=== PATIENT | male | born 1955 | race Caucasian/White ===

== ENCOUNTER 2016-07-09 13:51 | Day surgery (SDC) | payer MEDICAID ==
[~2016-07-09] VITALS: Ht 182.9 cm; Wt 79.8 kg
[~2016-07-09 13:51] MED LIST: ASPIRIN 81MG TA81 MG PO; LIPITOR20 MG PO; NEXIUM40 MG PO; OXYCODONE HYDROC5 MG PO; PLAVIX75 M1 PO; REQUIP 1 MG TABL1 MG PO; SYNTHROID 0.1M0.1 MG PO; ZANAFLEX4 MG NG
[2016-07-09 14:01] VITALS: BP 127/71
[2016-07-09 14:26] VITALS: BP 127/71; BP 156/86
--- NOTE | 2016-07-09 14:34 | Procedure Note ---
Procedure detail Date of procedure: 07/09/16 Anesthesiologist: Flash chi CRNA Complications: None Pre-procedure diagnosis: Facet arthropathy Post-procedure diagnosis: Same Indications for procedure: This patient's a pleasant 61-year-old white male we our attempting to treat in our pain clinic for chronic low back pain secondary to degenerative disc disease lumbar spine multiple levels, disc bulge lumbar spine multiple levels, facet hypertrophy L4-5 and L5-S1. Patient is wanting to come off oral medications. Today we will perform medial branch block at L4 L5, L5-S1 Nursing benefits the patient today and he wishes to proceed. Procedure detail: Informed consent was obtained and the risk and benefits of the procedure was explained to the patient. Patient was taken to the procedure room where noninvasive monitors were placed, including noninvasive blood pressure cuff as well as pulse oximeter. The area over the lumbar spine was cleansed using chlorhexidine as a cleansing solution. I anesthetized the skin and subcutaneous tissues with 1% Lidocaine. I placed 22-gauge spinal needles into the facet joint / medial branches of, L4-L5, and L5-S1 bilaterally. Needle placement was confirmed with fluoroscopy. After confirmation of needle placement, each site was injected with 1 mL of 1% lidocaine and 0.25 % Marcaine and 10 mg of Depo- Medrol. A total of 80 mg of depo medrol was used for bilateral medial branch blocks of L4-L5, and L5-S1 bilaterally. Patient tolerated the procedure without difficulty. There were no complications. Plan and disposition: We will reassess this patient 10 minutes postprocedure. Patient states pain 80- 90 percent relief. We'll follow up with this patient in our pain clinic and reassess his symptoms at that time. at 0587
[2016-07-09 14:45] VITALS: BP 126/68
== END 2016-07-09 14:45 | disposition home or self-care (01) ==
LOC: PM 13:51
PROC: 3E0T33Z Introduction of Anti-inflammatory into Peripheral Nerves and Plexi, Percutaneous Approach (ICD-10-PCS; principal; 2016-07-09)
PROC: 3E0T3BZ Introduction of Anesthetic Agent into Peripheral Nerves and Plexi, Percutaneous Approach (ICD-10-PCS; 2016-07-09)
PROC: BR161ZZ Fluoroscopy of Lumbar Facet Joint(s) using Low Osmolar Contrast (ICD-10-PCS; 2016-07-09)
DX: M54.06 Panniculitis affecting regions of neck and back, lumbar region (principal); M51.36 Other intervertebral disc degeneration, lumbar region
CPT/HCPCS: J1040

== ENCOUNTER → 2016-08-09 | Outpatient (CLI) | payer MEDICAID ==
[2016-08-09 19:45] LABS: AMPHETAMINES/METAMPHETAMINES NEGATIVE ng/mL (<1000)
[2016-08-20 10:39] LABS: Alprazolam Negative (Cutoff=100); Benzodiazepines Negative ng/mL (Cutoff=100); Clonazepam Negative (Cutoff=100); Flurazepam Negative (Cutoff=100); Lorazepam Negative (Cutoff=100); Midazolam Negative (Cutoff=100); Opiates Negative (Cutoff=100); Temazepam Negative (Cutoff=100); Triazolam Negative (Cutoff=100)
== END ==
LOC: LAB 17:52
PROVIDERS: Emergency Medicine
DX: Z79.899 Other long term (current) drug therapy (principal)
CPT/HCPCS: G0480

== ENCOUNTER → 2016-12-13 | Outpatient (CLI) | payer MEDICAID ==
[2016-12-13 16:58] LABS: AMPHETAMINES/METAMPHETAMINES NEGATIVE ng/mL (<1000)
[2016-12-23 14:40] LABS: Opiates Negative (Cutoff=100)
== END ==
LOC: LAB 15:37
PROVIDERS: Emergency Medicine
DX: Z79.899 Other long term (current) drug therapy (principal)

== ENCOUNTER → 2017-01-13 | Outpatient (CLI) | payer MEDICAID ==
[2017-01-13 19:56] LABS: AMPHETAMINES/METAMPHETAMINES NEGATIVE ng/mL (<1000)
[2017-01-20 05:38] LABS: Opiates Negative (Cutoff=100)
== END ==
LOC: LAB 18:18
PROVIDERS: Emergency Medicine
DX: Z79.899 Other long term (current) drug therapy (principal)

== ENCOUNTER 2017-01-26 19:18 | Inpatient (IN) | payer MEDICAID ==
[~2017-01-26] VITALS: Ht 182.9 cm; Wt 81.4 kg
[~2017-01-26 19:18] MED LIST changes: -ZANAFLEX4 MG NG; +ZANAFLEX4 MG PO
[2017-01-26 19:28] VITALS: BP 90/47
[2017-01-26] MEDS ORDERED: SPIRIVA HA1 PUFF/INH IH (19:38)
[2017-01-26] MEDS ORDERED: SYMBICORT1 AE1 IH (19:39)
[2017-01-26] MEDS ORDERED: DIAZEPAM5 M1 PO (19:40)
[2017-01-26] MEDS ORDERED: XOPENOX 0.0.63 MG/3 IN (19:41)
[2017-01-26] MEDS ORDERED: ATROVENT H0.017 MG/A IH (19:43)
[2017-01-26] MEDS ORDERED: FLOMAX 0.4MG C0.4 MG PO (19:44)
[2017-01-26] MEDS ORDERED: MECLIZINE HYDRO25 MG PO (19:45)
[2017-01-26] MEDS ORDERED: LYRICA50 MG PO (19:45)
[2017-01-26 20:12] LABS: HEMOGLOBIN 11.7 g/dL (14.1-18.0); LYMPH # 0.9 K/mm3 (0.7-4.5); LYMPH % 7.2 % (10-50)
--- NOTE | 2017-01-26 20:12 | Emergency Room Report ---
History of Present Illness Time Seen by 1999 Presenting Problem in Triage Pt arrived:Wheelchair Presenting Problem:c/o sob, dizziness and vision problems. Has productive cough. 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 N Clinical Suspician of Infection? Y Mental Status: 1 - Regular (Normal Baseline) Sepsis Risk:Severe Sepsis Risk Have you (or family members/close friends) recently traveled outside the [place]? N If Yes, where/when: Have you had exposure to infectious disease within the past month? N TB? Other? Specify: Source patient, RN notes reviewed, family, old records Exam Limitations no limitations Comment fever with cough w/o hemoptysis and has weakness with hx of lung cancer has had throat cancer in past - pt with dec po intake and dec po intake - pt with inc sob and dec sob with exertion Cardiac Chest Pain Chest pain indicative of cardiac No Timing/Duration this evening Severity moderate ALLERGIES Coded Allergies: albuterol (08/02/15) Home Medications Reported Medications OXYCODONE HCL (Oxycodone Hydrochloride) 10 MG PO TID ROPINIROLE HCL (Requip 1 Mg) 4 MG PO DAILY Tiotropium [place] (Spiriva) 1 PUFF IH DAILY #30 BUDESONIDE/FORMOTEROL FUMARATE (Symbicort 160-4.5 Mcg Inhaler) 1 PUFF IH BID #10 Diazepam 5 MG PO BEDTIME #30 Levalbuterol Hcl (Xopenex 0.63MG NEB) 0.63 MG IN Q6 Ipratropium [place] (Atrovent Hfa) 2 PUFF IH QID #12 TAMSULOSIN HCL (Flomax 0.4MG) 0.4 MG PO QHS Pregabalin (Lyrica 50MG) 150 MG PO BID Meclizine Hcl (Meclizine Hydrochloride) 25 MG PO DAILY Clopidogrel Bisulfate (Plavix) 75 MG PO DAILY Levothyroxine Sodium (Synthroid 0.1MG) 0.1 MG PO DAILY TIZANIDINE HCL (Zanaflex) 4 MG NG Q8 Esomeprazole Magnesium (Nexium 40MG Cap) 40 MG PO DAILY Atorvastatin Calcium (Lipitor 20MG) 20 MG PO DAILY ASPIRIN (Aspirin) 81 MG PO DAILY History Medical History General CAD? No Angina: No [place]: No Hypertension? No Hyperlipidemia? Yes CHF? No DVT? No PE? No COPD? Yes Asthma? No Anemia? Yes GERD? No Gastric ulcers? No GI Bleed? No Hernia? No Thyroid Problems? Yes Hypothyroidism? Yes CVA? Yes Seizures? No Diabetes? No Renal Insuffiency? No End Stage Renal Disease? No UTI? No Stones? No BPH? No GB Disease: No Nephritic Syndrome? No Asplenia? No Hepatitis? No Sickle Cell Disease? No Arthritis? No Migraines? No Cataracts? No Glaucoma? No MRSA? No HIV? No TB? No Anxiety? No Depression? No Cancer? Yes Site: LUNG More? Yes Additional hx: STENTS IN NECK, SPOTS ON LIVER OXYGEN USE, [place] RLS Immunization Hx DT/Tetanus 1-4 Years Ago Surgical Hx Previous Surgery?Y COLONOSCOPY FEEDING TUBE STENTS IN NECK BYPOSY Social History Smoking Hx Smoker: Current Every Day Smoker Tobacco: Yes Type Cigarettes Packs/day < 1 Pack Alcohol Alcohol: No Drugs none Additionial History Additional History no chest pain Review of Systems All Other Systems Reviewed and Negative Constitutional see HPI, fever, weakness Eyes denies drainage ENT denies: ear discharge, epistaxis, throat pain. Respiratory see HPI, cough, shortness of breath, denies wheezing Cardiovascular see HPI, denies chest pain, denies syncope, other Gastrointestinal see HPI, nausea, denies vomiting Genitourinary denies: dysuria, frequency, hesitancy, hematuria. Musculoskeletal denies back pain, denies joint pain, denies neck pain Skin denies rash Psychiatric/Neurological denies headache, denies seizure Physical Exam Vital Signs Vital Signs Date Time Temp Pulse Resp B/P Pulse O2 O2 Flow FiO2 Ox Delivery Rate 01/27 1928 99.2 75 20 90/47 96 3 - WBC >12,000 or <4,000 or 10% bands? 2 or more SIRS Criteria Met? B/P:83/49 MAP:61 Creatinine >2.0? UA output<0.5ml/kg/hr for 2 hrs? Platelet count >100,000? Lactate >2.0mmol/1? INR >1.2 or PTT > than 60 sec? Evidence of Organ Dysfunction? Provider documented clinical suspician of infection? Y Sepsis Criteria Count: 2 Sepsis Risk: Severe Sepsis Risk General Appearance no apparent distress Eye Exam - bilateral eye PERRL, bilateral eye EOMI Ear, Nose, Throat normal ENT inspection Neck supple Respiratory Status No: respiratory distress. Lung Sounds bilateral: decreased breath sounds, rhonchi. 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 No Results/Orders Laboratory Tests 01/26/171946: Troponin I 1.79 H 01/26/171946: Lactic Acid 2.2 H, ESR Pending 01/26/171946: Sodium 131 L, Potassium 4.4, Chloride 94 L, Carbon Dioxide 31, BUN 19 H, Creatinine 1.7 H, Estimated Creat Clear 49 L, Estimated GFR (MDRD) 41, Glucose 124 H, Calcium 8.3 L, Total Bilirubin 0.5, AST 17, ALT 14, Alkaline Phosphatase 64, Total Protein 6.5, Albumin 3.1 L, Globulin 3.4 H, Albumin/ Globulin Ratio 0.9 L, WBC 12.0 H, RBC 3.90 L, Hgb 11.7 L, Hct 36.5 L, MCV 93.5, RDW 14.6, Plt Count 158, MPV 7.6, Gran % 84.9 H, Gran # 10.2 H, Lymphocytes % 7.2 L, Monocytes % 6.3, Eosinophils % 0.9, Basophils % 0.7, Lymphocytes # 0.9, Monocytes # 0.8, Eosinophils # 0.1, Basophils # 0.1, PUBS MCHC 32.0, MCH 29.9 Current Medication Orders Sig/Flip Start time Last Medication Dose Route Stop Time Status Admin Sodium Chloride 1,000 ML .STK-MED ONE 01/26 2018 DC IV Sodium Chloride 1,000 ML .Q4H 01/26 2015 AC 01/26 IV 01/27 Sodium Chloride 10 ML PRN PRN 01/26 2015 AC IV 01/27 2013 Sodium Chloride 10 ML PRN PRN 01/27 2000 AC IV 01/27 1947 Orders Procedure Date/time Status DIET-NOTHING BY MOUTH 01/[address] CHEST W/O CONTRAST 01/26 2018 Active Decision to admit 01/[address] SCAN REQ 01/27 2016 Complete CULTURE, SPUTUM 01/27 2012 Active TROPONIN I 01/27 2012 Complete SED RATE 01/27 2012 Active CHEST-PORTABLE 01/27 1948 Active IV SALINE LOCK 01/27 1948 Active CULTURE, BLOOD 01/27 1948 Active LACTIC ACID 01/27 1948 Complete CBC WITH AUTO DIFF 01/27 1948 Complete CHEM 12 PROFILE 01/27 1948 Complete CM/EKG 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 ST/Twave chgs XRAY/CT/US XRAY/CT/US XRAY chest XR interpretation by reviewed by me Xray Results abnormal (cap) Departure Departure Time of Disposition 2016 Disposition Still a Patient Clinical Impression Primary Impression: Non-STEMI (non-ST elevated myocardial infarction) Secondary Impressions: Pneumonia Qualifiers: Pneumonia type: due to unspecified organism Laterality: right Lung location: lower lobe of lung Qualified Code: J18.1 - Lobar pneumonia, unspecified organism Renal insufficiency Condition STABLE Referrals Anna MORENO,Klaus Cabrera (Family) ED Critical Care Critical Care No at [id number]
[2017-01-26 21:53] VITALS: BP 80/47
[2017-01-26 22:00] VITALS: BP 80/47
[2017-01-26 22:30] VITALS: BP 98/59
--- NOTE | 2017-01-26 22:49 | RADIOLOGY REPORT PS360 ---
CHEST-PORTABLE HISTORY: C/O SOB COPD. Cough. Patient Age: 61 years: Male Ordering Physician: Klaus Castillo MD TECHNIQUE: AP portable upright chest COMPARISON :Previous for 191 CXR FINDINGS Infiltrate is seen throughout the right lung base and to lesser degree right midlung. Findings compatible the right lower lobe pneumonia extending to the likely inferior aspect of right upper lobe at right midlung . COPD hyperexpansion. Mild coarsening markings toward left lung base reflecting mainly chronic changes. Small density projecting second rib end of of shows no significant finding on subsequent CT... Heart is normal in size jesse and mediastinal structures appear satisfactory. Calcified hilar nodes bilaterally The previous dense right upper lobe pneumonia has since resolved since 08/15/2015. Chest wall unremarkable IMPRESSION: ...... 1. Right lower lobe pneumonia; appears to extend into inferior RUL. 2. COPD.
[2017-01-26 23:00] VITALS: BP 96/55
[2017-01-27] VITALS (15 sets, daily range): BP systolic 97–128; BP diastolic 55–67
[2017-01-27 05:18] LABS: HEMOGLOBIN 11.1 g/dL (14.1-18.0); LYMPH # 0.7 K/mm3 (0.7-4.5); LYMPH % 4.8 % (10-50)
[2017-01-27 05:40] LABS: NEUTROPHILS 77 % (42-76)
--- NOTE | 2017-01-27 08:27 | PHARMACY CLINIC NOTE ---
Patient Demographics Patient Demographics Admission date: 01/26/17 Date: 01/27/17 Time: 08 Allergies Coded Allergies: albuterol (08/02/15) HEIGHT- FT: 6 IN: 0.00 K.363 VTE General Information Labs: Laboratory Tests 01/27 01/26 0500 1947 Hematology Hgb (14.1 - 18.0 g/dL) 11.1 L 11.7 L Hct (42.0 - 52.0 %) 34.3 L 36.5 L Plt Count (142 - 424 K/mm3) 141 L 158 Disclaimer The following section includes nursing documentation that has been pulled in for pharmacy review. Patient's VTE score: 6 Patient's VTE Risk: MOD RISK Clinical trial participant? No VTE prophylaxis [id number] VTE prophylaxis ordered? Yes Type of prophylaxis/treatment: VIVIAN at 0810
--- NOTE | 2017-01-27 08:54 | CONSULT NOTE ---
Standard Demographics Patient Demo Date of Consultation: 01/27/17 Referring Provider: Joe Castillo MD Reason for Consultation: NSTEMI PRIMARY DIAGNOSIS: NSTEMI Problem list Problem list: 1. CAD A. Cardiac cath, 2014, mild non-flow limiting disease. 2. History of throat cancer 3. Still smoking A. Reportedly with RIGHT lung cancer that is being watched at this time. 4. Carotid artery stenosis A. History of multiple stents bilaterally History of present illness: History of present illness: 61-year-old white male with 2 day history of increasing weakness, shortness of breath and fatigue. He has noted increased cough with decreased appetite. Upon further questioning patient has had some lightheadedness and dizziness with jaw discomfort over the last several weeks. Symptoms occur after exercise when he is sitting down and resolve spontaneously. Limiting symptoms for his activity is weakness and he denies chest pain. Upon evaluation in the ER yesterday elevated troponins were noted and patient was admitted for pneumonia and a non-STEMI. Cardiology consulted for evaluation and recommendations. Electrocardiogram is sinus with no acute ST elevation. Past Medical History: General: Hypertension No CVA Yes Seizures No TB No COPD Yes Asthma No Diabetes No Angina No [place] No Hyperlipidemia Yes Cancer Yes MRSA No GB Disease No Additional hx STENTS IN NECK, SPOTS ON LIVER OXYGEN USE, [place] RLS Past Surgical HX: Previous Surgery?Y COLONOSCOPY FEEDING TUBE STENTS IN NECK BYPOSY Allergies Coded Allergies: albuterol (08/02/15) Home medications: Reported Medications TIZANIDINE HCL (Zanaflex) 4 MG PO Q8 OXYCODONE HCL (Oxycodone Hydrochloride) 10 MG PO TID ROPINIROLE HCL (Requip 1 Mg) 4 MG PO DAILY Tiotropium [place] (Spiriva) 1 PUFF IH DAILY #30 BUDESONIDE/FORMOTEROL FUMARATE (Symbicort 160-4.5 Mcg Inhaler) 1 PUFF IH BID #10 Diazepam 5 MG PO BEDTIME #30 Levalbuterol Hcl (Xopenex 0.63MG NEB) 0.63 MG IN Q6 Ipratropium [place] (Atrovent Hfa) 2 PUFF IH QID #12 TAMSULOSIN HCL (Flomax 0.4MG) 0.4 MG PO QHS Pregabalin (Lyrica 50MG) 150 MG PO BID Meclizine Hcl (Meclizine Hydrochloride) 25 MG PO DAILY Clopidogrel Bisulfate (Plavix) 75 MG PO DAILY Levothyroxine Sodium (Synthroid 0.1MG) 0.1 MG PO DAILY Esomeprazole Magnesium (Nexium 40MG Cap) 40 MG PO DAILY Atorvastatin Calcium (Lipitor 20MG) 20 MG PO DAILY ASPIRIN (Aspirin) 81 MG PO DAILY Current Medications: Current Medications Azithromycin 500 MG Q24H IV Sodium Chloride 250 ML Ceftriaxone Sodium 1 GM DAILY IV Sodium Chloride 50 ML Fentanyl Citrate 25 MCG PRN PRN IV (UNV) Fentanyl Citrate 50 MCG PRN PRN IV (UNV) Flumazenil 0.2 MG PRN PRN IV (UNV) Heparin Sodium (Beef Lung) 5,000 UNITS PRN PRN IV (UNV) Heparin Sodium/Sodium Chloride 3,000 UNITS PRN PRN IV (UNV) Lidocaine HCl 20 ML ONCE ONE IJ (UNV) Midazolam HCl 1 MG PRN PRN IV (UNV) Midazolam HCl 1 MG PRN PRN IV (UNV) Naloxone HCl 0.4 MG [id number] PRN IV (UNV) Nitroglycerin 800 MCG PRN PRN IV (UNV) Verapamil HCl 5 MG PRN PRN IV (UNV) Sodium Chloride 10 ML PRN PRN IV Levalbuterol HCl 1.25 MG Q6H6 INH Acetaminophen 650 MG Q4HP PRN PO Aspirin 325 MG ONCE ONE PO (DC) Influenza Virus Vaccine Quadrival 0.5 ML PRN PRN IM Morphine Sulfate 2 MG Q2HP PRN IV Nicotine 21 MG DAILYP PRN TD Ondansetron HCl 4 MG Q6HP PRN IV Sodium Chloride 1,000 ML .[id number] IV Aspirin 0 .STK-MED ONE .ROUTE (DC) Azithromycin 0 .STK-MED ONE IV (DC) Ceftriaxone Sodium 0 .STK-MED ONE IV (DC) Azithromycin 500 MG ONCE ONE IV (DC) Sodium Chloride 250 ML Ceftriaxone Sodium 1 GM ONCE ONE IV (DC) Sodium Chloride 50 ML Methylprednisolone Sodium Succinate 125 MG ONCE ONE IV (DC) Methylprednisolone Sodium Succinate 0 .STK-MED ONE .ROUTE (DC) Sodium Chloride 250 ML .STK-MED ONE IV (DC) Sodium Chloride 50 ML .STK-MED ONE IV (DC) Sodium Chloride 1,000 ML .STK-MED ONE IV (DC) Sodium Chloride 1,000 ML .Q4H IV (DC) Sodium Chloride 10 ML PRN PRN IV Sodium Chloride 10 ML PRN PRN IV Immunization HX DT/Tetanus 1-4 Years Flu 2015-17FS Pneumonia RECEIVED IN PAST Other NEEDS A FLU SHOT TB Test in last year No Family history Family HX Family Hx Insignificant No Diabetes Yes CAD Yes Hypertension Yes Hyperlipidemia Yes Cancer No TB No Social Hx: Smoking HX Tobacco Yes Type Cigarettes Packs/day < 1 PACK Alcohol Alcohol: No Hx of Drug Use Drug Use? No Patien't marital status is Patient's support system is good Review of systems: Constitutional weakness. Respiratory cough. Cardiovascular see HPI Gastrointestinal/Abdominal No no symptoms reported Genitourinary No: no symptoms reported. Musculoskeletal neck pain. Neurological No: no symptoms reported. Exam: Admission Vital Signs: 1ST Vital Signs Result Date Time Pulse Ox 96 01/27 1928 B/P 90/47 01/27 1928 O2 Flow Rate 3 01/27 1928 Temp 99.2 01/27 1928 Pulse 75 01/27 1928 Resp 20 01/27 1928 O2 Delivery OXYGEN 01/26 2159 Last Vital Signs: Vital Signs Result Date Time O2 Flow Rate 2 01/27 600 Pulse Ox 97 01/27 600 B/P 115/64 01/27 600 O2 Delivery OXYGEN 01/27 600 Pulse 73 01/27 600 Resp 20 01/27 600 Temp 97.7 01/27 0415 Exam General appearance: alert, awake, no acute distress Neck: carotid bruit Cardiovascular: regular rate & rhythm Respiratory: diminished breath sounds, rhonchi ABD: soft, no tenderness Extremities: moves all, no peripheral edema Neuro: alert, intact, oriented Laboratory data: Laboratory Tests 01/27/17 0500: Sodium 129 L, Potassium 4.0, Chloride 95 L, Carbon Dioxide 28, BUN 19 H, Creatinine 1.3, Estimated Creat Clear 67, Estimated GFR (MDRD) 56, Glucose 151 H, Calcium 7.7 L, Triglycerides 13 L, Cholesterol 82, LDL Cholesterol 30.4, VLDL Cholesterol 2.6, HDL Cholesterol 49.0, WBC 14.2 H, RBC 3.62 L, Hgb 11.1 L, Hct 34.3 L, MCV 94.5, RDW 14.7, Plt Count 141 L, MPV 7.7, Gran % 92.0 H, Gran # 13.1 H, Total Counted 100, Lymphocytes % 4.8 L, Monocytes % 2.6, Eosinophils % 0.5, Basophils % 0.1, Neutrophils 77 H, Band Neutrophils 20 H, Lymphocytes (Manual) 3 L, Lymphocytes # 0.7, Monocytes # 0.4, Eosinophils # 0.1 , Basophils # 0.0, Platelet Estimate NORMAL, Polychromasia SL., Poikilocytosis SL., Rouleaux SL., PUBS MCHC 32.5, MCH 30.8 01/27/17 0030: Lactic Acid 1.2 01/26/171946: Troponin I 1.79 H 01/26/171946: Lactic Acid 2.2 H, ESR 25 H 01/26/171946: Sodium 131 L, Potassium 4.4, Chloride 94 L, Carbon Dioxide 31, BUN 19 H, Creatinine 1.7 H, Estimated Creat Clear 49 L, Estimated GFR (MDRD) 41, Glucose 124 H, Calcium 8.3 L, Total Bilirubin 0.5, AST 17, ALT 14, Alkaline Phosphatase 64, Total Protein 6.5, Albumin 3.1 L, Globulin 3.4 H, Albumin/ Globulin Ratio 0.9 L, WBC 12.0 H, RBC 3.90 L, Hgb 11.7 L, Hct 36.5 L, MCV 93.5, RDW 14.6, Plt Count 158, MPV 7.6, Gran % 84.9 H, Gran # 10.2 H, Lymphocytes % 7.2 L, Monocytes % 6.3, Eosinophils % 0.9, Basophils % 0.7, Lymphocytes # 0.9, Monocytes # 0.8, Eosinophils # 0.1, Basophils # 0.1, PUBS MCHC 32.0, MCH 29.9 Microbiology Date/Time Procedure - Status Source Growth 01/26 2310 Sputum Culture - COMP SPUTUM 01/26 2310 Gram Stain - COMP SPUTUM 01/26 1947 Anaerobic Blood Culture - RECD BLOOD 01/26 1947 Aerobic Blood Culture - RECD BLOOD 01/26 1947 Anaerobic Blood Culture - RECD BLOOD 01/26 1947 Aerobic Blood Culture - RECD BLOOD Plan: Assessment: 1. Elevated troponin consistent with non-STEMI. Continue aspirin and Plavix. Plan for LEFT heart catheterization today. 2. Chronic obstructive pulmonary disease with continued tobacco use 3. RIGHT lower lobe pneumonia by chest x-ray, on antibiotics. Recurrent pneumonia due to aspiration since treatment for throat cancer and non-compliance with dietary recommendations (thickened liquids). 4. Hyponatremia 5. Mild anemia 6. Hyperlipidemia, on statin therapy. LDL 30. 7. Hypothyroidism, on replacement therapy 8. Possible lung cancer 9. History of throat cancer 10. Bilateral carotid bruits with history of stenting bilaterally. Will obtain carotid ultrasound for follow-up. Recommendations: See above. at 0810
[2017-01-27] MEDS ORDERED: LYRICA150 M1 PO (08:56)
[2017-01-27] MEDS ORDERED: NEXIUM 24HR20 MG PO (08:57)
--- NOTE | 2017-01-27 09:09 | HISTORY AND PHYSICAL REPORT ---
Demographics: Admit date: 01/26/17 Chief complaint: sob PRIMARY DIAGNOSIS: NSTEMI Allergies: Coded Allergies: albuterol (08/02/15) History of present illness: History of present illness: 61-year-old white male with 2 day history of increasing weakness, shortness of breath and fatigue. He has noted increased cough with decreased appetite. Upon further questioning patient has had some lightheadedness and dizziness with jaw discomfort over the last several weeks. Symptoms occur after exercise when he is sitting down and resolve spontaneously. Limiting symptoms for his activity is weakness and he denies chest pain. Upon evaluation in the ER yesterday elevated troponins were noted and patient was admitted for pneumonia and a non-STEMI. Cardiology consulted for evaluation and recommendations. Electrocardiogram is sinus with no acute ST elevation. Past medical history: Family HX Diabetes Yes CAD Yes Hypertension Yes Hyperlipidemia Yes Cancer No TB No Immunization HX DT/Tetanus 1-4 Years Ago Flu 2015-FS Pneumonia Received In Past Other NEEDS A FLU SHOT TB Test in last year No General CAD? No Angina: No OR: No Hypertension? No Hyperlipidemia? Yes CHF? No DVT? No PE? No COPD? Yes Asthma? No Anemia? Yes GERD? No Gastric ulcers? No GI Bleed? No Hernia? No Thyroid Problems? Yes Hypothyroidism? Yes CVA? Yes Seizures? No Diabetes? No Renal Insuffiency? No UTI? No Stones? No BPH? No GB Disease: No Nephritic Syndrome? No Asplenia? No Hepatitis? No Sickle Cell Disease? No Arthritis? No Migraines? No Cataracts? No Glaucoma? No MRSA? No HIV? No TB? No Anxiety? No Depression? No Cancer? Yes Site: LUNG More? Yes Additional hx: STENTS IN NECK, SPOTS ON LIVER OXYGEN USE, TAZLINA RLS Past Surgical HX Previous Surgery?Y COLONOSCOPY FEEDING TUBE STENTS IN NECK BYPOSY Current home meds: Reported Medications TIZANIDINE HCL (Zanaflex) 4 MG PO Q8 Pregabalin (Lyrica) 150 MG PO BID #60 Esomeprazole Magnesium (Nexium 24HR) 20 MG PO BID #60 OXYCODONE HCL (Oxycodone Hydrochloride) 10 MG PO TID ROPINIROLE HCL (Requip 1 Mg) 4 MG PO DAILY Tiotropium Willard (Spiriva) 1 PUFF IH DAILY #30 BUDESONIDE/FORMOTEROL FUMARATE (Symbicort 160-4.5 Mcg Inhaler) 1 PUFF IH BID #10 Diazepam 5 MG PO BEDTIME #30 Levalbuterol Hcl (Xopenex 0.63MG NEB) 0.63 MG IN Q6 Ipratropium Willard (Atrovent Hfa) 2 PUFF IH QID #12 TAMSULOSIN HCL (Flomax 0.4MG) 0.4 MG PO QHS Meclizine Hcl (Meclizine Hydrochloride) 25 MG PO DAILY Clopidogrel Bisulfate (Plavix) 75 MG PO DAILY Levothyroxine Sodium (Synthroid 0.1MG) 0.1 MG PO DAILY Atorvastatin Calcium (Lipitor 20MG) 20 MG PO DAILY ASPIRIN (Aspirin) 81 MG PO DAILY Social Hx: Smoking HX Tobacco Yes Type Cigarettes Packs/day < 1 PACK Alcohol Alcohol: No Hx of Drug Use Drug Use? No Patien't marital status is Patient's support system is excellent Review of systems: Constitutional see HPI, weakness. No: fever. Eyes No: drainage. Ears, Nose, Mouth, Throat No ear discharge, No epistaxis, No throat pain Respiratory cough, shortness of breath. No: wheezing. Cardiovascular see HPI, No chest pain, No palpitations, No syncope, other Gastrointestinal/Abdominal see HPI, No abdominal pain, No diarrhea, nausea, poor appetite, poor fluid intake Genitourinary No: dysuria, frequency, hesitancy, hematuria. Musculoskeletal No: back pain, joint pain, joint swelling, neck pain. Skin No: rash. Neurological No: headache, seizure disorder. Psychiatric No: anxious, depressed. Exam: Lab data for last 24 hours: Laboratory Tests 01/27/17 0500: Sodium 129 L, Potassium 4.0, Chloride 95 L, Carbon Dioxide 28, BUN 19 H, Creatinine 1.3, Estimated Creat Clear 67, Estimated GFR (MDRD) 56, Glucose 151 H, Calcium 7.7 L, Triglycerides 13 L, Cholesterol 82, LDL Cholesterol 30.4, VLDL Cholesterol 2.6, HDL Cholesterol 49.0, WBC 14.2 H, RBC 3.62 L, Hgb 11.1 L, Hct 34.3 L, MCV 94.5, RDW 14.7, Plt Count 141 L, MPV 7.7, Gran % 92.0 H, Gran # 13.1 H, Total Counted 100, Lymphocytes % 4.8 L, Monocytes % 2.6, Eosinophils % 0.5, Basophils % 0.1, Neutrophils 77 H, Band Neutrophils 20 H, Lymphocytes (Manual) 3 L, Lymphocytes # 0.7, Monocytes # 0.4, Eosinophils # 0.1 , Basophils # 0.0, Platelet Estimate NORMAL, Polychromasia SL., Poikilocytosis SL., Rouleaux SL., PUBS MCHC 32.5, MCH 30.8 01/27/17 0030: Lactic Acid 1.2 01/26/171946: Troponin I 1.79 H 01/26/171946: Lactic Acid 2.2 H, ESR 25 H 01/26/171946: Sodium 131 L, Potassium 4.4, Chloride 94 L, Carbon Dioxide 31, BUN 19 H, Creatinine 1.7 H, Estimated Creat Clear 49 L, Estimated GFR (MDRD) 41, Glucose 124 H, Calcium 8.3 L, Total Bilirubin 0.5, AST 17, ALT 14, Alkaline Phosphatase 64, Total Protein 6.5, Albumin 3.1 L, Globulin 3.4 H, Albumin/ Globulin Ratio 0.9 L, WBC 12.0 H, RBC 3.90 L, Hgb 11.7 L, Hct 36.5 L, MCV 93.5, RDW 14.6, Plt Count 158, MPV 7.6, Gran % 84.9 H, Gran # 10.2 H, Lymphocytes % 7.2 L, Monocytes % 6.3, Eosinophils % 0.9, Basophils % 0.7, Lymphocytes # 0.9, Monocytes # 0.8, Eosinophils # 0.1, Basophils # 0.1, PUBS MCHC 32.0, MCH 29.9 Microbiology 01/26 2310 SPUTUM: Sputum Culture - COMP 01/26 2310 SPUTUM: Gram Stain - COMP 01/26 1947 BLOOD: Anaerobic Blood Culture - RECD 01/26 1947 BLOOD: Aerobic Blood Culture - RECD 01/26 1947 BLOOD: Anaerobic Blood Culture - RECD 01/26 1947 BLOOD: Aerobic Blood Culture - RECD Admission vital signs: 1ST Vital Signs Result Date Time Pulse Ox 96 01/27 1928 B/P 90/47 01/27 1928 O2 Flow Rate 3 01/27 1928 Temp 99.2 01/27 1928 Pulse 75 01/27 1928 Resp 20 01/27 1928 O2 Delivery OXYGEN 01/26 2159 Exam General appearance: alert Eyes: anicteric, PERRLA ENT: dry mucous membranes Neck: no JVD Cardiovascular: regular rate & rhythm, murmur Respiratory: no respiratory distress, rhonchi ABD: soft Genitourinary: no hematuria Extremities: moves all Musculoskeletal: equal muscle strength Skin: dry 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 Renal insufficiency 2. CAP (community acquired pneumonia) 3. Non-STEMI (non-ST elevated myocardial infarction) 4. Radiculopathy of lumbar region 5. Dysphagia Plan: will use abx and have card see pt at 0908
--- NOTE | 2017-01-27 09:39 | RADIOLOGY REPORT PS360 ---
CT CHEST W/O CONTRAST HISTORY: COUGH/CANCER history of lung cancer and throat cancer Patient Age: 61 years: Male Ordering Physician: Klaus Castillo MD TECHNIQUE: Helical CT scanning performed the chest. No oral or IV contrast utilized. COMPARISON :Previous CTA chest for . FINDINGS Prominent COPD.. Centrlobar emphysematous changes with hyperexpansion. Prominent bleb formation. Most evident towards the apices and upper lung giordano Patchy bronchopneumonia pattern throughout right lung. Numerous patchy areas of infiltrate surrounding the airways seen involving the lateral RLL, Right Middle Lobe ( mainly lateral segment RML), as well as patchy infiltrates extending into the RUL. Findings compatible with bronchopneumonia throughout these regions.. With some of these areas more prominent areas infiltrate there appears to be slight airway thickening... For example at the dense infiltrates seen lateral aspect of theq right lower lobe and lateral right middle lobe. At the RUL on axial image 30 there focal more stellate appearing density measures over 11 mm size with radiating margins is associated with a linear area of scarring which extends posteriorly at the RUL best seen on sagittal images 32-36.. Given history a history of lung cancer this could be related to such. No interval studies of the chest at this facility since July 2015 available for comparison.. Resume her outside studies. In either case this area requires a follow-up CT after the acute pneumonia episode resolves . Generous right jesse most likely reflecting generous pulmonary artery. No discrete hilar or significant mediastinal adenopathy. Scattered calcified nodes at right jesse and subcarinal region reflecting old granulomatous disease. Left lung. Only note Slight coarsening markings at the very inferior aspect of posterior sulcus reflecting likely mild fibrotic changes and atelectasis here. Doubt infiltrate here on left. No discrete focal pneumonia otherwise on left lung Uppermost abdomen. Adrenals appear satisfactory. Limited views of liver slightly inhomogeneous appearance but are this is due to streak artifact. No pleural or chest wall lesions.No pleural effusion.. No pneumothorax No rib fracture or lesions. Thoracic Spine with mild degenerative changes but no lesions evident. Dense common carotid artery calcification vs possible stents noted here bilaterally. IMPRESSION: 1. Bronchopneumonia involving the right lower lobe, right middle and right upper lobe 2. Particularly note more bothersome stellate 11 mm nodular density seen at the RUL axial image 30/coronal slice 49.. Although this could be associated with the linear area of scarring extending posteriorly at the RUL. Cannot exclude a significant lung lesion/nodule here particularly with given history... Requires correlation with history & any outside interval studies since July,. Recommend follow-up CT with contrast within 1 month, & after the current pneumonia resolves to further evaluate this region. 3. Pronounced Emphysema. Hyperexpansion/COPD. Bleb formation most evident at the apices.
--- NOTE | 2017-01-27 11:44 | RADIOLOGY REPORT PS360 ---
CARDIAC CATHETERIZATION DATE OF CATHETERIZATION:01/27/2017 11:18 AM PROCEDURES: 1. Left heart catheterization 2. Left ventriculogram 3. Selective coronary angiogram 4. Bare-metal stent deployment to the mid large circumflex artery INDICATION FOR TEST: 1. Acute non-ST elevation myocardial infarction troponin I 1.79 2. History of presumed lung cancer with possible preoperative evaluation needed for partial pneumonectomy 3. Coronary artery disease Informed consent was obtained prior to the procedure. COMPLICATIONS: None ESTIMATED BLOOD LOSS: Less than 10 ml. TECHNIQUE: One percent lidocaine was used to anesthetize the right groin. The right femoral artery was accessed via the Seldinger technique. A 4-Monegasque sheath was placed in the right femoral artery. The JL-4 and JR-4 catheter was also used to perform left heart catheterization selective coronary angiogram and left ventriculogram. There was a lesion in the circumflex artery which was the likely culprit for the acute non-ST elevation myocardial infarction. After much consideration and was decided this vessel should be revascularized in hopes to give this gentleman the best opportunity for potential lung surgery for his presumed lung cancer. I felt a bare-metal stent would provide him acute non-ST elevation myocardial infarction coverage as well as allow him to have surgery in 5 weeks while being off dual antiplatelet therapy. Because of this 8000 units of heparin was administered intra-arterially creating an ACT out of range. Brilinta 180 mg was given on the table and the 4 Monegasque sheath was exchanged for a 6 Monegasque sheath. An EBU 3.75 guide catheter was used intubate the left main artery and a BMW wire was placed in the circumflex artery. A 3 mm x 22 mm bare-metal integrity stent was deployed at 20 warner. 700 mcg of coronary nitroglycerin was administered and there remains defect distally. A 3 mm x 9 mm bare-metal stent was then deployed at 14 warner with the balloon brought back between the 2 stents and deployed at 24 measuring. JAVIER-3 flow was present before and after the procedure. At the end of the procedure the apparatus was removed the groin is reprepped closure changed sheath was removed good hemostasis was achieved using Perclose device patient transferred to the postop holding area in stable condition ANGIOGRAPHIC RESULTS: 1. The left main artery normal 2. The left anterior descending artery is a tortuous vessel with a mild mid myocardial bridge and free of atherosclerotic plaque 3. The circumflex artery is a large vessel and has a mid vessel 40-50% stenosis which appears to be the culprit for the acute non-STEMI 4. The ramus intermedius is a large vessel and normal 5. The right coronary artery is a nondominant yet still large 3.5 mm vessel and has a mid vessel concentric 40% stenosis 6. The LIU ventriculogram reveals hyperdynamic ejection fraction 70% 7. The left ventricular end-diastolic pressure 5 mmHg IMPRESSION: 1. Acute non-ST elevation myocardial infarction with a nonculprit vessel most likely being the dominant circumflex artery . 2. Successful bare-metal stenting of the stent dominant circumflex artery culprit stenosis reduced to 0% with 2 bare-metal stents 3. Normal to hyperdynamic ejection fraction 4. Normal left ventricular end-diastolic pressure 5. Mild to moderate nonflow limiting nondominant mid right coronary artery disease PLAN: 1. Brilinta and aspirin for 30 days 2. LDL less than 55 3. Cardiac rehabilitation 4. Avoidance of tobacco products 5. Standard therapy including rola inhibitors and carvedilol if blood pressure will allow
--- NOTE | 2017-01-27 15:24 | CARDIOVASCULAR REPORT ---
"Cerebrovascular Exam Indications: 785.9 Bruit. IMPRESSIONS 1. The bilateral vertebral arteries are patent with normal antegrade flow. 2. Study suggests 50-69% stenosis involving the right internal carotid artery and the left internal carotid artery. No change from the study of 26-Oct-2015. History: A bruit of the left carotid artery. A bruit of the right carotid artery. Coronary artery disease. Risk factors: Current tobacco use. Hypertension. Hyperlipidemia. Labs, prior tests, procedures, and surgery: Right carotid stent. Left carotid stent. Labs, prior tests, procedures, and surgery: Right carotid stent. Left carotid stent. Carotid duplex study. Complete study and Doppler flow study including spectral analysis, color and bolton scale imaging. Height: Height: 182.9cm. Height: 72in. Weight: Weight: 77.1kg. Weight: 169.6lb. Body mass index: BMI: 23.1kg/m^2. Body surface area: BSA: 1.98m^2. Location: Bedside. Patient status: Inpatient. Tables: Arterial flow: + +--------+--------+ |Location |V sys |V ed | + +--------+--------+ |Right CCA - proximal|105cm/s |25.1cm/s| + +--------+--------+ |Right CCA - distal |70.7cm/s|20.4cm/s| + +--------+--------+ |Right ECA |141cm/s |--------| + +--------+--------+ |Right ICA - proximal|77.5cm/s|25.8cm/s| + +--------+--------+ |Right ICA - mid |142cm/s |42.6cm/s| + +--------+--------+ |Right ICA - distal |153cm/s |39.3cm/s| + +--------+--------+ |Right vertebral |74.3cm/s|--------| + +--------+--------+ |Left CCA - proximal |340cm/s |78.6cm/s| + +--------+--------+ |Left CCA - distal |233cm/s |42.4cm/s| + +--------+--------+ |Left ECA |108cm/s |--------| + +--------+--------+ |Left ICA - proximal |154cm/s |44.9cm/s| + +--------+--------+ |Left ICA - mid |147cm/s |46.3cm/s| + +--------+--------+ |Left ICA - distal |108cm/s |37.5cm/s| + +--------+--------+ |Left vertebral |69.8cm/s|--------| + +--------+--------+ Velocity ratios: + + + + + + | |Right, V sys|Right, V ed|Left, V sys|Left, V ed| + + + + + + |Max ICA/dist CCA|2.16 |2.09 |0.66 |1.09 | + + + + + + (Report amended ) Electronically signed by: Ihsan Lucia [id number]"
--- NOTE | 2017-01-27 21:09 | RADIOLOGY REPORT PS360 ---
PROCEDURE: 2-D M-mode and color Doppler study INDICATIONS FOR THE TEST: Chest pain COPDX Heart Murmur Tobacco Smoking Palpitations Fatigue Syncope Edema Hypertension Diabetes Mellitus Rheumatic Fever SOB FANG Obesity Hyperlipidemia Family History HD Additional History NSTEMI PATIENT INFORMATION HEIGHT: 72 WEIGHT:170 GENDER: Male B/P:99/57 2-D/M-MODE INTERPRETATION: 2-D MEASUREMENTS OBSERVED VALUES IN CMS Right Ventricular Dimension (RVDd) 3.4 Interventricular Septum (Thickness)(IVsd) 1.0 Left Ventricular Internal Dimensions(LVIDd) 4.7 Left Ventricular Posterior Wall (Thickness)(LVPWd) 1.0 Aortic Root 2.8 Aortic Cusp Separation 2.3 Left Atrial Dimensions (LAD) 2.3 2D 1. This is technically difficult study because of the patient's factor and poor acoustic windows. 2. The left atrium is normal size, left ventricle is normal size, visually estimated ejection fraction 55% with no obvious regional wall motion abnormality, endocardial surfaces are poorly visualized. 3. The right atrium and right ventricle are mildly enlarged with normal contractility. 4. The aortic valve is minimally thickened and fibrosed. 5. The mitral and tricuspid valve are grossly normal. 6. No significant pericardial effusion noted. DOPPLER INTERROGATION: Doppler interrogation of the aortic, mitral and tricuspid valvular presence of mild mitral and tricuspid regurgitation, tricuspid and jet velocity insufficient for calculation of the right ventricular systolic pressure, diastolic parameters are inconclusive. CONCLUSION: 1. Technically difficult study because of the patient's factor and poor acoustic windows. 2. Normal left ventricular size, preserved left ventricular systolic function, visually estimated ejection fraction 55% with no obvious regional wall motion abnormality diastolic parameters are inconclusive. 3. Mild mitral and tricuspid regurgitation. 4. No significant pericardial effusion noted.
--- OUTSIDE RECORDS SUMMARY | 2017-02-05 23:57 | External Medical Summary Rpt | CCD ---
Author Author , NAZ Organization NAZ Address Unknown Phone Care Team Providers Care Cream Dumper Name Role Phone YUE, YUE Unavailable Unavailable ADEGBOYEGA RIVAS, Unavailable Unavailable ADEGBOYEGA RIVAS ALLRAN JR CALEB, ALLRAN Unavailable Unavailable JR CALEB ALLRAN JR CALEB, ALLRAN Unavailable Unavailable JR CALEB NEIDA CORREA MD, PSC, Unavailable Unavailable NEIDA CORREA MD, PSC AOUAD OCTAVIANO, AOUAD OCTAVIANO Unavailable Unavailable ATTILI ANI, ATTILI Unavailable Unavailable ANI AYACH STANLEY, AYACH STANLEY Unavailable Unavailable BEINEKE, BEINEKE Unavailable Unavailable BLACK JAZZMINE, BLACK JAZZMINE Unavailable Unavailable PIHLIP ALL, PHILIP ALL Unavailable Unavailable PHILIP ULICES, PHILIP ULICES Unavailable Unavailable CHRISTINA RICH, Unavailable Unavailable CHRISTINA RICH RING MAT, RING MAT Unavailable Unavailable HUTCHINS CAR, HUTCHINS Unavailable Unavailable CAR HUTCHINS-VISE YOSVANY, Unavailable Unavailable HUTCHINS-VISE YOSVANY LINO CALEB, Unavailable Unavailable LINO CALEB [facility] Unavailable Unavailable [facility], [facility], Unavailable Unavailable [facility] P[facility], Unavailable Unavailable [facility] Unavailable Unavailable COMPANY, [facility] ESPINO, Unavailable Unavailable ESPINO ESPINO ROZINA, Unavailable Unavailable ESPINO ROZINA SHIRAZ WELDON Unavailable Unavailable SHIRAZ TONY Unavailable Unavailable CECI LOREDO, Unavailable Unavailable CECI WELDON [facility], Unavailable Unavailable [facility] JARRETT DEMARCUS, Unavailable Unavailable JARRETT DEMARCUS REAGAN HANKINS, Unavailable Unavailable REAGAN HANKINS BRANDEE ADR, BRANDEE Unavailable Unavailable ADR PEPPER MAR, PEPPER Unavailable Unavailable MAR DUFF, DUFF Unavailable Unavailable MOJGAN EDU, MOJGAN Unavailable Unavailable EDU ESCOTT EDW, ESCOTT Unavailable Unavailable EDW BUSH, BUSH Unavailable Unavailable TERRELL JAM, Unavailable Unavailable TERRELL JAM [facility], [facility]available Unavailable [facility], [facility], Unavailable Unavailable [facility] Unavailable Unavailable AMBULANCE, [facility] Unavailable Unavailable AMBULANCE, [facility] Unavailable Unavailable HOSPITAL, [facility] MOJICA NAN, MOJICA Unavailable Unavailable NAN FRYMAN EUG, FRYMAN Unavailable Unavailable EUG FRANCISCO, FRANCISCO Unavailable Unavailable FRANCISCO KAMILA, FRANCISCO Unavailable Unavailable KAMILA KATE, KATE Unavailable Unavailable KAHN, KAHN Unavailable Unavailable KAHN PHI, KAHN Unavailable Unavailable PHI AMATO JONATAN, Unavailable Unavailable AMATO JONATAN HAGENSCHNEIDER, Unavailable Unavailable HAGENSCHNEIDER HAGENSCHNEIDER ULICES, Unavailable Unavailable HAGENSCHNEIDER ULICES HAGENSCHNEIDER, Unavailable Unavailable NANDINI K, HAGENSCHNEIDER, NANDINI K [facility] Unavailable Unavailable INC, [facility] Unavailable Unavailable [facility], [facility] MILLER, MILLER Unavailable Unavailable MILLER VENANCIO, MILLER Unavailable Unavailable VENANCIO MILLER VENANCIO, MILLER Unavailable Unavailable VENANCIO PAUL JOAQUÍN S, Unavailable Unavailable PAUL, JOAQUÍN S [facility], Unavailable Unavailable [facility] ROGERS JONATAN, ORGERS JONATAN Unavailable Unavailable HOOS R, HOOS R Unavailable Unavailable [facility] Unavailable Unavailable [place], [facility] Unavailable Unavailable [place], [facility] KAYFAN, KAYFAN Unavailable Unavailable NANCY ABR, NANCY Unavailable Unavailable ABR [facility] Unavailable Unavailable [facility], [facility] Unavailable Unavailable MEDICAL G, [facility] RHONDA KHAN, RHONDA ERIN Unavailable Unavailable [facility] # Unavailable Unavailable [id number], [facility] # [id number] [facility] Un[facility] Un[facility], [facility] Unavailable Unavailable HOLDING, [facility] Unavailable Unavailable [facility]INGS, [facility] Unavailable Unavailable [facility]INGS[facility] Unavailable Unavailable HOLDINGS, [facility], Unavailable Unavailable [facility], Unavailable Unavailable [facility] Unavailable Unavailable [facility] AM, [facility] PALACIOS CORY, PALACIOS Unavailable Unavailable CROY ROCCO GUERRA, Unavailable Unavailable [facility], Unavailable Unavailable [facility] Unavailable Unavailable CENTER,, [facility], [facility] Unavailable Unavailable CENTER, [facility], [facility], [facility] Unavailable Unavailable ASSOCIAT, [facility] [place] Unavailable Unavailable HOSPITALIST, [facility]available Unavailable MEDICAL, [facility] Unavailable Unavailable MEDICAL CENTER, [facility], [facility] PRO[facility] COORDINATOR JESSIE Unavailable Unavailable CO HOS, [facility], [facility] PRO[facility] COORDINATOR [facility] SHELLIE, SHELLIE Unavailable Unavailable SHELLIE IRM, SHELLIE Unavailable Unavailable IRM [facility], Unavailable Unavailable [facility] Unavailable Unavailable CLINIC, [facility] KOURTNEY HENRIK, KOURTNEY HENRIK Unavailable Unavailable [facility], Unavailable Unavailable [facility] OSCAR KWA, OSCAR KWA Unavailable Unavailable HDZ VARGAS, HDZ Unavailable Unavailable [facility] Unavailable Unavailable [facility], [facility] [place], Unavailable [place]available [place] INA PRA, INA Unavailable Unavailable PRA VAIBHAV HEN, VAIBHAV Unavailable Unavailable HEN EVERARDO JR NGOZI, EVERARDO Unavailable Unavailable JR NGOZI [facility] Unavailable Un[facility], [facility] RAISSI DRI, RAISSI Unavailable Unavailable DAVID MCKEON, ZHANE, Unavailable Unavailable DAVID RINALDINI ETHAN, Unavailable Unavailable RINALDINI ETHAN RINALDINI ETHAN, Unavailable Unavailable RINALDINI ETHAN RINALDINI, MINOR, Unavailable Unavailable RINALDINI, MINOR JAJA CHR, JAJA CHR Unavailable Unavailable JAJA, BRITTANY M, Unavailable Unavailable JAJA, BRITTANY M LEXIE, LEXIE Unavailable Unavailable LEXIE KAMILA, Unavailable Unavailable LEXIE KAMILA BRITANY MAT, Unavailable Unavailable BRITANY MAT SIGMUND ADOLFO, SIGMUND Unavailable Unavailable ADOLFO [facility], Unavailable Unavailable [facility] Un[facility] Un[facility], [facility] Unavailable [facility], [facility] Unavailable Unavailable [facility], [facility] Unavailable [facility]available [facility] Unavailable Unavailable EMERGENCY PHYS, [facility] Unavailable Unavailable PHYSICIAN SERVI, [facility] BRANDY DENNEY, BRANDY Unavailable Unavailable [facility] Unavailable Unavailable [facility], [facility], Unavailable Unavailable [facility], Unavailable Unavailable [facility] TODD SCO, TODD Unavailable Unavailable SCO TAMAREN CECILIA, TAMAREN Unavailable Unavailable CECILIA TAMAREN CECILIA, TAMAREN Unavailable Unavailable CECILIA TAMAREN, CHAMP, Unavailable Unavailable TAMAREN, CHAMP [facility] Unavailable Unavailable ASSIST, [facility], Unavailable Unavailable [facility] Unavailable Unavailable [place] [facility] SANTOSH BROOKS, Unavailable Unavailable SANTOSH BROOKS, Unavailable Unavailable HANNAH URIAS, Unavailable Unavailable HANNAH FROST [facility]ITAL STEVIE, VITAL STEVIE Unavailable Unavailable [facility] # Unavailable Unavailable [id number], [facility] # [id number] BRISSA IV, Unavailable Unavailable [facility] PELON TARAH, PELON Unavailable Unavailable TARAH BRIAN KAMILA, BRIAN Unavailable Unavailable KAMILA LAURENCE GLE, LAURENCE Unavailable Unavailable [facility] Un[facility], Un[facility] ZAYDAN, ZAYDAN Unavailable Unavailable ZAYDAN MUH, ZAYDAN Unavailable Unavailable MU Purpose Continuity of Care Document - 05-14-2007 through 2016 Problems Code Diagnosis DOS Provider Status J449 CHRONIC 12-22-2016 [facility] 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 UNS EQUIPME C329 MALIGNANT 12-13-2016 [facility] 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PHYSICIANS LARYNX GROUP UNSPECIFIED 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 R7981 ABNORMAL 12-13-2016 [facility] BLOOD-GAS PHYSICIANS LEVEL GROUP C16763 OTHER LONG 12-13-2016 [facility] TERM PHYSICIANS CURRENT GROUP DRUG THERAPY E871 HYPO-OSMOLA 11-15-2016 [facility] HYPONATREMI A I959 HYPOTENSION 11-15-2016 [facility]ITAL[facility] UNSPECIFIED N179 ACUTE 11-15-2016 [facility]ITAL[facility] FAILURE UNSPECIFIED R079 CHEST PAIN 11-15-2016 [facility] UNSPECIFIED HOSPITALIST R0902 HYPOXEMIA 11-15-2016 [facility] O80968 DECREASED 11-14-2016 [facility] BLOOD [facility] CELL COUNT HOSPITAL UNSPECIFIED J441 CHRONIC 11-14-2016 [facility] OBSTRUCTIVE N EMERGENCY PULMONARY PHYS DZ W/EXACERBAT ION J9601 ACUTE 11-14-2016 [facility] RESPIRATORY [facility] FAILURE HOSPITAL WITH HYPOXIA N183 CHRONIC 11-14-2016 [facility] KIDNEY [facility] DISEASE HOSPITAL STAGE 3 MODERATE R0602 SHORTNESS 11-14-2016 [facility] OF BREATH N EMERGENCY PHYS C760 MALIGNANT 10-14-2016 [facility] 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MEDICAL HEAD FACE CLINIC AND NECK G459 TRANSIENT 10-04-2016 [facility] ISCHEMIC MEDICAL G ATTACK UNSPECIFIED I779 DISORDER OF 10-04-2016 [facility] ARTERIES HEALTH AND MEDICAL G ARTERIOLES UNSPECIFIED I10 ESSENTIAL 10-03-2016 [facility] PRIMARY HEALTH HYPERTENSIO MEDICAL G N I6521 OCCLUSION 10-03-2016 [facility] AND HEALTH STENOSIS OF MEDICAL G RIGHT CAROTID ARTERY R531 WEAKNESS 10-03-2016 [facility] D696 THROMBOCYTO 10-02-2016 [facility] UNSPECIFIED E039 HYPOTHYROID 10-02-2016 [facility] UNSPECIFIED G4733 OBSTRUCTIVE 10-02-2016 [facility] APNEA ADULT PEDIATRIC 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 AMBULANCE Z8673 PERSONAL HX 10-02-2016 [facility] TIA & HOSPITAL CEREB INFARCT NO RESID DEFICIT A419 SEPSIS 10-01-2016 [facility] ORGANISM HOSPITAL E8342 HYPOMAGNESE 10-01-2016 [facility] CELESTINE N EMERGENCY PHYS E860 DEHYDRATION 10-01-2016 [facility] N EMERGENCY PHYS J158 PNEUMONIA 10-01-2016 [facility] DUE TO N EMERGENCY OTHER PHYS SPECIFIED BACTERIA J219 ACUTE 10-01-2016 [facility] BRONCHIOLIT RADIOLOGY IS ASSOCIAT UNSPECIFIED G24575 GENERALIZED 10-01-2016 [facility] ABDOMINAL RADIOLOGY TENDERNESS ASSOCIAT R42 DIZZINESS 10-01-2016 [facility] AND RADIOLOGY GIDDINESS ASSOCIAT R509 FEVER 10-01-2016 [facility] UNSPECIFIED RADIOLOGY ASSOCIAT R51 HEADACHE 10-01-2016 [facility] C99005 PRESENCE OF 10-01-2016 [facility] VASCULAR HOSPITAL IMPLANTS AND GRAFTS C159 MALIGNANT 09-21-2016 [facility] 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HOME ESOPHAGUS MEDICAL UNSPECIFIED EQUIPME H22578 UNSPECIFIED 09-06-2016 [facility] DEFORMITY PHYSICIANS OF GROUP UNSPECIFIED FINGERS M4726 OTH 08-12-2016 [facility] SP[facility]YL[facility]IS [facility] INC W/RADICULOP ATHY LUMBAR REGION N56925 SPONDYLOSIS 08-12-2016 NEIDA CORREA, W/O , PSC MYELOPATH/R ADICULOPATH Y LUMB RGN R600 LOCALIZED 07-31-2016 [facility] EDEMA RADIOLOG[facility] ASSOCIAT [id number] LAC W/O FB 07-31-2016 [facility] FINGER W/O HOSPITAL DAMAGE NAIL INIT A85195K LAC W/O FB 07-31-2016 [facility] FINGER W/O HOSPITAL DAMAGE NAIL INIT L84180Z LAC W/O FB 07-31-2016 [facility] FINGER W/O HOSPITAL DAMAGE NAIL INIT [id number] LACERATION 07-31-2016 [facility] W/O FOREIGN N EMERGENCY BODY RT PHYS HAND INITIAL ENC V07842U LACERATION 07-31-2016 [facility] W/O FOREIGN N EMERGENCY BODY LT PHYS HAND INITIAL ENC M24599P PUNCTURE 07-31-2016 [facility] WOUND W/FB RADIOLOGY LT HAND ASSOCIAT INITIAL ENC B2516FA UNSPECIFIED 07-31-2016 [facility] INJURY LT RADIOLOGY WRIST HAND ASSOCIAT FINGERS INITIAL Y9389 ACTIVITY 07-31-2016 [facility] OTHER N EMERGENCY SPECIFIED PHYS 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 Z8589 PERSONAL HX 07-31-2016 [facility] NEOPLASM HOSPITAL OTH ORGANS & SYSTEMS Y84251 PERSONAL 07-31-2016 [facility] HISTORY OF [facility] OTHER [facility] SPECIFIED CONDITIONS Z955 PRESENCE OF 07-31-2016 [facility] CORONARY [facility] ANGIOPLASTY HOSPITAL IMPLANT & GRAFT H8110 BENIGN 07-17-2016 [facility] UNSPECIFIED EAR J40 BRONCHITIS 07-17-2016 [facility] SPECIFIED HOSPITAL ACUTE OR CHRONIC J439 EMPHYSEMA 07-17-2016 [facility] UNSPECIFIED RADIOLOGY ASSOCIAT J9811 ATELECTASIS 07-17-2016 [facility]AT R110 NAUSEA 07-17-2016 [facility] N EMERGENCY PHYS Z8521 PERSONAL 07-17-2016 [facility] OF [facility] MALIGNANT HOSPITAL 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LARYNX K94692 OTHER 07-17-2016 [facility] STATES M5136 OTH 07-09-2016 [facility] INTERVERTEB [facility] RAL DISC INC DEGEN LUMBAR REGION M5406 PANNICULITI 07-09-2016 [facility] S AFFCT MEM HOS[facility] REGIONS NCK INC BACK LUMB REGION G8929 OTHER 06-18-2016 [facility] CHRONIC [facility] PAIN INC R5383 OTHER 06-18-2016 [facility] FATIGUE PHYSICIANS GROUP Z23 ENCOUNTER 06-18-2016 [facility] FOR PHYSICIANS IMMUNIZATIO GROUP N M5126 OT 05-14-2016 SANTANA HAQ MD, PSC RAL DISC DISPLACEMEN T LUMBAR RGN G629 POLYNEUROPA 04-24-2016 [facility] THY PHYSICIANS UNSPECIFIED GROUP G2581 RESTLESS 03-27-2016 [facility] LEGS PHYSICIANS SYNDROME GROUP J690 PNEUMONITIS 03-27-2016 [facility] DUE TO PHYSICIANS INHALATION GROUP OF FOOD AND VOMIT R1310 DYSPHAGIA 03-27-2016 [facility] UNSPECIFIED PHYSICIANS GROUP M5416 RADICULOPAT 03-18-2016 [facility] HY LUMBAR MEM HOS[facility] REGION INC R030 ELEVATED 02-28-2016 [facility] BLOOD-PRESS PHYSICIANS URE READING GROUP WITHOUT DX HTN I951 ORTHOSTATIC 01-02-2016 [facility] PHYSICIANS HYPOTENSION GROUP M1288 OTHER 01-02-2016 [facility] SPECIFIC PHYSICIANS ARTHROPATHI GROUP ES NEC OTHER SPEC SITE R1319 OTHER 12-27-2015 [facility] R64 CACHEXIA 12-27-2015 [facility] R911 SOLITARY 12-27-2015 [place] PULMONARY MEDICAL NODULE CLINIC 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 R55 SYNCOPE AND 12-26-2015 [facility] COLLAPSE PHYSICIANS GROUP I739 PERIPHERAL 12-22-2015 [facility] VASCULAR [facility] UNSPECIFIED J329 CHRONIC 12-22-2015 [facility] SINUSITIS [facility] K219 GASTRO-ESOP 12-22-2015 [facility] REFLUX [facility] WITHOUT ESOPHAGITIS M4316 SPONDYLOLIS 12-05-2015 [place] [facility]ES[facility] MEDICAL LUMBAR IMAGING ASS REGION Z048 ENCOUNTER 12-05-2015 [place] [facility] MEDICAL OBSERVATION IMAGING ASS OTHER SPEC REASONS I771 STRICTURE 12-01-2015 [facility] OF ARTERY [facility]OS[facility] INC R1311 DYSPHAGIA 11-30-2015 [facility] ORAL [facility] R1313 DYSPHAGIA 11-30-2015 [facility] R918 OTHER 11-29-2015 [facility] ABNORMAL FINDING OF LUNG FIELD Z8701 PERSONAL 11-29-2015 [place] HISTORY OF HOSPITAL PNEUMONIA RECURRENT I6523 OCCLUSION & 10-26-2015 [place] [facility] MEDICAL BILATERAL IMAGING ASS CAROTID ARTERIES R0989 OTH SPEC SX 10-26-2015 [place] & SIGNS MEDICAL INVLV THE IMAGING ASS CIRC & RESP SYS Z720 TOBACCO USE 10-26-2015 [facility] D649 ANEMIA 09-22-2015 [facility] UNSPECIFIED [facility] I16452 UNSPECIFIED 09-22-2015 [facility] ASTHMA MEDICAL UNCOMPLICAT [facility] ED J850 GANGRENE 09-22-2015 [facility] AND MEDICAL NECROSIS OF [facility] LUNG Y844 ASPIRATION 08-31-2015 [facility] ABNORMAL [place] REACTION PT/LATR COMP N93675 ENCOUNTER 08-24-2015 [facility] PREPROCEDUR AL EXAMINATION J58114 PERSONAL 08-24-2015 [facility] HISTORY [facility] VENOUS THROMBOSIS& EMBOLISM Z483 AFTERCARE 08-16-2015 [facility]LLOW[facility] SURGERY FOR NEOPLASM Z4682 ENCOUNTER 08-15-2015 [place] FITTING & MEDICAL ADJUST IMAGING ASS NON-VASCULA R CATHETER E873 ALKALOSIS 08-11-2015 [facility] J90 PLEURAL 08-08-2015 [facility] EFFUSION [facility] NOT HOSPI ELSEWHERE CLASSIFIED R846 ABN 08-08-2015 [place] CYTOLOGICAL [facility] FIND IN HOSPI SPEC RESP ORGN & THOR R0789 OTHER CHEST 08-03-2015 [facility] PAIN N PHYSICIAN SERVI I259 CHRONIC 08-02-2015 [facility] ISCHEMIC PHYSICIANS HEART ASSIST DISEASE UNSPECIFIED R042 HEMOPTYSIS 08-02-2015 [facility] E785 HYPERLIPIDE 07-28-2015 [facility] CELESTINE N PHYSICIAN UNSPECIFIED SERVI J168 PNEUMONIA 07-27-2015 [facility] DUE TO N EMERGENCY OTHER SPEC PHYS INFECTIOUS ORGANISMS J111 FLU D/T 07-08-2015 [facility] UNIDENTIFIE N EMERGENCY D FLU VIRUS PHYS W/OTH RESP MANIF J209 ACUTE 07-08-2015 [facility] BRONCHITIS N EMERGENCY UNSPECIFIED PHYS R05 COUGH 07-08-2015 [facility] N EMERGENCY PHYS M542 CERVICALGIA 05-17-2015 [facility] PHYSICIANS GROUP B370 CANDIDAL 04-13-2015 [place] STOMATITIS [facility] EMERGENCY R296 REPEATED 04-13-2015 [place] [facility] PLANTATION EMERGENCY I422 OTHER 03-31-2015 [facility] HYPERTROPHI [facility] INC CARDIOMYOPA THY J029 ACUTE 03-17-2015 [facility] UNSPECIFIED A04562 OTHER 03-17-2015 [facility] C323 MALIGNANT 03-08-2015 [place] 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 CARTILAGE J181 LOBAR 03-06-2015 [facility] PNEUMONIA N PHYSICIAN UNSPECIFIED SERVI ORGANISM J188 OTHER 03-06-2015 [facility] PNEUMONIA N EMERGENCY UNSPECIFIED PHYS ORGANISM J9690 RESP FAIL 03-06-2015 [facility] W/HYPOXIA/H YPERCAPNIA N289 DISORDER OF 03-06-2015 [facility] UNSPECIFIED M545 LOW BACK 02-22-2015 [facility] PAIN PHYSICIANS GROUP I6503 OCCLUSION & 02-17-2015 [place] [facility] MEDICAL BILATERAL IMAGING ASS VERTEBRAL ART 28898 OTHER 01-24-2015 [facility] CHRONIC PHYSICIANS PAIN GROUP 496 CHRONIC 01-24-2015 [facility] AIRWAY PHYSICIANS OBSTRUCTION GROUP NEC 7244 THORACIC/MANDO 01-24-2015 [facility] MBOSACRAL PHYSICIANS NEURITIS/RA GROUP DICULITIS UNSPEC 1509 MALIGNANT 01-22-2015 [facility] 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HOME ESOPHAGUS MEDICAL UNSPECIFIED EQUIPME SITE 48945 COR 01-17-2015 [facility] 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[facility] UNSPEC INC TYPE VESSEL [place]/FRANCOIS T 86343 OTHER 01-17-2015 [facility] HYPERTROPHI [facility] C INC CARDIOMYOPA THY 35754 OCCLUSION&S 01-17-2015 [facility] TENOS LAR CAROTID ART CONSULTANTS W/O O MENTION INFARCT 5853 CHRONIC 01-17-2015 [facility] KIDNEY LAR DISEASE CONSULTANTS STAGE III O (MODERATE) 7851 PALPITATION 01-17-2015 [facility] S [facility] 62369 OCCL&STENOS 01-13-2015 [facility] MX&BILAT MEDICAL PRECERBRL IMAGING ASS ART W/O INFARCT 7804 DIZZINESS 01-13-2015 [facility] AND [facility] GIDDINESS INC 7859 OTHER 01-03-2015 [facility] SYMPTOMS LAR INVOLVING CONSULTANTS CARDI[facility] O LAR SYSTEM 7802 SYNCOPE AND 12-27-2014 [facility] COLLAPSE LAR CONSULTANTS O V1002 PERS HX MAL 12-20-2014 [facility] NEOPLSM [facility] OTH&UNS INC PART ORL CAV&PHARYNX 2724 OTHER AND 11-23-2014 [facility] UNSPECIFIED LAR CONSULTANTS HYPERLIPIDE O CELESTINE 16669 UNSPEC HTN 11-23-2014 [facility] HEART LAR DISEASE CONSULTANTS WITHOUT O HEART FAIL 50051 OTHER 11-17-2014 [facility] MALAISE AND PHYSICIANS FATIGUE GROUP 82325 SHORTNESS 11-15-2014 [place] OF BREATH RADIOLOGY ASSOCIAT V1254 PERSONAL HX 11-14-2014 [facility] TIA & CI REGIONAL W/O MEDICAL RESIDUAL DEFICITS V5866 LONG-TERM 11-14-2014 [facility] USE OF REGIONAL ASPIRIN MEDICAL 8488 OTHER 11-10-2014 [facility] SPECIFIED PHYSICIANS SITES OF GROUP SPRAINS AND STRAINS 2449 UNSPECIFIED 11-01-2014 [facility] HYPOTHYROID ISM 27700 OBSTRUCTIVE 11-01-2014 [facility] APNEA 4019 UNSPECIFIED 11-01-2014 [facility] HYPERTENSIO N 70465 ESOPHAGEAL 11-01-2014 [facility] V462 DEPENDENCE 11-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[facility] FOR SUPPLEMENTA L OXYGEN 64895 OBSTRUCTIVE 10-31-2014 [facility] CHRONIC PHYSICIANS BRONCHITIS GROUP WITH EXACERBATIO N 4111 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 CONSULTANTS O 82966 RESTLESS 10-27-2014 [facility] LEGS REGIONAL SYNDROME MEDICAL 4139 OTHER AND 10-27-2014 [facility] UNSPECIFIED RADIOLOGY ANGINA ASSOCIAT [place] 84158 CORONARY 10-27-2014 [facility] ATHEROSCLER REGIONAL [place] [facility] CORONARY ARTERY 4370 CEREBRAL 10-27-2014 [facility] ATHEROSCLER RADIOLOGY OSIS ASSOCIAT 7840 HEADACHE 10-27-2014 [facility] ASS[facility]AT 43008 NONSPECIFIC 10-27-2014 [facility] ABNORMAL LAR ELECTROCARD CONSULTANTS IOGRAM O V1089 PERSONAL 10-27-2014 [facility] HISTORY REGIONAL MALIGNANT MEDICAL NEOPLASM OTHER SITE 12680 HYPERTROPHY 10-21-2014 [facility] W/O UR OBST & OTH LUTS V700 ROUTINE 10-21-2014 [facility] MEDICAL [email or web address] [email or web address] FACL 80850 DYSPHONIA 09-13-2014 [facility] PHYSICIANS GROUP 5781 BLOOD IN 08-30-2014 [facility] STOOL PHYSICIANS GROUP 08848 OBSTRUCTIVE 08-26-2014 [facility] CHRONIC RADIOLOGY BRONCHITIS ASSOCIAT WITHOUT EXACERBAT 4919 UNSPECIFIED 08-26-2014 [facility] BRONCHITIS PHYS 490 BRONCHITIS 08-23-2014 [facility] NOT PHYSICIANS SPECIFIED GROUP ACUTE OR CHRONIC 3670 HYPERMETROP 08-04-2014 [facility] 7245 UNSPECIFIED 07-05-2014 [facility] V5869 LONG-TERM 07-05-2014 [facility] (CURRENT) [facility] USE OF HOLDINGS OTHER MEDICATIONS 1419 MALIGNANT 05-09-2014 [place] 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 UNSPECIFIED SITE 1611 MALIGNANT 05-09-2014 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 SUPRAGLOTTI S V153 PERS HX 05-09-2014 [facility] PRESENTING HAZARDS HEALTH V8741 PERSONAL 05-09-2014 [facility]ISTORY OF [facility] ANTINEOPLAS TIC CHEMOTHERAP Y 1619 MALIGNANT 11-12-2013 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[place] LARYNX UNSPECIFIED SITE 1950 MALIGNANT 11-12-2013 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 HEAD FACE AND NECK 80400 OTHER 11-12-2013 [place] [facility] DIS[facility] SERV LARYNX FOUNDATIO 4928 OTHER 11-12-2013 [place] [facility] EMPHYSEMA SERV [facility] V1021 PERSONAL 11-12-2013 [place] [facility] SERV MALIGNANT FOUNDATIO 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LARYNX V676 COMBINED 11-12-2013 [place] [facility] FOLLOW-UP FOUNDATIO EXAMINATION V711 OBSERVATION 11-12-2013 [facility] [place] [place] SUSPECTED MALIGNANT NEOPLASM 5277 DISTURBANCE 11-03-2013 [facility] SALIVARY SECRETION 08378 SPASM OF 11-03-2013 [facility] 7808 GENERALIZED 11-03-2013 [facility] D[facility]YL HYPERHIDROS HOLDINGS IS 4660 ACUTE 08-03-2013 [facility] V0481 NEED 05-21-2013 [facility] PROP[facility]LA[facility]I [facility] C VACCINATION &INOCULATIO N FLU 7962 ELEVATED BP 02-23-2013 [facility], READING WELLNESS PROGRAM COORDINATOR WITHOUT DX [facility] N 193 MALIGNANT 11-02-2012 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[place] THYROID GLAND 4785 OTHER 10-20-2012 [facility] DISEASES OF VOCAL CORDS 26154 OTHER 10-20-2012 [facility] DISEASES OF LUNG NOT ELSEWHERE CLASSIFIED 7224 DEGENERATIO 10-20-2012 [facility] N OF CERVICAL INTERVERTEB RAL DISC 46886 ACUTE 08-14-2012 [facility] [place] ESOPHAGITIS 20728 OTHER 06-22-2012 [facility] MONONEURITI S OF LOWER LIMB 90489 INSOMNIA 05-20-2012 [facility] UNSPECIFIED 99271 DYSPHAGIA 05-20-2012 [facility] UNSPECIFIED [facility] HOLDINGS 88796 OTHER 05-11-2012 [facility] NONSPECIFIC ABNORMAL FINDING OF LUNG FIELD 4779 ALLERGIC 04-03-2012 [facility] RHINITIS CAUSE UNSPECIFIED 95477 HYPERSOMNIA 11-20-2011 [facility], WELLNESS PROGRAM COORDINATOR UNSPECIFIED [facility] HOS 22409 SENSORINEUR 11-05-2011 [facility] ASY[facility]ET[facility] L 7081 IDIOPATHIC 09-26-2011 [facility] URTICARIA 7862 COUGH 09-26-2011 [facility] 01657 OTHER 09-18-2011 [place] [facility] SERV NASAL FOUNDATIO CAVITY AND SINUSES 68173 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[facility] W/INTERMIT CLAUDICAT 20486 OTHER [facility] DISORDER OF ASSOCIAT INTESTINES 30877 HYPERPLASIA 07-12-2011 [facility], PROSTATE WELLNESS PROGRAM COORDINATOR UNS W/O UR [facility] OBST & OTH HOS LUTS 90272 EFFUSION OF 07-12-2011 [facility] LOWER LEG RADIOLOGY JOINT ASSOCIAT 7295 PAIN IN 07-12-2011 [facility], SOFT WELLNESS PROGRAM COORDINATOR TISSUES OF [facility] LIMB HOS 2348 CARCINOMA 07-08-2011 [facility] IN SITU OF OTHER SPECIFIED SITES V7283 OTHER 07-08-2011 [facility], SPECIFIED WELLNESS PROGRAM COORDINATOR PRE-OPERATI [facility] VE HOS EXAMINATION 69117 DEHYDRATION 05-03-2011 [facility] HOSPITAL 81353 MUSCLE 05-03-2011 [facility] WEAKNESS (GENERALIZE D) 33033 CHEST PAIN 05-03-2011 [facility] UNSPECIFIED RADIOLOGY ASSOCIAT V123 PERSONAL 05-03-2011 [facility] HISTORY HOSPITAL DISEASES BLD&BLD-FOR TAMI ORGANS 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 7242 LUMBAGO 03-12-2011 [facility] ULICES 92769 OTHER 03-12-2011 [facility] INJURY OF [place] ULICES OTHER SITES OF TRUNK V551 ATTENTION 12-25-2010 [facility] JR TO [facility] GASTROSTOMY 6828 CELLULITIS 12-21-2010 [facility] OF OTHER SPECIFIED SITE 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 7841 THROAT PAIN 10-16-2010 [facility] PSC 990 EFFECTS OF 07-27-2010 [facility] RADIATION, [facility] UNSPECIFIED 76502 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 91031 DYSPHAGIA 05-29-2010 [facility] V573 CARE 05-29-2010 [facility] USE REHAB SPEECH-LANG [place] 1978 SEC MALIG 05-21-2010 [facility] NEOPLASM [facility]AN OTHER DIGESTIVE ORGANS&SPLE EN 7839 OTH 05-21-2010 [facility] SYMPTOMS [facility]AN CONCERNING NUTRITION METAB&DVLP 2310 CARCINOMA 03-13-2010 [facility] IN SITU OF HOSP MED LARYNX EQUIP & 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 03-13-2010 [facility] L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 ai OX 30 [address] christos E UG e 50 CO MC MP G AN TA Y BL ET NE 00 12 01 2 30 30 CA 67 No Ac XI 18 -0 -0 .0 RL 54 t ti UM 65 3- 3- 00 IS 09 Av ve 04 [address] 03 [address] thomas 40 UG e MG CO MP CA AN PS Y UL E NE 00 12 12 2 30 30 CA 67 No Ac XI 18 -0 -0 .0 RL 54 t ti UM 65 3- 3- 00 IS 09 Av ve 04 [address] 03 [address] thomas 40 UG e MG CO MP CA AN PS Y UL E PI 00 08 11 5 90 30 SO 34 CO Ac LO 11 -0 -2 .0 PE 89 ME ti CA 55 6- 4- 00 RS 36 R ve RP 92 20 20 BR IN 20 10 10 FA ET E 1 HI T HC LY T L 5 DR MG UG TA BL ET 00 08 11 5 12 30 SO 34 CO Ac 59 -0 -2 0. PE 89 ME ti 12 6- 4- 00 RS 35 R ve 22 20 20 0 BR 90 10 10 FA ET 5 HI T LY T DR UG NE 00 09 10 1 30 30 SO 35 No Ac XI 18 -2 -3 .0 PE 32 t ti UM 65 9- 0- 00 RS 71 Av ve [address] 03 10 10 FA la 1 HI bl [address] UG CA PS UL E CE 68 10 10 0 28 7 SO 35 No Ac PH 18 -2 -2 .0 PE 52 t ti AL 00 RS 38 Av ve EX 12 20 20 ai IN 20 10 10 FA la 2 HI bl 50 LY e [address] UG CA PS UL E PI 00 08 10 5 90 30 SO 34 CO Ac LO 11 -0 -1 .0 PE 89 ME ti CA 55 6- 4- 00 RS 36 R ve RP 92 20 20 BR IN 20 10 10 FA ET E 1 HI T HC LY T L 5 DR MG UG TA BL ET 00 08 10 5 12 30 SO 34 CO Ac 59 -0 -1 0. PE 89 ME ti 12 6 RS 35 R ve 22 20 20 0 BR 90 10 10 FA ET 5 HI T LY T DR UG NE 00 09 09 1 30 30 SO 35 No Ac XI 18 -2 -2 .0 PE 32 t ti UM 65 RS 71 Av ve [address] 03 10 10 FA la 1 HI bl [address] UG CA PS UL E [place] 00 09 09 0 24 5 SO [address] 60 -2 -2 0. PE 32 t ti AT 31 RS 70 Av ve IN 48 20 20 0 ai 15 10 10 FA la 10 8 HI bl 0, LY e [address] UN UG IT /M L GARCIA SP LI 50 09 09 0 10 5 SO 35 No Ac DO 38 -2 -2 0. PE 25 t ti CA 30 RS 93 Av ve IN 77 20 20 0 ai E 50 10 10 FA la 2% 4 HI bl LY e SC DR OU UG S SO LN GARCIA 00 09 09 0 30 15 SO 35 No Ac LF 60 -2 -2 .0 PE 25 t ti AM 35 RS 92 Av ve ET 78 20 20 ai HO 12 10 10 FA la XA 8 HI bl ZO LY e LE -T DR MP UG DS TA BL ET 00 09 09 0 23 26 SO 35 No Ac 12 -2 -2 65 PE 25 t ti 10 1- 1- .0 RS 91 Av ve 65 20 20 00 ai 51 10 10 FA la 6 HI bl LY e DR UG PI 00 08 09 5 90 30 SO 34 CO Ac LO 11 -0 -1 .0 PE 89 ME ti CA 55 6- 3- 00 RS 36 R ve RP 92 20 20 BR IN 20 10 10 FA ET E 1 HI T HC LY T L 5 DR MG UG TA BL ET 00 08 09 5 12 30 SO 34 CO Ac 59 -0 -1 0. PE 89 ME ti 12 6- 3- 00 RS 35 R ve 22 20 20 0 BR 90 10 10 FA ET 5 HI T LY T DR UG 00 08 08 0 30 3 SO 34 No Ac 12 -1 -1 0. PE 96 t ti 10 7- 7- 00 RS 80 Av ve 65 20 20 0 ai 51 10 10 FA la 6 HI bl LY e DR UG PI 00 08 08 5 90 30 SO 34 CO Ac LO 11 -0 -0 .0 PE 89 ME ti CA 55 6- 6- 00 RS 36 R ve RP 92 20 20 BR IN 20 10 10 FA ET E 1 HI T HC LY T L 5 DR MG UG TA BL ET 00 08 08 5 12 30 SO 34 CO Ac 59 -0 -0 0. PE 89 ME ti 12 6- 6- 00 RS 35 R ve 22 20 20 0 BR 90 10 10 FA ET 5 HI T LY T DR UG FL 00 08 08 0 5. 5 SO 34 No Ac UC 17 -0 -0 00 PE 87 t ti ON 25 5- 5- 0 RS 61 Av ve AZ 41 20 20 ai OL 21 10 10 FA la E 1 HI bl 15 LY e [address] UG TA BL ET PE 00 07 08 1 59 1 SO 34 No Ac RM 47 -1 -0 .0 PE 73 t ti ET 25 9- 5- 00 RS 87 Av ve HR 24 20 20 ai IN 26 10 10 FA la 7 HI bl 1% LY e LO DR TI UG ON CO 60 07 08 5 50 16 WA 74 CO Ac OM 43 -2 -0 0. L- 79 AB ti ET 20 7- 2- 00 MA 88 HU ve VEGA 60 20 20 0 RT 5 ZI 81 10 10 CO NE 6 PH AM AR OD 6. MA V 25 CY # MG /5 10 15 ML 69 SY RP AM 00 07 07 0 28 9 SO 34 No Ac OX 78 -2 -2 .0 PE 81 t ti -C 11 8- 8- 00 RS 22 Av ve LA 83 20 20 ai V 12 10 10 FA la 50 0 HI bl 0- LY e [address] MG UG TA BL ET CO 00 07 07 1 12 30 WA 74 No Ac OC 78 -2 -2 0. L- 79 t ti HL 15 6- 8- 00 MA 88 Av ve OR 02 20 20 0 RT 4 ai PE 10 10 10 la RA 1 PH bl ZI AR e NE MA CY 10 # MG 10 15 TA 69 B PE 00 07 07 1 59 1 SO 34 No Ac RM 47 -1 -1 .0 PE 73 t ti ET 25 9 9 00 RS 87 Av ve HR 24 20 20 ai IN 26 10 10 FA la 7 HI bl 1% LY e LO DR TI UG ON CI 00 07 07 0 14 7 WA 74 SA Ac CO 37 -0 -0 .0 L- 77 PP ti OF 87 9 00 MA 41 ve LO 09 20 20 RT 8 CH XA 80 10 10 RI CI [address] N AR Y HC MA M L CY 50 # 0 MG 10 15 TA 69 B [place] 00 07 07 0 30 10 [place] [address] 60 -0 -0 0. L- 77 PP ti AT 31 9 00 MA 41 ve IN 48 20 20 0 RT 7 CH 15 10 10 RI [address] 0, AR Y 00 MA M 0 CY UN # IT /M 10 L 15 GARCIA 69 SP RO 00 07 07 0 44 7 WA 22 SA Ac XI 05 -0 -0 0. L- 33 PP ti CE 43 9- 9- 00 MA 29 ve T 68 20 20 0 RT 0 CH 5- 66 10 10 RI [address] 5 AR Y OR MA M AL CY # SO MANDO 10 TI 15 ON 69 NE 55 07 07 0 7. 7 KR 61 No Ac UP 51 -0 -0 00 OG 49 t ti OG 30 1- 2- 0 ER 37 Av ve EN 53 20 20 2 ai 01 10 10 PH la 30 0 AR bl 0 MA e MC CY G/ # ML 14 42 AL 0 00 04 07 5 11 30 WA 74 SA Ac 78 -3 -0 .0 L- 66 PP ti 15 0- 1- 00 MA 40 ve 25 20 20 RT 7 CH 83 [address] AR Y MA M CY # 10 15 69 CO 00 04 06 5 30 5 WA 74 SA Ac OC 78 -3 -2 .0 L- 66 PP ti HL 15 0- 5- 00 MA 40 ve OR 02 20 20 RT 8 CH PE 10 10 10 RI RA [address] ZI AR Y NE MA M CY 10 # MG 10 15 TA 69 B 00 06 06 1 60 30 WA 74 No Ac 47 -1 -1 0. L- 73 t ti 20 4- 5- 00 MA 80 Av ve 38 20 20 0 RT 6 ai 31 10 10 la 6 PH bl AR e MA CY # 10 15 69 CO 00 06 06 1 30 30 WA 74 No Ac ED 05 -1 -1 0. L- 73 t ti NI 43 4- 5- 00 MA 80 Av ve SO 72 20 20 0 RT 4 ai NE 26 10 10 la 5 3 PH bl AR e MG MA /5 CY # ML 10 SO 15 MANDO 69 TI ON FL 00 06 06 3 14 14 WA 74 CO Ac UC 09 -1 -1 0. L- 73 AB ti ON 35 4- 4- 00 MA 39 HU ve AZ 41 20 20 0 RT 8 OL 49 10 10 CO E 5 PH AM 10 AR OD MA V MG CY /M # L GARCIA 10 SP 15 69 00 06 06 5 24 12 WA 74 CO Ac 09 -0 -0 0. L- 72 AB ti 39 7- 7- 00 MA 24 HU ve 63 20 20 0 RT 1 48 10 10 CO 7 PH AM AR OD MA V CY # 10 15 69 AD 00 06 06 3 12 30 WA 74 No Ac VA 17 -0 -0 .0 L- 72 t ti IR 30 3- 7- 00 MA 24 Av ve 71 20 20 RT 4 ai HF 52 10 10 la A 0 PH bl 45 AR e -2 MA 1 CY MC # G IN 10 VEGA 15 LE 69 R CO 00 04 06 5 30 5 WA 74 SA Ac OC 78 -3 -0 .0 L- 66 PP ti HL 15 0- 7- 00 MA 40 ve OR 02 20 20 RT 8 CH PE 10 10 10 RI RA [address] ZI AR Y NE MA M CY 10 # MG 10 15 TA 69 B SI 00 06 06 5 40 30 WA 74 CO Ac LV 59 -0 -0 0. L- 71 AB ti ER 10 1- 2- 00 MA 39 HU ve 81 20 20 0 RT 7 GARCIA 04 10 10 CO LF 6 PH AM AD AR OD IA MA V ZI CY NE # 1% 10 15 CR 69 EA M ON 00 04 06 5 12 30 WA 74 SA Ac DA 78 -3 -0 .0 L- 66 PP ti NS 11 0- 2- 00 MA 40 ve ET 68 20 20 RT 7 CH RO 13 10 10 [address] HC AR Y L MA M 8 CY MG # TA 10 BL 15 ET 69 LI 00 10 08 01 30 30 SO 26 No Ac PI 07 -2 -2 .0 PE 59 t ti TO 10 9- 8- 00 RS 29 Av ve R 15 20 20 ai 40 72 07 08 FA la 3 HI bl MG LY e TA DR BL UG ET 00 08 08 00 20 4 SO 29 No Ac 59 -1 -2 .0 PE 06 t ti 10 3- 8- 00 RS 85 Av ve 34 20 20 ai 90 08 08 FA la 5 HI bl LY e DR UG 00 08 08 00 20 5 SO 29 No Ac 60 -1 -2 .0 PE 05 t ti 35 2- 8- 00 RS 68 Av ve 46 20 20 ai 83 08 08 FA la 2 HI bl LY e DR UG 00 08 08 00 80 10 SO 29 No Ac 78 -1 -2 .0 PE 06 t ti 12 3- 8- 00 RS 84 Av ve 11 20 20 ai 20 08 08 FA la 1 HI bl LY e UG 66 01 08 05 30 30 YO 15 No Ac 79 -2 -2 0. UR 36 t ti 40 8- 8- 00 1 Av ve 00 20 20 0 PH ai 26 08 08 AR la 0 MA bl CY e FL 60 08 08 00 16 7 SO 29 No Ac UT 50 -1 -2 .0 PE 08 t ti IC 50 4- 8- 00 RS 07 Av ve 82 20 20 ai ON 90 08 08 FA la E 1 HI bl CO LY e OP DR 50 UG MC G SP RA Y 15 08 08 00 20 10 SO 29 No Ac 68 -2 -2 .0 PE 14 t ti 60 2- 8- 00 RS 39 Av ve 10 20 20 ai 20 08 08 FA la 5 HI bl LY e DR UG 00 08 08 00 21 6 SO 29 No Ac 55 -1 -2 .0 PE 08 t ti 50 4- 8- 00 RS 08 Av ve 30 20 20 ai 13 08 08 FA la 8 HI bl LY e DR UG GARCIA 00 08 08 00 20 10 SO 29 No Ac LF 60 -1 -2 .0 PE 05 t ti AM 35 2- 8- 00 RS 67 Av ve ET 78 20 20 ai HO 12 08 08 FA la XA 8 HI bl ZO LY e LE -T DR MP UG DS TA BL ET CO 37 07 08 01 56 28 SO 28 No Ac IL 00 -0 -2 .0 PE 78 t ti OS 00 7- 8- 00 RS 89 Av ve EC 45 20 20 ai 50 08 08 FA la OT 4 HI bl C LY e [address] UG MG TA BL ET PE 45 07 08 00 60 1 SO 28 No Ac RM 80 -1 -0 .0 PE 86 t ti ET 20 6- 1- 00 RS 97 Av ve HR 26 20 20 ai IN 93 08 08 FA la 7 HI bl 5% LY e CR DR EA UG M 66 01 08 04 30 30 YO 15 No Ac 79 -2 -0 0. UR 36 t ti 40 8- 1- 00 1 Av ve 00 20 20 0 PH ai 26 08 08 AR la 0 MA bl CY e TH 50 04 07 03 60 30 SO 28 No Ac EO 11 -0 -1 .0 PE 10 t ti PH 10 8- 7- 00 RS 88 Av ve YL 48 20 20 ai LI 20 08 08 FA la NE 2 HI bl LY e ER DR 20 UG 0 MG TA BL ET LI 00 10 07 00 30 30 SO 26 No Ac PI 07 -2 -1 .0 PE 59 t ti TO 10 9 7- RS 29 Av ve R 15 20 20 ai 40 72 07 08 FA la 3 HI bl MG LY e TA DR BL UG ET CO 37 07 07 00 56 28 SO 28 No Ac IL 00 -0 -1 .0 PE 78 t ti OS 00 7- 7- 00 RS 89 Av ve EC 45 20 20 ai 50 08 08 FA la OT 4 HI bl C LY e [address] UG MG TA BL ET 66 01 07 03 30 30 YO 15 No Ac 79 -2 -0 0. UR 36 t ti 40 8- 3- 00 1 Av ve 00 20 20 0 PH ai 26 08 08 AR la 0 MA bl CY e AM 00 06 07 00 30 30 SO 28 No Ac IT 78 -2 -0 .0 PE 69 t ti RI 11 3- 3- 00 RS 84 Av ve PT 48 20 20 ai YL 71 08 08 FA la IN 0 HI bl E LY e HC L DR 25 UG MG TA B TR 65 06 07 00 90 30 SO 28 No Ac AM 16 -2 -0 .0 PE 69 t ti AD 20 3- 3- 00 RS 86 Av ve OL 62 20 20 ai 75 08 08 FA la HC 0 HI bl L LY e 50 DR MG UG TA BL ET CO 37 03 06 02 56 28 SO 28 No Ac IL 00 -2 -1 .0 PE 02 t ti OS 00 7- 2- 00 RS 17 Av ve EC 35 20 20 ai 90 08 08 FA la OT 7 HI bl C LY e [address] UG MG TA BL ET TH 50 04 06 02 60 30 SO 28 No Ac EO 11 -0 -1 .0 PE 10 t ti PH 10 8- 2- 00 RS 88 Av ve YL 48 20 20 ai LI 20 08 08 FA la NE 2 HI bl LY e ER DR 20 UG 0 MG TA BL ET LI 00 02 06 03 30 30 SO 27 No Ac PI 07 -2 -1 .0 PE 67 t ti TO 10 2 00 RS 83 Av ve R 15 20 20 ai 40 72 08 08 FA la 3 HI bl MG LY e TA DR BL UG ET 66 01 06 02 30 30 YO 15 No Ac 79 -2 -0 0. UR 36 t ti 40 8- 5- 00 1 Av ve 00 20 20 0 PH ai 26 08 08 AR la 0 MA bl CY e LI 00 02 05 02 30 30 SO 27 No Ac PI 07 -2 -2 .0 PE 67 t ti TO 10 RS 83 Av ve R 15 20 20 ai 40 72 08 08 FA la 3 HI bl MG LY e TA DR BL UG ET TH 50 04 05 01 60 30 SO 28 No Ac EO 11 -0 -2 .0 PE 10 t ti PH 10 8 RS 88 Av ve YL 48 20 20 ai LI 20 08 08 FA la NE 2 HI bl LY e ER DR 20 UG 0 MG TA BL ET CO 37 03 05 01 56 28 SO 28 No Ac IL 00 -2 -2 .0 PE 02 t ti OS 00 7 2 RS 17 Av ve EC 45 20 20 ai 50 08 08 FA la OT 3 HI bl C LY e [address] UG MG TA BL ET BE 68 04 04 00 20 20 SO 28 No Ac NZ 38 -0 -2 .0 PE 10 t ti ON 20 8 00 RS 89 Av ve AT 24 20 20 ai AT 80 08 08 FA la E 1 HI bl 20 LY e [address] UG CA PS UL E TH 50 04 04 00 60 30 SO 28 No Ac EO 11 -0 -2 .0 PE 10 t ti PH 10 8- 4 00 RS 88 Av ve YL 48 20 20 ai LI 20 08 08 FA la NE 2 HI bl LY e ER DR 20 UG 0 MG TA BL ET 00 04 04 00 21 6 SO 28 No Ac 55 -0 -2 .0 PE 10 t ti 50 8- 4- 00 RS 85 Av ve 30 20 20 ai 13 08 08 FA la 8 HI bl LY e DR UG AZ 00 04 04 00 6. 5 SO 28 No Ac IT 78 -0 -2 00 PE 10 t ti HR 11 8- 4- 0 RS 86 Av ve OM 49 20 20 ai YC 66 08 08 FA la IN 8 HI bl LY e [address] MG UG TA BL ET 63 04 04 00 12 30 SO 28 No Ac 82 -0 -2 0. PE 10 t ti 40 8- 4- 00 RS 87 Av ve 00 20 20 0 ai 81 08 08 FA la 0 HI bl LY e DR UG CO 37 03 04 00 56 28 SO 28 No Ac IL 00 -2 -1 .0 PE 02 t ti OS 00 7- 0- 00 RS 17 Av ve EC 45 20 20 ai 50 08 08 FA la OT 3 HI bl C LY e [address] UG MG TA BL ET LI 00 02 04 01 30 30 SO 27 No Ac PI 07 -2 -1 .0 PE 67 t ti TO 10 1- 0- 00 RS 83 Av ve R 15 20 20 ai 40 72 08 08 FA la 3 HI bl MG LY e TA DR BL UG ET 66 01 04 01 30 30 YO 15 No Ac 79 -2 -0 0. UR 36 t ti 40 8- 7- 00 1 Av ve 00 20 20 0 PH ai 26 08 08 AR la 0 MA bl CY e CO 37 01 03 01 56 28 SO 27 No Ac IL 00 -1 -2 .0 PE 26 t ti OS 00 4- 6- 00 RS 51 Av ve EC 45 20 20 ai 50 08 08 FA la OT 3 HI bl C LY e [address] UG MG TA BL ET LI 00 02 03 00 30 30 SO 27 No Ac PI 07 -2 -2 .0 PE 67 t ti TO 10 1- 6- 00 RS 83 Av ve R 15 20 20 ai 40 72 08 08 FA la 3 HI bl MG LY e TA DR BL UG ET 66 01 03 00 30 30 YO 15 No Ac 79 -2 -2 0. UR 36 t ti 40 8- 6- 00 1 Av ve 00 20 20 0 PH ai 26 08 08 AR la 0 MA bl CY e LI 00 10 03 02 30 30 SO 26 No Ac PI 07 -2 -2 .0 PE 59 t ti TO 10 9- 5- 00 RS 30 Av ve R 15 20 20 ai 40 72 07 08 FA la 3 HI bl MG LY e TA DR CHRITSOS UG ET CO 37 01 03 00 56 28 SO 27 No Ac IL 00 -1 -2 .0 PE 26 t ti OS 00 RS 51 Av ve EC 45 20 20 ai 50 08 08 FA la OT 3 HI bl C LY e [address] UG MG TA BL ET Immunization Name Date Rout CVX Reac Dose Comm Prov Is Faci e tion ent ider Refu lity Give sed n TDAP 04-0 115 FLEM No FLEM 5-20 ING ING VACC 17 COUN COUN INE TY TY 7 HOSP HOSP YRS/ ITAL ITAL > IM PPSV 02-2 33 GAIN No HMH 23 1-20 EY PHYS VACC 17 ICIA INE NS 2 GROU YRS P OR OLDE R FOR SUBQ /IM USE IIV3 01-2 141 BUTL No KISHORE 4-20 ER-V ISLE VACC 14 ISE INE YOSVANY CLIN SPLI IC T VIRU S 0.5 ML DOSA GE IM USE IIV3 09-0 141 REGAN No REGAN 6-20 DOMONIQUE DOMONIQUE VACC 12 CECILIA INE SPLI T VIRU CECILIA S 0.5 ML DOSA GE IM USE IIV3 12-1 141 REGAN No REGAN 2-20 DOMONIQUE DOMONIQUE VACC 11 CECILIA INE SPLI T VIRU CECILIA S 0.5 ML DOSA GE IM USE Procedures Procedure DOS Code Location Performer Comment O2 CONC 1 E1390 NAOMIE AKBAR [facility] 7 HOME HOME 85%/>02 [facility] AT [facility] FLW RATE DRUG TEST G0481 GOMEZ DYER DEFINITV [address] ID INC INC METH P DAY 8-14 DRUG CL DRUG TEST 51680 GOMEZ DYER PRSMV 7 [facility] QUAL DIR INC INC OPTICAL OBS PER DAY O2 CONC 1 E1390 NAOMIE AKBAR [facility] PORT 7 HOME HOME 85%/>02 MEDICAL MEDICAL CONC AT [facility] FLW RATE COLLECTIO 80853 [facility] N VENOUS [address] [place] [address] [facility] [id number] [facility] OBSERVATI [address] [place] [address] HOSPITAL SERVICE PER HOUR INJECTION [id number] [facility] CEFEPIME [address] [place] [address] HYDROCHLO RIDE 500 MG BASIC 62901 [facility] METABOLIC [address] [place] [address] CALCIUM TOTAL THER 23281 [facility] PROPH/DX [address] [place], [place] [address]X [facility] SEQL IV PUSH SBST/DRUG FAC INFUSION J7030 [facility] NORMAL [address] [place] [address] SOLUTION 1000 CC THERAPEUT 74102 [facility] IC [address] [place] [address] TIC/DX INJECTION SUBQ/IM INJECTION J1644 [facility] HEPARIN [address] [place] [address] PER 1000 UNITS OBSERVATI [address] [facility] ON CARE [address] MANAGEMEN T BLOOD 57379 [facility] COUNT [address] [place] [address] AUTO&AUTO DIFRNTL WBC THERAPEUT 15274 [facility] IC [address] [place] [address] IV PUSH EACH NEW DRUG INJ J2930 [facility] METHYLPRD [address] [place] [address] SODIUM SUCC[place] [id number] [facility] INFUSION [address] [place] [address] THERAPY/P [facility]PITAL ROPHYLAXI S /DX 1ST TO 1 HR INJ J2930 [facility] METHYLPRD [address] [place] [address] SODIUM SUCCNAT TO 125 MG INITIAL 13878 [facility] OBSERVATI 7 W N ON HOSPITALI CARE/DAY [address] [place] [address] [facility] TROPONIN [address] [place] [address] [place] BLOOD 62334 [facility] COUNT [address] [place] [address] AUTO&AUTO DIFRNTL WBC INJECTION J1644 [facility] HEPARIN [address] [place] [address] PER 1000 UNITS THERAPEUT 36752 [facility] IC [address] [place] [address] TIC/DX INJECTION SUBQ/IM ECG 23858 [facility] ROUTINE [address] [place] [address] W/LEAST 12 LDS TRCG ONLY W/O I&R INFUSION J7030 [facility] NORMAL [address] [place] [address] SOLUTION [address] [place] [address] [facility] INFUSION [address] [place] [address] PROPHYLAX IS/DX EA HOUR THER 56793 [facility] PROPH/DX [address] [place] [address] NJX [facility] SEQL IV PUSH SBST/DRUG FAC BASIC 11744 [facility] METABOLIC [address] [place] [address] [place] [address] [facility] MAGNESIUM [address] [place] [address] INJECTION [id number] [facility] CEFEPIME [address] [place] [address] HYDROCHLO RIDE 500 MG COLLECTIO 84861 [facility] N VENOUS [address] [place] [address] VENIPUNCT URE SMR PRIM 24260 [facility] SRC [address] [place] [address]/[facility] STAIN BCT FUNGI/ROZINA L CUL BACT 47707 [facility] XCPT [address] [place] [address] BLOOD/STO OL AEROBIC ISOL CULTURE 32550 [facility] BACTERIAL [address] [place] [address] [place] [address] [facility] LACTATE [address] [place] [address] CULTURE 83899 [facility] BACTERIAL [address] [place] [address] AEROBIC W/ID ISOLATES COLLECTIO 16558 [facility] N VENOUS [address] [place] [address] VENIPUNCT URE INJECTION [id number] [facility] CEFEPIME [address] [place] [address] HYDROCHLO RIDE 500 MG COMPREHEN [id number] [facility] SIVE [address] [place] [address] [place] [address] [facility] OSMOLALIT [address] [place] [address] [place] [address] [facility] URINE [address] [place] [address] BLOOD 10935 [facility] GASES ANY [address] [place] [address] COMBINATI ON PH PCO2 PO2 CO2 HCO3 CORTISOL 17623 [facility] TOTAL [address] [place] [address] ECG 97217 [facility] ROUTINE [address] [place] [address] W/LEAST 12 LDS TRCG ONLY W/O I&R INFUSION [id number] [facility] NORMAL [address] [place] [address] [facility] SOLUTION 1000 CC THERAPEUT 97028 [facility] IC [address] [place] [address] PROPHYLAC [facility] TIC/DX INJECTION SUBQ/IM INJECTION [id number] [facility] HEPARIN [address] [place] [address] [facility] PER 1000 UNITS INJECTION J1956 [address] LEVOFLOXA [facility] RENETTA 250 MG BLOOD 14649 [facility] COUNT [address] [place] [address] COMPLETE [facility] AUTO&[place] [address] [facility] TROPONIN [address] [place] [address] QUANTITAT [facility] [place] TOBACCO 61050 [facility] USE [address] [place] [address] CESSATION [facility] INTENSIVE >10 MINUTES URNLS DIP [address] STICK/TAB [facility] LET REAGENT AUTO MICROSCOP Y PRESSURIZ 15564 [facility] ED/NONPRE [address] [place] [address] SSURIZED [facility] INHALATIO N TREATMENT INJ [id number] [facility] METHYLPRD [address] [place] [address] [facility] SODIUM SUCCNAT TO 125 MG ECG 65724 [facility] ROUTINE 7 DESIRE ECG EMERGENCY W/LEAST PHYS 12 LDS I&R ONLY RADIOLOGI 14330 [facility] C EXAM 7 EIDER CHEST 2 RADIOLOGY VIEWS ASSOCIAT FRONTAL&L ATERAL DRUG TEST 40968 [facility] PRSMV 7 [facility] QUAL DIR INC INC OPTICAL OBS PER DAY O2 CONC 1 [id number] NAOMIE [facility] 7 HOME HOME 85%/>02 MEDICAL MEDICAL CONC AT EQUIPME EQUIPME PRSC FLW RATE DRUG TEST 30787 [facility] D[facility]ER PRSMV 7 [facility] QUAL DIR INC INC OPTICAL OBS PER DAY PET 45015 SHER[facility] MANZANARES IMAGING [address] CLINIC ATTENUATI ON WHOLE BODY FLUORODEO A9552 SHERMAN MANZANARES XYGLUCOSE 7 Y MEDICAL F-18 FDG CLINIC DX UP TO 45 MCI SBSQ 69258 [facility] 7 NE HEALTH CARE/DAY MEDICAL 35 G MINUTES INITIAL 72192 [facility] INPATIENT 7 NE HEALTH CONSULT MEDICAL NEW/ESTAB G PT 80 [place] [address] [facility] STENT CRV 7 NE HEALTH CRTD ART MEDICAL EMBOLIC G PROTECJ RADIOLOGI 65031 [facility] C EXAM 7 RADIOLOGY LD IV CHEST 2 VIEWS FRONTAL&L ATERAL ECG 55043 [facility] HEART ROUTINE 7 NE HEALTH ECG MEDICAL W/LEAST G 12 LDS I&R ONLY GROUND A0425 [facility] MILEAGE [address] [place] [address] PER AMBULANCE AMBULANCE STATUTE MILE AMB A0427 [facility] SERVICE [address] [place] [address] ALS AMBULANCE AMBULANCE EMERGENCY TRANSPORT LEVEL 1 DUPLEX 18917 [facility] SCAN 7 EIDER EXTRACRAN RADIOLOGY IAL ART ASSOCIAT COMPL BI STUDY INITIAL 29753 [facility] YUE INPATIENT 7 NE HEALTH CONSULT MEDICAL NEW/ESTAB [place] [address] [place] [address] [facility] ABDOMEN & 7 EIDER PELVIS RADIOLOGY W/[place] [address] [facility] HEAD/BRAI 7 EIDER N W/O RADIOLOGY CONTRAST ASSOCIAT MATERIAL ECG 84480 [facility] [place] [facility] ROUTINE 7 DESIRE ECG EMERGENCY W/LEAST PHYS 12 LDS I&R ONLY RADIOLOGI 95737 [facility] C EXAM 7 EIDER CHEST 2 RADIOLOGY VIEWS ASSOCIAT FRONTAL&L ATERAL O2 CONC 1 E1390 NAOMIE GORDON 7 HOME HOME 85%/>02 MEDICAL MEDICAL CONC AT EQUIPME EQUIPME [facility] [place] SO[place] [address] [facility] TISSUE 7 NECK RADIOLOGY W/CONTRAS ASSOCIAT T MATERIAL LOCM Q9967 [facility] [phone] [place] [address] MG/ML HOSPITAL HOSPITAL IODINE CONCENTRA TION PER ML LOCM Q9967 [facility] [phone] [place] [address] MG/ML [facility] [place] [address] CURRIE CURRIE ABDOMEN & 7 [facility] HOSPITAL W/CONTRAS T MATERIAL CT THORAX 05109 KUSH CURRIE [address] [place] [address] W/[facility] T MATERIAL ADMN SET A7005 NAOMIE AKBAR W/SM VOL 7 HOME HOME NONFILTR MEDICAL MEDICAL NEBULIZR EQUIPME EQUIPME NON-DISPB L DRUG TEST G0481 GOMEZ DYER DEFINITV [address] ID INC INC METH P DAY 8-14 DRUG CL DRUG TEST 65518 GOMEZ DYER PRSMV 7 [facility] QUAL DIR INC INC OPTICAL OBS PER DAY LACTATE 45352 [facility] DEHYDROGE 7 DARRYL DARRYL NASE [facility] COMPREHEN 59807 [facility] SIVE 7 DARRYL DARRYL METABOLIC [facility] PANEL BLOOD 87787 [facility] COUNT 7 DARRYL DARRYL COMPLETE [facility] HOLDINGS AUTO&AUTO DIFRNTL WBC O2 CONC 1 E1390 NAOMIE AKBAR DEL [place] 7 HOME HOME 85%/>02 MEDICAL MEDICAL CONC AT EQUIPME EQUIPME PRSC FLW RATE DRUG TEST G0481 GOMEZ DYER DEFINITV [address] ID INC INC METH P DAY 8-14 DRUG CL DRUG TEST 89903 GOMEZ DYER PRSMV 7 [facility] QUAL DIR INC INC OPTICAL OBS PER DAY DRUG TEST G0480 GOMEZ DYER DEFINITV [address] ID INC INC METH P DAY 1-7 DRUG CL DEBRIDEME 81801 [facility] NT OPEN 7 DESIRE WOUND 20 EMERGENCY SQ CM/< PHYS RADEX 81472 [facility] 7 MINIMUM 3 RADIOLOGY VIEWS ASSOCIAT TDAP 68577 KUSH CURRIE VACCINE [address] [place] [address] YRS/> IM HOSPITAL HOSPITAL REPAIR 02097 [facility] INTERMEDI 7 DESIRE ATE EMERGENCY N/H/F/XTR PHYS NL GENT 2.6-7.5 CM O2 CONC 1 E1390 NAOMIE AKBAR DEL [place] 7 HOME HOME 85%/>02 MEDICAL MEDICAL CONC AT EQUIPME EQUIPME [facility] [place] [address] [facility] LACTATE [address] [place] [address] [place] [address] [facility] FREE [address] [place] [address] HOSPITAL IAADIADOO [address] INFLUENZA [facility]PITAL COLLECTIO 68719 [facility] N VENOUS [address] [place] [address] VENIPUNCT URE CULTURE 64221 [facility] BACTERIAL [address] [place] [address] AEROBIC W/[place] [address] [facility] HEAD/BRAI [address] [place] [address] W/O [facility] [place] [address] [facility] INFUSION [address] [place] [address] HYDRATION [facility] EACH ADDITIONA L HOUR INJECTION J2405 [address] [facility] PER 1 MG GENERAL 94167 [facility] HEALTH [address] [place] [address] HOSPITAL ECG 50762 [facility] ROUTINE [address] [place] [address] HOSPITAL W/LEAST 12 LDS TRCG ONLY W/O I&R DRUG TEST 19851 [facility] PRSMV [address] [place] [address] [facility] CHEMISTRY ANALYZERS INFUSION J7030 [facility] NORMAL [address] [place] [address] SOLUTION 1000 CC DRUG TEST G0480 [facility] DEFINITV [address] [place] [address] [facility] METH P DAY 1-[place] [address] [facility] LIPASE [address] [place] [address] [place] [address] [facility] MAGNESIUM [address] [place] [address] HOSPITAL RADIOLOGI 69705 [facility] C EXAM [address] [place] [address] CHEST 2 [facility] HOSPITAL VIEWS FRONTAL&L ATERAL ECG 48947 [facility] ROUTINE 7 DESIRE ECG EMERGENCY W/LEAST PHYS 12 LDS I&R ONLY URNLS DIP [address] STICK/TAB [facility] HOSPITAL [place] [address] [facility] TROPONIN [address] [place] [address] [facility] [place] [facility] 07176 [facility] PROPH/DX [address] [place] [address] [facility] HOSPITAL PUSH SINGLE/1S T SBST/DRUG DRUG 84717 GOMEZ DYER SCREENING 7 [facility] OPIOIDS INC INC & OPIATE ANALOGS 5/MORE DRUG TEST 73641 GOMEZ DYER PRSMV 7 [facility] QUAL DIR INC INC OPTICAL OBS PER DAY NJX 90453 GOMEZ DYER DX/THER 7 [facility] AGT PVRT INC INC FACET JT LMBR/SAC 1 LEVEL NJX 13282 GOMEZ DYER DX/THER 7 [facility] AGT PVRT INC INC FACET JT LMBR/SAC 2ND LEVEL O2 CONC 1 E1390 NAOMIE AKBAR DEL PORT 7 HOME HOME 85%/>02 MEDICAL MEDICAL CONC AT EQUIPME EQUIPME PRSC FLW RATE PPSV23 15478 [facility] VACCINE 2 7 PHYSICIAN YRS OR S GROUP OLDER FOR SUBQ/IM USE CYANOCOBA 23802 GOMEZ DYER JENNY 7 [facility] VITAMIN INC INC B-12 DRUG TEST 24160 GOMEZ DYER PRSMV 7 [facility] QUAL DIR INC INC OPTICAL OBS PER DAY DRUG TEST G0480 GOMEZ DYER DEFINITV [address] ID INC INC METH P DAY 1-7 DRUG CL DRUG TEST G0481 GOMEZ DYER DEFINITV [address] ID INC INC METH P DAY 8-14 DRUG CL DRUG TEST 83052 GOMEZ DYER PRSMV 7 [facility] QUAL DIR INC INC OPTICAL OBS PER DAY LACTATE 27493 [facility] DEHYDROGE 7 DARRYL DARRYL NASE [facility] COMPREHEN 53253 [facility] D[facility] SIVE 7 DARRYL DARRYL METABOLIC [place] [address] [facility] MAGNESIUM 7 DARRYL [place] [address] [facility] BLOOD/URI 7 DARRYL DARRYL C ACID [facility]INGS HOLDINGS BLOOD 58237 [facility] D[facility] COUNT 7 DARRYL DARRYL COMPLETE HOLDINGS HOLDINGS AUTO&AUTO DIFRNTL WBC HOS BED E0260 NAOMIE AKBAR SEMI-ELEC 6 HOME HOME W/ANY MEDICAL MEDICAL TYPE SIDE EQUIPME EQUIPME RAIL W/MATTRSS DRUG TEST 12-28-201 G0481 GOMEZ DYER DEFINITV [address] ID INC INC METH P DAY 8-14 DRUG CL DRUG TST G0477 GOMEZ DYER PRESUMP;C 6 [facility] PBL BEING INC INC READ DC OPT OBV ONLY O2 CONC 1 E1390 NAOMIE NAOMIE DEL PORT 6 HOME HOME 85%/>02 MEDICAL MEDICAL CONC AT EQUIPME EQUIPME PRS FLW RATE DRUG TST G0477 GOMEZ DYER PRESUMP;C 6 [facility]OS[facility] PBL BEING INC INC READ DC OPT OBV ONLY HOS BED E0260 NAOMIE NAOMIE SEMI-ELEC 6 HOME HOME W/ANY MEDICAL MEDICAL TYPE SIDE EQUIPME EQUIPME RAIL W/MATTRSS O2 CONC 1 E1390 NAOMIE NAOMIE DEL PORT 6 HOME HOME 85%/>02 MEDICAL MEDICAL CONC AT EQUIPME EQUIPME PRS FLW RATE DRUG TEST G0481 GOMEZ DYER DEFINITV [address] ID INC INC METH P DAY 8-14 DRUG CL DRUG TST G0477 GOMEZ DYER PRESUMP;C 6 [facility]OS[facility] PBL BEING INC INC READ DC OPT OBV ONLY HOS BED E0260 NAOMIE NAOMIE SEMI-ELEC 6 HOME HOME W/ANY MEDICAL MEDICAL TYPE SIDE EQUIPME EQUIPME RAIL W/MATTRSS O2 CONC 1 E1390 NAOMIE NAOMIE DEL PORT 6 HOME HOME 85%/>02 MEDICAL MEDICAL CONC AT EQUIPME [facility] FLW RATE DRUG TEST G0481 GOMEZ DYER DEFINITV [address] ID INC INC METH P DAY 8-14 DRUG CL DRUG TST G0477 GOMEZ DYER PRESUMP;C 6 [facility] PBL BEING INC INC READ DC OPT OBV ONLY HOS BED E0260 NAOMIE NAOMIE SEMI-ELEC 6 HOME HOME W/ANY MEDICAL MEDICAL TYPE SIDE EQUIPME EQUIPME RAIL W/MATTRSS O2 CONC 1 E1390 NAOMIE NAOMIE DEL PORT 6 HOME HOME 85%/>02 MEDICAL MEDICAL CONC AT EQUIPME EQUIPME PRS FLW RATE SWALLOWIN 14834 KUSH CURRIE G FUNCJ [address] [place] [address] W/[facility] IOGRAPY/V IDRADIOG MOTION 24003 KUSH CURRIE FLUOR [address] [place] [address] SWLNG FUNCJ C/V REC ADMN SET A7005 NAOMIE AKBAR W/SM VOL 6 HOME HOME NONFILTR MEDICAL MEDICAL NEBULIZR EQUIPME EQUIPME NON-DISPB L BLOOD 44534 [facility] COUNT 6 DARRYL DARRYL COMPLETE [employer] HOLDINGS AUTO&AUTO DIFRNTL WBC NONINVASI 85421 SHERMAN MANZANARES VE 6 Y MEDICAL [facility] EAR/PULSE CLINIC [place] [address] LAB DIEGO LAB DIEGO [id number] [facility] SFERRIN HOLDINGS HOLDINGS COLLECTIO 14649 SHERMAN MANZANARES N VENOUS 6 Y MEDICAL [facility] [place] [address] [facility] D[facility] FOLIC 6 DARRYL DARRYL [place] [address] [facility] IRON 6 DARR[place] [address] [facility] D[facility] ERYTHROPO 6 [facility] IETIN [facility]INGS HOLDINGS LACTATE 79318 [facility] D[facility] DEHYDROGE 6 [facility] NASE LDH [facility] HOLDINGS BLOOD 39430 [facility] D[facility] COUNT 6 [facility] RETICULOC [place] [address] [facility] D[facility] FERRITIN 6 DARRYL DARRYL [facility] CYANOCOBA 20730 [facility] D[facility]GO JENNY 6 [facility] VITAMIN [place] B-12 [place] [address] KUSH GABRIEL [address] [place] [address] DYSFUNCTI ON&/ORAL FUNCJ FEEDING INTERROGA 37741 [facility] BRITANY TISTONEY 6 PHYSICIAN MAT EVALUATIO S GROUP N IN PERSON ILR SYSTEM ECG 80740 GOMEZ DYER ROUTINE 6 [facility] ECG INC INC W/LEAST 12 LDS TRCG ONLY W/O I&[place] [address] KUSH GABRIEL [address] [place] [address] DYSFUNCTI ON&/ORAL FUNCJ FEEDING HOS BED E0260 NAOMIE AKBAR SEMI-ELEC 6 HOME HOME W/ANY MEDICAL MEDICAL TYPE SIDE EQUIPME EQUIPME RAIL W/MATTRSS PRESSURIZ 21772 [facility] ED/NONPRE [address] [place] [address] INHALATIO N TREATMENT CYANOCOBA 87073 [facility] JENNY [address] [place] [address] B-[place] [address] [facility] FERRITIN [address] [place] [address] IRON 21803 [facility] BINDING [address] [place] [address] BASIC 78577 [facility] METABOLIC [address] [place] [address] [place] [address] [facility] IRON [address] [place] [address] [place] [address] [facility] FOLIC [address] [place] [address] SERUM O2 CONC 1 E1390 NAOMIE AKBAR DEL PORT 6 HOME HOME 85%/>02 MEDICAL MEDICAL CONC AT EQUIPME EQUIPME PRSC FLW RATE PRESCRIPT J8499 [facility] ION DRUG [address] [place] [address] [place] [address] [facility] INFUSION [address] [place] [address] [place] AD[place] [address] [facility] INFUSION [address] [place] [address] INITIAL 31 MIN-[address] [place] [address] [facility] HEAD/BRAI [address] [place] [address] W/[facility] HOSPITAL CONTRAST [facility] HOSPITAL G0378 [facility] OBSERVATI [address] [place] [address] ON HOSPITAL [place] [address] [facility] FREE [address] [place] [address] [place] [address] [facility] LACTATE [address] [place] [address] COLLECTIO 68171 [facility] N VENOUS [address] [place] [address] VENIPUNCT URE ECG 47353 [facility] ROUTINE [address] [place] [address] W/LEAST 12 LDS TRCG ONLY W/O I&R GENERAL [address] INFUSION J7030 KUSH CURRIE NORMAL [address] [place] [address] SOLUTION 1000 [place] [address] KUSH CURRIE MAGNESIUM [address] [place] [address] CREATINE 90103 KUSH CURRIE KINASE [address] [place] [address] ECG 56427 [facility] ROUTINE 6 DESIRE PHI ECG EMERGENCY W/LEAST PHYS 12 LDS I&[place] [address] KUSH CURRIE TROPONIN [address] [place] [address] [place] [facility] 11233 [facility] CARE 6 DESIRE PHI ILL/INJUR EMERGENCY ED PHYS PATIENT INIT 30-74 [place] [address] KUSH GABRIEL [address] [place] [address] DYSFUNCTI ON&/[place] [address] KUSH GABRIEL [address] [place] [address] DYSFUNCTI ON&/[place] [address] KUSH GABRIEL [address] [place] [address] DYSFUNCTI ON&[place] [address] CURRIETAMI GABRIEL [address] [place] [address] DYSFUNCTI ON&/[place] [address] KUSH GABRIEL [address] [place] [address] DYSFUNCTI ON&[place] [address] CURRI[address]AMI GABRIEL [address] [place] [address] DYSFUNCTI ON&/ORAL FUNCJ FEEDING MRI 64828 [place] [facility] SPINAL 6 MEDICAL DEMARCUS CANAL IMAGING LUMBAR ASS W/O CONTRAST MATERIAL 3D 53141 [place] J[facility] RENDERING 6 MEDICAL DEMARCUS W/INTERP IMAGING & ASS POSTPROCE SS SUPERVISI ON RADIOLOGI 62198 [place] OPAL C 6 MEDICAL EXAMINATI IMAGING ON EYE ASS DETECT FOREIGN BODY ECG 78182 GOMEZ DYER ROUTINE 6 [facility] ECG INC INC W/LEAST 12 LDS TRCG ONLY W/O I&[place] [address] KUSH GABRIEL [address] [place] [address] DYSFUNCTI ON&/ORAL FUNCJ [place] 84330 RUSSELLMAHSAGILSE MANZANARES IMAGING 6 Y MEDICAL [facility] FOR CT CLINIC ATTENUATI ON WHOLE BODY FLUORODEO A9552 SHERMAN MANZANARES XYGLUCOSE 6 Y MEDICAL [facility] F-18 FDG CLINIC DX UP TO 45 [place] [address] KUSH GABRIEL [address] [place] [address] DYSFUNCTI ON&/ORAL FUNCJ FEEDING HOS BED E0260 NAOMIE AKBAR SEMI-ELEC 6 HOME HOME W/ANY MEDICAL MEDICAL TYPE SIDE EQUIPME EQUIPME RAIL W/[place] [address] KUSH GABRIEL [address] [place] [address] DYSFUNCTI ON&/ORAL FUNCJ FEEDING O2 CONC 1 E1390 NAOMIE AKBAR DEL PORT 6 HOME HOME 85%/>02 MEDICAL MEDICAL CONC AT [place] [address] KUSH GABRIEL [address] [place] [address] DYSFUNCTI ON&/ORAL FUNCJ FEEDING LACTATE 28130 [facility] DIEGO DEHYDROGE 6 DARRYL DARRYL NASE [facility] COMPREHEN 72055 [facility] DIEGO SIVE 6 DARRYL DARRYL METABOLIC [facility] [facility] PANEL BLOOD 91286 LAB [facility] LAB DIEGO COUNT 6 DARRYL DARRYL COMPLETE [employer] HOLDINGS AUTO&[place] [address] KUSH GABRIEL [address] [place] [address] DYSFUNCTI ON&/[place] [address] KUSH GABRIEL [address] [place] [address] DYSFUNCTI ON&[place] [address] KUSH GABREIL [address] [place] [address] DYSFUNCTI ON&/ORAL FUNCJ FEEDING DRUG TST G0477 GOMEZ DYER PRESUMP;C 6 [facility] PBL BEING INC INC READ DC OPT OBV ONLY DRUG TEST G0481 GOMEZ DYER DEFINITV [address] ID INC INC METH P DAY 8-[place] [address] KUSH GABRIEL 6 [facility] DYSFUNCTI ON&/[place] [address] KUSH CURRIE SWALLOWIN 6 [facility] DYSFUNCTI ON&/[place] [address] KUSH GABRIEL 6 [facility] DYSFUNCTI ON&/[place] [address] KUSH GABRIEL 6 [facility]PITAL DYSFUNCTI ON&/ORAL FUNCJ FEEDING DUPLEX 21643 GOMEZ GOMEZ SCAN 6 [facility] EXTRACRAN INC INC IAL ART COMPL BI STUDY HOS BED E0260 NAOMIE AKBAR SEMI-ELEC 6 HOME HOME W/ANY MEDICAL MEDICAL TYPE SIDE EQUIPME EQUIPME RAIL W/MATTRSS O2 CONC 1 E1390 NAOMIE AKBAR DEL PORT 6 HOME HOME 85%/>02 MEDICAL MEDICAL CONC AT EQUIPME EQUIPME PRSC FLW RATE INTERROGA 68209 [facility] BRITANY STERLING 6 PHYSICIAN MAT EVALUATIO S GROUP N IN PERSON ILR SYSTEM ECG 46863 GOMEZ GOMEZ ROUTINE 6 [facility] ECG INC INC W/LEAST 12 LDS TRCG ONLY W/O I&R HOS BED E0260 NAOMIE AKBAR SEMI-ELEC 6 HOME HOME W/ANY MEDICAL MEDICAL TYPE SIDE EQUIPME EQUIPME RAIL W/MATTRSS O2 CONC 1 E1390 NAOMIE AKBAR DEL PORT 6 HOME HOME 85%/>02 MEDICAL MEDICAL CONC AT EQUIPME EQUIPME PRSC FLW RATE DIRECT G0299 ST EDENILSON CASTELLANO RN 6 [facility] HEALTH/ COMMERCIAL CREDIT HEAD COMMERCIAL CREDIT HEAD SPICE SET EA 15 MIN LACTATE 98651 LAB [facility] DIEGO DEHYDROGE 6 DARRYL DARRYL NASE [facility] COMPREHEN 31425 [facility] DIEGO SIVE 6 DARRYL DARRYL METABOLIC [employer] [facility]INGS PANEL BLOOD 15242 LAB DIEGO LAB DIEGO COUNT 6 DARRYL DARRYL COMPLETE [employer] HOLDINGS AUTO&AUTO DIFRNTL WBC DIRECT G0299 ST EDENILSON CASTELLANO RN 6 [facility] COMMERCIAL CREDIT HEAD COMMERCIAL CREDIT HEAD SPICE SET EA [address] [facility] CA[facility]LLAN[facility] RN 6 [facility] SP[facility] EA 15 MIN HOME [place]; S9341 INFUSION INFUSION ENTERAL 6 PARTNERS PARTNERS NUTRITION OF OF [place] GRAVITY; COMFORT ADVISOR ENTRAL F B4152 INFUSION INFUSION NUTRITION 6 PARTNERS PARTNERS CMPL VASQUEZ OF OF [place]ENSE [place] INTACT NUTRNTS INTERROGA 52415 [facility] BRITANY TION 6 PHYSICIAN MAT EVALUATIO S GROUP N IN PERSON ILR SYSTEM DIRECT G0299 ST ED[facility]ILSON CASTELLANO RN 6 [facility] SPICE SET EA 15 MIN HOS BED E0260 NAOMIE AKBAR SEMI-ELEC 6 HOME HOME W/ANY MEDICAL MEDICAL TYPE SIDE EQUIPME EQUIPME RAIL W/MATTRSS O2 CONC 1 E1390 NAOMIE AKBAR DEL PORT 6 HOME HOME 85%/>02 MEDICAL MEDICAL CONC AT EQUIPME EQUIPME PRSC FLW RATE DIRECT G0299 ST ED[facility]ILSON CASTELLANO RN 6 [facility] SPICE [facility] EA 15 MIN COLLECTIO 45144 GOMEZ DYER N VENOUS 6 [facility]OS[facility] BLOOD INC INC VENIPUNCT URE BASIC 56670 GOMEZ DYER METABOLIC 6 [facility]OS[facility] PANEL INC INC CALCIUM TOTAL RADIOLOGI 77823 GOMEZ DYER C 6 [facility] H[facility]OS[facility] EXAMINATI INC INC ON CHEST SINGLE [place]IEW FRONTAL BLOOD 00259 GOMEZ DYER COUNT 6 MEM HOS[facility] MEM HOSP COMPLETE INC INC AUTO&AUTO DIFRNTL WBC DIRECT G0299 ST ED[facility]ILSON CASTELLANO RN 6 [facility] SPICE SET EA 15 MIN SBSQ 87224 [facility] 6 MEDICAL CARE/DAY SERV 25 FOUNDATIO MINUTES N ENTRAL F B4152 INFUSION INFUSION NUTRITION 6 PARTNERS PARTNERS CMPL VASQUEZ [place] [address] [facility] RETROPERI 6 MEDICAL ADR TONEAL SERV REAL TIME FOUNDATIO W/IMAGE N COMPLETE HOME [place]; S9341 INFUSION INFUSION ENTERAL 6 PARTNERS PARTNERS NUTRITION OF OF VIA [place] GRAVITY; COMFORT ADVISOR ADDITIVE B4104 INFUSION INFUSION FOR 6 PARTNERS PARTNERS ENTERAL OF OF FORMULA [place] RADIOLOGI 75911 [place] [facility] C 6 MEDICAL EXAMINATI SERV ON CHEST FOUNDATIO SINGLE N VIEW FRONTAL CYTP 15497 [facility] SLCTV 6 Y OF ОЛЕГ CELL [place] [facility] NT INTERPJ XCPT C/[place] [address] [facility] SURG 6 Y OF ОЛЕГ PATHOLOGY [place] [facility] GROSS&KAMILA ROSCOPIC EXAM THORACENT 13[address] [place] RAISSI ESIS 6 MEDICAL DRI NEEDLE/CA SERV TH PLEURA FOUNDATIO N W/IMAGING SBSQ 81045 [facility] 6 MEDICAL OS CARE/DAY SERV 25 FOUNDATIO MINUTES N SBSQ 15085 [facility] 6 MEDICAL OS CARE/DAY SERV 25 FOUNDATIO MINUTES N SBSQ 33183 [place] [address] MEDICAL OS [place] CARE/DAY SERV 25 FOUNDATIO MINUTES N SBSQ 74668 [facility] 6 MEDICAL OS [place] CARE/DAY SERV 25 FOUNDATIO MINUTES N INITIAL 32354 [facility] 6 DESIRE A RIVAS CARE/DAY PHYSICIAN 70 SERVI MINUTES SWALLOWIN 28431 [place] PEREZ LUGO 6 MEDICAL SCO W/CINERAD SERV IOGRAPY/V FOUNDATIO IDRADIOG N CT THORAX 35820 [place] [facility] 6 MEDICAL W/CONTRAS IMAGING T ASS MATERIAL RADIOLOGI 69870 [place] [facility] C EXAM 6 MEDICAL CHEST 2 IMAGING VIEWS ASS FRONTAL&L ATERAL ECG 07663 [place] Y[facility] ROUTINE 6 MEDICAL NAN ECG SERV W/LEAST FOUNDATIO 12 LDS N I&R ONLY HOSPITAL 05466 [facility] 6 DESIRE IRM DAY PHYSICIAN MANAGEMEN SERVI T > 30 MIN SBSQ 25531 [facility] 6 DESIRE IRM CARE/DAY PHYSICIAN 25 SERVI MINUTES SBSQ 00040 [facility] 6 DESIRE IRM CARE/DAY PHYSICIAN 25 SERVI MINUTES SBSQ [id number] [facility] 6 DESIRE IRM CARE/DAY PHYSICIAN 25 SERVI MINUTES INITIAL 28345 [facility] 6 DESIRE IRM CARE/DAY PHYSICIAN 70 SERVI MINUTES O2 CONC 1 E1390 [place] [address] HOME HOME 85%/>[facility] G0477 GOMEZ DYER PRESUMP;C 6 [facility] INC READ DC OPT OBV ONLY O2 CONC 1 E1390 [place] [address] HOME HOME 85%/>02 MEDICAL MEDICAL CONC AT [facility] FLW RATE DRUG TST G0477 GOMEZ DYER PRESUMP;C 6 [facility] INC READ DC OPT OBV ONLY DRUG TST G0477 GOMEZ DYER PRESUMP;C 6 [facility] INC READ DC OPT OBV ONLY DRUG TEST G0481 GOMEZ DYER DEFINITV [address] ID INC INC METH P DAY 8-14 DRUG CL O2 CONC 1 E1390 [place] [address] HOME HOME 85%/>02 MEDICAL MEDICAL CONC AT [facility] FLW RATE DRUG TST G0477 GOMEZ DYER PRESUMP;C 6 [facility] P[facility] [employer] INC READ DC OPT OBV ONLY INTERROGA 56132 [facility] BRITANY TION 5 CULAR MAT EVALUATIO CONSULTAN N IN TS O PERSON ILR SYSTEM INTERROGA 93662 [facility] BRITANY TION 5 CULAR MAT EVALUATIO CONSULTAN N IN TS O PERSON ILR SYSTEM O2 CONC [address] [facility] 5 HOME HOME 85%/>02 MEDICAL MEDICAL CONC AT EQUIPME [facility] FLW RATE ECG 28876 GOMEZ DYER ROUTINE 5 [facility] ECG INC INC W/LEAST 12 LDS TRCG ONLY W/O I&R ECG 79939 [facility] BRITANY ROUTINE 5 CULAR MAT ECG CONSULTAN W/LEAST TS O 12 LDS I&R ONLY INTERROGA 85036 C[facility] BRITANY TION 5 CULAR MAT EVALUATIO CONSULTAN N IN TS O PERSON ILR SYSTEM O2 CONC 1 E1390 [facility] 5 HOME HOME 85%/>[facility] IN[facility] J0696 GOMEZ HICKMAN 5 [facility] NE SODIUM PER 250 MG THERAPEUT 06112 GOMEZ HICKMAN IC 5 [facility] TIC/DX INJECTION SUBQ/ HOSPITAL 66851 [facility] 5 DESIRE DAY PHYSICIAN MANAGEMEN SERVI T > 30 MIN SBSQ 32042 [facility] 5 Y [facility]ICAL [facility] CARE/DAY CLINIC 35 MINUTES SBSQ 83244 [facility] 5 DESIRE CARE/DAY PHYSICIAN 25 SERVI MINUTES INITIAL 12004 [facility] 5 Y MEDICAL [facility] C[facility]/DAY CLINIC 70 MINUTES INITIAL 35109 [facility] 5 DESIRE CARE/DAY PHYSICIAN 30 SERVI MINUTES RADIOLOGI 71471 [facility] C EXAM 5 NGOZI CHEST 2 RADIOLOGY VIEWS ASSOCIAT FRONTAL&L ATERAL INTERROGA 67461 CARDIOV[facility] BRITANY TION 5 CULAR MAT EVALUATIO CONSULTAN N IN TS O PERSON ILR SYSTEM ECG 98709 GOMEZ DYER ROUTINE 5 [facility] ECG INC INC W/LEAST 12 LDS TRCG ONLY W/O I&R O2 CONC 1 E1390 [facility] 5 HOME HOME 85%/>02 MEDICAL MEDICAL CONC AT [facility]ME [facility] FLW RATE ECG 05098 C[facility] BRITANY ROUTINE 5 CULAR MAT ECG CONSULTAN W/LEAST TS O 12 LDS I&R ONLY LOCM Q9967 GOMEZ DYER [phone] [facility] MG/ML INC INC IODINE CONCENTRA TION PER ML COLLECTIO 76285 GOMEZ DYER N VENOUS 5 [facility] [place] [address] G[facility] D[facility] ANGIOGRAP 5 [facility] HY NECK INC INC W/CONTRAS T/[place] [address] GOMEZ DYER UREA 5 [facility] NITROGEN INC INC QUANTITAT [place] SOFT 72498 [place] [facility] ALL TISSUE 5 MEDICAL NECK W/O IMAGING & ASS W/CONTRAS T MATERIAL CREATININ 23890 GOMEZ DYER E BLOOD 5 [facility] INC [place] PET 08741 [facility] IMAGING 5 Y MEDICAL [facility] FOR [facility] CLINIC ATTENUATI ON WHOLE BODY FLUORODEO A9552 [facility] XYGLUCOSE 5 Y MEDICAL [facility] F-18 FDG CLINIC DX UP TO [address] THORAX 72025 [facility] LA[facility] W/O & 5 REGIONAL GLE W/CONTRAS MEDICAL T BELKIS MATERIAL CT SOFT 78756 [facility] LAUR[facility] TISSUE 5 REGIONAL GLE NECK W/O MEDICAL & [place] [address] [facility] LAURENCE HEAD/BRAI 5 REGIONAL GLE N W/O & MEDICAL W/CONTRAS BELKIS T MATERIAL GENERAL 79627 [facility] HEALTH 5 DARRYL DARRYL PANEL HOLDINGS HOLDINGS CYANOCOBA 53114 [facility] D[facility] JENNY 5 DARRYL DARRYL VITAMIN HOLDINGS HOLDINGS B-12 LACTATE 80933 [facility] DEHYDROGE 5 DARRYL DARRYL [place] [address] [facility] FOLIC 5 DARRYL DARRYL ACID HOLDINGS HOLDINGS SERUM ECG 69433 CARDIOVAS BRITANY ROUTINE 5 CULAR MAT ECG CONSULTAN W/LEAST TS O 12 LDS I&R ONLY ECG 28487 G[facility]Z DYER ROUTINE 5 [facility] ECG INC INC W/LEAST 12 LDS TRCG ONLY W/O I&R O2 CONC 1 E1390 NAOMIE CARRION [place] 5 HOME HOME 85%/>02 MEDICAL MEDICAL CONC AT EQUIPME EQUIPME PRSC FLW RATE ECG 00108 GOMEZ DYER ROUTINE 5 [facility] ECG INC INC W/LEAST 12 LDS TRCG ONLY W/O I&R ECG 45039 CARDIOVAS BRITANY ROUTINE 5 CULAR MAT ECG CONSULTAN W/LEAST TS O 12 LDS I&R ONLY DUPLEX 47368 [place] [facility] ALL SCAN 5 MEDICAL EXTRACRAN IMAGING IAL ART ASS COMPL BI STUDY ECG 06686 CARDIOVAS CARDIOVAS ROUTINE 5 CULAR CULAR ECG CONSULTAN CONSULTAN W/LEAST TS O TS O 12 LDS I&R ONLY ECG 78901 GOMEZ DYER ROUTINE 5 [facility] ECG INC INC W/LEAST 12 LDS TRCG ONLY W/O I&R IMPLANTAT 72622 CARDIOVAS BRITANY ION 5 CULAR MAT PT-ACTIVA CONSULTAN VIVIAN TS O CARDIAC EVENT RECORDER O2 CONC 1 E1390 NAOMIE AKBAR [facility] 5 HOME HOME 85%/>02 [facility] 07821 GOMEZ DYER ROUTINE 5 [facility] ECG INC INC W/LEAST 12 LDS TRCG ONLY W/O I&R ECG 30166 CARDIOVAS BRITANY ROUTINE 5 CULAR MAT ECG CONSULTAN W/LEAST TS O 12 LDS I&R ONLY ECG 87907 CARDIOVAS BRITANY ROUTINE 5 CULAR MAT ECG CONSULTAN W/LEAST TS O 12 LDS W/I&R O2 CONC 1 E1390 [facility] 5 HOME HOME 85%/>02 MEDICAL MEDICAL CONC [facility] [place] [address] GOMEZ DYER THYROXINE 5 [facility] [place] [address] GOMEZ DYER THYROID 5 [facility] STIMULATI [place] [address] GOMEZ DYER FOLIC 5 [facility] ACID INC INC SERUM COLLECTIO 49491 GOMEZ DYER N VENOUS 5 [facility] BLOOD INC INC VENIPUNCT URE COMPREHEN 75841 GOMEZ DYER SIVE 5 [facility] METABOLIC INC INC PANEL CYANOCOBA 67254 GOMEZ DYER JENNY 5 [facility] VITAMIN INC INC B-12 25 78689 GOMEZ DYER HYDROXY 5 [facility] INCLUDES INC INC FRACTIONS IF PERFORMED BLOOD 76788 GOMEZ DYER COUNT 5 [facility] COMPLETE INC INC AUTO&AUTO DIFRNTL WBC BLOOD 95590 MEADOWVIE MEADOWVIE COUNT 5 W W COMPLETE REGIONAL REGIONAL AUTO&AUTO [place] [address] MEADOWVIE MEADOWVIE TROPONIN 5 W W QUANTITAT REGIONAL REGIONAL [place] [facility] CREATINE 45602 MEADOWVIE MEADOWVIE KINASE 5 W W TOTAL REGIONAL REGIONAL MEDICAL MEDICAL COMPREHEN 88957 MEADOWVIE MEADOWVIE SIVE 5 W W METABOLIC REGIONAL REGIONAL PANEL MEDICAL MEDICAL RADIOLOGI 03106 MEADOW[facility]IE MEADOWVIE C 5 W W EXAMINATI REGIONAL REGIONAL ON CHEST MEDICAL MEDICAL SINGLE VIEW FRONTAL INFUSION J7030 MEADOWVIE MEADOWVIE NORMAL 5 W W SALINE REGIONAL REGIONAL SOLUTION MEDICAL [place] [address] [place] [address] MEADOWVIE MEADOWVIE HEAD/BRAI 5 W W N W/O REGIONAL [place] [address] MEADOWVIE MEADOWVIE INFUSION 5 W W HYDRATION REGIONAL REGIONAL INITIAL MEDICAL MEDICAL 31 MIN-1 HOUR ECG 93928 MEADOWVIE MEADOWVIE ROUTINE 5 W W ECG REGIONAL REGIONAL W/LEAST MEDICAL MEDICAL 12 LDS TRCG ONLY W/O I&R ECG 27168 [facility] ROUTINE 5 DESIRE TARAH ECG EMERGENCY W/LEAST PHYS 12 LDS [place] [address] [facility] STENT CRV 5 [facility] KAMILA CRTD ART MEDICAL EMBOLIC G PROTECJ RADIOLOGI 87808 CNTRL TIFFANIE Jimenez EXAM 5 RADIOLOGY CAR CHEST 2 VIEWS FRONTAL&L ATERAL PROCEDURE 0040 [facility] ON [address] [place] [address] SINGLE VESSEL INSERTION 0045 [facility] OF [address] VASCULAR STENT PERCUTANE [address] ANGIOPLAS TY EXTRACRAN IAL VESSELS PROCEDURE [address] VESSEL BIFURCATI ON PERCUTANE [address] INSERTION CAROTID [place] STENT([place] [address] [facility] STENT CRV 5 [facility] CRTD ART MEDICAL EMBOLIC G PROTECJ SLCTV 78736 [facility] CATH 5 NE [facility] CAROTID/I MEDICAL NNOM ART G ANGIO XTRCRANL ART DUPLEX 25387 [facility] SCAN 5 NE [facility] EXTRACRAN MEDICAL IAL ART G COMPL BI STUDY INJECTION J1040 [facility] FRANCISCO 5 PHYSICIAN [facility] METHYLPRE S GROUP DNISOLONE ACETATE 80 MG INJECTION J0696 [facility] FRANC[facility] 5 PHYSICIAN [facility] CEFTRIAXO S GROUP NE SODIUM PER 250 MG THERAPEUT 14947 [facility] IC 5 PHYSICIAN [facility] PROPHYLAC S GROUP TIC/DX INJECTION SUBQ/IM SBSQ 46684 [facility] 5 CULAR MAT CARE/DAY CONSULTAN 25 TS O MINUTES OBSERVATI 56100 [facility] ON CARE 5 [place] [address] [facility] HEAD/BRAI 5 VENANCIO N W/O RADIOLOGY CONTRAST ASSOCIAT MATERIAL DUPLEX 40904 [facility] SCAN 5 VENANCIO EXTRACRAN RADIOLOGY IAL ART ASSOCIAT COMPL BI STUDY SLCTV 62003 CARDIOVAS BRITANY CATH 5 CULAR MAT INTRNL CONSULTAN CAROTID TS O ART ANGIO INTRCRNL [facility] 05337 CARDIOVAS BRITANY CATHJ EA 5 CULAR MAT 1ST ORD CONSULTAN ABDL TS O PEL/LXTR ART BRNCH RADIOLOGI 91528 [facility] C 5 EXAMINATI RADIOLOGY RADIOLOGY ON CHEST ASSOCIAT ASSOCIAT [place] FRONTAL ECG 41250 CARDIOVAS BLACK JAZZMINE ROUTINE 5 CULAR ECG CONSULTAN W/LEAST TS O 12 LDS W/I&R INITIAL 43135 [facility] OBSERVATI 5 VALLEY ABR ON HEART CARE/DAY 70 MINUTES INFUSION J7030 INKITA SHELTON NORMAL 5 W W SALINE REGIONAL REGIONAL SOLUTION MEDICAL MEDICAL 1000 CC INJECTION J3010 NIKITA SHELTON FENTANYL 5 W W CITRATE REGIONAL REGIONAL 0.1 MG MEDICAL MEDICAL CATH PLMT 91313 CARDIOVAS BRITANY L HRT & 5 CULAR MAT ARTS CONSULTAN W/NJX & TS O ANGIO IMG S&I INJECTION J2001 NIKITA HILLWVIE 5 W W LIDOCAINE REGIONAL REGIONAL HCL MEDICAL MEDICAL INTRAVENO US INFUS 10 MG INJECTION J1644 NIKITA HILLWALFONSO HEPARIN 5 W W SODIUM REGIONAL REGIONAL PER 1000 MEDICAL MEDICAL UNITS LOCM Q9967 NIKITA HILLWALFONSO [phone] 5 W W MG/ML REGIONAL REGIONAL IODINE MEDICAL MEDICAL CONCENTRA TION PER ML INJECTION J2250 SERGIOAlizaALFONSO MEAWVIE 5 W W MIDAZOLAM REGIONAL REGIONAL HCL PER MEDICAL MEDICAL 1 MG O2 CONC 1 E1390 [facility] 5 HOME HOME 85%/>02 MEDICAL MEDICAL CONC AT EQUIPME EQUIPKIT [facility] FLW RATE COMPREHEN 93668 [facility] CURRIE SIVE 5 [facility] PANEL BLOOD 75365 CURRIE CURRIE COUNT 5 CO [facility] AUTO&AUTO DIFRNTL WBC BLOOD 18290 GOMEZ GOMEZ COUNT 5 [facility] COMPLETE INC INC AUTO&AUTO DIFRNTL WBC COMPREHEN 01622 GOMEZ DYER SIVE 5 [facility] METABOLIC INC INC PANEL HEMOGLOBI 82813 GOMEZ DYER N 5 [facility] GLYCOSYLA INC INC VIVIAN A1C ADMN SET A7005 YOUR YOUR W/SM VOL 5 PHARMACY PHARMACY [facility] NEBULIZR NON-DISPB L O2 CONC 1 E1390 [facility] 5 HOME HOME 85%/>02 MEDICAL MEDICAL CONC AT EQUIPME EQUIPKIT [facility] FLW RATE COLLECTIO 09582 [facility]USH CURRIE N VENOUS 5 CO [facility] VENIPUNCT URE INJECTION J1030 KUSH CURRIE 5 CO [facility] DNISOLONE ACETATE 40 MG BASIC 20816 KUSH CURRIE METABOLIC 5 CO CO PANEL [facility] CALCIUM TOTAL THERAPEUT 75890 KUSH CURRIE IC 5 CO CO PROPHYLAC [facility] TIC/DX INJECTION SUBQ/IM BLOOD 12737 KUSH CURRIE COUNT 5 CO CO [facility] AUTO&AUTO DIFRNTL WBC RADIOLOGI 03830 [facility] EXAM 5 VENANCIO CHEST 2 RADIOLOGY VIEWS ASSOCIAT FRONTAL&L ATERAL PRESSURIZ 05631 KUSH CURRIE ED/NONPRE 5 CO [facility] T[facility]AT[facility] O2 CONC 1 E1390 [facility] 5 HOME HOME 85%/>02 MEDICAL MEDICAL CONC AT EQUIPME EQUIPME PRSC FLW RATE OPHTH 31365 [facility] 5 GRE GRE XM&EVAL COMPRE NEW PT 1/> VST O2 CONC 1 E1390 [facility] 5 HOME HOME 85%/>02 MEDICAL MEDICAL CONC AT EQUIPME EQUIPME PRSC FLW RATE CREATININ 03617 [facility] E OTHER 5 DARRYL DARRYL SOURCE HOLDINGS HOLDINGS DRUG SCR G0434 [facility] NOT 5 DARRYL DARRYL CHROMATOG HOLDINGS HOLDINGS RAPHIC; ANY NUMBER PT ENC OPIATE G6056 [facility] DRUG AND 5 DARRYL DARRYL METABOLIT HOLDINGS HOLD[place] OF G6040 [facility] ALCOHOL; 5 DARRYL DARRYL ANY HOLDINGS HOLDINGS [place] EX[place] G6042 [facility] AMPHETAMI 5 DARRYL DARRYL NE OR HOLDINGS [place] G6044 [facility] D[facility] COCAINE 5 DARRYL DARRYL OR HOLDINGS HOLD[place] G6031 [facility] D[facility] BENZODIAZ 5 DARRYL DARRYL EPIN[place] G[address] [facility] D[facility] METHADONE 5 DARRYL DARRYL HOLDINGS HOLDINGS GENERAL 45038 [facility] HEALTH 5 DARRYL DARRYL PANEL HOLDINGS HOLDINGS COLLECTIO 89186 CHENCHO Perera VENOUS 5 CLINIC BLOOD VENIPUNCT URE LIPID 01140 [facility] PANEL 5 DARRYL DARRYL HOLDINGS HOLDINGS O2 CONC 1 E1390 [facility] [place] 5 HOME HOME 85%/>02 MEDICAL MEDICAL CONC AT EQUIPME EQUIPME PRSC FLW RATE O2 CONC 1 E1390 NAOMIE [facility] [place] 5 HOME HOME 85%/>02 MEDICAL MEDICAL CONC AT EQUIPME EQUIPME PRSC FLW RATE O2 CONC 1 E1390 NAOMIE AKBAR [place] 4 HOME HOME 85%/>02 MEDICAL MEDICAL CONC AT EQUIPME EQUIPME PRSC FLW RATE ADMN SET A7005 YOUR YOUR W/SM VOL 4 PHARMACY PHARMACY [facility] NEBULIZR NON-DISPB L O2 CONC 1 E1390 NAOMIE [facility] [place] 4 HOME HOME 85%/>02 MEDICAL MEDICAL CONC AT EQUIPME EQUIPME PRSC FLW RATE O2 CONC 1 E1390 NAOMIE [facility] [place] 4 HOME HOME 85%/>02 MEDICAL MEDICAL CONC AT EQUIPME EQUIPME PRSC FLW RATE O2 CONC 1 E1390 NAOMIE [facility] [place] 4 HOME HOME 85%/>02 MEDICAL MEDICAL CONC AT EQUIPME EQUIPME PRSC FLW RATE O2 CONC 1 E1390 NAOMIE [facility] [place] 4 HOME HOME 85%/>02 MEDICAL MEDICAL CONC AT EQUIPME EQUIPME [place] SOFT 81644 [place] OSCAR KWA TISSUE 4 MEDICAL NECK SERV W/CONTRAS FOUNDATIO T MATERIAL CT THORAX 68971 [place] ROGERS JONATAN 4 MEDICAL W/CONTRAS SERV T FOUNDATIO MATERIAL LOCM Q9967 [facility] [phone] 4 Y Y MG/ML HOSPITAL H[facility]PITAL IODINE CONCENTRA TION PER ML BLOOD 64084 [facility] COUNT 4 DARRYL DARRYL COMPLETE HOLDINGS HOLDINGS AUTOMATED COMPREHEN 33459 [facility] SIVE 4 DARRYL DARRYL METABOLIC [place] [address] [facility] D[facility] PROSTATE 4 DARRYL DARRYL SPECIFIC [place] [address] [facility] D[facility] PROSTATE 4 DARRYL DARRYL SPECIFIC HOLDINGS HOLDINGS ANTIGEN FREE COLLECTIO 78216 CHENCHO KIRK N VENOUS 4 CLINIC [place] [address] [facility] THYROID 4 DARRYL DARRYL STIMULATI HOLDINGS [place] [address] [facility] D[facility] FREE 4 DARRYL DARRYL [place] [address] [facility] D[facility] TRIIODOTH 4 DARRYL DARRYL YRONINE HOLDINGS HOLDINGS T3 TOTAL TT3 O2 CONC 1 E1390 NAOMIE AKBAR [place] 4 HOME HOME 85%/>02 MEDICAL MEDICAL CONC AT EQUIPME EQUIPME PRSC FLW RATE O2 CONC 1 E1390 NAOMIE [facility] [place] 4 HOME HOME 85%/>02 MEDICAL MEDICAL CONC AT EQUIPME EQUIPME PRSC FLW RATE O2 CONC 1 E1390 NAOMIE [facility] [place] 4 HOME HOME 85%/>02 MEDICAL MEDICAL CONC AT EQUIPME EQUIPME PRSC FLW RATE ADMN SET A7005 YOUR YOUR W/SM VOL 4 PHARMACY PHARMACY NONFILTR [facility] NEBULIZR NON-DISPB L CREATINE 23771 [facility] KINASE 4 OF DARRYL TOTAL DARRYL HOLDINGS HOLDINGS COMPREHEN 88738 [facility] D[facility] SIVE 4 OF DARRYL METABOLIC [place] [address] [facility] D[facility] THYROID 4 OF DARRYL STIMULATI DARRYL HOLDINGS NG HOLDINGS HORMONE TSH COLLECTIO 04240 CHENCHO AMADO N VENOUS 4 CLINIC [facility] [place] BLOOD VENIPUNCT URE BLOOD 06161 [facility] COUNT 4 OF DARRYL COMPLETE DARRYL HOLDINGS AUTOMATED HOLDINGS LIPID 52262 [facility] D[facility] PANEL 4 OF DARRYL DARRYL HOLDINGS HOLDINGS O2 CONC 1 E1390 NAOMIE AKBAR [place] 4 HOME HOME 85%/>02 MEDICAL MEDICAL CONC AT EQUIPME EQUIPME PRSC FLW RATE O2 CONC 1 E1390 NAOMIE [facility] [place] 4 HOME HOME 85%/>02 MEDICAL MEDICAL CONC AT EQUIPME EQUIPME PRSC FLW RATE O2 CONC 1 E1390 NAOMIE [facility]ION [place] 4 HOME HOME 85%/>02 MEDICAL MEDICAL CONC AT EQUIPME EQUIPME PRSC FLW RATE ADMN SET A7003 YOUR YOUR SM VOL 4 PHARMACY PHARMACY [employer] [facility] PNEUMAT NEBULIZR DISPBL IM ADM 19909 CHEN[facility] HUTCHINS- PRQ ID 4 CLINIC [facility] [place] SUBQ/IM NJXS 1 VACCINE IIV3 19833 CHENCHO HUTCHINS- VACCINE 4 CLIN[facility] [place] SPLIT VIRUS 0.5 ML DOSAGE IM USE O2 CONC 1 E1390 NAOMIE NAOMIE DEL [place] 4 HOME HOME 85%/>02 MEDICAL MEDICAL CONC AT EQUIPME EQUIPME PRSC FLW RATE ADMN SET A7003 YOUR YOUR SM VOL 3 PHARMACY PHARMACY [employer] [facility] PNEUMAT NEBULIZR DISPBL O2 CONC 1 E1390 NAOMIE NAOMIE [place] 3 HOME HOME 85%/>02 MEDICAL MEDICAL CONC AT EQUIPME EQUIPME PRSC FLW RATE O2 CONC 1 E1390 NAOMIE NAOMIE [facility] 3 HOME HOME 85%/>02 MEDICAL MEDICAL CONC AT EQUIPME EQUIPME PRSC FLW RATE ADMN SET A7003 YOUR YOUR SM VOL 3 PHARMACY PHARMACY [employer] [facility] PNEUMAT NEBULIZR DISPBL LIPID 70744 [facility] PANEL 3 DARRYL DARRYL HOLDINGS HOLDINGS DUPLEX 93473 [employer] SCAN 3 WELLNESS PROGRAM COORDINATOR WELLNESS PROGRAM COORDINATOR EXTRACRAN JESSIE ROMAN IAL ART CO HOS CO HOS COMPL BI STUDY GENERAL 92601 LAB [facility] HEALTH 3 DARRYL DARRYL PANEL HOLDINGS HOLDINGS O2 CONC 1 E1390 [facility] 3 HOME HOME 85%/>02 MEDICAL MEDICAL CONC AT EQUIPME EQUIPME PRSC FLW RATE ADMN SET A7003 YOUR YOUR SM VOL 3 PHARMACY PHARMACY [employer] [facility] PNEUMAT NEBULIZR DISPBL O2 CONC 1 E1390 NAOMIE NAOMIE [place] 3 HOME HOME 85%/>02 MEDICAL MEDICAL CONC AT EQUIPME EQUIPME PRSC FLW RATE ADMN SET A7003 YOUR YOUR SM VOL 3 PHARMACY PHARMACY [employer] [facility] PNEUMAT NEBULIZR DISPBL O2 CONC 1 E1390 NAOMIE NAOMIE [place] 3 HOME HOME 85%/>02 MEDICAL MEDICAL CONC AT EQUIP[place] [address] LAB [facility] THYROID 3 OF AMERIC STIMULATI DARRYL HOLDING NG HOLDINGS HORMONE TSH COMPREHEN 41576 [facility] D[facility] SIVE 3 OF AMERIC METABOLIC DARRYL HOLDING PANEL HOLDINGS CREATINE 53298 [facility] D[facility] KINASE 3 OF AMERIC TOTAL DARRYL HOLDING HOLDINGS LIPID 52271 [facility] D[facility] PANEL 3 OF AMERIC DARRYL HOLDING HOLDINGS BLOOD 92052 [facility] D[facility] COUNT 3 OF AMERIC COMPLETE DARRYL HOLDING AUTOMATED HOLDINGS ADMN SET A7003 YOUR YOUR SM VOL 3 PHARMACY PHARMACY [employer] [facility] PNEUMAT NEBULIZR DISPBL O2 CONC 1 E1390 [facility]IE [facility] 3 HOME HOME 85%/>02 MEDICAL MEDICAL CONC AT EQUIPME EQUIPME PRSC FLW RATE ADMN SET A7003 YOUR YOUR SM VOL 3 PHARMACY PHARMACY [employer] [facility] PNEUMAT NEBULIZR DISPBL LOCM Q9967 [facility] 300-399 3 MG/ML DIAGNOSTI DIAGNOSTI IODINE C CENTER, C CENTER, CONCENTRA TION PER ML CT SOFT 74342 [facility] TISSUE 3 NECK DIAGNOSTI DIAGNOSTI W/CONTRAS C CENTER, C CENTER, T MATERIAL CT THORAX 81191 [facility] 3 W/CONTRAS DIAGNOSTI DIAGNOSTI T C CENTER, C CENTER, MATERIAL O2 CONC 1 E1390 NAOMIE AKBAR [place] [address] HOME HOME 85%/>02 MEDICAL MEDICAL CONC AT EQUIPME EQUIPME PRSC FLW RATE ADMN SET A7003 YOUR YOUR SM VOL 3 PHARMACY PHARMACY NON[employer] PNEUMAT NEBULIZR DISPBL O2 CONC 1 E1390 [facility]IE [facility] 3 HOME HOME 85%/>02 MEDICAL MEDICAL CONC AT EQUIPME EQUIPME PRSC FLW RATE ADMN SET A7003 YOUR YOUR SM VOL 3 PHARMACY PHARMACY [employer] [facility] PNEUMAT NEBULIZR DISPBL O2 CONC 1 E1390 [facility]IE [facility] 3 HOME HOME 85%/>02 MEDICAL MEDICAL CONC AT EQUIPME EQUIPME PRSC FLW RATE ADMN SET A7003 YOUR YOUR SM VOL 3 PHARMACY PHARMACY NONFILTR [facility] PNEUMAT NEBULIZR DISPBL O2 CONC 1 E1390 NAOMIE CARRION [place] 3 HOME HOME 85%/>02 MEDICAL MEDICAL CONC AT EQUIPME [facility]QU[facility]ME [facility] NEBULIZER E0570 NAOMIE AKBAR WITH 3 HOME HOME COMPRESSO MEDICAL MEDICAL R EQUIPME EQUIPME BLOOD 79622 LAB [facility]IE[facility] COUNT 3 DARRYL DARRYL COMPLETE HOLDINGS HOLDINGS AUTO&AUTO DIFRNTL WBC ADMN SET A7003 YOUR YOUR SM VOL 3 PHARMACY PHARMACY NONFILTR [employer] [place] [address] LAB DIEGO LAB DIE[facility] FOLIC 3 DARRYL DARRYL ACID HOLDINGS HOLDINGS SERUM CYANOCOBA 85353 LAB DIE[facility] LAB DIE[facility] JENNY 3 DARRYL DARRYL VITAMIN HOLDINGS HOLDINGS B-12 ADMN SET A7003 YOUR YOUR SM VOL 3 PHARMACY PHARMACY [employer] PNEUMAT NEBULIZR DISPBL LIPID 72667 LAB [facility] LAB DIEGO PANEL 3 DARRYL DARRYL HOLDINGS HOLDINGS COMPREHEN 14798 LAB [facility] LAB DIEGO SIVE 3 DARRYL DARRYL METABOLIC [place] [address] LAB DIEGO LAB D[facility] THYROID 3 DARRYL DARRYL STIMULATI HOLDINGS HOLDINGS NG HORMONE TSH CT THORAX 74597 [facility] W/O 3 Y Y [facility] MATERIAL O2 CONC 1 E1390 NAOMIE CARRION [place] 3 HOME HOME 85%/>02 MEDICAL MEDICAL CONC AT EQUIPME EQUIPME PRSC FLW RATE ADMN SET A7003 YOUR YOUR SM VOL 2 PHARMACY PHARMACY [employer] PNEUMAT NEBULIZR DISPBL O2 CONC 1 E1390 NAOMIE CARRION [place] 2 HOME HOME 85%/>02 MEDICAL MEDICAL CONC AT EQUIPME EQUIPME PRSC [place]W [place] SOFT 11414 RHONDA KHAN TISSUE 2 NECK W/CONTRAS T MATERIAL CT THORAX 25382 ATTILI ATTILI 2 ANI ANI W/CONTRAS T MATERIAL ADMN SET A7003 YOUR YOUR SM VOL 2 PHARMACY PHARMACY [employer] PNEUMAT NEBULIZR DISPBL O2 CONC 1 E1390 NAOMIE NAOMIE DEL [place] 2 HOME HOME 85%/>02 MEDICAL MEDICAL CONC AT EQUIPME EQUIPME PRSC FLW RATE ADMN SET A7003 YOUR YOUR SM VOL 2 PHARMACY [facility] NEBULIZR DISPBL O2 CONC 1 E1390 NAOMIE NAOMIE [place] 2 HOME HOME 85%/>02 MEDICAL MEDICAL CONC AT EQUIPME EQUIPME PRSC FLW RATE ADMN SET A7003 YOUR YOUR SM VOL 2 PHARMACY PHARMACY [facility] PNEUMAT NEBULIZR DISPBL IIV3 [id number] MARGO ARAGON VACCINE 2 Apr SPLIT VIRUS 0.5 ML DOSAGE IM USE IM ADM 43091 MARGO ARAGON PRQ ID 2 Apr SUBQ/IM NJXS 1 VACCINE O2 CONC 1 E1390 NAOMIEAN AKBAR [facility] PORT 2 HOME HOME 85%/>02 MEDICAL MEDICAL CONC AT EQUIPME EQUIPME PRSC FLW RATE ADMN SET A7003 YOUR YOUR SM VOL 2 PHARMACY PHARMACY [facility] [employer] [facility] PNEUMAT NEBULIZR DISPBL O2 CONC 1 E1390 NAOMIEAN ARTEAGARELL [facility] PORT 2 HOME HOME 85%/>02 MEDICAL MEDICAL CONC AT EQUIPME EQUIPME PRSC FLW RATE ADMN SET A7003 YOUR YOUR SM VOL 2 PHARMACY PHARMACY BANNERNetero [employer] [facility] PNEUMAT NEBULIZR DISPBL POLYSOM 99487 HOOS R HOOS R 6/>YRS 2 SLEEP 4/> ADDL YESENIA ATTND COMPRE 17113 [facility] AUDIOMETR 2 Y Y Y [facility] THRESHOLD EVAL SP RECOGNIJ TYMPANOME 73970 [facility] 2 Y Y [facility] O2 CONC 1 E1390 NAOMIE NAOMIE DEL [place] 2 HOME HOME 85%/>02 MEDICAL MEDICAL CONC AT EQUIPME EQUIPME PRSC FLW RATE ADMN SET A7003 YOUR YOUR SM VOL 2 PHARMACY PHARMACY [facility] P[facility]UM[facility] NEBULIZR DISPBL O2 CONC 1 E1390 NAOMIE NAOMIE [place] 2 HOME HOME 85%/>02 MEDICAL MEDICAL CONC AT EQUIPME EQUIPMS PRSC FLW RATE ADMN SET A7003 YOUR YOUR SM VOL 2 PHARMACY PHARMACY [facility] PNEUMAT NEBULIZR DISPBL LOCM Q9967 [facility] [phone] Y Y MG/ML [facility] IODINE CONCENTRA TION PER ML CT SOFT 51920 [facility] TISSUE 2 Y Y NECK [facility] W/CONTRAS T MATERIAL CT THORAX 82544 [facility] 2 Y Y W/CONTRAS [facility] T MATERIAL CREATININ 77028 [facility] E BLOOD 2 Y Y [facility] O2 CONC 1 E1390 [facility] 2 HOME HOME 85%/>02 [facility] PRS FLW RATE ADMN SET A7003 YOUR YOUR SM VOL 2 PHARMACY PHARMAC[facility] [facility] PNEUMAT NEBULIZR DISPBL O2 CONC 1 E1390 [facility] 85%/>02 [facility] PRSC FLW RATE ADMN SET A7003 YOUR YOUR SM VOL 2 PHARMACY PHARMACY [facility] PNEUMAT NEBULIZR DISPBL LOCM Q9967 [employer], [phone] WELLNESS PROGRAM COORDINATOR WELLNESS PROGRAM COORDINATOR MG/ML JESSIE RMOAN IODINE CO HOS CO HOS CONCENTRA TION PER ML CTA ABDL 17312 [employer], AORTA&BI 2 WELLNESS PROGRAM COORDINATOR WELLNESS PROGRAM COORDINATOR ILIOFEM JESSIE BURRELLS W/CONTRAS CO HOS CO HOS T&POSTP CREATININ 33080 [employer], E BLOOD 2 WELLNESS PROGRAM COORDINATOR WELLNESS PROGRAM COORDINATOR [place] [address] [employer], UREA 2 WELLNESS PROGRAM COORDINATOR WELLNESS PROGRAM COORDINATOR NITROGEN JESSIE JESSIE QUANTITAT [facility] [place] O2 CONC 1 E1390 [facility] HOME HOME 85%/>02 MEDICAL MEDICAL CONC AT EQUIPME EQUIPME PRSC FLW RATE ADMN SET A7003 YOUR YOUR SM VOL 2 PHARMACY PHARMACY [employer] [facility] LLC PNEUMAT NEBULIZR DISPBL O2 CONC 1 E1390 NAOMIE [place] 2 HOME HOME 85%/>02 MEDICAL MEDICAL CONC AT EQUIPME EQUIPME PRSC FLW RATE PILLW A7033 YOUR YOUR NASL 2 PHARMACY PHARMACY [facility] TYPE INTERFCE REPL ONLY PAIR EVAL 81932 [facility] SPEECH 2 Y Y [facility] VOICE COMMUNJ &/CNA Y PROC BASIC 37694 JESSIE ROMAN METABOLIC 2 CO CO [facility] CALCIUM TOTAL BLOOD 53504 JESSIE ROMAN COUNT 2 CO CO [facility] AUTO&AUTO DIFRNTL WBC RADIOLOGI 91954 SONOITAONESIMO WELDON C EXAM 2 NGOZI CHEST 2 RADIOLOGY VIEWS ASSOCIAT FRONTAL&L ATERAL RADIOLOGI 12813 JESSIE Jimenez 2 CO CO [facility] ON NECK SOFT TISSUE ADMN SET A7003 YOUR YOUR SM VOL 1 PHARMACY PHARMACY NONFILTR [employer] PNEUMAT NEBULIZR DISPBL IM ADM 41027 MARGO ARAGON PRQ ID 1 Apr SUBQ/IM NJXS 1 VACCINE IIV3 10254 MARGO LEESN VACCINE 1 Apr SPLIT VIRUS 0.5 ML DOSAGE IM USE CT SOFT 70793 [facility] TISSUE 1 Y Y NECK [facility] W[facility] MATERIAL [facility] THORAX 22255 [facility] 1 Y Y W/[facility] T MATERIAL ADMN SET A7003 YOUR YOUR SM VOL 1 PHARMACY PHARMACY [facility] [facility] PNEUMAT NEBULIZR DISPBL LOCM Q9967 [facility] [phone] 1 Y Y MG/ML [facility] IODINE CONCENTRA TION PER ML VISUAL 99406 ROCCO ROCCO FIELD XM 1 GRE GRE UNI/BI W/INTERP EXTENDED EXAM RADEX 01388 JESSIE ROMAN SPINE 1 CO CO [facility] AL MINIMUM 4 VIEWS ADMN SET A7003 YOUR YOUR SM VOL 1 [facility] [employer] [facility] PNEUMAT NEBULIZR DISPBL RADIOLOGI 34210 JESSIE ROMAN C EXAM 1 CO CO CHEST 2 [facility] VIEWS FRONTAL&L ATERAL PRESSURIZ 48309 CHENCHO NABEELTrever ED/NONPRE 1 CLINIC CECILIA SSURIZED PSC INHALATIO N TREATMENT COLLECTIO 26434 [facility] N VENOUS 1 Y Y BLOOD [facility] [address] [facility] FREE 1 Y Y THYROXINE [facility] GENERAL 31281 [facility] 1 Y Y PANEL [facility] COMPREH 94886 MEADOWVIE MEADOWVIE SIVE 1 W W [facility]ABOLIC [facility] [place] [address] MEADOWVIE MEADOWVIE FREE 1 W W THYROXINE [facility] [address] MEADOWVIE MEADOWVIE THYROID 1 W W STIMULATI REGIONAL REGIONAL NG MEDICAL MEDICAL HORMONE TSH COLLECTIO 22288 MEADOWVIE MEADOWVIE N VENOUS 1 W W BLOOD [facility]AL VENIPUNCT MEDICAL MEDICAL URE BLOOD 49223 MEADOWVIE MEADOWVIE COUNT 1 W W COMPLETE REGIONAL REGIONAL AUTOMATED MEDICAL MEDICAL LARYNGOSC 59408 [place] AOJACKSON OCTAVIANO OPY 1 MEDICAL FLEXIBLE SERV DIAGNOSTI FOUNDATIO C PET 74468 [facility] 1 [facility] [address] RADIOLOGY ATTENUATI ASSOCIAT [place] [address] JESSIE ROMAN THYROID 1 [facility] [place] [address] JESSIE ROMAN THYROXINE 1 CO [place] [address] [facility] THYROID 1 [place] [facility] [place] [facility] STIMULATI NG HORMONE TSH LARYNGOSC 92528 [place] SANT[place] OPY 1 MEDICAL CECILIA FLEXIBLE SERV DIAGNOSTI FOUNDATIO C COLLECTIO 14799 [facility] N VENOUS 1 Y Y BLOOD [facility] [address] [facility] 1 Y Y NITROGEN [facility] QUANTITAT [place] SOFT 65722 [place] ESCOTT TISSUE 1 MEDICAL EDW NECK SERV W/CONTRAS FOUNDATIO T MATERIAL CT THORAX 84701 [facility] 1 Y Y W/[facility] T MATERIAL CREATININ 40635 [facility] E BLOOD 1 Y Y [facility] COMPREHEN 62615 NIKITA SHELTON SIVE 1 W W METABOLIC [facility]AL [facility]AL PANEL MEDICAL MEDICAL COLLECTIO 23183 NIKITA SHELTON N VENOUS 1 W W BLOOD [facility] REGIONAL [place] [address] NIKITA SHELTON THYROID 1 W W STIMULATI REGIONAL REGIONAL [place] [address] NIKITA HILLWALFONSO FREE 1 W W THYROXINE [facility] MEDICAL MEDICAL BLOOD 00983 NIKITA SHELTON COUNT 1 W W COMPLETE [facility] [place] [address] KUSH CURRIE SWALLOWIN 1 [facility] DYSFUNCTI ON&/[place] [address] KUSH CURRIE SWALLOWIN 1 [facility] DYSFUNCTI ON&/[place] [address] KUSH CURRIE SWALLOWIN 1 [facility] DYSFUNCTI ON&/[place] [address] [facility] THYROID 1 [facility] INC STIMULATI NG HORMONE TSH COLLECTIO [address] [facility] N VENOUS 1 [place] [address] KUSH CURRIE SWALLOWIN 1 [facility] DYSFUNCTI ON&/[place] [address] KUSH CURRIE SWALLOWIN 1 [facility] DYSFUNCTI ON&/[place] [address] [facility] THYROID 1 [facility] [place] [address] KUSH CURRIE SWALLOWIN 1 [facility] DYSFUNCTI ON&/[place] [address] KUSH CURRIE SWALLOWIN 1 [facility] DYSFUNCTI ON&/ORAL FUNCJ FEEDING LARYNGOSC 55053 TIFFANIE FROST OPY 1 MEDICAL CECILIA [place] [address] KUSH CURRIE SWALLOWIN 0 [facility] DYSFUNCTI ON&/[place] [address] KUSH CURRIE SWALLOWIN 0 [facility] DYSFUNCTI ON&/ORAL FUNCJ FEEDING COLLECTIO 28482 NIKITA SHELTON N VENOUS 0 W W BLOOD [facility] [place] [address] NIKITA MEADOWALFONSO THYROID 0 W W STIMULATI [facility] [place] [address] NIKITA HILLWALFONSO FREE 0 W W THYROXINE [facility] MEDICAL MEDICAL COMPREHEN 26117 NIKITA SHELTON SIVE 0 W W METABOLIC [facility] PANEL MEDICAL MEDICAL BLOOD 35214 NIKITA SHELTON COUNT 0 W W COMPLETE [facility] [place] [address] KUSH CURRIE SWALLOWIN 0 [facility] DYSFUNCTI ON&/[place] [address] KUSH CURRIE SWALLOWIN 0 [facility] DYSFUNCTI ON&/[place] [address] KUSH CURRIE SWALLOWIN 0 [facility] DYSFUNCTI ON&/[place] [address] KUSH CURRIE SWALLOWIN 0 [facility] DYSFUNCTI ON&[place] [address] KUSH CURRIE SWALLOWIN 0 [facility] DYSFUNCTI ON&/[place] [address] KUSH CURRIE SWALLOWIN 0 [facility] DYSFUNCTI ON&/ORAL FUNCJ FEEDING GAUZE A6402 KUSH CURRIE NON-IMPRE 0 CO HOSP CO HOSP G STERL MED EQUIP MED EQUIP 16 SQ/< & & W/O ADHES BORDR ENTERAL B4034 KUSH CURRIE FEEDING 0 CO HOSP NM HOSP SUPPLY MED EQUIP MED EQUIP KIT; & & SYRINGE FED PER DAY TAPE A4450 KUSH CURRIE NON-WATER 0 CO HOSP CO HOSP PROOF PER MED EQUIP MED EQUIP 18 & & [place] [address] KUSH CRURIE SWALLOWIN 0 [facility] DYSFUNCTI ON&/[place] [address] KUSH CURRIE SWALLOWIN 0 [facility] DYSFUNCTI ON&/[place] [address] KUSH CURRIE SWALLOWIN 0 [facility] DYSFUNCTI ON&/[place] [address] KUSH CURRIE SWALLOWIN 0 [facility] DYSFUNCTI ON&/[place] [address] MEADOWVIE MEADOWVIE IMAGING [address] [facility] [place] [address] KUSH CURRIE SWALLOWIN 0 [facility] DYSFUNCTI ON&[place] [address] KUSH CURRIE SWALLOWIN 0 [facility] DYSFUNCTI ON&/[place] [address] KUSH CURRIE SWALLOWIN 0 [facility] DYSFUNCTI ON&/[place] [address] KUSH CURRIE SWALLOWIN 0 [facility] DYSFUNCTI ON&/[place] [address] KUSH CURRIE SWALLOWIN 0 [facility] DYSFUNCTI ON&/ORAL FUNCJ FEEDING ENTERAL B4034 KUSH CURRIE FEEDING 0 CO HOSP CO HOSP SUPPLY MED EQUIP MED EQUIP KIT; & & SYRINGE FED PER DAY TAPE A4450 KUSH CURRIE NON-WATER 0 CO HOSP CO HOSP PROOF PER MED EQUIP MED EQUIP 18 & & [place] [address] KUSH CURRIE SWALLOWIN 0 [facility] DYSFUNCTI ON&/ORAL FUNCJ FEEDING GENERAL 76168 [facility] 0 [facility] PANEL CYANOCOBA 61530 [facility] JENNY 0 [facility] VITAMIN B-[place] [address] [facility] FOLIC 0 [facility] [place] [address] [facility] IRON 0 [facility] [place] [address] [facility] CH[facility] ZINC [address] [facility] PREALBUMI 59051 [facility] N 0 [facility] [place] [address] KUSH CURRIE SWALLOWIN 0 [facility] HOSPITAL DYSFUNCTI ON&/[place] [address] JESSIE ROMAN LIPASE 0 [facility] COMPREHEN 84682 JESSIE ROMAN SIVE 0 CO CO METABOLIC [facility] [place] [address] JESSIE ROMAN AMYLASE 0 CO [facility] COLLECTIO 55998 JESSIE LABORATOR N VENOUS 0 CO Y BLOOD HOSPITAL CORPORATI VENIPUNCT ON OF AM URE ANTIBODY 36323 JESSIE ROMAN HELICOBAC [address] [facility] PYLORI CULTURE 54400 JESSIE ROMAN BACTERIAL 0 CO [facility] QUANTTATI VE COLONY COUNT URINE BLOOD 12637 JESSIE ROMAN COUNT 0 CO CO SMEAR [facility] MCRSCP W/MNL DIFRNTL WBC COUNT THER 11155 JESSIE ROMAN PROPH/DX 0 CO CO NJX IV [facility] PUSH SINGLE/1S T SBST/DRUG URNLS DIP 18737 JESSIE LABORATOR 0 CO Y STICK/TAB HOSPITAL CORPORATI LET [place] [address] KUSH CURRIE SWALLOWIN 0 [facility] HOSPITAL DYSFUNCTI ON&/[place] [address] KUSH CURRIE SWALLOWIN 0 [facility]PITAL DYSFUNCTI ON&/[place] [address] KUSH CURRIE SWALLOWIN 0 [facility] HOSPITAL DYSFUNCTI ON&/ORAL FUNCJ FEEDING SWALLOWIN 87823 CURRIE CURRIE G FUNCJ 0 CO CO W/CINERAD [facility] IOGRAPY/V IDRADIOG MOTION 05676 KUSH CURRIE FLUOR 0 CO CO [facility] FUNCJ C/[place] [address] KUSH CURRIE SWALLOWIN 0 CO CO [facility] DYSFUNCTI ON&/ORAL FUNCJ FEEDING EVAL 83396 KUSH CURRIE ORAL&PHAR 0 CO CO YNGEAL [facility] FUNCJ COLLECTIO 89196 NIKITA LOPEZCORBY N VENOUS 0 W W BLOOD [facility] VENIPUNCT MEDICAL MEDICAL URE BLOOD 18770 MEADOWVIE MEADOWVIE COUNT 0 W W COMPLETE [facility] [place] [address] [facility] CO CO THERAPY/P [facility] ROPHYLAXI S /DX 1ST TO 1 [place] [address] [facility] INFUSION 0 CO CO HYDRATION [facility] INITIAL 31 MIN-1 [place] [address] [facility] 0 CO CO HYDRATION [facility] EACH ADDITIONA L HOUR INJECTION J0330 [facility] 0 Y Y SUCCINYLC [facility] HOLINE CHLORIDE UP TO 20 MG ESOPHAGOS 34570 [place] [facility] COPY 0 MEDICAL CECILIA FLEXIBLE SERV TRANSORAL FOUNDATIO DIAGNOSTI C INJECTION J2710 [facility] 0 Y Y NEOSTIGMI [facility] NE METHYLSUL FATE UP TO 0.5 MG INJECTION J3010 [facility] FENTANYL 0 Y Y CITRATE [facility] 0.1 MG LARYNGOSC 36484 [place] [facility] OPY W/WO 0 MEDICAL CECILIA TRACHEOSC SERV OPY FOUNDATIO W/MICRO/T ELESCOPE INJECTION J2250 [facility] 0 Y Y MIDAZOLAM [facility] HCL PER 1 MG ANES 42059 [place] PALACIOS ESOPH 0 MEDICAL CORY THYRD SERV LARYNX FOUNDATIO TRACH & LYMPH NECK 1YR DILATION 56668 [place] ESOPH 0 MEDICAL CECILIA UNGUIDED SERV SOUND/YVETTE FOUNDATIO GIE 1/MULT PASS INJECTION J1100 [facility] 0 Y Y DEXAMETHO [facility] SONE SODIUM PHOSPHATE 1 MG RINGERS J7120 [facility] LACTATE 0 Y Y INFUSION [facility] UP TO [address] THORAX 23729 [place] ATTILI 0 MEDICAL ANI W/CONTRAS SERV T FOUNDATIO MATERIAL CREATININ 13981 [facility] E BLOOD 0 Y Y HOSPITAL H[facility]PITAL CT SOFT 96020 [place] AMATO TISSUE 0 MEDICAL JONATAN NECK SERV W/CONTRAS FOUNDATIO T MATERIAL COLLECTIO 57992 [facility] N VENOUS 0 Y Y BLOOD [facility] [place] [address] [facility] UREA 0 Y Y NITROGEN [facility] QUANTITAT [place] 45845 JESSICA Benson FUNCJ 0 NGOZI W/CINERAD RADIOLOGY IOGRAPY/V ASSOCIAT IDRADIOG MOTION 50975 [facility] FLUOR 0 CO [facility] SW[place] FUNC[place] C/[place] [address] JESSIE ROMAN INFUSION 0 CO CO THERAPY/P [facility] S /DX 1ST TO 1 [place] [address] JESSIE ROMAN INFUSION 0 CO CO THERAPY [facility] PROPHYLAX IS/[place] [address] JESSIE ROMAN INFUSION 0 CO CO THERAPY [facility] [place] [address] JESSIE ROMAN INFUSION 0 CO CO THERAPY/P [facility] ROPHYLAXI S /DX 1ST TO 1 [place] [address] JESSIE ROMAN INFUSION 0 CO [facility] /DX 1ST TO [place] [address] JESSIE ROMAN INFUSION 0 CO CO THERAPY [facility] [place] [address] JESSIE JESSIE INFUSION 0 CO CO THERAPY [facility] PROPHYLAX IS/DX EA HOUR COMPREHEN 31377 JESSIE ROMAN SIVE 0 CO CO METABOLIC [facility] PANEL COLLECTIO 72054 JESSIE BURRELLS N VENOUS 0 CO CO BLOOD HOSPITAL HOSPITAL VENIPUNCT URE CULTURE 20655 JESSIE JESSIE BACTERIAL 0 CO CO BLOOD [facility] AEROB[place] W/[place] [address] JESSIE JESSIE INFUSION 0 CO CO THERAPY/P [facility] ROPHYLAXI S /DX 1ST TO 1 HR RADIOLOGI 36714 JESSIE Jimenez EXAM 0 CO CO CHEST 2 [facility] VIEWS FRONTAL&L ATERAL URNLS DIP 49166 JESSIE SANCHEZOLAS 0 CO CO STICK/TAB HOSPITAL HOSPITAL LET REAGENT AUTO MICROSCOP Y BLOOD 08383 JESSIE JESSIE COUNT 0 CO CO COMPLETE [facility] AUTO&AUTO DIFRNTL WBC RESP E0600 NAOMIE AKBAR SUCTION 0 HOME MED HOME MED PUMP HOME EQUIP. L EQUIP. L MODEL PRTBLE/ST ATION ELEC TAPE A4450 KUSH CURRIE NON-WATER 0 CO HOSP CO HOSP PROOF PER MED EQUIP MED EQUIP 18 & & SQUARE INCHES BLOOD 43722 NIKITA MEAWVIE COUNT 0 W W COMPLETE [facility]OMATED [facility] CENTER COLLECTIO 37098 JESSICAANGELA LOPEZDALIAVIE N VENOUS 0 W W BLOOD [facility] VENIPUNCT [place] [address] ONCOLOGY JAJA, INFUSION 0 HEMATOLOG BRITTANY M HYDRATION Y CARE INITIAL INC 31 MIN-1 HOUR COMPREHEN 49826 MEADOWVIE MEAWVIE SIVE 0 W W METABOLIC [facility] PANEL [facility] CENTER COMPREHEN 04727 CURRIE CURRIE SIVE 0 CO CO METABOLIC [facility] PANEL BLOOD 58587 KUSH CURRIE COUNT 0 CO CO COMPLETE [facility] AUTO&AUTO DIFRNTL WBC RADEX 16171 [facility] SPINE 0 EIDER, LUMBOSACR RADIOLOGY NANDINI WILKINSON 2/3 K VIEWS ASSOCIATE S PSC SBSQ 33743 [facility] 0 CLINIC CHAMP CARE/DAY PSC 15 MINUTES RADIOLOGI 48766 Barbara TINSLEY EXAM 0 CECI C CHEST 2 RADIOLOGY VIEWS FRONTAL&L ASSOCIATE ATERAL S PSC OBSERVATI 12753 [facility] ON CARE 0 , MINOR , MINOR DISCHARGE MANAGEMEN T THER 84932 JESSIE ROMAN PROPH/DX 0 CO CO NJX IV [facility] PUSH SINGLE/1S T SBST/DRUG BLOOD 18604 JESSIE ROMAN COUNT 0 CO CO COMPLETE [facility] AUTO&[place] [address] JESSIE ROMAN INFUSION 0 CO CO THERAPY/P [facility] ROPHYLAXI S /DX 1ST TO 1 HR HOSPITAL G0378 JESSIE ROMAN OBSERVATI 0 CO CO ON [place]OS[place] H[place] [address] JESSIE RMOAN INFUSION 0 CO CO HYDRATION [facility] INITIAL 31 MIN-1 HOUR COMPREHEN 29881 JESSIE ROMAN SIVE 0 CO CO METABOLIC [facility] PANEL COLLECTIO 51807 JESSIE ROMAN N VENOUS 0 CO CO BLOOD [facility] VENIPUNCT URE THROMBOPL 24511 JESSIE ROMAN ASTIN 0 CO CO TIME [facility] PARTIAL PLASMA/WH OLE BLOOD BLOOD 74220 JESSIE ROMAN COUNT 0 CO CO SMEAR [facility] MCRSCP W/MNL DIFRNTL WBC COUNT RADIOLOGI 67417 [place] SH[place], C 0 CECI Jimenez EXAMINATI RADIOLOGY ON CHEST SINGLE ASSOCIATE VIEW S PSC FRONTAL PROTHROMB 87200 JESSIE ROMAN IN TIME 0 CO CO [facility] HOSPITAL RADEX ABD 79121 JESSIE ROMAN COMPL 0 CO CO AQT ABD [facility] W/S/E/D VIEWS 1 VIEW CH RADEX 17654 [place], ABDOMEN 1 0 CECI Jimenez RADIOLOGY ANTEROPOS TERIOR ASSOCIATE VIEW S PSC INITIAL 93320 [facility] GR OBSERVATI 0 , MINOR , MINOR ON CARE/DAY 70 MINUTES RADJ DLVR 86307 [place] INA 3/> 0 MEDICAL PRA AREAS SERV CUSTOM FOUNDATIO BLKING 6-10MEV RADJ DLVR 89455 [place] INA 3/> 0 MEDICAL PRA AREAS SERV CUSTOM FOUNDATIO BLKING 6-10MEV RADIATION 61897 [place] INA 0 MEDICAL PRA TREATMENT SERV FOUNDATIO MANAGEMEN T 5 TREATMENT S RADJ DLVR 10447 [place] INA 3/> 0 MEDICAL PRA AREAS SERV CUSTOM FOUNDATIO BLKING 6-10MEV RADJ DLVR 02279 [place] INA 3/> 0 MEDICAL PRA AREAS SERV CUSTOM FOUNDATIO BLKING 6-10MEV CONTINUIN 46570 [place] INA G MEDICAL 0 MEDICAL PRA PHYSICS SERV CONSLTJ FOUNDATIO CO WK INJECTION J2469 ONCOLOGY ONCOLOGY 0 HEMATOLOG HEMATOLOG [place] Y CARE IN Y CARE IN OCTAVIANO HCL 25 MCG CHEMOTX 10107 ONCOLOGY JAJA CHR ADMN IV 0 HEMATOLOG NFS TQ UP Y CARE IN 1 HR SBST/DRUG INJECTION J9060 ONCOLOGY JAJA CHR 0 HEMATOLOG CISPLATIN Y CARE IN POWDER OR SOLUTION 10 MG THERAPEUT 98283 [place] INA IC 0 MEDICAL PRA RADIOLOGY SERV PORT FOUNDATIO IMAGES(S) RADIATION 14683 [place] INA 0 MEDICAL PRA TREATMENT SERV FOUNDATIO MANAGEMEN T 5 [place] [address] ONCOLOGY JAJA CHR INFUSION 0 HEMATOLOG HYDRATION [place] [address] ONCOLOGY JAJA CHR INFUSION 0 HEMATOLOG THER Y CARE IN PROPH ADDL SEQUENTIA L TO 1 HR COMPREHEN 82849 MEADOWVIE MEADOWVIE SIVE 0 W W [facility] PANEL [facility] CENTER COLLECTIO 08603 MEADOWVIE MEADOWVIE N VENOUS 0 W W BLOOD [facility] THERAPEUT 52738 ONCOLOGY JAJA CHR IC 0 HEMATOLOG INJECTION Y CARE IN IV PUSH EACH NEW DRUG BLOOD 46401 MEADOWVIE MEADOWVIE COUNT 0 W W COMPLETE [facility] AUTOMATED [facility] CENTER RADJ DLVR 77628 [place] INA 3/> 0 MEDICAL PRA AREAS SERV CUSTOM FOUNDATIO BLKING 6-10MEV RADJ DLVR 43399 [place] INA 3/> 0 MEDICAL PRA AREAS SERV CUSTOM FOUNDATIO BLKING 6-10MEV CONTINUIN 04585 [place] I[place] G MEDICAL 0 MEDICAL PRA PHYSICS SERV CONSLTJ FOUNDATIO CO WK RADJ DLVR 71556 [place] I[place] 3/> 0 MEDICAL PRA AREAS SERV CUSTOM FOUNDATIO BLKING 6-10MEV RADJ DLVR 44043 [place] INA 3/> 0 MEDICAL PRA AREAS SERV CUSTOM FOUNDATIO BLKING 6-10MEV RADJ DLVR 61585 [place] I[place] 3/> 0 MEDICAL PRA AREAS SERV CUSTOM FOUNDATIO BLKING 6-10MEV RADIATION 61606 [place] INA 0 MEDICAL PRA TREATMENT SERV FOUNDATIO MANAGEMEN T 5 TREATMENT S GENERAL 82559 [facility] 0 [employer] PANEL RADJ DLVR 01935 [place] INA 3/> 0 MEDICAL PRA AREAS SERV CUSTOM FOUNDATIO BLKING 6-10MEV LIPID 44658 [facility] PANEL 0 [employer] BASIC 84959 [place] I[place] RADIATION 0 MEDICAL PRA SERV DOSIMETRY FOUNDATIO CALCULATI ON TELETHERA 98123 [place] PY 0 MEDICAL PRA ISODOSE SERV PLAN FOUNDATIO COMPLETE RADJ DLVR 06372 [place] I[place] 3/> 0 MEDICAL PRA AREAS SERV CUSTOM FOUNDATIO BLKING 6-10MEV RADJ DLVR 57011 [place] I[place] 3/> 0 MEDICAL PRA AREAS SERV CUSTOM FOUNDATIO BLKING 6-10MEV CONTINUIN 17437 [place] I[place] G MEDICAL 0 MEDICAL PRA PHYSICS SERV CONSLTJ FOUNDATIO CO WK RADIATION 32797 [place] INA 0 MEDICAL PRA TREATMENT SERV FOUNDATIO MANAGEMEN T 5 TREATMENT S THER RAD 86171 [place] I[place] SIMULAJ-A 0 MEDICAL PRA IDED [place] [address] [place] DEVICES 0 MEDICAL PRA DESIGN & SERV CONSTRUCT FOUNDATIO ION COMPLEX RADJ DLVR 67418 [place] ZHANE, 3/> 0 MEDICAL DAVID AREAS SERV CUSTOM FOUNDATIO BLKING 6-10MEV RADJ DLVR 98948 [place] ZHANE, 3/> 0 MEDICAL DAVID AREAS SERV CUSTOM FOUNDATIO BLKING 6-10MEV CONTINUIN 84600 [place] I[place] G MEDICAL 0 MEDICAL PRA PHYSICS SERV CONSLTJ FOUNDATIO CO WK RADJ DLVR 64319 [place] I[place] 3/> 0 MEDICAL PRA AREAS SERV CUSTOM FOUNDATIO BLKING 6-10MEV RADJ DLVR 08173 [place] I[place] 3/> 0 MEDICAL PRA AREAS SERV CUSTOM FOUNDATIO BLKING 6-10MEV COMPREHEN 00274 NIKITA MEAWVIE SIVE 0 W W [facility] RADIATION 97089 [place] INA 0 MEDICAL PRA TREATMENT SERV FOUNDATIO MANAGEMEN T 5 TREATMENT S COLLECTIO 55900 JESSICACORBY SHELTON N VENOUS 0 W W BLOOD [facility] CENTER BASIC 19516 [place] INA RADIATION 0 MEDICAL PRA SERV DOSIMETRY FOUNDATIO CALCULATI ON TELETHERA 14214 [place] I[place] PY 0 MEDICAL PRA ISODOSE SERV PLAN FOUNDATIO COMPLETE BLOOD 25143 JESSICADOANGELA MEADOWVIE COUNT 0 W W COMPLETE [facility] CENTER RADJ DLVR 03329 [place] INA 3/> 0 MEDICAL PRA AREAS SERV CUSTOM FOUNDATIO BLKING 6-10MEV RADJ DLVR 41118 [place] I[place] 3/> 0 MEDICAL PRA AREAS SERV CUSTOM FOUNDATIO BLKING 6-10MEV LARYNGOSC 98780 [place] [facility] OPY 0 MEDICAL , HANNAH FLEXIBLE SERV DIAGNOSTI FOUNDATIO C RADJ DLVR 71959 [place] INA 3/> 0 MEDICAL PRA AREAS SERV CUSTOM FOUNDATIO BLKING 6-10MEV CONTINUIN 98706 [place] I[place] G MEDICAL 0 MEDICAL PRA PHYSICS SERV CONSLTJ FOUNDATIO CO WK RADJ DLVR 39975 [place] I[place] 3/> 0 MEDICAL PRA AREAS SERV CUSTOM FOUNDATIO BLKING 6-10MEV THERAPEUT 40679 [place] I[place] IC 0 MEDICAL PRA RADIOLOGY SERV PORT FOUNDATIO IMAGES(S) RADJ DLVR 05951 [place] INA 3/> 0 MEDICAL PRA AREAS SERV CUSTOM FOUNDATIO BLKING 6-10MEV RADIATION 59645 [place] INA 0 MEDICAL PRA TREATMENT SERV FOUNDATIO MANAGEMEN T 5 TREATMENT S RADJ DLVR 67372 [place] I[place] 3/> 0 MEDICAL PRA AREAS SERV CUSTOM FOUNDATIO BLKING 6-10MEV RADJ DLVR 99007 [place] I[place] 3/> 0 MEDICAL PRA AREAS SERV CUSTOM FOUNDATIO BLKING 6-10MEV RADJ DLVR 17318 [place] 3/> 0 MEDICAL PRA AREAS SERV CUSTOM FOUNDATIO BLKING 6-10MEV RADJ DLVR 80482 [place] 3/> 0 MEDICAL PRA AREAS SERV CUSTOM FOUNDATIO BLKING 6-10MEV THERAPEUT 03526 [place] IC 0 MEDICAL PRA RADIOLOGY SERV PORT FOUNDATIO IMAGES(S) CONTINUIN 01639 [place] G MEDICAL 0 MEDICAL PRA PHYSICS SERV CONSLTJ FOUNDATIO CO WK RADJ DLVR 94147 [place] 3/> 0 MEDICAL PRA AREAS SERV CUSTOM FOUNDATIO BLKING 6-10MEV RADIATION 94685 [place] 0 MEDICAL PRA TREATMENT SERV FOUNDATIO MANAGEMEN T 5 TREATMENT S RADJ DLVR 00167 [place] 3/> 0 MEDICAL PRA AREAS SERV CUSTOM FOUNDATIO BLKING 6-10MEV RADJ DLVR 60576 [place] 3/> 0 MEDICAL PRA AREAS SERV CUSTOM FOUNDATIO BLKING 6-10MEV RADJ DLVR 16482 [place] 3/> 0 MEDICAL PRA AREAS SERV CUSTOM FOUNDATIO BLKING 6-10MEV RADJ DLVR 53011 [place] 3/> 0 MEDICAL PRA AREAS SERV CUSTOM FOUNDATIO BLKING 6-10MEV RADIATION 25327 [place] 0 MEDICAL PRA TREATMENT SERV FOUNDATIO MANAGEMEN T 5 [place] [address] [place] SIMULAJ-A 0 MEDICAL PRA [place] [address] [place] DEVICES 0 MEDICAL PRA DESIGN & [place] [address] [place] MOJGAN GUIDANCE 0 MEDICAL EDU RADIATION SERV THERAPY FOUNDATIO FLDS PLACEMENT CONTINUIN 85555 [place] G MEDICAL 0 MEDICAL PRA PHYSICS SERV CONSLTJ FOUNDATIO [place] EGD 17432 [place] CHRISTINA PERCUTANE 0 MEDICAL RICH OUS SERV PLACEMENT FOUNDATIO GASTROSTO MY TUBE LARYNGOSC 49923 [place] SANTOSH OPY 0 MEDICAL CECILIA W/BIOPSY SERV MICROSCOP FOUNDATIO [place] [address] [place] HDZ SURG 0 MEDICAL VARGAS PATHOLOGY SERV FOUNDATIO GROSS&KAMILA ROSCOPIC EXAM ANES 74589 [place] STEVIE ESOPH 0 MEDICAL THYRD SERVICES LARYNX TRACH & LYMPH NECK 1YR L HRT 19465 [place] LINO CATHETERI 0 MEDICAL CALEB ZATION SERV RETROGRAD [place] [address] [place] C-CATHJ 0 MEDICAL CALEB F/SLCTV C SERV ANGRPH FOUNDATIO I SI&R 54020 [place] F/NJX PX 0 MEDICAL CALEB DURING SERV C-CATHJ FOUNDATIO VENTR&/AT R ANGRPH I SI&R 50520 [place] F/NJX PX 0 MEDICAL CALEB DURING SERV C-CATHJ FOUNDATIO PULM&/OR SELECT INJECTION 60316 [place] CARDIAC 0 MEDICAL CALEB CATHJ L SERV VENTR/L FOUNDATIO ATR ANGIOGRAP H ECG 04891 [facility] ROUTINE 0 Y Y ECG [facility] W/LEAST 12 LDS TRCG ONLY W/O I&R CT THORAX 46748 [facility] 0 Y Y W/CONTRAS HOSPITAL HOSPITAL T MATERIAL CT SOFT 84335 [facility] TISSUE 0 Y Y NECK [facility] W/CONTRAS T MATERIAL ECG 64655 [facility] ROUTINE 0 MEDICAL NAN ECG SERV W/LEAST FOUNDATIO 12 LDS I&R ONLY BLOOD 98751 [facility] COUNT 0 Y Y COMPLETE [facility] AUTOMATED COMPREHEN 85467 [facility] SIVE 0 Y Y METABOLIC [facility] PANEL COLLECTIO 20950 [facility] N VENOUS 0 Y Y BLOOD [facility] VENIPUNCT URE THROMBOPL 10494 [facility] ASTIN 0 Y Y TIME [facility] PARTIAL PLASMA/[place] [address] [facility] FREE 0 Y Y THYROX[place] [address] [facility] THYROID 0 Y Y STIMULATI [facility] NG HORMONE TSH PROTHROMB 41809 [facility] IN TIME 0 Y Y LDS [facility] CT THORAX 06840 [facility] S W/CONTRAS RADIOLOGY T MATERIAL ASSOCIATE S PSC ADMN SET [id number] YOUR YOUR SM VOL 8 PHARMACY PHARMACY NONFILTR [facility] PNEUMAT NEBULIZR DISPBL THER 88288 JESSIE ROMAN PROPH/DX 8 CO [facility] SUBQ/IM THER 16045 JESSIE ROMAN PROPH/DX 8 [facility] SUBQ/IM THER 06102 JESSIE ROMAN PROPH/DX 8 [facility] SUBQ/IM RADIOLOGI 99782 [place] [facility] EXAM 8 JOAQUÍN S CHEST 2 RADIOLOGY VIEWS FRONTAL&L ASSOCIATE ATERAL S PSC O2 CONC 1 [id number] NAOMIE AKBAR [facility] 8 HOME MED HOME MED 85%/>02 EQUIP. EQUIP. CONC AT [employer] [facility] FLW RATE O2 CONC 1 E1390 NAOMIE AKBAR [facility] 8 HOME MED HOME MED 85%/>02 EQUIP. EQUIP. CONC AT [employer] [facility] FLW RATE O2 CONC 1 E1390 [place] [address] HOME MED HOME MED 85%/>02 EQUIP. EQUIP. CONC AT [employer] [facility] [place] [address] [facility] THYROID 8 [facility] STIMULATI NG HORMONE TSH COMPREHEN 67118 [facility] SIVE 8 [facility] METABOLIC PANEL CYANOCOBA 08419 [facility] JENNY 8 [facility] VITAMIN B-12 LIPID 49064 [facility] PANEL 8 [facility] DEMO&/VINICIO 86394 JESSIE Velasco OF PT 8 CO CO UTILST. [facility] AERSL GEN/NEB/I NHLR/IP THER 57391 JESSIE ROMAN PROPH/DX 8 CO CO NHX [facility] SUBQ/IM ECG 59434 JESSIE ROMAN ROUTINE 8 CO CO ECG [facility] W/LEAST 12 LDS TRCG ONLY W/O I&R MANJ 92955 JESSIE ROMAN WALL 8 CO CO FACILITAT [facility] E LNG FUNCJ 1 DEMO&/VINICIO L O2 CONC 1 E1390 [place] [address] HOME MED HOME MED 85%/>02 EQUIP. EQUIP. CONC AT [employer] [facility] FLW RATE ADMN SET A7005 YOUR YOUR W/SM VOL 8 PHARMACY PHARMACY [facility] NEBULIZR NON-DISPB L O2 CONC 1 E1390 [place] [address] HOME MED HOME MED 85%/>02 EQUIP. EQUIP. CONC AT [employer] [facility] FL[facility]ATE ADMN SET A7003 YOUR YOUR SM VOL 8 PHARMACY [facility] NEBUL[facility] DISPBL O2 CONC 1 E1390 [place] [address] HOME MED HOME MED 85%/>02 EQUIP. EQUIP. CONC AT [employer] [facility] FLW RATE Encounters Encounter Start End Date Code Location Performer Type Date HOSPITAL [facility] - 7 7 [facility] 51478 [facility] 7 7 PHYSICIAN T VISIT S GROUP 15 MINUTES HOSPITAL [place] [address] [facility] T EMERGENCY 68776 [facility] 7 DESIRE VISIT EMERGENCY HIGH PHYS SEVERITY& THREAT [facility] GOMEZ - 7 7 [facility] OUTPATIEN [facility] [place] [address] 7 [facility]EN [facility] [address] INPATIENT HOSPITAL [place] [address] 7 [facility]ENC[facility] 84253 [facility] 7 7 DESIRE VISIT EMERGENCY HIGH PHYS SEVERITY& THREAT [facility] [place] [address] 7 [facility] [place] [address] [facility] T OFFICE 08410 [facility] 7 7 PHYSICIAN T VISIT S GROUP 15 MINUTES HOSPITAL [place] [address] 7 [facility] T OFFICE 92177 [facility] 7 7 MEM HOSP T VISIT INC 10 MINUTES OFFICE 83630 [facility] 7 7 MD SUNNY, T VISIT PSC 15 MINUTES HOSPITAL [place] [address] 7 [facility] OUTPATIEN [facility] T OFFICE 18516 [facility] 7 7 PHYSICIAN T VISIT S GROUP 15 MINUTES HOSPITAL [place] [address] 7 [facility] OUTPATIEN [facility] [place] [address] [facility] T EMERGENCY 51520 [facility] 7 7 DESIRE DEPARTMEN EMERGENCY T VISIT PHYS HIGH/URGE NT SEVERITY EMERGENCY 74026 [facility] 7 7 DESIRE VISIT EMERGENCY HIGH PHYS SEVERITY& THREAT FUNCJ EMERGENCY 55496 [facility] 7 7 [facility] T VISIT HIGH/URGE NT SEVERITY HOSPITAL CURRIE - [address] [facility] T OFFICE 21412 [facility] OUTPATIEN 7 7 PHYSICIAN T VISIT S GROUP 15 MINUTES HOSPITAL GOMEZ - 7 7 MEM [facility] OUTPATIEN INC HOSPITAL GOMEZ - 7 7 [facility] OUTPATIEN INC T OFFICE 48625 [facility] OUT[facility] 7 7 PHYSICIAN T VISIT S GROUP 25 MINUTES HOSPITAL GOMEZ - 7 7 [facility] OUTPATIEN INC [facility] GOMEZ - 7 7 MEM [facility] OUTPATIEN INC T OFFICE 44780 [facility] OUTPATIEN 7 7 MEM HOSP T VISIT INC 10 MINUTES OFFICE 46841 [facility] 7 7 PHYSICIAN T VISIT S GROUP 25 MINUTES HOSPITAL GOMEZ - 7 7 MEM HOSP OUTPATIEN INC T OFFICE 03048 [facility] ADRIANJAKE OUTPATI 7 7 MD SUNNY, T VISIT PSC 15 MINUTES HOSPITAL GOMEZ - 7 7 MEM HOSP OUTPATIEN INC T OFFICE 78882 [facility] 7 7 MEM [facility] T VISIT INC 10 MINUTES HOSPITAL GOMEZ - 6 6 MEM [facility]P OUTPATIEN INC T OFFICE 71711 [facility] OUTPATIEN 6 6 PHYSICIAN T VISIT S GROUP 15 MINUTES HOSPITAL GOMEZ - 6 6 MEM [facility] OUTPATIEN INC T OFFICE 15695 [facility] OUTPATIEN 6 6 PHYSICIAN KAMILA T VISIT S GROUP 15 MINUTES OFFICE 89066 [facility] OUTPATIEN 6 6 MEM HOSP T VISIT INC 10 MINUTES HOSPITAL GOMEZ - 6 6 [facility] OUTPATIEN INC T OFFICE 51405 [facility] OUTPATIEN 6 6 PHYSICIAN KAMILA T VISIT S GROUP 25 MINUTES HOSPITAL GOMEZ - 6 6 [facility] OUTPATIEN INC T OFFICE 11854 [facility] OUTPATIEN 6 6 PHYSICIAN KAMILA T VISIT S GROUP 15 MINUTES HOSPITAL GOMEZ - 6 6 MEM H[facility]P OUTPATIEN [facility] GOMEZ - [address] [facility] T OFFICE 47706 [facility] OUTPATIEN 6 6 MEM HOSP T NEW 10 INC [facility] WREN - [address] [facility] T OFFICE 91772 [facility] PHYSICIAN KAMILA T VISIT S GROUP 15 MINUTES OFFICE 38603 [facility] 6 6 Y MEDICAL MU T VISIT CLINIC 15 [facility] GOMEZ - 6 6 MEM HOSP OUTPATIEN [facility] EMERGENCY 12089 [facility] 6 6 [facility] HIGH SEVERITY& THREAT [facility] WREN - [address] [facility] T OFFICE 42159 [facility] 6 6 PHYSICIAN KAMILA T VISIT S GROUP 15 [facility] H[facility]PITAL GOMEZ - 6 6 MEM HOSP OUTPATIEN [facility] WREN - 6 6 [facility] UNIVERSIT - 6 6 [facility] T OFFICE 42111 [facility] 6 6 Y T VISIT 5 HOSPITAL [facility] GOMEZ - 6 6 MEM HOSP OUTPATIEN [facility] CURRIE - 6 6 [facility] GOMEZ - 6 6 [facility] G[facility] - 6 6 [facility] 47203 [facility] 6 6 PHYSICIAN KAMILA T VISIT S GROUP 15 MINUTES HOME [facility], 6 6 [facility] INPATIENT CENTER [facility] OFFICE 56956 [facility] 6 6 PHYSICIAN KAMILA T VISIT S GROUP 15 MINUTES HOME [facility], 6 6 [facility] INPATIENT [facility] 51827 [facility] 6 6 Y T VISIT 5 [facility] UNIVERSIT - 6 6 Y [facility] UNIVERSIT [facility] 6 6 [facility] T OFFICE 33642 [facility] 6 6 Y T VISIT 5 [facility] OFFICE 89158 [facility] 6 6 PHYSICIAN KAMILA T VISIT S GROUP 15 MINUTES [facility] G[facility] - 6 6 [facility], 6 6 [facility] INPATIENT CENTER [facility] EMERGENC[facility] 61563 DALILA SINGH DEPT 6 6 PHYSICIAN KAMILA VISIT S, PLLC HIGH SEVERITY& THREAT FUNC EMERGENCY 57796 [facility] DE[facility] 6 6 DESIRE NGOZI VISIT EMERGENCY HIGH PHYS SEVERITY& THREAT FUNCJ OFFICE 00700 [facility] 6 6 PHYSICIAN KAMILA T VISIT S GROUP 15 MINUTES HOSPITAL GOMEZ - 6 6 [facility] EMERGENCY 74404 [facility] 6 6 DESIRE DEPARTMEN EMERGENCY T VISIT PHYS MODERATE SEVERITY OFFICE 45173 [facility] OUTPATIEN 6 6 PHYSICIAN KAMILA T VISIT S GROUP 15 MINUTES HOSPITAL GOMEZ - 6 6 MEM [facility]P OUTPATIEN [facility] GOMEZ - 6 6 MEM [facility] OUTPATIEN [facility] GOMEZ - 6 6 MEM [facility] OUTPATIEN [facility] OFFICE 26002 [facility] OUTPATIEN 6 6 PHYSICIAN KAMILA T VISIT S GROUP 15 MINUTES OFFICE 77913 [facility] OUTPATIEN 5 5 PHYSICIAN KAMILA T VISIT S GROUP 10 MINUTES OFFICE 88147 SHERMAN MANZANARES OUTPATIEN 5 5 Y [facility]ICAL [facility] T VISIT CLINIC 15 MINUTES OFFICE 05144 CARDIOVAS BRITANY OUTPATIEN 5 5 CULAR MAT T VISIT CONSULTAN 25 TS O MINUTES HOSPITAL GOMEZ - 5 5 MEM [facility]P OUTPATIEN [facility] OFFICE 98107 [facility] OUTPATIEN 5 5 PHYSICIAN KAMILA T VISIT S GROUP 15 MINUTES OFFICE 17069 GOMEZ HICKMAN OUTPATIEN [address] [facility] 15 MINUTES HOSPITAL CURRIE - 5 5 [facility] EMERGENCY 13331 [facility] DE[facility] 5 5 DESIRE MAR VISIT EMERGENCY HIGH PHYS SEVERITY& THREAT FUNC OFFICE 75737 [facility] OUTPATIEN 5 5 PHYSICIAN KAMILA T VISIT S GROUP 10 MINUTES OFFICE 02242 CARDIOVAS BRITANY OUTPATIEN 5 5 CULAR MAT T VISIT CONSULTAN 25 TS O [facility]UTES [facility] - 5 5 [facility] OUTPATIEN [facility] GOMEZ - 5 5 [facility] OUTPATIEN [facility] GOMEZ - 5 5 [facility] OUTPATIEN INC T OFFICE 62937 CARDIOVAS BRITANY OUTPATIEN 5 5 CULAR MAT T VISIT CONSULTAN 40 TS O MINUTES OFFICE 71067 [facility] OUTPATIEN 5 5 PHYSICIAN KAMILA T VISIT S GROUP 15 MINUTES HOSPITAL GOMEZ - 5 5 [facility] OUTPATIEN INC T OFFICE 32114 CARDIOVAS BRITANY OUTPATIEN 5 5 CULAR MAT T VISIT CONSULTAN 25 TS O MINUTES HOSPITAL GOMEZ - 5 5 [facility] OUTPATIEN INC [facility]OSPITAL GOMEZ - 5 5 [facility] OUTPATIEN INC T OFFICE 58533 [facility] OUTPATIEN 5 5 PHYSICIAN KAMILA T VISIT S GROUP 10 MINUTES OFFICE 52695 CARDIOVAS BRITANY OUTPATIEN 5 5 CULAR MAT T VISIT CONSULTAN 40 TS O MINUTES HOSPITAL GOMEZ - 5 5 MEM [facility] OUTPATIEN INC T OFFICE 86977 [facility] OUTPATIEN 5 5 PHYSICIAN KAMILA T VISIT S GROUP 15 MINUTES OFFICE 06984 CARDIOVAS BRITANY OUTPATIEN 5 5 CULAR MAT T VISIT CONSULTAN 25 TS O MINUTES HOSPITAL GOMEZ - 5 5 MEM [facility] OUTPATIEN INC T OFFICE 92719 [facility] OUTPATIEN 5 5 PHYSICIAN KAMILA T VISIT S GROUP 15 MINUTES HOSPITAL WHITNEYVIE - 5 5 W OUTPATIEN REGIONAL T MEDICAL EMERGENCY 95389 [facility] DEPT 5 5 DESIRE TARAH VISIT EMERGENCY HIGH PHYS SEVERITY& THREAT FUN OFFICE 85137 [facility] OUTPATIEN 5 5 PHYSICIAN KAMILA T VISIT S GROUP 15 MINUTES OFFICE 40011 [facility] OUTPATIEN 5 5 [facility] HAM T NEW [address] HANNAH - 5 5 HOSPITAL INPATIENT OFFICE 03828 [facility] OUTPATIEN 5 5 PHYSICIAN KAMILA T VISIT S GROUP 15 MINUTES OFFICE 02386 [facility] OUTPATIEN 5 5 PHYSICIAN KAMILA T VISIT S GROUP 15 MINUTES OFFICE 30665 CARDIOVAS BLACK JAZZMINE OUTPATIEN 5 5 CULAR T NEW 60 CONSULTAN MINUTES TS HOSPITAL MEADOWVIE - 5 5 W OUTPATIEN REGIONAL T [facility] WREN - OTHER 5 5 [facility] GOMEZ - 5 5 [facility] T OFFICE 72520 [facility] OUTPATIEN 5 5 PHYSICIAN KAMILA T VISIT S GROUP 15 MINUTES OFFICE 22672 [facility] FARNCISCO OUTPATIEN 5 5 PHYSICIAN KAMILA T VISIT S GROUP 25 MINUTES HOSPITAL CURRIE - 5 5 [facility] T EMERGENCY 61203 BANNER 5 5 DESIRE [facility] EMERGENCY T VISIT PHYS HIGH/URGE NT SEVERITY EMERGENCY 92563 CURRIE 5 5 CO [facility] H[facility]PITAL T VISIT MODERATE SEVERITY OFFICE 28676 [facility] OUTPATIEN 5 5 PHYSICIAN KAMILA T NEW 20 S GROUP MINUTES OFFICE 05994 [facility] ESPOSITO OUTPATIEN 5 5 CLINIC HEN T VISIT 15 MINUTES OFFICE 40948 UNIVERSIT OUTPATIEN 5 5 Y T VISIT HOSPITAL 10 MINUTES OFFICE 12843 TIFFANIE BERNABEO OUTPATIEN 5 5 MEDICAL CECILIA T VISIT SERV 15 FOUNDATIO MINUTES [facility] UNIVERSIT - 5 5 [facility] T [facility] 00331 [facility] ESPOSITO OUTPATIEN 4 4 CLINIC HEN T VISIT 15 MINUTES OFFICE 16106 [facility] VAIBHAV OUTPATIEN 4 4 CLINIC HEN T VISIT 15 MINUTES OFFICE 92999 [facility] OUTPATIEN 4 4 CECILIA CECILIA T VISIT 15 MINUTES HOSPITAL UNIVERSIT - 4 4 Y OUTPATI HOSPITAL T OFFICE 24037 UNIVERSIT OUTPATIEN 4 4 Y T VISIT HOSPITAL 10 MINUTES OFFICE 35378 [facility] KIRK OUTPATIEN 4 4 CLINIC NHI T VISIT 25 MINUTES OFFICE 23718 [facility] ESPOSITO OUTPATIEN 4 4 CLINIC HEN T VISIT 15 MINUTES OFFICE 78026 [facility] OUTPATIEN 4 4 CLINIC T VISIT 25 MINUTES OFFICE 09829 [facility] LISET-DREW OUTPATIEN 4 4 CLINIC SE YOSVANY T VISIT 25 MINUTES OFFICE 23633 [facility] OUTPATIEN 4 4 CECILIA CECILIA T VISIT 15 MINUTES HOSPITAL MHC INC, - 3 3 WELLNESS PROGRAM COORDINATOR OUTPATIEN JESSIE CO HOS OFFICE 84836 [facility] OUTPATIEN 3 3 CECILIA CECILIA T VISIT 25 MINUTES OFFICE 99187 TAMLYN NABEELN OUTPATIEN 3 3 Apr T VISIT 25 MINUTES OFFICE 01917 TAMAREN DEBORAHAREN OUTPATIEN 3 3 Apr T VISIT 25 MINUTES OFFICE 30564 TAMAREN DEBORAHAREN OUTPATIEN 3 3 Apr T VISIT 25 MINUTES HOSPITAL UNIVERSIT - 3 3 Y OUTPATIEN HOSPITAL T OFFICE 87756 [facility] SANTOSH OUTPATIEN 3 3 CECILIA CECILIA T VISIT 15 MINUTES OFFICE 57576 UNIVERSIT OUTPATIEN 3 3 Y T VISIT HOSPITAL 25 MINUTES OFFICE 08969 MARGO LEESN OUTPATIEN 2 2 Apr T VISIT 25 MINUTES OFFICE 79895 [facility] BONDENTINO OUTPATIEN 2 2 CECILIA CECILIA T VISIT 15 MINUTES OFFICE 53358 MARGO LEESN OUTPATIEN 2 2 Apr T VISIT 25 MINUTES OFFICE 22235 MARGO LEESN OUTPATIEN 2 2 Apr T VISIT 15 MINUTES [facility]OSPITAL [facility] - 2 2 WELLNESS PROGRAM COORDINATOR [facility] UNIVERSIT - 2 2 Y [facility] T OFFICE 60695 MARGO LEESN OUTPATIEN 2 2 Apr T VISIT 15 MINUTES OFFICE 13941 MARGO LEESN OUTPATIEN 2 2 Apr T VISIT 25 MINUTES OFFICE 07521 SANTOSH BERNABEO OUTPATIEN 2 2 CECILIA CECILIA T VISIT 15 MINUTES HOSPITAL UNIVERSIT - 2 2 Y [facility] HOSPITAL [facility] - 2 2 WELLNESS PROGRAM COORDINATOR [facility] OFF[facility] 50070 MARGO LEESN OUTPATIEN 2 2 Apr T VISIT 25 MINUTES [facility]OSPITAL [facility] - 2 2 WELLNESS PROGRAM COORDIN[facility] OFF[facility] 41127 MARGO LEESN OUTPATIEN 2 2 Apr T VISIT 15 MINUTES OFFICE 99813 JHONATHAN SNYDER OUTPATIEN 2 2 T VISIT 15 MINUTES HOSPITAL UNIVERSIT - 2 2 Y [facility] T OFFICE 58624 NABEELTrever DEBORAHSTIVEN OUTPATIEN 2 2 Apr T VISIT 25 MINUTES HOSPITAL JESSIE - 2 2 [facility] T OFFICE 58367 MARGO LEESTrever OUTPATIEN 1 1 CECILIA CECILIA T VISIT 25 MINUTES HOSPITAL UNIVERSIT - 1 1 [facility] T OFFICE 64861 SANTOSH BERNABEO OUTPATIEN 1 1 CECILIA CECILIA T VISIT 15 MINUTES OFFICE 92299 ROCCO VALIENTE OUTPATIEN 1 1 GRE GRE T NEW 45 MINUTES OFFICE 33453 MARGO LEESTrever OUTPATIEN 1 1 CECILIA CECILIA T VISIT 15 MINUTES HOSPITAL JESSIE - 1 1 [facility] T OFFICE 10903 [facility] LEESTrever OUTPATIEN 1 1 CLINIC CECILIA T VISIT PSC 25 [facility]UTES [facility] JESSIE - 1 1 [facility] T OFFICE 31360 TIFFANIE BERNABEO [facility] 1 1 MEDICAL CECILIA T VISIT SERV [facility] UNIVERSIT - 1 1 [facility] T OFFICE 05258 ALLRAN JR ALLRAN JR CONSULTAT 1 1 CALEB CALEB ION NEW/ESTAB PATIENT 40 MIN OFFICE 51361 [facility] DEBORAHSTIVEN OUTPATIEN 1 1 CLINIC CECILIA T VISIT PSC 15 MINUTES OFFICE 66369 [facility] DEBORAHSTIVEN OUTPATIEN 1 1 CLINIC CECILIA T VISIT PSC 25 MINUTES OFFICE 68376 ONCOLOGY JAJA CHR [facility] 1 1 HEMATOLOG T VISIT Y CARE IN 25 [facility] WHITNEYVIE - 1 1 W [facility] MEDICAL OFF[facility] 77749 TIFFANIE BRUMFIELD OUTPATIEN 1 1 MEDICAL T VISIT SERV [facility] WHITNEYVIE - 1 1 W [facility] MEDICAL OFFICE 19000 ONCOLOGY SIGMUND OUTPATIEN 1 1 HEMATOLOG ADOLFO T VISIT Y CARE IN 15 MINUTES OFFICE 72168 [facility] DEBORAHAREN OUTPATIEN 1 1 CLINIC CECILIA T VISIT PSC 15 MINUTES HOSPITAL JESSIE - 1 1 CO [facility] T OFFICE 01107 CH[facility]CHO NABEELN OUTPATIEN 1 1 CLINIC CECILIA T VISIT PSC 25 MINUTES OFFICE 24790 [facility] DEBORAHAREN OUTPATIEN 1 1 CLINIC CECILIA T VISIT PSC 15 MINUTES OFFICE 68877 [place] SANTOSH OUTPATIEN 1 1 MEDICAL CECILIA T VISIT SERV 15 [facility] UNIVERSIT - 1 1 Y [facility] T OFFICE 20382 ONCOLOGY JAJA CHR OUTPATIEN 1 1 HEMATOLOG T VISIT Y CARE IN 15 MINUTES HOSPITAL MEADOWVIE - 1 1 W [facility] CURRIE - 1 1 [facility] T OFFICE 49615 MARKUSALDINI MAILE OUTPATIEN 1 1 ETHAN ETHAN T VISIT 15 MINUTES OFFICE 40758 [place] SANTOSH [facility] 1 1 MEDICAL CECILIA T VISIT SERV 15 [facility] CURRIE - 1 1 [facility] MEADOWVIE - 0 0 W [facility] MEDICAL OFFICE 57949 RINALDINI RINALDINI [facility] 0 0 ETHAN ETHAN T VISIT 15 MINUTES HOSPITAL CURRIE - 0 0 [facility] CURRIE - 0 0 [facility] MEADOWVIE - 0 0 W [facility] MEDICAL OFFICE 45888 TIFFANIE BUCKLEY OUTPATIEN 0 0 MEDICAL PRA T VISIT SERV 10 FOUNDATIO MINUTES [facility] CURRIE - 0 0 CO 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 T OFFICE 32868 MAILE RINALDINI [facility] 0 0 ETHAN ETHAN T VISIT 25 MINUTES HOSPITAL CURRIE - 0 0 CO [facility] CURRIE - 0 0 [facility] MEADOWVIE - 0 0 W [facility] MEDICAL OFFICE 03836 MAILE APARICIOALDINI OUTPATIEN 0 0 ETHAN ETHAN T VISIT 25 MINUTES EMERGENCY 93407 JESSIE 0 0 CO [facility] HOSPITAL T VISIT LOW/MODER SEVERITY EMERGENCY 77474 MAILE APARICIOALDINI 0 0 ETHAN ETHAN [facility] T VISIT MODERATE SEVERITY HOSPITAL JESSIE - 0 0 CO [facility] UNIVERSIT - 0 0 Y [facility] T OFFICE 77167 TIFFANIE SANTOSH OUTPATIEN 0 0 MEDICAL CECILIA T VISIT SERV 15 FOUNDATIO MINUTES [facility] UNIVERSIT - 0 0 Y [facility] CURRIE - 0 0 CO [facility] HOME [facility], 0 0 HOME [facility] JESSIE - 0 0 CO [facility] T OFFICE 88541 JESSIE OUTPATIEN 0 0 CO T VISIT 5 HOSPITAL MINUTES OFFICE 33203 JESSIE OUTPATIEN 0 0 CO T VISIT 5 [facility] H[facility]PITAL JESSIE - 0 0 [facility] JESSIE - 0 0 [facility] 18187 JESSIE OUTPATIEN 0 0 CO T VISIT 5 [facility] H[facility]PITAL JESSIE - 0 0 [facility] T EMERGENCY 98105 JESSIE 0 0 [facility] T VISIT LIMITED/M INOR PROB EMERGENCY 75574 RINALDINI RINALDINI 0 0 , MINOR , MINOR [facility] T VISIT HIGH/URGE NT SEVERITY OFFICE 59388 RINALDINI RINALDINI OUTPATIEN 0 0 , MINOR MINOR T VISIT 10 MINUTES OFFICE 22782 ONCOLOGY JAJA, [facility] 0 0 HEMATOLOG BRITTANY M T VISIT Y CARE 15 INC MINUTES HOSPITAL MEADOWVIE - 0 0 W [facility] CURRIE - 0 0 CO [facility] T HOME [facility], 0 0 [facility] - 0 0 CO INPATIENT HOSPITAL HOSPITAL JESSIE - 0 0 [facility] T EMERGENCY [id number] JESSIE 0 0 [facility] T VISIT LOW/MODER SEVERITY EMERGENCY 49219 JESSIE 0 0 [facility] T VISIT LIMITED/M INOR PROB HOSPITAL JESSIE - 0 0 CO [facility] MEADOWVIE - 0 0 W [facility] OFFICE [id number] ONCOLOGY JAJA, OUTPATIEN 0 0 HEMATOLOG BRITTANY Virgen T VISIT Y CARE 25 INC MINUTES [facility], 0 0 [facility] OUTCOUNTS INCLUDE 234 BEDS AT THE [facility] T OFFICE 85261 RINALDINI RINALDINI OUTPATIEN 0 0 , MINOR , MINOR T VISIT 25 MINUTES OFFICE 12141 RINALDINI RINALDINI OUTPATIEN 0 0 , MINOR , MINOR T VISIT 15 MINUTES OFFICE 71439 [place] [facility] OUTPATI[facility] 0 0 MEDICAL , HANNAH T VISIT SERV 15 FOUNDATIO MINUTES OFFICE [id number] RINALDINI RINALDINI OUTPATIEN 0 0 , MINOR , MINOR T VISIT 15 MINUTES HOSPITAL MEADOWVIE - 0 0 W [facility] CENTER OFFICE 72138 [place] I[place] CONSULTAT 0 0 MEDICAL PRA ION SERV NEW/ESTAB FOUNDATIO PATIENT 30 MIN HOSPITAL UNIVERSIT - 0 0 Y [facility] T OFFICE 32638 [place] [facility] OUTPATIEN 0 0 MEDICAL CECILIA T VISIT SERV 25 FOUNDATIO MINUTES OFFICE 41404 [place] [facility] 0 0 MEDICAL CECILIA ION SERV NEW/ESTAB FOUNDATIO PATIENT 80 MIN HOSPITAL UNIVERSIT - 0 0 Y [facility] JESSIE - 8 8 [facility] T OFFICE 89510 [facility] 8 8 CO T VISIT 5 HOSPITAL MINUTES HOSPITAL JESSIE - 8 8 [facility] T OFFICE 61635 [facility] 8 CO T VISIT 5 HOSPITAL MINUTES HOSPITAL JESSIE - 8 8 CO [facility] T OFFICE 66195 [facility] 8 CO T VISIT 5 HOSPITAL MINUTES OFFICE 77490 CHENCHO LEESTrever, [facility] 8 8 [facility] 20 PSC MINUTES EMERGENCY 56977 JESSIE 8 8 CO [facility] T VISIT LIMITED/M [facility] JESSIE - 8 8 CO [facility] T HOSPITAL JESSIE - 8 8 CO [facility] T OFFICE 21851 MAILE ESTRADAINI [facility] 8 8 , ETHAN [place] T VISIT 5 MINUTES HOSPITAL JESSIE - 8 8 CO [facility] T OFFICE 94597 MAILE ESTRADAINI [facility] 8 8 , ETHAN [place] M T VISIT 5 MINUTES OFFICE 46385 NATALIEINI MARKUSALDINI [facility] 8 8 , ETHAN [place] M T VISIT 5 MINUTES OFFICE 45054 NATALIEINI MARKUSALDINI [facility] 8 8 , ETHAN G[place] T VISIT 5 MINUTES
--- OUTSIDE RECORDS SUMMARY | 2017-02-05 23:57 | External Medical Summary Rpt | CCD ---
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 EXERCISES Allergies, Adverse Reactions, [...] MA MG CY TA #2 BL ET UT 00 07 08 14 7 00 TO [...] MA MG CY TA #2 BL ET UT 00 02 03 10 5 00 TO [...] G CY IN VEGA #2 LE R UT 00 01 02 12 6 00 TO [...] MA MG CY TA #2 BL ET NY 13 01 02 14 7 00 TO [...] CY T 0. 02 % SO LN UT 50 10 10 0 24 6 CA [...] ti YL 15 IS 81 RE ve UT 02 20 20 LE N ED 20 [...] LE N RA 20 11 11 JA [place] 5 NE DE UG T 10 CO [...] DR 03 [address] JAMIL 40 UG T MG CO MP CA [...] LE N RA 20 11 11 [address] [place] [address] JAMIL DE UG T 10 [...] LE N RA 20 11 [address] JAMIL DE UG T 10 [...] 20 10 10 FA ET E 1 NY T HC LY T L 5 DR MG UG TA BL ET 00 08 11 5 12 30 SO 34 CO Ac 59 -0 -2 0. PE 89 ME ti 12 6- 4- 00 RS 35 R ve 22 20 20 0 BR 90 10 10 FA ET 5 [place] T LY T DR UG NE 00 09 10 1 30 30 SO 35 No Ac XI 18 -2 -3 .0 PE 32 t ti UM 65 9- 0- 00 RS 71 Av ve [address] 03 10 10 FA la 1 NY bl [address] UG CA PS UL E CE 68 10 10 0 28 7 SO 35 No Ac PH 18 -2 -2 .0 PE 52 t ti AL 00 RS 38 Av ve EX 12 20 20 ai IN 20 10 10 FA la 2 NY bl 50 LY e [address] UG CA PS UL E PI 00 08 10 5 90 30 SO 34 CO Ac LO 11 -0 -1 .0 PE 89 ME ti CA 55 6- 4- 00 RS 36 R ve RP 92 20 20 BR IN 20 10 10 FA ET E 1 NY T HC LY T L 5 DR MG UG TA BL ET 00 08 10 5 12 30 SO 34 CO Ac 59 -0 -1 0. PE 89 ME ti 12 6 RS 35 R ve 22 20 20 0 BR 90 10 10 FA ET 5 [place] T LY T DR UG NE 00 09 09 1 30 30 SO 35 No Ac XI 18 -2 -2 .0 PE 32 t ti UM 65 RS 71 Av ve [address] 03 10 10 FA la 1 NY bl [address] UG CA PS UL E [place] 00 09 09 0 24 5 SO [address] 60 -2 -2 0. PE 32 t ti AT 31 RS 70 Av ve IN 48 20 20 0 ai 15 10 10 FA la 10 8 NY bl 0, LY e [address] UN UG IT /M L GARCIA SP LI 50 09 09 0 10 5 SO 35 No Ac DO 38 -2 -2 0. PE 25 t ti CA 30 RS 93 Av ve IN 77 20 20 0 ai E 50 10 10 FA la 2% 4 NY bl LY e SC DR OU UG S SO LN GARCIA 00 09 09 0 30 15 SO 35 No Ac LF 60 -2 -2 .0 PE 25 t ti AM 35 RS 92 Av ve ET 78 20 20 ai HO 12 10 10 FA la XA 8 NY bl ZO LY e LE -T DR MP UG DS TA BL ET 00 09 09 0 23 26 SO 35 No Ac 12 -2 -2 65 PE 25 t ti 10 1- 1- .0 RS 91 Av ve 65 20 20 00 ai 51 10 10 FA la 6 [place] bl LY e DR UG PI 00 08 09 5 90 30 SO 34 CO Ac LO 11 -0 -1 .0 PE 89 ME ti CA 55 6- 3- 00 RS 36 R ve RP 92 20 20 BR IN 20 10 10 FA ET E 1 NY T HC LY T L 5 DR MG UG TA BL ET 00 08 09 5 12 30 SO 34 CO Ac 59 -0 -1 0. PE 89 ME ti 12 6- 3- 00 RS 35 R ve 22 20 20 0 BR 90 10 10 FA ET 5 [place] T LY T DR UG 00 08 08 0 30 3 SO 34 No Ac 12 -1 -1 0. PE 96 t ti 10 7- 7- 00 RS 80 Av ve 65 20 20 0 ai 51 10 10 FA la 6 [place] bl LY e DR UG PI 00 08 08 5 90 30 SO 34 CO Ac LO 11 -0 -0 .0 PE 89 ME ti CA 55 6- 6- 00 RS 36 R ve RP 92 20 20 BR IN 20 10 10 FA ET E 1 NY T HC LY T L 5 DR MG UG TA BL ET 00 08 08 5 12 30 SO 34 CO Ac 59 -0 -0 0. PE 89 ME ti 12 6- 6- 00 RS 35 R ve 22 20 20 0 BR 90 10 10 FA ET 5 NY T LY T DR UG FL 00 08 08 0 5. 5 SO 34 No Ac UC 17 -0 -0 00 PE 87 t ti ON 25 5- 5- 0 RS 61 Av ve AZ 41 20 20 ai OL 21 10 10 FA la E 1 NY bl 15 LY e [address] UG TA BL ET PE 00 07 08 1 59 1 SO 34 No Ac RM 47 -1 -0 .0 PE 73 t ti ET 25 9- 5- 00 RS 87 Av ve HR 24 20 20 ai IN 26 10 10 FA la 7 NY bl 1% LY e LO DR TI UG ON UT 60 07 08 5 50 16 WA 74 UT Ac OM 43 -2 -0 0. L- 79 AB ti ET 20 7- 2- 00 MA 88 HU ve VEGA 60 20 20 0 RT 5 ZI 81 10 10 UT NE 6 PH AM AR OD 6. MA V 25 CY # MG /5 10 15 ML 69 SY RP AM 00 07 07 0 28 9 SO 34 No Ac OX 78 -2 -2 .0 PE 81 t ti -C 11 8- 8- 00 RS 22 Av ve LA 83 20 20 ai V 12 10 10 FA la 50 0 NY bl 0- LY e [address] MG UG TA BL ET UT 00 07 07 1 12 30 WA [...] IN 26 10 10 FA la 7 NY bl 1% LY e LO DR TI UG ON CI 00 07 07 0 14 7 WA 74 SA Ac UT 37 -0 -0 .0 L- 77 PP [...] MA M CY # 10 15 69 UT 00 04 06 5 30 5 WA [...] e MA CY # 10 15 69 UT 00 06 06 1 30 30 WA [...] 06 06 3 14 14 WA 74 UT Ac UC 09 -1 -1 0. L- 73 AB ti ON 35 4- 4- 00 MA 39 HU ve AZ 41 20 20 0 RT 8 OL 49 10 10 UT E 5 PH AM 10 AR OD MA V MG CY /M # L GARCIA 10 SP 15 69 00 06 06 5 24 12 WA 74 UT Ac 09 -0 -0 0. L- 72 AB ti 39 7- 7- 00 MA 24 HU ve 63 20 20 0 RT 1 48 10 10 UT 7 PH AM AR OD MA V [...] IN 10 VEGA 15 LE 69 R UT 00 04 06 5 30 5 WA [...] 06 06 5 40 30 WA 74 UT Ac LV 59 -0 -0 0. L- 71 AB ti ER 10 1- 2- 00 MA 39 HU ve 81 20 20 0 RT 7 GARCIA 04 10 10 UT LF 6 PH AM AD AR OD [...] 40 72 07 08 FA la 3 NY bl MG LY e TA DR BL UG ET 00 08 08 00 20 4 SO 29 No Ac 59 -1 -2 .0 PE 06 t ti 10 3- 8- 00 RS 85 Av ve 34 20 20 ai 90 08 08 FA la 5 NY bl LY e DR UG 00 08 08 00 20 5 SO 29 No Ac 60 -1 -2 .0 PE 05 t ti 35 2- 8- 00 RS 68 Av ve 46 20 20 ai 83 08 08 FA la 2 NY bl LY e DR UG 00 08 08 00 80 10 SO 29 No Ac 78 -1 -2 .0 PE 06 t ti 12 3- 8- 00 RS 84 Av ve 11 20 20 ai 20 08 08 FA la 1 NY bl LY e UG 66 01 08 [...] 90 08 08 FA la E 1 NY bl UT LY e OP DR 50 UG MC G SP RA Y 15 08 08 00 20 10 SO 29 No Ac 68 -2 -2 .0 PE 14 t ti 60 2- 8- 00 RS 39 Av ve 10 20 20 ai 20 08 08 FA la 5 [place] bl LY e DR UG 00 08 08 00 21 6 SO 29 No Ac 55 -1 -2 .0 PE 08 t ti 50 4- 8- 00 RS 08 Av ve 30 20 20 ai 13 08 08 FA la 8 [place] bl LY e DR UG GARCIA 00 08 08 00 20 10 SO 29 No Ac LF 60 -1 -2 .0 PE 05 t ti AM 35 2- 8- 00 RS 67 Av ve ET 78 20 20 ai HO 12 08 08 FA la XA 8 NY bl ZO LY e LE -T DR MP UG DS TA BL ET UT 37 07 08 01 56 28 SO 28 No Ac IL 00 -0 -2 .0 PE 78 t ti OS 00 7- 8- 00 RS 89 Av ve EC 45 20 20 ai 50 08 08 FA la OT 4 NY bl C LY e [address] UG MG TA BL ET PE 45 07 08 00 60 1 SO 28 No Ac RM 80 -1 -0 .0 PE 86 t ti ET 20 6- 1- 00 RS 97 Av ve HR 26 20 20 ai IN 93 08 08 FA la 7 NY bl 5% LY e CR DR EA [...] 20 08 08 FA la NE 2 NY bl LY e ER DR 20 UG 0 MG TA BL ET LI 00 10 07 00 30 30 SO 26 No Ac PI 07 -2 -1 .0 PE 59 t ti TO 10 9 7- RS 29 Av ve R 15 20 20 ai 40 72 07 08 FA la 3 NY bl MG LY e TA DR BL UG ET UT 37 07 07 00 56 28 SO 28 No Ac IL 00 -0 -1 .0 PE 78 t ti OS 00 7- 7- 00 RS 89 Av ve EC 45 20 20 ai 50 08 08 FA la OT 4 NY bl C LY e [address] [...] 71 08 08 FA la IN 0 NY bl E LY e HC L DR 25 UG MG TA B TR 65 06 07 00 90 30 SO 28 No Ac AM 16 -2 -0 .0 PE 69 t ti AD 20 3- 3- 00 RS 86 Av ve OL 62 20 20 ai 75 08 08 FA la HC 0 NY bl L LY e 50 DR MG UG TA BL ET UT 37 03 06 02 56 28 SO 28 No Ac IL 00 -2 -1 .0 PE 02 t ti OS 00 7- 2- 00 RS 17 Av ve EC 35 20 20 ai 90 08 08 FA la OT 7 NY bl C LY e [address] UG MG TA BL ET TH 50 04 06 02 60 30 SO 28 No Ac EO 11 -0 -1 .0 PE 10 t ti PH 10 8- 2- 00 RS 88 Av ve YL 48 20 20 ai LI 20 08 08 FA la NE 2 NY bl LY e ER DR 20 UG 0 MG TA BL ET LI 00 02 06 03 30 30 SO 27 No Ac PI 07 -2 -1 .0 PE 67 t ti TO 10 2 00 RS 83 Av ve R 15 20 20 ai 40 72 08 08 FA la 3 NY bl MG LY e TA DR BL [...] 40 72 08 08 FA la 3 NY bl MG LY e TA DR BL UG ET TH 50 04 05 01 60 30 SO 28 No Ac EO 11 -0 -2 .0 PE 10 t ti PH 10 8 RS 88 Av ve YL 48 20 20 ai LI 20 08 08 FA la NE 2 NY bl LY e ER DR 20 UG 0 MG TA BL ET UT 37 03 05 01 56 28 SO 28 No Ac IL 00 -2 -2 .0 PE 02 t ti OS 00 7 2 RS 17 Av ve EC 45 20 20 ai 50 08 08 FA la OT 3 NY bl C LY e [address] UG MG TA BL ET BE 68 04 04 00 20 20 SO 28 No Ac NZ 38 -0 -2 .0 PE 10 t ti ON 20 8 00 RS 89 Av ve AT 24 20 20 ai AT 80 08 08 FA la E 1 NY bl 20 LY e [address] UG CA PS UL E TH 50 04 04 00 60 30 SO 28 No Ac EO 11 -0 -2 .0 PE 10 t ti PH 10 8- 4 00 RS 88 Av ve YL 48 20 20 ai LI 20 08 08 FA la NE 2 NY bl LY e ER DR 20 UG 0 MG TA BL ET 00 04 04 00 21 6 SO 28 No Ac 55 -0 -2 .0 PE 10 t ti 50 8- 4- 00 RS 85 Av ve 30 20 20 ai 13 08 08 FA la 8 [place] bl LY e DR UG AZ 00 04 04 00 6. 5 SO 28 No Ac IT 78 -0 -2 00 PE 10 t ti HR 11 8- 4- 0 RS 86 Av ve OM 49 20 20 ai YC 66 08 08 FA la IN 8 NY bl LY e [address] MG UG TA BL ET 63 04 04 00 12 30 SO 28 No Ac 82 -0 -2 0. PE 10 t ti 40 8- 4- 00 RS 87 Av ve 00 20 20 0 ai 81 08 08 FA la 0 NY bl LY e DR UG UT 37 03 04 00 56 28 SO 28 No Ac IL 00 -2 -1 .0 PE 02 t ti OS 00 7- 0- 00 RS 17 Av ve EC 45 20 20 ai 50 08 08 FA la OT 3 NY bl C LY e [address] UG MG TA BL ET LI 00 02 04 01 30 30 SO 27 No Ac PI 07 -2 -1 .0 PE 67 t ti TO 10 1- 0- 00 RS 83 Av ve R 15 20 20 ai 40 72 08 08 FA la 3 NY bl MG LY e TA DR BL UG ET 66 01 04 01 30 30 YO 15 No Ac 79 -2 -0 0. UR 36 t ti 40 8- 7- 00 1 Av ve 00 20 20 0 PH ai 26 08 08 AR la 0 MA bl CY e UT 37 01 03 01 56 28 SO 27 No Ac IL 00 -1 -2 .0 PE 26 t ti OS 00 4- 6- 00 RS 51 Av ve EC 45 20 20 ai 50 08 08 FA la OT 3 NY bl C LY e [address] UG MG TA BL ET LI 00 02 03 00 30 30 SO 27 No Ac PI 07 -2 -2 .0 PE 67 t ti TO 10 1- 6- 00 RS 83 Av ve R 15 20 20 ai 40 72 08 08 FA la 3 NY bl MG LY e TA DR BL [...] 40 72 07 08 FA la 3 NY bl MG LY e TA DR CHRISTOS UG ET UT 37 01 03 00 56 28 SO 27 No Ac IL 00 -1 -2 .0 PE 26 t ti OS 00 RS 51 Av ve EC 45 20 20 ai 50 08 08 FA la OT 3 NY bl C LY e [address] [...] No REGAN 2-20 DOMONIQUE DOMONIQUE VACC 11 CEICLIA INE SPLI T VIRU CECILIA S 0.5 ML DOSA GE IM USE Procedures Procedure DOS Code Location Performer Comment O2 CONC 1 E1390 NAOMIE AKBAR LONGS [facility] 7 HOME HOME 85%/>02 [facility] CON[facility] AT [facility] FLW RATE DRUG TEST G0481 [facility] DEFINITV [address] ID INC INC METH P DAY 8-14 DRUG CL DRUG TEST 13422 [facility] PRSMV 7 [facility] QUAL DIR INC INC OPTICAL OBS PER DAY O2 CONC 1 E1390 NAOMIE AKBAR [facility]LY [facility] PORT 7 HOME HOME 85%/>02 [facility] FLW RATE COLLECTIO 49031 [facility] N VENOUS [address] [place] [address] [facility] [id number] [facility] OBSERVATI [address] [place] [address] HOSPITAL SERVICE PER HOUR INJECTION J0692 [facility] CEFEPIME [address] [place] [address] HYDROCHLO RIDE 500 MG BASIC 91867 [facility] METABOLIC [address] [place] [address] CALCIUM TOTAL THER 20381 [facility] PROPH/DX [address] [place], [place] [address]X [facility] SEQL IV PUSH SBST/DRUG FAC INFUSION J7030 [facility] NORMAL [address] [place] [address] SOLUTION 1000 CC THERAPEUT 28652 [facility] IC [address] [place] [address] TIC/DX INJECTION SUBQ/IM INJECTION J1644 [facility] HEPARIN [address] [place] [address] PER 1000 UNITS OBSERVATI 45313 [facility] ON CARE 7 W [address] MANAGEMEN T BLOOD 78557 [facility] COUNT [address] [place] [address] AUTO&AUTO DIFRNTL WBC THERAPEUT 51439 [facility] IC [address] [place] [address] IV PUSH EACH NEW DRUG INJ J2930 [facility] METHYLPRD [address] [place] [address] SODIUM SUCCNAT TO 125 [place] [address] [facility] INFUSION [address] [place] [address] THERAPY/P [facility] ROPHYLAXI S /DX 1ST TO 1 HR INJ J2930 [facility] METHYLPRD [address] [place] [address] SODIUM SUCCNAT TO 125 MG INITIAL 32120 [facility] OBSERVATI 7 W N ON HOSPITALI CARE/DAY [address] [place] [address] [facility] TROPONIN [address] [place] [address] [place] BLOOD 02322 [facility] COUNT [address] [place] [address] AUTO&AUTO DIFRNTL WBC INJECTION J1644 [facility] HEPARIN [address] [place] [address] PER 1000 UNITS THERAPEUT 53872 [facility] IC [address] [place] [address] TIC/DX INJECTION SUBQ/IM ECG 19528 [facility] ROUTINE [address] [place] [address] W/LEAST 12 LDS TRCG ONLY W/O I&R INFUSION J7030 [facility] NORMAL [address] [place] [address] SOLUTION [address] [place] [address] [facility] INFUSION [address] [place] [address] PROPHYLAX IS/DX EA HOUR THER 72158 [facility] PROPH/DX [address] [place] [address] NJX [facility] SEQL IV PUSH SBST/DRUG FAC BASIC 65705 [facility] METABOLIC [address] [place] [address] [place] [address] [facility] MAGNESIUM [address] [place] [address] INJECTION J0692 [facility] CEFEPIME [address] [place] [address] HYDROCHLO RIDE 500 MG COLLECTIO 40727 [facility] N VENOUS [address] [place] [address] VENIPUNCT URE SMR PRIM 50391 [facility] SRC [address] [place] [address]/[facility] SA STAIN BCT FUNGI/ROZINA L CUL BACT 70432 [facility] XCPT [address] [place] [address] BLOOD/STO OL AEROBIC ISOL CULTURE 05192 [facility] BACTERIAL [address] [place] [address] QUANTTAT[place] [address] [facility] LACTATE [address] [place] [address] CULTURE 29289 [facility] BACTERIAL [address] [place] [address] AEROBIC W/ID ISOLATES COLLECTIO 47691 [facility] N VENOUS [address] [place] [address] VENIPUNCT URE INJECTION J0692 [facility] CEFEPIME [address] [place] [address] HYDROCHLO RIDE 500 MG COMPREHEN 00234 [facility] SIVE [address] [place] [address] [place] [address] [facility] OSMOLALIT [address] [place] [address] [place] [address] [facility] URINE [address] [place] [address] BLOOD 96940 [facility] GASES ANY [address] [place] [address] COMBINATI ON PH PCO2 PO2 CO2 HCO3 CORTISOL 21731 [facility] TOTAL [address] [place] [address] ECG 45996 [facility] ROUTINE [address] [place] [address] W/LEAST 12 LDS TRCG ONLY W/O I&R INFUSION J7030 [facility] NORMAL [address] [place] [address] SALINE [facility] SOLUTION 1000 CC THERAPEUT 02089 [facility] IC [address] [place] [address] PROPHYLAC [facility] TIC/DX INJECTION SUBQ/IM INJECTION J1644 [facility] HEPARIN [address] [place] [address] SODIUM [facility] PER 1000 UNITS INJECTION J1956 [address] LEVOFLOXA [facility] RENETTA 250 MG BLOOD 03352 [facility] COUNT [address] [place] [address] COMPLETE [facility] AUTO&[place] [address] [facility] TROPONIN [address] [place] [address] QUANTITAT [facility] [place] TOBACCO 21523 [facility] USE [address] [place] [address] CESSATION [facility] INTENSIVE >10 MINUTES URNLS DIP [address] STICK/TAB [facility] LET REAGENT AUTO MICROSCOP Y PRESSURIZ 31747 [facility] ED/NONPRE [address] [place] [address] SSURIZED [facility] INHALATIO N TREATMENT INJ J2930 [facility] METHYLPRD [address] [place] [address] NISOLONE [facility] SODIUM SUCCNAT TO 125 MG ECG 89289 [facility] ROUTINE 7 DESIRE ECG EMERGENCY W/LEAST PHYS 12 LDS I&R ONLY RADIOLOGI 74726 [facility] C EXAM 7 EIDER CHEST 2 RADIOLOGY VIEWS ASSOCIAT FRONTAL&L ATERAL DRUG TEST 46541 [facility] PRSMV 7 MEM H[facility] MEM HOSP QUAL DIR INC INC OPTICAL OBS PER DAY O2 CONC 1 E1390 NAOMIE [facility] 7 HOME HOME 85%/>02 MEDICAL MEDICAL CONC AT EQUIPME EQUIPME PRSC FLW RATE DRUG TEST 87292 [facility] D[facility] PRSMV 7 MEM HOSP MEM HOSP QUAL DIR [place] [address] [facility] [address] CLINIC ATTENUATI ON WHOLE BODY FLUORODEO A9552 [facility] XYGLUCOSE 7 Y MEDICAL F-18 FDG CLINIC DX UP TO 45 MCI SBSQ 43343 [facility] 7 NE HEALTH CARE/DAY MEDICAL 35 G MINUTES INITIAL 53476 [facility] INPATIENT 7 NE HEALTH CONSULT MEDICAL NEW/ESTAB G PT 80 [place] [address] [facility] STENT CRV 7 NE HEALTH CRTD ART MEDICAL EMBOLIC G PROTECJ RADIOLOGI 01813 [facility] EX[facility] 7 RADIOLOGY LD IV CHEST 2 VIEWS FRONTAL&L ATERAL ECG 65936 [facility] ROUTINE 7 NE HEALTH ECG MEDICAL W/LEAST G 12 LDS I&R ONLY GROUND A0425 [facility] MILEAGE [address] [place] [address] PER AMBULANCE AMBULANCE STATUTE MILE AMB A0427 [facility] SERVICE [address] [place] [address] ALS AMBULANCE AMBULANCE EMERGENCY TRANSPORT LEVEL 1 DUPLEX 27107 [facility] SCAN 7 E[facility]ER EXTRACRAN RADIOLOGY IAL ART ASSOCIAT COMPL BI STUDY INITIAL 08219 [facility] YUE INPATIENT 7 NE HEALTH CONSULT MEDICAL NEW/ESTAB [place] [address] [place] [address] [facility] ABDOMEN & 7 E[facility]ER PELVIS RADIOLOGY W/[place] [address] [facility] HEAD/BRAI 7 EIDER N W/O RADIOLOGY CONTRAST ASSOCIAT MATERIAL ECG 15046 [facility] ROUTINE 7 DESIRE ECG EMERGENCY W/LEAST PHYS 12 LDS I&R ONLY RADIOLOGI 67329 [facility] C EXAM 7 E[facility] CHEST 2 RADIOLOGY VIEWS ASSOCIAT FRONTAL&L ATERAL O2 CONC 1 E1390 NAOMIE G[facility]ON 7 HOME HOME 85%/>02 MEDICAL MEDICAL CONC AT EQUIPME EQUIPME [facility] [place] SOFT [address] [facility] TISSUE 7 NECK RADIOLOGY W/CONTRAS ASSOCIAT T MATERIAL LOCM Q9967 [facility] 300-[address] [place] [address] MG/ML HOSPITAL HOSPITAL IODINE CONCENTRA TION PER ML LOCM Q9967 [facility] 300-[address] [place] [address] MG/ML [facility] [place] [address] [facility] ABDOMEN & 7 [facility] HOSP[facility] W/CONTRAS T MATERIAL [place] THORAX 16672 [facility] [address] [place] [address] W/[facility] HOSPITAL T MATERIAL ADMN SET A7005 NAOMIE AKBAR W/SM VOL 7 HOME HOME NONFILTR MEDICAL MEDICAL NEBULIZR EQUIPME EQUIPME NON-DISPB L DRUG TEST G0481 [facility] DEFINITV [address] ID INC INC METH P DAY 8-14 DRUG CL DRUG TEST 34944 [facility] PRSMV 7 [facility] QUAL DIR INC INC OPTICAL OBS PER DAY LACTATE 78103 [facility] DEHYDROGE 7 DARRYL DARRYL NASE [facility] COMPREHEN 58206 [facility] SIVE 7 DARRYL DARRYL METABOLIC [facility] PANEL BLOOD 35350 [facility] COUNT 7 DARRYL DARRYL COMPLETE [facility] AUTO&AUTO DIFRNTL WBC O2 CONC 1 E1390 NAOMIE AKBAR DEL [place] 7 HOME HOME 85%/>02 MEDICAL MEDICAL CONC AT EQUIPME EQUIPME PRSC FLW RATE DRUG TEST G0481 [facility] DY[facility] DEFINITV [address] ID INC INC METH P DAY 8-14 DRUG CL DRUG TEST 45299 [facility] DY[facility] PRSMV 7 [facility] QUAL DIR INC INC OPTICAL OBS PER DAY DRUG TEST G0480 [facility] DY[facility] DEFINITV [address] ID INC INC METH P DAY 1-7 DRUG CL DEBRIDEME 81743 [facility] NT OPEN 7 DESIRE WOUND 20 EMERGENCY SQ CM/< [facility]105 [facility] MINIMUM 3 RADIOLOGY VIEWS ASSOCIAT TDAP 93462 [facility] VACCINE [address] [place] [address] YRS/> IM HOSPITAL HOSPITAL REPAIR 58813 [facility] INTERMEDI 7 DESIRE ATE EMERGENCY N/H/F/XTR PHYS NL GENT 2.6-7.5 CM O2 CONC 1 E1390 NAOMIE AKBAR [place] 7 HOME HOME 85%/>02 MEDICAL MEDICAL CONC AT EQUIPME EQUIPME [facility] [place] [address] [facility] [address] [place] [address] [place] [address] [facility] [address] [place] [address] HOSPITAL IAADIADOO [id number] INFLUENZA [facility] COLLECTIO 87556 [facility] N VENOUS [address] [place] [address] VENIPUNCT URE CULTURE 06367 [facility] BACTERIAL [address] [place] [address] AEROBIC W/[place] [address] [facility] HEAD/BRAI [address] [place] [address] W/O [facility] [place] [address] [facility] INFUSION [address] [place] [address] HYDRATION [facility] EACH ADDITIONA L HOUR INJECTION [id number] [facility] H[facility] PER 1 MG GENERAL [address]293 [facility] [address] [place] [address] HOSPITAL ECG 86780 [facility] ROUTINE [address] [place] [address] HOSPITAL W/LEAST 12 LDS TRCG ONLY W/O I&R DRUG TEST 88857 [facility] PRSMV [address] [place] [address] [facility] CHEMISTRY ANALYZERS INFUSION J7030 [facility] NORMAL [address] [place] [address] SOLUTION 1000 CC DRUG TEST G0480 [facility] DEFINITV [address] [place] [address] DR [facility] HOSPITAL METH P [place] 1-[place] [address] [facility] LIPASE [address] [place] [address] [place] [address] [facility] MAGNESIUM [address] [place] [address] HOSPITAL RADIOLOGI 10018 [facility] C EXAM [address] [place] [address] CHEST 2 [facility] VIEWS FRONTAL&L ATERAL ECG 90529 [facility] C[facility]TRAL ROUTINE 7 DESIRE ECG EMERGENCY W/LEAST PHYS 12 LDS I&R ONLY URNLS DIP [address] STICK/TAB [facility] LET [place] [address] [facility] TROPONIN [address] [place] [address] [facility] [place] THER 63548 [facility] PROPH/DX [address] [place] [address] NJX [facility]PITAL PUSH SINGLE/1S T SBST/DRUG DRUG 32694 G[facility] DY[facility] SCREENING 7 [facility] OPIOIDS INC INC & OPIATE ANALOGS 5/MORE DRUG TEST 60154 [facility] D[facility] PRSMV 7 [facility] QUAL DIR INC INC OPTICAL OBS PER DAY NJX 20462 [facility] D[facility] DX/THER 7 [facility] AGT PVRT INC INC FACET JT LMBR/SAC 1 LEVEL NJX 35381 [facility] D[facility] DX/THER 7 [facility] AGT PVRT INC INC FACET JT LMBR/SAC 2ND LEVEL O2 CONC 1 E1390 NAOMIE AKBAR DEL PORT 7 HOME HOME 85%/>02 MEDICAL MEDICAL CONC AT EQUIPME EQUIPME PRSC FLW RATE PPSV23 33238 [facility] VACCINE 2 7 PHYSICIAN YRS OR S GROUP OLDER FOR SUBQ/IM USE CYANOCOBA 14920 [facility] D[facility] JENNY 7 [facility] VITAMIN INC INC B-12 DRUG TEST 74887 [facility] PRSMV 7 [facility] QUAL DIR INC INC OPTICAL OBS PER DAY DRUG TEST G0480 [facility] DEFINITV [address] ID INC INC METH P DAY 1-7 DRUG CL DRUG TEST G0481 [facility] DEFINITV [address] ID INC INC METH P DAY 8-14 DRUG CL DRUG TEST 07836 [facility] PRSMV 7 [facility] QUAL DIR INC INC OPTICAL OBS PER DAY LACTATE 65747 [facility] DEHYDROGE 7 DARRYL DARRYL NASE LDH [facility] HOLDINGS COMPREHEN 23190 [facility] D[facility] SIVE 7 DARRYL DARRYL METABOLIC [place] [address] [facility] MAGNESIUM 7 DARRYL [place] [address] [facility] D[facility] BLOOD/URI 7 DARRYL DARRYL C ACID HOLDINGS HOLDINGS BLOOD 24076 [facility] COUNT 7 DARRYL [...] EQUIPME PRS FLW RATE DRUG TST G0477 GOMZE DYER PRESUMP;C 6 [facility]OS[facility] [...] 85%/>02 MEDICAL MEDICAL CONC AT EQUIPME EQUIPME [facility] FLW RATE DRUG TEST G0481 [...] AT EQUIPME EQUIPME PRS FLW RATE SWALLOWIN 66412 KUSH CURRIE G FUNCJ [address] [place] [address] W/[facility] IOGRAPY/V IDRADIOG MOTION 52168 KUSH CURRIE FLUOR [address] [place] [address] SWLNG FUNCJ C/V REC ADMN SET A7005 NAOMIE AKBAR W/SM VOL 6 HOME HOME NONFILTR MEDICAL MEDICAL NEBULIZR EQUIPME EQUIPME NON-DISPB L BLOOD 21688 [facility] COUNT 6 DARRYL DARRYL COMPLETE HOLDINGS HOLDINGS AUTO&AUTO DIFRNTL WBC NONINVASI 68285 SHERMAN MANZANARES VE 6 [facility]AR[facility]PULSE CLINIC [place] [address] [facility] [id number] 6 [facility] SFERRIN HOLDINGS HOLDINGS COLLECTIO 82041 SHERMAN MANZANARES N VENOUS 6 [facility] [place] [address] [facility] D[facility] FOLIC 6 DARRYL DARRYL [place] [address] [facility] D[facility] IRON 6 DARR[place] [address] [facility] D[facility] ERYTHROPO 6 [facility] IETIN HOLDINGS HOLDINGS LACTATE 14767 [facility] D[facility] DEHYDROGE 6 [facility] NASE LDH HOLDINGS HOLDINGS BLOOD 03057 [facility] COUNT 6 [facility] RETICULOC [place] [address] [facility] D[facility] FERRITIN 6 DARRYL DARRYL HOLDINGS HOLDINGS CYANOCOBA 13139 [facility] D[facility] JENNY 6 [facility] VITAMIN [place] B-12 [place] [address] [address] [address]ABRIEL [address] [place] [address] DYSFUNCTI ON&/ORAL FUNCJ FEEDING INTERROGA 38161 [facility] BRITANY TISTONEY 6 PHYSICIAN MAT EVALUATIO S GROUP N IN PERSON ILR SYSTEM ECG 14834 G[facility] DYER ROUTINE 6 [facility] ECG INC INC W/LEAST 12 LDS TRCG ONLY W/O [place] [address] [address]USH [address]ABRIEL [address] [place] [address] DYSFUNCTI ON&/ORAL FUNCJ FEEDING HOS BED E0260 NAOMIE AKBAR SEMI-ELEC 6 HOME HOME W/ANY MEDICAL MEDICAL TYPE SIDE EQUIPME EQUIPME RAIL W/MATTRSS PRESSURIZ 33324 [facility] ED/NONPRE [address] [place] [address] INHALATIO N TREATMENT CYANOCOBA 69152 [facility] JENNY [address] [place] [address] B-12 [place] [address] [facility] FERRITIN [address] [place] [address] IRON 89057 [facility] BINDING [address] [place] [address] BASIC 13323 [facility] METABOLIC [address] [place] [address] [place] [address] [facility] IRON [address] [place] [address] [place] [address] [facility] FOLIC [address] [place] [address] SERUM O2 CONC 1 E1390 NAOMIE AKBAR DEL PORT 6 HOME HOME 85%/>02 MEDICAL MEDICAL CONC AT EQUIPME EQUIPME PRSC FLW RATE PRESCRIPT J8499 [facility] ION DRUG [address] [place] [address] [place] [address] [facility] INFUSION [address] [place] [address] [place] AD[place] [address] [facility] INFUSION [address] [place] [address] INITIAL 31 MIN-[address] [place] [address] [facility] HEAD/BRAI [address] [place] [address] W/O [facility] CONTRAST MATERIAL HOSPITAL G0378 [facility] OBSERVATI [address] [place] [address] ON HOSPITAL [place] [address] [facility] FREE [address] [place] [address] [place] [address] [facility] LACTATE [address] [place] [address] COLLECTIO 00099 [facility] N VENOUS [address] [place] [address] VENIPUNCT URE ECG 00558 [facility] ROUTINE [address] [place] [address] W/LEAST 12 LDS TRCG ONLY W/O I&R GENERAL [address] INFUSION J7030 KUSH CURRIE NORMAL [address] [place] [address] SOLUTION 1000 [place] [address] KUSH CURRIE MAGNESIUM [address] [place] [address] CREATINE 73352 KUSH CURRIE KINASE [address] [place] [address] ECG 57028 [facility] C[facility]TRAL ROUTINE 6 DESIRE PHI ECG EMERGENCY W/LEAST PHYS 12 LDS I&[place] [address] KUSH CURRIE TROPONIN [address] [place] [address] [place] 21855 [facility] C[facility]TRAL CARE 6 DESIRE PHI ILL/INJUR EMERGENCY ED PHYS PATIENT INIT 30-[address] [place] [address] KUSH GABRIEL [address] [place] [address] DYSFUNCTI ON&/[place] [address] KUSH GABRIEL [address] [place] [address] DYSFUNCTI ON&/[place] [address] KUSH GABRIEL [address] [place] [address] DYSFUNCTI ON&[place] [address] CURRIETAMI GABRIEL [address] [place] [address] DYSFUNCTI ON&/[place] [address] [address]USH GABRIEL [address] [place] [address] DYSFUNCTI ON&/[place] [address] CURRI[address]AMI GABRIEL [address] [place] [address] DYSFUNCTI ON&/ORAL FUNCJ FEEDING MRI 03380 [place] [facility] SPINAL 6 MEDICAL DEMARCUS CANAL IMAGING LUMBAR ASS W/O CONTRAST MATERIAL 3D 16839 [place] [facility] RENDERING 6 MEDICAL DEMARCUS W/INTERP IMAGING & ASS POSTPROCE SS SUPERVISI ON RADIOLOGI 51847 [place] OPAL C 6 MEDICAL EXAMINATI IMAGING ON EYE ASS DETECT FOREIGN BODY ECG 25426 [facility] D[facility] ROUTINE 6 [facility] ECG INC INC W/LEAST 12 LDS TRCG ONLY W/O I&[place] [address] KUSH GABRIEL [address] [place] [address] DYSFUNCTI ON&/ORAL FUNCJ FEEDING PET 46592 RUSSELLMAHSAGILES MANZANARES IMAGING 6 [facility] CLINIC ATTENUATI ON WHOLE BODY FLUORODEO A9552 SHERMAN MANZANARES XYGLUCOSE 6 [facility] F-18 FDG CLINIC DX UP TO 45 [place] [address] KUSH GABRIEL [address] [place] [address] DYSFUNCTI ON&/ORAL FUNCJ FEEDING HOS BED E0260 NAOMIE AKBAR SEMI-ELEC 6 HOME HOME W/ANY MEDICAL MEDICAL TYPE SIDE EQUIPME EQUIPME RAIL W/[place] [address] KUSH GABRIEL [address] [place] [address] DYSFUNCTI ON&/ORAL FUNCJ FEEDING O2 CONC 1 E1390 NAOMIE AKBAR DEL PORT 6 HOME HOME 85%/>02 MEDICAL MEDICAL CONC AT [place] [address] KUSH GABRIEL [address] [place] [address] DYSFUNCTI ON&/ORAL FUNCJ FEEDING LACTATE 23954 [facility] DEHYDROGE 6 DARRYL DARRYL NASE L[facility] HOLDINGS COMPREHEN 30413 [facility] SIVE 6 DARRYL DARRYL METABOLIC HOLDINGS HOLDINGS PANEL BLOOD 52059 [facility] COUNT 6 DARRYL DARRYL COMPLETE HOLDINGS HOLDINGS AUTO&[place] [address] [address]USH GABRIEL [address] [place] [address] DYSFUNCTI ON&/[place] [address] KUSH GABRIEL [address] [place] [address] DYSFUNCTI ON&[place] [address] [address]USH [address]ABRIEL [address] [place] [address] DYSFUNCTI ON&/ORAL FUNCJ FEEDING DRUG TST G0477 [facility] DYER PRESUMP;C 6 [facility] PBL BEING INC INC READ DC OPT OBV ONLY DRUG TEST G0481 [facility]OMEZ DYER DEFINITV [address] ID INC INC METH P DAY 8-[place] [address] KUSH GABRIEL 6 [facility] DYSFUNCTI ON&/[place] [address] KUSH CURRIE SWALLOWIN 6 [facility] DYSFUNCTI ON&/[place] [address] KUSH GABRIEL 6 [facility] DYSFUNCTI ON&/[place] [address] KUSH GABRIEL 6 [facility] DYSFUNCTI ON&/ORAL FUNCJ FEEDING DUPLEX 04446 GOMEZ GOMEZ SCAN 6 [facility] HOSP EXTRACRAN INC INC IAL ART COMPL BI STUDY HOS BED E0260 NAOMIE AKBAR SEMI-ELEC 6 HOME HOME W/ANY MEDICAL MEDICAL TYPE SIDE EQUIPME EQUIPME RAIL W/MATTRSS O2 CONC 1 E1390 NAOMIE AKBAR DEL PORT 6 HOME HOME 85%/>02 MEDICAL MEDICAL CONC AT EQUIPME EQUIPME PRSC FLW RATE INTERROGA 28728 [facility] BRITANY STERLING 6 PHYSICIAN MAT EVALUATIO S GROUP N IN PERSON ILR SYSTEM ECG 06676 GOMEZ GOMEZ ROUTINE 6 [facility] ECG INC INC W/LEAST 12 LDS TRCG ONLY W/O I&R HOS BED E0260 NAOMIE AKBAR SEMI-ELEC 6 HOME HOME W/ANY MEDICAL MEDICAL TYPE SIDE EQUIPME EQUIPME RAIL W/MATTRSS O2 CONC 1 E1390 NAOMIE AKBAR DEL PORT 6 HOME HOME 85%/>02 MEDICAL MEDICAL CONC AT EQUIPME EQUIPME PRSC FLW RATE DIRECT G0299 ST EDENILSON CASTELLANO RN 6 [facility]/ SUPERVISING APPRAISER SUPERVISING APPRAISER SPICE SET EA 15 MIN LACTATE 99291 [facility] DEHYDROGE 6 DARRYL DARRYL NASE [facility]INGS COMPREHEN 77196 [facility] SIVE 6 DARRYL DARRYL METABOLIC HOLDINGS HOLDINGS PANEL BLOOD 33250 [facility] COUNT 6 DARRYL DARRYL COMPLETE HOLDINGS HOLDINGS AUTO&AUTO DIFRNTL WBC DIRECT G0299 ST EDENILSON CASTELLANO RN 6 [facility]/HO SUPERVISING APPRAISER SUPERVISING APPRAISER SPICE SET EA [address] EDENILSON CASTELLANO RN [address] [facility] SPICE SET EA 15 MIN HOME [place]; S9341 INFUSION INFUSION ENTERAL 6 PARTNERS PARTNERS NUTRITION OF OF [place]IA [place] GRAVITY; BUSINESS SERVICES ANALYST ENTRAL F B4152 INFUSION INFUSION NUTRITION 6 PARTNERS PARTNERS CMPL VASQUEZ OF OF DENSE [place] INTACT NUTRNTS INTERROGA 31232 [facility] BRITANY TION 6 PHYSICIAN MAT EVALUATIO S GROUP N IN PERSON ILR SYSTEM DIRECT G0299 ST EDENILSON CASTELLANO RN [address] [facility] SPICE SET EA 15 MIN HOS BED E0260 NAOMIE AKBAR SEMI-ELEC 6 HOME HOME W/ANY MEDICAL MEDICAL TYPE SIDE EQUIPME EQUIPME RAIL W/MATTRSS O2 CONC 1 E1390 NAOMIE AKBAR DEL PORT 6 HOME HOME 85%/>02 MEDICAL MEDICAL CONC AT EQUIPME EQUIPME PRSC FLW RATE DIRECT G0299 ST EDENILSON CASTELLANO RN [address] [facility] SPICE SET EA 15 MIN COLLECTIO 32951 GOMEZ DYER N VENOUS 6 [facility] BLOOD INC INC VENIPUNCT URE BASIC 36612 GOMEZ DYER METABOLIC 6 [facility] PANEL INC INC CALCIUM TOTAL RADIOLOGI 98162 GOMEZ DYER C 6 [facility] EXAMINATI INC INC ON CHEST [place] FRONTAL BLOOD 01677 GOMEZ DYER COUNT 6 [facility] COMPLETE INC INC AUTO&AUTO DIFRNTL WBC DIRECT G0299 ST EDENILSON CASTELLANO RN [address] [facility] SPICE SET EA 15 MIN SBSQ 10484 [facility] 6 MEDICAL CARE/DAY SERV 25 FOUNDATIO MINUTES N ENTRAL F B4152 INFUSION INFUSION NUTRITION 6 PARTNERS PARTNERS CMPL [place] [address] [facility] RETROPERI 6 MEDICAL ADR TONEAL SERV REAL TIME FOUNDATIO W/IMAGE N COMPLETE HOME [place]; S9341 INFUSION INFUSION ENTERAL 6 PARTNERS PARTNERS NUTRITION OF OF [place] GRAVITY; BUSINESS SERVICES ANALYST ADDITIVE B4104 INFUSION INFUSION FOR 6 PARTNERS PARTNERS ENTERAL OF OF [place] RADIOLOGI 70717 [place] OCONNELL [facility] C 6 MEDICAL EXAMINATI SERV ON CHEST FOUNDATIO SINGLE N VIEW FRONTAL CYTP 61799 [facility] SLCTV 6 Y OF ОЛЕГ CELL [place] [facility] NT INTERP[place] XCP[place] C/[place] [address] [facility] SURG 6 Y OF ОЛЕГ PATHOLOGY [place] [facility] GROSS&KAMILA ROSCOPIC EXAM THORACENT 67316 [place] RAISSI ESIS 6 MEDICAL DRI NEEDLE/CA SERV TH PLEURA FOUNDATIO N W/IMAGING SBSQ 12658 [facility] 6 MEDICAL OS CARE/DAY SERV 25 FOUNDATIO MINUTES N SBSQ 17370 [facility] 6 MEDICAL OS CARE/DAY SERV 25 FOUNDATIO MINUTES N SBSQ 41186 [place] [address] MEDICAL OS ROZINA CARE/DAY SERV 25 FOUNDATIO MINUTES N SBSQ 01286 [facility] 6 MEDICAL OS ROZINA CARE/DAY SERV 25 FOUNDATIO MINUTES N INITIAL 33292 [facility] 6 DESIRE A RIVAS CARE/DAY PHYSICIAN 70 SERVI MINUTES SWALLOWIN 82847 [place] PEREZ LUGO 6 MEDICAL SCO W/CINERAD SERV IOGRAPY/V FOUNDATIO IDRADIOG N CT THORAX 08416 [place] PHILIP ALL 6 MEDICAL W/CONTRAS IMAGING T ASS MATERIAL RADIOLOGI 36845 [place] PHILIP ALL C EXAM 6 MEDICAL CHEST 2 IMAGING VIEWS ASS FRONTAL&L ATERAL ECG 62824 [place] YUNIOR ROUTINE 6 MEDICAL NAN ECG SERV W/LEAST FOUNDATIO 12 LDS N I&R ONLY HOSPITAL 09195 [facility] 6 DESIRE IRM DAY PHYSICIAN MANAGEMEN SERVI T > 30 MIN SBSQ 73055 [facility] 6 DESIRE IRM CARE/DAY PHYSICIAN 25 SERVI MINUTES SBSQ 49189 [facility] 6 DESIRE IRM CARE/DAY PHYSICIAN 25 SERVI MINUTES SBSQ 08146 [facility] 6 DESIRE IRM CARE/DAY PHYSICIAN 25 SERVI MINUTES INITIAL 83295 [facility] 6 DESIRE IRM CARE/DAY PHYSICIAN 70 SERVI MINUTES O2 CONC 1 E1390 NA[place]IE [place] [address] HOME HOME 85%/>02 [facility]ICAL [facility] DRUG TST G0477 GOMEZ DYER PRESUMP;C 6 [facility] PBL BEING INC INC READ DC OPT OBV ONLY O2 CONC 1 E1390 [place]IE [place] [address] HOME HOME 85%/>02 MEDICAL MEDICAL CONC AT EQUIPME [facility] FLW RATE DRUG TST G0477 GOMEZ DYER [...] DRUG CL O2 CONC 1 E1390 [place] [address] HOME HOME 85%/>02 MEDICAL MEDICAL CONC AT EQUIPME [facility] FLW RATE DRUG TST G0477 GOMEZ DYER PRESUMP;C 6 [facility] PBL BEING INC INC READ DC OPT OBV ONLY INTERROGA 01488 [facility] BRITANY TION 5 CULAR MAT EVALUATIO CONSULTAN N IN TS O PERSON ILR SYSTEM INTERROGA 05917 [facility] BRITANY TION 5 CULAR MAT EVALUATIO CONSULTAN N IN TS O PERSON ILR SYSTEM O2 CONC 1 E1390 NAOMIE [facility] 5 HOME HOME 85%/>02 MEDICAL MEDICAL CONC AT [facility] FLW [facility] ECG 95059 GOMEZ DYER ROUTINE 5 [facility] ECG INC INC W/LEAST 12 LDS TRCG ONLY W/O I&R ECG 16092 CARDIOVAS BRITANY ROUTINE 5 CULAR MAT ECG CONSULTAN W/LEAST TS O 12 LDS I&R ONLY INTERROGA 40140 CARDIOV[facility] BRITANY TION 5 CULAR MAT EVALUATIO CONSULTAN N IN TS O PERSON ILR SYSTEM O2 CONC [address] [facility] 5 HOME HOME 85%/>02 [facility]ICAL MEDICAL [facility] FLW [facility]ATE INJECTION J0696 GOMEZ HICKMAN 5 [facility] NE SODIUM PER 250 MG THERAPEUT 04892 GOMEZ HICKMAN IC 5 [facility] TIC/DX INJECTION SUBQ/ HOSPITAL 14396 [facility] [employer] 5 DESIRE DAY PHYSICIAN MANAGEMEN SERVI T > 30 MIN SBSQ 63840 [facility] 5 [facility] CARE/DAY CLINIC 35 MINUTES SBSQ 33485 [facility] 5 DESIRE CARE/DAY PHYSICIAN 25 SERVI MINUTES INITIAL 50918 [facility] 5 [facility] CARE/DAY CLINIC 70 MINUTES INITIAL 30408 [facility] 5 DESIRE CARE/DAY PHYSICIAN 30 SERVI MINUTES RADIOLOGI 45781 [facility] C EXAM 5 NGOZI CHEST 2 RADIOLOGY VIEWS ASSOCIAT FRONTAL&L ATERAL INTERROGA 21385 CARDIOVAS BRITANY TION 5 CULAR MAT EVALUATIO CONSULTAN N IN TS O PERSON ILR SYSTEM ECG 89297 GOMEZ DYER ROUTINE 5 [facility] ECG INC INC W/LEAST 12 LDS TRCG ONLY W/O I&R O2 CONC [address] [facility] 5 HOME HOME 85%/>02 MEDICAL MEDICAL CONC AT EQUIPME [facility] FLW RATE ECG 67701 CARDIOVAS BRITANY ROUTINE 5 CULAR MAT ECG CONSULTAN W/LEAST TS O 12 LDS I&R ONLY LOCM Q9967 GOMEZ DYER 300-399 5 [facility] MG/ML INC INC IODINE CONCENTRA TION PER ML COLLECTIO 03689 GOMEZ DYER N VENOUS 5 [facility] [address] GOMEZ DYER ANGIOGRAP 5 [facility] HY NECK INC INC W/CONTRAS [place] [address] GOMEZ DYER UREA 5 [facility] NITROGEN INC INC QUANTITAT [place] SOFT 42160 [place] PHILIP ALL TISSUE 5 MEDICAL NECK W/O IMAGING & ASS W/CONTRAS T MATERIAL CREATININ 17097 GOMEZ DYER E BLOOD 5 [facility] INC INC PET 42156 [facility] IMAGING 5 Y [facility] CLINIC ATTENUATI ON WHOLE BODY FLUORODEO A9552 [facility] XYGLUCOSE 5 Y [facility] F-18 FDG CLINIC DX UP TO [address] THORAX 73358 [facility] W/O & 5 REGIONAL GLE W/CONTRAS MEDICAL T BELKIS MATERIAL CT SOFT 04626 [facility] TISSUE 5 REGIONAL GLE NECK W/O MEDICAL & BEL[place]IS W/[place] [address] [facility] LAUR[facility] HEAD/BRAI 5 REGIONAL GLE N W/O & MEDICAL W/CONTRAS BELKIS T MATERIAL GENERAL 69204 [facility] HEALTH 5 DARRYL DARRYL PANEL HOLDINGS HOLDINGS CYANOCOBA 35308 [facility] JENNY 5 DARRYL DARRYL VITAMIN HOLDINGS HOLDINGS B-12 LACTATE 76043 LAB [facility] DEHYDROGE 5 DARRYL DARRYL [place] [address] [facility] FOLIC 5 DARRYL DARRYL ACID HOLDINGS HOLDINGS SERUM ECG 40876 CARDIOVAS BRITANY ROUTINE 5 CULAR MAT ECG CONSULTAN W/LEAST TS O 12 LDS I&R ONLY ECG 48383 GOMEZ DYER ROUTINE 5 [facility] ECG INC INC W/LEAST 12 LDS TRCG ONLY W/O I&R O2 CONC 1 E1390 NAOMIE [place] 5 HOME HOME 85%/>02 MEDICAL MEDICAL CONC AT EQUIPME EQUIPME PRSC FLW RATE ECG 47813 GOMEZ DYER ROUTINE 5 [facility] ECG INC INC W/LEAST 12 LDS TRCG ONLY W/O I&R ECG 15801 CARDIOVAS BRITANY ROUTINE 5 CULAR MAT ECG CONSULTAN W/LEAST TS O 12 LDS I&R ONLY DUPLEX 38107 [place] PHILIP ALL SCAN 5 MEDICAL EXTRACRAN IMAGING IAL ART ASS COMPL BI STUDY ECG 65299 CARDIOVAS CARDIOVAS ROUTINE 5 CULAR CULAR ECG CONSULTAN CONSULTAN W/LEAST TS O TS O 12 LDS I&R ONLY ECG 51542 GOMEZ DYER ROUTINE 5 [facility] ECG INC INC W/LEAST 12 LDS TRCG ONLY W/O I&R IMPLANTAT 36756 CARDIOVAS BRITANY ION 5 CULAR MAT PT-ACTIVA CONSULTAN VIVIAN TS O CARDIAC EVENT RECORDER O2 CONC 1 E1390 NAOMIE AKBAR [facility] 5 HOME HOME 85%/>02 [facility] FLW RATE ECG 62173 GOMEZ DYER ROUTINE 5 [facility] ECG INC INC W/LEAST 12 LDS TRCG ONLY W/O I&R ECG 75899 CARDIOVAS BRITANY ROUTINE 5 CULAR MAT ECG CONSULTAN W/LEAST TS O 12 LDS I&R ONLY ECG 35218 CARDIOVAS BRITANY ROUTINE 5 CULAR MAT ECG CONSULTAN W/LEAST TS O 12 LDS W/I&R O2 CONC 1 E1390 [facility] 85%/>02 [facility] [place] [address] GOME[facility] D[facility] THYROXINE 5 [facility] [place] [address] GOME[facility] THYROID 5 [facility] STIMULATI [place] [address] GOMEZ DYER FOLIC 5 [facility] ACID INC INC SERUM COLLECTIO 48201 G[facility] D[facility] N VENOUS 5 [facility] BLOOD INC INC VENIPUNCT URE COMPREHEN 23306 [facility] SIVE 5 [facility] METABOLIC INC INC PANEL CYANOCOBA 82177 [facility] JENNY 5 [facility] VITAMIN INC INC B-12 25 42665 [facility] HYDROXY 5 [facility] INCLUDES INC INC FRACTIONS IF PERFORMED BLOOD 99375 [facility] COUNT 5 [facility] COMPLETE INC INC AUTO&AUTO DIFRNTL WBC BLOOD 46200 MEADOW[facility]IE MEADOWVIE COUNT 5 W W COMPLETE REGIONAL REGIONAL AUTO&AUTO [place] [address] MEADOWVIE MEADOWVIE TROPONIN 5 W W QUANTITAT REGIONAL REGIONAL [place] [facility] CREATINE 79215 MEADOW[facility]IE MEADOWVIE KINASE 5 W W TOTAL REGIONAL REGIONAL MEDICAL MEDICAL COMPREHEN 04684 MEADOWVIE MEADOWVIE SIVE 5 W W METABOLIC REGIONAL REGIONAL PANEL MEDICAL MEDICAL RADIOLOGI 54990 MEADOWVIE MEADOWVIE C 5 W W EXAMINATI REGIONAL REGIONAL ON CHEST MEDICAL MEDICAL SINGLE VIEW FRONTAL INFUSION J7030 MEADOWVIE MEADOWVIE NORMAL 5 W W SALINE REGIONAL REGIONAL SOLUTION [facility]ICAL [place] [address] [place] [address] MEADOWVIE MEADOWVIE HEAD/BRAI 5 W W N W/O REGIONAL [place] [address] MEADOWVIE MEADOWVIE INFUSION 5 W W HYDRATION REGIONAL REGIONAL INITIAL MEDICAL MEDICAL 31 MIN-1 HOUR ECG 17009 MEADOW[facility]IE MEADOWVIE ROUTINE 5 W W ECG REGIONAL REGIONAL W/LEAST MEDICAL MEDICAL 12 LDS TRCG ONLY W/O I&R ECG 24621 [facility] ROUTINE 5 DESIRE TARAH ECG EMERGENCY W/LEAST PHYS 12 LDS [place] [address] [facility] STENT CRV 5 [facility] CRTD ART MEDICAL EMBOLIC G PROTECJ RADIOLOGI 93804 [facility] TIFFANIE Jimenez EXAM 5 RADIOLOGY CAR CHEST 2 VIEWS FRONTAL&L ATERAL PROCEDURE 0040 [facility] ON [address] [place] [address] SINGLE VESSEL INSERTION 0045 [facility] OF [address] VASCULAR STENT PERCUTANE [address] ANGIOPLAS TY EXTRACRAN IAL VESSELS PROCEDURE [address] VESSEL BIFURCATI ON PERCUTANE [address] INSERTION CAROTID [place]ERY STENT([place] [address] [facility] [place] STENT CRV 5 NE [facility] CRTD ART MEDICAL EMBOLIC G PROTECJ SLCTV 06014 [facility] [place] CATH 5 NE [facility] CAROTID/I MEDICAL NNOM ART G ANGIO XTRCRANL ART DUPLEX 56051 [facility] [place] SCAN 5 NE [facility] EXTRACRAN MEDICAL IAL ART G COMPL BI STUDY INJECTION J1040 [facility] FRANCISCO 5 [facility]YSICIAN [facility] METHYLPRE S GROUP DNISOLONE ACETATE 80 MG INJECTION J0696 [facility] FRANCISCO 5 [facility] CEFTRIAXO S GROUP NE SODIUM PER 250 MG THERAPEUT 85065 [facility] IC 5 [facility] PROPHYLAC S GROUP TIC/DX INJECTION SUBQ/IM SBSQ 44686 [facility] 5 CULAR MAT CARE/DAY CONSULTAN 25 TS O MINUTES OBSERVATI 50831 [facility] ON CARE 5 [place] [address] [facility] HEAD/BRAI 5 VENANCIO N W/O RADIOLOGY CONTRAST ASSOCIAT MATERIAL DUPLEX 42730 [facility] SCAN 5 VENANCIO EXTRACRAN RADIOLOGY IAL ART ASSOCIAT COMPL BI STUDY SLCTV 43604 [facility] CATH 5 CULAR MAT INTRNL CONSULTAN CAROTID TS O ART ANGIO INTRCRNL ART [facility] 92500 [facility] CATHJ EA 5 CULAR MAT 1ST ORD CONSULTAN ABDL TS O PEL/LXTR ART BRNCH RADIOLOGI 78279 [facility] C 5 EXAMINATI RADIOLOGY RADIOLOGY ON CHEST ASSOCIAT ASSOCIAT SINGLE VIEW FRONTAL ECG 55697 CARDIOVAS BLACK JAZZMINE ROUTINE 5 CULAR ECG CONSULTAN W/LEAST TS O 12 LDS W/I&R INITIAL 59040 [facility] OBSERVATI 5 VALLEY ABR ON HEART CARE/DAY 70 MINUTES INFUSION J7030 NIKITA SHELTON NORMAL 5 W [facility] SOLUTION MEDICAL MEDICAL 1000 CC INJECTION J3010 NIKITA SHELTON FENTANYL 5 W W [place] [facility] 0.1 MG MEDICAL MEDICAL CATH PLMT 26943 CARDIOVAS BRITANY L HRT & 5 CULAR [...] 1 MG O2 CONC 1 E1390 [facility] 5 HOME HOME 85%/>02 MEDICAL MEDICAL CONC AT E[facility] FLW RATE COMPREHEN 59632 KUSH CURRIE SIVE 5 CO [facility] HOSPITAL PANEL BLOOD 96670 CURRIE CURRIE COUNT 5 CO [facility] AUTO&AUTO DIFRNTL WBC BLOOD 70400 GOMEZ GOMEZ COUNT 5 [facility] COMPLETE INC INC AUTO&AUTO DIFRNTL WBC COMPREHEN 96738 GOMEZ DYER SIVE 5 MEM [facility] METABOLIC INC INC PANEL HEMOGLOBI 36105 GOMEZ DYER N 5 MEM [facility] GLYCOSYLA INC INC VIVIAN A1C ADMN SET A7005 YOUR YOUR W/SM VOL 5 PHARMACY PHARMACY [facility] NEBULIZR NON-DISPB L O2 CONC 1 E1390 [facility] 5 HOME HOME 85%/>02 MEDICAL MEDICAL CONC AT EQUIPME [facility] FLW RATE COLLECTIO 32376 KUSH CURRIE N VENOUS 5 CO [facility] VENIPUNCT URE INJECTION J1030 KUSH CURRIE [address] [facility]PITAL DNISOLONE ACETATE 40 MG BASIC 94571 KUSH CURRIE METABOLIC 5 CO CO PANEL [facility] CALCIUM TOTAL THERAPEUT 56592 KUSH CURRIE IC 5 CO CO PROPHYLAC [facility] TIC/DX INJECTION SUBQ/IM BLOOD 81907 KUSH CURRIE COUNT 5 CO CO [facility] AUTO&AUTO DIFRNTL WBC RADIOLOGI 96085 [facility] EXAM 5 VENANCIO CHEST 2 RADIOLOGY VIEWS ASSOCIAT FRONTAL&L ATERAL PRESSURIZ 63586 KUSH CURRIE ED/NONPRE 5 CO CO [facility]ED [facility] INHALATIO N TREATMENT O2 CONC [address] [facility] 5 HOME HOME 85%/>02 MEDICAL MEDICAL CONC AT EQUIPME EQUIPME PRSC FLW RATE OPHTH 56173 [facility] 5 GRE GRE XM&EVAL COMPRE NEW PT 1/> VST O2 CONC [address] [facility] 5 HOME HOME 85%/>02 MEDICAL MEDICAL CONC AT EQUIPME EQUIPME PRSC FLW RATE CREATININ 02822 [facility] D[facility] E OTHER 5 [...] METHADONE 5 DARRYL DARRYL [facility]INGS HOLDINGS GENERAL 33141 [facility] HEALTH 5 DARRYL DARRYL PANEL HOLDINGS HOLDINGS COLLECTIO 26252 CHENCHO Perera VENOUS 5 CLINIC BLOOD VENIPUNCT URE LIPID 87639 LAB [facility] D[facility] PANEL 5 DARRYL [...] YOUR YOUR W/SM VOL 4 PHARMACY PHARMACY [facility] NEBULIZR NON-DISPB L O2 CONC 1 E1390 [...] PRSC FLW RATE O2 CONC 1 E1390 NAOMEI [facility] 4 HOME HOME 85%/>02 MEDICAL MEDICAL CONC AT EQUIPME EQUIPME PRSC FLW RATE CT SOFT 40788 [place] OSCAR KWA TISSUE 4 MEDICAL NECK SERV W/CONTRAS FOUNDATIO T MATERIAL CT THORAX 29454 [place] ROGERS JONATAN 4 MEDICAL W/CONTRAS SERV T FOUNDATIO MATERIAL LOCM Q9967 [facility] 300-399 4 Y Y MG/ML HOSPITAL HOSPITAL IODINE CONCENTRA TION PER ML BLOOD 02428 [facility] COUNT 4 DARRYL DARRYL COMPLETE HOLDINGS HOLDINGS AUTOMATED COMPREHEN 00059 [facility] SIVE 4 DARRYL DARRYL METABOLIC [place] [address] [facility] D[facility] PROSTATE 4 DARRYL DARRYL SPECIFIC [place] [address] [facility] D[facility] PROSTATE 4 DARRYL DARRYL SPECIFIC HOLDINGS HOLDINGS ANTIGEN FREE COLLECTIO 29687 CHENCHO KIRK N VENOUS 4 CLINIC [place] [address] [facility] THYROID 4 DARRYL DARRYL STIMULATI [place] [address] [facility] FREE 4 DARRYL DARRYL [place] [address] LAB [facility] TRIIODOTH 4 DARRYL [...] YOUR W/SM VOL 4 PHARMACY PHARMACY NONFILTR [facility] NEBULIZR NON-DISPB L CREATINE 66925 [facility] KINASE 4 OF DARRYL TOTAL DARRYL HOLDINGS HOLDINGS COMPREHEN 93183 [facility] DIE[facility] SIVE 4 OF DARRYL METABOLIC [place] [address] LAB [facility] D[facility] THYROID 4 OF DARRYL STIMULATI DARRYL HOLDINGS NG HOLDINGS HORMONE TSH COLLECTIO 04530 CHENCHO AMADO N VENOUS 4 CLINIC [place] BLOOD VENIPUNCT URE BLOOD 22866 [facility] DIEGO COUNT 4 OF DARRYL COMPLETE DARRYL HOLDINGS AUTOMATED HOLDINGS LIPID 36255 [facility] PANEL 4 OF [...] LLC LLC PNEUMAT NEBULIZR DISPBL IM ADM 76043 CHENCHO HUTCHINS- PRQ ID 4 CLINIC [facility] [place] SUBQ/IM NJXS 1 VACCINE IIV3 13317 CHENCHO HUTCHINS- VACCINE 4 CLINIC [place] [...] RATE O2 CONC 1 E1390 NAOMIE NAOMIE [facility] 3 HOME HOME 85%/>02 MEDICAL MEDICAL CONC AT EQUIPME EQUIPME PRSC FLW RATE ADMN SET A7003 YOUR YOUR SM VOL 3 PHARMACY PHARMACY NONFILTR LLC LLC PNEUMAT NEBULIZR DISPBL LIPID 40875 LAB DEIGO LAB [facility]IE[facility] PANEL 3 DARRYL DARRYL HOLDINGS HOLDINGS DUPLEX 88762 [employer], [employer], SCAN 3 SWABBER SWABBER EXTRACRAN JESSIE ROMAN IAL ART CO HOS CO HOS COMPL BI STUDY GENERAL 09198 LAB [facility] LAB DIEGO HEALTH 3 DARRYL DARRYL PANEL HOLDINGS HOLDINGS O2 CONC 1 E1390 [facility] 3 HOME HOME 85%/>02 MEDICAL [...] EQUIP[place] [address] [facility] D[facility] THYROID 3 OF AMERIC STIMULATI DARRYL HOLDING NG HOLDINGS HORMONE TSH COMPREHEN 32359 LAB [facility] LAB DIEGO SIVE 3 OF AMERIC METABOLIC DARRYL HOLDING PANEL HOLDINGS CREATINE 92219 LAB [facility] DIEGO KINASE 3 OF AMERIC TOTAL DARRYL HOLDING HOLDINGS LIPID 41216 LAB [facility] DIEGO PANEL 3 OF AMERIC DARRYL HOLDING HOLDINGS BLOOD 66272 LAB D[facility] LAB DIEGO COUNT 3 OF AMERIC COMPLETE DARRYL HOLDING AUTOMATED HOLDINGS ADMN SET A7003 YOUR YOUR SM VOL 3 PHARMACY PHARMACY [employer] LLC LLC PNEUMAT NEBULIZR DISPBL O2 CONC 1 E1390 [facility] 3 HOME HOME 85%/>02 MEDICAL MEDICAL CONC AT EQUIPME EQUIPME PRSC FLW RATE ADMN SET A7003 YOUR YOUR SM VOL 3 PHARMACY PHARMACY NONFIL[employer] LLC LLC PNEUMAT NEBULIZR DISPBL LOCM Q9967 [facility] 300-399 3 MG/ML DIAGNOSTI DIAGNOSTI IODINE C CENTER, C CENTER, CONCENTRA TION PER ML CT SOFT 26456 [facility] TISSUE 3 NECK DIAGNOSTI DIAGNOSTI W/CONTRAS C CENTER, C CENTER, T MATERIAL CT THORAX 01548 [facility] 3 W/CONTRAS DIAGNOSTI DIAGNOSTI T C CENTER, C CENTER, MATERIAL O2 CONC 1 E1390 NAOMIE AKBAR [place] [address] HOME HOME 85%/>02 MEDICAL MEDICAL CONC AT EQUIPME EQUIPME PRSC FLW RATE ADMN SET A7003 YOUR YOUR SM VOL 3 PHARMACY PHARMACY NONFILTR [employer] PNEUMAT NEBULIZR DISPBL O2 CONC 1 E1390 [facility] 3 HOME HOME 85%/>02 MEDICAL MEDICAL CONC AT EQUIPME EQUIPME PRSC FLW RATE ADMN SET A7003 YOUR YOUR SM VOL 3 PHARMACY PHARMACY [employer] LLC LLC PNEUMAT NEBULIZR DISPBL O2 CONC 1 E1390 [facility] 3 HOME HOME 85%/>02 MEDICAL MEDICAL CONC AT EQUIPME EQUIPME PRSC FLW RATE ADMN SET A7003 YOUR YOUR SM VOL 3 PHARMACY PHARMACY NON[facility] PNEUMAT NEBULIZR DISPBL O2 CONC 1 E1390 NAOMIE [place] [place] 3 HOME HOME 85%/>02 MEDICAL MEDICAL CONC AT EQUIPME EQUIPME [facility] FLW RATE NEBULIZER E0570 NAOMIE AKBAR WITH 3 HOME HOME COMPRESSO MEDICAL MEDICAL R EQUIPME EQUIPME BLOOD 23455 LAB DIE[facility] LAB DIEGO COUNT 3 DARRYL DARRYL COMPLETE HOLDINGS HOLDINGS AUTO&AUTO DIFRNTL WBC ADMN SET A7003 YOUR YOUR SM VOL 3 PHARMACY PHARMACY NONFILTR [employer] [place] [address] [facility] FOLIC 3 DARRYL DARRYL ACID HOLDINGS HOLDINGS SERUM CYANOCOBA 37729 [facility] JENNY 3 DARRYL DARRYL VITAMIN HOLDINGS HOLDINGS B-12 ADMN SET A7003 YOUR YOUR SM VOL 3 PHARMACY PHARMACY [employer] PNEUMAT NEBULIZR DISPBL LIPID 09214 [facility] DIEGO PANEL 3 DARRYL DARRYL HOLDINGS HOLDINGS COMPREHEN 75405 LAB [facility] LAB DIEGO SIVE 3 DARRYL DARRYL METABOLIC [place] [address] LAB DIEGO LAB DIEGO THYROID 3 DARRYL DARRYL STIMULATI HOLDINGS HOLDINGS NG HORMONE TSH CT THORAX 05653 [facility] W/O 3 Y Y [facility]PITAL MATERIAL O2 CONC 1 E1390 NAOMIE [place] 3 HOME HOME 85%/>02 MEDICAL MEDICAL CONC AT EQUIPME EQUIPME PRSC FLW RATE ADMN SET A7003 YOUR YOUR SM VOL 2 PHARMACY PHARMACY [employer] PNEUMAT NEBULIZR DISPBL O2 CONC 1 E1390 NAOMIE [place] 2 HOME HOME 85%/>02 MEDICAL MEDICAL CONC AT EQUIPME EQUIPME PRSC FLW RATE CT SOFT 96780 RHONDA KHAN TISSUE 2 NECK W/CONTRAS T MATERIAL CT THORAX 64705 ATTILI ATTILI 2 ANI ANI W/CONTRAS T MATERIAL ADMN SET A7003 YOUR YOUR SM VOL 2 PHARMACY PHARMACY [employer] PNEUMAT NEBULIZR DISPBL O2 CONC 1 E1390 NAOMIE NAOMIE DEL [place] 2 HOME HOME 85%/>02 MEDICAL MEDICAL CONC AT EQUIPME EQUIPME PRSC FLW RATE ADMN SET A7003 YOUR YOUR SM VOL 2 PHARMACY [facility] PNEUMAT NEBULIZR DISPBL O2 CONC 1 E1390 NAOMIE NAOMIE DEL [place] 2 HOME HOME 85%/>02 MEDICAL MEDICAL CONC AT EQUIPME EQUIPME PRSC FLW RATE ADMN SET A7003 YOUR YOUR SM VOL 2 PHARMACY PHARMACY [facility] PNEUMAT NEBULIZR DISPBL IIV3 00548 MARGO ARAGON VACCINE 2 Apr SPLIT VIRUS 0.5 ML DOSAGE IM USE IM ADM 82998 MARGO ARAGON PRQ ID 2 Apr SUBQ/IM NJXS 1 VACCINE O2 CONC 1 E1390 NAOMIEAN AKBAR [facility] PORT 2 HOME HOME 85%/>02 MEDICAL MEDICAL CONC AT EQUIPME EQUIPME PRSC FLW RATE ADMN SET A7003 YOUR YOUR SM VOL 2 PHARMACY PHARMACY [facility] [employer] [facility] PNEUMAT NEBULIZR DISPBL O2 CONC 1 E1390 NAOMIEAN ARTEAGARELL [facility] PORT 2 HOME HOME 85%/>02 MEDICAL MEDICAL CONC AT EQUIPME EQUIPME PRSC FLW RATE ADMN SET A7003 YOUR YOUR SM VOL 2 PHARMACY PHARMACY [facility] [employer] [facility] PNEUMAT NEBULIZR DISPBL POLYSOM 90546 HOOS R HOOS R 6/>YRS 2 SLEEP 4/> ADDL YESENIA ATTND COMPRE 43768 [facility] AUDIOMETR 2 Y Y Y [facility] THRESHOLD EVAL SP RECOGNIJ TYMPANOME 60794 [facility] 2 Y Y [facility] O2 CONC 1 E1390 NAOMIE NAOMIE DEL [place] 2 HOME HOME 85%/>02 MEDICAL MEDICAL CONC AT EQUIPME EQUIPME PRSC FLW RATE ADMN SET A7003 YOUR YOUR SM VOL 2 PHARMACY PHARMACY [facility] PNEUMAT NEBULIZR DISPBL O2 CONC 1 E1390 NAOMIE NAOMIE DEL [place] 2 HOME HOME 85%/>02 MEDICAL MEDICAL CONC AT EQUIPME EQUIPCT PRSC FLW RATE ADMN SET A7003 YOUR YOUR SM VOL 2 PHARMACY PHARMACY [employer] LLC LLC PNEUMAT NEBULIZR DISPBL LOCM Q9967 [facility] 300-399 2 Y Y MG/ML [facility] IODINE CONCENTRA TION PER ML CT SOFT 87260 [facility] TISSUE 2 Y Y NECK [facility] W/CONTRAS T MATERIAL CT THORAX 96269 [facility] 2 Y Y W/CONTRAS [facility] T MATERIAL CREATININ 56739 [facility] E BLOOD 2 Y Y [facility] O2 CONC 1 E1390 [facility] HOME HOME 85%/>02 MEDICAL MEDICAL CONC [facility] PRS FLW RATE ADMN SET A7003 YOUR YOUR SM VOL 2 PHARMACY PHARMACY [employer] LLC LLC PNEUMAT NEBULIZR DISPBL O2 CONC 1 E1390 [facility] 2 HOME HOME 85%/>02 MEDICAL MEDICAL CONC AT [facility] PRSC FLW RATE ADMN SET A7003 YOUR YOUR SM VOL 2 PHARMACY PHARMACY [facility] LLC LLC PNEUMAT NEBULIZR DISPBL LOCM Q9967 [employer], [phone] 2 SWABBER SWABBER MG/ML JESSIE ROMAN IODINE CO HOS CO HOS CONCENTRA TION PER ML CTA ABDL 41165 [employer], [employer], AORTA&BI 2 SWABBER SWABBER ILIOFEM JESSIE BURRELLS W/CONTRAS CO HOS CO HOS T&POSTP CREATININ 54379 [employer], [employer], E BLOOD 2 SWABBER SWABBER JESS[place] [address] [employer], [employer], UREA 2 SWABBER SWABBER NITROGEN JESSIE JESSIE QUANTITAT CO HOS CO HOS [place] O2 CONC 1 E1390 [facility] 2 HOME HOME 85%/>02 MEDICAL MEDICAL CONC [...] LLC TYPE INTERFCE REPL ONLY PAIR EVAL 53235 [facility] SPEECH 2 Y Y [facility] 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 PROC BASIC 32836 EJSSIE ROMAN METABOLIC 2 CO CO [facility] CALCIUM TOTAL BLOOD 44740 JESSIE ROMAN COUNT 2 CO CO [facility] AUTO&AUTO DIFRNTL WBC RADIOLOGI 29452 [facility] C EXAM 2 NGOZI CHEST 2 RADIOLOGY VIEWS ASSOCIAT FRONTAL&L ATERAL RADIOLOGI 75703 JESSIE Jimenez 2 CO [facility] ON NECK SOFT TISSUE ADMN SET A7003 YOUR YOUR SM VOL 1 PHARMACY PHARMACY NONFILTR [employer] PNEUMAT NEBULIZR DISPBL IM ADM 60387 MARGO ARAGON PRQ ID 1 Apr SUBQ/IM NJXS 1 VACCINE IIV3 57509 MARGO LEESN VACCINE 1 Apr SPLIT VIRUS 0.5 ML DOSAGE IM USE CT SOFT 45700 [facility] TISSUE 1 Y Y NECK [facility] THORAX 94960 [facility] 1 Y Y W/[facility] T MATERIAL ADMN SET A7003 YOUR YOUR SM VOL 1 PHARMACY PHARMACY NONFIL[employer] LLC LLC PNEUMAT NEBULIZR DISPBL LOCM Q9967 [facility] UNIVERS 300-399 1 Y Y MG/ML [facility] IODINE CONCENTRA TION PER ML VISUAL 05993 ROCCO ROCCO FIELD XM 1 GRE GRE UNI/BI W/INTERP EXTENDED EXAM RADEX 37466 JESSIE ROMAN SPINE 1 CO CO [facility] AL MINIMUM 4 VIEWS ADMN SET A7003 YOUR YOUR SM VOL 1 PHARMACY PHARMACY NONFILTR LLC LLC PNEUMAT NEBULIZR DISPBL RADIOLOGI 23970 JESSIE ROMAN C EXAM 1 CO CO CHEST 2 [facility] VIEWS FRONTAL&L ATERAL PRESSURIZ 62260 CHENCHO NABEELTrever ED/NONPRE 1 CLINIC CECILIA SSURIZED PSC INHALATIO N TREATMENT COLLECTIO 70779 [facility] UNIVERS N VENOUS 1 Y Y BLOOD [facility] [place] [address] [facility] UNIVERS FREE 1 Y Y THYROXINE [facility] GENERAL 68242 [facility] 1 Y Y PANEL [facility] COMPREH 88638 MEADOWVIE MEADOWVIE SIVE 1 W W METABOLIC [facility] [place] [address] MEADOWVIE MEADOWVIE FREE 1 W W THYROXINE [place] [address] MEADOWVIE MEADOWVIE THYROID 1 W W STIMULATI REGIONAL REGIONAL NG MEDICAL MEDICAL HORMONE TSH COLLECTIO 47579 MEADOWVIE MEADOWVIE N VENOUS 1 W W BLOOD REGIONAL REGIONAL VENIPUNCT MEDICAL MEDICAL URE BLOOD 78793 MEADOWVIE MEADOWVIE COUNT 1 W W COMPLETE REGIONAL REGIONAL AUTOMATED MEDICAL MEDICAL LARYNGOSC 66719 [place] AOJACKSON OCTAVIANO OPY 1 MEDICAL FLEXIBLE SERV [place]AGNOST[place]OUNDAT[place] [address] [facility] 1 [facility] CT RADIOLOGY ATTENUATI ASSOCIAT [place] [address] JESSIE ROMAN THYROID 1 CO CO [facility] [place] [address] JESSIE ROMAN THYROXINE 1 CO CO TOTAL [facility] [place] [address] LABONE OF LABONE OF THYROID 1 [facility] [facility] STIMULATI NG HORMONE TSH LARYNGOSC 03245 [place] SANTOSH OPY 1 MEDICAL CECILIA FLEXIBLE SERV DIAGNOSTI FOUNDATIO C COLLECTIO 03216 [facility] N VENOUS 1 Y Y BLOOD [facility] [place] [address] [facility] 1 Y Y NITROGEN [facility] QUANTITAT [place] SOFT 16965 [place] ESCOTT TISSUE 1 MEDICAL EDW NECK SERV W/CONTRAS FOUNDATIO T MATERIAL CT THORAX 39456 [facility] 1 Y Y W/[facility] T MATERIAL CREATININ 01325 [facility] E BLOOD 1 Y Y [facility]OSP[facility] COMPREHEN 33356 NIKITA SHELTON SIVE 1 W W METABOLIC REGIONAL REGIONAL PANEL MEDICAL MEDICAL COLLECTIO 36377 NIKITA SHELTON N VENOUS 1 W W BLOOD [facility] REGIONAL [place] [address] NIKITA SHELTON THYROID 1 W W STIMULATI REGIONAL REGIONAL [place] [address] NIKITA HILLWALFONSO FREE 1 W W THYROXINE REGIONAL A[facility]OTT [facility] MEDICAL MEDICAL BLOOD 83950 NIKITA SHELTON COUNT 1 W W COMPLETE [facility] [place] [address] KUSH CURRIE SWALLOWIN 1 [facility] DYSFUNCTI ON&/[place] [address] KUSH CURRIE SWALLOWIN 1 [facility] DYSFUNCTI ON&/[place] [address] KUSH CURRIE SWALLOWIN 1 [facility] DYSFUNCTI ON&[place] [address] LAB[facility] OF [facility]ONE OF THYROID 1 [facility] INC STIMULATI NG HORMONE TSH COLLECTIO 79335 [facility] N VENOUS 1 [place] [address] KUSH CURRIE SWALLOWIN 1 [facility] DYSFUNCTI ON&/[place] [address] KUSH CURRIE SWALLOWIN 1 [facility] DYSFUNCTI ON&/[place] [address] [facility]ONE OF [facility] OF THYROID 1 [facility] [place] [address] KUSH CURRIE SWALLOWIN 1 [facility] DYSFUNCTI ON&/[place] [address] KUSH CURRIE SWALLOWIN 1 [facility] DYSFUNCTI ON&/ORAL FUNCJ FEEDING LARYNGOSC 55639 TIFFANIE FROST OPY 1 MEDICAL CECILIA [place] [address] KUSH CURRIE SWALLOWIN 0 [facility] DYSFUNCTI ON&/[place] [address] KUSH CURRIE SWALLOWIN 0 [facility] DYSFUNCTI ON&/ORAL FUNCJ FEEDING COLLECTIO 00449 NIKITA SHELTON N VENOUS 0 W W BLOOD [facility] [place] [address] NIKITA MEADOWALFONSO THYROID 0 W W STIMULATI [facility] [place] [address] NIKITA HILLWALFONSO FREE 0 W W THYROXINE [facility] MEDICAL MEDICAL COMPREHEN 97815 NIKITA SHELTON SIVE 0 W W METABOLIC [facility] PANEL MEDICAL MEDICAL BLOOD 42123 NIKITA SHELTON COUNT 0 W W COMPLETE [facility] [place] [address] KUSH CURRIE SWALLOWIN 0 [facility] DYSFUNCTI ON&/[place] [address] KUSH CURRIE SWALLOWIN 0 [facility] DYSFUNCTI ON&/[place] [address] KUSH CURRIE SWALLOWIN 0 [facility] DYSFUNCTI ON&/[place] [address] KUSH CURRIE SWALLOWIN 0 [facility] DYSFUNCTI ON&/[place] [address] KUSH CURRIE SWALLOWIN 0 [facility] DYSFUNCTI ON&/[place] [address] KUSH CURRIE SWALLOWIN 0 [facility] DYSFUNCTI ON&/ORAL FUNCJ FEEDING GAUZE A6402 KUSH CURRIE NON-IMPRE 0 CO HOSP CO HOSP G STERL MED EQUIP MED EQUIP 16 SQ/< & & W/O ADHES BORDR ENTERAL B4034 KUSH CURRIE FEEDING 0 CO HOSP [place] HOSP SUPPLY MED EQUIP MED EQUIP KIT; & & SYRINGE FED PER DAY TAPE A4450 KUSH CURRIE NON-WATER 0 CO HOSP CO HOSP PROOF PER MED EQUIP MED EQUIP 18 & & [place] [address] KUSH CURRIE SWALLOWIN 0 [facility] DYSFUNCTI ON&/[place] [address] KUSH CURRIE SWALLOWIN 0 [facility] DYSFUNCTI ON&/[place] [address] KUSH CURRIE SWALLOWIN 0 [facility] DYSFUNCTI ON&/[place] [address] KUSH CURRIE SWALLOWIN 0 [facility] DYSFUNCTI ON&/[place] [address] MEADOWVIE MEADOWVIE IMAGING [address] [facility] [place] [address] KUSH CURRIE SWALLOWIN 0 [facility] DYSFUNCTI ON&/[place] [address] KUSH CURRIE SWALLOWIN 0 [facility] DYSFUNCTI ON&/[place] [address] KUSH CURRIE SWALLOWIN 0 [facility] DYSFUNCTI ON&/[place] [address] KUSH CURRIE SWALLOWIN 0 [facility] DYSFUNCTI ON&/[place] [address] KUSH CURRIE SWALLOWIN 0 [facility] DYSFUNCTI ON&/ORAL FUNCJ FEEDING ENTERAL B4034 KUSH CURRIE FEEDING 0 CO HOSP CO HOSP SUPPLY MED EQUIP MED EQUIP KIT; & & SYRINGE FED PER DAY TAPE A4450 KUSH CURRIE NON-WATER 0 CO HOSP CO HOSP PROOF PER MED EQUIP MED EQUIP 18 & & [place] [address] KUSH CURRIE SWALLOWIN 0 [facility] DYSFUNCTI ON&/ORAL FUNCJ FEEDING GENERAL 58809 [facility] HEALTH 0 [facility] PANEL CYANOCOBA 45727 [facility] OF JENNY 0 [facility] VITAMIN B-[place] [address] [facility] FOLIC 0 [facility] [place] [address] [facility] IRON 0 [facility] [place] [address] [facility] CHLOE QUE[facility] CHLOE ZINC 0 JESSIE ROMAN [facility] PREALBUMI 94980 [facility] N 0 [facility] [address] KUSH CURRIE SWALLOWIN 0 [facility] DYSFUNCTI ON&/[place] [address] JESSIE ROMAN LIPASE 0 CO CO [facility] COMPREHEN 13814 JESSIE ROMAN SIVE 0 CO CO METABOLIC [facility] [place] [address] JESSIE ROMAN AMYLASE 0 CO CO [facility] COLLECTIO 67527 JESSIE LABORATOR N VENOUS 0 CO Y BLOOD HOSPITAL CORPORATI VENIPUNCT ON OF AM URE ANTIBODY 07169 JESSIE ROMAN HELICOBAC [address] [facility] PYLORI CULTURE 19339 JESSIE ROMAN BACTERIAL 0 CO CO [facility] QUANTTATI VE COLONY COUNT URINE BLOOD 23581 JESSIE ROMAN COUNT 0 CO CO SMEAR [facility] MCRSCP W/MNL DIFRNTL WBC COUNT THER 36225 JESSIE ROMAN PROPH/DX 0 CO CO NJX IV [facility] PUSH SINGLE/1S T SBST/DRUG URNLS DIP 43287 JESSIE LABORATOR 0 CO Y STICK/TAB HOSPITAL CORPORATI LET [place] [address] K[facility] CURRIE SWALLOWIN 0 [facility] HOSPITAL DYSFUNCTI ON&[place] [address] KUSH CURRIE SWALLOWIN 0 [facility] HOSPITAL DYSFUNCTI ON&/[place] [address] KUSH CURRIE SWALLOWIN 0 [facility]OSPITAL DYSFUNCTI ON&/ORAL FUNCJ FEEDING [place] [address] CURRIE CURRIE G FUNCJ 0 CO CO W/CINERAD [facility] IOGRAPY/V IDRADIOG MOTION 48759 KUSH CURRIE FLUOR 0 CO CO [facility] FUNCJ C/[place] [address] KUSH CURRIE SWALLOWIN 0 CO CO [facility] DYSFUNCTI ON&/ORAL FUNCJ FEEDING EVAL 80681 KUSH CURRIE ORAL&PHAR 0 CO CO YNGEAL [facility] FUNCJ COLLECTIO 72319 NIKITA LOPEZCORBY N VENOUS 0 W W BLOOD [facility] VENIPUNCT MEDICAL MEDICAL URE BLOOD 80109 MEADOWVIE MEADOWVIE COUNT 0 W W COMPLETE [facility] [place] [address] [facility] THERAPY/P [facility] ROPHYLAXI S /DX 1ST TO 1 [place] [address] [facility] INFUSION 0 CO CO HYDRATION [facility] INITIAL 31 MIN-1 [place] [address] [facility] CO CO HYDRATION [facility] EACH ADDITIONA L HOUR INJECTION J0330 [facility] 0 Y Y SUCCINYLC [facility] HOLINE CHLORIDE UP TO 20 MG ESOPHAGOS [address] [place] [facility] COPY 0 MEDICAL CECILIA FLEXIBLE SERV TRANSORAL FOUNDATIO DIAGNOSTI C INJECTION J2710 [facility] 0 Y Y NEOSTIGMI [facility] NE METHYLSUL FATE UP TO 0.5 MG INJECTION J3010 [facility] FENTANYL 0 Y Y CITRATE [facility] 0.1 MG LARYNGOSC 35607 [place] [facility] OPY W/WO 0 MEDICAL CECILIA TRACHEOSC SERV OPY FOUNDATIO W/MICRO/T [place]ES[place] INJECTION J2250 [facility] 0 Y Y MIDAZOLAM [facility] HCL PER 1 MG ANES 83183 [place] ESOPH 0 MEDICAL CORY THYRD SERV LARYNX FOUNDATIO TRACH & LYMPH NECK 1YR DILATION 79581 [place] [facility] ESOP[facility] 0 MEDICAL CECILIA UNGUIDED SERV SOUND/YVETTE FOUNDATIO GIE 1/MULT PASS INJECTION J1100 [facility] 0 Y Y DEXAMETHO [facility] SONE SODIUM PHOSPHATE 1 MG RINGERS [id number] [facility] LACTATE 0 Y Y INFUSION [facility] UP TO [address] THORAX 42119 [place] ATTILI 0 MEDICAL ANI W/CONTRAS SERV T FOUNDATIO MATERIAL CREATININ 72892 [facility] E BLOOD 0 Y Y HOSPITAL H[facility]PITAL CT SOFT 34751 [place] AMATO TISSUE 0 MEDICAL JONATAN NECK SERV W/CONTRAS FOUNDATIO T MATERIAL COLLECTIO 39326 [facility] N VENOUS 0 Y Y BLOOD [facility] [place] [address] [facility] UREA 0 Y Y NITROGEN [facility] QUANTITAT [place] SWALLOWIN 14979 JESSICA Benson FUNCJ 0 NGOZI W/CINERAD RADIOLOGY IOGRAPY/V ASSOCIAT IDRADIOG MOTION 20730 [facility] FLUOR 0 CO [facility] FUNC[place] C/[place] [address] JESSIE ROMAN INFUSION 0 CO CO THERAPY/P [facility] S /DX 1ST TO 1 [place] [address] JESSIE ROMAN INFUSION 0 CO CO THERAPY [facility] PROPHYLAX IS/[place] [address] JESSIE ROMAN INFUSION 0 CO CO THERAPY [facility] [place] [address] JESSIE ROMAN INFUSION 0 CO CO THERAPY/P [facility] ROPHYLAXI S /DX 1ST TO [place] [address] JESSIE ROMAN INFUSION 0 CO [facility]DX 1ST [place] [address] JESSIE ROMAN INFUSION 0 CO CO THERAPY [facility] [place] [address] JESSIE JESSIE INFUSION 0 CO CO THERAPY [facility] PROPHYLAX IS/DX EA HOUR COMPREHEN 60421 JESSIE ROMAN SIVE 0 CO CO METABOLIC [facility] PANEL COLLECTIO 50491 JESSIE BURRELLS N VENOUS 0 CO CO BLOOD HOSPITAL HOSPITAL VENIPUNCT URE CULTURE 99248 JESSIE JESSIE BACTERIAL 0 CO CO BLOOD [facility] HOSPITAL AEROBIC W/[place] [address] JESSIE JESSIE INFUSION 0 CO CO THERAPY/P HOSPITAL [facility] ROPHYLAXI S /DX 1ST TO 1 HR RADIOLOGI 34034 JESSIE Jimenez EXAM 0 CO CO CHEST 2 [facility] HOSPITAL VIEWS FRONTAL&L ATERAL URNLS DIP 51473 JESSIE SANCHEZOLAS 0 CO CO STICK/TAB HOSPITAL HOSPITAL LET REAGENT AUTO MICROSCOP Y BLOOD 74149 JESSIE JESSIE COUNT 0 CO CO COMPLETE [facility] HOSPITAL AUTO&AUTO DIFRNTL WBC RESP E0600 NAOMIE AKBAR SUCTION 0 HOME MED HOME MED PUMP HOME EQUIP. L EQUIP. L MODEL PRTBLE/ST ATION ELEC TAPE A4450 KUSH CURRIE NON-WATER 0 CO HOSP CO HOSP PROOF PER MED EQUIP MED EQUIP 18 & & SQUARE INCHES BLOOD 10037 NIKITA MEAWVIE COUNT 0 W W COMPLETE [facility] COLLECTIO 31504 JESSICAANGELA LOPEZDALIAVIE N VENOUS 0 W W BLOOD [facility] VENIPUNCT [place] [address] ONCOLOGY JAJA, INFUSION 0 HEMATOLOG BRITTANY M HYDRATION Y CARE INITIAL INC 31 MIN-1 HOUR COMPREHEN 60626 MEADOWVIE MEAWVIE SIVE 0 W W [facility] COMPREHEN 53979 CURRIE CURRIE SIVE 0 CO CO METABOLIC [facility] HOSPITAL PANEL BLOOD 09630 KUSH CURRIE COUNT 0 CO CO COMPLETE [facility] HOSPITAL AUTO&AUTO DIFRNTL WBC RADEX 36342 [facility] SPINE 0 EIDER, LUMBOSACR RADIOLOGY NANDINI WILKINSON 2/3 K VIEWS ASSOCIATE S PSC SBSQ 58458 [facility] 0 CLINIC CHAMP CARE/DAY PSC 15 MINUTES RADIOLOGI 04507 Barbara TINSLEY EXAM 0 CECI C CHEST 2 RADIOLOGY VIEWS FRONTAL&L ASSOCIATE ATERAL S PSC OBSERVATI 27581 MA[place] GR ON CARE 0 , MINOR , MINOR DISCHARGE MANAGEMEN T THER 54600 JESSIE ROMAN PROPH/DX 0 CO CO NJX IV [facility] PUSH SINGLE/1S T SBST/DRUG BLOOD 74553 JESSIE ROMAN COUNT 0 CO CO COMPLETE [facility] AUTO&[place] [address] JESSIE ROMAN INFUSION 0 CO CO THERAPY/P [facility] ROPHYLAXI S /DX 1ST TO 1 HR HOSPITAL G0378 JESSIE ROMAN OBSERVATI 0 CO CO ON HOSPITAL [place] [address] JESSIE ROMAN INFUSION 0 CO CO HYDRATION [facility] INITIAL 31 MIN-1 HOUR COMPREHEN 68425 JESSIE ROMAN SIVE 0 CO CO METABOLIC [facility] PANEL COLLECTIO 69862 JESSIE ROMAN N VENOUS 0 CO CO BLOOD [facility] VENIPUNCT URE THROMBOPL 20050 JESSIE ROMAN ASTIN 0 CO CO TIME [facility] PARTIAL PLASMA/WH OLE BLOOD BLOOD 76586 JESSIE ROMAN COUNT 0 CO CO SMEAR [facility] MCRSCP W/MNL DIFRNTL WBC COUNT RADIOLOGI 91048 [place] SH[place], C 0 CECI Jimenez EXAMINATI RADIOLOGY ON CHEST SINGLE ASSOCIATE VIEW S PSC FRONTAL PROTHROMB 60309 JESSIE ROMAN IN TIME 0 CO CO [facility] HOSPITAL RADEX ABD 45453 JESSIE ROMAN COMPL 0 CO CO AQT ABD [facility] W/S/E/D VIEWS 1 VIEW CH RADEX 69607 [place] EWLDON, ABDOMEN 1 0 CECI Jimenez RADIOLOGY ANTEROPOS TERIOR ASSOCIATE VIEW S PSC INITIAL 50833 MA[place] GR OBSERVATI 0 , MINOR , MINOR ON CARE/DAY 70 MINUTES RADJ DLVR 33123 [place] INA 3/> 0 MEDICAL PRA AREAS SERV CUSTOM FOUNDATIO BLKING 6-10MEV RADJ DLVR 04215 [place] INA 3/> 0 MEDICAL PRA AREAS SERV CUSTOM FOUNDATIO BLKING 6-10MEV RADIATION 65196 [place] INA 0 MEDICAL PRA TREATMENT SERV FOUNDATIO MANAGEMEN T 5 TREATMENT S RADJ DLVR 55382 [place] I[place] 3/> 0 MEDICAL PRA AREAS SERV CUSTOM FOUNDATIO BLKING 6-10MEV RADJ DLVR 03255 [place] I[place] 3/> 0 MEDICAL PRA AREAS SERV CUSTOM FOUNDATIO BLKING 6-10MEV CONTINUIN 48878 [place] I[place] G MEDICAL 0 MEDICAL PRA PHYSICS SERV CONSLTJ FOUNDATIO [place] INJECTION J2469 ONCOLOGY ONCOLOGY 0 HEMATOLOG HEMATOLOG PALONOSET Y CARE IN Y CARE IN OCTAVIANO HCL 25 MCG CHEMOTX 02797 ONCOLOGY JAJA CHR ADMN IV 0 HEMATOLOG NFS TQ UP Y CARE IN 1 HR SBST/DRUG INJECTION J9060 ONCOLOGY JAJA CHR 0 HEMATOLOG CISPLATIN Y CARE IN POWDER OR SOLUTION 10 MG THERAPEUT 71791 [place] INA IC 0 MEDICAL PRA RADIOLOGY SERV PORT FOUNDATIO IMAGES(S) RADIATION 04697 [place] INA 0 MEDICAL PRA TREATMENT SERV FOUNDATIO MANAGEMEN T 5 [place] [address] ONCOLOGY JAJA CHR INFUSION 0 HEMATOLOG HYDRATION Y [place] [address] ONCOLOGY JAJA CHR INFUSION 0 HEMATOLOG THER Y CARE IN PROPH ADDL SEQUENTIA L TO 1 HR COMPREHEN 31914 MEADOWVIE MEADOWVIE SIVE 0 W [facility] PANEL [facility] CENTER COLLECTIO 75200 MEADOWVIE MEADOWVIE N VENOUS 0 W W BLOOD [facility] C[facility] THERAPEUT 12459 ONCOLOGY JAJA CHR IC 0 HEMATOLOG INJECTION Y CARE IN IV PUSH EACH NEW DRUG BLOOD 33252 MEADOWVIE MEADOWVIE COUNT 0 W W COMPLETE [facility] AUTOMATED [facility] CENTER RADJ DLVR 19686 [place] I[place] 3/> 0 MEDICAL PRA AREAS SERV CUSTOM FOUNDATIO BLKING 6-10MEV RADJ DLVR 30119 [place] I[place] 3/> 0 MEDICAL PRA AREAS SERV CUSTOM FOUNDATIO BLKING 6-10MEV CONTINUIN 17750 [place] I[place] G MEDICAL 0 MEDICAL PRA PHYSICS SERV CONSLTJ FOUNDATIO [place] RADJ DLVR 21379 [place] I[place] 3/> 0 MEDICAL PRA AREAS SERV CUSTOM FOUNDATIO BLKING 6-10MEV RADJ DLVR 29156 [place] I[place] 3/> 0 MEDICAL PRA AREAS SERV CUSTOM FOUNDATIO BLKING 6-10MEV RADJ DLVR 63820 [place] I[place] 3/> 0 MEDICAL PRA AREAS SERV CUSTOM FOUNDATIO BLKING 6-10MEV RADIATION 93736 [place] INA 0 MEDICAL PRA TREATMENT SERV FOUNDATIO MANAGEMEN T 5 TREATMENT S GENERAL 43028 [facility] 0 NCLC INC PANEL RADJ DLVR 96843 [place] I[place] 3/> 0 MEDICAL PRA AREAS SERV CUSTOM FOUNDATIO BLKING 6-10MEV LIPID 65077 [facility] PANEL 0 [employer] INC [employer] INC BASIC 64871 [place] I[place] RADIATION 0 MEDICAL PRA SERV DOSIMETRY FOUNDATIO CALCULATI ON TELETHERA 91112 [place] PY 0 MEDICAL PRA ISODOSE SERV PLAN FOUNDATIO COMPLETE RADJ DLVR 00729 [place] 3/> 0 MEDICAL PRA AREAS SERV CUSTOM FOUNDATIO BLKING 6-10MEV RADJ DLVR 76910 [place] I[place] 3/> 0 MEDICAL PRA AREAS SERV CUSTOM FOUNDATIO BLKING 6-10MEV CONTINUIN 17542 [place] G MEDICAL 0 MEDICAL PRA PHYSICS SERV CONSLTJ FOUNDATIO [place] RADIATION 43832 [place] INA 0 MEDICAL PRA TREATMENT SERV FOUNDATIO MANAGEMEN T 5 TREATMENT S THER RAD 97957 [place] SIMULAJ-A 0 MEDICAL PRA [place]ED [place] [address] [place] DEVICES 0 MEDICAL PRA DESIGN & SERV CONSTRUCT FOUNDATIO ION COMPLEX RADJ DLVR 61174 [place] ZHANE, 3/> 0 MEDICAL DAVID AREAS SERV CUSTOM FOUNDATIO BLKING 6-10MEV RADJ DLVR 65450 [place] ZHANE, 3/> 0 MEDICAL DAVID AREAS SERV CUSTOM FOUNDATIO BLKING 6-10MEV CONTINUIN 45591 [place] I[place] G MEDICAL 0 MEDICAL PRA PHYSICS SERV CONSLTJ FOUNDATIO [place] RADJ DLVR 81776 [place] I[place] 3/> 0 MEDICAL PRA AREAS SERV CUSTOM FOUNDATIO BLKING 6-10MEV RADJ DLVR 43145 [place] I[place] 3/> 0 MEDICAL PRA AREAS SERV CUSTOM FOUNDATIO BLKING 6-10MEV COMPREHEN 42052 NIKITA MEAWVIE SIVE 0 W W [facility] CENTER RADIATION 81683 [place] INA 0 MEDICAL PRA TREATMENT SERV FOUNDATIO MANAGEMEN T 5 TREATMENT S COLLECTIO 72335 JESSICACORBY SHELTON N VENOUS 0 W W BLOOD [facility] C[facility] BASIC 88931 [place] RADIATION 0 MEDICAL PRA SERV DOSIMETRY FOUNDATIO CALCULATI ON TELETHERA 47474 [place] PY 0 MEDICAL PRA ISODOSE SERV PLAN FOUNDATIO COMPLETE BLOOD 12062 JESSICADOANGELA MEADOWVIE COUNT 0 W W COMPLETE [facility] CENTER RADJ DLVR 22458 [place] I[place] 3/> 0 MEDICAL PRA AREAS SERV CUSTOM FOUNDATIO BLKING 6-10MEV RADJ DLVR 04146 [place] 3/> 0 MEDICAL PRA AREAS SERV CUSTOM FOUNDATIO BLKING 6-10MEV LARYNGOSC 30644 [place] SANT[place] OPY 0 MEDICAL , HANNAH FLEXIBLE SERV DIAGNOSTI FOUNDATIO C RADJ DLVR 82764 [place] I[place] 3/> 0 MEDICAL PRA AREAS SERV CUSTOM FOUNDATIO BLKING 6-10MEV CONTINUIN 25093 [place] I[place] G MEDICAL 0 MEDICAL PRA PHYSICS SERV CONSLTJ FOUNDATIO [place] RADJ DLVR 48774 [place] I[place] 3/> 0 MEDICAL PRA AREAS SERV CUSTOM FOUNDATIO BLKING 6-10MEV THERAPEUT 68484 [place] IC 0 MEDICAL PRA RADIOLOGY SERV PORT FOUNDATIO IMAGES(S) RADJ DLVR 05642 [place] INA 3/> 0 MEDICAL PRA AREAS SERV CUSTOM FOUNDATIO BLKING 6-10MEV RADIATION 71031 [place] I[place] 0 MEDICAL PRA TREATMENT SERV FOUNDATIO MANAGEMEN T 5 TREATMENT S RADJ DLVR 13084 [place] 3/> 0 MEDICAL PRA AREAS SERV CUSTOM FOUNDATIO BLKING 6-10MEV RADJ DLVR 74886 [place] I[place] 3/> 0 MEDICAL PRA AREAS SERV CUSTOM FOUNDATIO BLKING 6-10MEV RADJ DLVR 23038 [place] I[place] 3/> 0 MEDICAL PRA AREAS SERV CUSTOM FOUNDATIO BLKING 6-10MEV RADJ DLVR 56678 [place] I[place] 3/> 0 MEDICAL PRA AREAS SERV CUSTOM FOUNDATIO BLKING 6-10MEV THERAPEUT 18979 [place] I[place] IC 0 MEDICAL PRA RADIOLOGY SERV PORT FOUNDATIO IMAGES(S) CONTINUIN 46605 [place] I[place] G MEDICAL 0 MEDICAL PRA PHYSICS SERV CONSLTJ FOUNDATIO [place] RADJ DLVR 64015 [place] I[place] 3/> 0 MEDICAL PRA AREAS SERV CUSTOM FOUNDATIO BLKING 6-10MEV RADIATION 67358 [place] I[place] 0 MEDICAL PRA TREATMENT SERV FOUNDATIO MANAGEMEN T 5 TREATMENT S RADJ DLVR 09251 [place] 3/> 0 MEDICAL PRA AREAS SERV CUSTOM FOUNDATIO BLKING 6-10MEV RADJ DLVR 06232 [place] 3/> 0 MEDICAL PRA AREAS SERV CUSTOM FOUNDATIO BLKING 6-10MEV RADJ DLVR 69776 [place] I[place] 3/> 0 MEDICAL PRA AREAS SERV CUSTOM FOUNDATIO BLKING 6-10MEV RADJ DLVR 95966 [place] 3/> 0 MEDICAL PRA AREAS SERV CUSTOM FOUNDATIO BLKING 6-10MEV RADIATION 01350 [place] I[place] 0 MEDICAL PRA TREATMENT SERV FOUNDATIO MANAGEMEN T 5 TREATMENT S THER RAD 68449 [place] SIMULAJ-A 0 MEDICAL PRA IDED [place] [address] [place] DEVICES 0 MEDICAL PRA DESIGN & [place] [address] [place] MOJGAN GUIDANCE 0 MEDICAL EDU RADIATION SERV THERAPY FOUNDATIO FLDS PLACEMENT CONTINUIN 81923 [place] G MEDICAL 0 MEDICAL PRA PHYSICS SERV CONSLTJ FOUNDATIO [place] EGD 52601 [place] CHRISTINA PERCUTANE 0 MEDICAL RICH OUS SERV PLACEMENT FOUNDATIO GASTROSTO MY TUBE LARYNGOSC 84976 [place] OPY 0 MEDICAL CECILIA W/BIOPSY SERV MICROSCOP FOUNDATIO E/[place] [address] [place] HDZ SURG 0 MEDICAL VARGAS PATHOLOGY SERV FOUNDATIO GROSS&KAMILA ROSCOPIC EXAM ANES 40862 [place] VITAL STEVIE ESOPH 0 MEDICAL THYRD SERVICES LARYNX TRACH & LYMPH NECK 1YR L HRT 78948 [place] LINO CATHETERI 0 MEDICAL CALEB ZATION SERV RETROGRAD [place] [address] [place] C-CATHJ 0 MEDICAL CALEB F/SLCTV C SERV ANGRPH FOUNDATIO I SI&R 89748 [place] F/NJX PX 0 MEDICAL CALEB DURING SERV C-CATHJ FOUNDATIO VENTR&/AT R ANGRPH I SI&R 39376 [place] F/NJX PX 0 MEDICAL CALEB DURING SERV C-CATHJ FOUNDATIO PULM&/OR SELECT INJECTION 35315 [place] CARDIAC 0 MEDICAL CALEB CATHJ L SERV VENTR/L FOUNDATIO ATR ANGIOGRAP H ECG 61405 [facility] ROUTINE 0 Y Y ECG [facility] W/LEAST 12 LDS TRCG ONLY W/O I&R CT THORAX 88246 [facility] UNIVERS 0 Y Y W/CONTRAS HOSPITAL HOSPITAL T MATERIAL CT SOFT 06735 [facility] TISSUE 0 Y Y NECK [facility] W/CONTRAS T MATERIAL ECG 27120 TIFFANIE MOJICA ROUTINE 0 MEDICAL NAN ECG SERV W/LEAST FOUNDATIO 12 LDS I&R ONLY BLOOD 63693 [facility] COUNT 0 Y Y COMPLETE [facility] AUTOMATED COMPREHEN 87016 [facility] SIVE 0 Y Y METABOLIC [facility] PANEL COLLECTIO 60610 [facility] N VENOUS 0 Y Y BLOOD [facility] VENIPUNCT URE THROMBOPL 33419 [facility] ASTIN 0 Y Y TIME [facility] PARTIAL PLASMA/[place] [address] [facility] FREE 0 Y Y THYROXINE [facility] [place] [address] [facility] THYROID 0 Y Y STIMULATI [facility] NG HORMONE TSH PROTHROMB 40558 [facility] IN TIME 0 Y Y [facility] HOSPITAL CT THORAX 90993 [facility] JO[facility] S W/CONTRAS RADIOLOGY T MATERIAL ASSOCIATE S PSC ADMN SET A7003 YOUR YOUR SM VOL 8 PHARMACY PHARMACY NONFILTR [facility] PNEUMAT NEBULIZR DISPBL THER 78728 JESSIE ROMAN PROPH/DX 8 CO [facility] SUBQ/IM THER 80470 JESSIE ROMAN PROPH/DX 8 CO [facility] SUBQ/IM THER 60768 JESSIE ROMAN PROPH/DX 8 [facility] SUBQ/IM RADIOLOGI 33515 [place] PAUL EXAM 8 JOAQUÍN S CHEST 2 RADIOLOGY VIEWS FRONTAL&L ASSOCIATE ATERAL S PSC O2 CONC 1 E1390 NAOMIE AKBAR [facility] 8 HOME MED HOME MED 85%/>02 EQUIP. EQUIP. CONC AT [employer] [facility] FLW RATE O2 CONC 1 E1390 NAOMIE AKBAR [facility] 8 HOME MED HOME MED 85%/>02 EQUIP. EQUIP. CONC AT [employer] [facility] FLW RATE O2 CONC 1 E1390 [place] [address] HOME MED HOME MED 85%/>02 EQUIP. EQUIP. CONC AT [employer] [facility] [place] [address] [facility] THYROID 8 [facility] STIMULATI NG HORMONE TSH COMPREHEN 05919 [facility] SIVE 8 [facility] METABOLIC PANEL CYANOCOBA 19328 [facility] JENNY 8 [facility] VITAMIN B-12 LIPID 67135 [facility] PANEL 8 [facility] DEMO&/VINICIO 32233 JESSIE Velasco OF PT 8 CO [facility] GEN/NEB/I NHLR/IP THER 29388 JESSIE ROMAN PROPH/DX 8 CO CO MSX [facility] SUBQ/IM ECG 44351 JESSIE ROMAN ROUTINE 8 CO CO ECG [facility] W/LEAST 12 LDS TRCG ONLY W/O I&R MANJ 97549 JESSIE ROMAN WALL 8 CO CO FACILITAT [facility] E LNG FUNCJ 1 DEMO&/VINICIO L O2 CONC 1 E1390 [place] [address] HOME MED HOME MED 85%/>02 EQUIP. EQUIP. CONC AT [employer] [facility] FLW RATE ADMN SET A7005 YOUR YOUR W/SM VOL 8 PHARMACY PHARMACY [facility] NEBULIZR NON-DISPB L O2 CONC 1 E1390 [place] [address] HOME MED HOME MED 85%/>02 EQUIP. EQUIP. CONC AT [employer] [facility] FLW RATE ADMN SET A7003 YOUR YOUR SM VOL 8 PHARMACY PHARMACY NONFILENDLESS [facility] PNEUMAT NEBULIZR DISPBL O2 CONC 1 E1390 [place] [address] HOME MED HOME MED 85%/>02 EQUIP. EQUIP. CONC AT [employer] [facility] FLW RATE Encounters Encounter Start End Date Code Location Performer Type Date HOSPITAL [facility] - 7 7 [facility] 24904 [facility] 7 7 PHYSICIAN T VISIT S GROUP 15 MINUTES [facility] [place] [address] 7 [facility] T EMERGENCY 05176 [facility] 7 7 DESIRE VISIT EMERGENCY HIGH PHYS SEVERITY& THREAT [facility] GOME[facility] - 7 7 [facility] OUTPATIEN [facility] [place] [address] 7 [facility] OUTPATIEN [facility] [address] INPATIENT HOSPITAL [place] [address] 7 [facility] EMERGENCY 52529 [facility] 7 7 DESIRE VISIT EMERGENCY HIGH PHYS SEVERITY& THREAT [facility] [place] [address] 7 [facility] [place] [address] 7 [facility] T OFFICE 12970 [facility] 7 7 PHYSICIAN T VISIT S GROUP 15 MINUTES HOSPITAL [place] [address] 7 [facility] T OFFICE 14562 [facility] 7 7 MEM HOSP T VISIT INC 10 MINUTES OFFICE 96361 [facility] 7 7 MD SUNNY, T VISIT PSC 15 MINUTES HOSPITAL [place] [address] 7 [facility] OUTPATIEN [facility] T OFFICE 09233 [facility] 7 7 PHYSICIAN T VISIT S GROUP 15 MINUTES HOSPITAL [place] [address] 7 [facility] OUTPATIEN [facility] [place] [address] 7 [facility] T EMERGENCY 60115 [facility] 7 7 DESIRE DEPARTMEN EMERGENCY T VISIT PHYS HIGH/URGE NT SEVERITY EMERGENCY 47584 [facility] 7 7 DESIRE VISIT EMERGENCY HIGH PHYS SEVERITY& THREAT [facility] EMERGENCY 61946 [facility] 7 7 [facility] T VISIT HIGH/URGE NT SEVERITY HOSPITAL [facility]RIE - 7 7 [facility] T OFFICE 91474 [facility] OUTPATIEN 7 7 PHYSICIAN T VISIT S GROUP 15 MINUTES HOSPITAL [facility] - 7 7 MEM H[facility]P OUTPATIEN INC HOSPITAL [facility] - 7 7 MEM H[facility]P OUTPATIEN INC T OFFICE 77997 [facility] OUTPATI[facility] 7 7 PHYSICIAN T VISIT S GROUP 25 MINUTES HOSPITAL [facility]OME[facility] - 7 7 MEM HOSP OUTPATIEN INC [facility] GOMEZ - 7 7 MEM HOSP OUTPATIEN INC T OFFICE 54471 [facility] OUTPATIEN 7 7 MEM HOSP T VISIT INC 10 MINUTES OFFICE 98745 [facility] 7 7 PHYSICIAN T VISIT S GROUP 25 MINUTES HOSPITAL [facility]OME[facility] - 7 7 MEM HOSP OUTPATIEN INC T OFFICE 93116 [facility] OUTPATI 7 7 MD SUNNY, T VISIT PSC 15 MINUTES HOSPITAL [facility] - 7 7 MEM HOSP OUTPATIEN INC T OFFICE 08650 [facility] T VISIT INC 10 MINUTES HOSPITAL [facility] - 6 6 MEM HOSP OUTPATIEN INC T OFFICE 37237 [facility] OUTPATIEN 6 6 PHYSICIAN T VISIT S GROUP 15 MINUTES HOSPITAL [facility] - 6 6 MEM HOSP OUTPATIEN INC T OFFICE 89397 [facility] OUTPATIEN 6 6 PHYSICIAN KAMILA T VISIT S GROUP 15 MINUTES OFFICE 73643 [facility] OUTPATIEN 6 6 MEM HOSP T VISIT INC 10 MINUTES HOSPITAL [facility] - 6 6 MEM HOSP OUTPATIEN INC T OFFICE 29090 [facility] OUTPAT[facility] 6 6 PHYSICIAN KAMILA T VISIT S GROUP 25 MINUTES HOSPITAL [facility] - 6 6 MEM HOSP OUTPATIEN INC T OFFICE 61015 [facility] OUTPATIEN 6 6 PHYSICIAN KAMLIA T VISIT S GROUP 15 MINUTES HOSPITAL [facility] - 6 6 MEM HOSP OUTPATIEN [facility] GOMEZ - 6 6 MEM HOSP OUTPATIEN [facility] T OFFICE 74499 [facility] OUTPATI[facility] 6 6 MEM HOSP T NEW 10 INC [facility]IRD - 6 6 [facility] T OFFICE 66598 [facility] PHYSICIAN KAMILA T VISIT S GROUP 15 MINUTES OFFICE 99404 [facility] 6 6 Y MEDICAL MU T VISIT CLINIC 15 [facility] GOMEZ - 6 6 MEM HOSP OUTPATIEN [facility] EMERGENC[facility] 13547 [facility] 6 6 [facility] HIGH SEVERITY& THREAT [facility] BAIRD - 6 6 [facility] T OFFICE 94038 [facility] 6 6 PHYSICIAN KAMILA T VISIT S GROUP 15 [facility]PITAL GOMEZ - 6 6 MEM H[facility]P OUTPATIEN [facility] - 6 6 [facility] 6 6 [facility] T OFFICE 59517 [facility] 6 6 Y T [facility]ISIT 5 [facility] GOMEZ [facility] 6 6 [facility] CURRIE - 6 6 [facility] - 6 6 [facility] 6 [facility] 14990 [facility] 6 6 PHYSICIAN KAMILA T VISIT S GROUP 15 MINUTES [facility] 6 6 [facility] INPATIENT CENTER [facility] OFFICE 88920 [facility] 6 6 PHYSICIAN KAMILA T VISIT S GROUP 15 MINUT[facility] 6 6 [facility] INPATIENT [facility] OFFICE 58665 [facility] 6 6 Y T VISIT 5 [facility] UN[facility] - 6 6 [facility] 6 6 [facility] T OFFICE 45834 [facility] 6 6 Y T VISIT 5 [facility] OFFICE 22396 [facility] 6 6 PHYSICIAN KAMILA T [facility]ISIT S GROUP 15 MINUTES [facility] GOMEZ - 6 6 [facility] 6 6 [facility] INPATIENT CENTER [facility] 51622 [facility]AL[facility]ING[facility] DEPT 6 6 PHYSICIAN KAMILA VISIT S, PLLC HIGH SEVERITY& THREAT [facility] [address] [facility] DEPT 6 6 DESIRE NGOZI VISIT EMERGENCY HIGH PHYS SEVERITY& THREAT FUNCJ OFFICE 40764 [facility] 6 6 PHYSICIAN KAMILA T VISIT S GROUP 15 MINUTES [facility] 6 6 [facility] EM[facility]GENC[facility] 32063 [facility] 6 6 DESIRE DEPARTMEN EMERGENCY T VISIT PHYS MODERATE SEVERITY OFFICE 52082 [facility] OUTPATIEN 6 6 PHYSICIAN KAMILA T VISIT S GROUP 15 MINUTES [facility]OSP[facility] - 6 6 [facility] - 6 6 [facility] - 6 6 [facility]EN [facility] OFFICE 85606 [facility] OUTPATIEN 6 6 PHYSICIAN KAMILA T VISIT S GROUP 15 MINUTES OFFICE 95573 [facility] OUTPATIEN 5 5 PHYSICIAN KAMILA T VISIT S GROUP 10 MINUTES OFFICE 55865 [facility] OUT[facility] 5 5 [facility] 15 MINUTES OFFICE 26560 [facility] OUT[facility] 5 5 CULAR MAT T VISIT CONSULTAN 25 TS O MINUTES [facility]OSP[facility] - 5 5 [facility] OFFICE 16323 [facility] OUTPATIEN 5 5 PHYSICIAN KAMILA T VISIT S GROUP 15 MINUTES OFFICE 16231 [facility] OUTPATIEN 5 5 [facility] 15 MINUTES HOSPITAL CURRIE - 5 5 [facility]PITAL [facility]GENC[facility] 16336 [facility] 5 5 DESIRE MAR VISIT EMERGENCY HIGH PHYS SEVERITY& THREAT FUNC OFFICE 10181 [facility] OUTPATIEN 5 5 PHYSICIAN KAMILA T VISIT S GROUP 10 MINUTES OFFICE 38966 [facility] OUTPATI[facility] 5 5 CULAR MAT T VISIT CONSULTAN 25 TS O MINUTES [facility] GOMEZ - 5 5 [facility] - 5 5 [facility] - 5 5 [facility] T OFFICE 51799 [facility] OUTPATI[facility] 5 5 CULAR MAT T VISIT CONSULTAN 40 TS O MINUTES OFFICE 03910 [facility] OUTPATIEN 5 5 PHYSICIAN KAMILA T VISIT S GROUP 15 MINUTES [facility]OSP[facility] - 5 5 [facility] T OFFICE 87120 [facility] OUT[facility] 5 5 CULAR MAT T VISIT CONSULTAN 25 TS O MINUTES [facility] - 5 5 [facility] 5 5 [facility] T OFFICE 11485 [facility] FRANCISCO OUTPATIEN 5 5 PHYSICIAN KAMILA T VISIT S GROUP 10 MINUTES OFFICE 40099 CARDIOVAS BRITANY OUTPATIEN 5 5 CULAR MAT T VISIT CONSULTAN 40 TS O MINUTES HOSPITAL G[facility]Z - 5 5 [facility] T OFFICE 87797 [facility] FRANCISCO OUTPATIEN 5 5 PHYSICIAN KAMILA T VISIT S GROUP 15 MINUTES OFFICE 71248 CARDIOVAS BRITANY OUTPATIEN 5 5 CULAR MAT T VISIT CONSULTAN 25 TS O MINUTES HOSPITAL G[facility]Z - 5 5 [facility] INC T OFFICE 41245 [facility] FR[facility] OUTPATIEN 5 5 PHYSICIAN KAMILA T VISIT S GROUP 15 MINUTES HOSPITAL WHITNEYVIE - 5 5 W OUTPATIEN REGIONAL T MEDICAL EMERGENCY 85187 [facility] DEPT 5 5 DESIRE TARAH VISIT EMERGENCY HIGH PHYS SEVERITY& THREAT FUN OFFICE 05875 [facility] FRANCISCO OUTPATIEN 5 5 PHYSICIAN KAMILA T VISIT S GROUP 15 MINUTES OFFICE 43798 [facility] ALESHIAAMMADBaljit OUTPATIEN 5 5 [facility] NEW [address] [facility]NA[facility] - 5 5 HOSPITAL INPATIENT OFFICE 73542 [facility] FRANCISCO OUTPATIEN 5 5 PHYSICIAN KAMILA T VISIT S GROUP 15 MINUTES OFFICE 46909 [facility] FRANCISCO OUTPATIEN 5 5 PHYSICIAN KAMILA T VISIT S GROUP 15 MINUTES OFFICE 82449 CARDIOVAS BLACK JAZZMINE OUTPATIEN 5 5 CULAR T NEW 60 CONSULTAN MINUTES TS HOSPITAL MEADOWVIE - 5 5 W OUTPATIEN REGIONAL T [facility] BAIRD - OTHER 5 5 [facility] G[facility] - 5 5 [facility] 90863 [facility] FRANCISCO OUTPATIEN 5 5 PHYSICIAN KAMILA T VISIT S GROUP 15 MINUTES OFFICE 63299 [facility] FRANCISCO OUTPATIEN 5 5 PHYSICIAN KAMILA T VISIT S GROUP 25 MINUTES HOSPITAL CURRIE - 5 5 [facility] T EMERGENCY 80772 [facility] 5 5 DESIRE [facility] EMERGENCY T VISIT PHYS HIGH/URGE NT SEVERITY EMERGENCY 04643 CURRIE 5 5 CO [facility] T VISIT MODERATE SEVERITY OFFICE 94460 [facility] FRANCISCO OUTPATIEN 5 5 PHYSICIAN KAMILA T NEW 20 S GROUP MINUTES OFFICE 46887 [facility] ESPOSITO OUTPATIEN 5 5 CLINIC HEN T VISIT 15 MINUTES OFFICE 79521 UNIVERSIT OUTPATIEN 5 5 Y T VISIT HOSPITAL 10 MINUTES OFFICE 14645 TIFFANIE BERNABEO OUTPATIEN 5 5 MEDICAL CECILIA T VISIT SERV 15 FOUNDATIO MINUTES [facility]ERS[facility] 92208 [facility] ESPOSITO OUTPATIEN 4 4 CLINIC HEN T VISIT 15 MINUTES OFFICE 90415 [facility] VAIBHAV OUTPATIEN 4 4 CLINIC HEN T VISIT 15 MINUTES OFFICE 53342 [facility] OUTPATIEN 4 4 CECILIA CECILIA T VISIT 15 MINUTES HOSPITAL UNIVERSIT - 4 4 Y OUTPATI HOSPITAL T OFFICE 95493 UNIVERSIT OUTPATIEN 4 4 Y T VISIT HOSPITAL 10 MINUTES OFFICE 74100 [facility] KIRK OUTPATIEN 4 4 CLINIC NHI T VISIT 25 MINUTES OFFICE 83773 [facility] ESPOSITO OUTPATIEN 4 4 CLINIC HEN T VISIT 15 MINUTES OFFICE 84685 [facility] OUTPATIEN 4 4 CLINIC T VISIT 25 MINUTES OFFICE 31157 [facility] LIEST-DREW OUTPATIEN 4 4 CLINIC SE YOSVANY T VISIT 25 MINUTES OFFICE 91239 [facility] OUTPATIEN 4 4 CECILIA CECILIA T VISIT 15 MINUTES HOSPITAL [facility] INC, - 3 3 SWABBER OUTPATIEN JESSIE CO HOS OFFICE 86411 [facility] OUTPATIEN 3 3 CECILIA CECILIA T VISIT 25 MINUTES OFFICE 12863 TAMLYN NABEELN OUTPATIEN 3 3 Apr T VISIT 25 MINUTES OFFICE 36504 TAMAREN DEBORAHAREN OUTPATIEN 3 3 Apr T VISIT 25 MINUTES OFFICE 94244 TAMAREN DEBORAHAREN OUTPATIEN 3 3 Apr T VISIT 25 MINUTES HOSPITAL UNIVERSIT - 3 3 Y OUTPATIEN HOSPITAL T OFFICE 82877 [facility] SANTOSH OUTPATIEN 3 3 CECILIA CECILIA T VISIT 15 MINUTES OFFICE 96619 UNIVERSIT OUTPATIEN 3 3 Y T VISIT HOSPITAL 25 MINUTES OFFICE 61876 MARGO LEESN OUTPATIEN 2 2 Apr T VISIT 25 MINUTES OFFICE 54105 [facility] BONDENTINO OUTPATIEN 2 2 CECILIA CECILIA T VISIT 15 MINUTES OFFICE 67948 [facility] LEESN OUTPATIEN 2 2 Apr T VISIT 25 MINUTES OFFICE 00534 MARGO LEESN OUTPATIEN 2 2 Apr T VISIT 15 MINUTES [facility] - 2 2 [facility] OFF[facility] 97006 MARGO LEESN OUTPATIEN 2 2 Apr T VISIT 15 MINUTES OFFICE 13123 MARGO LEESN OUTPATIEN 2 2 Apr T VISIT 25 MINUTES OFFICE 72047 [facility] BERNABEO OUTPATIEN 2 2 CECILIA CECILIA T VISIT 15 MINUTES HOSPITAL [facility]ERSIT - [facility] 2 [facility] 38440 [facility] LEESN OUTPATIEN 2 2 Apr T VISIT 25 MINUTES [facility] 09949 MARGO LEESN OUTPATIEN 2 2 Apr T VISIT 15 MINUTES OFFICE 79247 JHONATHAN SNYDER OUTPATIEN 2 2 T VISIT 15 MINUTES HOSPITAL UNIVERSIT - 2 2 [facility] OFF[facility] 42370 NABEELTrever DEBORAHSTIVNE OUTPATIEN 2 2 Apr T VISIT 25 MINUTES HOSPITAL JESSIE - 2 2 [facility] T OFFICE 07931 MARGO LEESTrever OUTPATIEN 1 1 CECILIA CECILIA T VISIT 25 MINUTES HOSPITAL UNIVERSIT - 1 1 [facility] T OFFICE 96577 SANTOSH BERNABEO OUTPATIEN 1 1 CECILIA CECILIA T VISIT 15 MINUTES OFFICE 77300 ROCCO VALIENTE OUTPATIEN 1 1 GRE GRE T NEW 45 MINUTES OFFICE 98312 MARGO LEESTrever OUTPATIEN 1 1 CECILIA CECILIA T VISIT 15 MINUTES HOSPITAL JESSIE - 1 1 [facility] T OFFICE 39471 [facility] LEESTrever OUTPATIEN 1 1 CLINIC CECILIA T VISIT PSC 25 MINUTES [facility] JESSIE - 1 1 [facility] T OFFICE 48500 TIFFANIE BERNABEO [facility]ECILIA [facility] V[facility] UNIVERSIT - 1 1 [facility] T OFFICE 58351 ALLRAN JR ALLRAN JR CONSULTAT 1 1 CALEB CALEB ION NEW/ESTAB PATIENT 40 MIN OFFICE 94227 [facility] DEBORAHSTIVEN OUTPATIEN 1 1 CLINIC CECILIA T VISIT PSC 15 MINUTES OFFICE 80839 [facility] DEBORAHSTIVEN OUTPATIEN 1 1 CLINIC CECILIA T VISIT PSC 25 MINUTES OFFICE 11284 ONCOLOGY JAJA [facility] HEMATOLOG T VISIT Y CARE IN 25 [facility] WHITNEYVIE [facility] 1 1 W [facility] MEDICAL OFFICE 84284 TIFFANIE BRUMFIELD OUTPATIEN 1 1 [facility] WHITNEYVIE - 1 1 W [facility] MEDICAL OFFICE 86659 ONCOLOGY SIGMUND OUTPATIEN 1 1 HEMATOLOG ADOLFO T VISIT Y CARE IN 15 MINUTES OFFICE 73292 [facility] DEBORAHAREN OUTPATIEN 1 1 CLINIC CECILIA T VISIT PSC 15 MINUTES HOSPITAL JESSIE - 1 1 [facility] OFF[facility] 31825 [facility] NABEELN OUTPATIEN 1 1 CLINIC CECILIA T VISIT PSC 25 MINUTES OFFICE 91258 [facility] DEBORAHAREN OUTPATIEN 1 1 CLINIC CECILIA T VISIT PSC 15 MINUTES OFFICE 71295 [place] [facility] OUTPATIEN 1 1 MEDICAL CECILIA T VISIT SERV 15 [facility] UNIVERSIT - 1 1 Y [facility] T OFFICE 84212 ONCOLOGY JAJA CHR OUTPATIEN 1 1 HEMATOLOG T VISIT Y CARE IN 15 MINUTES HOSPITAL MEADOWVIE - 1 1 W [facility] CURRIE - 1 1 [facility] T OFFICE 23331 MARKUSALDINI MAILE OUTPATIEN 1 1 ETHAN ETHAN T VISIT 15 MINUTES OFFICE 54887 [place] [facility] 1 MEDICAL CECILIA T VISIT SERV 15 [facility] CURRIE - [address] [facility] MEADOWVIE [facility] 0 0 W [facility] MEDICAL OFFICE 35858 RINALDINI RINALDINI [facility] 0 0 ETHAN ETHAN T VISIT 15 MINUTES HOSPITAL CURRIE - [address] [facility] CURRIE - [address] 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 MEADOWVIE [facility] 0 0 W [facility] MEDICAL OFFICE 46529 MAILE APARICIOALDINI OUTPATIEN 0 0 ETHAN ETHAN T VISIT 25 MINUTES EMERGENCY 40114 JESSIE 0 0 CO [facility] HOSPITAL T VISIT LOW/MODER SEVERITY EMERGENCY 67007 MAILE APARICIOALDINI 0 0 ETHAN ETHAN [facility] T VISIT MODERATE SEVERITY HOSPITAL JESSIE - 0 0 [facility] UNIVERSIT - 0 0 Y [facility] OFFICE 56347 TIFFANIE SANTOSH OUTPATIEN 0 0 MEDICAL CECILIA T VISIT SERV 15 FOUNDATIO MINUTES [facility] UNIVERSIT [facility] 0 0 [facility] CUR[facility]E - 0 0 [facility], 0 0 HOME [facility] JESSIE - 0 0 [facility] OFF[facility] 41440 JESSIE OUTPATIEN 0 0 CO T VISIT 5 HOSPITAL MINUTES OFFICE 75865 JESSIE OUTPATIEN 0 0 CO T VISIT 5 [facility] JESSIE - [address] [facility] JESSIE - 0 0 [facility] T OFFICE 71340 JESSIE OUTPATIEN 0 0 CO T VISIT 5 [facility] JESSIE - 0 0 [facility] T EMERGENCY 02284 JESSIE 0 0 [facility] T VISIT LIMITED/M INOR PROB EMERGENCY 14900 RINALDINI RINALDINI 0 0 , MINOR , MINOR [facility] T VISIT HIGH/URGE NT SEVERITY OFFICE 44809 RINALDINI RINALDINI OUTPATIEN 0 0 , MINOR MINOR T VISIT 10 MINUTES OFFICE 30708 ONCOLOGY JAJA, [facility] HEMATOLOG BRITTANY M T VISIT Y CARE 15 INC MINUTES HOSPITAL MEADOWVIE - 0 0 W [facility] CURRIE - 0 0 [facility] HOME [facility], 0 0 HOME [facility] JESSIE - 0 0 CO INPATIENT HOSPITAL HOSPITAL JESSIE - 0 0 [facility] T EMERGENCY 54153 JESSIE 0 0 [facility] T VISIT LOW/MODER SEVERITY EMERGENCY 55124 JESSIE 0 0 [facility] T VISIT LIMITED/M INOR PROB HOSPITAL JESSIE - 0 0 [facility] MEADOWVIE - 0 0 W [facility] OFFICE 07392 ONCOLOGY JAJA, OUTPATIEN 0 0 HEMATOLOG BRITTANY Virgen T VISIT Y CARE 25 INC MINUTES HOME [facility], 0 0 HOME [facility] T OFF[facility] 76229 RINALDINI RINALDINI OUTPATIEN 0 0 , MINOR , MINOR T VISIT 25 MINUTES OFFICE 56150 RINALDINI RINALDINI OUTPATIEN 0 0 , MINOR , MINOR T VISIT 15 MINUTES OFFICE 69006 [place] [facility] OUTPATIEN 0 0 MEDICAL , HANNAH T VISIT SERV 15 FOUNDATIO MINUTES OFFICE 37359 RINALDINI RINALDINI OUTPATIEN 0 0 , MINOR , MINOR T VISIT 15 MINUTES HOSPITAL MEADOWVIE - 0 0 W [facility] OFFICE 08121 [place] INA CONSULTAT 0 0 MEDICAL PRA ION SERV NEW/ESTAB FOUNDATIO PATIENT 30 MIN HOSPITAL UNIVERSIT - 0 0 [facility] [place] 60413 [place] [facility] OUTPATIEN 0 0 MEDICAL CECILIA T VISIT SERV 25 FOUNDATIO MINUTES OFFICE 70633 [place] [facility] CONSULTAT 0 0 MEDICAL CECILIA ION SERV NEW/ESTAB FOUNDATIO PATIENT 80 MIN HOSPITAL UNIVERSIT - 0 0 [facility] JESSIE - 8 8 [facility] T OFFICE 48955 [facility] 8 8 CO T VISIT 5 HOSPITAL MINUTES HOSPITAL JESSEI - 8 8 [facility] T OFF[facility] 54896 [facility] T VISIT 5 HOSPITAL MINUTES HOSPITAL JESSIE - 8 8 [facility] 75815 [facility] 8 CO T VISIT 5 HOSPITAL MINUTES OFFICE 14983 [facility] LEESTrever, [facility] 8 8 CLINIC [facility] 20 PSC MINUTES EMERGENCY 74955 JESSIE 8 8 CO [facility] T VISIT LIMITED/M INOR [facility]OSPITAL JESSIE - 8 8 [facility] JESSIE - 8 8 [facility] T OFFICE 03870 MAILE ESTRADAINI [facility] 8 8 , ETHAN GAXIOLA T VISIT 5 MINUTES HOSPITAL JESSIE - 8 8 [facility] T OFFICE 72498 MAILE ESTRADAINI [facility] 8 8 , ETHAN GAXIOLA M T VISIT 5 MINUTES OFFICE 16392 NATALIEINI MARKUSALDINI [facility] 8 8 , ETHAN GAXIOLA M T VISIT 5 MINUTES OFFICE 12668 NATALIEINI MARKUSALDINI [facility] 8 8 , ETHAN GAXIOLA T VISIT 5 MINUTES
--- OUTSIDE RECORDS SUMMARY | 2017-02-06 00:20 | External Medical Summary Rpt | CCD ---
Author Author , NAZ Organization NAZ Address Unknown Phone [email or web address] Care Team Providers Care Lap Hand Tool Name Role Phone YUE, YUE Unavailable Unavailable [...] Unavailable CHRISTINA RICH, Unavailable Unavailable CHRISTINA RICH PAYNE KAMILA, PAYNE Unavailable Unavailable KAMILA RING MAT, RING MAT Unavailable Unavailable HUTCHINS CAR, HUTCHINS Unavailable Unavailable CAR HUTCHINS-VISE YOSVANY, Unavailable Unavailable HUTCHINS-VISE YOSVANY BUX ANJ, BUX ANJ Unavailable Unavailable LINO CALEB, Unavailable Unavailable LINO CALEB [facility] Unavailable Unavailable [facility], [facility], Unavailable Unavailable [facility], Unavailable Unavailable [facility] Unavailable Unavailable COMPANY, [facility] ESPINO, Unavailable Unavailable ESPINO ESPINO ROZINA, Unavailable Unavailable ESPINO ROZINA SHIRAZ TONY Unavailable Unavailable CECI LOREDO, Unavailable Unavailable CECI WELDON [facility], Unavailable Unavailable [facility] JARRETT DEMARCUS, Unavailable Unavailable JARRETT DEMARCUS REAGAN HANKINS, Unavailable Unavailable REAGAN IRVIN ADR, BRANDEE Unavailable Unavailable ADR PEPPER MAR, PEPPER Unavailable Unavailable MAR DUFF, DUFF Unavailable Unavailable MOJGAN EDU, MOJGAN Unavailable Unavailable EDU BUSH, BUSH Unavailable Unavailable TERRELL JAM, Unavailable Unavailable TERRELL DAT [facility], Unavailable Unavailable [facility] Unavailable Unavailable AMBULANCE, [facility] Unavailable Unavailable AMBULANCE, [facility] Unavailable Unavailable HOSPITAL, [facility] MOJICA NAN, MOJICA Unavailable Unavailable NAN FRYMAN EUG, FRYMAN Unavailable Unavailable EUG FRANCISCO, FRANCISCO Unavailable Unavailable FRANCISCO KAMILA, FRANCISCO Unavailable Unavailable KAMILA KATE, KATE Unavailable Unavailable KAHN, KAHN Unavailable Unavailable KAHN PHI, KAHN Unavailable Unavailable PHI AMATO JONATAN, Unavailable Unavailable AMATO JONATAN HAGENSCHNEIDER, Unavailable Unavailable HAGENSCHNEIDER HAGENSCHNEIDER ULICES, Unavailable Unavailable HAGENSCHNEIDER UILCES HAGENSCHNEIDER ULICES, Unavailable Unavailable HAGENSCHNEIDER ULICES HAGENSCHNEIDER, Unavailable Unavailable NANDINI K, HAGENSCHNEIDER, NANDINI K [facility] Unavailable Unavailable [facility], [facility] Unavailable Unavailable HOSPITAL, [facility] MILLER VENANCIO, MILLER Unavailable Unavailable VENANCIO MILLER VENANCIO, MILLER Unavailable Unavailable VENANCIO JOAQUÍN MILLER S, Unavailable Unavailable JOAQUÍN MILLER S [facility], Unavailable Unavailable [facility] ROGERS JONATAN, ROGERS JONATAN Unavailable Unavailable [facility] Unavailable [facility]available [place], [facility] Unavailable Unavailable [place], [facility] KAYFAN, KAYFAN Unavailable Unavailable NANCY ABR, NANCY Unavailable Unavailable ABR [facility] Unavailable Unavailable MEDICAL G, [facility] RHONDA ERIN, RHONDA ERIN Unavailable Unavailable [facility] # Unavailable Unavailable [id number], [facility] # [id number] [facility] Unavailable Unavailable [place], [place] [...] PALACIOS CORY, PALACIOS Unavailable Unavailable CORY ROCCO GRE, Unavailable Unavailable ROCCO GRE ROCCO GRE, Unavailable Unavailable ROCCO GUERRA [facility] Unavailable Unavailable CENTER,, [facility], [facility] Unavailable Unavailable CENTER, [facility], [facility], [facility]available Unavailable ASSOCIAT, [facility] [place] Unavailable Unavailable HOSPITALIST, [facility] Unavailable Unavailable MEDICAL, [facility] Unavailable Unavailable MEDICAL CENTER, 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 [facility] Unavailable Unavailable CO HOS, 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 SHELLIE, SHELLIE Unavailable Unavailable SHELLIE IRM, SHELLIE Unavailable Unavailable IRM [facility], Unavailable Unavailable [facility] Unavailable Unavailable CLINIC, [facility] KOURTNEY HENRIK, KOURTNEY [place] Unavailable Unavailable [facility], Unavailable Unavailable [facility] HDZ VARGAS, HDZ Unavailable Unavailable [facility] Unavailable Unavailable [facility], [facility] EM FABIENNE, EM FABIENNE Unavailable Unavailable GARCIA, Unavailable Unavailable GARCIA INA PRA, INA Unavailable Unavailable PRA VAIBHAV HEN, VAIBHAV Unavailable Unavailable HEN EVERARDO JR NGOZI, EVERARDO Unavailable Unavailable JR NGOZI [facility]available [facility]available [facility], [facility] RAISSI KIET, RADONAVANI Unavailable Unavailable DAVID MCKEON REAMS, Unavailable Unavailable DAVID RINALDINI ETHAN, Unavailable Unavailable [...] Unavailable Unavailable [facility], [facility] Unavailable Unavailable [facility]Y [facility], [facility] Unavailable Unavailable PHYSICIAN SERVI, [facility] PHYSICIAN NICOLASI BRANDY DENNEY, BRANDY Unavailable Unavailable [facility] Unavailable Unavailable [facility], [facility], [facility]available Unavailable [facility], Unavailable Unavailable [facility] TODD SCO, TODD Unavailable Unavailable SCO TAMAREN CECILIA, TAMAREN Unavailable Unavailable CECILIA TAMAREN CECILIA, TAMAREN Unavailable Unavailable CECILIA TAMAREN, CHAMP, Unavailable Unavailable TAMAREN, CHAMP [facility] Unavailable Unavailable ASSIST, [facility], Unavailable Unavailable [facility] Unavailable Unavailable [facility], [facility] SANTOSH BROOKS, Unavailable Unavailable SANTOSH BROOKS, Unavailable Unavailable HANNAH URIAS, Unavailable Unavailable HANNAH FROST VITAL STEVIE, VITAL STEVIE Unavailable Unavailable [facility] # Unavailable Unavailable [id number], [facility] # [id number] BRISSA IV, Unavailable Unavailable [facility] IV PELON RASCON, PELON Unavailable Unavailable TARAH TORRES KAMILA, BRIAN Unavailable Unavailable KAMILA LAURENCE GLE, LAURENCE Unavailable Unavailable [facility] Unavailable [facility], Unavailable [facility] ZAYDAN, ZAYDAN Unavailable Unavailable ZAYDAN MUH, ZAYDAN Unavailable Unavailable [facility] Purpose Continuity of Care Document - 05-14-2007 through 2016 Problems Code Diagnosis DOS Provider Status J449 CHRONIC 12-22-2016 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 UNS EQUIPME C329 MALIGNANT 12-13-2016 [facility] 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PHYSICIANS LARYNX GROUP UNSPECIFIED 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 R7981 ABNORMAL 12-13-2016 [facility] BLOOD-GAS PHYSICIANS LEVEL GROUP R74957 OTHER LONG 12-13-2016 [facility] TERM PHYSICIANS CURRENT GROUP DRUG THERAPY E871 HYPO-OSMOLA 11-15-2016 [place] [facility]ITALIST HYPONATREMI A I959 HYPOTENSION 11-15-2016 [place] [facility]OSPITALIST UNSPECIFIED N179 ACUTE 11-15-2016 [place] [facility]OSPITAL[facility] FAILURE UNSPECIFIED R079 CHEST PAIN 11-15-2016 [place] UNSPECIFIED HOSPITALIST R0902 HYPOXEMIA 11-15-2016 [facility] N72196 DECREASED 11-14-2016 [place] WHITE BLOOD [facility] CELL COUNT HOSPITAL UNSPECIFIED J441 CHRONIC 11-14-2016 [facility] OBSTRUCTIVE N EMERGENCY PULMONARY PHYS DZ W/EXACERBAT ION J9601 ACUTE 11-14-2016 [place] RESPIRATORY [facility] FAILURE HOSPITAL WITH HYPOXIA N183 CHRONIC 11-14-2016 [place] KIDNEY [facility] DISEASE HOSPITAL STAGE 3 MODERATE R0602 SHORTNESS 11-14-2016 [facility] OF BREATH N EMERGENCY PHYS C760 MALIGNANT 10-14-2016 [facility] 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MEDICAL HEAD FACE CLINIC AND NECK G459 TRANSIENT 10-04-2016 [facility] ISCHEMIC MEDICAL G ATTACK UNSPECIFIED I779 DISORDER OF 10-04-2016 [facility] ARTERIES HEALTH AND MEDICAL G ARTERIOLES UNSPECIFIED I10 ESSENTIAL 10-03-2016 [facility] PRIMARY HEALTH HYPERTENSIO MEDICAL G N I6521 OCCLUSION 10-03-2016 [facility] AND HEALTH STENOSIS OF MEDICAL G RIGHT CAROTID ARTERY R531 WEAKNESS 10-03-2016 [facility] D696 THROMBOCYTO 10-02-2016 [facility] UNSPECIFIED E039 HYPOTHYROID 10-02-2016 [facility] UNSPECIFIED G4733 OBSTRUCTIVE 10-02-2016 [facility] SLEEP [facility] APNEA ADULT PEDIATRIC 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 I6529 OCCLUSION & 10-02-2016 [place] STENOSIS [facility] AMBULANCE CAROTID ARTERY J189 PNEUMONIA 10-02-2016 [facility] ORGANISM J440 COPD WITH 10-02-2016 [facility] ACUTE [facility] RESPIRATORY INFECTION R52 PAIN 10-02-2016 [facility] Z8673 PERSONAL HX 10-02-2016 [facility] TIA & HOSPITAL CEREB INFARCT NO RESID DEFICIT A419 SEPSIS 10-01-2016 [facility] ORGANISM HOSPITAL E8342 HYPOMAGNESE 10-01-2016 [facility] CELESTINE N EMERGENCY PHYS E860 DEHYDRATION 10-01-2016 [facility] N EMERGENCY PHYS J158 PNEUMONIA 10-01-2016 [facility] DUE TO N EMERGENCY OTHER PHYS SPECIFIED BACTERIA J219 ACUTE 10-01-2016 [facility] BRONCHIOLIT [facility]IOLOGY IS ASSOCIAT UNSPECIFIED Z90014 GENERALIZED 10-01-2016 [facility] ABDOMINAL RADIOLOGY TENDERNESS ASSOCIAT R42 DIZZINESS 10-01-2016 [facility] AND RADIOLOGY GIDDINESS ASSOCIAT R509 FEVER 10-01-2016 [facility] UNSPECIFIED RADIOLOGY ASSOCIAT R51 HEADACHE 10-01-2016 [facility] RAD[facility] ASSOCIAT E61843 PRESENCE OF 10-01-2016 [facility] IMPLANTS AND GRAFTS C159 MALIGNANT 09-21-2016 [facility] 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HOME ESOPHAGUS MEDICAL UNSPECIFIED EQUIPME X88967 UNSPECIFIED 09-06-2016 [facility] DEFORMITY PHYSICIANS OF GROUP UNSPECIFIED FINGERS M4726 OTH 08-12-2016 [facility]IS [facility] INC W/RADICULOP ATHY LUMBAR REGION S82214 SPONDYLOSIS 08-12-2016 NEIDA CORRAE, W/O , PSC MYELOPATH/R ADICULOPATH Y LUMB RGN R600 LOCALIZED 07-31-2016 [facility] EDEMA RADIOLOGY ASSOCIAT S60958X LAC W/O FB 07-31-2016 [facility] FINGER W/O HOSPITAL DAMAGE NAIL INIT Z22627F LAC W/O FB 07-31-2016 [facility] FINGER W/O HOSPITAL DAMAGE NAIL INIT H95503G LAC W/O FB 07-31-2016 [facility] FINGER W/O HOSPITAL DAMAGE NAIL INIT J72480Z LACERATION 07-31-2016 [facility] W/O FOREIGN N EMERGENCY BODY RT PHYS HAND INITIAL ENC C38304P LACERATION 07-31-2016 [facility] W/O FOREIGN N EMERGENCY BODY LT PHYS HAND INITIAL ENC T61507V PUNCTURE 07-31-2016 [facility] WOUND W/FB RADIOLOGY LT HAND ASSOCIAT INITIAL ENC I5726VP UNSPECIFIED 07-31-2016 [facility] INJURY LT RADIOLOGY WRIST HAND ASSOCIAT FINGERS INITIAL Y9389 ACTIVITY 07-31-2016 [facility] OTHER N EMERGENCY SPECIFIED PHYS Z7901 SNF 07-31-2016 [place] CURRENT USE [facility] ANTICOAGULA NTS Z8589 PERSONAL HX 07-31-2016 [facility] NEOPLASM [facility] OTH ORGANS & SYSTEMS T53056 PERSONAL 07-31-2016 [place] HISTORY OF [facility] OTHER [facility] SPECIFIED CONDITIONS Z955 PRESENCE OF 07-31-2016 [place] CORONARY [facility] ANGIOPLASTY HOSPITAL IMPLANT & GRAFT H8110 BENIGN 07-17-2016 [facility] UNSPECIFIED EAR J40 BRONCHITIS 07-17-2016 [facility] SPECIFIED HOSPITAL ACUTE OR CHRONIC J439 EMPHYSEMA 07-17-2016 [facility] UNSPECIFIED RADIOLOGY ASSOCIAT J9811 ATELECTASIS 07-17-2016 [facility] RADIOLOGY ASSOCIAT R110 NAUSEA 07-17-2016 [facility] N EMERGENCY PHYS Z8521 PERSONAL 07-17-2016 [facility] MALIGNANT HOSPITAL 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LARYNX C53726 OTHER 07-17-2016 [facility] STATES M5136 OTH 07-09-2016 [facility] INTERVERTEB [facility] RAL DISC INC DEGEN LUMBAR REGION M5406 PANNICULITI 07-09-2016 [facility] S AFFCT [facility] HOS[facility] REGIONS NCK INC BACK LUMB REGION G8929 OTHER 06-18-2016 [facility] CHRONIC [facility] PAIN INC R5383 OTHER 06-18-2016 [facility] FATIGUE PHYSICIANS GROUP Z23 ENCOUNTER 06-18-2016 [facility] FOR PHYSICIANS IMMUNIZATIO GROUP N M5126 OT 05-14-2016 SANTANA HAQ MD, PSC RAL DISC DISPLACEMEN T LUMBAR RGN G629 POLYNEUROPA 04-24-2016 [facility] THY PHYSICIANS UNSPECIFIED GROUP G2581 RESTLESS 03-27-2016 [facility] LEGS PHYSICIANS SYNDROME GROUP J690 PNEUMONITIS 03-27-2016 [facility] DUE TO PHYSICIANS INHALATION GROUP OF FOOD AND VOMIT R1310 DYSPHAGIA 03-27-2016 [facility] UNSPECIFIED PHYSICIANS GROUP M5416 RADICULOPAT 03-18-2016 [facility] HY LUMBAR MEM [facility]OS[facility] REGION INC R030 ELEVATED 02-28-2016 [facility] BLOOD-PRESS PHYSICIANS URE READING GROUP WITHOUT DX HTN I951 ORTHOSTATIC 01-02-2016 [facility] PHYSICIANS HYPOTENSION GROUP M1288 OTHER 01-02-2016 [facility] SPECIFIC PHYSICIANS ARTHROPATHI GROUP ES NEC OTHER SPEC SITE R1319 OTHER 12-27-2015 [facility]SPHAGIA [facility]ICAL [facility]INIC R64 CACHEXIA 12-27-2015 [facility] R911 SOLITARY 12-27-2015 [facility] PULMONARY MEDICAL NODULE CLINIC 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 R55 SYNCOPE AND 12-26-2015 [facility] COLLAPSE PHYSICIANS GROUP I739 PERIPHERAL 12-22-2015 [facility] [facility] UNSPECIFIED J329 CHRONIC 12-22-2015 [place] SINUSITIS [facility] HOSPITAL K219 GASTRO-ESOP 12-22-2015 [facility] WITHOUT ESOPHAGITIS M4316 SPONDYLOLIS 12-05-2015 [facility]ICAL LUMBAR IMAGING ASS REGION Z048 ENCOUNTER 12-05-2015 [place] [facility] IMAGING ASS OTHER SPEC REASONS I771 STRICTURE 12-01-2015 [facility] OF ARTERY [facility] INC R1311 DYSPHAGIA 11-30-2015 [place] ORAL [facility] R1313 DYSPHAGIA 11-30-2015 [place] [facility]AL [facility] R918 OTHER 11-29-2015 [facility] ABNORMAL FINDING OF LUNG FIELD Z8701 PERSONAL 11-29-2015 [facility] HISTORY OF HOSPITAL PNEUMONIA RECURRENT I6523 OCCLUSION & 10-26-2015 [place] STENOSIS MEDICAL BILATERAL IMAGING ASS CAROTID ARTERIES R0989 OTH SPEC SX 10-26-2015 [place] & SIGNS MEDICAL INVLV THE IMAGING ASS CIRC & RESP SYS Z720 TOBACCO USE 10-26-2015 [facility] D649 ANEMIA 09-22-[address] [facility]PECIF[facility] E34590 UNSPECIFIED 09-22-2015 [facility] UNCOMPLICAT CENTER [facility] ED J850 GANGRENE 09-22-2015 [facility] NECROSIS OF CENTER [facility] LUNG Y844 ASPIRATION 08-31-2015 [facility] ABNORMAL [place] REACTION PT/LATR COMP V29202 ENCOUNTER 08-24-2015 [facility] [place] OTHER [facility] PREPROCEDUR AL EXAMINATION I36606 PERSONAL 08-24-2015 [facility] HISTORY [facility] VENOUS THROMBOSIS& EMBOLISM Z483 AFTERCARE 08-16-2015 [facility] SURGERY FOR NEOPLASM Z4682 ENCOUNTER 08-15-2015 [place] FITTING & MEDICAL ADJUST IMAGING ASS NON-VASCULA R CATHETER E873 ALKALOSIS 08-11-2015 [facility] J90 PLEURAL 08-08-2015 [facility] EFFUSION [facility] NOT HOSPI ELSEWHERE CLASSIFIED R846 ABN 08-08-2015 [facility] CYTOLOGICAL [facility] FIND IN HOSPI SPEC RESP ORGN & THOR R0789 OTHER CHEST 08-03-2015 [facility] PAIN N PHYSICIAN SERVI I259 CHRONIC 08-02-2015 [facility] ISCHEMIC PHYSICIANS HEART ASSIST DISEASE UNSPECIFIED R042 HEMOPTYSIS 08-02-2015 [facility] E785 HYPERLIPIDE 07-28-2015 [facility] CELESTINE N PHYSICIAN UNSPECIFIED SERVI J168 PNEUMONIA 07-27-2015 [facility] DUE TO N EMERGENCY OTHER SPEC PHYS INFECTIOUS ORGANISMS J111 FLU D/T 07-08-2015 [facility] UNIDENTIFIE N EMERGENCY D FLU VIRUS PHYS W/OTH RESP MANIF J209 ACUTE 07-08-2015 [facility] BRONCHITIS N EMERGENCY UNSPECIFIED PHYS R05 COUGH 07-08-2015 [facility] N EMERGENCY PHYS M542 CERVICALGIA 05-17-2015 [facility] PHYSICIANS GROUP B370 CANDIDAL 04-13-2015 [facility] STOMATITIS [facility] R296 REPEATED 04-13-2015 [facility] [place] [facility] I422 OTHER 03-31-2015 [facility] HYPERTROPHI [facility]OS[facility] C INC CARDIOMYOPA THY J029 ACUTE 03-17-2015 [facility] PHARYNGITIS [facility] UNSPECIFIED J99538 OTHER 03-17-2015 [facility] C323 MALIGNANT 03-08-2015 [facility] 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[facility] CARTILAGE J181 LOBAR 03-06-2015 [facility] PNEUMONIA N PHYSICIAN UNSPECIFIED SERVI ORGANISM J188 OTHER 03-06-2015 [facility] PNEUMONIA N EMERGENCY UNSPECIFIED PHYS ORGANISM J9690 RESP FAIL 03-06-2015 [facility] W/HYPOXIA/H YPERCAPNIA N289 DISORDER OF 03-06-2015 [facility] UNSPECIFIED M545 LOW BACK 02-22-2015 [facility] PAIN PHYSICIANS GROUP I6503 OCCLUSION & 02-17-2015 [place] [facility] MEDICAL BILATERAL IMAGING ASS VERTEBRAL ART 43374 OTHER 01-24-2015 [facility] CHRONIC PHYSICIANS PAIN GROUP 496 CHRONIC 01-24-2015 [facility] AIRWAY PHYSICIANS OBSTRUCTION GROUP NEC 7244 THORACIC/MANDO 01-24-2015 [facility] MBOSACRAL PHYSICIANS NEURITIS/RA GROUP DICULITIS UNSPEC 1509 MALIGNANT 01-22-2015 [facility] 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HOME ESOPHAGUS MEDICAL UNSPECIFIED EQUIPME SITE 40961 COR 01-17-2015 [facility] 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 T 39745 OTHER 01-17-2015 [facility] HYPERTROPHI [facility]OS[facility] C INC CARDIOMYOPA THY 17987 OCCLUSION&S 01-17-2015 [facility] TENOS LAR CAROTID ART CONSULTANTS W/O O MENTION INFARCT 5853 CHRONIC 01-17-2015 [facility] KIDNEY LAR DISEASE CONSULTANTS STAGE III O (MODERATE) 7851 PALPITATION 01-17-2015 [facility] S [facility] INC 83116 OCCL&STENOS 01-13-2015 [facility] MX&BILAT MEDICAL PRECERBRL IMAGING ASS ART W/O INFARCT 7804 DIZZINESS 01-13-2015 [facility] AND [facility] GIDDINESS INC 7859 OTHER 01-03-2015 [facility] SYMPTOMS LAR INVOLVING CONSULTANTS CARDI[facility] O LAR SYSTEM 7802 SYNCOPE AND 12-27-2014 [facility] COLLAPSE LAR CONSULTANTS O V1002 PERS HX MAL 12-20-2014 [facility] NEOPLSM [facility] OTH&UNS INC PART ORL CAV&PHARYNX 2724 OTHER AND 11-23-2014 [facility] UNSPECIFIED LAR CONSULTANTS HYPERLIPIDE O CELESTINE 40229 UNSPEC HTN 11-23-2014 [facility] HEART LAR DISEASE CONSULTANTS WITHOUT O HEART FAIL 87617 OTHER 11-17-2014 [facility] MALAISE AND PHYSICIANS FATIGUE GROUP 69297 SHORTNESS 11-15-2014 [facility] OF BREATH RADIOLOGY ASSOCIAT V1254 PERSONAL HX 11-14-2014 [facility] TIA & CI REGIONAL W/O MEDICAL RESIDUAL DEFICITS V5866 LONG-TERM 11-14-2014 [facility] USE OF REGIONAL ASPIRIN MEDICAL 8488 OTHER 11-10-2014 [facility] SPECIFIED PHYSICIANS SITES OF GROUP SPRAINS AND STRAINS 2449 UNSPECIFIED 11-01-2014 [facility] HYPOTHYROID ISM 80817 OBSTRUCTIVE 11-01-2014 [facility] SLEEP [facility] APNEA 4019 UNSPECIFIED 11-01-2014 [facility] HYPERTENSIO N 36950 ESOPHAGEAL 11-01-2014 [facility] REFLUX HOSPITAL V462 DEPENDENCE 11-01-2014 [facility] ON [facility] FOR SUPPLEMENTA L OXYGEN 84302 OBSTRUCTIVE 10-31-2014 [facility] CHRONIC PHYSICIANS BRONCHITIS GROUP WITH EXACERBATIO N 4111 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 CONSULTANTS O 16773 RESTLESS 10-27-2014 [facility] LEGS REGIONAL SYNDROME MEDICAL 4139 OTHER AND 10-27-2014 [facility] UNSPECIFIED RADIOLOGY ANGINA ASSOCIAT [place] 21496 CORONARY 10-27-2014 [facility] OSIS [facility]ICAL CORONARY ARTERY 4370 CEREBRAL 10-27-2014 [facility] [place] A[facility] RADIOLOGY OSIS ASSOCIAT 7840 HEADACHE 10-27-2014 [facility] RAD[facility]Y ASSOCIAT 13494 NONSPECIFIC 10-27-2014 [facility] ABNORMAL LAR ELECTROCARD CONSULTANTS IOGRAM O V1089 PERSONAL 10-27-2014 [facility] HISTORY REGIONAL MALIGNANT MEDICAL NEOPLASM OTHER SITE 62337 HYPERTROPHY 10-21-2014 [facility] W/O UR OBST & OTH LUTS V700 ROUTINE 10-21-2014 [facility] MEDICAL EXAM@HEALTH CARE FACL 54266 DYSPHONIA 09-13-2014 [facility] PHYSICIANS GROUP 5781 BLOOD IN 08-30-2014 [facility] STOOL PHYSICIANS GROUP 93643 OBSTRUCTIVE 08-26-2014[facility]IOLOG[facility] BRONCHITIS ASSOCIAT WITHOUT EXACERBAT 4919 UNSPECIFIED 08-26-2014 [facility]ERGENCY BRONCHITIS PHYS 490 BRONCHITIS 08-23-2014 [facility] NOT PHYSICIANS SPECIFIED GROUP ACUTE OR CHRONIC 3670 HYPERMETROP 08-04-2014 [facility] 7245 UNSPECIFIED 07-05-2014 [facility] V5869 LONG-TERM 07-05-2014 [facility] (CURRENT) [facility] USE OF HOLDINGS OTHER MEDICATIONS 1419 MALIGNANT 05-09-2014 [place] 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[facility] TONG[facility] UNSPECIFIED SITE 1611 MALIGNANT 05-09-2014 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[facility] SUPRAGLOTTI S V153 PERS HX 05-09-2014 [facility] PRESENTING HAZARDS HEALTH V8741 PERSONAL 05-09-2014 [facility] HISTORY OF [facility] ANTINEOPLAS TIC CHEMOTHERAP Y 1619 MALIGNANT 11-12-2013 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[place]ARY[place] UNSPECIFIED SITE 1950 MALIGNANT 11-12-2013 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[facility] HEAD FACE AND NECK 00637 OTHER 11-12-2013 [place] [facility] DISEASES OF SERV LARYNX FOUNDATIO 4928 OTHER 11-12-2013 [facility] EMPHYSEMA SERV [facility] V1021 PERSONAL 11-12-2013 [facility] H[facility]ORY OF SERV MALIGNANT FOUNDATIO 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LARYNX V676 COMBINED 11-12-2013 [place] [facility] TREATMENT SERV FOLLOW-UP FOUNDATIO EXAMINATION V711 OBSERVATION 11-12-2013 [facility] SUSPECTED MALIGNANT NEOPLASM 5277 DISTURBANCE 11-03-2013 [facility] OF CLINIC SALIVARY SECRETION 07312 SPASM OF 11-03-2013 [facility] 7808 GENERALIZED 11-03-2013 [facility] HYPERHIDROS HOLDINGS IS 4660 ACUTE 08-03-2013 [facility] BRONCHITIS [facility]INIC V0481 NEED 05-21-2013 [facility] PROPHYLACTI CLINIC C VACCINATION &INOCULATIO N FLU 7962 ELEVATED BP 02-23-2013 [facility] READING 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 [facility] HYPERTENSIO HOS N 193 MALIGNANT 11-02-2012 [facility] 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[place] THYROID GLAND 4785 OTHER 10-20-2012 [facility] DISEASES OF VOCAL CORDS 93419 OTHER 10-20-2012 [facility]NA[facility]IO DISEASES OF LUNG NOT ELSEWHERE CLASSIFIED 7224 DEGENERATIO 10-20-2012 PA[facility]NA[facility] N OF CERVICAL INTERVERTEB RAL DISC 59455 ACUTE 08-14-2012 TAMSTIVEN [facility]OOKS ESOPHAGITIS 66769 OTHER 06-22-2012 [facility] MONONEURITI S OF LOWER LIMB 46125 INSOMNIA 05-20-2012 [facility] UNSPECIFIED 94599 DYSPHAGIA 05-20-2012 [facility] UNSPECIFIED [facility]INGS 72693 OTHER 05-11-2012 BRIAN KAMILA NONSPECIFIC ABNORMAL FINDING OF LUNG FIELD 4779 ALLERGIC 04-03-2012 [facility] RHINITIS CAUSE UNSPECIFIED 02691 HYPERSOMNIA 11-20-2011 [facility] 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 [facility] HOS 31410 SENSORINEUR 11-05-2011 [facility] LOSS ASYMMETRICA L 7081 IDIOPATHIC 09-26-2011 [facility] URTICARIA 7862 COUGH 09-26-2011 [facility] 67239 OTHER 09-18-2011 [facility] OF SERV [facility] CAVITY AND SINUSES 73869 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07-12-2011 [facility] NATV ART RADIOLOGY EXTREM ASSOCIAT W/INTERMIT CLAUDICAT 31625 OTHER 07-12-[facility] SPECIFIED RADIOLOGY DISORDER OF ASSOCIAT INTESTINES 86494 HYPERPLASIA 07-12-2011 [facility], PROSTATE 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 UNS W/O UR [facility] OBST & OTH HOS LUTS 24177 EFFUSION OF 07-12-2011 [facility] LOWER LEG RADIOLOGY JOINT ASSOCIAT 7295 PAIN IN 07-12-2011 [facility], SOFT 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 TISSUES OF [facility] LIMB HOS 2348 CARCINOMA 07-08-2011 [facility] IN SITU OF OTHER SPECIFIED SITES V7283 OTHER 07-08-2011 [facility], SPECIFIED 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 PRE-OPERATI [facility] VE HOS EXAMINATION 48147 DEHYDRATION 05-03-2011 [facility] HOSPITAL 00932 MUSCLE 05-03-2011 [facility] WEAKNESS (GENERALIZE D) 07737 CHEST PAIN 05-03-2011 [facility] UNSPECIFIED RADIOLOGY ASSOCIAT V123 PERSONAL 05-03-2011 [facility] HISTORY HOSPITAL DISEASES BLD&BLD-FOR TAMI ORGANS 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 7242 LUMBAGO 03-12-2011 [facility] ULICES 98178 OTHER 03-12-2011 [facility] INJURY OF [facility] ULICES OTHER SITES OF TRUNK V551 ATTENTION 12-25-2010 [facility] JR TO [facility] GASTROSTOMY 6828 CELLULITIS 12-21-2010 [facility] OF OTHER SPECIFIED SITE 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 7841 THROAT PAIN 10-16-2010 [facility] 990 EFFECTS OF 07-27-2010 [facility] UNSPECIFIED 21411 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 58937 DYSPHAGIA 05-29-2010 [facility] AL PHASE V573 CARE 05-29-2010 [facility] [...] NEOPLASM REGIONAL OTHER MEDICAL SPECIFIED SITES LARYNX 32957 CLOSED 02-17-2010 [facility] FRACTURE OF RADIOLOGY ONE RIB ASSOCIAT 2630 MALNUTRITIO 01-25-2010 [facility] DE[facility] 2639 UNSPECIFIED 01-25-2010 [facility] PROTEIN-VASQUEZ ORIE MALNUTRITIO N 9092 LATE EFFECT 01-25-2010 [facility] OF [facility] RADIATION 70208 HYPERCALCEM 01-22-2010 [facility] IA HOSPITAL 50658 OBESITY, 01-22-2010 [facility] UNSPECIFIED HOSPITAL 5849 ACUTE 01-22-2010 [facility] FAILURE UNSPECIFIED 7231 CERVICALGIA 01-22-2010 [facility] HOSPITAL 80853 LOSS OF 01-22-2010 [facility] 7881 DYSURIA 01-22-2010 [facility] HOSPITAL 08320 ABDOMINAL 01-22-2010 [facility] PAIN RIGHT HOSPITAL UPPER QUADRANT 4555 EXTERNAL 01-16-2010 [facility] HEMORRHOIDS ETHAN WITH OTHER COMPLICATIO N 31771 ANAL OR 01-16-2010 [facility] RECTAL PAIN ETHAN 15861 OTHER 01-10-2010 [facility] SPECIFIED RADIOLOGY DISORDER OF ASSOCIAT THE ESOPHAGUS 07771 ABDOMINAL 12-19-2009 [facility] PAIN, LEFT ETHAN UPPER QUADRANT 89970 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[facility] 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 4580 ORTHOSTATIC 12-14-2009 [facility] HYPOTENSION 4589 UNSPECIFIED 12-14-2009 [facility] HYPOTENSION V444 STATUS OTH 12-14-2009 [facility] OPENING GI TRACT V4589 OTHER 12-14-2009 [facility] L STATUS OTHER V662 CONVALESCEN 12-14-2009 [facility] FOLLOWING CHEMOTHERAP Y 2720 PURE 12-12-2009 [facility] TEROLEMIA 412 OLD 12-12-2009 [facility] INFARCTION 4786 EDEMA OF 12-12-2009 [facility] 7856 ENLARGEMENT 12-01-2009 [facility] OF LYMPH SERV NODES FOUNDATIO 486 PNEUMONIA, 11-23-2009 [facility] UNSPECIFIED 2793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 08 FA la OT 4 RI bl C LY e [address] MERYL MG TA BL ET 15 08 08 00 20 10 SO 29 No Ac 68 -2 -2 .0 PE 14 t ti 60 2- 8- 00 RS 39 Av ve 10 20 20 ai 20 08 08 FA la 5 RI bl LY e DR SHETH FL 60 08 08 00 16 7 SO 29 No Ac UT 50 -1 -2 .0 PE 08 t ti IC 50 4- 8- 00 RS 07 Av ve 82 20 20 ai ON 90 08 08 FA la E 1 RI bl OH LY e OP 50 UG MC G SP RA Y 66 01 08 05 30 30 YO 15 No Ac 79 -2 -2 0. UR 36 t ti 40 8- 8- 00 1 Av ve 00 20 20 0 PH ai 26 08 08 AR la 0 MA bl CY e 00 08 08 00 20 5 SO 29 No Ac 60 -1 -2 .0 PE 05 t ti 35 2- 8- 00 RS 68 Av ve 46 20 20 ai 83 08 08 FA la 2 RI bl LY e UG 00 08 08 00 20 4 SO 29 No Ac 59 -1 -2 .0 PE 06 t ti 10 3- 8- 00 RS 85 Av ve 34 20 20 ai 90 08 08 FA la 5 RI bl LY e UG 00 08 08 00 80 10 SO 29 No Ac 78 -1 -2 .0 PE 06 t ti 12 3- 8- 00 RS 84 Av ve 11 20 20 ai 20 08 08 FA la 1 RI bl LY e UG 00 08 08 00 21 6 SO 29 No Ac 55 -1 -2 .0 PE 08 t ti 50 4- 8- 00 RS 08 Av ve 30 20 20 ai 13 08 08 FA la 8 RI bl LY e DR UG PE 45 07 08 00 60 1 SO 28 No Ac RM 80 -1 -0 .0 PE 86 t ti ET 20 6- 1- 00 RS 97 Av ve HR 26 20 20 ai IN 93 08 08 FA la 7 RI bl 5% LY e CR DR EA UG M 66 01 08 04 30 30 YO 15 No Ac 79 -2 -0 0. UR 36 t ti 40 8- 1- 00 1 Av ve 00 20 20 0 PH ai 26 08 08 AR la 0 MA bl CY e LI 00 10 07 00 30 30 SO 26 No Ac PI 07 -2 -1 .0 PE 59 t ti TO 10 9- 7- 00 RS 29 Av ve R 15 20 20 ai 40 72 07 08 FA la 3 RI bl MG LY e TA DR BL UG ET OH 37 07 07 00 56 28 SO 28 No Ac IL 00 -0 -1 .0 PE 78 t ti OS 00 7- 7- 00 RS 89 Av ve EC 45 20 20 ai 50 08 08 FA la OT 4 RI bl C LY e [address] UG MG TA BL ET TH 50 04 07 03 60 30 SO 28 No Ac EO 11 -0 -1 .0 PE 10 t ti PH 10 8- 7- 00 RS 88 Av ve YL 48 20 20 ai LI 20 08 08 FA la NE 2 RI bl LY e ER DR 20 UG 0 MG TA BL ET AM 00 06 07 00 30 30 SO 28 No Ac IT 78 -2 -0 .0 PE 69 t ti RI 11 3- 3- 00 RS 84 Av ve PT 48 20 20 ai YL 71 08 08 FA la IN 0 RI bl E LY e HC L DR 25 UG MG TA B TR 65 06 07 00 90 30 SO 28 No Ac AM 16 -2 -0 .0 PE 69 t ti AD 20 3- 3- 00 RS 86 Av ve OL 62 20 20 ai 75 08 08 FA la HC 0 RI bl L LY e 50 DR MG UG TA BL ET 66 01 07 03 30 30 YO 15 No Ac 79 -2 -0 0. UR 36 t ti 40 8- 3- 00 1 Av ve 00 20 20 0 PH ai 26 08 08 AR la 0 MA bl CY e LI 00 02 06 03 30 30 SO 27 No Ac PI 07 -2 -1 .0 PE 67 t ti TO 10 1- 2- 00 RS 83 Av ve R 15 20 20 ai 40 72 08 08 FA la 3 RI bl MG LY e TA DR BL UG ET OH 37 03 06 02 56 28 SO 28 No Ac IL 00 -2 -1 .0 PE 02 t ti OS 00 7- 2- 00 RS 17 Av ve EC 35 20 20 ai 90 08 08 FA la OT 7 RI bl C LY e [address] UG MG TA BL ET TH 50 04 06 02 60 30 SO 28 No Ac EO 11 -0 -1 .0 PE 10 t ti PH 10 8- 2- 00 RS 88 Av ve YL 48 20 20 ai LI 20 08 08 FA la NE 2 RI bl LY e ER DR 20 UG 0 MG TA BL ET 66 01 06 02 30 30 YO 15 No Ac 79 -2 -0 0. UR 36 t ti 40 8- 5- 00 1 Av ve 00 20 20 0 PH ai 26 08 08 AR la 0 MA bl CY e OH 37 03 05 01 56 28 SO 28 No Ac IL 00 -2 -2 .0 PE 02 t ti OS 00 7- 2- 00 RS 17 Av ve EC 45 20 20 ai 50 08 08 FA la OT 3 RI bl C LY e [address] UG MG TA BL ET LI 00 02 05 02 30 30 SO 27 No Ac PI 07 -2 -2 .0 PE 67 t ti TO 10 1- 2- 00 RS 83 Av ve R 15 20 20 ai 40 72 08 08 FA la 3 RI bl MG LY e TA DR BL UG ET TH 50 04 05 01 60 30 SO 28 No Ac EO 11 -0 -2 .0 PE 10 t ti PH 10 8- 2- 00 RS 88 Av ve YL 48 20 20 ai LI 20 08 08 FA la NE 2 RI bl LY e ER DR 20 UG 0 MG TA BL ET BE 68 04 04 00 20 20 SO 28 No Ac NZ 38 -0 -2 .0 PE 10 t ti ON 20 8- 4- 00 RS 89 Av ve AT 24 20 20 ai AT 80 08 08 FA la E 1 RI bl 20 LY e [address] UG CA PS UL E 63 04 04 00 12 30 SO 28 No Ac 82 -0 -2 0. PE 10 t ti 40 8- 4- 00 RS 87 Av ve 00 20 20 0 ai 81 08 08 FA la 0 RI bl LY e DR UG AZ 00 04 04 00 6. 5 SO 28 No Ac IT 78 -0 -2 00 PE 10 t ti HR 11 8- 4- 0 RS 86 Av ve OM 49 20 20 ai YC 66 08 08 FA la IN 8 RI bl LY e [address] MG UG TA BL ET 00 04 04 00 21 6 SO 28 No Ac 55 -0 -2 .0 PE 10 t ti 50 8- 4- 00 RS 85 Av ve 30 20 20 ai 13 08 08 FA la 8 RI bl LY e DR UG TH 50 04 04 00 60 30 SO 28 No Ac EO 11 -0 -2 .0 PE 10 t ti PH 10 8- 4- 00 RS 88 Av ve YL 48 20 20 ai LI 20 08 08 FA la NE 2 RI bl LY e ER DR 20 UG 0 MG TA BL ET OH 37 03 04 00 56 28 SO 28 No Ac IL 00 -2 -1 .0 PE 02 t ti OS 00 7- 0- 00 RS 17 Av ve EC 45 20 20 ai 50 08 08 FA la OT 3 RI bl C LY e [address] UG MG TA BL ET LI 00 02 04 01 30 30 SO 27 No Ac PI 07 -2 -1 .0 PE 67 t ti TO 10 1- 0- 00 RS 83 Av ve R 15 20 20 ai 40 72 08 08 FA la 3 RI bl MG LY e TA DR BL UG ET 66 01 04 01 30 30 YO 15 No Ac 79 -2 -0 0. UR 36 t ti 40 8- 7- 00 1 Av ve 00 20 20 0 PH ai 26 08 08 AR la 0 MA bl CY e LI 00 02 03 00 30 30 SO 27 No Ac PI 07 -2 -2 .0 PE 67 t ti TO 10 1- 6- 00 RS 83 Av ve R 15 20 20 ai 40 72 08 08 FA la 3 RI bl MG LY e TA DR BL UG ET 66 01 03 00 30 30 YO 15 No Ac 79 -2 -2 0. UR 36 t ti 40 8- 6- 00 1 Av ve 00 20 20 0 PH ai 26 08 08 AR la 0 MA bl CY e OH 37 01 03 01 56 28 SO 27 No Ac IL 00 -1 -2 .0 PE 26 t ti OS 00 4- 6- 00 RS 51 Av ve EC 45 20 20 ai 50 08 08 FA la OT 3 RI bl C LY e [address] UG MG TA BL ET LI 00 10 03 02 30 30 SO 26 No Ac PI 07 -2 -2 .0 PE 59 t ti TO 10 9- 5- 00 RS 30 Av ve R 15 20 20 ai 40 72 07 08 FA la 3 RI bl MG LY e TA DR BL UG ET OH 37 01 03 00 56 28 SO 27 No Ac IL 00 -1 -2 .0 PE 26 t ti OS 00 4- 5- 00 RS 51 Av ve EC 45 20 20 ai 50 08 08 FA la OT 3 RI bl C LY e [address] [...] 0.5 ML DOSA GE IM USE IIV3 03-28 141 REGAN No REGAN 2-20 DOMONIQUE DOMONIQUE VACC 11 CECILIA INE SPLI T VIRU CECILIA S 0.5 ML DOSA GE IM USE Procedures Procedure DOS Code Location Performer Comment O2 CONC 1 E1390 NAOMIE AKBAR [facility] 7 HOME HOME 85%/>02 MEDICAL MEDICAL CONC AT EQUIPME [facility] FLW RATE DRUG TEST G0481 [facility] DYER DEFINITV [address] [address] [address] ID INC INC METH P DAY 8-14 DRUG CL DRUG TEST 89019 GOMEZ DYER PRSMV 7 [facility] QUAL DIR INC INC OPTICAL OBS PER DAY O2 CONC 1 E1390 NAOMIE AKBAR [facility] 7 HOME HOME 85%/>02 [facility]ICAL MED[facility] FLW RATE THER 89197 [facility] PROPH/DX [address] [place] [address] SEQL IV PUSH SBST/DRUG FAC OBSERVATI 12640 [facility] ON [facility]ARE 7 W N [facility]CHARGE [facility] [id number] [facility] OBSERVATI [address] [place] [address] HOSPITAL SERVICE PER HOUR INJECTION J0692 [facility] CEFEPIME [address] [place] [address] HYDROCHLO RIDE 500 MG INJECTION J1644 [facility] HEPARIN [address] [place] [address] PER 1000 UNITS INJ J2930 [facility] METHYLPRD [address] [place] [address] SODIUM SUCCNAT TO 125 MG INFUSION J7030 [facility] NORMAL [address] [place] [address] [facility] SOLUTION 1000 CC BASIC 71041 [facility] METABOLIC [address] [place] [address] CALCIUM TOTAL COLLECTIO 92160 [facility] N VENOUS [address] [place] [address] VENIPUNCT URE BLOOD [address] AUTO&AUTO DIFRNTL WBC THERAPEUT 66455 [facility] IC [address] [place] [address] TIC/DX INJECTION SUBQ/IM THERAPEUT [address] IV PUSH EACH NEW DRUG THER 01406 [facility] PROPH/DX [address] [address] NJX [facility] SEQL IV PUSH SBST/DRUG FAC THERAPEUT [address] TIC/DX INJECTION SUBQ/[place] [address] [facility] INFUSION [address] [place] [address] PROPHYLAX IS/[place] [address] [facility] INFUSION [address] [place] [address] THERAPY/P [facility] ROPHYLAXI S /DX 1ST TO 1 HR ECG 14939 [facility] ROUTINE [address] [place] [address] ECG [facility] W/LEAST 12 LDS TRCG ONLY W/O I&[place] [address] [facility] TROPONIN [address] [place] [address] [place] [address] [facility] MAGNESIUM [address] [place] [address] BLOOD 81498 [facility] COUNT [address] [place] [address] AUTO&AUTO DIFRNTL WBC CUL BACT 55977 [facility] XCPT [address] [place] [address] URINE [facility] BLOOD/STO OL AEROBIC ISOL SMR PRIM 40950 [facility] SRC [address] [place] [address] GRAM/GIEM [facility] SA STAIN BCT FUNGI/ROZINA L COLLECTIO 37750 [facility] N VENOUS [address] [place] [address] VENIPUNCT URE BASIC 96995 [facility] METABOLIC [address] [place] [address] CALCIUM TOTAL INJ J2930 [facility] METHYLPRD [address] [place] [address] SODIUM SUCCNAT TO 125 MG INJECTION J1644 [facility] HEPARIN [address] [place] [address] HOSPITAL PER 1000 UNITS INJECTION J0692 [facility] CEFEPIME [address] [place] [address] HYDROCHLO RIDE 500 MG INFUSION J7030 [facility] NORMAL [address] [place] [address] SOLUTION 1000 CC INITIAL 84729 [facility] OBSERVATI 7 W N ON HOSPITALI CARE/DAY ST 50 MINUTES TOBACCO 89048 [facility] USE [address] [place] [address] INTENSIVE >10 MINUTES INJECTION J0692 [facility] CEFEPIME [address] [place] [address] HYDROCHLO RIDE 500 MG INJECTION J1956 [address] RENETTA 250 MG INJECTION J1644 [facility] HEPARIN [address] [place] [address] HOSPITAL PER 1000 UNITS INJ J2930 [facility] METHYLPRD [address] [place] [address] SODIUM SUCCNAT TO 125 MG INFUSION J7030 [facility] NORMAL [address] [place] [address] SOLUTION 1000 CC COMPREHEN 85289 [facility] SIVE [address] [place] [address] PANEL URNLS DIP [address] STICK/TAB [facility] LET REAGENT AUTO MICROSCOP Y CORTISOL 01449 [facility] TOTAL [address] [place] [address] COLLECTIO 39825 [facility] N VENOUS [address] [place] [address] VENIPUNCT URE RADIOLOGI 81115 [facility] C EXAM [address] [place] [address] VIEWS FRONTAL&L ATERAL CULTURE 04270 [facility] BACTERIAL [address] [place] [address] QUANTTATI VE COLONY COUNT URINE CULTURE 12196 [facility] BACTERIAL [address] [place] [address] BLOOD [facility] AEROBIC W/ID ISOLATES BLOOD 73409 [facility] COUNT [address] [place] [address] COMPLETE [facility] AUTO&[place] [address] [facility] OSMOLALIT [address] [place] [address] Y URINE [facility] BLOOD 26619 [facility] GASES ANY [address] [place] [address] COMBINATI ON PH PCO2 [place]2 [place] [address] [facility] LACTATE [address] [place] [address] [place] [address] [facility] URINE [address] [place] [address] [place] [address] [facility] TROPONIN [address] [place] [address] [place] ECG 15[address] [facility] ROUTINE [address] [place] [address] W/LEAST 12 LDS TRCG ONLY W/O I&R THERAPEUT 60172 [facility] IC [address] [place] [address] [facility] TIC/DX INJECTION SUBQ/IM ECG 13601 [facility] ROUTINE 7 DESIRE ECG EMERGENCY W/LEAST PHYS 12 LDS I&R ONLY PRESSURIZ 99799 [facility] ED/NONPRE [address] [place] [address] INHALATIO N TREATMENT DRUG TEST 19080 GOMEZ DYER PRSMV 7 [facility] HOSP QUAL DIR INC INC OPTICAL OBS PER DAY O2 CONC 1 E1390 NAOMIE AKBAR [facility] 7 HOME HOME 85%/>02 MEDICAL MEDICAL CONC AT EQUIPME EQUIPME PRS FLW RATE DRUG TEST 00054 GOMEZ DYER PRSMV [address] [facility] HOSP QUAL DIR INC INC OPTICAL OBS PER DAY PET 31078 [facility] [address] CLINIC ATTENUATI ON WHOLE BODY FLUORODEO A9552 [facility] XYGLUCOSE 7 Y MEDICAL F-18 FDG CLINIC DX UP TO 45 MCI SBSQ 74600 [facility] 7 NE HEALTH CARE/DAY MEDICAL 35 G MINUTES INITIAL 71702 [facility] 7 NE HEALTH CONSULT MEDICAL NEW/ESTAB G PT 80 MIN RADIOLOGI 80052 [facility] 7 RADIOLOGY LD IV CHEST 2 VIEWS FRONTAL&[place] [address] [facility] [place] CRV 7 NE HEALTH CRTD ART MEDICAL EMBOLIC G PROTECJ ECG 38067 [facility]OUT[facility] 7 NE HEALTH ECG MEDICAL W/LEAST G 12 LDS I&R ONLY DUPLEX 99684 [facility] SCAN 7 EIDER EXTRACRAN RADIOLOGY IAL ART ASSOCIAT COMPL BI STUDY INITIAL 76032 [facility] YUE INPATIENT 7 NE HEALTH CONSULT MEDICAL NEW/ESTAB G PT 80 MIN GROUND A0425 [facility] [address] PER AMBULANCE AMBULANCE STATUTE MILE AMB A0427 [facility] SERVICE [address] [place] [address] ALS AMBULANCE AMBULANCE EMERGENCY TRANSPORT LEVEL 1 ECG 44736 [facility] ROUTINE 7 DESIRE ECG EMERGENCY W/LEAST PHYS 12 LDS I&[place] [address] [facility] HEAD/BRAI 7 EIDER N W/O RADIOLOGY CONTRAST ASSOCIAT MATERIAL RADIOLOGI [address]07 [facility] C EXAM 7 EIDER CHEST 2 RADIOLOGY VIEWS ASSOCIAT FRONTAL&[place] [address] [facility] ABDOMEN & 7 EIDER PELVIS RADIOLOGY W/O ASSOCIAT CONTRAST MATERIAL O2 CONC 1 E1390 [facility] 7 HOME HOME 85%/>02 MEDICAL MEDICAL CONC AT EQUIPME EQUIPME [facility] FLW RATE LOCM Q9967 [facility] 300-[address] [place] [address] MG/ HOSPITAL HOSPITAL IODINE CONCENTRA TION PER ML CT SOFT 11017 [facility] TISSUE [address] [place] [address] NECK [facility] W/[place] [address] [facility] ABDOMEN & [address] [place] [address] PELVIS [facility] W/CONTRAS T MATERIAL CT THORAX [address] W/[facility] T MATERIAL LOCM Q9967 [facility] 300-[address] [place] [address] [facility] IODINE CONCENTRA TION PER ML ADMN SET A7005 NAOMIE AKBAR W/SM VOL 7 HOME HOME NONFILTR MEDICAL MEDICAL NEBULIZR EQUIPME EQUIPME NON-DISPB L DRUG TEST G0481 GOMEZ DYER DEFINITV [address] ID INC INC METH P DAY 8-14 DRUG CL DRUG TEST 89840 GOMEZ DYER PRSMV 7 [facility]OS[facility] QUAL DIR INC INC OPTICAL OBS PER DAY COMPREHEN 63062 [facility] SIVE 7 DARRYL [facility] METABOLIC [employer] PANEL LACTATE 99531 [facility] D[facility] DEHYDROGE 7 DARRYL DARRYL NASE LDH [employer] BLOOD 53295 [facility] COUNT 7 DARRYL D[facility] COMPLETE [employer] AUTO&AUTO DIFRNTL WBC O2 CONC 1 E1390 NAOMIE NAOMIE [facility] 7 HOME HOME 85%/>02 MEDICAL MEDICAL CONC AT EQUIPME EQUIPME PRSC FLW RATE DRUG TEST G0480 GOMEZ DYER DEFINITV [address] ID INC INC METH P DAY 1-7 DRUG CL DRUG TEST G0481 GOMEZ DYER DEFINITV [address] ID INC INC METH P DAY 8-14 DRUG CL DRUG TEST 56455 GOMEZ DYER PRSMV 7 [facility] HOSP QUAL DIR INC INC OPTICAL OBS PER DAY RADEX 67250 [facility] HAND [address] [place] [address] HOSPITAL VIEWS REPAIR 30469 [facility] INTERMEDI [address] [place] [address] N/H/F/XTR NL GENT 2.6-7.5 CM TDAP 44798 [facility] VACCINE [address] [place] [place] [address] YRS/> [facility] DEBRIDEME [address] [facility] NT OPEN 7 DESIRE WOUND 20 EMERGENCY SQ CM/< PHYS O2 CONC 1 E1390 NAOMIE C[facility] HOME HOME 85%/>02 MEDICAL MEDICAL CONC AT EQUIPME EQUIPME PRS FLW RATE INFUSION J7030 [address] SOLUTION 1000 CC INJECTION J2405 [address] ON HCL PER 1 MG DRUG TEST G0480 [facility] DEFINITV [address] [address] DR ID [facility] METH P DAY 1-7 DRUG CL IAADIADOO [address] [facility] CULTURE [address] [facility] BACTERIAL [address] [place] [address] BLOOD [facility] AEROBIC W/[place] [address] [facility] LIPASE [address] [place] [address] [place] [address] [facility] LACTATE [address] [place] [address] [place] [address] [facility] MAGNESIUM [address] [place] [address] [place] [address] [facility] FREE [address] [place] [address] [place] [address] [facility] TROPONIN [address] [place] [address] [place] ECG [address] [facility] ROUTINE DESIRE ECG EMERGENCY W/LEAST PHYS 12 LDS I&R ONLY THER 28329 [facility] PROPH/DX [address] [place] [address] NJX [facility] PUSH SINGLE/1S [place] SBST/[place] [address] [facility] INFUSION [address] [place] [address] HYDRATION [facility] EACH ADDITIONA L HOUR ECG 25579 [facility] ROUTINE [address] [place] [address] W/LEAST 12 LDS TRCG ONLY W/O I&R COLLECTIO 22521 [facility] N VENOUS [address] [place] [address] [place] [address] [facility] HEAD/BRAI [address] [place] [address] W/O [facility] CONTRAST MATERIAL RADIOLOGI 54132 [facility] C EXAM [address] [place] [address] CHEST 2 [facility] VIEWS FRONTAL&L ATERAL DRUG TEST 37964 [facility] PRSMV [address] [place] [address] [facility] CHEMISTR[facility] ANALYZERS URNLS DIP [address] STICK/TAB [facility] LET REAGENT AUTO MICROSCOP Y GENERAL 05423 [facility] HEALTH [address] [place] [address] DRUG 84069 GOMEZ DYER SCREENING 7 [facility] OPIOIDS INC INC & OPIATE ANALOGS 5/MORE DRUG TEST 71816 GOMEZ DYER PRSMV 7 [facility] QUAL DIR INC INC OPTICAL OBS [place] NJX 61014 [place] ADRIANFF DX/THER 7 MD SUNNY, AGT PVRT PSC FACET JT LMBR/SAC 1 LEVEL NJX 85525 [place] ADRIANFF DX/THER 7 MD SUNNY, AGT PVRT PSC FACET JT LMBR/SAC 2ND LEVEL O2 CONC 1 E1390 NAOMIE AKBAR [facility] 7 HOME HOME 85%/>02 MEDICAL MEDICAL CONC AT EQUIPOK EQUIPOK PRSC FLW RATE DRUG TEST 21504 GOME[facility] DYER PRSMV 7 [facility] QUAL DIR INC INC OPTICAL OBS PER DAY CYANOCOBA 85045 GOMEZ DYER JENNY 7 [facility] VITAMIN INC INC B-12 PPSV23 59607 [facility] FRANCISCO VACCINE 2 7 PHYSICIAN YRS OR S GROUP OLDER FOR SUBQ/IM USE DRUG TEST 53723 GOMEZ DYER PRSMV 7 [facility] QUAL DIR INC INC OPTICAL OBS PER DAY DRUG TEST G0480 GOMEZ DYER DEFINITV [address] ID INC INC METH P DAY 1-7 DRUG CL DRUG TEST G0481 GOMEZ DYER DEFINITV [address] ID INC INC METH P DAY 8-14 DRUG CL COMPREHEN 54059 [facility] D[facility] SIVE 7 DARRYL DARRYL METABOLIC [facility]INGS HOLDINGS PANEL BLOOD 45692 [facility] DIEGO COUNT 7 DARRYL DARRYL COMPLETE HOLDINGS HOLDINGS AUTO&[place] [address] [facility] DIEGO BLOOD/URI 7 DARRYL DARRYL C ACID HOLDINGS HOLDINGS LACTATE 61173 [facility] DEHYDROGE 7 DARRYL DARRYL [place] [address] LAB D[facility] LAB DIEGO MAGNESIUM 7 DARRYL DARRYL HOLDINGS HOLDINGS DRUG TST G0477 GOMEZ DYER PRESUMP;C 6 [facility] PBL BEING INC INC READ DC OPT OBV ONLY DRUG TEST G0481 GOMEZ DYER DEFINITV [address] [address] ID INC INC METH P DAY 8-14 DRUG CL HOS BED E0260 NAOMIE NAOMIE SEMI-ELEC 6 HOME HOME W/ANY MEDICAL MEDICAL TYPE SIDE EQUIPME EQUIPME RAIL W/MATTRSS O2 CONC 1 E1390 NAOMIE AKBAR DEL PORT 6 HOME HOME 85%/>02 MEDICAL MEDICAL CONC AT EQUIPME EQUIPME PRS FLW RATE DRUG TST G0477 GOMEZ DYER PRESUMP;C 6 [facility] PBL BEING INC INC READ DC OPT OBV ONLY HOS BED E0260 NAOMIE ARTEAGARELL SEMI-ELEC 6 HOME HOME W/ANY MEDICAL MEDICAL [...] INC METH P DAY 8-14 DRUG CL HOS BED E0260 NAOMIE AKBAR SEMI-ELEC 6 [...] OPT OBV ONLY HOS BED E0260 NAOMIE AKBAR SEMI-ELEC 6 HOME HOME W/ANY MEDICAL MEDICAL TYPE SIDE EQUIPME EQUIPME RAIL W/MATTRSS O2 CONC 1 E1390 NAOMIE AKBAR DEL PORT 6 HOME HOME 85%/>02 MEDICAL MEDICAL CONC AT EQUIPME EQUIPME [facility] FLW RATE MOTION 15409 KUSH PREEZ [address] [place] [address] FUN C/V REC SWALLOWIN [address] KUSH Benson [address] W/[facility] IOGRAPY/V IDRADIOG ADMN SET A7005 NAOMIE AKBAR W/SM VOL 6 HOME HOME NONFILTR MEDICAL MEDICAL NEBULIZR EQUIPME EQUIPME NON-DISPB L COLLECTIO 50381 SHERMAN Perera VENOUS 6 Y MEDICAL [facility] [place] [address] LAB D[facility] D[facility] ERYTHROPO 6 DARRYL DARRYL [place] [address] LAB DIEGO LAB DIEGO FERRITIN 6 DARRYL DARRYL HOLDINGS HOLDINGS CYANOCOBA 27378 LAB [facility] DIEGO JENNY 6 DARRYL DARRYL VITAMIN HOLDINGS HOLDINGS B-12 [place] [address] LAB DIEGO LAB DIEGO FOLIC 6 [facility] [place] [address] LAB DIEGO LAB DIEGO IRON 6 DARRYL DARRYL HOLDINGS HOLDINGS NONINVASI 73989 SHERMAN MANZANARES VE 6 Y MEDICAL [facility] EAR/PULSE CLINIC OXIMETRY SINGLE DETER LACTATE 23006 LAB [facility] DIEGO DEHYDROGE 6 [facility] [place]ASE [place] [address] LAB DIEGO LAB DIEGO [id number] DARRYL DARRYL SFERRIN HOLDINGS HOLDINGS BLOOD 43918 LAB DIEGO LAB DIEGO COUNT 6 DARRYL DARRYL COMPLETE HOLDINGS HOLDINGS AUTO&AUTO DIFRNTL WBC BLOOD 77668 LAB DIEGO LAB DIEGO COUNT 6 [facility] RETICULOC [place] [address] [address]USH [address]ABRIEL [address] [place] [address] DYSFUNCTI ON&/ORAL FUNCJ FEEDING INTERROGA 26009 [facility] BRITANY TION 6 PHYSICIAN MAT EVALUATIO S GROUP N IN PERSON ILR SYSTEM ECG 06913 GOMEZ DYER ROUTINE 6 [facility] ECG INC INC W/LEAST 12 LDS TRCG ONLY W/O I&[place] [address] KUSH GABRIEL [address] [place] [address] DYSFUNCTI ON&/ORAL FUNCJ FEEDING HOS BED E0260 NAOMIE AKBAR SEMI-ELEC 6 HOME HOME W/ANY MEDICAL MEDICAL TYPE SIDE EQUIPME EQUIPME RAIL W/MATTRSS O2 CONC 1 E1390 NAOMIE GORDON 6 HOME HOME 85%/>02 MEDICAL MEDICAL CONC AT EQUIPME EQUIPME [facility] FLW RATE PRESCRIPT J8499 [facility] ION DRUG [address] [place] [address] NONCHEMOT HERAPEUTI C NOS PRESSURIZ 53584 [facility] ED/NONPRE [address] [place], [place] [address]URIZED [facility] [place] [address] [facility] IRON [address] [place] [address] IRON 64439 [facility] BINDING [address] [place] [address] [place] [address] [facility] FOLIC [address] [place] [address] ACID [facility] SERUM CYANOCOBA 96626 [facility] JENNY [address] [place] [address] B-[place] [address] [facility] FERRITIN [address] [place] [address] BASIC 61417 [facility] METABOLIC [address] [place] [address] CALCIUM TOTAL GENERAL 15202 [facility] HEALTH [address] [place] [address] [place] [address] [facility] LACTATE [address] [place] [address] CREATINE 63177 [facility] KINASE [address] [place] [address] HOSPITAL COLLECTIO 39509 [facility] N VENOUS [address] [place] [address] [place] [address] [facility] HEAD/BRAI [address] [place] [address] W/O [facility] [place] [address] [facility] INFUSION [address] [place] [address] HOSPITAL INITIAL 31 MIN-1 [place] [address] [facility] INFUSION [address] [place] [address] EACH ADDITIONA L HOUR ECG 97953 [facility] ROUTINE 6 DESIRE PHI ECG EMERGENCY W/LEAST PHYS 12 LDS I&R ONLY ECG 57781 [facility] ROUTINE [address] [place] [address] HOSPITAL W/LEAST 12 LDS TRCG ONLY W/O I&[place] [address] [facility] TROPONIN [address] [place] [address] [place] [address] [facility] MAGNESIUM [address] [place] [address] [place] [address] KUSH CURRIE FREE [address] [place] [address] HOSPITAL INFUSION J7030 KUSH CURRIE NORMAL [address] [place] [address] HOSPITAL SOLUTION 1000 CC HOSPITAL G0378 CURRIETAMI CURRIE OBSERVATI [address] [place] [address] HOSPITAL SERVICE PER HOUR CRITICAL 57973 [facility] 6 DESIRE PHI ILL/INJUR EMERGENCY ED PHYS PATIENT INIT 30-[place] [address] DYSFUNCTI ON&[place] [address] DYSFUNCTI ON&[place] [address] DYSFUNCTI ON&/[place] [address] DYSFUNCTI ON&/[place] [address] DYSFUNCTI ON&/[place] [address] DYSFUNCTI ON&/ORAL FUNCJ FEEDING RADIOLOGI 89342 [facility] 6 MEDICAL EXAMINATI IMAGING ON EYE ASS DETECT FOREIGN BODY 3D 48629 [place] [facility] RENDERING 6 MEDICAL DEMARCUS W/INTERP IMAGING & ASS POSTPROCE SS SUPERVISI ON MRI 78871 [place] [facility] SPINAL 6 MEDICAL DEMARCUS CANAL IMAGING LUMBAR ASS W/O CONTRAST MATERIAL ECG 70547 GOMEZ DYER ROUTINE 6 [facility] ECG INC INC W/LEAST 12 LDS TRCG ONLY W/O I&[place] [address] DYSFUNCTI ON&/ORAL FUNCJ [place] 06319 SHERMAN MANZANARES IMAGING 6 Y MEDICAL [facility] FOR CT CLINIC ATTENUATI ON WHOLE BODY FLUORODEO A9552 SHERMAN MANZANARES XYGLUCOSE 6 Y MEDICAL [facility] F-18 FDG CLINIC DX UP TO [address] [place] [address] KUSH GABRIEL [address] [place] [address] DYSFUNCTI ON&/ORAL FUNCJ FEEDING HOS BED E0260 NAOMIE AKBAR SEMI-ELEC 6 HOME HOME W/ANY MEDICAL MEDICAL TYPE SIDE EQUIPME EQUIPME RAIL W/MATTRSS O2 CONC 1 E1390 NAOMIE AKBAR DEL PORT 6 HOME HOME 85%/>02 MEDICAL MEDICAL CONC AT [place] [address] KUSH GABRIEL [address] [place] [address] DYSFUNCTI ON&/[place] [address] KUSH GABRIEL [address] [place] [address] DYSFUNCTI ON&/ORAL FUNCJ FEEDING BLOOD 38702 LAB [facility] LAB DIEGO COUNT 6 DARRYL DARRYL COMPLETE HOLDINGS HOLDINGS AUTO&AUTO DIFRNTL WBC LACTATE 22796 [facility]IEGO DEHYDROGE 6 DARRYL DARRYL NASE LDH HOLDINGS HOLDINGS COMPREHEN 53940 LAB [facility] LAB DIE[facility] SIVE 6 DARRYL DARRYL METAB[place] [address] KUSH GABRIEL [address] [place] [address] DYSFUNCTI ON&/[place] [address] KUSH GABRIEL [address] [place] [address] DYSFUNCTI ON&/[place] [address] KUSH GABRIEL [address] [place] [address] DYSFUNCTI ON&/ORAL FUNCJ FEEDING DRUG TST G0477 GOMEZ DYER PRESUMP;C 6 [facility] PBL BEING INC INC READ DC OPT OBV ONLY DRUG TEST G0481 GOMEZ DYER DEFINITV [address] ID INC INC METH P DAY 8-[place] [address] KUSH GABRIEL [address] [place] [address] DYSFUNCTI ON&/[place] [address] KUSH GABRIEL [address] [place] [address] DYSFUNCTI ON&/[place] [address] KUSH CURRIE SWALLOWIN [address] [place] [address] DYSFUNCTI ON&/[place] [address] KUSH CURRIE SWALLOWIN [address] [place] [address] HOSPITAL DYSFUNCTI ON&/ORAL FUNCJ FEEDING DUPLEX 78267 GOMEZ GOMEZ SCAN 6 [facility] EXTRACRAN INC INC IAL ART COMPL BI STUDY HOS BED E0260 NAOMIE AKBAR SEMI-ELEC 6 HOME HOME W/ANY MEDICAL MEDICAL TYPE SIDE EQUIPME EQUIPME RAIL W/MATTRSS O2 CONC 1 E1390 NAOMIE AKBAR DEL PORT 6 HOME HOME 85%/>02 MEDICAL MEDICAL CONC AT EQUIPME EQUIPME PRSC FLW RATE INTERROGA 08815 [facility] BRITANY TION 6 PHYSICIAN MAT EVALUATIO S GROUP N IN PERSON ILR SYSTEM ECG 81049 GOMEZ DYER ROUTINE 6 [facility] ECG INC INC W/LEAST 12 LDS TRCG ONLY W/O I&R HOS BED E0260 NAOMIE NAOMIE SEMI-ELEC 6 HOME HOME W/ANY MEDICAL MEDICAL TYPE SIDE EQUIPME EQUIPME RAIL W/MATTRSS O2 CONC 1 E1390 NAOMIE AKBAR DEL PORT 6 HOME HOME 85%/>02 MEDICAL MEDICAL CONC AT EQUIPME EQUIPME PRSC FLW RATE DIRECT G0299 ST EDENILSON CASTELLANO RN 6 [facility] COYOTE HUNTER COYOTE HUNTER SPICE SET EA 15 MIN LACTATE 96095 LAB [facility] LAB DIEGO DEHYDROGE 6 DARRYL DARRYL NASE [facility]DH HOLDINGS HOLDINGS BLOOD 18713 LAB D[facility] LAB DIEGO COUNT 6 DARRYL DARRYL COMPLETE HOLDINGS HOLDINGS AUTO&AUTO DIFRNTL WBC COMPREHEN 08297 [facility] LAB DIEGO SIVE 6 DARRYL DARRYL METABOLIC HOLDINGS HOLDINGS PANEL DIRECT G0299 ST EDENILSON CASTELLANO RN 6 [facility] COYOTE HUNTER COYOTE HUNTER SPICE SET EA [address] EDENILSON CASTELLANO RN 6 [facility] COYOTE HUNTER COYOTE HUNTER SPICE SET EA 15 MIN HOME TX; S9341 INFUSION INFUSION ENTERAL 6 PARTNERS PARTNERS NUTRITION OF OF VIA [place] GRAVITY; JUTE BAG CLIPPER ENTRAL F B4152 INFUSION INFUSION NUTRITION 6 PARTNERS PARTNERS CMPL VASQUEZ OF OF DENSE [place] INTACT NUTRNTS INTERROGA 55776 [facility] BRITANY TION 6 PHYSICIAN MAT EVALUATIO S GROUP N IN PERSON ILR SYSTEM HOS BED E0260 NAOMIE AKBAR SEMI-ELEC 6 HOME HOME W/ANY MEDICAL MEDICAL TYPE SIDE EQUIPME EQUIPME RAIL W/MATTRSS DIRECT G0299 ST EDENILSON CASTELLANO RN 6 [facility] COYOTE HUNTER SPICE SET EA 15 MIN O2 CONC 1 E1390 NAOMIE AKBAR DEL PORT 6 HOME HOME 85%/>02 MEDICAL MEDICAL CONC AT EQUIPME EQUIPME PRSC FLW RATE DIRECT G0299 ST EDENILSON CASTELLANO RN 6 [facility] SPICE SET EA 15 MIN BLOOD 60639 GOMEZ DYER COUNT 6 [facility] COMPLETE INC INC AUTO&AUTO DIFRNTL WBC BASIC 20335 GOMEZ DYER METABOLIC 6 [facility] PANEL INC INC CALCIUM TOTAL RADIOLOGI 61034 [place] [address] MEDICAL DEMARCUS EXAMINATI IMAGING ON CHEST ASS SINGLE VIEW FRONTAL COLLECTIO 68344 GOMEZ DYER N VENOUS 6 MEM H[facility]OS[facility] BLOOD INC INC VENIPUNCT URE DIRECT G0299 ST EDENILSON CASTELLANO RN 6 [facility] SPICE SET EA 15 MIN SBSQ 53278 [facility] 6 MEDICAL CARE/DAY SERV 25 FOUNDATIO MINUTES N ADDITIVE B4104 INFUSION INFUSION FOR 6 PARTNERS PARTNERS ENTERAL OF OF FORMULA [place] ENTRAL F B4152 INFUSION INFUSION NUTRITION 6 PARTNERS PARTNERS CMPL VASQUEZ OF OF DENSE [place] INTACT NUTRNTS HOME [place]; S9341 INFUSION INFUSION ENTERAL 6 PARTNERS PARTNERS NUTRITION OF OF VIA [place] GRAVITY; [place] [address] TIFFANIE BRANDEE RETROPERI 6 MEDICAL ADR TONEAL SERV REAL TIME FOUNDATIO W/IMAGE N COMPLETE RADIOLOGI 87730 TIFFANIE OCONNELL HENRIK C 6 MEDICAL EXAMINATI SERV ON CHEST FOUNDATIO SINGLE N VIEW FRONTAL THORACENT 09742 TIFFANIE RAISSI ESIS 6 MEDICAL DRI NEEDLE/CA SERV TH PLEURA FOUNDATIO N W/IMAGING CYTP 56646 [facility] SLCTV 6 Y OF ОЛЕГ CELL [facility] NT INTERP[place] XCP[place] C/[place] [address] [facility] SURG 6 Y OF ОЛЕГ PATHOLOGY [place] GROSS&KAMILA ROSCOPIC EXAM SBSQ 73638 [facility] 6 MEDICAL OS CARE/DAY SERV 25 FOUNDATIO MINUTES N SBSQ 41832 [facility] 6 MEDICAL OS CARE/DAY SERV 25 FOUNDATIO MINUTES N SBSQ 04588 [facility] 6 MEDICAL OS ROZINA CARE/DAY SERV 25 FOUNDATIO MINUTES N SBSQ 29499 [facility] 6 MEDICAL OS ROZINA CARE/DAY SERV 25 FOUNDATIO MINUTES N INITIAL 16984 [facility] 6 DESIRE A RIVAS CARE/DAY PHYSICIAN 70 SERVI MINUTES SWALLOWIN 71936 [place] PERE[facility] Benson FUNCJ 6 MEDICAL SCO W/CINERAD SERV IOGRAPY/V FOUNDATIO IDRADIOG N RADIOLOGI 97573 [place] [facility] EXAM 6 MEDICAL CHEST 2 IMAGING VIEWS ASS FRONTAL&L ATERAL CT THORAX 37542 [place] [facility] 6 MEDICAL W/CONTRAS IMAGING T ASS MATERIAL ECG 80647 [place] [facility] ROUTINE 6 MEDICAL NAN ECG SERV W/LEAST FOUNDATIO 12 LDS N I&R ONLY HOSPITAL 95552 [facility] 6 DESIRE IRM DAY PHYSICIAN MANAGEMEN SERVI T > 30 MIN SBSQ 92380 [facility] 6 DESIRE IRM CARE/DAY PHYSICIAN 25 SERVI MINUTES SBSQ 97061 [facility] 6 DESIRE IRM CARE/DAY PHYSICIAN 25 SERVI MINUTES SBSQ 93389 [facility] 6 DESIRE IRM CARE/DAY PHYSICIAN 25 SERVI MINUTES INITIAL 65574 [facility] 6 DESIRE IRM CARE/DAY PHYSICIAN 70 SERVI MINUTES O2 CONC 1 E1390 [place] [address] HOME HOME 85%/>02 MEDICAL MEDICAL CONC AT EQUIPME [facility] PRS FLW RATE DRUG TST G0477 GOMEZ DYER PRESUMP;C 6 MEM H[facility] MEM [facility]OS[facility] PBL BEING INC INC READ DC OPT OBV ONLY O2 CONC 1 E1390 [place] [address] HOME HOME 85%/>02 MEDICAL MEDICAL CONC AT [facility] FLW RATE DRUG TST G0477 GOMEZ DYER [...] DRUG CL O2 CONC 1 E1390 [place] [address] HOME HOME 85%/>02 MEDICAL MEDICAL CONC AT EQUIPME [facility] FLW RATE DRUG TST G0477 GOMEZ DYER PRESUMP;C 6 MEM H[facility]OS[facility] PBL BEING INC INC READ DC OPT OBV ONLY INTERROGA 47487 CARDIOV[facility] BRITANY TION 5 CULAR MAT EVALUATIO CONSULTAN N IN TS O PERSON ILR SYSTEM INTERROGA 80051 C[facility] BRITANY TION 5 CULAR MAT EVALUATIO CONSULTAN N IN TS O PERSON ILR SYSTEM O2 CONC 1 E1390 NAOMIE [facility] 5 HOME HOME 85%/>02 MEDICAL MEDICAL CONC AT EQUIPME [facility] FLW RATE ECG 10498 CARDIOVAS BRITANY ROUTINE 5 CULAR MAT ECG CONSULTAN W/LEAST TS O 12 LDS I&R ONLY ECG 71274 GOMEZ DYER ROUTINE 5 [facility] ECG INC INC W/LEAST 12 LDS TRCG ONLY W/O I&R INTERROGA 66362 CARDIOVAS BRITANY TION 5 CULAR MAT EVALUATIO CONSULTAN N IN TS O PERSON ILR SYSTEM O2 CONC 1 E1390 NAOMIE CARRION [facility] 5 HOME HOME 85%/>02 MEDICAL MEDICAL CONC AT [facility] FLW [facility]ATE INJECTION J0696 GOMEZ MINAYAEMILI [facility] NE SODIUM PER 250 MG THERAPEUT 12430 GOMEZ HICKMAN IC 5 [facility]/DX INJECTION SUBQ/IM [facility] 94555 [facility] 5 DESIRE DAY PHYSICIAN MANAGEMEN SERVI T > 30 MIN SBS 99786 [facility] 5 Y MEDICAL [facility] CARE/DAY CLINIC 35 MINUTES SBS 02704 [facility] 5 DESIRE CARE/DAY PHYSICIAN 25 SERVI MINUTES INITIAL 34824 [facility] 5 DESIRE CARE/DAY PHYSICIAN 30 SERVI MINUTES INITIAL 18068 [facility] 5 Y MEDICAL [facility] CARE/DAY CLINIC [address] [facility] C EXAM 5 NGOZI CHEST 2 RADIOLOGY VIEWS ASSOCIAT FRONTAL&L ATERAL INTERROGA 09097 CARDIOVAS BRITANY TION 5 CULAR MAT EVALUATIO CONSULTAN N IN TS O PERSON ILR SYSTEM ECG 79359 CARDIOV[facility] BRITANY ROUTINE 5 CULAR MAT ECG CONSULTAN W/LEAST TS O 12 LDS I&R ONLY ECG 98395 GOMEZ DYER ROUTINE 5 [facility] ECG INC INC W/LEAST 12 LDS TRCG ONLY W/O I&R O2 CONC 1 E1390 NAOMIE GORDON 5 HOME HOME 85%/>02 MEDICAL MEDICAL CONC AT [facility]ATE LOCM Q9967 GOMEZ DYER 300-399 5 [facility] MG/ML INC INC IOD[place] [address] GOMEZ DYER UREA 5 [facility] NITROGEN INC INC QUANTITAT [place] COLLECTIO 07170 GOMEZ DYER N VENOUS 5 MEM H[facility]OS[facility] BLOOD INC INC VENIPUNCT URE CT SOFT 85247 [place] PHILIP ALL TISSUE 5 MEDICAL NECK W/O IMAGING & [place] W/[place] [address] GOMEZ DYER ANGIOGRAP 5 [facility] HY NECK INC INC W/CONTRAS T/NONCONT RAST CREATININ 55415 GOMEZ DYER E BLOOD 5 MEM [facility] HOSP INC INC PET 29708 [facility] 5 Y MEDICAL [facility] FOR CT CLINIC ATTENUATI ON WHOLE BODY FLUORODEO A9552 [facility] XYGLUCOSE 5 Y MEDICAL [facility] F-18 FDG CLINIC DX UP TO [address] THORAX 58895 CURRIE LAURENCE W/O & 5 REGIONAL GLE W/CONTRAS MEDICAL T BELKIS MATERIAL CT SOFT 56718 KUSH LAURENCE TISSUE 5 REGIONAL GLE NECK W/O MEDICAL & BELKIS W/[place] [address] KUSH WILLISMACK HEAD/BRAI 5 REGIONAL GLE N W/O & MEDICAL W/CONTRAS BELKIS T MATERIAL GENERAL 56897 [facility] HEALTH 5 DARRYL DARRYL [place] [address] LAB DIEGO LAB DIEGO FOLIC 5 DARRYL DARRYL ACID HOLDINGS HOLDINGS SERUM CYANOCOBA 60836 [facility] D[facility]GO JENNY 5 DARRYL DARRYL VITAMIN HOLDINGS HOLDINGS B-12 LACTATE 99611 [facility] DEHYDROGE 5 DARRYL DARRYL NASE [facility] HOLDINGS HOLDINGS ECG 56795 GOMEZ DYER ROUTINE [address] [facility] HOSP ECG INC INC W/LEAST 12 LDS TRCG ONLY W/O I&R ECG 97154 CARDIOVAS BRITANY ROUTINE 5 CULAR MAT ECG CONSULTAN W/LEAST TS O 12 LDS I&R ONLY O2 CONC 1 E1390 NAOMIE [facility]ION [place] 5 HOME HOME 85%/>02 MEDICAL MEDICAL CONC AT EQUIPME EQUIPME PRS FLW RATE ECG 71832 CARDIOVAS BRITANY ROUTINE 5 CULAR MAT ECG CONSULTAN W/LEAST TS O 12 LDS I&R ONLY ECG 10267 GOMEZ DYER ROUTINE 5 [facility] ECG INC INC W/LEAST 12 LDS TRCG ONLY W/O I&R DUPLEX 79337 PATRICIA PHILIP ALL SCAN 5 MEDICAL EXTRACRAN IMAGING IAL ART ASS COMPL BI STUDY ECG 34409 GOMEZ DYER ROUTINE 5 [facility] ECG INC INC W/LEAST 12 LDS TRCG ONLY W/O I&R ECG 31410 CARDIOVAS CARDIOVAS ROUTINE 5 CULAR CULAR ECG CONSULTAN CONSULTAN W/LEAST TS O TS O 12 LDS I&R ONLY IMPLANTAT 13025 CARDIOVAS BRITANY ION 5 CULAR MAT PT-ACTIVA CONSULTAN VIVIAN TS O CARDIAC EVENT RECORDER O2 CONC 1 E1390 [facility] 5 HOME HOME 85%/>02 MEDICAL MEDICAL CONC AT [facility] FLW RATE ECG 03274 CARDIOVAS BRITANY ROUTINE 5 CULAR MAT ECG CONSULTAN W/LEAST TS O 12 LDS I&R ONLY ECG 61724 GOMEZ DYER ROUTINE 5 [facility] ECG INC INC W/LEAST 12 LDS TRCG ONLY W/O I&R ECG 23679 CARDIOVAS BRITANY ROUTINE 5 CULAR MAT ECG CONSULTAN W/LEAST TS O 12 LDS W/I&R O2 CONC 1 E1390 [facility] 5 HOME HOME 85%/>02 MEDICAL MEDICAL CONC AT [facility]ME [facility] [place] [address] GOMEZ DYER THYROXINE 5 MEM [facility] [place] [address] GOMEZ DYER THYROID 5 MEM HOS[facility] MEM HOSP STIMULATI INC INC NG HORMONE TSH BLOOD 95480 GOMEZ DYER COUNT 5 MEM HOS[facility] MEM HOSP COMPLETE INC INC AUTO&AUTO DIFRNTL WBC COLLECTIO 77587 GOMEZ DYER N VENOUS 5 [facility] [place] [address] GOMEZ DYER FOLIC 5 MEM HOSP MEM HOSP ACID INC INC SERUM CYANOCOBA 00766 GOMEZ DYER JENNY 5 MEM HOSP MEM HOSP VITAMIN INC INC B-12 25 24677 GOMEZ DYER HYDROXY 5 MEM HOS[facility] MEM HOSP INCLUDES INC INC FRACTIONS IF PERFORMED COMPREHEN 70402 GOMEZ DYER SIVE 5 MEM HOS[facility] MEM HOSP METABOLIC INC INC PANEL COMPREHEN 92125 JESSICADOWALFONSO MEADOWVIE SIVE 5 W W METABOLIC REGIONAL REGIONAL PANEL MEDICAL MEDICAL CREATINE 22951 MEAD[facility] MEADOWVIE KINASE 5 W [place] [address] ME[facility] MEADOWVIE HEAD/BRAI 5 W W N W/O REGIONAL REGIONAL CONTRAST MEDICAL MEDICAL MATERIAL RADIOLOGI 64860 [facility]AD[facility]IE MEADOWVIE C 5 W W EXAMINATI REGIONAL REGIONAL ON CHEST MEDICAL MEDICAL SINGLE VIEW FRONTAL BLOOD 62914 MEAD[facility]IE MEADOWVIE COUNT 5 W W COMPLETE REGIONAL REGIONAL AUTO&AUT[place] [address] MEADOW[facility]IE MEADOWVIE TROPONIN 5 W W QUANTITAT REGIONAL REGIONAL [place] MEDICAL MEDICAL INFUSION J7030 MEADOW[facility]IE MEADOWVIE NORMAL 5 W W [place] REGIONAL REGIONAL SOLUTION MEDICAL MEDICAL 1000 CC ECG 32565 [facility] ROUTINE 5 DESIRE TARAH ECG EMERGENCY W/LEAST PHYS 12 LDS I&R ONLY ECG 18171 MEADOW[facility]IE MEADOWVIE ROUTINE 5 W W ECG REGIONAL REGIONAL W/LEAST MEDICAL MEDICAL 12 LDS TRCG ONLY W/[place] [address] MEADOW[facility]IE MEADOWVIE INFUSION 5 W W HYDRATION REGIONAL REGIONAL INITIAL MEDICAL MEDICAL 31 MIN-1 [place] [address] [facility] [place] STENT CRV 5 [facility] CRTD ART MEDICAL EMBOLIC G PROTECJ RADIOLOGI 54420 [facility] [place] [facility] C EXAM 5 RADIOLOGY CAR CHEST 2 VIEWS FRONTAL&[place] [address] [facility] [place] STENT CRV 5 [facility] CRTD ART MEDICAL EMBOLIC G PROTECJ SLCTV 57273 [facility] [place] CATH 5 [facility] CAROTID/I MEDICAL NNOM ART G ANGIO XTRCRANL ART PERCUTANE [address] ANGIOPLAS TY EXTRACRAN IAL VESSELS PERCUTANE 0063 [facility] OUS [address] [place] [address] HOSPITAL INSERTION CAROTID ARTERY STENT(S) INSERTION 0045 [facility] OF ONE [address] [place] [address] VASCULAR STENT PROCEDURE 0040 [facility] ON [address] [place] [address] SINGLE VESSEL PROCEDURE 0044 [facility] ON [address] [place] [address] VESSEL BIFURCATI ON DUPLEX 56572 [facility] [place] SCAN [facility] EXTRACRAN MEDICAL IAL ART G COMPL BI STUDY THERAPEUT 03615 [facility] FRANCISCO IC 5 PHYSICIAN KAMILA PROPHYLAC S GROUP TIC/DX INJECTION SUBQ/IM INJECTION J0696 [facility]ANCIS[facility] 5 PHYSICIAN KAMILA CEFTRIAXO S GROUP NE SODIUM PER 250 MG INJECTION J1040 [facility] 5 PHYSICIAN KAMILA METHYLPRE S GROUP DNISOLONE ACETATE 80 MG SBSQ 02776 [facility] 5 CULAR MAT CARE/DAY CONSULTAN 25 TS O MINUTES OBSERVATI 66643 [facility] ON CARE 5 [place] [address] [facility] HEAD/BRAI 5 VENANCIO N W/O RADIOLOGY CONTRAST ASSOCIAT MATERIAL RADIOLOGI 09219 [facility] C 5 EXAMINATI RADIOLOGY RADIOLOGY ON CHEST ASSOCIAT ASSOCIAT [place] [facility] 57206 CARD[facility]OV[facility] CATH 5 CULAR MAT INTRNL CONSULTAN CAROTID TS O ART ANGIO INTRCRNL ART [facility] 75703 [facility] BRITANY CATHJ EA 5 CULAR MAT 1ST ORD CONSULTAN ABDL TS O PEL/LXTR ART BRNCH DUPLEX 33890 [facility] VENANCIO EXTRACRAN RADIOLOGY IAL ART ASSOCIAT COMPL BI STUDY CATH PLMT 54549 [facility] BRITANY L HRT & 5 CULAR MAT ARTS CONSULTAN W/NJX & TS O ANGIO IMG S&I ECG 95667 CARDIOVAS BLACK JAZZMINE ROUTINE 5 CULAR ECG CONSULTAN W/LEAST TS O 12 LDS W/I&R INITIAL 26108 [facility] OBS[facility] 5 VALLEY ABR ON HEART CARE/DAY 70 MINUTES INJECTION J1644 NIKITA SHELTON HEPARIN 5 W W SODIUM REGIONAL REGIONAL PER 1000 MEDICAL MEDICAL UNITS INJECTION J2001 NIKITA MEAWVIE 5 W W LIDOCAINE REGIONAL REGIONAL HCL MEDICAL MEDICAL INTRAVENO US INFUS 10 MG INJECTION J3010 NIKITA SHELTON FENTANYL 5 W W [place] REGIONAL REGIONAL 0.1 MG MEDICAL MEDICAL INFUSION J7030 NIKITA SHELTON NORMAL 5 W W [place] REGIONAL REGIONAL SOLUTION MEDICAL MEDICAL 1000 CC INJECTION J2250 NIKITA SHELTON 5 W W [facility] PER MEDICAL MEDICAL 1 MG LOCM Q9967 NIKITA SHELTON [phone] W W MG/ML REGIONAL REGIONAL IODINE MEDICAL MEDICAL CONCENTRA TION PER ML O2 CONC 1 E1390 [facility] 5 HOME HOME 85%/>02 MEDICAL MEDICAL CONC AT EQUIPME [facility] FLW RATE BLOOD 62644 KUSH CURRIE COUNT 5 CO CO [facility] AUTO&AUTO DIFRNTL WBC COMPREHEN 17005 KUSH CURRIE SIVE 5 CO [facility] PANEL COMPREHEN 69655 GOMEZ DYER SIVE 5 [facility] METABOLIC INC INC PANEL BLOOD 52405 GOMEZ GOMEZ COUNT 5 [facility] COMPLETE INC INC AUTO&AUTO DIFRNTL WBC HEMOGLOBI 09509 GOMEZ DYER N 5 [facility] GLYCOSYLA INC INC VIVIAN A1C ADMN SET A7005 YOUR YOUR W/SM VOL 5 PHARMACY PHARMACY [facility] NEBULIZR NON-DISPB L O2 CONC 1 E1390 [facility] HOME HOME 85%/>02 [facility]ICAL [facility]ICAL CONC AT [facility] FLW RATE INJECTION J1030 KUSH CURRIE 5 CO [facility] DNISOLONE ACETATE 40 MG BLOOD 12062 KUSH CURRIE COUNT 5 CO CO [facility] AUTO&AUTO DIFRNTL WBC PRESSURIZ 37047 KUSH CURRIE ED/NONPRE 5 CO CO [facility] INHALATIO N TREATMENT THERAPEUT 10708 KUSH CURRIE IC 5 CO [facility] TIC/DX INJECTION SUBQ/IM BASIC 04417 KUSH CURRIE METABOLIC 5 CO [facility] CALCIUM TOTAL COLLECTIO 53342 KUSH CURRIE N VENOUS 5 CO [facility] VENIPUNCT URE RADIOLOGI 41813 [facility] EXAM 5 DESIRE JAM CHEST 2 EMERGENCY VIEWS PHYS FRONTAL&L ATERAL O2 CONC 1 E1390 [facility] 5 HOME HOME 85%/>02 MEDICAL MEDICAL CONC AT EQUIPME EQUIPME PRSC FLW RATE OPHTH 28123 [facility] 5 GRE GRE XM&EVAL COMPRE NEW PT 1/> VST O2 CONC 1 E1390 [facility] 5 HOME HOME 85%/>02 MEDICAL MEDICAL CONC AT EQUIPME EQUIPME PRS FLW RATE DRUG SCR G0434 LAB [facility] NOT 5 DARRYL DARRYL CHROMATOG HOLDINGS HOLDINGS RAPHIC; ANY NUMBER PT ENC [place] OF G6031 LAB [facility] LAB [facility] BENZODIAZ 5 DARRYL DARRYL EPINES HOLDINGS [place] OF G6040 [facility] ALCOHOL; 5 DARRYL DARRYL ANY HOLDINGS HOLDINGS [place]CIMEN EX[place] OF G6042 [facility] AMPHETAMI 5 DARRYL DARRYL NE OR HOLDINGS HOLD[place] G6044 [facility] D[facility] COCAINE 5 DARRYL DARRYL OR HOLDINGS HOLDINGS METABOLIT [place] OF G6053 [facility] D[facility] METHADONE 5 DARRYL DARRYL HOLDINGS HOLDINGS OPIATE G6056 [facility] DRUG AND 5 DARRYL DARRYL METABOLIT HOLDINGS HOLDINGS ES EACH PROCEDURE CREATININ 51542 [facility] E OTHER 5 DARRYL DARRYL SOURCE HOLDINGS HOLDINGS LIPID 38268 [facility] D[facility] PANEL 5 DARRYL DARRYL HOLDINGS HOLDINGS GENERAL 61287 LAB [facility] DIE[facility] HEALTH 5 DARRYL DARRYL PANEL HOLDINGS HOLDINGS COLLECTIO 74890 CHENCHO ELENA N VENOUS 5 CLINIC BLOOD VENIPUNCT URE O2 CONC 1 E1390 NAOMIE [facility]ARRION PORT [...] YOUR YOUR W/SM VOL 4 PHARMACY [facility] NE[facility]UL[facility] NON-DISPB L O2 CONC [...] CONC AT EQUIPME EQUIPME PRSC FLW RATE LOCM Q9967 [facility] [phone] 4 Y Y MG/ML HOSPITAL HOSPITAL IODINE CONCENTRA TION PER ML CT SOFT 11416 [facility] 4 Y Y NECK [facility] W/CONTRAS T MATERIAL CT THORAX 81769 [place] [facility]OGERS JONATAN 4 MEDICAL W/CONTRAS SERV T FOUNDATIO MATERIAL COLLECTIO 87627 CHENCHO Perera VENOUS 4 CLINIC NHI BLOOD VENIPUNCT URE COMPREHEN 25049 LAB [facility] LAB DIEGO SIVE 4 DARRYL DARRYL METABOLIC HOLDINGS HOLDINGS PANEL BLOOD 35007 LAB [facility] LAB DIE[facility] COUNT 4 DARRYL DARRYL COMPLETE [place] [address] LAB [facility] D[facility] PROSTATE 4 DARRYL DARRYL SPECIFIC [place] [address] [facility] D[facility] PROSTATE 4 DARRYL DARRYL SPECIFIC [place] [address] LAB D[facility] LAB DIEGO FREE 4 DARRYL DARRYL [place]RO[place] [address] LAB D[facility] LAB DIE[facility] TRIIODOTH 4 DARRYL DARRYL YRONINE HOLDINGS HOLDINGS T3 [place] TT[address] [place] [address] [facility] D[facility] D[facility] THYROID 4 DARRYL DARRYL STIMULATI HOLDINGS HOLDINGS NG HORMONE TSH O2 CONC 1 E1390 NAOMIE AKBAR DEL [...] YOUR YOUR W/SM VOL 4 PHARMACY PHARMACY [employer] [place] [address] LAB D[facility] LAB D[facility] THYROID 4 OF DARRYL STIMULATI DARRYL HOLDINGS NG HOLDINGS HORMONE TSH BLOOD 51882 LAB [facility] LAB DIEGO COUNT 4 OF DARRYL COMPLETE DARRYL HOLDINGS AUTOMATED HOLDINGS COMPREHEN 38239 LAB [facility] LAB DIEGO SIVE 4 OF DARRYL METABOLIC DARRYL HOLDINGS PANEL HOLDINGS LIPID 08291 LAB [facility] DIE[facility] PANEL 4 OF DARRYL DARRYL HOLDINGS HOLDINGS CREATINE 91946 LAB [facility] LAB DIE[facility] KINASE 4 OF DARRYL TOTAL DARRYL HOLDINGS HOLDINGS COLLECTIO 46004 CHENCHO FISCHER N VENOUS 4 CLINIC SE [place] BLOOD VENIPUNCT URE O2 CONC 1 E1390 NAOMIE AKBAR DEL [...] YOUR YOUR SM VOL 4 PHARMACY PHARMACY [employer] PNEUMAT NEBULIZR DISPBL IM ADM 24072 CHENCHO HUTCHINS- PRQ ID 4 CLIN[address] [place] SUBQ/IM NJXS 1 VACCINE IIV3 26358 CHENCHO HUTCHINS- VACCINE 4 CLINIC [facility] [place] SPLIT VIRUS 0.5 ML DOSAGE IM USE O2 CONC 1 E1390 NAOMIE ARTEAGARELL DEL [place] 4 HOME HOME 85%/>02 MEDICAL MEDICAL CONC AT EQUIPME EQUIPME PRSC FLW RATE ADMN SET A7003 YOUR YOUR SM VOL 3 PHARMACY PHARMACY [facility] PNEUMAT NEBULIZR DISPBL O2 CONC 1 E1390 NAOMIE ARTEAGARELL DEL [place] 3 HOME HOME 85%/>02 MEDICAL MEDICAL CONC AT EQUIPME EQUIPME PRSC FLW RATE O2 CONC 1 E1390 NAOMIE NAOMIE [place] 3 HOME HOME 85%/>02 MEDICAL MEDICAL CONC AT EQUIPME EQUIPME PRSC FLW RATE ADMN SET A7003 YOUR YOUR SM VOL 3 PHARMACY PHARMACY [facility] PNEUMAT NEBULIZR DISPBL DUPLEX 32945 A Fourth Act, A Fourth Act, SCAN 3 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 EXTRACRAN JESSIE ROMAN IAL ART CO HOS CO HOS COMPL BI STUDY LIPID 23558 LAB [facility] LAB DIEGO PANEL 3 DARRYL DARRYL HOLDINGS HOLDINGS GENERAL 26242 LAB DIEGO LAB DIEGO HEALTH 3 DARRYL DARRYL PANEL HOLDINGS HOLDINGS O2 CONC 1 E1390 NAOMIE AKBAR [place] 3 HOME HOME 85%/>02 MEDICAL MEDICAL CONC AT EQUIPME EQUIPME PRSC FLW RATE ADMN SET A7003 YOUR YOUR SM VOL 3 PHARMACY PHARMACY [facility] PNEUMAT NEBULIZR DISPBL O2 CONC 1 E1390 NAOMIE AKBAR [place] 3 HOME HOME 85%/>02 MEDICAL MEDICAL CONC AT EQUIPME EQUIPME PRSC FLW RATE ADMN SET A7003 YOUR YOUR SM VOL 3 PHARMACY PHARMACY [facility] PNEUMAT NEBULIZR DISPBL O2 CONC 1 E1390 NAOMIE NAOMIE [place] 3 HOME HOME 85%/>02 MEDICAL MEDICAL CONC AT EQUIPME EQUIPME PRSC FLW RATE COMPREHEN 35953 LAB [facility] LAB DIEGO SIVE 3 OF AMERIC METABOLIC DARRYL HOLDING PANEL HOLDINGS LIPID 60040 LAB DIEGO LAB DIEGO PANEL 3 OF AMERIC DARRYL HOLDING HOLDINGS CREATINE 33629 LAB [facility] LAB DIEGO KINASE 3 OF AMERIC TOTAL DARRYL HOLDING HOLDINGS BLOOD 93003 LAB DIEGO LAB DIEGO COUNT 3 OF AMERIC COMPLETE DARRYL [place] [address] LAB DIEGO LAB DIEGO THYROID 3 OF AMERIC STIMULATI DARRYL HOLDING NG HOLDINGS HORMONE TSH ADMN SET A7003 YOUR YOUR SM VOL 3 PHARMACY PHARMACY NONFILTR [facility] PNEUMAT NEBULIZR DISPBL O2 CONC 1 E1390 [facility] 3 HOME HOME 85%/>02 MEDICAL MEDICAL CONC AT EQUIPME EQUIPME PRSC FLW RATE ADMN SET A7003 YOUR YOUR SM VOL 3 PHARMACY PHARMACY NONFILTR [facility] PNEUMAT NEBULIZR DISPBL LOCM Q9967 [facility] [phone] 3 MG/ML DIAGNOSTI DIAGNOSTI IODINE C CENTER, C CENTER, CONCENTRA TION PER ML CT SOFT 97949 [facility] TISSUE 3 NECK DIAGNOSTI DIAGNOSTI W/CONTRAS C CENTER, C CENTER, T MATERIAL CT THORAX 66867 [facility] 3 W/CONTRAS DIAGNOSTI DIAGNOSTI T C CENTER, C CENTER, MATERIAL O2 CONC 1 E1390 [facility] 3 HOME HOME 85%/>02 MEDICAL MEDICAL CONC AT EQUIPME EQUIPME PRSC FLW RATE ADMN SET A7003 YOUR YOUR SM VOL 3 PHARMACY PHARMACY NONFILTR [facility] PNEUMAT NEBULIZR DISPBL O2 CONC 1 E1390 [facility] 3 HOME HOME 85%/>02 MEDICAL MEDICAL CONC AT EQUIPME EQUIPME PRSC FLW RATE ADMN SET A7003 YOUR YOUR SM VOL 3 PHARMACY PHARMACY NONFILTR [facility] PNEUMAT NEBULIZR DISPBL O2 CONC 1 E1390 [facility] 3 HOME HOME 85%/>02 MEDICAL MEDICAL CONC AT EQUIPME EQUIPME PRSC FLW RATE ADMN SET A7003 YOUR YOUR SM VOL 3 PHARMACY PHARMACY NONFILTR [facility] PNEUMAT NEBULIZR DISPBL O2 CONC 1 E1390 NAOMIE [facility]ARRION [facility] 3 HOME HOME 85%/>02 MEDICAL MEDICAL CONC AT EQUIPME EQUIPME PRSC FLW RATE NEBULIZER E0570 NAOMIE AKBAR WITH 3 HOME HOME COMPRESSO MEDICAL MEDICAL R EQUIPME EQUIPME ADMN SET A7003 YOUR YOUR SM VOL 3 [facility] P[facility] NEBULIZR DISPBL CYANOCOBA 85387 [facility] DIE[facility] JENNY 3 DARRYL DARRYL VITAMIN HOLDINGS HOLDINGS B-12 [place] [address] LAB DIEGO LAB DIEGO FOLIC 3 DARRYL DARRYL ACID HOLDINGS HOLDINGS SERUM BLOOD 57875 LAB DIEGO LAB DIEGO COUNT 3 DARRYL DARRYL COMPLETE HOLDINGS HOLDINGS AUTO&AUTO DIFRNTL WBC ADMN SET A7003 YOUR YOUR SM VOL 3 [facility] [place] [address] LAB DIEGO LAB DIEGO THYROID 3 DARRYL DARRYL STIMULATI HOLDINGS HOLDINGS NG HORMONE TSH LIPID 73970 LAB [facility] LAB DIEGO PANEL 3 DARRYL DARRYL HOLDINGS HOLDINGS COMPREHEN 20844 LAB [facility] LAB DIEGO SIVE 3 DARRYL DARRYL METABOLIC HOLDINGS HOLDINGS PANEL CT THORAX 36188 [facility] W/O 3 Y Y CONTRAST [facility] MATERIAL O2 CONC 1 E1390 NAOMIE [facility]ION [facility] 3 HOME HOME 85%/>02 MEDICAL MEDICAL CONC AT EQUIPME EQUIPME PRSC FLW RATE ADMN SET A7003 YOUR YOUR SM VOL 2 PHARMACY PHARMACY NONFILTR [facility] PNEUMAT NEBULIZR DISPBL O2 CONC 1 E1390 NAOMIE [facility]ION [facility] 2 HOME HOME 85%/>02 MEDICAL MEDICAL CONC AT EQUIPME EQUIPME PRSC FLW RATE CT THORAX 26471 ATTILI ATTILI 2 ANI ANI W/CONTRAS T MATERIAL CT SOFT 09388 RHONDA KHAN TISSUE 2 NECK W/CONTRAS T MATERIAL ADMN SET A7003 YOUR YOUR SM VOL 2 PHARMACY PHARMACY NONFILTR [facility] PNEUMAT NEBULIZR DISPBL O2 CONC 1 E1390 NAOMIE AKBAR [facility] 2 HOME HOME 85%/>02 MEDICAL MEDICAL CONC AT EQUIPME EQUIPME PRSC FLW RATE ADMN SET A7003 YOUR YOUR SM VOL 2 [facility] P[facility]UM[facility] NEBULIZR DISPBL O2 CONC 1 E1390 NAOMIE NAOMIE [place] 2 HOME HOME 85%/>02 MEDICAL MEDICAL CONC AT EQUIPME EQUIPME PRSC FLW RATE ADMN SET A7003 YOUR YOUR SM VOL 2 [facility] PNEUMAT NEBULIZR DISPBL IIV3 41760 MARGO ARAGON VACCINE 2 Apr SPLIT VIRUS 0.5 ML DOSAGE IM USE IM ADM 88912 MARGO ARAGON PRQ ID 2 Apr SUBQ/IM NJXS 1 VACCINE O2 CONC 1 E1390 NAOMIE NAOMIE [facility] [place] 2 HOME HOME 85%/>02 MEDICAL MEDICAL CONC AT EQUIPME EQUIPME PRSC FLW RATE ADMN SET A7003 YOUR YOUR SM VOL 2 [facility] PNEUMAT NEBULIZR DISPBL O2 CONC 1 E1390 NAOMIE NAOMIE [place] 2 HOME HOME 85%/>02 MEDICAL MEDICAL CONC AT EQUIPME EQUIPME PRSC FLW RATE ADMN SET A7003 YOUR YOUR SM VOL 2 PHARMACY PHARMACY NONFIL [employer] [facility] PNEUMAT NEBULIZR DISPBL POLYSOM 94663 [employer], 6/>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 4/> JESSIE ROMAN ADDL CO HOS CO HOS YESENIA ATTND COMPRE 71961 [facility] AUDIOMETR 2 Y Y Y [facility] THRESHOLD EVAL SP RECOGNIJ TYMPANOME 87239 [facility] 2 Y Y HOSPITAL HOSPITAL O2 CONC 1 E1390 NAOMIE NAOMIE [place] 2 HOME HOME 85%/>02 MEDICAL MEDICAL CONC AT EQUIPME EQUIPME PRSC FLW RATE ADMN SET A7003 YOUR YOUR SM VOL 2 PHARMACY PHARMACY NONFILTR [facility] PNEUMAT NEBULIZR DISPBL O2 CONC 1 E1390 NAOMIE NAOMIE [place] 2 HOME HOME 85%/>02 MEDICAL MEDICAL CONC AT EQUIPME EQUIPME PRSC FLW RATE ADMN SET A7003 YOUR YOUR SM VOL 2 PHARMACY PHARMACY [facility] PNEUMAT NEBULIZR DISPBL LOCM Q9967 [facility] 300-399 2 Y Y MG/ML HOSPITAL HOSPITAL IODINE CONCENTRA TION PER ML CT SOFT 31964 [facility] 2 Y Y NECK [facility] W/CONTRAS T MATERIAL CT THORAX 87650 [place] PAYNE 2 MEDICAL KAMILA W/CONTRAS SERV T FOUNDATIO MATERIAL CREATININ 51210 [facility] E BLOOD 2 Y Y [facility] O2 CONC 1 E1390 NAOMIE NAOMIE [place] 2 HOME HOME 85%/>02 MEDICAL MEDICAL CONC AT EQUIPME EQUIPME PRSC FLW RATE ADMN SET A7003 YOUR YOUR SM VOL 2 PHARMACY PHARMACY NONFILTR [facility] PNEUMAT NEBULIZR DISPBL O2 CONC 1 E1390 NAOMIE NAOMIE [place] 2 HOME HOME 85%/>02 MEDICAL MEDICAL CONC AT EQUIPME EQUIPME PRSC FLW RATE ADMN SET A7003 YOUR YOUR SM VOL 2 PHARMACY PHARMACY NONFILTR [facility] PNEUMAT NEBULIZR DISPBL LOCM Q9967 [employer], 300-399 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 MG/ML JESSIE JESSIE IODINE CO HOS CO HOS CONCENTRA TION PER ML CTA ABDL 85995 A Fourth Act, [employer], AORTA&BI 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 ILIOFEM JESSIE JESSIE W/CONTRAS CO HOS CO HOS T&POSTP CREATININ 41608 A Fourth Act, [employer], E BLOOD 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 AUTO&AUTO DIFRNTL WBC BASIC 02051 JESSIE ROMAN METABOLIC 2 CO CO [facility] CALCIUM TOTAL RADIOLOGI 34979 [facility] C EXAM 2 NGOZI CHEST 2 RADIOLOGY VIEWS ASSOCIAT FRONTAL&L ATERAL RADIOLOGI 29996 JESSIE ROMAN C 2 CO CO [facility] ON NECK SOFT TISSUE ADMN SET A7003 YOUR YOUR SM VOL 1 PHARMACY PHARMACY NONFILTR [employer] [facility] PNEUMAT NEBULIZR DISPBL IM ADM 55925 NABEELTrever ARAGON PRQ ID 1 Apr SUBQ/IM NJXS 1 VACCINE IIV3 40164 NABEELN NABEELN VACCINE 1 Apr SPLIT VIRUS 0.5 ML DOSAGE IM USE CT SOFT 64933 AMATO AMATO TISSUE 1 JONATAN JONATAN NECK W/CONTRAS T MATERIAL CT THORAX 12658 [facility] 1 Y Y [facility] MATERIAL ADMN SET A7003 YOUR YOUR SM VOL 1 PHARMACY PHARMACY NONFILTR [employer] [facility] PNEUMAT NEBULIZR DISPBL LOCM Q9967 [facility] 300-399 1 Y Y MG/ML [facility] IODINE CONCENTRA TION PER ML VISUAL 39188 [facility] FIELD XM 1 GRE GRE UNI/BI W/INTERP EXTENDED EXAM RADEX 81982 HAGISIDRO CRAIN SPINE 1 EIDER ULICES EIDER ULICES LUMBOSACR AL MINIMUM 4 VIEWS ADMN SET A7003 YOUR YOUR SM VOL 1 PHARMACY PHARMACY NONFILTR [employer] [facility] PNEUMAT NEBULIZR DISPBL RADIOLOGI 27709 JESSIE Jimenez EXAM 1 CO CO CHEST 2 [facility] VIEWS FRONTAL&L ATERAL PRESSURIZ 18791 CHENCHO ARAGON ED/NONPRE 1 CLINIC CECILIA SSURIZED [place] [address] [facility] FREE 1 Y Y THYROXINE HOSPITAL HOSPITAL COLLECTIO 94447 [facility] N VENOUS 1 Y Y BLOOD [facility] VENIPUNCT URE GENERAL 06531 [facility] 1 Y Y PANEL [facility] MEADOWVIE MEADOWVIE SIVE 1 W W METABOLIC REGIONAL REGIONAL PANEL MEDICAL MEDICAL COLLECTIO 01648 MEADOWVIE MEADOWVIE N VENOUS 1 W W BLOOD REGIONAL REGIONAL [place] [address] MEADOWVIE MEADOWVIE FREE 1 W W THYROXINE [place] [address] MEADOWVIE MEADOWVIE THYROID 1 W W STIMULATI REGIONAL REGIONAL NG MEDICAL MEDICAL HORMONE TSH BLOOD 60111 MEADOWVIE MEADOWVIE COUNT 1 W W COMPLETE REGIONAL REGIONAL AUTOMATED MEDICAL MEDICAL LARYNGOSC 24249 TIFFANIE BRUMFIELD OPY 1 MEDICAL FLEXIBLE SERV DIAGNOSTI FOUNDATIO C PET 38022 [facility] [address] [facility] [address] RADIOLOGY ATTENUATI ASSOCIAT [place] [address] JESSIE ROMAN THYROID 1 CO CO STIMULATI [facility] [place] [address] JESSIE ORMAN THYROXINE 1 CO CO TOTAL [facility] [place] [address] LABONE OF LABONE OF THYROID 1 [facility] [place] [address] [facility] UREA 1 Y Y NITROGEN HOSPITAL [facility] QUANTITAT [place] CREATININ 87933 [facility] E BLOOD 1 Y Y HOSPITAL HOSPITAL LARYNGOSC 23084 TIFFANIE FROST OPY 1 MEDICAL CECILIA FLEXIBLE SERV DIAGNOSTI FOUNDATIO C COLLECTIO 85949 [facility] N VENOUS 1 Y Y BLOOD [facility] VENIPUNCT URE CT SOFT 46958 [facility] FABIENNE TISSUE 1 Y NECK HOSPITAL W/CONTRAS T MATERIAL CT THORAX 77733 [facility] 1 Y Y W/[facility] T MATERIAL COLLECTIO 64547 NIKITA SHELTON N VENOUS 1 W W BLOOD [facility] REGIONAL VENIPUNCT MEDICAL MEDICAL URE COMPREHEN 85034 NIKITA SHELTON SIVE 1 W W METABOLIC [facility]AL [facility] [place] [address] NIKITA SHELTON THYROID 1 W W STIMULATI REGIONAL REGIONAL NG [place] [address] NIKITA HILLWALFONSO FREE 1 W W THYROXINE [facility]AL [facility] MEDICAL MEDICAL BLOOD 35709 NIKITA HILLWALFONSO COUNT 1 W W COMPLETE [facility] [place] [place] [address] KUSH CURRIE SWALLOWIN 1 [facility] DYSFUNCTI ON&/[place] [address] CURRIETAMI CURRIE SWALLOWIN 1 [facility] DYSFUNCTI ON&[place] [address] CURRIETAMI CURRIE SWALLOWIN 1 [facility] DYSFUNCTI ON&/[place] [address] LABONE OF LABONE OF THYROID 1 [facility] STIMULATI NG HORMONE TSH COLLECTIO 81984 [facility] N VENOUS 1 [place] [address] CURRIETAMI CURRIE SWALLOWIN 1 [facility] DYSFUNCTI ON&/[place] [address] CURRIETAMI CURRIE SWALLOWIN 1 [facility] HOSPITAL DYSFUNCTI ON&[place] [address] LABONE OF LABONE OF THYROID 1 [facility] [place] [address] CURRIE CURRIE SWALLOWIN 1 [facility] HOSPITAL DYSFUNCTI ON&/[place] [address] CURRIE CURRIE SWALLOWIN 1 [facility] DYSFUNCTI ON&/ORAL FUNCJ FEEDING LARYNGOSC [address]751 [place] SANT[facility] OPY 1 MEDICAL CECILIA [place] [address] KUSH CURRIE SWALLOWIN 0 [facility] HOSP[facility] DYSFUNCTI ON&/[place] [address] KUSH CURRIE SWALLOWIN 0 [facility] DYSFUNCTI ON&/[place] [address] NIKITA SHELTNO THYROID 0 W W STIMULATI [facility] [place] [address] NIKITA HILLWALFONSO FREE 0 W W THYROXINE [facility] MEDICAL BLOOD 42395 NIKITA MEADOWVIE COUNT 0 W W COMPLETE [facility] AUTOMATED MEDICAL MEDICAL COLLECTIO 47051 NIKITA SHELTON N VENOUS 0 W W BLOOD [facility] VENIPUNCT MEDICAL MEDICAL URE COMPREHEN 93077 NIKITA SHELTON SIVE 0 W W METABOLIC [facility] [place] [address] KUSH CURRIE SWALLOWIN 0 [facility]OSP[facility] DYSFUNCTI ON&/[place] [address] KUSH CURRIE SWALLOWIN 0 [facility] DYSFUNCTI ON&/[place] [address] KUSH CURRIE SWALLOWIN 0 [facility]OSP[facility] DYSFUNCTI ON&/[place] [address] KUSH CURRIE SWALLOWIN 0 [facility]OS[facility] DYSFUNCTI ON&/[place] [address] KUSH CURRIE SWALLOWIN 0 [facility] DYSFUNCTI ON&/[place] [address] KUSH CURRIE SWALLOWIN 0 [facility] DYSFUNCTI ON&/ORAL FUNCJ FEEDING TAPE A4450 KUSH CURRIE NON-WATER 0 CO HOSP CO HOSP PROOF PER MED EQUIP MED EQUIP 18 & & SQUARE INCHES GAUZE A6402 KUSH CURRIE NON-IMPRE 0 CO HOSP CO HOSP G STERL MED EQUIP MED EQUIP 16 SQ/< & & W/O ADHES BORDR ENTERAL B4034 KUSH CURRIE FEEDING 0 CO HOSP PR HOSP SUPPLY MED EQUIP MED EQUIP KIT; & & [place] [address] K[facility] SWALLOWIN 0 [facility] DYSFUNCTI ON&/[place] [address] K[facility] CURRIE SWALLOWIN 0 [facility] DYSFUNCTI ON&[place] [address] K[facility] CURRIE SWALLOWIN 0 [facility] DYSFUNCTI ON&/[place] [address] K[facility] CURRIE SWALLOWIN 0 [facility] DYSFUNCTI ON&/[place] [address] [facility] [address] RADIOLOGY [facility] [place] [address] K[facility] CURRIE SWALLOWIN 0 [facility] DYSFUNCTI ON&/[place] [address] KUSH CURRIE SWALLOWIN 0 [facility] DYSFUNCTI ON&[place] [address] KUSH CURRIE SWALLOWIN 0 [facility] DYSFUNCTI ON&/[place] [address] KUSH CURRIE SWALLOWIN 0 [facility] DYSFUNCTI ON&/[place] [address] K[facility] CUR[facility]E SWALLOWIN 0 [facility] DYSFUNCTI ON&/ORAL FUNCJ FEEDING ENTERAL B4034 [facility] FEEDING 0 CO H[facility] CO HOSP SUPPLY MED EQUIP MED EQUIP KIT; & & SYRINGE FED PER DAY TAPE A4450 [facility] NON-WATER 0 CO H[facility] CO HOSP PROOF PER MED EQUIP MED EQUIP 18 & & [place] [address] K[facility] CURRIE SWALLOWIN 0 [facility] DYSFUNCTI ON&/[place] [address] [facility] IRON 0 [facility] PREALBUMI 50970 [facility] N 0 [place] [address] [facility] CH[facility] ZINC [address] [facility] [address] [facility] HEALTH 0 [facility] PANEL CYANOCOBA 03346 [facility] JENNY 0 [facility] VITAMIN B-12 [place] [address] [facility] FOLIC 0 [facility] [place] [address] K[facility] CURRI[facility] SWALLOWIN 0 CO [facility] DYSFUNCTI ON&/ORAL FUNCJ FEEDING CULTURE 90326 JESSIE ROMAN BACTERIAL 0 CO CO [facility] QUANTTATI VE COLONY COUNT URINE ANTIBODY 34653 JESSIE ROMAN HELICOBAC 0 CO CO [address] [facility] PYLORI BLOOD 29072 JESSIE ROMAN COUNT 0 CO CO SMEAR [facility] MCRSCP W/[place] [address] JESSIE ROMAN LIPASE 0 CO [facility] COMPREHEN 98331 JESSIE ROMAN SIVE 0 CO CO METABOLIC [facility] PANEL URNLS DIP 37582 JESSIE LABORATOR 0 CO Y STICK/TAB H[facility]PITAL CORPORATI LET ON OF [place] [address] JESSIE ROMAN AMYLASE 0 CO [facility] COLLECTIO 96795 JESSIE LABORATOR N VENOUS 0 CO Y BLOOD [facility] CORPORATI VENIPUNCT ON OF AM URE THER 32526 JESSIE ROMAN PROPH/DX 0 CO CO NJX IV [facility] PUSH SINGLE/1S T SBST/[place] [address] K[facility] CURRIE SWALLOWIN 0 CO CO [facility] DYSFUNCTI ON&[place] [address] KUSH CURRIE SWALLOWIN 0 CO CO [facility] DYSFUNCTI ON&/[place] [address] K[facility] CURRIE SWALLOWIN 0 CO CO [facility] DYSFUNCTI ON&/ORAL FUNCJ FEEDING MOTION 57395 KUSH CURRIE FLUOR 0 CO CO [facility] SWLNG FUNCJ C/V REC SWALLOWIN 276[address] JESSICA WELDON FUNCJ 0 NGOZI W/CINERAD RADIOLOGY IOGRAPY/[place] [address] [facility] CO CO [facility] DYSFUNCTI ON&/ORAL FUNCJ FEEDING EVAL 59188 KUSH CURRIE ORAL&PHAR 0 CO CO YNGEAL [facility] SWLNG FUNCJ BLOOD 31115 NIKITA [place] COUNT 0 W W COMPLETE [facility] AUTOMATED MEDICAL MEDICAL COLLECTIO 38289 NIKITA SHELTON N VENOUS 0 W W BLOOD [facility] [place] [address] JESSIE JESSIE INFUSION 0 CO CO HYDRATION [facility] INITIAL 31 MIN-1 [place] [address] [facility] HYDRATION [facility] [place] [place] [address] JESSIE JESSIE INFUSION 0 CO CO THERAPY/P [facility] ROPHYLAXI S /DX 1ST TO 1 HR LARYNGOSC 83559 [facility] OPY W/WO 0 Y Y TRACHEOSC [facility] OPY W/MICRO/T [place] ANES 57211 [place] ESOPH 0 MEDICAL CORY THYRD SERV LARYNX FOUNDATIO TRACH & LYMPH NECK 1YR ESOPHAGOS 03303 [place] COPY 0 MEDICAL CECILIA FLEXIBLE SERV TRANSORAL FOUNDATIO DIAGNOSTI C DILATION 61189 [facility] ESOPH 0 Y Y UNGUIDED [facility] SOUND/YVETTE GIE 1/MULT PASS RINGERS J7120 [facility] LACTATE 0 Y Y INFUSION [facility] UP TO 1000 CC INJECTION J2250 [facility] 0 Y Y MIDAZOLAM [facility] HCL PER 1 MG INJECTION J1100 [facility] 0 Y Y DEXAMETHO [facility] SONE SODIUM PHOSPHATE 1 MG INJECTION J2710 [facility] 0 Y Y NEOSTIGMI [facility] NE METHYLSUL FATE UP TO 0.5 MG INJECTION J3010 [facility] FENTANYL 0 Y Y CITRATE [facility] 0.1 MG INJECTION J0330 [facility] 0 Y Y SUCCINYLC [facility] HOLINE CHLORIDE UP TO [address] SOFT 40273 [facility] TISSUE 0 Y Y NECK [facility] W/CONTRAS T MATERIAL COLLECTIO 17024 [facility] N VENOUS 0 Y Y BLOOD [facility] VENIPUNCT URE CT THORAX 16217 [facility] 0 Y Y W/CONTRAS [facility] T MATERIAL CREATININ 36836 [facility] E BLOOD 0 Y Y [facility] [place] [address] [facility] UREA 0 Y Y NITROGEN [facility] QUANTITAT [place] MOTION 44087 [facility] FLUOR 0 CO CO EVAL [facility] SWLN FUNCJ C/V REC SWALLOWIN 24595 JESSICA Benson FUNCJ 0 NGOZI W/CINERAD RADIOLOGY IOGRAPY/[place] [address] JESSIE ROMAN INFUSION 0 CO CO THERAPY/P [facility] ROPHYLAXI S /DX 1ST TO 1 [place] [address] JESSIE ROMAN INFUSION 0 CO CO THERAPY [facility] PROPHYLAX IS/[place] [address] JESSIE ROMAN INFUSION 0 CO CO THERAPY [facility] PROPHYLA[place] [address] JESSIE BURRELLS INFUSION 0 CO CO THERAPY/P [facility] ROPHYLAXI S /DX 1ST TO 1 [place] [address] JESSIE ROMAN INFUSION 0 CO CO THERAPY/P [facility] ROPHYLAXI S /DX 1ST TO [place] [address] JESSIE BURRELLS INFUSION 0 CO CO THERAPY [facility] PROPHYLAX IS/[place] [address] JESSIE BURRELLS INFUSION 0 CO CO THERAPY/P [facility] ROPHYLAXI S /DX 1ST TO 1 [place] [address] JESSIE BURRELLS INFUSION 0 CO CO THERAPY [facility] PROPHYLAX IS/DX EA HOUR BLOOD 67006 JESSIE ROMAN COUNT 0 CO CO COMPLETE [facility] AUTO&AUTO DIFRNTL WBC CULTURE 09511 JESSIE ROMAN BACTERIAL 0 CO PR BLOOD [facility] AEROBIC W/ID ISOLATES RADIOLOGI 26487 JESSIE ROMAN C EXAM 0 CO CO CHEST 2 HOSPITAL HOSPITAL VIEWS FRONTAL&L ATERAL COLLECTIO 58611 JESSIE ROMAN N VENOUS 0 CO [facility] VENIPUNCT URE URNLS DIP 76949 JESSIE JESSIE 0 CO CO STICK/TAB HOSPITAL HOSPITAL LET REAGENT AUTO MICROSCOP Y COMPREHEN 24719 JESSIE SANCHEZOLAS SIVE 0 CO CO METABOLIC [facility] PANEL RESP E0600 NAOMIE NAOMIE SUCTION 0 HOME MED HOME MED PUMP HOME EQUIP. L EQUIP. L MODEL PRTBLE/ST ATION ELEC TAPE A4450 CURRIE CURRIE NON-WATER 0 CO HOSP CO HOSP PROOF PER MED EQUIP MED EQUIP 18 & & SQUARE INCHES COMPREHEN 48502 MEADOWVIE MEADOWVIE SIVE 0 W W METABOLIC [facility] CENTER COLLECTIO 51865 JESSICAANGELA LOPEZWVIE N VENOUS 0 W W BLOOD [facility] VENIPUNCT [facility]NOTE 3] CENTER BLOOD 30401 MEADOWVIE MEADOWVIE COUNT 0 W W [facility] [place] [address] ONCOLOGY JAJA, INFUSION 0 HEMATOLOG BRITTANY M HYDRATION Y CARE INITIAL INC 31 MIN-1 HOUR BLOOD 75442 CURRIE CURRIE COUNT 0 CO [facility] AUTO&AUTO DIFRNTL WBC COMPREHEN 14308 KUSH CURRIE SIVE 0 CO [facility] PANEL RADEX 69533 [facility] SPINE 0 EIDER, LUMBOSACR RADIOLOGY NANDINI AL 2/3 K VIEWS ASSOCIATE S PSC SBSQ 77823 [facility] 0 CLINIC CHAMP CARE/DAY PSC 15 MINUTES RADIOLOGI 48108 EMILIANOBarbara GALO EXAM 0 CECI C CHEST 2 RADIOLOGY VIEWS FRONTAL&L ASSOCIATE ATERAL S PSC OBSERVATI 24950 [facility] ON CARE 0 , MINOR , MINOR DISCHARGE MANAGEMEN T INITIAL 29628 [facility] OBSERVATI 0 , MINOR , MINOR ON CARE/DAY 70 MINUTES HOSPITAL G0378 JESSIE ROMAN OBSERVATI 0 CO CO ON HOSPITAL HOSPITAL SERVICE PER HOUR RADEX 83083 [facility] [place], ABDOMEN 1 0 CECI Jimenez RADIOLOGY ANTEROPOS TERIOR ASSOCIATE VIEW S PSC RADEX ABD 82504 JESSIE ROMAN COMPL 0 CO CO AQT ABD [facility] W/S/E/D VIEWS 1 VIEW CH COLLECTIO 51741 JESSIE ROMAN N VENOUS 0 CO CO BLOOD [facility] VENIPUNCT URE RADIOLOGI 09823 [facility] [place], C 0 CECI Jimenez EXAMINATI RADIOLOGY ON CHEST SINGLE ASSOCIATE VIEW S PSC FRONTAL COMPREHEN 47409 JESSIE ROMAN SIVE 0 CO CO METABOLIC [facility] PANEL BLOOD 29509 JESSIE ROMAN COUNT 0 CO CO COMPLETE [facility] AUTO&AUTO DIFRNTL WBC BLOOD 36608 JESSIE ROMAN COUNT 0 CO CO SMEAR [facility] MCRSCP W/MNL DIFRNTL WBC COUNT THROMBOPL 81493 JESSIE ROMAN ASTIN 0 CO CO TIME [facility] PARTIAL PLASMA/WH OLE BLOOD PROTHROMB 88290 JESSIE ROMAN IN TIME 0 CO CO [facility] [place] [address] JESSIE ROMAN INFUSION 0 CO CO THERAPY/P HOSPITAL [facility] ROPHYLAXI S /DX 1ST TO 1 HR THER 93274 JESSIE ROMAN PROPH/DX 0 CO CO NJX IV [facility] PUSH SINGLE/1S T SBST/[place] [address] JESSIE ROMAN INFUSION 0 CO CO HYDRATION [facility] INITIAL 31 MIN-1 HOUR RADJ DLVR 77338 [place] INA 3/> 0 MEDICAL PRA AREAS SERV CUSTOM FOUNDATIO BLKING 6-10MEV RADJ DLVR 55584 [place] INA 3/> 0 MEDICAL PRA AREAS SERV CUSTOM FOUNDATIO BLKING 6-10MEV RADIATION 58463 [place] INA 0 MEDICAL PRA TREATMENT SERV FOUNDATIO MANAGEMEN T 5 TREATMENT S RADJ DLVR 56996 [place] INA 3/> 0 MEDICAL PRA AREAS SERV CUSTOM FOUNDATIO BLKING 6-10MEV RADJ DLVR 34760 [place] INA 3/> 0 MEDICAL PRA AREAS SERV CUSTOM FOUNDATIO BLKING 6-10MEV THERAPEUT 29857 [place] I[place] IC 0 MEDICAL PRA RADIOLOGY SERV PORT FOUNDATIO IMAGES(S) RADIATION 80177 [place] INA 0 MEDICAL PRA TREATMENT SERV FOUNDATIO MANAGEMEN T 5 TREATMENT S COMPREHEN 40253 NIKITA LOPEZWALFONSO SIVE 0 W W METABOLIC [facility] CENTER COLLECTIO 29710 JESSICAANGELA LOPEZWVIE N VENOUS 0 W W BLOOD [facility] CENTER CONTINUIN 16134 [place] INA G MEDICAL 0 MEDICAL PRA PHYSICS SERV CONSLTJ FOUNDATIO [place] THERAPEUT 09655 ONCOLOGY JAJA CHR IC 0 HEMATOLOG INJECTION Y [place] [address] ONCOLOGY JAJA CHR INFUSION 0 HEMATOLOG THER Y CARE IN PROPH ADDL SEQUENTIA L [place] 1 [place] [address] ONCOLOGY JAJA CHR INFUSION 0 HEMATOLOG HYDRATION Y CARE IN EACH ADDITIONA L HOUR BLOOD 88868 NIKITA SHELTON COUNT 0 W W COMPLETE [facility] INJECTION J2469 ONCOLOGY ONCOLOGY 0 HEMATOLOG HEMATOLOG [place] Y CARE IN Y CARE IN OCTAVIANO HCL 25 MCG INJECTION J9060 ONCOLOGY JAJA CHR 0 HEMATOLOG CISPLATIN Y CARE IN POWDER OR SOLUTION 10 MG CHEMOTX 06468 ONCOLOGY JAJA CHR ADMN IV 0 HEMATOLOG NFS TQ UP Y CARE IN 1 HR SBST/DRUG RADJ DLVR 60582 [place] INA 3/> 0 MEDICAL PRA AREAS SERV CUSTOM FOUNDATIO BLKING 6-10MEV RADJ DLVR 83015 [place] INA 3/> 0 MEDICAL PRA AREAS SERV CUSTOM FOUNDATIO BLKING 6-10MEV CONTINUIN 35012 [place] I[place] G MEDICAL 0 MEDICAL PRA PHYSICS SERV CONSLTJ FOUNDATIO [place] RADJ DLVR 14823 [place] I[place] 3/> 0 MEDICAL PRA AREAS SERV CUSTOM FOUNDATIO BLKING 6-10MEV RADJ DLVR 92931 [place] I[place] 3/> 0 MEDICAL PRA AREAS SERV CUSTOM FOUNDATIO BLKING 6-10MEV RADJ DLVR 48763 [place] I[place] 3/> 0 MEDICAL PRA AREAS SERV CUSTOM FOUNDATIO BLKING 6-10MEV RADIATION 60348 [place] INA 0 MEDICAL PRA TREATMENT SERV FOUNDATIO MANAGEMEN T 5 TREATMENT S RADJ DLVR 64900 [place] INA 3/> 0 MEDICAL PRA AREAS SERV CUSTOM FOUNDATIO BLKING 6-10MEV GENERAL 50749 [facility] 0 [facility] INC PANEL LIPID 09860 [facility] PANEL 0 [facility] INC RADJ DLVR 04883 [place] I[place] 3/> 0 MEDICAL PRA AREAS SERV CUSTOM FOUNDATIO BLKING 6-10MEV BASIC 66788 [place] I[place] RADIATION 0 MEDICAL PRA SERV DOSIMETRY FOUNDATIO CALCULATI ON TELETHERA 18137 [place] PY 0 MEDICAL PRA ISODOSE SERV PLAN FOUNDATIO COMPLETE THER RAD 85880 [place] SIMULAJ-A 0 MEDICAL PRA IDED SERV FIELD FOUNDATIO SETTING SIMPLE CONTINUIN 76506 [place] I[place] G MEDICAL 0 MEDICAL PRA PHYSICS [place] [address] [place] DEVICES 0 MEDICAL PRA DESIGN & SERV CONSTRUCT FOUNDATIO ION COMPLEX RADJ DLVR 68913 [place] I[place] 3/> 0 MEDICAL PRA AREAS SERV CUSTOM FOUNDATIO BLKING 6-10MEV RADIATION 32978 [place] INA 0 MEDICAL PRA TREATMENT SERV FOUNDATIO MANAGEMEN T 5 TREATMENT S RADJ DLVR 65640 [place] ZHANE, 3/> 0 MEDICAL DAVID AREAS SERV CUSTOM FOUNDATIO BLKING 6-10MEV RADJ DLVR 84245 [place] ZHANE, 3/> 0 MEDICAL DAVID AREAS SERV CUSTOM FOUNDATIO BLKING 6-10MEV CONTINUIN 52488 [place] I[place] G MEDICAL 0 MEDICAL PRA PHYSICS SERV CONSLTJ FOUNDATIO [place] RADJ DLVR 16857 [place] I[place] 3/> 0 MEDICAL PRA AREAS SERV CUSTOM FOUNDATIO BLKING 6-10MEV RADIATION 04118 [place] INA 0 MEDICAL PRA TREATMENT SERV FOUNDATIO MANAGEMEN T 5 TREATMENT S RADJ DLVR 22584 [place] I[place] 3/> 0 MEDICAL PRA AREAS SERV CUSTOM FOUNDATIO BLKING 6-10MEV COMPREHEN 12618 MEADOWVIE MEADOWVIE SIVE [address] [facility] BASIC 91690 [place] I[place] RADIATION 0 MEDICAL PRA SERV DOSIMETRY FOUNDATIO CALCULATI ON TELETHERA 16580 [place] PY 0 MEDICAL PRA ISODOSE SERV PLAN FOUNDATIO COMPLETE COLLECTIO 15779 MEADALIAALFONSO LOPEZWVIE N VENOUS 0 W W BLOOD [facility] BLOOD 08965 MEADOWVIE MEADOWVIE COUNT 0 W W COMPLETE [facility] RADJ DLVR 59326 [place] I[place] 3/> 0 MEDICAL PRA AREAS SERV CUSTOM FOUNDATIO BLKING 6-10MEV RADJ DLVR 78204 [place] I[place] 3/> 0 MEDICAL PRA AREAS SERV CUSTOM FOUNDATIO BLKING 6-10MEV LARYNGOSC 14440 [place] OPY 0 MEDICAL , HANNAH FLEXIBLE SERV DIAGNOSTI FOUNDATIO C RADJ DLVR 40485 [place] I[place] 3/> 0 MEDICAL PRA AREAS SERV CUSTOM FOUNDATIO BLKING 6-10MEV RADJ DLVR 19818 [place] I[place] 3/> 0 MEDICAL PRA AREAS SERV CUSTOM FOUNDATIO BLKING 6-10MEV THERAPEUT 59212 [place] I[place] IC 0 MEDICAL PRA RADIOLOGY SERV PORT FOUNDATIO IMAGES(S) CONTINUIN 51037 [place] I[place] G MEDICAL 0 MEDICAL PRA PHYSICS SERV CONSLTJ FOUNDATIO [place] RADJ DLVR 65978 [place] INA 3/> 0 MEDICAL PRA AREAS SERV CUSTOM FOUNDATIO BLKING 6-10MEV RADIATION 42206 [place] INA 0 MEDICAL PRA TREATMENT SERV FOUNDATIO MANAGEMEN T 5 TREATMENT S RADJ DLVR 27291 [place] I[place] 3/> 0 MEDICAL PRA AREAS SERV CUSTOM FOUNDATIO BLKING 6-10MEV RADJ DLVR 32251 [place] I[place] 3/> 0 MEDICAL PRA AREAS SERV CUSTOM FOUNDATIO BLKING 6-10MEV RADJ DLVR 86349 [place] I[place] 3/> 0 MEDICAL PRA AREAS SERV CUSTOM FOUNDATIO BLKING 6-10MEV RADJ DLVR 10116 [place] I[place] 3/> 0 MEDICAL PRA AREAS SERV CUSTOM FOUNDATIO BLKING 6-10MEV THERAPEUT 04925 [place] INA IC 0 MEDICAL PRA RADIOLOGY SERV PORT FOUNDATIO IMAGES(S) CONTINUIN 13635 [place] I[place] G MEDICAL 0 MEDICAL PRA PHYSICS SERV CONSLTJ FOUNDATIO [place] RADIATION 83849 [place] INA 0 MEDICAL PRA TREATMENT SERV FOUNDATIO MANAGEMEN T 5 TREATMENT S RADJ DLVR 76427 [place] I[place] 3/> 0 MEDICAL PRA AREAS SERV CUSTOM FOUNDATIO BLKING 6-10MEV RADJ DLVR 17261 [place] I[place] 3/> 0 MEDICAL PRA AREAS SERV CUSTOM FOUNDATIO BLKING 6-10MEV RADJ DLVR 57498 [place] I[place] 3/> 0 MEDICAL PRA AREAS SERV CUSTOM FOUNDATIO BLKING 6-10MEV RADJ DLVR 84607 [place] I[place] 3/> 0 MEDICAL PRA AREAS SERV CUSTOM FOUNDATIO BLKING 6-10MEV RADJ DLVR 86463 [place] I[place] 3/> 0 MEDICAL PRA AREAS SERV CUSTOM FOUNDATIO BLKING 6-10ME[place] [address] [place] I[place] DEVICES 0 MEDICAL PRA DESIGN & SERV CONSTRUCT FOUNDATIO ION COMPLEX THER RAD 52978 [place] SIMULAJ-A 0 MEDICAL PRA IDED SERV FIELD FOUNDATIO SETTING SIMPLE RADIATION 73278 [place] INA 0 MEDICAL PRA TREATMENT SERV FOUNDATIO [place]GEMEN T [address] [place] [address] [place] MOJGAN GUIDANCE 0 MEDICAL EDU RADIATION SERV THERAPY FOUNDATIO FLDS PLACEMENT CONTINUIN 94444 [place] I[place] G MEDICAL 0 MEDICAL PRA PHYSICS SERV CONSLTJ FOUNDATIO [place] ANES 19954 [place] VITAL STEVIE ESOPH 0 MEDICAL THYRD SERVICES LARYNX TRACH & LYMPH NECK 1YR LARYNGOSC 44802 [place] OPY 0 MEDICAL CECILIA W/BIOPSY SERV MICROSCOP FOUNDATIO E/TELESCO PE EGD 55708 [place] CHRISTINA PERCUTANE 0 MEDICAL RICH OUS SERV PLACEMENT [place] [address] [place] HDZ SURG 0 MEDICAL VARGAS PATHOLOGY SERV FOUNDATIO GROSS&KAMILA ROSCOPIC EXAM L HRT 82906 [place] LINO CATHETERI 0 MEDICAL CALEB ZATION SERV RETROGRAD FOUNDATIO E BRACHIAL PERQ INJECTION 71748 [place] CARDIAC 0 MEDICAL CALEB CATHJ L SERV VENTR/L [place] [address] [place] C-CATHJ 0 MEDICAL CALEB F/SLCTV C SERV ANGRPH FOUNDATIO I SI&R 12329 [place] F/NJX PX 0 MEDICAL CALEB DURING SERV C-CATHJ FOUNDATIO VENTR&/AT R ANGRPH I SI&R 99855 [place] F/NJX PX 0 MEDICAL CALEB DURING SERV C-CATHJ FOUNDATIO PULM&/OR SELECT ECG 19961 [facility] ROUTINE 0 Y Y ECG HOSPITAL HOSPITAL W/LEAST 12 LDS TRCG ONLY W/O I&R ECG 33189 [place] MOJICA ROUTINE 0 MEDICAL NAN ECG SERV W/LEAST FOUNDATIO 12 LDS I&R ONLY CT SOFT 53730 [place] AMATO TISSUE 0 MEDICAL JONATAN NECK SERV W/CONTRAS FOUNDATIO T MATERIAL CT THORAX 58531 [place] ATTILI 0 MEDICAL ANI W/CONTRAS SERV T FOUNDATIO MATERIAL COLLECTIO 60210 [facility] N VENOUS 0 Y Y BLOOD [facility] VENIPUNCT URE COMPREHEN 62083 [facility] SIVE 0 Y Y METABOLIC [facility] PANEL BLOOD 61066 [facility] COUNT 0 Y Y COMPLETE [facility] AUTOMATED PROTHROMB 21213 [facility] IN TIME 0 Y Y [facility] THROMBOPL 25556 [facility] ASTIN 0 Y Y TIME [facility] PARTIAL PLASMA/[place] [address] [facility] FREE 0 Y Y THYROXINE [facility] [place] [address] [facility] THYROID 0 Y Y STIMULATI [facility] NG HORMONE TSH CT THORAX [address] [place] [address] JOAQUÍN S W/CONTRAS RADIOLOGY T MATERIAL ASSOCIATE S PSC ADMN SET A7003 YOUR YOUR SM VOL 8 PHARMACY PHARMACY NONFILTR [facility] PNEUMAT NEBULIZR DISPBL THER 74604 JESSIE ROMAN PROPH/DX 8 [facility] SUBQ/IM THER 76071 JESSIE ROMAN PROPH/DX 8 [facility] SUBQ/IM THER 07003 JESSIE ROMAN PROPH/DX 8 [facility] SUBQ/IM RADIOLOGI 51944 JESSIE ROMAN C EXAM 8 [facility] CHEST [address] [place] [address] VIEWS FRONTAL&L ATERAL O2 CONC 1 E1390 [facility] 8 HOME MED HOME MED 85%/>02 EQUIP. EQUIP. CONC AT [facility] FLW RATE O2 CONC 1 E1390 [facility] 8 HOME MED HOME MED 85%/>02 EQUIP. EQUIP. CONC AT [facility] FLW RATE O2 CONC 1 E1390 [facility] 8 HOME MED HOME MED 85%/>02 EQUIP. EQUIP. CONC AT [facility] FLW RATE LIPID 31451 [facility] PANEL 8 [facility] CYANOCOBA 52923 [facility] JENNY 8 [facility] VITAMIN B-12 COMPREHEN 23608 [facility] SIVE 8 [facility] [place] [address] [facility] THYROID 8 [facility] STIMULATI NG HORMONE TSH THER 26135 JESSIE ROMAN PROPH/DX 8 CO CO NJX [facility] SUBQ/IM ECG 44814 JESSIE ROMAN ROUTINE 8 CO PR ECG [facility] W/LEAST 12 LDS TRCG ONLY W/O I&R DEMO&/VINICIO 87373 JESSIE ROMAN L OF PT 8 CO PR UTILIZ [facility] AERSL GEN/NEB/I NHLR/[place] [address] JESSIE ROMAN WALL 8 [facility] FACILITAT [facility] E LNG FUNCJ 1 DEMO&/VINICIO L O2 CONC 1 E1390 [facility] PORT 8 HOME MED HOME MED 85%/>02 EQUIP. EQUIP. CONC AT [employer] [facility] FLW RATE ADMN SET A7005 YOUR YOUR W/SM VOL 8 PHARMACY PHARMACY [facility] NEBULIZR NON-DISPB L O2 CONC 1 E1390 [facility] PORT 8 HOME MED HOME MED 85%/>02 EQUIP. EQUIP. CONC AT [employer] [facility] FLW RATE ADMN SET A7003 YOUR YOUR SM VOL 8 PHARMACY PHARMACY NONFILTR [facility] PNEUMAT NEBULIZR DISPBL O2 CONC 1 E1390 [facility] 8 HOME MED HOME MED 85%/>02 EQUIP. EQUIP. CONC AT [employer] PRS FLW RATE Encounters Encounter Start End Date Code Location Performer Type Date OFFICE 06795 [facility] OUTPATIEN 7 7 PHYSICIAN T VISIT S GROUP 15 MINUTES [facility] 7 [facility] 77[facility] [place] [facility] 7 7 [facility] HIGH SEVERITY& THREAT [facility] [place] 7 7 [facility] - 7 7 [facility] 7 7 [facility] [address] INPATIENT HOSPITAL [facility] 7 7 [facility] EMERGENCY 44269 [facility] 7 7 DESIRE VISIT EMERGENCY HIGH PHYS SEVERITY& THREAT [facility] 7 7 [facility] [place] [facility] 7 7 [facility] 21996 [facility] 7 7 PHYSICIAN T VISIT S GROUP 15 MINUTES OFFICE 91712 [facility] 7 7 [facility] T [facility]ISIT INC 10 MINUTES [facility]OSP[facility] - 7 [facility] 06436 [facility] 7 MD SUNNY, T VISIT PSC 15 MINUTES OFFICE 06192 [facility] 7 7 PHYSICIAN T VISIT S GROUP 15 MINUTES HOSPITAL [place] [address] 7 [facility] OUTPATIEN [facility] [place] [facility] 7 [facility] T EMERGENCY [address] T VISIT HIGH/URGE NT SEVERITY EMERGENCY [address] T VISIT HIGH/URGE NT SEVERITY [facility]OSPITAL [place] [address] 7 [facility] T EMERGENCY 24595 [facility] 7 7 DESIRE VISIT EMERGENCY HIGH PHYS SEVERITY& THREAT FUNCJ OFFICE 73037 [facility] [place] OUTPATIEN 7 7 PHYSICIAN T VISIT S GROUP 15 MINUTES [facility]OSP[facility] - 7 7 [facility] OUTPATIEN INC T [facility] - 7 7 [facility] OUTPATIEN INC T [facility] - 7 7 [facility] OUTPATIEN INC T OFFICE 63785 [facility] OUTPATIEN 7 7 PHYSICIAN T VISIT S GROUP 25 MINUTES OFFICE 93573 [facility] 7 7 [facility] T VISIT INC 10 MINUTES [facility]OSP[facility] - 7 7 [facility] OUTPATIEN INC T OFFICE 94125 [facility] [place] OUTPATIEN 7 7 PHYSICIAN T VISIT S GROUP 25 MINUTES [facility] - 7 7 [facility] T OFFICE 72204 [facility] 7 7 MD SUNNY, T VISIT PSC 15 MINUT[facility] 7 [facility] T OFFICE 23251 [facility] 7 7 [facility] T VISIT INC 10 MINUTES OFFICE [id number] [facility] OUT[facility] 6 6 PHYSICIAN T VISIT S GROUP 15 MINUTES [facility] - 6 6 [facility] INC T OFFICE 51811 [facility] OUT[facility] 6 6 PHYSICIAN KAMILA T VISIT S GROUP 15 MINUTES [facility] - 6 6 [facility] 6 6 [facility] OUTPATI[facility] INC T OFFICE 35011 ALONDRA KOEHLER OUTPATIMOJGAN 6 6 MD T VISIT 10 MINUTES [facility] - 6 6 [facility]EN [facility] T OFFICE 29283 [facility] PHYSICIAN [facility]A T VISIT S GROUP 25 MINUTES OFFICE 44095 [facility] 6 6 PHYSICIAN KAM[facility]A T VISIT S GROUP 15 MINUTES [facility] 6 [facility] 75408 [facility] 6 6 [facility] T NEW 10 INC [facility] - 6 6 [facility] - 6 6 [facility] T OFFICE 91284 [facility] PHYSICIAN KAMILA T VISIT S GROUP 15 MINUTES OFFICE 42532 [facility] 6 6 Y MEDICAL MU T VISIT CLINIC 15 [facility] 6 6 [facility] 69105 [facility] 6 6 [facility] HIGH SEVERITY& THREAT [facility]E - 6 6 [facility] T OFFICE 51579 [facility] PHYSICIAN KAMILA T [facility]ISIT S GROUP 15 MINUTES [facility] - 6 6 [facility] 6 6 [facility] - [address] [facility] T OFFICE 28318 [facility] 6 6 Y T [facility]ISIT 5 [facility] - 6 6 [facility] CUR[facility] 6 6 [facility] - 6 6 [facility] 6 6 [facility] T OFFICE 61008 [facility] OUT[facility] 6 6 PHYSICIAN KAMILA T [facility]ISIT S GROUP 15 MINUTES [facility] 6 6 [facility] INPATIENT [facility] OFFICE 62009 [facility] OUTPATI[facility] 6 6 PHYSICIAN KAMILA T VISIT S GROUP 15 MINUTES [facility] 6 6 [facility] OFFICE 70512 [facility] 6 6 Y T [facility]ISIT 5 [facility] UNIVERSIT - 6 6 Y [facility] T OFFICE 18113 [facility] Y T [facility]ISIT 5 [facility] UN[facility] - 6 6 Y [facility] 6 6 [facility] OUTPATIEN [facility] T OFFICE 69146 [facility] 6 6 PHYSICIAN KAMILA T [facility]ISIT S GROUP 15 MINUTES [facility], 6 6 [facility] EMERGENCY 21228 DALILA SINGH DEPT 6 6 PHYSICIAN KAMILA VISIT S, PLL[facility] HIGH SEVERITY& THREAT FUN EMERGENCY 42185 [facility] DEPT 6 6 [facility] VISIT EMERGENCY HIGH PHYS SEVERITY& THREAT [facility] - 6 6 [facility] OUTPATI[facility] INC T OFFICE 18595 [facility] OUT[facility] 6 6 PHYSICIAN KAMILA T [facility]ISIT S GROUP 15 MINUTES EMERGENCY 93529 [facility] 6 6 DESIRE DEPARTMEN EMERGENCY T VISIT PHYS MODERATE SEVERITY [facility] GOMEZ - 6 6 [facility] INC T OFFICE 34919 [facility] OUTPATI[facility] 6 6 PHYSICIAN KAMILA T VISIT S GROUP 15 MINUTES HOSPITAL G[facility] - 6 6 [facility] T OFFICE 36174 [facility] 6 PHYSICIAN KAMILA T VISIT S GROUP 15 MINUTES HOSPITAL G[facility] - 6 6 [facility] OUTPATIEN [facility] T OFFICE 85883 [facility] 5 5 PHYSICIAN KAMILA T VISIT S GROUP 10 MINUTES OFFICE 09385 [facility]ERMAN MANZANARES OUTPATIEN 5 5 [facility]IS[facility] CLINIC 15 MINUTES HOSPITAL GOMEZ - 5 5 [facility] OUTPATIEN [facility] T OFFICE 93290 CARDIOVAS BRITANY OUTPATIEN 5 5 CULAR MAT T VISIT CONSULTAN 25 TS O MINUTES OFFICE 51162 [facility] 5 5 PHYSICIAN KAMILA T VISIT S GROUP 15 MINUTES OFFICE 09410 GOME[facility] HICKMAN OUTPATIEN 5 5 [facility] 15 MINUTES EMERGENCY 97565 [facility] DESIRE MAR VISIT EMERGENCY HIGH PHYS SEVERITY& THREAT [facility] OFF[facility] 21799 [facility] FRANCISCO OUTPATIEN 5 5 PHYSICIAN KAMILA T VISIT S GROUP 10 MINUTES OFFICE 08426 CARDIOVAS BRITANY OUTPATIEN 5 5 CULAR MAT T VISIT CONSULTAN 25 TS O MINUTES [facility] GOMEZ - 5 5 [facility]PATIEN [facility] - 5 5 [facility] OUTPATIEN [facility] T OFFICE 20950 CARDIOVAS BRITANY OUTPATIEN 5 5 CULAR MAT T VISIT CONSULTAN 40 TS O MINUTES [facility] GOMEZ [facility] 5 5 [facility] OUTPATIEN [facility] T OFFICE 91934 [facility] FRANCISCO OUTPATIEN 5 5 PHYSICIAN KAMILA T VISIT S GROUP 15 MINUTES HOSPITAL GOMEZ - 5 5 [facility] OUTPATIEN INC T OFFICE 56614 CARDIOVAS BRITANY OUTPATIEN 5 5 CULAR MAT T VISIT CONSULTAN 25 TS O MINUTES [facility] GOMEZ - 5 5 [facility] OUTPATIEN INC [facility]PITAL GOMEZ - 5 5 [facility] OUTPATIEN INC T OFFICE 71107 [facility] FRANCISCO OUTPATIEN 5 5 PHYSICIAN KAMILA T VISIT S GROUP 10 MINUTES OFFICE 27199 CARDIOVAS BRITANY OUTPATIEN 5 5 CULAR MAT T VISIT CONSULTAN 40 TS O MINUTES [facility] G[facility]Z - 5 5 [facility] T OFFICE 44091 [facility] FRANCISCO OUTPATIEN 5 5 PHYSICIAN KAMILA T VISIT S GROUP 15 MINUTES OFFICE 44646 CARDIOVAS BRITANY OUTPATIEN 5 5 CULAR MAT T VISIT CONSULTAN 25 TS O MINUTES [facility] GOMEZ - 5 5 [facility] T OFFICE 40596 [facility] FRANCISCO OUTPATIEN 5 5 PHYSICIAN KAMILA T VISIT S GROUP 15 MINUTES HOSPITAL MEADOWVIE - 5 5 W OUTPATIEN [facility] 44178 [facility] W VISIT REGIONAL HIGH MEDICAL SEVERITY& THREAT FUN OFFICE 58121 [facility] FRANCISCO OUTPATIEN 5 5 PHYSICIAN KAMILA T VISIT S GROUP 15 MINUTES [facility]OSPITAL [facility] - 5 5 HOSPITAL INPATIENT OFFICE 25965 [facility] CARISSA OUTPATIEN 5 5 [facility] 45 MEDICAL MINUTES G OFFICE 11642 [facility] FRANCISCO OUTPATIEN 5 5 PHYSICIAN KAMILA T VISIT S GROUP 15 MINUTES OFFICE 76275 CARDIOVAS BLACK JAZZMINE OUTPATIEN 5 5 CULAR T NEW 60 CONSULTAN MINUTES TS O [facility] MEADOWVIE [facility] 5 5 [facility] 00096 [facility] FRANCISCO OUTPATIEN 5 5 PHYSICIAN KAMILA T VISIT S GROUP 15 MINUTES HOSPITAL CURRIE - OTHER 5 5 CO [facility] GOME[facility] - 5 5 [facility] 75256 [facility] FRANCISCO OUTPATIEN 5 5 PHYSICIAN KAMILA T VISIT S GROUP 15 MINUTES OFFICE 41702 [facility] FRANCISCO OUTPATIEN 5 5 PHYSICIAN KAMILA T VISIT S GROUP 25 MINUTES HOSPITAL CURRIE - 5 5 [facility] T EMERGENCY 21409 [facility] 5 5 DESIRE J[facility] EMERGENCY T VISIT PHYS HIGH/URGE NT SEVERITY EMERGENCY 13992 CURRIE 5 5 CO [facility]PITAL T VISIT MODERATE SEVERITY OFFICE 70116 [facility] FRANCISCO OUTPATIEN 5 5 PHYSICIAN KAMILA T NEW 20 S GROUP MINUTES OFFICE 53278 [facility] VA[facility]HAV OUTPATIEN 5 5 CLINIC HEN T VISIT 15 MINUTES OFFICE 09586 UN[facility] OUTPATIEN 5 5 Y T VISIT HOSPITAL 10 MINUTES HOSPITAL UNIVERSIT - 5 5 [facility] OFF[facility] 11759 [place] [facility] OUTPATIEN 5 5 MEDICAL CECILIA T VISIT SERV 15 FOUNDATIO MINUTES N OFFICE 70042 [facility] VA[facility]HAV OUTPATIEN 4 4 CLINIC HEN T VISIT 15 MINUTES OFFICE 25465 [facility] OUTPATIEN 4 4 CLINIC HEN T VISIT 15 MINUTES HOSPITAL UNIVERSIT - 4 4 Y OUTPATI HOSPITAL T OFFICE 92061 UNIVERSIT OUTPATIEN 4 4 Y T VISIT HOSPITAL 10 MINUTES OFFICE 07573 [facility] SANTOSH OUTPATIEN 4 4 CECILIA CECILIA T VISIT 15 MINUTES OFFICE 18092 [facility] KIRK OUTPATIEN 4 4 CLINIC NHI T VISIT 25 MINUTES OFFICE 88703 [facility] VAIBHAV OUTPATIEN 4 4 CLINIC HEN T VISIT 15 MINUTES OFFICE 01650 [facility] OUTPATIEN 4 4 CLINIC T VISIT 25 MINUTES OFFICE 83330 [facility] HUTCHINS- OUTPATIEN 4 4 CLINIC SE YOSVANY T VISIT 25 MINUTES OFFICE 90591 [facility] SANTOSH OUTPATIEN 4 4 CECILIA CECILIA T VISIT 15 MINUTES HOSPITAL [facility], - 3 3 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 [facility] OFFICE 32615 [facility] SANTOSH OUTPATIEN 3 3 CECILIA CECILIA T VISIT 25 MINUTES OFFICE 55898 [facility]GO ARAGON OUTPATIEN 3 3 Apr T VISIT 25 MINUTES OFFICE 19513 TAMAREN NABEELN OUTPATIEN 3 3 Apr T VISIT 25 MINUTES OFFICE 07035 TAMAREN DEBORAHAREN OUTPATIEN 3 3 Apr T VISIT 25 MINUTES OFFICE 88340 [facility] S[facility]OSH OUTPATIEN 3 3 CECILIA CECILIA T VISIT 15 MINUTES HOSPITAL [facility] - 3 [facility] 51810 UNIVERSIT OUTPATIEN 3 3 Y T VISIT HOSPITAL 25 MINUTES OFFICE 25635 [facility]GO LEESN OUTPATIEN 2 2 Apr T VISIT 25 MINUTES OFFICE 57233 [facility] BERNABEO OUTPATIEN 2 2 CECILIA CECILIA T VISIT 15 MINUTES OFFICE 62647 [facility] LEESN OUTPATIEN 2 2 Apr T VISIT 25 MINUTES OFFICE 01005 [facility] LEESN OUTPATIEN 2 2 Apr T VISIT 15 MINUTES HOSPITAL [facility], - 2 2 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 UNIVERSIT [facility] 2 2 Y [facility] T OFFICE 37213 MARGO CABRERALYN OUTPATIEN 2 2 Apr T VISIT 15 MINUTES OFFICE 91081 MARGO LEESTrever OUTPATIEN 2 2 Apr T VISIT 25 MINUTES OFFICE 15237 [facility] BERNABEO OUTPATIEN 2 2 CECILIA CECILIA T VISIT 15 MINUTES HOSPITAL UNIVERSIT - 2 2 Y [facility] H[facility]PITAL [facility], - 2 2 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 [facility] OFF[facility] 61389 MARGO LEESTrever OUTPATIEN 2 2 Apr T VISIT 25 MINUTES HOSPITAL [facility] INC, - 2 2 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 [facility] 53091 MARGO LEESTrever OUTPATIEN 2 2 Apr T VISIT 15 MINUTES HOSPITAL UNIVERSIT - 2 2 Y [facility] T OFFICE 68587 JHONATHAN SNYDER OUTPATIEN 2 2 T VISIT 15 MINUTES HOSPITAL JESSIE - 2 2 CO [facility] T OFFICE 37056 NABEELTrever DEBORAHSTIVEN OUTPATIEN 2 2 Apr T VISIT 25 MINUTES OFFICE 83159 NABEELTrever DEBORAHSTIVEN OUTPATIEN 1 1 CECILIA CECILIA T VISIT 25 MINUTES HOSPITAL UNIVERSIT - 1 1 Y [facility] T OFFICE 17463 [facility] BERNABEO OUTPATIEN 1 1 CECILIA CECILIA T VISIT 15 MINUTES OFFICE 47868 ROCCO VALIENTE OUTPATIEN 1 1 GRE GRE T NEW 45 MINUTES OFFICE 39325 NABEELTrever NABEELTrever OUTPATIEN 1 1 CECILIA CECILIA T VISIT 15 MINUTES HOSPITAL JESSIE - 1 1 [facility] T OFFICE 61650 [facility] LEESTrever OUTPATIEN 1 1 CLINIC CECILIA T VISIT PSC 25 MINUTES HOSPITAL JESSIE - 1 1 [facility] HOSPITAL UNIVERSIT - 1 1 Y [facility] T OFFICE 30333 TIFFANIE FROST OUTPATIEN 1 1 MEDICAL CECILIA T VISIT SERV 15 FOUNDATIO MINUTES OFFICE 26860 ALLRAN JR ALLRAN JR CONSULTAT 1 1 CALEB CALEB ION NEW/ESTAB PATIENT 40 MIN OFFICE 28850 [facility] NABEELTrever OUTPATIEN 1 1 CLINIC CECILIA T VISIT PSC 15 MINUTES OFFICE 12220 [facility] NABEELTrever OUTPATIEN 1 1 CLINIC CECILIA T VISIT PSC 25 MINUTES OFFICE 13714 ONCOLOGY JAJA CHR OUTPATIEN 1 1 HEMATOLOG T VISIT Y CARE IN 25 MINUTES HOSPITAL MEADOWVIE - 1 1 W [facility] T MEDICAL OFFICE 77817 TIFFANIE BRUMFIELD OUTPATIEN 1 1 MEDICAL T VISIT SERV 25 FOUNDATIO MINUTES HOSPITAL MEADOWVIE - 1 1 W [facility] MEDICAL OFFICE 94029 ONCOLOGY SIGMUND OUTPATIEN 1 1 HEMATOLOG ADOLFO T VISIT Y CARE IN 15 MINUTES OFFICE 69192 [facility] ARAGON OUTPATIEN 1 1 CLINIC CECILIA T VISIT PSC 15 MINUTES OFFICE 10879 [facility] ARAGON OUTPATIEN 1 1 CLINIC CECILIA T VISIT PSC 25 MINUTES HOSPITAL JESSIE - 1 1 [facility] T OFFICE 56361 CH[facility] ARAGON OUTPATIEN 1 1 CLINIC CECILIA T VISIT PSC 15 MINUTES OFFICE 52091 TIFFANIE FROST OUTPATIEN 1 1 MEDICAL CECILIA T VISIT SERV 15 [facility] UNIVERSIT - 1 1 Y [facility] T OFFICE 92052 ONCOLOGY [facility]ERLY [facility] 1 1 HEMATOLOG T VISIT Y CARE IN 15 [facility] MEADOWVIE - 1 1 W [facility] CURRIE - 1 1 [facility] T OFFICE 04400 RINALDINI RINALDINI OUTPATIEN 1 1 ETHAN ETHAN T VISIT 15 MINUTES OFFICE 65611 TIFFANIE [facility]OSH [facility] 1 1 MEDICAL CECILIA T VISIT SERV 15 [facility] CURRIE - 1 1 [facility] MEADOWVIE - 0 0 W [facility] MEDICAL OFFICE 44743 RINALDINI RINALDINI OUTPATIEN 0 0 ETHAN ETHAN T VISIT 15 MINUTES HOSPITAL CURRIE - 0 0 [facility] CURRIE - 0 0 [facility] MEADOWVIE - 0 0 W [facility] MEDICAL OFFICE 63994 TIFF[facility]IE [facility] 0 0 MEDICAL PRA T VISIT SERV 10 [facility] CURRIE - 0 0 CO [facility] T OFFICE 21614 MAILE ESTRADAINI OUTPATIEN 0 0 ETHAN ETHAN T VISIT 15 MINUTES EMERGENCY 06617 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 0 0 CO Y VISIT HOSPITAL CORPORATI HIGH ON OF AM SEVERITY& [facility] - 0 0 CO [facility] T OFFICE 16915 [facility]INI [facility] 0 ETHAN ETHAN T VISIT 25 MINUTES HOSPITAL CURRIE - 0 0 CO [facility] T [facility] CURRIE - 0 0 CO [facility] MEADOWVIE - 0 0 W [facility] T MEDICAL OFFICE 22496 MAILE ESTRADAINI OUTPATIEN 0 0 ETHAN ETHAN T VISIT 25 MINUTES HOSPITAL JESSIE - 0 0 CO [facility] T EMERGENCY 38363 JESSIE 0 0 CO [facility] HOSPITAL T VISIT LOW/MODER SEVERITY EMERGENCY 69456 MAILE ESTRADAINI 0 0 ETHAN ETHAN DEPARTMEN T VISIT MODERATE SEVERITY HOSPITAL UNIVERSIT - 0 0 Y [facility] T OFFICE 33941 [place] [facility]KE [facility] 0 0 MEDICAL CECILIA T VISIT SERV 15 FOUNDATIO MINUTES [facility] UNIVERSIT [facility] 0 0 Y [facility] T [facility] CURRIE - 0 0 CO [facility] T HOME [facility] HEALTH, 0 0 HOME [facility] T OFF[facility] 36106 JESSIE OUTPATIEN 0 0 CO T VISIT 5 HOSPITAL MINUTES [facility] JESSIE - 0 0 CO [facility] T OFFICE 11406 JESSIE OUTPATIEN 0 0 CO T VISIT 5 [facility] JESSIE - 0 0 CO [facility] JESSIE - 0 0 CO [facility] T OFFICE 90341 JESSIE OUTPATIEN 0 0 CO T VISIT 5 HOSPITAL [facility] EMERGENCY 59601 NATALIEINI RINALDINI 0 0 , ETHAN GAXIOLA M [facility] T VISIT HIGH/URGE NT SEVERITY EMERGENCY 35196 JESSIE 0 0 CO [facility] T VISIT LIMITED/M INOR [facility] HOSPITAL JESSIE - 0 0 CO [facility] OFFICE 78848 NATALIEINI NATALIEINI OUTPATIEN 0 0 , ETHAN GAXIOLA M T VISIT 10 MINUTES HOSPITAL MEADOWVIE - 0 0 W [facility] OFFICE 64955 ONCOLOGY JAJA, OUTLAKE [facility] 0 0 HEMATOLOG BRITTANY Virgen T VISIT Y CARE 15 INC [facility] H[facility]PITAL CURRIE - 0 0 CO [facility] HOME [facility], 0 0 HOME [facility] JESSIE - 0 0 CO INPATIENT HOSPITAL EMERGENCY 93143 JESSIE 0 0 CO [facility] T VISIT LOW/MODER SEVERITY HOSPITAL JESSIE - 0 0 CO [facility] EMERGENCY 13613 JESSIE RINALDINI 0 0 CO , MINOR [facility] T VISIT LIMITED/M INOR PROB [facility] JESSIE - 0 0 [facility] MEADOWVIE - 0 0 W [facility] OFFICE 16569 ONCOLOGY JAJA, OUTPATIEN 0 0 HEMATOLOG BRITTANY Virgen T VISIT Y CARE 25 INC MINUTES HOME [facility], 0 0 HOME [facility] T OFFICE 01067 RINALDINI RINALDINI OUTPATIEN 0 0 , MINOR , MINOR T VISIT 25 MINUTES OFFICE 65291 RINALDINI RINALDINI OUTPATIEN 0 0 , MINOR , MINOR T VISIT 15 MINUTES OFFICE 00041 [place] [facility] OUTPATIEN 0 0 MEDICAL , HANNAH T VISIT SERV 15 FOUNDATIO MINUTES OFFICE 16264 RINALDINI RINALDINI OUTPATIEN 0 0 , MINOR , MINOR T VISIT 15 MINUTES HOSPITAL [facility] - 0 0 [facility] 77176 [place] INA CONSULTAT 0 0 MEDICAL PRA ION SERV NEW/ESTAB FOUNDATIO PATIENT 30 MIN HOSPITAL UNIVERSIT - 0 0 Y [facility] T OFFICE 54221 [place] [facility] OUTPATIEN 0 0 MEDICAL CECILIA T VISIT SERV 25 FOUNDATIO MINUTES HOSPITAL UNIVERSIT - 0 0 Y [facility] T OFFICE 72970 [place] [facility] CONSULTAT 0 0 MEDICAL CECILIA ION SERV NEW/ESTAB FOUNDATIO PATIENT 80 MIN HOSPITAL JESSIE - 8 8 CO [facility] T [facility] 46938 [facility] T VISIT 5 HOSPITAL MINUTES [facility] 94231 [facility] CO T VISIT 5 HOSPITAL MINUTES HOSPITAL JESSIE - 8 8 CO [facility] T [facility] JESSIE - 8 8 CO [facility] T OFFICE 56643 JESSIE [facility] 8 8 CO T VISIT 5 HOSPITAL MINUTES OFFICE 87694 CHENCHO CABRERALYTrever [facility] 8 8 CLINIC [facility] 20 PSC MINUTES EMERGENCY 44899 JESSIE 8 8 CO [facility] T VISIT LIMITED/M INOR [facility] JESSIE - 8 8 CO [facility] HOSPITAL JESSIE - 8 8 [facility] T OFFICE 48662 MAILE ESTRADAINI [facility] 8 8 , ETHAN GAXIOLA T VISIT 5 MINUTES OFFICE 99002 MAILE ESTRADAINI [facility] 8 8 , ETHAN GAXIOLA T VISIT 5 MINUTES HOSPITAL JESSIE - 8 8 [facility] T OFFICE 77730 MAILE ESTRADAINI [facility] 8 8 , ETHAN GAXIOLA T VISIT 5 MINUTES OFFICE 28392 MAILE ESTRADAINI [facility] 8 8 , ETHAN GAXIOLA T VISIT 5 MINUTES
--- OUTSIDE RECORDS SUMMARY | 2017-02-06 00:20 | External Medical Summary Rpt | CCD ---
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 OR HOSPITAL LUMP IN HEAD AND NECK 66428 PAINFUL 10-19-2007 [facility] RESPIRATION H[facility]PITAL 2811 OTHER 08-11-2007 [facility], VITAMIN B12 MINOR DEFICIENCY ANEMIA 4011 ESSENTIAL 08-11-2007 [facility] N, BENIGN 4264 RIGHT 08-04-2007 [facility] BUNDLE HOSPITAL BRANCH BLOCK V570 CARE 08-04-2007 [facility] INVOLVING HOSPITAL BREATHING EXERCISES Medications Na ND [...] IN #2 VEGA LE R SP 00 05 06 30 [...] MA OU CY S SO #2 LN UT 00 01 02 12 6 00 [...] MG MA CY TA BL #2 ET AL 13 01 02 14 7 00 TO [...] 6- 6- 00 IS 81 RE ve UT 02 20 20 LE N ED 20 11 [address] NE SO UG T LO NE CO 4 MP AN MG Y DO SE PK UT 50 10 10 0 24 6 [...] LE N RA 20 11 [address] JAMIL DE UG T 10 [...] LE N RA 20 11 [address] JAMIL DE UG T 10 [...] LE N RA 20 11 11 JA AL 5 NE DE UG T 10 CO [...] BR 90 10 10 FA ET 5 AL T LY T DR UG PI 00 08 11 5 90 30 SO 34 CO Ac LO 11 -0 -2 .0 PE 89 ME ti CA 55 6- 4- 00 RS 36 R ve RP 92 20 20 BR IN 20 10 10 FA ET E 1 AL T HC LY T L 5 DR MG UG TA BL ET NE 00 09 10 1 30 30 SO 35 No Ac XI 18 -2 -3 .0 PE 32 t ti UM 65 9- 0- 00 RS 71 Av ve [address] 03 10 10 FA la 1 AL bl [address] UG CA PS UL E CE 68 10 10 0 28 7 SO 35 No Ac PH 18 -2 -2 .0 PE 52 t ti AL 00 1 RS 38 Av ve EX 12 20 20 ai IN 20 10 10 FA la 2 AL bl 50 LY e [address] UG CA PS UL E 00 08 10 5 12 30 SO 34 CO Ac 59 -0 -1 0. PE 89 ME ti 12 6- 4- 00 RS 35 R ve 22 20 20 0 BR 90 10 10 FA ET 5 AL T LY T DR UG PI 00 08 10 5 90 30 SO 34 CO Ac LO 11 -0 -1 .0 PE 89 ME ti CA 55 6- 4- 00 RS 36 R ve RP 92 20 20 BR IN 20 10 10 FA ET E 1 AL T HC LY T L 5 DR MG UG TA BL ET [place] 00 09 09 0 24 5 SO [address] 60 -2 -2 0. PE 32 t ti AT 31 RS 70 Av ve IN 48 20 20 0 ai 15 10 10 FA la 10 8 AL bl 0, LY e [address] UN UG IT /M L GARCIA SP NE 00 09 09 1 30 30 SO 35 No Ac XI 18 -2 -2 .0 PE 32 t ti UM 65 RS 71 Av ve [address] 03 10 10 FA la 1 AL bl [address] UG CA PS UL E 00 09 09 0 23 26 SO 35 No Ac 12 -2 -2 65 PE 25 t ti 10 1- 1- .0 RS 91 Av ve 65 20 20 00 ai 51 10 10 FA la 6 AL bl LY e DR UG GARCIA 00 09 09 0 30 15 SO 35 No Ac LF 60 -2 -2 .0 PE 25 t ti AM 35 RS 92 Av ve ET 78 20 20 ai HO 12 10 10 FA la XA 8 AL bl ZO LY e LE -T DR MP UG DS TA BL ET LI 50 09 09 0 10 5 SO 35 No Ac DO 38 -2 -2 0. PE 25 t ti CA 30 1 RS 93 Av ve IN 77 20 20 0 ai E 50 10 10 FA la 2% 4 AL bl LY e SC DR OU UG S SO LN 00 08 09 5 12 30 SO 34 CO Ac 59 -0 -1 0. PE 89 ME ti 12 6 3 00 RS 35 R ve 22 20 20 0 BR 90 10 10 FA ET 5 AL T LY T DR UG PI 00 08 09 5 90 30 SO 34 CO Ac LO 11 -0 -1 .0 PE 89 ME ti CA 55 6- 3- 00 RS 36 R ve RP 92 20 20 BR IN 20 10 10 FA ET E 1 AL T HC LY T L 5 DR MG UG TA BL ET 00 08 08 0 30 3 SO 34 No Ac 12 -1 -1 0. PE 96 t ti 10 7- 7- 00 RS 80 Av ve 65 20 20 0 ai 51 10 10 FA la 6 AL bl LY e DR UG 00 08 08 5 12 30 SO 34 CO Ac 59 -0 -0 0. PE 89 ME ti 12 6- 6- 00 RS 35 R ve 22 20 20 0 BR 90 10 10 FA ET 5 AL T LY T DR UG PI 00 08 08 5 90 30 SO 34 CO Ac LO 11 -0 -0 .0 PE 89 ME ti CA 55 6- 6- 00 RS 36 R ve RP 92 20 20 BR IN 20 10 10 FA ET E 1 AL T HC LY T L 5 DR MG UG TA BL ET PE 00 07 08 1 59 1 SO 34 No Ac RM 47 -1 -0 .0 PE 73 t ti ET 25 9- 5- 00 RS 87 Av ve HR 24 20 20 ai IN 26 10 10 FA la 7 AL bl 1% LY e LO DR TI UG ON FL 00 08 08 0 5. 5 SO 34 No Ac UC 17 -0 -0 00 PE 87 t ti ON 25 5- 5- 0 RS 61 Av ve AZ 41 20 20 ai OL 21 10 10 FA la E 1 AL bl 15 LY e [address] UG TA BL ET UT 60 07 08 5 50 16 [...] 12 10 10 FA la 50 0 AL bl 0- LY e [address] [...] IN 26 10 10 FA la 7 AL bl 1% LY e LO DR TI [...] # MG 10 15 TA 69 B UT 00 06 06 1 30 30 [...] MA V CY # 10 15 69 UT 00 [...] 12 08 08 FA la XA 8 AL bl ZO LY e LE -T MP UG DS TA BL ET LI 00 10 08 01 30 30 SO 26 No Ac PI 07 -2 -2 .0 PE 59 t ti TO 10 9- 8- 00 RS 29 Av ve R 15 20 20 ai 40 72 07 08 FA la 3 AL bl MG LY e TA DR BL UG ET UT 37 07 08 01 56 28 SO 28 No Ac IL 00 -0 -2 .0 PE 78 t ti OS 00 7- 8- 00 RS 89 Av ve EC 45 20 20 ai 50 08 08 FA la OT 4 AL bl C LY e [address] MERYL MG TA BL ET 15 08 08 00 20 10 SO 29 No Ac 68 -2 -2 .0 PE 14 t ti 60 2- 8- 00 RS 39 Av ve 10 20 20 ai 20 08 08 FA la 5 AL bl LY e DR SHETH FL 60 08 08 00 16 7 SO 29 No Ac UT 50 -1 -2 .0 PE 08 t ti IC 50 4- 8- 00 RS 07 Av ve 82 20 20 ai ON 90 08 08 FA la E 1 AL bl UT LY e OP 50 UG MC G [...] ai 83 08 08 FA la 2 AL bl LY e UG 00 08 08 00 20 4 SO 29 No Ac 59 -1 -2 .0 PE 06 t ti 10 3- 8- 00 RS 85 Av ve 34 20 20 ai 90 08 08 FA la 5 AL bl LY e UG 00 08 08 00 80 10 SO 29 No Ac 78 -1 -2 .0 PE 06 t ti 12 3- 8- 00 RS 84 Av ve 11 20 20 ai 20 08 08 FA la 1 AL bl LY e UG 00 08 08 00 21 6 SO 29 No Ac 55 -1 -2 .0 PE 08 t ti 50 4- 8- 00 RS 08 Av ve 30 20 20 ai 13 08 08 FA la 8 AL bl LY e DR UG PE 45 07 08 00 60 1 SO 28 No Ac RM 80 -1 -0 .0 PE 86 t ti ET 20 6- 1- 00 RS 97 Av ve HR 26 20 20 ai IN 93 08 08 FA la 7 AL bl 5% LY e CR DR EA [...] 40 72 07 08 FA la 3 AL bl MG LY e TA DR BL UG ET UT 37 07 07 00 56 28 SO 28 No Ac IL 00 -0 -1 .0 PE 78 t ti OS 00 7- 7- 00 RS 89 Av ve EC 45 20 20 ai 50 08 08 FA la OT 4 AL bl C LY e [address] UG MG TA BL ET TH 50 04 07 03 60 30 SO 28 No Ac EO 11 -0 -1 .0 PE 10 t ti PH 10 8- 7- 00 RS 88 Av ve YL 48 20 20 ai LI 20 08 08 FA la NE 2 AL bl LY e ER DR 20 UG 0 MG TA BL ET AM 00 06 07 00 30 30 SO 28 No Ac IT 78 -2 -0 .0 PE 69 t ti RI 11 3- 3- 00 RS 84 Av ve PT 48 20 20 ai YL 71 08 08 FA la IN 0 AL bl E LY e HC L DR 25 UG MG TA B TR 65 06 07 00 90 30 SO 28 No Ac AM 16 -2 -0 .0 PE 69 t ti AD 20 3- 3- 00 RS 86 Av ve OL 62 20 20 ai 75 08 08 FA la HC 0 AL bl L LY e 50 DR MG [...] 40 72 08 08 FA la 3 AL bl MG LY e TA DR BL UG ET UT 37 03 06 02 56 28 SO 28 No Ac IL 00 -2 -1 .0 PE 02 t ti OS 00 7- 2- 00 RS 17 Av ve EC 35 20 20 ai 90 08 08 FA la OT 7 AL bl C LY e [address] UG MG TA BL ET TH 50 04 06 02 60 30 SO 28 No Ac EO 11 -0 -1 .0 PE 10 t ti PH 10 8- 2- 00 RS 88 Av ve YL 48 20 20 ai LI 20 08 08 FA la NE 2 AL bl LY e ER DR 20 UG 0 MG TA BL ET 66 01 06 02 30 30 YO 15 No Ac 79 -2 -0 0. UR 36 t ti 40 8- 5- 00 1 Av ve 00 20 20 0 PH ai 26 08 08 AR la 0 MA bl CY e UT 37 03 05 01 56 28 SO 28 No Ac IL 00 -2 -2 .0 PE 02 t ti OS 00 7- 2- 00 RS 17 Av ve EC 45 20 20 ai 50 08 08 FA la OT 3 AL bl C LY e [address] UG MG TA BL ET LI 00 02 05 02 30 30 SO 27 No Ac PI 07 -2 -2 .0 PE 67 t ti TO 10 1- 2- 00 RS 83 Av ve R 15 20 20 ai 40 72 08 08 FA la 3 AL bl MG LY e TA DR BL UG ET TH 50 04 05 01 60 30 SO 28 No Ac EO 11 -0 -2 .0 PE 10 t ti PH 10 8- 2- 00 RS 88 Av ve YL 48 20 20 ai LI 20 08 08 FA la NE 2 AL bl LY e ER DR 20 UG 0 MG TA BL ET BE 68 04 04 00 20 20 SO 28 No Ac NZ 38 -0 -2 .0 PE 10 t ti ON 20 8- 4- 00 RS 89 Av ve AT 24 20 20 ai AT 80 08 08 FA la E 1 AL bl 20 LY e [address] UG CA PS UL E 63 04 04 00 12 30 SO 28 No Ac 82 -0 -2 0. PE 10 t ti 40 8- 4- 00 RS 87 Av ve 00 20 20 0 ai 81 08 08 FA la 0 AL bl LY e DR UG AZ 00 04 04 00 6. 5 SO 28 No Ac IT 78 -0 -2 00 PE 10 t ti HR 11 8- 4- 0 RS 86 Av ve OM 49 20 20 ai YC 66 08 08 FA la IN 8 AL bl LY e [address] MG UG TA BL ET 00 04 04 00 21 6 SO 28 No Ac 55 -0 -2 .0 PE 10 t ti 50 8- 4- 00 RS 85 Av ve 30 20 20 ai 13 08 08 FA la 8 AL bl LY e DR UG TH 50 04 04 00 60 30 SO 28 No Ac EO 11 -0 -2 .0 PE 10 t ti PH 10 8- 4- 00 RS 88 Av ve YL 48 20 20 ai LI 20 08 08 FA la NE 2 AL bl LY e ER DR 20 UG 0 MG TA BL ET UT 37 03 04 00 56 28 SO 28 No Ac IL 00 -2 -1 .0 PE 02 t ti OS 00 7- 0- 00 RS 17 Av ve EC 45 20 20 ai 50 08 08 FA la OT 3 AL bl C LY e [address] UG MG TA BL ET LI 00 02 04 01 30 30 SO 27 No Ac PI 07 -2 -1 .0 PE 67 t ti TO 10 1- 0- 00 RS 83 Av ve R 15 20 20 ai 40 72 08 08 FA la 3 AL bl MG LY e TA DR BL [...] 40 72 08 08 FA la 3 AL bl MG LY e TA DR BL [...] 50 08 08 FA la OT 3 AL bl C LY e [address] UG MG TA BL ET LI 00 10 03 02 30 30 SO 26 No Ac PI 07 -2 -2 .0 PE 59 t ti TO 10 9- 5- 00 RS 30 Av ve R 15 20 20 ai 40 72 07 08 FA la 3 AL bl MG LY e TA DR BL UG ET UT 37 01 03 00 56 28 SO 27 No Ac IL 00 -1 -2 .0 PE 26 t ti OS 00 4- 5- 00 RS 51 Av ve EC 45 20 20 ai 50 08 08 FA la OT 3 AL bl C LY e [address] [...] Comment O2 CONC 1 E1390 [facility] 7 HOME HOME 85%/>02 MEDICAL MEDICAL CONC AT EQUIPME [facility] FLW RATE DRUG TEST G0481 [facility] DEFINITV [address] ID INC INC METH P DAY 8-14 DRUG CL DRUG TEST 96275 [facility] PRSMV 7 MEM H[facility] MEM HOSP QUAL DIR INC INC OPTICAL OBS PER DAY O2 CONC 1 E1390 [facility] 7 HOME HOME 85%/>02 [facility] FLW [facility]ATE THER 04289 [facility] PROPH/DX [address] [place] [address] SEQL IV PUSH SBST/DRUG FAC OBSERVATI 25846 [facility] ON [facility]ARE 7 W N DISCHARGE [facility] [id number] [facility] OBSERVATI [address] [place] [address] HOSPITAL SERVICE PER HOUR INJECTION J0692 [facility] CEFEPIME [address] [place] [address] HYDROCHLO RIDE 500 MG INJECTION J1644 [facility] HEPARIN [address] [place] [address] PER 1000 UNITS INJ J2930 [facility] METHYLPRD [address] [place] [address] SODIUM SUCCNAT TO 125 MG INFUSION J7030 [facility] NORMAL [address] [place] [address] SALINE [facility] SOLUTION 1000 CC BASIC 36252 [facility] METABOLIC [address] [place] [address] CALCIUM TOTAL COLLECTIO 90613 [facility] N VENOUS [address] [place] [address] VENIPUNCT URE BLOOD [address] AUTO&AUTO DIFRNTL WBC THERAPEUT 31093 [facility] IC [address] [place] [address] TIC/DX INJECTION SUBQ/IM THERAPEUT [address] IV PUSH EACH NEW DRUG THER [address]97[address] [facility] PROPH/DX [address] [place] [address] NJX [facility] SEQL IV PUSH SBST/DRUG FAC THERAPEUT [address] TIC/DX INJECTION SUBQ/[place] [address] [facility] INFUSION [address] [place] [address] PROPHYLAX IS/[place] H[place] [address] [facility] INFUSION [address] [place] [address] THERAPY/P [facility] ROPHYLAXI S /DX 1ST TO 1 HR ECG 23305 [facility] ROUTINE [address] [place] [address] ECG [facility] W/LEAST 12 LDS TRCG ONLY W/O I&[place] [address] [facility] TROPONIN [address] [place] [address] [place] [address] [facility] MAGNESIUM [address] [place] [address] BLOOD 58214 [facility] COUNT [address] [place] [address] AUTO&AUTO DIFRNTL WBC CUL BACT 80971 [facility] XCPT [address] [place] [address] URINE [facility] BLOOD/STO OL AEROBIC ISOL SMR PRIM 87859 [facility] SRC [address] [place] [address] GRAM/GIEM [facility] SA STAIN BCT FUNGI/ROZINA L COLLECTIO 90544 [facility] N VENOUS [address] [place] [address] VENIPUNCT URE BASIC 88835 [facility] METABOLIC [address] [place] [address] CALCIUM TOTAL INJ J2930 [facility] METHYLPRD [address] [place] [address] SODIUM SUCCNAT TO 125 MG INJECTION J1644 [facility] HEPARIN [address] [place] [address] HOSPITAL PER 1000 UNITS INJECTION J0692 [facility] CEFEPIME [address] [place] [address] HYDROCHLO RIDE 500 MG INFUSION J7030 [facility] NORMAL [address] [place] [address] SOLUTION 1000 CC INITIAL 15488 [facility] OBSERVATI 7 W N ON HOSPITALI CARE/DAY ST 50 MINUTES TOBACCO 98144 [facility] USE [address] [place] [address] INTENSIVE >10 MINUTES INJECTION J0692 [facility] CEFEPIME [address] [place] [address] HYDROCHLO RIDE 500 MG INJECTION J1956 [address] RENETTA 250 MG INJECTION J1644 [facility] HEPARIN [address] [place] [address] HOSPITAL PER 1000 UNITS INJ J2930 [facility] METHYLPRD [address] [place] [address] SODIUM SUCCNAT TO 125 MG INFUSION J7030 [facility] NORMAL [address] [place] [address] SOLUTION 1000 CC COMPREHEN 71674 [facility] SIVE [address] [place] [address] PANEL URNLS DIP [address] STICK/TAB [facility] LET REAGENT AUTO MICROSCOP Y CORTISOL 34987 [facility] TOTAL [address] [place] [address] COLLECTIO 59925 [facility] N VENOUS [address] [place] [address] VENIPUNCT URE RADIOLOGI 62996 [facility] C EXAM [address] [place] [address] VIEWS FRONTAL&L ATERAL CULTURE 01708 [facility] BACTERIAL [address] [place] [address] QUANTTATI VE COLONY COUNT URINE CULTURE 03411 [facility] BACTERIAL [address] [place] [address] BLOOD [facility] AEROBIC W/ID ISOLATES BLOOD 42601 [facility] COUNT [address] [place] [address] COMPLETE [facility] AUTO&[place] [address] [facility] OSMOLALIT [address] [place] [address] Y URINE [facility] BLOOD 55479 [facility] GASES ANY [address] [place] [address] COMBINATI ON PH PCO2 PO2 [place] [address] [facility] LACTATE [address] [place] [address] [place] [address] [facility] URINE [address] [place] [address] [place] [address] [facility] TROPONIN [address] [place] [address] [place] ECG [address]107 [facility] ROUTINE [address] [place] [address] W/LEAST 12 LDS TRCG ONLY W/O I&R THERAPEUT 13150 [facility] IC [address] [place] [address] [facility] TIC/DX INJECTION SUBQ/IM ECG 39052 [facility] ROUTINE 7 DESIRE ECG EMERGENCY W/LEAST PHYS 12 LDS I&R ONLY PRESSURIZ 91036 [facility] ED/NONPRE [address] [place] [address] INHALATIO N TREATMENT DRUG TEST 61049 [facility] PRSMV 7 MEM H[facility] MEM HOSP QUAL DIR INC INC OPTICAL OBS PER DAY O2 CONC 1 E1390 [facility] 7 HOME HOME 85%/>02 MEDICAL MEDICAL CONC AT EQUIPME EQUIPME PRS FLW RATE DRUG TEST 71312 [facility] DYER PRSMV 7 [facility] HOSP QUAL DIR INC INC OPTICAL [place]BS [place] PET 28918 [facility] [address] CLINIC ATTENUATI ON WHOLE BODY FLUORODEO A9552 [facility] XYGLUCOSE 7 Y MEDICAL F-18 FDG CLINIC DX UP TO 45 MCI SBSQ 17010 [facility] 7 NE HEALTH CARE/DAY MEDICAL 35 G MINUTES INITIAL 58391 [facility] 7 NE HEALTH CONSULT MEDICAL NEW/ESTAB G PT 80 MIN RADIOLOGI 49855 [facility] RADIOLOGY LD IV CHEST 2 VIEWS FRONTAL&[place] [address] [facility] [place] [facility] CRV [facility] CRTD ART MEDICAL EMBOLIC G PROTECJ ECG 05216 [facility] ECG MEDICAL W/LEAST G 12 LDS I&R ONLY DUPLEX 19683 [facility] SCAN 7 EIDER EXTRACRAN RADIOLOGY IAL ART ASSOCIAT COMPL BI STUDY INITIAL 24526 [facility] YUE INPATIENT 7 [facility] CONSULT MEDICAL NEW/ESTAB G PT 80 MIN GROUND A0425 [facility] [address] PER AMBULANCE AMBULANCE STATUTE MILE AMB A0427 [facility] SERVICE [address] [place] [address] ALS AMBULANCE AMBULANCE EMERGENCY TRANSPORT LEVEL 1 ECG 02147 [facility] ROUTINE 7 DESIRE ECG EMERGENCY W/LEAST PHYS 12 LDS I&[place] [address] [facility] HEAD/BRAI 7 EIDER N W/O RADIOLOGY CONTRAST ASSOCIAT MATERIAL RADIOLOGI 04359 [facility] C EXAM 7 EIDER CHEST 2 RADIOLOGY VIEWS ASSOCIAT FRONTAL&[place] [address] [facility] ABDOMEN & 7 EIDER PELVIS RADIOLOGY W/O ASSOCIAT CONTRAST MATERIAL O2 CONC 1 E1390 [facility] [place] 7 HOME HOME 85%/>02 MEDICAL MEDICAL CONC AT EQUIPME EQUIPME [facility] FLW RATE LOCM Q9967 [facility] [phone] [place] [address] MG/ HOSPITAL HOSPITAL IODINE CONCENTRA TION PER ML CT SOFT 05625 [facility] TISSUE [address] [place] [address] [facility] W/[place] [address] [facility] ABDOMEN & [address] [place] [address] [facility] W/CONTRAS T MATERIAL [place] THORAX [address] W[facility] T MATERIAL LOCM Q9967 [facility] [phone] [place] [address] MG/[facility] IODINE CONCENTRA TION PER ML ADMN SET A7005 NAOMIE AKBAR W/SM VOL 7 HOME HOME NONFILTR MEDICAL MEDICAL NEBULIZR EQUIPME EQUIPME NON-DISPB L DRUG TEST G0481 GOME[facility] DYER DEFINITV [address] ID INC INC METH P DAY 8-14 DRUG CL DRUG TEST 67691 GOMEZ DYER PRSMV 7 [facility] QUAL DIR INC INC OPTICAL OBS PER DAY COMPREHEN 91378 [facility] SIVE 7 DARRYL DARRYL METABOLIC [facility] PANEL LACTATE 84406 [facility] DEHYDROGE 7 DARRYL DARRYL NASE LDH [facility] BLOOD 72291 [facility] COUNT 7 DARRYL DARRYL COMPLETE [facility] AUTO&AUTO DIFRNTL WBC O2 CONC 1 E1390 NAOMIE NAOMIE [facility] 7 HOME HOME 85%/>02 MEDICAL MEDICAL CONC AT EQUIPME EQUIPME PRSC FLW RATE DRUG TEST G0480 GOMEZ DYER DEFINITV [address] ID INC INC METH P DAY 1-7 DRUG CL DRUG TEST G0481 GOMEZ DYER DEFINITV [address] ID INC INC METH P DAY 8-14 DRUG CL DRUG TEST 62645 GOMEZ DYER PRSMV 7 [facility] QUAL DIR INC INC OPTICAL OBS PER DAY RADEX 46564 [facility] HAND [address] [place] [address] HOSPITAL VIEWS REPAIR 86526 [facility] INTERMEDI [address] [place] [address] N/H/F/XTR NL GENT 2.6-7.5 CM TDAP 77076 [facility] VACCINE [address] [place] [address] YRS/> [facility] DEBRIDEME [address] [facility] NT OPEN 7 DESIRE WOUND 20 EMERGENCY SQ CM/< PHYS O2 CONC 1 E1390 NAOMIE CARRION [facility] HOME HOME 85%/>02 MEDICAL MEDICAL CONC AT EQUIPME EQUIPME PRS FLW RATE INFUSION J7030 [address] SOLUTION 1000 CC INJECTION [id number] ON HCL PER 1 MG DRUG TEST G0480 [facility] DEFINITV [address] [place] [address] DR ID [facility] HOSPITAL METH P DAY 1-7 DRUG CL IAADIADOO [id number] [facility] CULTURE 23992 [facility] BACTERIAL [address] [place] [address] BLOOD [facility] AEROBIC W/[place] [address] [facility] LIPASE [address] [place] [address] [place] [address] [facility] LACTATE [address] [place] [address] [place] [address] [facility] MAGNESIUM [address] [place] [address] [place] [address] [facility] FREE [address] [place] [address] [place] [address] [facility] TROPONIN [address] [place] [address] [place] ECG 57532 [facility] ROUTINE DESIRE ECG EMERGENCY W/LEAST PHYS 12 LDS I&R ONLY THER 09640 [facility] PROPH/DX [address] [place] [address] NJX [facility] HOSPITAL PUSH SINGLE/1S T SBST/[place] [address] [facility] INFUSION [address] [place] [address] HYDRATION [facility] EACH ADDITIONA L HOUR ECG 29191 [facility] ROUTINE [address] [place] [address] W/LEAST 12 LDS TRCG ONLY W/O I&R COLLECTIO 97579 [facility] N VENOUS [address] [place] [address] [place] [address] [facility] HEAD/BRAI [address] [place] [address] W/O [facility] H[facility]PITAL CONTRAST MATERIAL RADIOLOGI 13874 [facility] C EXAM [address] [place] [address] CHEST 2 [facility] VIEWS FRONTAL&L ATERAL DRUG TEST 58538 [facility] PRSMV [address] [place] [address] [facility] CHEMISTRY ANALYZERS URNLS DIP [address] STICK/TAB [facility] H[facility] LET REAGENT AUTO MICROSCOP Y GENERAL 57236 [facility] HEALTH [address] [place] [address] DRUG 25796 GOMEZ DYER SCREENING 7 [facility] OPIOIDS INC INC & OPIATE ANALOGS 5/MORE DRUG TEST 27400 GOMEZ DYER PRSMV 7 [facility] QUAL DIR INC INC OPTICAL OBS PER DAY NJX 52656 NEIDA ADRIANFF DX/THER 7 MD SUNNY, AGT PVRT PSC FACET JT LMBR/SAC 1 LEVEL NJX 82863 NEIDA ADRIANFF DX/THER 7 MD SUNNY, AGT PVRT PSC FACET JT LMBR/SAC 2ND LEVEL O2 CONC 1 E1390 NAOMIE AKBAR DEL PORT 7 HOME HOME 85%/>02 MEDICAL MEDICAL CONC AT EQUIPIL EQUIPIL PRSC FLW RATE DRUG TEST 09926 GOMEZ DYER PRSMV 7 [facility] QUAL DIR INC INC OPTICAL OBS PER DAY CYANOCOBA 64288 GOMEZ DYER JENNY 7 [facility] VITAMIN INC INC B-12 PPSV23 06824 [facility] FRANCISCO VACCINE 2 7 PHYSICIAN YRS OR S GROUP OLDER FOR SUBQ/IM USE DRUG TEST 76458 GOMEZ DYER PRSMV 7 [facility] QUAL DIR INC INC OPTICAL OBS PER DAY DRUG TEST G0480 GOMEZ DYER DEFINITV [address] ID INC INC METH P DAY 1-7 DRUG CL DRUG TEST G0481 GOMEZ DYER DEFINITV [address] ID INC INC METH P DAY 8-14 DRUG CL COMPREHEN 54738 [facility] SIVE 7 DARRYL DARRYL METABOLIC [facility]INGS PANEL BLOOD 13501 [facility] COUNT 7 DARRYL DARRYL COMPLETE HOLDINGS HOLDINGS AUTO&[place] [address] [facility] BLOOD/URI 7 DARRYL DARRYL C ACID HOLDINGS HOLDINGS LACTATE 05888 [facility] DEHYDROGE 7 DARRYL DARRYL [place] [address] [facility] MAGNESIUM 7 DARRYL [...] 85%/>02 MEDICAL MEDICAL CONC AT EQUIPME EQUIPME [facility] FLW RATE MOTION 56546 KUSH PEREZ [address] [place] [address] FUN C/V REC SWALLOWIN [address] KUSH Benson [address] W/[facility] IOGRAPY/V IDRADIOG ADMN SET A7005 NAOMIE AKBAR W/SM VOL 6 HOME HOME NONFILTR MEDICAL MEDICAL NEBULIZR EQUIPME EQUIPME NON-DISPB L COLLECTIO 15025 SHERMAN Perera VENOUS 6 [facility] [place] [address] [facility] ERYTHROPO 6 DARRYL DARRYL [place] [address] [facility] D[facility] FERRITIN 6 DARRYL DARRYL HOLDINGS HOLDINGS CYANOCOBA 27835 [facility] D[facility] JENNY 6 DARRYL DARRYL VITAMIN HOLDINGS HOLDINGS B-12 [place] [address] [facility] FOLIC [address] [facility] [place]ID [place] [address] [facility] IRON 6 DARRYL DARRYL HOLDINGS HOLDINGS NONINVASI 83430 SHERMAN MANZANARES VE 6 [facility] EAR/PULSE CLINIC OXIMETRY SINGLE DETER LACTATE 03682 [facility] DEHYDROGE 6 [facility] NASE [place] [address] [facility] [id number] 6 DARRYL DARRYL SFERRIN HOLDINGS HOLDINGS BLOOD 03215 [facility] COUNT 6 DARRYL DARRYL COMPLETE HOLDINGS HOLDINGS AUTO&AUTO DIFRNTL WBC BLOOD 77456 [facility] COUNT 6 [facility] RETICULOC [place] [address] [address]USH [address]ABRIEL [address] [place] [address] DYSFUNCTI ON&/ORAL FUNCJ FEEDING INTERROGA 22206 [facility] BRITANY TION 6 PHYSICIAN MAT EVALUATIO S GROUP N IN PERSON ILR SYSTEM ECG 42945 GOMEZ DYER ROUTINE 6 [facility] ECG INC INC W/LEAST 12 LDS TRCG ONLY W/O I&[place] [address] KUSH GABRIEL [address] [place] [address] DYSFUNCTI ON&/ORAL FUNCJ FEEDING HOS BED E0260 NAOMIE AKBAR SEMI-ELEC 6 HOME HOME W/ANY MEDICAL MEDICAL TYPE SIDE EQUIPME EQUIPME RAIL W/MATTRSS O2 CONC 1 E1390 NAOMIE GORDON 6 HOME HOME 85%/>02 MEDICAL MEDICAL CONC AT EQUIPME EQUIPME [facility] FLW RATE PRESCRIPT J8499 [facility] ION DRUG [address] [place] [address] NONCHEMOT HERAPEUTI C NOS PRESSURIZ 16557 [facility] ED/NONPRE [address] [place], [place] [address]URIZED [facility] [place] [address] [facility] IRON [address] [place] [address] IRON 13840 [facility] BINDING [address] [place] [address] [place] [address] [facility] FOLIC [address] [place] [address] ACID [facility] SERUM CYANOCOBA 78104 [facility] JENNY [address] [place] [address] B-12 [place] [address] [facility] FERRITIN [address] [place] [address] BASIC 16300 [facility] METABOLIC [address] [place] [address] CALCIUM TOTAL GENERAL 93411 [facility] HEALTH [address] [place] [address] [place] [address] [facility] LACTATE [address] [place] [address] CREATINE 35612 [facility] KINASE [address] [place] [address] HOSPITAL COLLECTIO 13487 [facility] N VENOUS [address] [place] [address] [place] [address] [facility] HEAD/BRAI [address] [place] [address] W/O [facility] [place] [address] [facility] INFUSION [address] [place] [address] HOSPITAL INITIAL 31 MIN-1 [place] [address] [facility] INFUSION [address] [place] [address] EACH ADDITIONA L HOUR ECG 18044 [facility] ROUTINE 6 DESIRE PHI ECG EMERGENCY W/LEAST PHYS 12 LDS I&R ONLY ECG 00958 [facility] ROUTINE [address] [place] [address] HOSPITAL W/LEAST 12 LDS TRCG ONLY W/O I&[place] [address] [facility] TROPONIN [address] [place] [address] [place] [address] [facility] MAGNESIUM [address] [place] [address] [place] [address] KUSH CURRIE FREE [address] [place] [address] HOSPITAL INFUSION J7030 KUSH CURRIE NORMAL [address] [place] [address] HOSPITAL SOLUTION 1000 CC HOSPITAL G0378 CURRIETAMI CURRIE OBSERVATI [address] [place] [address] HOSPITAL SERVICE PER HOUR CRITICAL 60637 [facility] 6 DESIRE PHI ILL/INJUR EMERGENCY ED PHYS PATIENT INIT 30-[place] [address] DYSFUNCTI ON&/[place] [address] DYSFUNCTI ON&/[place] [address] DYSFUNCTI ON&/[place] [address] DYSFUNCTI ON&/[place] [address] DYSFUNCTI ON&/[place] [address] DYSFUNCTI ON&/ORAL FUNCJ [place]ED[place] RADIOLOGI 95735 [place] [facility] 6 MEDICAL EXAMINATI IMAGING ON EYE ASS DETECT FOREIGN BODY 3D 20878 [place] JARRETT RENDERING 6 MEDICAL DEMARCUS W/INTERP IMAGING & ASS POSTPROCE SS SUPERVISI ON MRI 10943 [place] JARRETT SPINAL 6 MEDICAL DEMARCUS CANAL IMAGING LUMBAR ASS W/O CONTRAST MATERIAL ECG 02920 GOMEZ DYER ROUTINE 6 [facility] ECG INC INC W/LEAST 12 LDS TRCG ONLY W/O I&[place] [address] DYSFUNCTI ON&/ORAL FUNCJ [place]EDING PET 96636 SHERMAN MANZANARES IMAGING 6 Y [facility] FOR [facility] CLINIC ATTENUATI ON WHOLE BODY FLUORODEO A9552 SHERMAN MANZANARES XYGLUCOSE 6 [facility] F-18 FDG CLINIC DX UP TO [address] [place] [address] KUSH GABRIEL [address] [place] [address] DYSFUNCTI ON&/ORAL FUNCJ FEEDING HOS BED E0260 NAOMIE AKBAR SEMI-ELEC 6 HOME HOME W/ANY MEDICAL MEDICAL TYPE SIDE EQUIPME EQUIPME RAIL W/MATTRSS O2 CONC 1 E1390 NAOMIE AKBAR DEL PORT 6 HOME HOME 85%/>02 MEDICAL MEDICAL CONC AT [place] [address] KUSH GABRIEL [address] [place] [address] DYSFUNCTI ON&/[place] [address] KUSH GABRIEL [address] [place] [address] DYSFUNCTI ON&/ORAL FUNCJ FEEDING BLOOD 23358 [facility] COUNT 6 DARRYL DARRYL COMPLETE [employer]INGS HOLDINGS AUTO&AUTO DIFRNTL WBC LACTATE 91094 [facility] DEHYDROGE 6 DARRYL DARRYL NASE LDH [facility]INGS COMPREHEN 81762 [facility] SIVE 6 DARRYL DARRYL METAB[place] [address] KUSH GABRIEL [address] [place] [address] DYSFUNCTI ON&/[place] [address] KUSH GABRIEL [address] [place] [address] DYSFUNCTI ON&/[place] [address] KUSH GABRIEL [address] [place] [address] DYSFUNCTI ON&/ORAL FUNCJ FEEDING DRUG TST G0477 GOMEZ DYER PRESUMP;C 6 [facility] PBL BEING INC INC READ DC OPT OBV ONLY DRUG TEST G0481 GOMEZ DYER DEFINITV [address] ID INC INC METH P DAY 8-[place] [address] KUSH GABRIEL [address] [place] [address] DYSFUNCTI ON&/[place] [address] KUSH GABRIEL [address] [place] [address] DYSFUNCTI ON&/[place] [address] KUSH CURRIE SWALLOWIN [address] [place] [address] DYSFUNCTI ON&/[place] [address] KUSH CURRIE SWALLOWIN [address] [place] [address] HOSPITAL DYSFUNCTI ON&/ORAL FUNCJ FEEDING DUPLEX 22627 GOMEZ GOMEZ SCAN 6 [facility] EXTRACRAN INC INC IAL ART COMPL BI STUDY HOS BED E0260 NAOMIE AKBAR SEMI-ELEC 6 HOME HOME W/ANY MEDICAL MEDICAL TYPE SIDE EQUIPME EQUIPME RAIL W/MATTRSS O2 CONC 1 E1390 NAOMIE AKBAR DEL PORT 6 HOME HOME 85%/>02 MEDICAL MEDICAL CONC AT EQUIPME EQUIPME PRSC FLW RATE INTERROGA 03062 [facility] BRITANY TION 6 PHYSICIAN MAT EVALUATIO S GROUP N IN PERSON ILR SYSTEM ECG 39702 GOMEZ DYER ROUTINE 6 [facility] ECG INC INC W/LEAST 12 LDS TRCG ONLY W/O I&R HOS BED E0260 NAOMIE NAOMIE SEMI-ELEC 6 HOME HOME W/ANY MEDICAL MEDICAL TYPE SIDE EQUIPME EQUIPME RAIL W/MATTRSS O2 CONC 1 E1390 NAOMIE AKBAR DEL PORT 6 HOME HOME 85%/>02 MEDICAL MEDICAL CONC AT EQUIPME EQUIPME PRSC FLW RATE DIRECT G0299 ST EDENILSON CASTELLANO RN 6 [facility] STOREHOUSE CLERK STOREHOUSE CLERK SPICE SET EA 15 MIN LACTATE 20483 [facility] DEHYDROGE 6 DARRYL DARRYL NASE [facility] BLOOD 53688 [facility] D[facility] COUNT 6 DARRYL DARRYL COMPLETE [employer] HOLDINGS AUTO&AUTO DIFRNTL WBC COMPREHEN 76859 [facility] D[facility] SIVE 6 DARRYL DARRYL METABOLIC [employer] HOLDINGS PANEL DIRECT G0299 ST EDENILSON CASTELLANO RN 6 [facility]/HO STOREHOUSE CLERK STOREHOUSE CLERK SPICE SET EA [address] EDENILSON CASTELLANO RN 6 [facility] STOREHOUSE CLERK STOREHOUSE CLERK SPICE SET EA 15 MIN HOME [place]; S9341 INFUSION INFUSION ENTERAL 6 PARTNERS PARTNERS NUTRITION OF OF VIA [place] GRAVITY; FINISH SANDER ENTRAL F B4152 INFUSION INFUSION NUTRITION 6 PARTNERS PARTNERS CMPL VASQUEZ OF OF DENSE [place] INTACT NUTRNTS INTERROGA 48979 [facility] BRITANY TION 6 PHYSICIAN MAT EVALUATIO S GROUP N IN PERSON ILR SYSTEM HOS BED E0260 NAOMIE AKBAR SEMI-ELEC 6 HOME HOME W/ANY MEDICAL MEDICAL TYPE SIDE EQUIPME EQUIPME RAIL W/MATTRSS DIRECT G0299 ST EDENILSON CASTELLANO RN 6 [facility] STOREHOUSE CLERK SPICE SET EA 15 MIN O2 CONC 1 E1390 NAOMIE AKBAR DEL PORT 6 HOME HOME 85%/>02 MEDICAL MEDICAL CONC AT EQUIPME EQUIPME PRSC FLW RATE DIRECT G0299 ST EDENILSON CASTELLANO RN 6 [facility] STORE[facility]SE CLERK SPICE SET EA 15 MIN BLOOD 63684 GOMEZ DYER COUNT 6 [facility] COMPLETE INC INC AUTO&AUTO DIFRNTL WBC BASIC 81353 GOMEZ DYER METABOLIC 6 [facility] PANEL INC INC CALCIUM TOTAL RADIOLOGI 94809 [place] [address] MEDICAL DEMARCUS EXAMINATI IMAGING ON CHEST ASS SINGLE VIEW FRONTAL COLLECTIO 48978 GOMEZ DYER N VENOUS 6 [facility]OS[facility] BLOOD INC INC VENIPUNCT URE DIRECT G0299 ST EDENILSON CASTELLANO RN 6 [facility] STOREHOUSE CLERK SPICE SET EA 15 MIN SBSQ 52617 [facility] 6 MEDICAL CARE/DAY SERV 25 FOUNDATIO MINUTES N ADDITIVE B4104 INFUSION INFUSION FOR 6 PARTNERS PARTNERS ENTERAL OF OF [place]MULA [place] ENTRAL F B4152 INFUSION INFUSION NUTRITION 6 PARTNERS PARTNERS CMPL VASQUEZ OF OF DENSE [place] INTACT NUTRNTS HOME [place]; S9341 INFUSION INFUSION ENTERAL 6 PARTNERS PARTNERS NUTRITION OF OF VIA [place]; [place] [address] TIFFANIE BRANDEE RETROPERI 6 MEDICAL ADR TONEAL SERV REAL TIME FOUNDATIO W/IMAGE N COMPLETE RADIOLOGI 64731 TIFFANIE OCONNELL HENRIK C 6 MEDICAL EXAMINATI SERV ON CHEST FOUNDATIO SINGLE N VIEW FRONTAL THORACENT 36754 TIFFANIE RAISSI ESIS 6 MEDICAL DRI NEEDLE/CA SERV TH PLEURA FOUNDATIO N W/IMAGING CYTP 71396 [facility] SLCTV 6 Y OF ОЛЕГ CELL [place] [facility] HOSPI NT INTERP[place] XCPT C/[place] [address] [facility] 6 Y OF ОЛЕГ PATHOLOGY [place] [facility] GROSS&KAMILA ROSCOPIC EXAM SBSQ 51736 [facility] 6 MEDICAL OS CARE/DAY SERV 25 FOUNDATIO MINUTES N SBSQ [address]15 [facility] 6 MEDICAL OS CARE/DAY SERV 25 FOUNDATIO MINUTES N SBSQ 01759 [facility] 6 MEDICAL OS ROZINA CARE/DAY SERV 25 FOUNDATIO MINUTES N SBSQ [address]79 [facility] 6 MEDICAL OS ROZINA CARE/DAY SERV 25 FOUNDATIO MINUTES N INITIAL 29974 [facility] 6 DESIRE A RIVAS CARE/DAY PHYSICIAN 70 SERVI MINUTES SWALLOWIN 92081 AR PEREZ Benson FUNCJ 6 MEDICAL SCO W/CINERAD SERV IOGRAPY/V FOUNDATIO IDRADIOG N RADIOLOGI 61075 [place] PHILIP ALL C EXAM 6 MEDICAL CHEST 2 IMAGING VIEWS ASS FRONTAL&L ATERAL CT THORAX 52781 [place] PHILIP ALL 6 MEDICAL W/CONTRAS IMAGING T ASS MATERIAL ECG 60511 [place] ROUTINE 6 MEDICAL NAN ECG SERV W/LEAST FOUNDATIO 12 LDS N I&R ONLY HOSPITAL 95548 [facility] 6 DESIRE IRM DAY PHYSICIAN MANAGEMEN SERVI T > 30 MIN SBSQ 68056 [facility] 6 DESIRE IRM CARE/DAY PHYSICIAN 25 SERVI MINUTES SBSQ 73074 [facility] 6 DESIRE IRM CARE/DAY PHYSICIAN 25 SERVI MINUTES SBSQ 80514 [facility] 6 DESIRE IRM CARE/DAY PHYSICIAN 25 SERVI MINUTES INITIAL 33500 [facility] 6 DESIRE IRM CARE/DAY PHYSICIAN 70 SERVI MINUTES O2 CONC 1 E1390 [place] [address] HOME HOME 85%/>02 MEDICAL MEDICAL CONC AT EQUIPME [facility] PRS FLW RATE DRUG TST G0477 GOMEZ DYER PRESUMP;C 6 [facility] PBL BEING INC INC READ DC OPT OBV ONLY O2 CONC 1 E1390 [place] [address] HOME HOME 85%/>02 MEDICAL MEDICAL CONC [facility] FLW RATE DRUG TST G0477 GOMEZ [...] DRUG CL O2 CONC 1 E1390 [place] [address] HOME HOME 85%/>02 MEDICAL MEDICAL CONC AT EQUIPME [facility] FLW RATE DRUG TST G0477 GOMEZ DYER PRESUMP;C 6 [facility] PBL BEING INC INC READ DC OPT OBV ONLY INTERROGA 52256 [facility] BRITANY TION 5 CULAR MAT EVALUATIO CONSULTAN N IN TS O PERSON ILR SYSTEM INTERROGA 76127 [facility] BRITANY TION 5 CULAR MAT EVALUATIO CONSULTAN N IN TS O PERSON ILR SYSTEM O2 CONC 1 E1390 NAOMIE [facility] 5 HOME HOME 85%/>02 MEDICAL MEDICAL CONC AT EQUIPME [facility] FLW RATE ECG 38245 CARDIOV[facility] BRITANY ROUTINE 5 CULAR MAT ECG CONSULTAN W/LEAST TS O 12 LDS I&R ONLY ECG 12992 GOMEZ DYER ROUTINE 5 [facility] ECG INC INC W/LEAST 12 LDS TRCG ONLY W/O I&R INTERROGA 06548 CARDIOV[facility] BRITANY TION 5 CULAR MAT EVALUATIO CONSULTAN N IN TS O PERSON ILR SYSTEM O2 CONC 1 E1390 NAOMIE [facility] 5 HOME HOME 85%/>02 MEDICAL MEDICAL CONC AT [facility] FL[facility] INJECTION J0696 GOMEZ MINAYAEMILI 5 [facility] SODIUM PER 250 MG THERAPEUT 15683 GOMEZ HICKMAN IC 5 [facility] TIC/DX INJECTION SUBQ/IM HOSPITAL 89822 [facility] 5 DESIRE DAY PHYSICIAN MANAGEMEN SERVI T > 30 MIN SBS 81340 [facility] 5 [facility] CARE/DAY CLINIC 35 MINUTES SBS 68453 [facility] 5 DESIRE CARE/DAY PHYSICIAN 25 SERVI MINUTES INITIAL 78125 [facility] 5 DESIRE CARE/DAY PHYSICIAN 30 SERVI MINUTES INITIAL 56759 [facility] 5 Y [facility] CARE/DAY CLINIC 70 MINUTES RADIOLOGI 58857 [facility] C EXAM 5 NGOZI CHEST 2 RADIOLOGY VIEWS ASSOCIAT FRONTAL&L ATERAL INTERROGA 12630 C[facility] BRITANY TION 5 CULAR MAT EVALUATIO CONSULTAN N IN TS O PERSON ILR SYSTEM ECG 35732 [facility] BRITANY ROUTINE 5 CULAR MAT ECG CONSULTAN W/LEAST TS O 12 LDS I&R ONLY ECG 34438 GOMEZ DYER ROUTINE 5 [facility] ECG INC INC W/LEAST 12 LDS TRCG ONLY W/O I&R O2 CONC 1 E1390 NAOMIE GORDON 5 HOME HOME 85%/>02 MEDICAL MEDICAL CONC AT [facility] FL[facility] LOCM Q9967 GOMEZ DYER 300-399 5 [facility] MG/ML INC INC IOD[place] [address] GOMEZ DYER UREA 5 [facility] NITROGEN INC INC QUANTITAT [place] COLLECTIO 26465 GOMEZ DYER N VENOUS 5 [facility] BLOOD INC INC VENIPUNCT URE CT SOFT 56867 [place] [facility] ALL TISSUE 5 MEDICAL NECK W/O IMAGING & ASS W/[place] [address] GOMEZ DYER ANGIOGRAP 5 [facility] HY NECK INC INC W/CONTRAS T/NONCONT RAST CREATININ 41821 GOMEZ DYER E BLOOD 5 MEM [facility] HOSP [place] 04611 [facility] 5 Y [facility] FOR [facility] CLINIC ATTENUATI ON WHOLE BODY FLUORODEO A9552 [facility] XYGLU[facility] 5 [facility] F-18 FDG CLINIC DX UP TO [address] THORAX 56744 CURRIE LAURENCE W/O & 5 REGIONAL GLE W/CONTRAS MEDICAL T BELKIS MATERIAL CT SOFT 70841 KUSH LAURENCE TISSUE 5 REGIONAL GLE NECK W/O MEDICAL & [place] [address] KUSH WILLISMACK HEAD/BRAI 5 REGIONAL GLE N W/O & MEDICAL W/CONTRAS BELKIS T MATERIAL GENERAL 10467 [facility] HEALTH 5 DARRYL DARRYL [place] [address] [facility] D[facility] FOLIC 5 DARRYL DARRYL ACID [facility] SERUM CYANOCOBA 40017 [facility] JENNY 5 DARRYL DARRYL VITAMIN [facility] [facility] B-12 LACTATE 11704 [facility] DEHYDROGE 5 DARRYL DARRYL NASE LDH [facility] ECG 19448 GOMEZ DYER ROUTINE 5 [facility] ECG INC INC W/LEAST 12 LDS TRCG ONLY W/O I&R ECG 46305 CARDIOVAS BRITANY ROUTINE 5 CULAR MAT ECG CONSULTAN W/LEAST TS O 12 LDS I&R ONLY O2 CONC 1 E1390 NAOMIE [facility] 5 HOME HOME 85%/>02 MEDICAL MEDICAL CONC AT EQUIPME EQUIPME PRS FLW RATE ECG 06908 CARDIOVAS BRITANY ROUTINE 5 CULAR MAT ECG CONSULTAN W/LEAST TS O 12 LDS I&R ONLY ECG 96928 GOMEZ DYER ROUTINE 5 [facility] ECG INC INC W/LEAST 12 LDS TRCG ONLY W/O I&R DUPLEX 28767 PATRICIA PHILIP ALL SCAN 5 MEDICAL EXTRACRAN IMAGING IAL ART ASS COMPL BI STUDY ECG 55988 GOMEZ DYER ROUTINE 5 [facility] ECG INC INC W/LEAST 12 LDS TRCG ONLY W/O I&R ECG 50610 CARDIOVAS CARDIOVAS ROUTINE 5 CULAR CULAR ECG CONSULTAN CONSULTAN W/LEAST TS O TS O 12 LDS I&R ONLY IMPLANTAT 41925 CARDIOVAS BRITANY ION 5 CULAR MAT PT-ACTIVA CONSULTAN VIVIAN TS O CARDIAC EVENT RECORDER O2 CONC 1 E1390 [facility] HOME 85%/>02 [facility] 83465 CARDIOVAS BRITANY ROUTINE 5 CULAR MAT ECG CONSULTAN W/LEAST TS O 12 LDS I&R ONLY ECG 89822 GOMEZ DYER ROUTINE 5 [facility] ECG INC INC W/LEAST 12 LDS TRCG ONLY W/O I&R ECG 24593 CARDIOVAS BRITANY ROUTINE 5 CULAR MAT ECG CONSULTAN W/LEAST TS O 12 LDS W/I&R O2 CONC 1 E1390 [facility] HOME HOME 85%/>02 [facility] [address] GOMEZ DYER THYROXINE 5 [facility] [place] [address] GOMEZ DYER THYROID 5 [facility] STIMULATI INC INC NG HORMONE TSH BLOOD 11843 GOMEZ DYER COUNT 5 [facility] COMPLETE INC INC AUTO&AUTO DIFRNTL WBC COLLECTIO 06104 GOMEZ DYER N VENOUS 5 [facility] [place] [address] GOMEZ DYER FOLIC 5 [facility] ACID INC INC SERUM CYANOCOBA 91569 GOMEZ DYER JENNY 5 [facility] VITAMIN INC INC B-12 25 84975 GOMEZ DYER HYDROXY 5 [facility] INCLUDES INC INC FRACTIONS IF PERFORMED COMPREHEN 22018 GOMEZ DYER SIVE 5 [facility] METABOLIC INC INC PANEL COMPREHEN 28134 JESSICADOWALFONSO MEADOWVIE SIVE 5 W W METABOLIC REGIONAL REGIONAL PANEL MEDICAL MEDICAL CREATINE 29757 MEADOWVIE MEADOWVIE KINASE 5 W W [place] [address] MEADOWVIE MEADOWVIE HEAD/BRAI 5 W W N W/O REGIONAL REGIONAL CONTRAST MEDICAL MEDICAL MATERIAL RADIOLOGI 29875 MEADOWVIE MEADOWVIE C 5 W W EXAMINATI REGIONAL REGIONAL ON CHEST MEDICAL MEDICAL SINGLE VIEW FRONTAL BLOOD 53438 MEADOWVIE MEADOWVIE COUNT 5 W W COMPLETE REGIONAL REGIONAL AUTO&AUTO [place] [address] MEADOWVIE MEADOWVIE TROPONIN 5 W W QUANTITAT REGIONAL REGIONAL [place] MEDICAL MEDICAL INFUSION J7030 MEADOWVIE MEADOWVIE NORMAL 5 W W SALINE REGIONAL REGIONAL SOLUTION MEDICAL MEDICAL 1000 CC ECG 10546 [facility] ROUTINE 5 DESIRE TARAH ECG EMERGENCY W/LEAST PHYS 12 LDS I&R ONLY ECG 39598 MEADOWVIE MEADOWVIE ROUTINE 5 W W ECG REGIONAL REGIONAL W/LEAST MEDICAL MEDICAL 12 LDS TR[place] ONLY W/[place] [address] MEADOWVIE MEADOWVIE INFUSION 5 W W HYDRATION REGIONAL REGIONAL INITIAL MEDICAL MEDICAL 31 MIN-1 [place] [address] [facility] [place] [facility] CRTD ART MEDICAL EMBOLIC G PROTECJ RADIOLOGI 43577 [facility] [place] C EXAM 5 RADIOLOGY CAR CHEST 2 VIEWS FRONTAL&[place] [address] [facility] [place] ST[place] CRV 5 [facility] [place] CRTD ART MEDICAL EMBOLIC G PROTECJ SLCTV 84091 [facility] [place] CATH 5 [facility] CAROTID/I MEDICAL NNOM ART G ANGIO XTRCRANL ART PERCUTANE [address] ANGIOPLAS TY EXTRACRAN IAL VESSELS PERCUTANE 0063 [facility] OUS [address] [place] [address] HOSPITAL INSERTION CAROTID ARTERY STENT(S) INSERTION 0045 [facility] OF ONE [address] [place] [address] VASCULAR STENT PROCEDURE 0040 [facility] ON [address] [place] [address] SINGLE VESSEL PROCEDURE 0044 [facility] ON [address] [place] [address] VESSEL BIFURCATI ON DUPLEX 11392 ZEYAD LEXIE SCAN 5 NE HEALTH KAMILA EXTRACRAN MEDICAL IAL ART G COMPL BI STUDY THERAPEUT 32059 [facility] FRANCISCO IC 5 PHYSICIAN KAMILA PROPHYLAC S GROUP TIC/DX INJECTION SUBQ/IM INJECTION [id number] [facility] FRANCISCO 5 PHYSICIAN KAMILA CEFTRIAXO S GROUP NE SODIUM PER 250 MG INJECTION J1040 [facility] FRANCISCO 5 PHYSICIAN KAMILA METHYLPRE S GROUP DNISOLONE ACETATE 80 MG SBSQ 28002 [facility] 5 CULAR MAT CARE/DAY CONSULTAN 25 TS O MINUTES OBSERVATI 02503 [facility] ON CARE 5 [place] [address] [facility] HEAD/BRAI 5 VENANCIO N W/O RADIOLOGY CONTRAST ASSOCIAT MATERIAL RADIOLOGI 44406 [facility] C 5 EXAMINATI RADIOLOGY RADIOLOGY ON CHEST ASSOCIAT ASSOCIAT SINGLE VIEW FRONTAL [facility] [place] [address] CARDIOVAS BRITANY CATH 5 CULAR MAT INTRNL CONSULTAN CAROTID TS O ART ANGIO INTRCRNL ART [facility] [place] [address] CARDIOVAS BRITANY CATHJ EA 5 CULAR MAT 1ST ORD CONSULTAN ABDL TS O PEL/LXTR ART BRNCH DUPLEX 13254 [facility] VENANCIO EXTRACRAN RADIOLOGY IAL ART ASSOCIAT COMPL BI STUDY CATH PLMT 44630 CARDIOVAS BRITANY L HRT & 5 CULAR MAT ARTS CONSULTAN W/NJX & TS O ANGIO IMG S&I ECG 87531 CARDIOVAS BLACK JAZZMINE ROUTINE 5 CULAR ECG CONSULTAN W/LEAST TS O 12 LDS W/I&R INITIAL 77105 [facility] OBSERVATI 5 VALLEY ABR ON HEART [...] PER ML O2 CONC 1 E1390 [facility]IE [facility] 5 HOME HOME 85%/>02 MEDICAL MEDICAL CONC AT EQUIPME [facility] FLW RATE BLOOD 58021 K[facility] CURRIE COUNT 5 CO CO [facility] AUTO&AUTO DIFRNTL WBC COMPREHEN 54710 [facility] CURRI[facility] SIVE 5 CO [facility] PANEL COMPREHEN 61132 GOMEZ DYER SIVE 5 [facility] METABOLIC INC INC PANEL BLOOD 08607 GOMEZ GOMEZ COUNT 5 [facility] COMPLETE INC INC AUTO&AUTO DIFRNTL WBC HEMOGLOBI 93993 GOMEZ DYER N 5 [facility] GLYCOSYLA INC INC VIVIAN A1C ADMN SET A7005 YOUR YOUR W/SM VOL 5 PHARMACY PHARMACY [facility] NEBULIZR NON-DISPB L O2 CONC 1 E1390 [facility] 5 HOME HOME 85%/>02 [facility]ICAL [facility] FLW [facility]ATE INJECTION J1030 [facility] 5 CO [facility] DNISOLONE ACETATE 40 MG BLOOD 17752 [facility] COUNT 5 CO CO [facility] AUTO&AUTO DIFRNTL WBC PRESSURIZ 37840 [facility] ED/NONPRE 5 CO CO [facility] INHALATIO N TREATMENT THERAPEUT 31125 [facility] IC 5 CO [facility] TIC/DX INJECTION SUBQ/IM BASIC 66460 [facility] CURRI[facility] METABOLIC 5 CO [facility] CALCIUM TOTAL COLLECTIO 86378 [facility] CURRI[facility] N VENOUS 5 CO [facility] VENIPUNCT URE RADIOLOGI 92585 [facility] EXAM 5 DESIRE JAM CHEST 2 EMERGENCY VIEWS PHYS FRONTAL&L ATERAL O2 CONC 1 E1390 [facility] 5 HOME HOME 85%/>02 MEDICAL MEDICAL CONC AT EQUIPME EQUIPME PRSC FLW RATE OPHTH 39932 [facility] 5 GRE GRE XM&EVAL COMPRE NEW PT 1/> VST O2 CONC 1 E1390 [facility] 5 HOME HOME 85%/>02 MEDICAL [...] METABOLIT HOLDINGS HOLDINGS ES EACH PROCEDURE CREATININ 80991 [facility] E OTHER 5 DARRYL DARRYL SOURCE HOLDINGS HOLDINGS LIPID 32050 [facility] PANEL 5 DARRYL DARRYL HOLDINGS HOLDINGS GENERAL 67289 [facility] HEALTH 5 DARRYL DARRYL PANEL HOLDINGS HOLDINGS COLLECTIO 70386 CHENCHO ELENA N VENOUS 5 CLINIC BLOOD [...] YOUR YOUR W/SM VOL 4 PHARMACY [facility] NON-DISPB L O2 CONC [...] EQUIPME EQUIPME PRSC FLW RATE LOCM Q9967 [facility] 300-399 4 Y Y MG/ML HOSPITAL HOSPITAL IODINE CONCENTRA TION PER ML CT SOFT 88119 [facility] 4 Y Y NECK [facility] W/CONTRAS T MATERIAL CT THORAX 72587 [place] [facility]OGERS JONATAN 4 MEDICAL W/CONTRAS SERV T FOUNDATIO MATERIAL COLLECTIO 81428 CHENCHO Perera VENOUS 4 CLINIC NHI BLOOD VENIPUNCT URE COMPREHEN 35448 [facility] DIEGO SIVE 4 DARRYL DARRYL METABOLIC HOLDINGS HOLDINGS PANEL BLOOD 75890 [facility]IE[facility] COUNT 4 DARRYL DARRYL COMPLETE [place] [address] [facility] LAB DIE[facility] PROSTATE 4 DARRYL DARRYL SPECIFIC [place] [address] LAB D[facility] LAB DIE[facility] PROSTATE 4 DARRYL DARRYL SPECIFIC [place] [address] LAB DIEGO LAB DIEGO FREE 4 DARRYL DARRYL [place]RO[place] [address] LAB DIEGO LAB DIEGO TRIIODOTH 4 DARRYL DARRYL YRONINE HOLDINGS HOLDINGS T3 [place] [address] [place] [address] LAB DIEGO LAB D[facility] THYROID 4 DARRYL [...] YOUR YOUR W/SM VOL 4 PHARMACY PHARMACY [employer] [place] [address] LAB D[facility] LAB D[facility]GO THYROID 4 OF DARRYL STIMULATI DARRYL HOLDINGS NG HOLDINGS HORMONE TSH BLOOD 45791 [facility] LAB DIEGO COUNT 4 OF DARRYL COMPLETE DARRYL HOLDINGS AUTOMATED HOLDINGS COMPREHEN 96213 [facility] LAB DIEGO SIVE 4 OF DARRYL METABOLIC DARRYL HOLDINGS PANEL HOLDINGS LIPID 18469 [facility] LAB DIE[facility] PANEL 4 OF DARRYL DARRYL HOLDINGS HOLDINGS CREATINE 94026 [facility] DIE[facility] KINASE 4 OF DARRYL TOTAL DARRYL HOLDINGS HOLDINGS COLLECTIO 81664 CHENCHO FISCHER N VENOUS 4 CLINIC SE [...] YOUR YOUR SM VOL 4 PHARMACY PHARMACY [email or web address] PNEUMAT NEBULIZR DISPBL IM ADM 09216 CHENCHO HUTCHINS- PRQ ID 4 CLINIC [address] [place] SUBQ/IM NJXS 1 VACCINE IIV3 25515 CHENCHO HUTCHINS- VACCINE 4 CLINIC SE [place] [...] NONFILTR LLC LLC PNEUMAT NEBULIZR DISPBL DUPLEX 49928 Kumo, Kumo, SCAN 3 SIGNAL AND COMMUNICATIONS MAINTAINER SIGNAL AND COMMUNICATIONS MAINTAINER EXTRACRAN JESSIE ROMAN IAL ART CO HOS CO HOS COMPL BI STUDY LIPID 10696 [facility] DIEGO PANEL 3 DARRYL DARRYL HOLDINGS HOLDINGS GENERAL 30366 LAB [facility] LAB DIE[facility] HEALTH 3 DARRYL [...] AT EQUIPME EQUIPME PRSC FLW RATE COMPREHEN 51685 [facility] LAB DIEGO SIVE 3 OF AMERIC METABOLIC DARRYL HOLDING PANEL HOLDINGS LIPID 79210 [facility] DIE[facility] PANEL 3 OF AMERIC DARRYL HOLDING HOLDINGS CREATINE 55229 [facility] DIEGO KINASE 3 OF AMERIC TOTAL DARRYL HOLDING HOLDINGS BLOOD 25888 [facility] LAB DIEGO COUNT 3 OF AMERIC COMPLETE DARR[place] [address] LAB DIEGO LAB D[facility] THYROID 3 OF AMERIC STIMULATI DARRYL HOLDING NG HOLDINGS HORMONE TSH ADMN SET A7003 YOUR YOUR SM VOL 3 PHARMACY PHARMACY NONFILTR [facility] PNEUMAT NEBULIZR DISPBL O2 CONC 1 E1390 [facility] 3 HOME HOME 85%/>02 MEDICAL MEDICAL CONC AT EQUIPME EQUIPME PRSC FLW RATE ADMN SET A7003 YOUR YOUR SM VOL 3 PHARMACY PHARMACY NONFILTR [facility] PNEUMAT NEBULIZR DISPBL LOCM Q9967 [facility] 300-399 3 MG/ML DIAGNOSTI DIAGNOSTI IODINE C CENTER, C CENTER, CONCENTRA TION PER ML CT SOFT 36073 [facility] TISSUE 3 NECK DIAGNOSTI DIAGNOSTI W/CONTRAS C CENTER, C CENTER, T MATERIAL CT THORAX 33111 [facility] 3 W/CONTRAS DIAGNOSTI DIAGNOSTI T C CENTER, C CENTER, MATERIAL O2 CONC 1 E1390 [facility] 3 HOME HOME 85%/>02 MEDICAL MEDICAL CONC AT EQUIPME EQUIPME PRSC FLW RATE ADMN SET A7003 YOUR YOUR SM VOL 3 PHARMACY PHARMACY NONFILTR [facility] PNEUMAT NEBULIZR DISPBL O2 CONC 1 E1390 [facility] 3 HOME HOME 85%/>02 MEDICAL MEDICAL CONC AT EQUIPME EQUIPME PRSC FLW RATE ADMN SET A7003 YOUR YOUR SM VOL 3 PHARMACY PHARMACY NONFILTR [facility] PNEUMAT NEBULIZR DISPBL O2 CONC 1 E1390 [facility] 3 HOME HOME 85%/>02 MEDICAL MEDICAL CONC AT EQUIPME EQUIPME PRSC FLW RATE ADMN SET A7003 YOUR YOUR SM VOL 3 PHARMACY PHARMACY NONFILTR [facility] PNEUMAT NEBULIZR DISPBL O2 CONC 1 E1390 NAOMIE [facility] 3 HOME HOME 85%/>02 MEDICAL MEDICAL CONC AT EQUIPME EQUIPME PRSC FLW RATE NEBULIZER E0570 NAOMIE AKBAR WITH 3 HOME HOME COMPRESSO MEDICAL MEDICAL R EQUIPME EQUIPME ADMN SET A7003 YOUR YOUR SM VOL 3 PHARMACY PH[facility] PNEUMAT NEBULIZR DISPBL CYANOCOBA 17773 [facility] LAB DIEGO JENNY 3 DARRYL DARRYL VITAMIN HOLDINGS HOLDINGS B-12 [place] [address] LAB DIEGO LAB DIEGO FOLIC 3 DARRYL DARRYL ACID HOLDINGS HOLDINGS SERUM BLOOD 84243 [facility] LAB DIEGO COUNT 3 DARRYL DARRYL COMPLETE HOLDINGS HOLDINGS AUTO&AUTO DIFRNTL WBC ADMN SET A7003 YOUR YOUR SM VOL 3 PHARMACY PH[facility] [place] [address] LAB DIEGO LAB DIEGO THYROID 3 DARRYL DARRYL STIMULATI HOLDINGS HOLDINGS NG HORMONE TSH LIPID 77999 [facility] DIEGO PANEL 3 DARRYL DARRYL HOLDINGS HOLDINGS COMPREHEN 18128 LAB [facility] DIE[facility] SIVE 3 DARRYL DARRYL METABOLIC HOLDINGS HOLDINGS PANEL CT THORAX 01859 [facility] W/O 3 Y Y CONTRAST [facility] MATERIAL O2 CONC 1 E1390 [facility]IE [facility] 3 HOME HOME 85%/>02 MEDICAL MEDICAL CONC AT EQUIPME EQUIPME PRSC FLW RATE ADMN SET A7003 YOUR YOUR SM VOL 2 PHARMACY PHARMACY NONFILTR [facility] PNEUMAT NEBULIZR DISPBL O2 CONC 1 E1390 NAOMIE [facility] 2 HOME HOME 85%/>02 MEDICAL MEDICAL CONC AT EQUIPME EQUIPME PRSC FLW RATE CT THORAX 53328 ATTILI ATTILI 2 ANI ANI W/CONTRAS T MATERIAL CT SOFT 90433 RHONDA KHAN TISSUE 2 NECK W/CONTRAS T MATERIAL ADMN SET A7003 YOUR YOUR SM VOL 2 PHARMACY PHARMACY NONFILTR [facility] PNEUMAT NEBULIZR DISPBL O2 CONC 1 E1390 NAOMIE AKBAR [facility] 2 HOME HOME 85%/>02 MEDICAL MEDICAL CONC AT EQUIPME EQUIPME PRSC FLW RATE ADMN SET A7003 YOUR YOUR SM VOL 2 PHARMACY [facility] PNEUMAT NEBULIZR DISPBL O2 CONC 1 E1390 [facility]IE [facility] 2 HOME HOME 85%/>02 MEDICAL MEDICAL CONC AT EQUIPME EQUIPME PRSC FLW RATE ADMN SET A7003 YOUR YOUR SM VOL 2 PHARMACY PH[facility]Y [facility] PNEUMAT NEBULIZR DISPBL IIV3 21015 MARGO ARAGON VACCINE 2 Apr SPLIT VIRUS 0.5 ML DOSAGE IM USE IM ADM 04979 MARGO ARAGON PRQ ID 2 Apr SUBQ/IM NJXS 1 VACCINE O2 CONC 1 E1390 [facility]IE [facility] 2 HOME HOME 85%/>02 MEDICAL MEDICAL CONC AT EQUIPME EQUIPME PRSC FLW RATE ADMN SET A7003 YOUR YOUR SM VOL 2 PHARMACY PH[facility] PNEUMAT NEBULIZR DISPBL O2 CONC 1 E1390 [facility] [place] 2 HOME HOME 85%/>02 MEDICAL MEDICAL CONC AT EQUIPME EQUIPME PRSC FLW RATE ADMN SET A7003 YOUR YOUR SM VOL 2 PHARMACY PHARMACY NONFIL [email or web address] [facility] PNEUMAT NEBULIZR DISPBL POLYSOM 58826 [employer], 6/>YRS 2 SIGNAL AND COMMUNICATIONS MAINTAINER SIGNAL AND COMMUNICATIONS MAINTAINER SLEEP 4/> JESSIE ROMAN ADDL CO HOS CO HOS YESENIA ATTND COMPRE 22711 [facility] AUDIOMETR 2 Y Y Y [facility] THRESHOLD EVAL SP RECOGNIJ TYMPANOME 99866 [facility] 2 Y Y HOSPITAL HOSPITAL O2 CONC 1 E1390 [facility] [place] 2 HOME HOME 85%/>02 MEDICAL MEDICAL CONC AT EQUIPME EQUIPME PRSC FLW RATE ADMN SET A7003 YOUR YOUR SM VOL 2 PHARMACY PHARMACY NONFILTR [facility] PNEUMAT NEBULIZR DISPBL O2 CONC 1 E1390 [facility]IE [facility] [place] 2 HOME HOME 85%/>02 MEDICAL MEDICAL CONC AT EQUIPME EQUIPME PRSC FLW RATE ADMN SET A7003 YOUR YOUR SM VOL 2 PHARMACY PHARMACY NONFILTR LLC LLC PNEUMAT NEBULIZR DISPBL LOCM Q9967 [facility] 300-399 2 Y Y MG/ML HOSPITAL HOSPITAL IODINE CONCENTRA TION PER ML CT SOFT 83590 [facility] 2 Y Y NECK [facility] W/CONTRAS T MATERIAL CT THORAX 80575 [place] PAYNE 2 MEDICAL KAMILA W/CONTRAS SERV T FOUNDATIO MATERIAL CREATININ 47185 [facility] E BLOOD 2 Y Y [facility] O2 CONC 1 E1390 [facility]IE [facility] [place] 2 HOME HOME 85%/>02 MEDICAL MEDICAL CONC AT EQUIPME EQUIPME PRSC FLW RATE ADMN SET A7003 YOUR YOUR SM VOL 2 PHARMACY PHARMACY NONFILTR [facility] PNEUMAT NEBULIZR DISPBL O2 CONC 1 E1390 [facility] [place] 2 HOME HOME 85%/>02 MEDICAL MEDICAL CONC AT EQUIPME EQUIPME PRSC FLW RATE ADMN SET A7003 YOUR YOUR SM VOL 2 PHARMACY PHARMACY NONFILTR [facility] PNEUMAT NEBULIZR DISPBL LOCM Q9967 [employer], 300-399 2 SIGNAL AND COMMUNICATIONS MAINTAINER SIGNAL AND COMMUNICATIONS MAINTAINER MG/ML JESSIE JESSIE IODINE CO HOS CO HOS CONCENTRA TION PER ML CTA ABDL 86406 [employer], AORTA&BI 2 SIGNAL AND COMMUNICATIONS MAINTAINER SIGNAL AND COMMUNICATIONS MAINTAINER ILIOFEM JESSIE JESSIE W/CONTRAS CO HOS CO HOS T&POSTP CREATININ 86309 [employer], E BLOOD 2 SIGNAL AND COMMUNICATIONS MAINTAINER SIGNAL AND COMMUNICATIONS MAINTAINER JESS[place] [address] [employer], UREA 2 SIGNAL AND COMMUNICATIONS MAINTAINER SIGNAL AND COMMUNICATIONS MAINTAINER NITROGEN JESSIE JESSIE QUANTITAT CO HOS CO [...] LLC TYPE INTERFCE REPL ONLY PAIR EVAL 52985 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 Y PROC BLOOD 57751 JESSIE ROMAN COUNT 2 CO CO [facility] AUTO&AUTO DIFRNTL WBC BASIC 35192 JESSIE ROMAN METABOLIC 2 CO CO [facility] CALCIUM TOTAL RADIOLOGI 01158 [facility] C EXAM 2 NGOZI CHEST 2 RADIOLOGY VIEWS ASSOCIAT FRONTAL&L ATERAL RADIOLOGI 91902 JESSIE ROMAN C 2 CO CO [facility] ON NECK SOFT TISSUE ADMN SET A7003 YOUR YOUR SM VOL 1 PHARMACY PHARMACY NONFILTR [email or web address] [facility] PNEUMAT NEBULIZR DISPBL IM ADM 42412 ANBEELTrever ARAGON PRQ ID 1 Apr SUBQ/IM NJXS 1 VACCINE IIV3 59901 NABEELN NABEELN VACCINE 1 Apr SPLIT VIRUS 0.5 ML DOSAGE IM USE CT SOFT 79884 AMATO AMATO TISSUE 1 JONATAN JONATAN NECK W/CONTRAS T MATERIAL CT THORAX 09251 [facility] 1 Y Y [facility] T MATERIAL ADMN SET A7003 YOUR YOUR SM VOL 1 PHARMACY PHARMACY NONFILTR [employer] [facility] PNEUMAT NEBULIZR DISPBL LOCM Q9967 [facility] 300-399 1 Y Y MG/ML [facility] IODINE CONCENTRA TION PER ML VISUAL 63240 [facility] FIELD XM 1 GRE GRE UNI/BI W/INTERP EXTENDED EXAM RADEX 72928 HAGISIDRO CRAIN SPINE 1 EIDER ULICES EIDER ULICES LUMBOSACR AL MINIMUM 4 VIEWS ADMN SET A7003 YOUR YOUR SM VOL 1 PHARMACY PHARMACY NONFILTR [facility] PNEUMAT NEBULIZR DISPBL RADIOLOGI 95586 JESSIE Jimenez EXAM 1 CO CO CHEST 2 [facility] VIEWS FRONTAL&L ATERAL PRESSURIZ 96820 CHENCHO ARAGON ED/NONPRE 1 CLINIC CECILIA SSURIZED [place] [address] [facility] FREE 1 Y Y THYROXINE HOSPITAL HOSPITAL COLLECTIO 63450 [facility] N VENOUS 1 Y Y BLOOD [facility] VENIPUNCT URE GENERAL 13371 [facility] 1 Y Y PANEL [facility] 12793 MEADOWVIE MEADOWVIE SIVE 1 W W METABOLIC [facility] PANEL MEDICAL MEDICAL COLLECTIO 25510 MEADOWVIE MEADOWVIE N VENOUS 1 W W BLOOD [facility]AL REGIONAL [place] [address] MEADOWVIE MEADOWVIE FREE 1 W W THYROXINE [facility] [address] MEADOWVIE MEADOWVIE THYROID 1 W W STIMULATI [facility] REGIONAL NG MEDICAL MEDICAL HORMONE TSH BLOOD 15643 MEADOWVIE MEADOWVIE COUNT 1 W W COMPLETE [facility] REGIONAL AUTOMATED MEDICAL MEDICAL LARYNGOSC 01158 TIFFANIE BRUMFIELD OPY 1 MEDICAL FLEXIBLE SERV DIAGNOSTI FOUNDATIO C PET 16518 [facility] CT RADIOLOGY ATTENUATI ASSOCIAT [place] [address] JESSIE ROMAN THYROID 1 CO CO STIMULATI [facility] [place] [address] JESSIE ROMAN THYROXINE 1 CO CO TOTAL [facility] [place] [address] LABONE OF LABONE OF THYROID 1 [facility] [place] [address] [facility] UREA 1 Y Y NITROGEN HOSPITAL [facility] QUANTITAT [place] CREATININ 13251 [facility] E BLOOD 1 Y Y HOSPITAL HOSPITAL LARYNGOSC 90787 TIFFANIE FROST OPY 1 MEDICAL CECILIA FLEXIBLE SERV DIAGNOSTI FOUNDATIO C COLLECTIO 17477 [facility] N VENOUS 1 Y Y BLOOD [facility] VENIPUNCT URE CT SOFT 95326 [facility] FABIENNE TISSUE 1 Y NECK HOSPITAL W/CONTRAS T MATERIAL CT THORAX 78963 [facility] 1 Y Y W/[facility] T MATERIAL COLLECTIO 66538 NIKITA SHELTON N VENOUS 1 W W BLOOD [facility] REGIONAL VENIPUNCT MEDICAL MEDICAL URE COMPREHEN 43730 NIKITA SHELTON SIVE 1 W W METABOLIC [facility] [place] [address] NIKITA SHELTON THYROID 1 W W STIMULATI [facility]AL [place] [address] NIKITA HILLWALFONSO FREE 1 W W THYROXINE [facility] MEDICAL MEDICAL BLOOD 77254 NIKITA HILLWALFONSO COUNT 1 W W COMPLETE [facility] [place] [address] KUSH CURRI[address] SWALLOWIN [address] [facility] DYSFUNCTI ON&/[place] [address] [address] [facility] DYSFUNCTI ON&/[place] [address] [address]AMI CURRIE [address] [facility] DYSFUNCTI ON&/[place] [address] LABONE OF LABONE OF THYROID 1 [facility] STIMULATI NG HORMONE TSH COLLECTIO [address] N VENOUS 1 ETH[place] [address] [address]AMI CURRIE [address] [facility] DYSFUNCTI ON&/[place] [address] CURRIETAMI CURRIE SWALLOWIN 1 [facility] DYSFUNCTI ON&/[place] [address] LABONE OF LABONE OF THYROID 1 [facility] [place] [address] CURRIE CURRIE SWALLOWIN 1 [facility] DYSFUNCTI ON&/[place] [address] [address]RIE [address]OWIN [address] [facility] DYSFUNCTI ON&/ORAL FUNCJ FEEDING LARYNGOSC 80548 [place] SANT[facility] OPY 1 MEDICAL CECILIA [place]LEX[place] [address] KUSH CURRIE SWALLOWIN 0 [facility] DYSFUNCTI ON&/[place] [address] KUSH CURRIE SWALLOWIN 0 [facility] DYSFUNCTI ON&/[place] [address] NIKITA SHELTON THYROID 0 W W STIMULATI [facility] [place] [address] NIKITA HILLWALFONSO FREE 0 W W THYROXINE [facility] MEDICAL BLOOD 00818 NIKITA MEADOWVIE COUNT 0 W W COMPLETE [facility] AUTOMATED MEDICAL MEDICAL COLLECTIO 71791 NIKITA SHELTON N VENOUS 0 W W BLOOD [facility] VENIPUNCT MEDICAL MEDICAL URE COMPREHEN 16171 NIKITA SHELTON SIVE 0 W W METABOLIC [facility] [place] [address] KUSH CURRIE SWALLOWIN 0 [facility] DYSFUNCTI ON&/[place] [address] KUSH CURRIE SWALLOWIN 0 [facility] DYSFUNCTI ON&/[place] [address] KUSH CURRIE SWALLOWIN 0 [facility] DYSFUNCTI ON&/[place] [address] KUSH CURRIE SWALLOWIN 0 [facility] DYSFUNCTI ON&/[place] [address] KUSH CURRIE SWALLOWIN 0 [facility] DYSFUNCTI ON&/[place] [address] KUSH CURRIE SWALLOWIN 0 [facility] DYSFUNCTI ON&/ORAL FUNCJ FEEDING TAPE A4450 KUSH CURRIE NON-WATER 0 CO HOSP CO HOSP PROOF PER MED EQUIP MED EQUIP 18 & & SQUARE INCHES GAUZE A6402 KUSH CURRIE NON-IMPRE 0 CO HOSP CO HOSP G STERL MED EQUIP MED EQUIP 16 SQ/< & & W/O ADHES BORDR ENTERAL B4034 KUSH CURRIE FEEDING 0 CO HOSP ND HOSP SUPPLY MED EQUIP MED EQUIP KIT; & [place] [address] KUSH CURRIE SWALLOWIN 0 [facility] DYSFUNCTI ON&/[place] [address] KUSH CURRIE SWALLOWIN 0 [facility] DYSFUNCTI ON&/[place] [address] [facility] SWALLOWIN 0 [facility] DYSFUNCTI ON&/[place] [address] [facility] SWALLOWIN 0 [facility] DYSFUNCTI ON&/[place] [address] [facility] [address] [facility] [employer] [place] [address] [facility] [address] [facility] DYSFUNCTI ON&[place] [address] [facility] SWALLOWIN 0 [facility] DYSFUNCTI ON&/[place] [address] [facility] SWALLOWIN 0 [facility] DYSFUNCTI ON&/[place] [address] [facility] SWALLOWIN 0 [facility] DYSFUNCTI ON&/[place] [address] [facility] [address] [facility] DYSFUNCTI ON&/ORAL FUNCJ FEEDING ENTERAL B4034 [facility] SUPPLY MED EQUIP MED EQUIP KIT; & & SYRINGE FED PER DAY TAPE [id number] [facility] NON-WATER 0 [facility] PROOF PER MED EQUIP MED EQUIP 18 & & [place] [address] [facility] SWALLOWIN 0 [facility] DYSFUNCTI ON&/[place] [address] [facility] IRON 0 [facility] PREALBUMI 18769 [facility] N 0 [place] [address] [facility] CHLOE ZINC 0 JESSIE ROMAN [facility] 312[address] [facility] HEALTH 0 [facility] PANEL CYANOCOBA 41132 [facility] JENNY 0 [facility] VITAMIN B-[place] [address] [facility] FOLIC 0 [facility] [place] [address] [facility] SWALLOWIN 0 CO CO [facility] DYSFUNCTI ON&/ORAL FUNCJ FEEDING CULTURE 35251 JESSIE ROMAN BACTERIAL 0 CO CO [facility] QUANTTATI VE COLONY COUNT URINE ANTIBODY 59937 JESSIE ROMAN HELICOBAC [address] [facility] PYLORI BLOOD 60223 JESSIE ROMAN COUNT 0 CO CO SMEAR [facility] MCRSCP W/[place] [address] JESSIE ROMAN LIPASE [address] [facility] COMPREHEN 88380 JESSIE ROMAN SIVE 0 CO CO METABOLIC [facility] PANEL URNLS DIP 88506 JESSIE LABORATOR 0 CO Y STICK/TAB [facility]OSPITAL CORPORATI LET ON OF [place] [address] JESSIE ROMAN AMYLASE 0 CO [facility] COLLECTIO 61017 JESSIE LABORATOR N VENOUS 0 CO Y BLOOD [facility] CORPORATI VENIPUNCT ON OF AM URE THER 29368 JESSIE ROMAN PROPH/DX 0 CO CO NJX IV [facility] PUSH SINGLE/1S T SBST/[place] [address] [facility] SWALLOWIN 0 CO CO [facility] DYSFUNCTI ON&/[place] [address] K[facility] CURRIE SWALLOWIN 0 CO CO [facility] DYSFUNCTI ON&/[place] [address] [facility] SWALLOWIN 0 CO CO [facility] DYSFUNCTI ON&/ORAL FUNCJ FEEDING MOTION 44285 K[facility] CURRIE FLUOR 0 CO CO [facility] SWLNG FUNCJ C/V REC SWALLOWIN 554[address] JESSICA WELDON FUNCJ 0 NGOZI W/CINERAD RADIOLOGY IOGRAPY/[place] [address] [facility] CO CO G [facility] DYSFUNCTI ON&/ORAL FUNCJ FEEDING EVAL 57956 [facility] CURRIE ORAL&PHAR 0 CO CO YNGEAL [facility] SWLNG FUNCJ BLOOD 53994 NIKITA HILLWALFONSO COUNT 0 W W COMPLETE [facility] AUTOMATED MEDICAL MEDICAL COLLECTIO 41917 NIKITA SHELTON N VENOUS 0 W W BLOOD [facility] [place] [address] JESSIE JESSIE INFUSION 0 CO CO HYDRATION [facility] INITIAL 31 MIN-1 [place] [address] [facility] HYDRATION [facility] [place] [address] JESSIE JESSIE INFUSION 0 CO CO THERAPY/P [facility] ROPHYLAXI S /DX 1ST TO 1 HR LARYNGOSC 94195 [facility] OPY W/WO 0 Y Y TRACHEOSC [facility] OPY W/MICRO/T ELESCOPE ANES [address] [place] ESOPH 0 MEDICAL CORY THYRD SERV LARYNX FOUNDATIO TRACH & LYMPH NECK 1YR ESOPHAGOS 64967 [place] COPY 0 MEDICAL CECILIA FLEXIBLE SERV TRANSORAL FOUNDATIO DIAGNOSTI C DILATION 97686 [facility] ESOPH 0 Y Y UNGUIDED [facility] SOUND/YVETTE GIE 1/MULT PASS RINGERS J7120 [facility] LACTATE 0 Y Y INFUSION [facility] UP TO 1000 CC INJECTION J2250 [facility] 0 Y Y MIDAZOLAM [facility] HCL PER 1 MG INJECTION J1100 [facility] 0 Y Y DEXAMETHO [facility] SONE SODIUM PHOSPHATE 1 MG INJECTION J2710 [facility] 0 Y Y NEOSTIGMI [facility] NE METHYLSUL FATE UP TO 0.5 MG INJECTION J3010 [facility] FENTANYL 0 Y Y CITRATE [facility] 0.1 MG INJECTION J0330 [facility] 0 Y Y SUCCINYLC [facility] HOLINE CHLORIDE UP TO [address] SOFT 98113 [facility] TISSUE 0 Y Y NECK [facility] W/CONTRAS T MATERIAL COLLECTIO 72230 [facility] N VENOUS 0 Y Y BLOOD [facility] VENIPUNCT URE CT THORAX 70745 [facility] 0 Y Y W/CONTRAS [facility] T MATERIAL CREATININ 42246 [facility] E BLOOD 0 Y Y [facility] [place] [address] [facility] UREA 0 Y Y NITROGEN [facility] QUANTITAT [place] MOTION 08248 [facility] FLUOR 0 CO CO EVAL [facility] SWLN FUNCJ C/V REC SWALLOWIN 42379 JESSICA Benson FUNCJ 0 NGOZI W/CINERAD RADIOLOGY IOGRAPY/[place] [address] JESSIE ROMAN INFUSION 0 CO CO THERAPY/P [facility] ROPHYLAXI S /DX 1ST TO 1 [place] [address] JESSIE ROAMN INFUSION 0 CO CO THERAPY [facility] [place] [address] JESSIE ROMAN INFUSION 0 CO CO THERAPY [facility] [place] [address] JESSIE BURRELLS INFUSION 0 CO CO THERAPY/P [facility] ROPHYLAXI S /DX 1ST TO [place] [address] JESSIE ROMAN INFUSION 0 CO CO THERAPY/P [facility] ROPHYLAXI S /DX 1ST TO [place] [address] JESSIE BURRELLS INFUSION 0 CO CO THERAPY [facility] [place] [address] JESSIE BURRELLS INFUSION 0 CO CO THERAPY/P [facility] ROPHYLAXI S /DX 1ST TO [place] [address] JESSIE BURRELLS INFUSION 0 CO CO THERAPY [facility] PROPHYLAX IS/DX EA HOUR BLOOD 89874 JESSIE ROMAN COUNT 0 CO CO COMPLETE [facility] AUTO&AUTO DIFRNTL WBC CULTURE 53464 JESSIE ROMAN BACTERIAL 0 CO ND BLOOD [facility] AEROBIC W/ID ISOLATES RADIOLOGI 72033 JESSIE ROMAN C EXAM 0 CO CO CHEST 2 HOSPITAL HOSPITAL VIEWS FRONTAL&L ATERAL COLLECTIO 98713 JESSIE ROMAN N VENOUS 0 CO [facility] ER VENIPUNCT URE URNLS DIP 82562 JESSIE JESSIE 0 CO CO STICK/TAB HOSPITAL HOSPITAL LET REAGENT AUTO MICROSCOP Y COMPREHEN 71527 JESSIE SANCHEZOLAS SIVE 0 CO CO METABOLIC [facility] PANEL RESP E0600 NAOMIE NAOMIE SUCTION 0 HOME MED HOME MED PUMP HOME EQUIP. L EQUIP. L MODEL PRTBLE/ST ATION ELEC TAPE A4450 CURRIE CURRIE NON-WATER 0 CO HOSP CO HOSP PROOF PER MED EQUIP MED EQUIP 18 & & SQUARE INCHES COMPREHEN 75059 MEADOWVIE MEADOWVIE SIVE 0 W W METABOLIC [facility] CENTER COLLECTIO 44854 JESSICAANGELA LOPEZWVIE N VENOUS 0 W W BLOOD [facility] VENIPUNCT [facility] CENTER BLOOD 29131 MEADOWVIE MEADOWVIE COUNT 0 W W SURGERY [facility] [place] [address] ONCOLOGY JAJA, INFUSION 0 HEMATOLOG BRITTANY M HYDRATION Y CARE INITIAL INC 31 MIN-1 HOUR BLOOD 71751 CURRIE CURRIE COUNT 0 CO [facility] AUTO&AUTO DIFRNTL WBC COMPREHEN 47402 [place]USH CURRIE SIVE 0 CO [facility] PANEL RADEX 82742 [facility] SPINE 0 EIDER, LUMBOSACR RADIOLOGY NANDINI AL 2/3 K VIEWS ASSOCIATE S PSC SBSQ 06386 [facility] 0 CLINIC CHAMP CARE/DAY PSC 15 MINUTES RADIOLOGI 12354 EMILIANOBarbara GALO EXAM 0 CCEI C CHEST 2 RADIOLOGY VIEWS FRONTAL&L ASSOCIATE ATERAL S PSC OBSERVATI 55292 [facility] ON CARE 0 , MINOR , MINOR DISCHARGE MANAGEMEN T INITIAL 22255 [facility] OBSERVATI 0 , MINOR , MINOR ON CARE/DAY 70 MINUTES HOSPITAL [id number] JESSIE ROMAN OBSERVATI 0 CO CO ON HOSPITAL HOSPITAL SERVICE PER HOUR RADEX 40991 [place], ABDOMEN 1 0 CECI Jimenez RADIOLOGY ANTEROPOS TERIOR ASSOCIATE VIEW S PSC RADEX ABD 33099 JESSIE ROMAN COMPL 0 CO CO AQT ABD [facility] W/S/E/D VIEWS 1 VIEW CH COLLECTIO 43399 JESSIE ROMAN N VENOUS 0 CO CO BLOOD [facility] VENIPUNCT URE RADIOLOGI 50165 [place] SHIRAZ, C 0 CECI Jimenez EXAMINATI RADIOLOGY ON CHEST SINGLE ASSOCIATE VIEW S PSC FRONTAL COMPREHEN 58858 JESSIE ROMAN SIVE 0 CO CO METABOLIC [facility] PANEL BLOOD 52761 JESSIE ROMAN COUNT 0 CO CO COMPLETE [facility] AUTO&AUTO DIFRNTL WBC BLOOD 32340 JESSIE ROMAN COUNT 0 CO CO SMEAR [facility] MCRSCP W/MNL DIFRNTL WBC COUNT THROMBOPL 41671 JESSIE ROMAN ASTIN 0 CO CO TIME [facility] PARTIAL PLASMA/WH OLE BLOOD PROTHROMB 19564 JESSIE ROMAN IN TIME 0 CO [place] [address] JESSIE ROMAN INFUSION 0 CO CO THERAPY/P HOSPITAL [facility] ROPHYLAXI S /DX 1ST TO 1 HR THER 19698 JESSIE ROMAN PROPH/DX 0 CO CO NJX IV [facility] PUSH SINGLE/1S T SBST/[place] [address] JESSIE ROMAN INFUSION 0 CO CO HYDRATION [facility] INITIAL 31 MIN-1 HOUR RADJ DLVR 53554 [place] INA 3/> 0 MEDICAL PRA AREAS SERV CUSTOM FOUNDATIO BLKING 6-10MEV RADJ DLVR 98273 [place] INA 3/> 0 MEDICAL PRA AREAS SERV CUSTOM FOUNDATIO BLKING 6-10MEV RADIATION 08275 [place] INA 0 MEDICAL PRA TREATMENT SERV FOUNDATIO MANAGEMEN T 5 TREATMENT S RADJ DLVR 58492 [place] I[place] 3/> 0 MEDICAL PRA AREAS SERV CUSTOM FOUNDATIO BLKING 6-10MEV RADJ DLVR 13347 [place] I[place] 3/> 0 MEDICAL PRA AREAS SERV CUSTOM FOUNDATIO BLKING 6-10MEV THERAPEUT 26231 [place] I[place] IC 0 MEDICAL PRA RADIOLOGY SERV PORT FOUNDATIO IMAGES(S) RADIATION 80996 [place] INA 0 MEDICAL PRA TREATMENT SERV FOUNDATIO MANAGEMEN T 5 TREATMENT S COMPREHEN 58931 NIKITA LOPEZWALFONSO SIVE 0 W W METABOLIC [facility] CENTER COLLECTIO 95508 JESSICAANGELA LOPEZWVIE N VENOUS 0 W W BLOOD [facility] CONTINUIN 70777 [place] I[place] G MEDICAL 0 MEDICAL PRA PHYSICS SERV CONSLTJ [place]OUNDATIO [place] THERAPEUT 34761 ONCOLOGY JAJA CHR IC 0 HEMATOLOG INJECTION Y [place] [address] ONCOLOGY JAJA CHR INFUSION 0 HEMATOLOG THER Y CARE IN PROPH ADDL SEQUENT[place] L [place] 1 [place] [address] ONCOLOGY JAJA CHR INFUSION 0 HEMATOLOG HYDRATION Y CARE IN EACH ADDITIONA L HOUR BLOOD 81062 NIKITA SHELTON COUNT 0 W W COMPLETE [facility] CENTER INJECTION J2469 ONCOLOGY ONCOLOGY 0 HEMATOLOG HEMATOLOG [place] Y CARE IN Y CARE IN OCTAVIANO HCL 25 MCG INJECTION J9060 ONCOLOGY JAJA CHR 0 HEMATOLOG CISPLATIN Y CARE IN POWDER OR SOLUTION 10 MG CHEMOTX 48187 ONCOLOGY JAJA CHR ADMN IV 0 HEMATOLOG NFS TQ UP Y CARE IN 1 HR SBST/DRUG RADJ DLVR 34934 [place] INA 3/> 0 MEDICAL PRA AREAS SERV CUSTOM FOUNDATIO BLKING 6-10MEV RADJ DLVR 99283 [place] I[place] 3/> 0 MEDICAL PRA AREAS SERV CUSTOM FOUNDATIO BLKING 6-10MEV CONTINUIN 80023 [place] I[place] G MEDICAL 0 MEDICAL PRA PHYSICS SERV CONSLTJ FOUNDATIO [place] RADJ DLVR 51950 [place] I[place] 3/> 0 MEDICAL PRA AREAS SERV CUSTOM FOUNDATIO BLKING 6-10MEV RADJ DLVR 55546 [place] I[place] 3/> 0 MEDICAL PRA AREAS SERV CUSTOM FOUNDATIO BLKING 6-10MEV RADJ DLVR 62635 [place] I[place] 3/> 0 MEDICAL PRA AREAS SERV CUSTOM FOUNDATIO BLKING 6-10MEV RADIATION 50243 [place] INA 0 MEDICAL PRA TREATMENT SERV FOUNDATIO MANAGEMEN T 5 TREATMENT S RADJ DLVR 40268 [place] I[place] 3/> 0 MEDICAL PRA AREAS SERV CUSTOM FOUNDATIO BLKING 6-10MEV GENERAL 35512 [facility] 0 [facility] INC PANEL LIPID 98744 [facility] PANEL 0 [facility] INC RADJ DLVR 77038 [place] I[place] 3/> 0 MEDICAL PRA AREAS SERV CUSTOM FOUNDATIO BLKING 6-10MEV BASIC 52309 [place] I[place] RADIATION 0 MEDICAL PRA SERV DOSIMETRY FOUNDATIO CALCULATI ON TELETHERA 35218 [place] PY 0 MEDICAL PRA ISODOSE SERV PLAN FOUNDATIO COMPLETE THER RAD 29205 [place] SIMULAJ-A 0 MEDICAL PRA IDED SERV FIELD FOUNDATIO SETTING SIMPLE CONTINUIN 79466 [place] I[place] G MEDICAL 0 MEDICAL PRA PHYSICS [place] [address] [place] I[place] DEVICES 0 MEDICAL PRA DESIGN & SERV CONSTRUCT FOUNDATIO ION COMPLEX RADJ DLVR 19081 [place] INA 3/> 0 MEDICAL PRA AREAS SERV CUSTOM FOUNDATIO BLKING 6-10MEV RADIATION 44961 [place] INA 0 MEDICAL PRA TREATMENT SERV FOUNDATIO MANAGEMEN T 5 TREATMENT S RADJ DLVR 56505 [place] ZHANE, 3/> 0 MEDICAL DAVID AREAS SERV CUSTOM FOUNDATIO BLKING 6-10MEV RADJ DLVR 76624 [place] ZHANE, 3/> 0 MEDICAL DVAID AREAS SERV CUSTOM FOUNDATIO BLKING 6-10MEV CONTINUIN 19491 [place] I[place] G MEDICAL 0 MEDICAL PRA PHYSICS SERV CONSLTJ FOUNDATIO [place] RADJ DLVR 49222 [place] I[place] 3/> 0 MEDICAL PRA AREAS SERV CUSTOM FOUNDATIO BLKING 6-10MEV RADIATION 99864 [place] INA 0 MEDICAL PRA TREATMENT SERV FOUNDATIO MANAGEMEN T 5 TREATMENT S RADJ DLVR 91653 [place] I[place] 3/> 0 MEDICAL PRA AREAS SERV CUSTOM FOUNDATIO BLKING 6-10MEV COMPREHEN 65414 MEADOWVIE MEADOWVIE SIVE 0 W W [facility] BASIC 42989 [place] I[place] RADIATION 0 MEDICAL PRA SERV DOSIMETRY FOUNDATIO CALCULATI ON TELETHERA 81779 [place] I[place] PY 0 MEDICAL PRA ISODOSE SERV PLAN FOUNDATIO COMPLETE COLLECTIO 91730 MEADALIAALFONSO LOPEZWVIE N VENOUS 0 W W BLOOD [facility] B[facility] 93339 MEADOWVIE MEADOWVIE COUNT 0 W W COMPLETE [facility] C[facility] RADJ DLVR 55085 [place] I[place] 3/> 0 MEDICAL PRA AREAS SERV CUSTOM FOUNDATIO BLKING 6-10MEV RADJ DLVR 91632 [place] I[place] 3/> 0 MEDICAL PRA AREAS SERV CUSTOM FOUNDATIO BLKING 6-10MEV LARYNGOSC 96572 [place] OPY 0 MEDICAL , HANNAH FLEXIBLE SERV DIAGNOSTI FOUNDATIO C RADJ DLVR 27587 [place] I[place] 3/> 0 MEDICAL PRA AREAS SERV CUSTOM FOUNDATIO BLKING 6-10MEV RADJ DLVR 58891 [place] I[place] 3/> 0 MEDICAL PRA AREAS SERV CUSTOM FOUNDATIO BLKING 6-10MEV THERAPEUT 74268 [place] I[place] IC 0 MEDICAL PRA RADIOLOGY SERV PORT FOUNDATIO IMAGES(S) CONTINUIN 02721 [place] I[place] G MEDICAL 0 MEDICAL PRA PHYSICS SERV CONSLTJ FOUNDATIO [place] RADJ DLVR 37221 [place] I[place] 3/> 0 MEDICAL PRA AREAS SERV CUSTOM FOUNDATIO BLKING 6-10MEV RADIATION 74431 [place] INA 0 MEDICAL PRA TREATMENT SERV FOUNDATIO MANAGEMEN T 5 TREATMENT S RADJ DLVR 38756 [place] I[place] 3/> 0 MEDICAL PRA AREAS SERV CUSTOM FOUNDATIO BLKING 6-10MEV RADJ DLVR 73978 [place] I[place] 3/> 0 MEDICAL PRA AREAS SERV CUSTOM FOUNDATIO BLKING 6-10MEV RADJ DLVR 19708 [place] I[place] 3/> 0 MEDICAL PRA AREAS SERV CUSTOM FOUNDATIO BLKING 6-10MEV RADJ DLVR 09791 [place] INA 3/> 0 MEDICAL PRA AREAS SERV CUSTOM FOUNDATIO BLKING 6-10MEV THERAPEUT 11967 [place] I[place] IC 0 MEDICAL PRA RADIOLOGY SERV PORT FOUNDATIO IMAGES(S) CONTINUIN 22066 [place] G MEDICAL 0 MEDICAL PRA PHYSICS SERV CONSLTJ FOUNDATIO [place] RADIATION 85950 [place] INA 0 MEDICAL PRA TREATMENT SERV FOUNDATIO MANAGEMEN T 5 TREATMENT S RADJ DLVR 27696 [place] I[place] 3/> 0 MEDICAL PRA AREAS SERV CUSTOM FOUNDATIO BLKING 6-10MEV RADJ DLVR 75859 [place] I[place] 3/> 0 MEDICAL PRA AREAS SERV CUSTOM FOUNDATIO BLKING 6-10MEV RADJ DLVR 90202 [place] I[place] 3/> 0 MEDICAL PRA AREAS SERV CUSTOM FOUNDATIO BLKING 6-10MEV RADJ DLVR 48606 [place] I[place] 3/> 0 MEDICAL PRA AREAS SERV CUSTOM FOUNDATIO BLKING 6-10MEV RADJ DLVR 01056 [place] 3/> 0 MEDICAL PRA AREAS SERV CUSTOM FOUNDATIO BLKING 6-10ME[place] [address] [place] I[place] DEVICES 0 MEDICAL PRA DESIGN & SERV CONSTRUCT FOUNDATIO ION COMPLEX THER RAD 68693 [place] SIMULAJ-A 0 MEDICAL PRA IDED SERV FIELD FOUNDATIO SETTING SIMPLE RADIATION 26472 [place] INA 0 MEDICAL PRA TREATMENT SERV FOUNDATIO [place]GEMEN T [address] [place] [address] [place] MOJGAN GUIDANCE 0 MEDICAL EDU RADIATION SERV THERAPY FOUNDATIO FLDS PLACEMENT CONTINUIN 97399 [place] G MEDICAL 0 MEDICAL PRA PHYSICS SERV CONSLTJ FOUNDATIO [place] ANES 58780 [place] VITAL STEVIE ESOPH 0 MEDICAL THYRD SERVICES LARYNX TRACH & LYMPH NECK 1YR LARYNGOSC 14668 [place] OPY 0 MEDICAL CECILIA W/BIOPSY SERV MICROSCOP FOUNDATIO E/TELESCO PE EGD 36203 [place] CHRISTINA PERCUTANE 0 MEDICAL RICH OUS SERV PLACEMENT [place] [address] [place] HDZ SURG 0 MEDICAL VARGAS PATHOLOGY SERV FOUNDATIO GROSS&KAMILA ROSCOPIC EXAM L HRT 32345 [place] LINO CATHETERI 0 MEDICAL CALEB ZATION SERV RETROGRAD FOUNDATIO E BRACHIAL PERQ INJECTION 56990 [place] CARDIAC 0 MEDICAL CALEB CATHJ L SERV VENTR/L [place] [address] [place] C-CATHJ 0 MEDICAL CALEB F/SLCTV C SERV ANGRPH FOUNDATIO I SI&R 92170 [place] F/NJX PX 0 MEDICAL CALEB DURING SERV C-CATHJ FOUNDATIO VENTR&/AT R ANGRPH I SI&R 07818 [place] F/NJX PX 0 MEDICAL CALEB DURING SERV C-CATHJ FOUNDATIO PULM&/OR SELECT ECG 95946 [facility]IVERS UNIVERS ROUTINE 0 Y Y ECG HOSPITAL HOSPITAL W/LEAST 12 LDS TRCG ONLY W/O I&R ECG 64402 [place] MOJICA ROUTINE 0 MEDICAL NAN ECG SERV W/LEAST FOUNDATIO 12 LDS I&R ONLY CT SOFT 03626 [place] AMATO TISSUE 0 MEDICAL JONATAN NECK SERV W/CONTRAS FOUNDATIO T MATERIAL CT THORAX 38349 [place] ATTILI 0 MEDICAL ANI W/CONTRAS SERV T FOUNDATIO MATERIAL COLLECTIO 71435 [facility] N VENOUS 0 Y Y BLOOD [facility] VENIPUNCT URE COMPREHEN 77870 [facility] SIVE 0 Y Y METABOLIC [facility] PANEL BLOOD 86294 [facility] COUNT 0 Y Y COMPLETE [facility] AUTOMATED PROTHROMB 75540 [facility] IN TIME 0 Y Y [facility] THROMBOPL 42547 [facility] ASTIN 0 Y Y TIME [facility] PARTIAL PLASMA/[place] [address] [facility] FREE 0 Y Y THYROXINE [facility] [address] [facility] THYROID 0 Y Y STIMULATI [facility] NG [place] [address] THORAX [address] [place] [address] JOAQUÍN S W/CONTRAS RADIOLOGY T MATERIAL ASSOCIATE S PSC ADMN SET A7003 YOUR YOUR SM VOL 8 PHARMACY PHARMACY NONFILTR [facility] PNEUMAT NEBULIZR DISPBL THER 92720 JESSIE ROMAN PROPH/DX 8 [facility] SUBQ/IM THER 81133 JESSIE ROMAN PROPH/DX 8 [facility] SUBQ/IM THER 67676 JESSIE ROMAN PROPH/DX 8 [facility] SUBQ/IM RADIOLOGI 84350 JESSIE ROMAN C EXAM 8 [facility] CHEST [address] [place] [address] VIEWS FRONTAL&L ATERAL O2 CONC 1 E1390 [facility] 8 HOME MED HOME MED 85%/>02 EQUIP. EQUIP. CONC AT [employer] [facility] FLW RATE O2 CONC 1 E1390 [facility] 8 HOME MED HOME MED 85%/>02 EQUIP. EQUIP. CONC AT [employer] [facility] FLW RATE O2 CONC 1 E1390 [facility] 8 HOME MED HOME MED 85%/>02 EQUIP. EQUIP. CONC AT [employer] [facility] FLW RATE LIPID 40041 [facility] PANEL 8 [facility] CYANOCOBA 72781 [facility] JENNY 8 [facility] VITAMIN B-12 COMPREHEN 00999 [facility] SIVE 8 [facility] [place] [address] [facility] THYROID 8 [facility] STIMULATI NG HORMONE TSH THER 22051 JESSIE ROMAN PROPH/DX 8 CO CO NJX [facility] SUBQ/IM ECG 67644 JESSIE ROMAN ROUTINE 8 CO ND ECG [facility] W/LEAST 12 LDS TRCG ONLY W/O I&R DEMO&/VINICIO 93650 JESSIE ROMAN L OF PT 8 CO ND UTILIZ [facility] AERSL GEN/NEB/I NHLR/[place] [address] JESSIE ROMAN WALL 8 [facility] FACILITAT [facility] E LNG FUNCJ 1 DEMO&/VINICIO L O2 CONC 1 E1390 [facility] PORT 8 HOME MED HOME MED 85%/>02 EQUIP. EQUIP. CONC AT Yodo1 [facility] FLW RATE ADMN SET A7005 YOUR YOUR W/SM VOL 8 PHARMACY [facility]Y [facility] NEBUL[facility] NON-DISPB L O2 CONC 1 E1390 [facility] PORT 8 HOME MED HOME MED 85%/>02 EQUIP. EQUIP. CONC AT Yodo1 [facility] FLW RATE ADMN SET A7003 YOUR YOUR SM VOL 8 PHARMACY PHARMACY NONFILTR [facility] PNEUMAT NEBULIZR DISPBL O2 CONC 1 E1390 [facility] 8 HOME MED HOME MED 85%/>02 EQUIP. EQUIP. CONC AT [employer] PRS FLW RATE Encounters Encounter Start End Date Code Location Performer Type Date OFFICE 49007 [facility] OUTPATIEN 7 7 PHYSICIAN T VISIT S GROUP 15 MINUTES [facility] [place] - 7 7 [facility] EMER[facility]ENCY 76143 [place] [facility] 7 7 [facility] HIGH SEVERITY& THREAT [facility] - 7 7 [facility] HOSP[facility] [place] [facility] - 7 7 [facility] [place] [facility] - 7 7 [facility] [address] INPATIENT HOSPITAL [facility] 7 7 [facility] HOSPITAL EMERGENCY 64539 [facility] 7 7 DESIRE VISIT EMERGENCY HIGH PHYS SEVERITY& THREAT [facility] [address] [facility] [place] - 7 7 [facility] HOSPITAL [facility]OME[facility] - 7 [facility] 11385 [facility] 7 7 PHYSICIAN T VISIT S GROUP 15 MINUTES OFFICE 52244 [facility] 7 7 [facility] T VISIT INC 10 MINUTES HOSPITAL [facility] - 7 [facility] OFF[facility] 16494 [facility] 7 7 MD SUNNY, T VISIT PSC 15 MINUTES OFFICE 77948 [facility] 7 7 PHYSICIAN T VISIT S GROUP 15 MINUTES HOSPITAL [place] [address] 7 [facility] OUTPATIEN [facility]PITAL [place] - 7 [facility] T EMERGENCY [address] T VISIT HIGH/URGE NT SEVERITY EMERGENCY [address] T VISIT HIGH/URGE NT SEVERITY HOSPITAL [place] [address] 7 [facility] T EMERGENCY 73330 [facility] 7 7 DESIRE VISIT EMERGENCY HIGH PHYS SEVERITY& THREAT FUNCJ OFFICE 56290 [facility] [place] OUTPATIEN 7 7 PHYSICIAN T VISIT S GROUP 15 MINUTES HOSPITAL [facility] - 7 7 [facility] OUTPATIEN INC T [facility]PITAL [facility] - 7 7 [facility]PATIEN INC T [facility]OSPITAL [facility] - 7 7 [facility] OUTPATIEN INC T OFFICE 04655 [facility] [place] OUTPATIEN 7 7 PHYSICIAN T VISIT S GROUP 25 MINUTES OFFICE 69927 [facility]IEN 7 7 [facility] T VISIT INC 10 MINUTES HOSPITAL [facility] - 7 7 [facility] OUTPATIEN INC T OFFICE 09449 [facility] [place] OUTPATIEN 7 7 PHYSICIAN T VISIT S GROUP 25 MINUTES HOSPITAL [facility] - 7 7 [facility] OUTPATIEN INC T OFFICE 37144 [facility] 7 7 MD SUNNY, T VISIT PSC 15 MINUTES [facility]OSPITAL [facility] - 7 7 [facility] OUTPATIEN INC T OFFICE 67463 [facility] 7 7 [facility] T VISIT INC 10 MINUTES OFFICE 13022 [facility] [place] OUTPATIEN 6 6 PHYSICIAN T VISIT S GROUP 15 MINUTES HOSPITAL [facility] - 6 6 [facility] OUTPATIEN INC T OFFICE 29332 [facility] [place] OUTPATIEN 6 6 PHYSICIAN KAMILA T VISIT S GROUP 15 MINUTES [facility]OSP[facility] - 6 6 [facility] OUTPATIEN INC T [facility] - 6 6 [facility] OUTPATIEN INC T OFFICE 10272 ALONDRA KOEHLER OUTPATIMOJGAN 6 6 MD T VISIT 10 MINUTES HOSPITAL [facility] - 6 6 [facility] OUTPATIEN [facility] T OFFICE 10805 [facility] 6 6 PHYSICIAN KAMILA T VISIT S GROUP 25 MINUTES OFFICE 76988 [facility] OUT[facility] 6 6 PHYSICIAN KAMILA T [facility]ISIT S GROUP 15 MINUTES [facility] OFFICE 59650 [facility] OUT[facility]IEN 6 6 [facility] T NEW 10 INC [facility] 6 6 [facility]EN [facility] CURRIE - 6 6 [facility] T OFF[facility] 17799 [facility] PHYSIC[facility] T VISIT S GROUP 15 MINUTES OFFICE 29697 [facility] 6 6 Y MEDICAL MU T VISIT CLINIC 15 [facility] - 6 6 [facility] 09950 [facility] 6 6 [facility] HIGH SEVERITY& THREAT [facility] CURRIE - 6 6 [facility] T OFFICE 13460 [facility] 6 6 PHYSICIAN KAMILA T [facility]ISIT S GROUP 15 MINUTES [facility] 6 6 [facility] [address] [facility] - 6 6 [facility] T OFF[facility] 09641 [facility] 6 Y T [facility]ISIT 5 [facility] CURRIE - [address] [facility] 6 6 [facility] T OFFICE 94319 [facility] OUTPATIEN 6 6 PHYSICIAN KAMILA T [facility]ISIT S GROUP 15 MINUTES [facility], 6 6 [facility] IN[facility]IENT [facility] OFF[facility] 46863 [facility] OUTPATIEN 6 6 PHYSICIAN KAMILA T VISIT S GROUP 15 MINUT[facility], 6 6 [facility] OFFICE 14300 [facility] 6 Y T [facility]ISIT 5 [facility] 6 6 Y [facility] T OFFICE 72514 [facility] 6 6 Y T [facility]ISIT 5 [facility] 6 6 [facility] 6 [facility] T OFFICE 28822 [facility] 6 6 PHYSICIAN KAMILA T VISIT S GROUP 15 [facility]UT[facility], 6 6 [facility] EMERGENCY 10120 DALILA SINGH DEPT 6 6 PHYSICIAN KAMILA VISIT S, PLLC HIGH SEVERITY& THREAT FUN EMERGENCY 43382 [facility] DEPT 6 6 DESIRE NGOZI VISIT EMERGENCY HIGH PHYS SEVERITY& THREAT [facility] - 6 6 [facility] OUTPATI[facility] INC T OFFICE 88903 [facility] OUTPATIEN 6 6 PHYSICIAN KAMILA T VISIT S GROUP 15 MINUTES EMERGENCY 54391 [facility] 6 6 DESIRE DEPARTMEN EMERGENCY T VISIT PHYS MODERATE SEVERITY [facility] - 6 6 [facility] INC T OFFICE 34081 [facility] OUTPATIEN 6 6 PHYSICIAN KAMILA T VISIT S GROUP 15 MINUTES [facility] - 6 6 [facility] INC T OFFICE 76384 [facility] 6 6 PHYSICIAN KAMILA T [facility]ISIT S GROUP 15 MINUTES [facility]OS[facility] 6 6 [facility] T OFFICE [address]46 [facility] OUT[facility] 5 5 PHYSICIAN KAMILA T VISIT S GROUP 10 MINUTES OFFICE 11864 [facility] MANZANARES OUTPATIEN 5 5 [facility] CLINIC 15 MINUTES [facility] - 5 5 [facility] T OFFICE 40841 [facility] OUTPATIEN 5 5 CULAR MAT T VISIT CONSULTAN 25 TS O MINUTES OFFICE 87102 [facility] OUTPAT[facility] 5 5 PHYSICIAN KAMILA T VISIT S GROUP 15 MINUTES OFFICE 29825 [facility] OUTPATIEN 5 5 [facility] 15 MINUTES [facility]GENCY 50925 [facility] DESIRE MAR VISIT EMERGENCY HIGH PHYS SEVERITY& THREAT [facility] CURRIE - 5 5 [facility] OFF[facility] 25029 [facility] OUTPATIEN 5 5 PHYSICIAN KAMILA T VISIT S GROUP 10 MINUTES OFFICE 23333 [facility] BRITANY OUTPATIEN 5 5 CULAR MAT T VISIT CONSULTAN 25 TS O MINUTES [facility] 5 5 [facility], [facility] GOMEZ - 5 5 [facility] OUT[facility]EN [facility] T OFFICE 11992 CARDIOVAS BRITANY OUTPATIEN 5 5 CULAR MAT T VISIT CONSULTAN 40 TS O MINUTES [facility] GOMEZ - 5 5 [facility] T OFFICE 88372 [facility] FRANCISCO OUTPATIEN 5 5 PHYSICIAN KAMILA T VISIT S GROUP 15 MINUTES HOSPITAL GOMEZ - 5 5 [facility] INC T OFFICE 72804 CARDIOVAS BRITANY OUTPATIEN 5 5 CULAR MAT T VISIT CONSULTAN 25 TS O MINUTES [facility] GOME[facility] - 5 5 [facility] GOMEZ - 5 5 [facility] INC T OFFICE 55182 [facility] OUTPATIEN 5 5 PHYSICIAN KAMILA T VISIT S GROUP 10 MINUTES OFFICE 47849 CARDIOVAS BRITANY OUTPATIEN 5 5 CULAR MAT T VISIT CONSULTAN 40 TS O MINUTES [facility] GOME[facility] - 5 5 [facility] T OFFICE 28413 [facility] FRANC[facility] OUTPATIEN 5 5 PHYSICIAN KAMILA T VISIT S GROUP 15 MINUTES OFFICE 84864 CARDIOVAS BRITANY OUTPATIEN 5 5 CULAR MAT T VISIT CONSULTAN 25 TS O MINUTES [facility] GOME[facility] - 5 5 [facility] T OFFICE 83890 [facility] FRANC[facility]CO OUTPATIEN 5 5 PHYSICIAN KAMILA T VISIT S GROUP 15 MINUTES HOSPITAL MEADOWVIE - 5 5 W OUTPATIEN REGIONAL T [facility]ICAL [facility]ERGENCY 38648 [facility] W VISIT REGIONAL HIGH MEDICAL SEVERITY& THREAT FUN OFFICE 46876 [facility] OUTPATIEN 5 5 PHYSICIAN KAMILA T VISIT S GROUP 15 MINUTES [facility] INPATIENT OFFICE 45977 [facility] CARISSA OUTPATIEN 5 5 [facility] 45 MEDICAL MINUTES G OFFICE 48487 [facility] OUTPATIEN 5 5 PHYSICIAN KAMILA T VISIT S GROUP 15 MINUTES OFFICE 48471 CARDIOVAS BLACK JAZZMINE OUTPATIEN 5 5 CULAR T NEW 60 CONSULTAN MINUTES TS O [facility] 5 5 [facility] 35731 [facility] FRANC[facility] OUTPATIEN 5 5 PHYSICIAN KAMILA T VISIT S GROUP 15 MINUTES HOSPITAL CURRIE - OTHER 5 5 CO [facility] GOMEZ - 5 5 [facility] OFF[facility] 02285 [facility] OUTPATIEN 5 5 PHYSICIAN KAMILA T VISIT S GROUP 15 MINUTES OFFICE 97343 [facility] OUTPATIEN 5 5 PHYSICIAN KAMILA T VISIT S GROUP 25 MINUTES HOSPITAL CURRIE - 5 5 [facility] T EMERGENCY 12863 [facility] 5 5 [facility] EMERGENCY T VISIT PHYS HIGH/URGE NT SEVERITY EMERGENCY 05149 CURRIE 5 5 CO [facility] HOSPITAL T VISIT MODERATE SEVERITY OFFICE 88623 [facility] FRANC[facility] OUTPATIEN 5 5 PHYSICIAN KAMILA T NEW 20 S GROUP MINUTES OFFICE 28511 [facility] VA[facility]HAV OUTPATIEN 5 5 CLINIC HEN T VISIT 15 MINUTES OFFICE 44773 UNIVERSIT OUTPATIEN 5 5 Y T VISIT HOSPITAL 10 MINUTES HOSPITAL [facility]ERSIT - 5 5 [facility] 73957 [place] [facility] OUTPATIEN 5 5 MEDICAL CECILIA T VISIT SERV 15 FOUNDATIO MINUTES N OFFICE 64765 [facility] VAIBHAV OUTPATIEN 4 4 CLINIC HEN T VISIT 15 MINUTES OFFICE 46593 [facility] VA[facility] OUTPATIEN 4 4 CLINIC HEN T VISIT 15 MINUTES HOSPITAL UNIVERSIT - 4 4 Y OUTPATI HOSPITAL T OFFICE 45664 UNIVERSIT OUTPATIEN 4 4 Y T VISIT HOSPITAL 10 MINUTES OFFICE 00189 [facility] SANTOSH OUTPATIEN 4 4 CECILIA CECILIA T VISIT 15 MINUTES OFFICE 41520 [facility] KIRK OUTPATIEN 4 4 CLINIC NHI T VISIT 25 MINUTES OFFICE 19679 [facility] VAIBHAV OUTPATIEN 4 4 CLINIC HEN T VISIT 15 MINUTES OFFICE 51888 [facility] OUTPATIEN 4 4 CLINIC T VISIT 25 MINUTES OFFICE 93736 [facility] HUTCHINS- OUTPATIEN 4 4 CLINIC SE YOSVANY T VISIT 25 MINUTES OFFICE 89897 [facility] OUTPATIEN 4 4 CECILIA CECILIA T VISIT 15 MINUTES HOSPITAL [facility], - 3 3 SIGNAL AND COMMUNICATIONS [facility] OFF[facility] 05964 [facility] SANTOSH OUTPATIEN 3 3 CECILIA CECILIA T VISIT 25 MINUTES OFFICE 20619 MARGO ARAGON OUTPATIEN 3 3 Apr T VISIT 25 MINUTES OFFICE 53122 TAMAREN NABEELN OUTPATIEN 3 3 Apr T VISIT 25 MINUTES OFFICE 18790 TAMAREN DEBORAHAREN OUTPATIEN 3 3 Apr T VISIT 25 MINUTES OFFICE 19430 [facility] OUTPATIEN 3 3 CECILIA CECILIA T VISIT 15 MINUTES HOSPITAL [facility] - [facility] 56821 UNIVERSIT OUTPATIEN 3 3 Y T VISIT HOSPITAL 25 MINUTES OFFICE 50464 MARGO LEESN OUTPATIEN 2 2 Apr T VISIT 25 MINUTES OFFICE 13374 [facility] BERNABEO OUTPATIEN 2 2 CECILIA CECILIA T VISIT 15 MINUTES OFFICE 07144 [facility] LEESN OUTPATIEN 2 2 Apr T VISIT 25 MINUTES OFFICE 72358 [facility] LEESN OUTPATIEN 2 2 Apr T VISIT 15 MINUTES HOSPITAL MHC INC, - 2 2 SIGNAL AND COMMUNICATIONS MAINTAINER [facility]OD [facility] HOS HOSPITAL UNIVERSIT - 2 2 Y [facility] T OFFICE 59524 MARGO CABRERALYN OUTPATIEN 2 2 Apr T VISIT 15 MINUTES OFFICE 50151 [facility]GO LEESTrever OUTPATIEN 2 2 Apr T VISIT 25 MINUTES OFFICE 80510 [facility] BERNABEO OUTPATIEN 2 2 CECILIA CECILIA T VISIT 15 MINUTES HOSPITAL UNIVERSIT - 2 2 Y [facility]PITAL MHC INC, - 2 2 SIGNAL AND COMMUNICATIONS MAINTAINER OUTGOOD [facility] HOS OFFICE 60776 MARGO LEESTrever OUTPATIEN 2 2 Apr T VISIT 25 MINUTES HOSPITAL MHC INC, - 2 2 SIGNAL AND COMMUNICATIONS MAINTAINER OUTGOOD [facility] HOS OFFICE 70939 MARGO LEESTrever OUTPATIEN 2 2 Apr T VISIT 15 MINUTES HOSPITAL UNIVERSIT - 2 2 Y [facility] T OFFICE 01608 JHONATHAN SNYDER OUTPATIEN 2 2 T VISIT 15 MINUTES HOSPITAL JESSIE - 2 2 CO [facility] T OFFICE 05304 ANBEELTrever DEBORAHSTIVEN OUTPATIEN 2 2 Apr T VISIT 25 MINUTES OFFICE 85711 NABEELTrever DEBORAHSTIVEN OUTPATIEN 1 1 CECILIA CECILIA T VISIT 25 MINUTES HOSPITAL UNIVERSIT - 1 1 Y [facility] T OFFICE 90432 [facility] BERNABEO OUTPATIEN 1 1 CECILIA CECILIA T VISIT 15 MINUTES OFFICE 38283 ROCCO VALIENTE OUTPATIEN 1 1 GRE GRE T NEW 45 MINUTES OFFICE 26168 NABEELTrever NABEELTrever OUTPATIEN 1 1 CECILIA CECILIA T VISIT 15 MINUTES HOSPITAL JESSIE - 1 1 [facility] T OFFICE 91718 [facility] LEESTrever OUTPATIEN 1 1 CLINIC CECILIA T VISIT PSC 25 MINUTES HOSPITAL JESSIE - 1 1 [facility] HOSPITAL UNIVERSIT - 1 1 Y [facility] T OFFICE 15171 TIFFANIE FROST OUTPATIEN 1 1 MEDICAL CECILIA T VISIT SERV 15 FOUNDATIO MINUTES OFFICE 70801 ALLRAN JR ALLRAN JR CONSULTAT 1 1 ACLEB CALEB ION NEW/ESTAB PATIENT 40 MIN OFFICE 24208 [facility] NABEELTrever OUTPATIEN 1 1 CLINIC CECILIA T VISIT PSC 15 MINUTES OFFICE 55160 [facility] NABEELTrever OUTPATIEN 1 1 CLINIC CECILIA T VISIT PSC 25 MINUTES OFFICE 77368 ONCOLOGY JAJA CHR OUTPATIEN 1 1 HEMATOLOG T VISIT Y CARE IN 25 MINUTES HOSPITAL MEADOWVIE - 1 1 [facility] MEDICAL OFF[facility] 57555 TIFFANIE BRUMFIELD OUTPATIEN 1 1 MEDICAL T VISIT SERV 25 FOUNDATIO MINUTES HOSPITAL MEADOWVIE - 1 1 [facility] MEDICAL OFFICE 17959 ONCOLOGY SIGMUND OUTPATIEN 1 1 HEMATOLOG ADOLFO T VISIT Y CARE IN 15 MINUTES OFFICE 49165 CEHNCHO ARAGON OUTPATIEN 1 1 CLINIC CECILIA T VISIT PSC 15 MINUTES OFFICE 34711 [facility] ARAGON OUTPATIEN 1 1 CLINIC CECILIA T VISIT PSC 25 MINUTES HOSPITAL JESSIE - 1 1 [facility] T OFFICE 55029 CHENCHO ARAGON OUTPATIEN 1 1 CLINIC CECILIA T VISIT PSC 15 MINUTES OFFICE 07327 TIFFANIE FROST OUTPATIEN 1 1 MEDICAL CECILIA T VISIT SERV 15 [facility] UNIVERSIT - 1 1 Y [facility] T OFFICE 46722 ONCOLOGY [facility] 1 1 HEMATOLOG T VISIT Y CARE IN 15 [facility] MEADOWVIE - [address] [facility] CURRIE - 1 1 [facility] T OFFICE 41539 RINALDINI RINALDINI OUTPATIEN 1 1 ETHAN ETHAN T VISIT 15 MINUTES OFFICE 37083 TIFFANIE BONDSANTOSH [facility] MEDICAL CECILIA T VISIT SERV 15 [facility] CURRIE - 1 1 [facility] MEADOWVIE - 0 0 [facility] MEDICAL OFFICE 31181 RINALDINI RINALDINI OUTPATIEN 0 0 ETHAN ETHAN T VISIT 15 MINUTES HOSPITAL CURRIE - 0 0 [facility] CURRIE - 0 0 [facility] MEADOWVIE - 0 0 [facility] MEDICAL OFFICE 53096 TIFFANIE [facility]CKLEY [facility] 0 MEDICAL PRA T VISIT SERV 10 [facility] CURRIE - 0 0 [facility] T OFFICE 82852 MAILE ESTRADAINI OUTPATIEN 0 0 ETHAN ETHAN T VISIT 15 MINUTES EMERGENCY 05457 JESSIE 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 0 0 CO Y VISIT HOSPITAL CORPORATI HIGH ON OF AM SEVERITY& [facility] J[facility] - 0 0 CO [facility] T OFFICE 47992 [facility]ALIEINI [facility] 0 0 ETHAN ETHAN T VISIT 25 MINUTES HOSPITAL CURRIE - 0 0 CO [facility] T [facility] CUR[facility] - 0 0 [facility] MEADOWVIE - 0 0 W [facility] T MEDICAL OFFICE 35095 MAILE ESTRADAINI OUTPATIEN 0 0 ETHAN ETHAN T VISIT 25 MINUTES HOSPITAL JESSIE - 0 0 CO [facility] T EMERGENCY 62006 JESSIE 0 0 CO [facility] HOSPITAL T VISIT LOW/MODER SEVERITY EMERGENCY 00104 MAILE ESTRADAINI 0 0 ETHAN ETHAN DEPARTMEN T VISIT MODERATE SEVERITY HOSPITAL UNIVERSIT - 0 0 Y [facility] T OFFICE 24929 [place] [facility] 0 0 MEDICAL CECILIA T VISIT SERV 15 FOUNDATIO MINUTES [facility] UNIVERSIT [facility] 0 0 [facility] T [facility] CURRIE - 0 0 CO [facility] T HOME [facility], 0 0 HOME [facility] T OFF[facility] 47204 JESSIE OUTPATIEN 0 0 CO T VISIT 5 HOSPITAL MINUTES [facility] JESSIE - 0 0 CO [facility] T OFFICE 50237 JESSIE OUTPATIEN 0 0 CO T VISIT 5 [facility] JESSIE - 0 0 CO [facility] JESSIE - 0 0 CO [facility] T OFFICE 14857 JESSIE OUTPATIEN 0 0 CO T VISIT 5 HOSPITAL [facility] EMERGENCY 42249 NATALIEINI RINALDINI 0 0 , ETHAN GAXIOLA M [facility] T VISIT HIGH/URGE NT SEVERITY EMERGENCY 52456 JESSIE 0 0 CO [facility] T VISIT LIMITED/M INOR [facility]PITAL JESSIE - 0 0 CO [facility] OFFICE 86259 NATALIEINI NATALIEINI OUTPATIEN 0 0 , ETHAN GAXIOLA M T VISIT 10 MINUTES HOSPITAL MEADOWVIE - [address] [facility] OFFICE 47582 [facility] HEMATOLOG BRITTANY Virgen T VISIT Y CARE 15 INC [facility] HOSPITAL CURRIE - 0 0 CO [facility] HOME [facility], 0 0 HOME [facility] JESSIE - 0 0 CO INPATIENT HOSPITAL EMERGENCY 79078 JESSIE 0 0 CO [facility] T VISIT LOW/MODER SEVERITY HOSPITAL JESSIE - 0 0 CO [facility] EMERGENCY 21341 JESSIE RINALDINI 0 0 CO , MINOR [facility] T VISIT LIMITED/M INOR PROB [facility] JESSIE - 0 0 [facility] MEADOWVIE - 0 0 [facility] OFFICE 27314 ONCOLOGY JAJA, OUTPATIEN 0 0 HEMATOLOG BRITTANY Virgen T VISIT Y CARE 25 INC MINUTES HOME [facility], 0 0 HOME [facility] 56047 RINALDINI RINALDINI OUTPATIEN 0 0 , MINOR , MINOR T VISIT 25 MINUTES OFFICE 07859 RINALDINI RINALDINI OUTPATIEN 0 0 , MINOR , MINOR T VISIT 15 MINUTES OFFICE 79077 [place] [facility] OUTPATIEN 0 0 MEDICAL , HANNAH T VISIT SERV 15 FOUNDATIO MINUTES OFFICE 53055 RINALDINI RINALDINI OUTPATIEN 0 0 , MINOR , MINOR T VISIT 15 MINUTES [facility]OSP[facility] - 0 0 [facility] 95599 [place] INA CONSULTAT 0 0 MEDICAL PRA ION SERV NEW/ESTAB FOUNDATIO PATIENT 30 MIN HOSPITAL UNIVERSIT - 0 0 Y [facility] T OFFICE 15876 [place] [facility] OUTPATIEN 0 0 MEDICAL CECILIA T VISIT SERV 25 FOUNDATIO MINUTES HOSPITAL UNIVERSIT - 0 0 Y [facility] T OFFICE 29009 [place] [facility] CONSULTAT 0 0 MEDICAL CECILIA ION SERV NEW/ESTAB FOUNDATIO PATIENT 80 MIN HOSPITAL JESSIE - 8 8 [facility] T [facility] 41444 [facility] T VISIT 5 HOSPITAL MINUTES [facility] 87685 [facility] T VISIT 5 HOSPITAL MINUTES HOSPITAL JESSIE - 8 8 CO [facility] T [facility] JESSIE - 8 8 [facility] T OFFICE 84362 JESSIE [facility] 8 8 CO T VISIT 5 HOSPITAL MINUTES OFFICE 62554 CHENCHO CABRERALYTrever [facility] 8 8 CLINIC [facility] 20 PSC MINUTES EMERGENCY 19530 JESSIE 8 8 CO [facility] T VISIT LIMITED/M INOR [facility] JESSIE - 8 8 CO [facility] HOSPITAL JESSIE - 8 8 [facility] T OFFICE 08157 MAILE ESTRADAINI [facility] 8 8 , ETHAN GAXIOLA T VISIT 5 MINUTES OFFICE 33380 MAILE ESTRADAINI [facility] 8 8 , ETHAN GAXIOLA T VISIT 5 MINUTES HOSPITAL JESSIE - 8 8 [facility] T OFFICE 54076 MAILE ESTRADAINI [facility] 8 8 , ETAHN GAXIOLA T VISIT 5 MINUTES OFFICE 57101 MAILE ESTRADAINI [facility] 8 8 , ETHAN GAXIOLA T VISIT 5 MINUTES
--- OUTSIDE RECORDS SUMMARY | 2017-02-06 00:26 | External Medical Summary Rpt | CCD ---
Demographics Preferred Language Liberian Marital Status Unknown Rastafarian Affiliation Unknown Race Unknown Ethnic Group Unknown Author Author , NAZ CHILDS Address Unknown Phone Immunization Unable to retrieve immunization data due to connection failure with Immunization Registry. Please try again later.
--- OUTSIDE RECORDS SUMMARY | 2017-02-06 00:26 | External Medical Summary Rpt | CCD ---
Demographics Preferred Language Czech Marital Status Unknown Quaker Affiliation Unknown Race Unknown Ethnic Group Unknown Author Author , NAZ CHILDS Address Unknown Phone Immunization Unable to retrieve immunization data due to connection failure with Immunization Registry. Please try again later.
--- OUTSIDE RECORDS SUMMARY | 2017-02-06 00:32 | External Medical Summary Rpt ---
Author Author [employer], [employer] Organization [employer] Address Unknown Phone Unavailable Results CBC W Auto Differential panel in Blood Observa Value Referen Units Interpr Notes Date tion ce etation Range Basophils 0 - 0.2 K/MM3 Normal No Oct 2 informati 2016 5:00 [#/volume on in AM ] in source Blood by data Automated count Basophils 0.1 - 2.0 % Normal No Oct 2 /100 informati 2016 5:00 leukocyte on in AM s in source Blood by data Automated count Eosinophi 0.0 - 0.4 K/mm3 Normal No Jan 2 ls informati 2016 5:00 [#/volume on in AM ] in source Blood by data Automated count Eosinophi 0.1 - % Normal No Jan 2 ls/100 12.0 informati 2016 5:00 leukocyte on in AM s in source Blood by data Automated count Granulocy 1.3 - 8.0 K/mm3 High No Oct 2 lori informati 2017 5:00 [#/volume on in AM ] in source Blood by data Automated count Granulocy 37.0 - % High No Oct 2 lori/100 80.0 informati 2016 5:00 leukocyte on in AM s in source Blood by data Automated count Hematocri 42.0 - % Low No Jan 2 t [Volume 52.0 informati 2016 5:00 on in AM Fraction] source of Blood data Hemoglobi 14.1 - g/dL Low No Oct 2 n 18.0 informati 2016 5:00 [Mass/vol on in AM ume] in source Blood data Lymphocyt 0.7 - 4.5 K/mm3 Normal No Oct 2 es informati 2016 5:00 [#/volume on in AM ] in source Unspecifi data ed specimen by Automated count Lymphocyt 10 - 50 % Low No Oct 2 es informati 2016 5:00 [#/volume on in AM ] in source Unspecifi data ed specimen by Automated count Erythrocy 27 - 31.2 pg Normal No Oct 2 te mean informati 2016 5:00 corpuscul on in AM ar source hemoglobi data n [Entitic mass] Erythrocy 31.8 - g/dl Normal No Oct 2 te mean 35.4 informati 2016 5:00 corpuscul on in AM ar source hemoglobi data n concentra tion [Mass/vol ume] by Automated count Erythrocy 82.2 - fl Normal No Oct 2 te mean 97.8 informati 2016 5:00 corpuscul on in AM ar volume source [Entitic data volume] by Automated count Monocytes 0.1 - 1.0 K/mm3 Normal No Oct 2 informati 2016 5:00 [#/volume on in AM ] in source Blood by data Automated count Monocytes 1.7 - 9.3 % Normal No Oct 2 /100 informati 2016 5:00 leukocyte on in AM s in source Blood by data Automated count Platelet 7.4 - fl Normal No Oct 2 mean 10.4 informati 2016 5:00 volume on in AM [Entitic source volume] data in Blood by Automated count Platelets 142 - 424 K/mm3 Low No Oct 2 informati 2016 5:00 [#/volume on in AM ] in source Blood data Erythrocy 4.6 - 6.2 M/mm3 Low No Oct 2 lori informati 2016 5:00 [#/volume on in AM ] in source Amniotic data fluid Erythrocy 11.5 - % Normal No Oct 2 te 17.5 informati 2016 5:00 distribut on in AM ion width source [Entitic data volume] by Automated count Leukocyte 4.8 - K/MM3 High No Oct 2 s 10.8 informati 2016 5:00 [#/volume on in AM ] in source Blood data Differential panel, method unspecified - Observa Value Referen Units Interpr Notes Date tion ce etation Range Neutrophi 0 - 8 % High No Oct 2 ls.band informati 2016 5:00 form/100 on in AM leukocyte source s in data Blood by Automated count LYMPH 3 10 - 50 % Low No Oct 2 inform2016 tion in 5:00 AM source data Platele NORMAL No No No No Oct 2 ts informa informa informa informa 2016 [Presen tion in tion in tion in tion in 5:00 AM ce] in source source source source Blood data data data data by Light microsc lauren BONILLA. No No No No Jan 2 cytosis informa informa informa informa 2017 tion in tion in tion in tion in 5:00 AM [Presen source source source source ce] in data data data data Blood by Light microsc opy Polychr SL. No No No No Oct 2 omasia informa informa informa informa 2016 [Presen tion in tion in tion in tion in 5:00 AM ce] in source source source source Blood data data data data by Light microsc opy Neutrophi 42 - 76 % High No Oct 2 ls informati 2016 5:00 [#/volume on in AM ] in source Blood by data Automated count Rouleau SL. No No No No Oct 2 x informa informa informa informa 2016 [Presen tion in tion in tion in tion in 5:00 AM ce] in source source source source Blood data data data data by Light microsc opy Cells No #CELLS No No Oct 2 Counted informati informati ati 2016 5:00 Total [#] on in on in on in AM in Blood source source source data data data Basic metabolic panel in Blood Observa Value Referen Units Interpr Notes Date tion ce etation Range Urea 7 - 18 mg/dL High No Oct 2 nitrogen informati 2017 5:00 [Mass/vol on in AM ume] in source Serum or data Plasma Calcium 8.5 - mg/dL Low No Oct 2 [Mass/vol 10.1 informati 2017 5:00 ume] in on in AM Serum or source Plasma data Chloride 98 - 107 mmoL/L Low No Oct 2 [Moles/vo informati 2016 5:00 lume] in on in AM Serum or source Plasma data Carbon 21.0 - mmoL/L Normal No Oct 2 dioxide, 32.0 informati 2016 5:00 total on in AM [Moles/vo source lume] in data Serum or Plasma Creatinin 0.70 - mg/dL No No Oct 2 e 1.30 informati informati 2017 5:00 [Mass/vol on in on in AM ume] in source source Serum or data data Plasma Creatinin 50 - 200 ML/MIN No No Oct 2 e renal informati informati 2016 5:00 clearance on in on in AM source source predicted data data by Cockcroft -Gault formula Estimated >60 ML/MIN No REFERENCE Oct 2 informati RANGE: 2017 5:00 glomerula on in >60 AM r source ML/MIN/1. filtratio data 73 SQUARE n rate METERSIf (GF this patient is -A merican, then multiply theresult by 1.210. Glucose 74 - 106 mg/dL High No Oct 2 [Mass/vol informati 2017 5:00 ume] in on in AM Serum or source Plasma data Potassium 3.5 - 5.1 mmoL/L Normal No Oct 2 informati 2017 5:00 [Moles/vo on in AM lume] in source Serum or data Plasma Sodium 136 - 145 mmoL/L Low No Oct 2 [Moles/vo informati 2017 5:00 lume] in on in AM Serum or source Plasma data Lipid 1996 panel in Serum or Plasma Observa Value Referen Units Interpr Notes Date tion ce etation Range Cholester < 200 mg/dL No No Oct 2 ol informati informati 2017 5:00 [Moles/vo on in on in AM lume] in source source Unspecifi data data ed specimen Cholester 40 - 60 MG/DL Normal No Oct 2 ol in HDL informati 2017 5:00 on in AM [Mass/vol source ume] in data Serum or Plasma Cholester 0 - 130 mg/dL Normal No Oct 2 ol in LDL informati 2017 5:00 on in AM [Mass/vol source ume] in data Serum or Plasma by elly on Triglycer 30 - 200 mg/dL Low RESULTS Oct 2 mendoza RECHECKED 2016 5:00 [Moles/vo AM lume] in VERIFIED Serum or Plasma Cholester 0 - 40 No Normal No Oct 2 ol in informati informati 2017 5:00 VLDL on in on in AM [Mass/vol source source ume] in data data Serum or Plasma Lactate [Moles/volume] in Serum or Plasma Observa Value Referen Units Interpr Notes Date tion ce etation Range Lactate 0.4 - 2.0 MMOL/L Normal No Oct 2 [Moles/vo informati 2016 lume] in on in 12:30 AM Serum or source Plasma data Erythrocyte sedimentation rate by Westergren method Observa Value Referen Units Interpr Notes Date tion ce etation Range Erythrocy 0 - 20 mm/hr High No Oct 1 te informati 2017 7:47 sedimenta on in PM tion rate source by data Westergre n method Troponin I.cardiac [Mass/volume] in Serum or Plasma Observa Value Referen Units Interpr Notes Date tion ce etation Range Troponin 0.00 - ng/mL High Oct 1 I.cardiac 0.06 2017 7:47 CRITICAL PM [Mass/vol RESULTS ume] in Serum or RESU Plasma LTS CALLED TO: DR. SINGH [id number] Alanis,Becca hn> 0.5 IS CONSISTEN T WITH MYOCARDIA L ISCHEMIA OR INFARCTIO N Comprehensive metabolic 2000 panel in Serum or Plasma Observa Value Referen Units Interpr Notes Date tion ce etation Range Albumin/G 1.1 - 1.8 No Low No Oct 1 lobulin informati informati 2017 7:47 [Mass on in on in PM ratio] in source source Serum or data data Plasma Albumin 3.4 - 5.0 gm/dL Low No Oct 1 [Mass/vol informati 2017 7:47 ume] in on in PM Serum or source Plasma data Alkaline 46 - 116 U/L Normal No Oct 1 phosphata informati 2017 7:47 se on in PM [Enzymati source c data activity/ volume] in Serum or Plasma Bilirubin 0.2 - 1.0 mg/dL Normal No Oct 1 .total informati 2017 7:47 [Mass/vol on in PM ume] in source Serum or data Plasma Urea 7 - 18 mg/dL High No Oct 1 nitrogen informati 2017 7:47 [Mass/vol on in PM ume] in source Serum or data Plasma Calcium 8.5 - mg/dL Low No Oct 1 [Mass/vol 10.1 informati 2017 7:47 ume] in on in PM Serum or source Plasma data Chloride 98 - 107 mmoL/L Low No Oct 1 [Moles/vo informati 2017 7:47 lume] in on in PM Serum or source Plasma data Carbon 21.0 - mmoL/L Normal No Oct 1 dioxide, 32.0 informati 2017 7:47 total on in PM [Moles/vo source lume] in data Serum or Plasma Creatinin 0.70 - mg/dL High No Oct 1 e 1.30 informati 2017 7:47 [Mass/vol on in PM ume] in source Serum or data Plasma Creatinin 50 - 200 ML/MIN Low No Oct 1 e renal informati 2017 7:47 clearance on in PM source predicted data by Cockcroft -Gault formula Estimated >60 ML/MIN No REFERENCE Oct 1 informati RANGE: 2017 7:47 glomerula on in >60 PM r source ML/MIN/1. filtratio data 73 SQUARE n rate METERSIf (GF this patient is -A merican, then multiply theresult by 1.210. Globulin 1.3 - 3.2 gm/dL High No Oct 1 [Mass/vol informati 2017 7:47 ume] in on in PM Serum source data Glucose 74 - 106 mg/dL High No Oct 1 [Mass/vol informati 2017 7:47 ume] in on in PM Serum or source Plasma data Potassium 3.5 - 5.1 mmoL/L Normal No Oct 1 informati 2016 7:47 [Moles/vo on in PM lume] in source Serum or data Plasma Sodium 136 - 145 mmoL/L Low No Oct 1 [Moles/vo informati 2017 7:47 lume] in on in PM Serum or source Plasma data Aspartate 15 - 37 U/L Normal No Oct 1 informati 2017 7:47 aminotran on in PM sferase source [Enzymati data c activity/ volume] in Serum or Plasma Alanine 12 - 78 U/L Normal No Oct 1 aminotran informati 2016 7:47 sferase on in PM [Enzymati source c data activity/ volume] in Serum or Plasma Protein 6.4 - 8.2 gm/dL Normal No Oct 1 [Mass/vol informati 2017 7:47 ume] in on in PM Serum or source Plasma data Lactate [Moles/volume] in Blood Observa Value Referen Units Interpr Notes Date tion ce etation Range Lactate 0.4 - 2.0 mmol/L High An Oct 1 [Moles/vo elevated 2017 7:47 lume] in Lactic PM Blood Acid is suggestiv e of sepsis and shouldbe repeated within 6 hours of initial testing. CBC W Auto Differential panel in Blood Observa Value Referen Units Interpr Notes Date tion ce etation Range Basophils 0 - 0.2 K/MM3 Normal No Oct 1 informati 2016 7:47 [#/volume on in PM ] in source Blood by data Automated count Basophils 0.1 - 2.0 % Normal No Oct /100 informati 2017 7:47 leukocyte on in PM s in source Blood by data Automated count Eosinophi 0.0 - 0.4 K/mm3 Normal No Oct 1 ls informati 2016 7:47 [#/volume on in PM ] in source Blood by data Automated count Eosinophi 0.1 - % Normal No Oct 1 ls/100 12.0 informati 2016 7:47 leukocyte on in PM s in source Blood by data Automated count Granulocy 1.3 - 8.0 K/mm3 High No Oct 1 lori informati 2016 7:47 [#/volume on in PM ] in source Blood by data Automated count Granulocy 37.0 - % High No Oct 1 lori/100 80.0 informati 2016 7:47 leukocyte on in PM s in source Blood by data Automated count Hematocri 42.0 - % Low No Jan 1 t [Volume 52.0 informati 2016 7:47 on in PM Fraction] source of Blood data Hemoglobi 14.1 - g/dL Low No Jan 1 n 18.0 informati 2016 7:47 [Mass/vol on in PM ume] in source Blood data Lymphocyt 0.7 - 4.5 K/mm3 Normal No Jan 1 es informati 2016 7:47 [#/volume on in PM ] in source Unspecifi data ed specimen by Automated count Lymphocyt 10 - 50 % Low No Jan 26 es informati 2016 7:47 [#/volume on in PM ] in source Unspecifi data ed specimen by Automated count Erythrocy 27 - 31.2 pg Normal No Oct 1 te mean informati 2016 7:47 corpuscul on in PM ar source hemoglobi data n [Entitic mass] Erythrocy 31.8 - g/dl Normal No Oct 1 te mean 35.4 informati 2016 7:47 corpuscul on in PM ar source hemoglobi data n concentra tion [Mass/vol ume] by Automated count Erythrocy 82.2 - fl Normal No Jan 1 te mean 97.8 informati 2016 7:47 corpuscul on in PM ar volume source [Entitic data volume] by Automated count Monocytes 0.1 - 1.0 K/mm3 Normal No Oct 1 informati 2016 7:47 [#/volume on in PM ] in source Blood by data Automated count Monocytes 1.7 - 9.3 % Normal No Oct 1 /100 informati 2016 7:47 leukocyte on in PM s in source Blood by data Automated count Platelet 7.4 - fl Normal No Jan 26 mean 10.4 informati 2016 7:47 volume on in PM [Entitic source volume] data in Blood by Automated count Platelets 142 - 424 K/mm3 No No Oct 1 informati informati 2017 7:47 [#/volume on in on in PM ] in source source Blood data data Erythrocy 4.6 - 6.2 M/mm3 Low No Jan 26 lori informati 2016 7:47 [#/volume on in PM ] in source Amniotic data fluid Erythrocy 11.5 - % Normal No Jan 26 te 17.5 informati 2017 7:47 distribut on in PM ion width source [Entitic data volume] by Automated count Leukocyte 4.8 - K/MM3 High No Jan 26 s 10.8 informati 2017 7:47 [#/volume on in PM ] in source Blood data Opiates and Oxycodone(GC/MS),U Observa Value Referen Units Interpr Notes Date tion ce etation Range Oxycodo Positiv . No Abnorma Test Sep 18 ne/Oxym e informa l include 2017 orph tion in s 2:00 PM source Oxycodo data ne and Oxymorp [place] Oxycodo Positiv . No Abnorma No Sep 18 ne e informa l informa 2017 tion in tion in 2:00 PM source source data data Oxycodo 1740 Cutoff= ng/mL No No Sep 18 ne 100 informa informa 2017 (GC/MS) tion in tion in 2:00 PM source source data data Oxymorp Positiv . No Abnorma No Sep 18 [place] e informa l informa 2017 tion in tion in 2:00 PM source source data data Oxymorp 269 Cutoff= ng/mL No Perform Sep 18 [place] 100 informa ed at: 2017 (GC/MS) tion in UI - 2:00 PM source [facility] data OTS [id number] [facility], [place], [place] [id number] Directo r: Klaus Santos MD, Phone: [phone] Opiates Negativ Cutoff= No No Opiate Sep 18 e 100 informa informa test 2017 tion in tion in include 2:00 PM source source s data data Codeine , Morphin e, Hydromo rphone, Hydroco done. Drugs identified in Urine by Screen method Observa Value Referen Units Interpr Notes Date tion ce etation Range Positive urine drug screen samples are stored for 7 days. Contact the Lab if confirmation of positives is needed. Ampheta NEGATIV <1000 ng/mL No No Sep 18 mine E informa informa 2017 [Presen tion in tion in 2:00 PM ce] in source source Urine data data by Screen method Barbitura <200 ng/mL No No Sep 18 lori informati informati 2017 2:00 [Mass/vol on in on in PM ume] in source source Urine by data data Screen method Benzodiaz 200 ng/mL ng/mL High This is Sep epines an 2017 2:00 [Mass/vol UNCONFIRM PM ume] in ED Serum or result. Plasma by This Screen result is method for medicalpu rposes and/or treatment only. Cocaine <300 ng/g No No Sep 18 [Mass/vol informati informati 2017 2:00 ume] in on in on in PM Unspecifi source source ed data data specimen Methadone <300 ng/mL No No Sep 18 informati informati 2017 2:00 [Mass/vol on in on in PM ume] in source source Unspecifi data data ed specimen Opiates <300 ng/mL No No Sep 18 [Mass/vol informati informati 2017 2:00 ume] in on in on in PM Unspecifi source source ed data data specimen Phencycli <25 ng/mL No No Sep 18 dine informati informati 2017 2:00 [Mass/vol on in on in PM ume] in source source Unspecifi data data ed specimen 11-Hydr NEGATIV <50 ng/mL No No Sep 18 oxy E informa informa 2017 delta-9 tion in tion in 2:00 PM source source tetrahy data data drocann abinol [Presen ce] in Unspeci fied specime n Opiates and Oxycodone(GC/MS),U Observa Value Referen Units Interpr Notes Date tion ce etation Range Oxycodo Positiv . No Abnorma Test Dec 13 ne/Oxym e informa l include 2017 orph tion in s 2:15 PM source Oxycodo data ne and Oxymorp [place] Oxycodo Positiv . No Abnorma No Aug 18 ne e informa l informa 2017 tion in tion in 2:15 PM source source data data Oxycodo >3000 Cutoff= ng/mL No No Dec 13 ne 100 informa informa 2017 (GC/MS) tion in tion in 2:15 PM source source data data Oxymorp Positiv . No Abnorma No Dec 13 [place] e informa l informa 2017 tion in tion in 2:15 PM source source data data Oxymorp 421 Cutoff= ng/mL No Perform Dec 13 [place] 100 informa ed at: 2017 (GC/MS) tion in UI - 2:15 PM source [facility] data OTS [id number] [facility], [place], [place] [id number]Lab Directo r: Klaus Santos MD, Phone: [phone] Opiates Negativ Cutoff= No No Opiate Dec 13 e 100 informa informa test 2017 tion in tion in include 2:15 PM source source s data data Codeine , Morphin e, Hydromo rphone, Hydroco done. Drugs identified in Urine by Screen method Observa Value Referen Units Interpr Notes Date tion ce etation Range Positive urine drug screen samples are stored for 7 days. Contact the Lab if confirmation of positives is needed. Ampheta NEGATIV <1000 ng/mL No No Dec 13 mine E informa informa 2016 [Presen tion in tion in 2:15 PM ce] in source source Urine data data by Screen method Barbitura <200 ng/mL No No Dec 13 lori informati informati 2017 2:15 [Mass/vol on in on in PM ume] in source source Urine by data data Screen method Benzodiaz 200 ng/mL ng/mL High This is Dec 13 epines an 2017 2:15 [Mass/vol UNCONFIRM PM ume] in ED Serum or result. Plasma by This Screen result is method for medicalpu rposes and/or treatment only. Cocaine <300 ng/g No No Dec 13 [Mass/vol informati informati 2017 2:15 ume] in on in on in PM Unspecifi source source ed data data specimen Methadone <300 ng/mL No No Dec 13 informati informati 2017 2:15 [Mass/vol on in on in PM ume] in source source Unspecifi data data ed specimen Opiates <300 ng/mL No No Dec 13 [Mass/vol informati informati 2017 2:15 ume] in on in on in PM Unspecifi source source ed data data specimen Phencycli <25 ng/mL No No Dec 13 dine informati informati 2017 2:15 [Mass/vol on in on in PM ume] in source source Unspecifi data data ed specimen 11-Hydr NEGATIV <50 ng/mL No No Dec 13 oxy E informa informa 2017 delta-9 tion in tion in 2:15 PM source source tetrahy data data drocann abinol [Presen ce] in Unspeci fied specime n Drugs identified in Urine by Screen method Observa Value Referen Units Interpr Notes Date tion ce etation Range Positive urine drug screen samples are stored for 7 days. Contact the Lab if confirmation of positives is needed. Ampheta NEGATIV <1000 ng/mL No No Nov 13 mine E informa informa 2017 [Presen tion in tion in 2:10 PM ce] in source source Urine data data by Screen method Barbitura <200 ng/mL No No Nov 13 lori informati informati 2017 2:10 [Mass/vol on in on in PM ume] in source source Urine by data data Screen method Benzodiaz 200 ng/mL ng/mL No No Nov 13 epines informati informati 2017 2:10 [Mass/vol on in on in PM ume] in source source Serum or data data Plasma by Screen method Cocaine <300 ng/g No No Nov 13 [Mass/vol informati informati 2017 2:10 ume] in on in on in PM Unspecifi source source ed data data specimen Methadone <300 ng/mL No No Nov 13 informati informati 2017 2:10 [Mass/vol on in on in PM ume] in source source Unspecifi data data ed specimen Opiates <300 ng/mL High This is Nov 13 [Mass/vol an 2016 2:10 ume] in UNCONFIRM PM Unspecifi ED ed result. specimen This result is for medicalpu rposes and/or treatment only. Phencycli <25 ng/mL No No Nov 13 dine informati informati 2017 2:10 [Mass/vol on in on in PM ume] in source source Unspecifi data data ed specimen 11-Hydr NEGATIV <50 ng/mL No No Nov 13 oxy E informa informa 2017 delta-9 tion in tion in 2:10 PM source source tetrahy data data drocann abinol [Presen ce] in Unspeci fied specime n Drugs identified in Urine by Screen method Observa Value Referen Units Interpr Notes Date tion ce etation Range Positive urine drug screen samples are stored for 7 days. Contact the Lab if confirmation of positives is needed. Ampheta NEGATIV <1000 ng/mL No No Oct 15 mine E informa informa 2017 [Presen tion in tion in 3:05 PM ce] in source source Urine data data by Screen method Barbitura <200 ng/mL No No Oct 15 lori informati informati 2017 3:05 [Mass/vol on in on in PM ume] in source source Urine by data data Screen method Benzodiaz 200 ng/mL ng/mL No No Oct 15 epines informati informati 2017 3:05 [Mass/vol on in on in PM ume] in source source Serum or data data Plasma by Screen method Cocaine <300 ng/g No No Oct 15 [Mass/vol informati informati 2017 3:05 ume] in on in on in PM Unspecifi source source ed data data specimen Methadone <300 ng/mL No No Oct 15 informati informati 2016 3:05 [Mass/vol on in on in PM ume] in source source Unspecifi data data ed specimen Opiates <300 ng/mL High This is Oct 15 [Mass/vol an 2016 3:05 ume] in UNCONFIRM PM Unspecifi ED ed result. specimen This result is for medicalpu rposes and/or treatment only. Phencycli <25 ng/mL No No Oct 15 dine informati informati 2017 3:05 [Mass/vol on in on in PM ume] in source source Unspecifi data data ed specimen 11-Hydr NEGATIV <50 ng/mL No No Oct 15 oxy E informa informa 2017 delta-9 tion in tion in 3:05 PM source source tetrahy data data drocann abinol [Presen ce] in Unspeci fied specime n Benzodiazepines Confirm, Urine Observa Value Referen Units Interpr Notes Date ti ce etation Range Benzodi Negativ Cutoff= ng/mL No No September 06 azepine e 100 informa informa 2017 s tion in tion in 2:00 PM [Presen source source ce] in data data Urine Alprazo Negativ Cutoff= No No No September 06 skaggs e 100 informa informa informa 2017 [Presen tion in tion in tion in 2:00 PM ce] in source source source Urine data data data Clonaze Negativ Cutoff= No No No September 06 john e 100 informa informa informa 2017 [Presen tion in tion in tion in 2:00 PM ce] in source source source Urine data data data Temazep Negativ Cutoff= No No No September 06 am e 100 informa informa informa 2017 [Presen tion in tion in tion in 2:00 PM ce] in source source source Urine data data data by Confirm method Triazol Negativ Cutoff= No No No September 06 am e 100 informa informa informa 2017 [Presen tion in tion in tion in 2:00 PM ce] in source source source Urine data data data Midazol Negativ Cutoff= No No No September 06 am e 100 informa informa informa 2017 [Presen tion in tion in tion in 2:00 PM ce] in source source source Urine data data data by Confirm method Nordiaz Negativ Cutoff= No No No September 06 epam e 100 informa informa informa 2017 [Presen tion in tion in tion in 2:00 PM ce] in source source source Urine data data data Please Comment . No No Drug-te September 06 Note: informa informa st 2017 tion in tion in results 2:00 PM source source should data data be interpr eted in the context of clinica linform ation. Patient metabol ic variabl es, specifi c drug biochemistry technologist ry, andspec imen charact eristic s can affect test outcome . Technic alconsu ltation is availab le if a test result is inconsi stent with anexpec dg outcome . (email- emily bullock @[employer] or call Schrodinger [phone] )Drug brands, if listed herein, are tradema rks of their respect sammy santiagoPerf ormed at: - [facility] [id number] [place], [place] [id number]Lab Directo r: Klaus Santos MD, Phone: [phone] Oxazepa Negativ Cutoff= No No No September 06 m e 100 informa informa informa 2016 [Presen tion in tion in tion in 2:00 PM ce] in source source source Urine data data data Fluraze Negativ Cutoff= No No No September 06 john e 100 informa informa informa 2017 [Presen tion in tion in tion in 2:00 PM ce] in source source source Urine data data data Lorazep Negativ Cutoff= No No No September 06 am e 100 informa informa informa 2016 [Presen tion in tion in tion in 2:00 PM ce] in source source source Urine data data data Opiates and Oxycodone(GC/MS),U Observa Value Referen Units Interpr Notes Date tion ce etation Range Oxycodo Positiv . No Abnorma Test September 06 ne/Oxym e informa l include 2017 orph tion in s 2:00 PM source Oxycodo data ne and Oxymorp [place] Oxycodo Positiv . No Abnorma No September 06 ne e informa l informa 2017 tion in tion in 2:00 PM source source data data Oxycodo 1190 Cutoff= ng/mL No No September 06 ne 100 informa informa 2017 (GC/MS) tion in tion in 2:00 PM source source data data Oxymorp Negativ Cutoff= No No No September 06 [place] e 100 informa informa informa 2017 tion in tion in tion in 2:00 PM source source source data data data Opiates Negativ Cutoff= No No Opiate September 06 e 100 informa informa test 2017 tion in tion in include 2:00 PM source source s data data Codeine , Morphin e, Hydromo rphone, Hydroco done. XR HAND LEFT 3 VIEWS Observa Value Referen Units Interpr Notes Date tion ce etation Range XR HAND \\.br\\ No No No No Jul 5 LEFT 3 informa informa informa informa 2017 VIEWS tion in tion in tion in tion in 8:13 PM source source source source data data data data [facility]\\.br\\ [address]\\.br \\ [place] [address]\\. br\\\\.br \\ ------- --NAME- ------- - NUMBER SEX AGE ADMIT DISC. XRAY# F/C TYPE\\.b r\\ AKANKSHA PATTERSON [id number] M 61 07/31/16 07/31/16 14860 XAB E/R\\.br \\ DATE OF : [birth year] M/R# [id number] PH#: RM ERTTT\\. br\\ LOCATIO N: TRANSCR IBED: 7 8:10\\.b r\\ XR HAND LEFT 3 VIEWS [id number] COMPLET ED: 09/11 21:41 [facility] [address]\\. br\\ Diagnos is: .\\.br\\\\ .br\\ PHYSICI AN: CRISS PH\\.br\\ \\.br\\\\. br\\==== ======= ======= ======= ======= ======= ======= ======= ======= ======= ======= =====\\. br\\ RADIOLO GY REPORT\\ .br\\=== ======= ======= ======= ======= ======= ======= ======= ======= ======= ======= ======\\ .br\\ORD ER DATE and TIME: 2012\\.b r\\\\.br\\ \\.br\\Hi story: 61-year -old male with left hand pain status post injury. \\.br\\\\. br\\Find ings: 3 views of the left hand dated 7. No prior studies are\\.br \\availa ble for compari son.\\.b r\\\\.br\\ Mild soft tissue swellin g. Punctat e metalli c foreign body in soft tissues \\.br\\be tween the first and second metacar pals. Old, healed fractur es of the fourth\\ .br\\fin kingsley distal phalanx tuft and of the distal radius. No acute fractur es or\\.br\\ disloca tions are identif ied. Mild degener ative changes of the third and\\.br \\fourth distal interph alangea l joints. \\.br\\\\. br\\Impr ession: \\.br\\\\. br\\1. No acute fractur es or disloca tions are identif ied in the left hand.\\. br\\\\.br \\2. Old, healed fractur es of the fourth finger distal phalanx tuft and the\\.br \\distal radius. \\.br\\\\. br\\3. Punctat e metalli c foreign body in soft tissues between the first and\\.br \\second metacar pals.\\. br\\\\.br \\\\.br\\E lectron ically Signed By:\\.br \\Herb. NATHANAEL WELDON MD,RADI OLOGIST \\.br\\Da te/Time : 7 08:10\\. br\\ Drug abuse CCC Observa Value Referen Units Interpr Notes Date tion ce etation Range DIMENSION RAPID URINE DRUG SCREEN DETECTI No No No No Jul 17 ON informa informa informa informa 2016 LIMIT tion in tion in tion in tion in 9:16 PM source source source source data data data data Drug NEG. No 1000_ng No No Jul 17 abuse informa /mL informa informa 2016 CCC tion in tion in tion in 9:16 PM source source source data data data Benzodi NEG. No 200_ng/ No No Jul 17 azepine informa mL informa informa 2016 s tion in tion in tion in 9:16 PM [Mass/v source source source olume] data data data in Urine Benzodi NEG. No 200_ng/ No No Jul 17 azepine informa mL informa informa 2017 s tion in tion in tion in 9:16 PM [Mass/v source source source olume] data data data in Urine Cocaine NEG. No 300_ng/ No No Jul 17 informa mL informa informa 2016 [Mass/v tion in tion in tion in 9:16 PM olume] source source source in data data data Urine Methado NEG. No 300_ng/ No No Jul 17 ne informa mL informa informa 2017 [Mass/v tion in tion in tion in 9:16 PM olume] source source source in data data data Urine Platele NEG. No 2000_ng No No Jul 17 ts informa /mL informa informa 2016 [#/volu tion in tion in tion in 9:16 PM me] in source source source Blood data data data by Automat ed count Phencyc NEG. No 25_ng/m No No Jul 17 lidine informa L informa informa 2016 [Mass/v tion in tion in tion in 9:16 PM olume] source source source in data data data Urine Cannabi NEG. No 50_ng/m No No Jul 17 noids informa L informa informa 2016 [Mass/v tion in tion in tion in 9:16 PM olume] source source source in data data data Urine Oxycodo POSITIV No 100_ng/ No *POSITI Jul 17 ne E informa mL informa VE 2016 [Mass/m tion in tion in RESULTS 9:16 PM ass] in source source ARE Hair data data CONSIDE RED PRESUMP TIVEP OSITIVE RESULTS SHALL BE SENT TO [facility] FOR CONFIRM ATION UPON REQUEST T HIS TEST PERORME D FOR MEDICAL DIAGNOS TIC USE ONLY TEST PERFORM ED BY: [facility] [place] [phone])MA DICAL DIRECTO R: Eddie Dickson MD Urinalysis dipstick W Reflex Microscopic panel in Urine Observa Value Referen Units Interpr Notes Date tion ce etation Range Color YELLOW NL: No No No Jul 17 of Negativ informa informa informa 2017 Urine e tion in tion in tion in 9:09 PM source source source data data data Appeara CLEAR NL: No No No Jul 17 nce of Negativ informa informa informa 2017 Urine e tion in tion in tion in 9:09 PM source source source data data data Glucose NEG NL: No No No Jul 17 Negativ informa informa informa 2017 [Mass/v e tion in tion in tion in 9:09 PM olume] source source source in data data data Urine by Test strip Bilirub 1+ NL: No Abnorma No Jul 17 in Negativ informa l informa 2017 [Presen e tion in tion in 9:09 PM ce] in source source Urine data data by Test strip Ketones TRACE NL: No No No Jul 17 Negativ informa informa informa 2017 [Presen e tion in tion in tion in 9:09 PM ce] in source source source Serum data data data or Plasma Specifi 1.025 NL: No No No Jul 17 c 1.00 >= informa informa informa 2017 gravity 1.030 tion in tion in tion in 9:09 PM of source source source Urine data data data Hemoglo NEG NL: No No No Jul 17 bin Negativ informa informa informa 2017 [Presen e tion in tion in tion in 9:09 PM ce] in source source source Urine data data data by Test strip pH of 5.0 NL: No No No Jul 17 Urine informa informa informa 2017 by Test tion in tion in tion in 9:09 PM strip source source source data data data Protein 1+ NL: No Abnorma No Jul 17 Negativ informa l informa 2016 [Presen e tion in tion in 9:09 PM ce] in source source Urine data data by Test strip Urobili 0.2 NL: 0.2 No No No Jul 17 nogen - 1.0 informa informa informa 2017 [Mass/v tion in tion in tion in 9:09 PM olume] source source source in data data data Urine by Test strip Nitrite NEG NL: No No No Jul 17 Negativ informa informa informa 2017 [Presen e tion in tion in tion in 9:09 PM ce] in source source source Urine data data data by Test strip Leukocy TRACE NL: No No { Jul 17 lori Negativ informa informa MICROSC 2017 [#/volu e tion in tion in OPIC 9:09 PM me] in source source Blood data data See by Below Automat ed count Leukocy 0 - 3 NL: No No No Jul 17 lori NEGATIV informa informa informa 2017 [#/volu E tion in tion in tion in 9:09 PM me] in source source source Blood data data data by Automat ed count Erythro 0 - 3 NL: No Abnorma No Jul 17 cytes NEGATIV informa l informa 2016 [#/volu E tion in tion in 9:09 PM me] in source source Blood data data by Automat ed count Epithel 0 - 3 NL: No No No Jul 17 ial NEGATIV informa informa informa 2017 cells E tion in tion in tion in 9:09 PM [#/area source source source ] in data data data Urine sedimen t by Microsc opy high power field Bacteri NEGATIV NL: No No No Jul 17 a E NEGATIV informa informa informa 2016 [#/area E tion in tion in tion in 9:09 PM ] in source source source Urine data data data sedimen t by Microsc opy high power field Mucus NEGATIV NL: No No No Jul 17 [Presen E NEGATIV informa informa informa 2017 ce] in E tion in tion in tion in 9:09 PM Urine source source source sedimen data data data t by Light microsc opy Yeast NEGATIV NL: No No No Jul 17 [Presen E NEGATIV informa informa informa 2017 ce] in E tion in tion in tion in 9:09 PM Unspeci source source source fied data data data specime n by Wet prepara tion Casts SEE NL: No No No Jul 17 type BELOW NEGATIV informa informa informa 2016 not E tion in tion in tion in 9:09 PM specifi source source source ed data data data [Presen ce] in Urine by Compute r assiste d method Granula 0 - 3 No No Abnorma No Jul 17 r casts informa informa l informa 2017 tion in tion in tion in 9:09 PM [Presen source source source ce] in data data data Urine sedimen t by Light microsc opy Hyaline 3 - 5 No No No No Jul 17 casts informa informa informa informa 2016 [#/area tion in tion in tion in tion in 9:09 PM ] in source source source source Urine data data data data sedimen t by Microsc opy low power field Crystal NEGATIV NL: No No No Jul 17 s E NEGATIV informa informa informa 2017 [type] E tion in tion in tion in 9:09 PM in source source source Urine data data data sedimen t by Light microsc opy Additio C CATCH No No No No Jul 17 nal informa informa informa informa 2017 comment tion in tion in tion in tion in 9:09 PM s RFC source source source source data data data data CULTURE NOT No No No No Jul 17 SETUP INDIC informa informa informa informa 2017 tion in tion in tion in tion in 9:09 PM source source source source data data data data Bacteria identified in Blood by Culture Observa Value Referen Units Interpr Notes Date tion ce etation Range _CULTURE BLOOD_ STATUS PRELIMI No No No No Jul 22 NARY informa informa informa informa 2017 tion in tion in tion in tion in 10:59 source source source source PM data data data data RESULT NO No No No No Jul 22 GROWTH informa informa informa informa 2017 AT 1 tion in tion in tion in tion in 10:59 DAY source source source source PM data data data data RESULTE CAM No No No Jul 22 D BY informa informa informa 2017 tion in tion in tion in 10:59 source source source PM data data data SEND TO Y No No No Jul 22 ER informa informa informa 2017 tion in tion in tion in 10:59 source source source PM data data data STATUS FINAL No No No No Jul 22 informa informa informa informa 2017 tion in tion in tion in tion in 10:59 source source source source PM data data data data RESULT NO No No No No Jul 22 GROWTH informa informa informa informa 2017 5 DAYS tion in tion in tion in tion in 10:59 source source source source PM data data data data RESULTE CAM No No No No Jul 22 D BY informa informa informa informa 2017 tion in tion in tion in tion in 10:59 source source source source PM data data data data SEND Y No No No No Jul 22 PHARM/I informa informa informa informa 2017 C tion in tion in tion in tion in 10:59 source source source source PM data data data data SEND TO Y No No No Jul 22 ER informa informa informa 7.2259. 2017 tion in tion in tion in CAM.[facility] 10:59 source source source PLETE PM data data data Bacteria identified in Blood by Culture Observa Value Referen Units Interpr Notes Date tion ce etation Range _CULTURE BLOOD_ STATUS PRELIMI No No No No Jul 22 NARY informa informa informa informa 2017 tion in tion in tion in tion in 10:58 source source source source PM data data data data RESULT NO No No No No Jul 22 GROWTH informa informa informa informa 2017 AT 1 tion in tion in tion in tion in 10:58 DAY source source source source PM data data data data RESULTE CAM No No No Jul 22 D BY informa informa informa 2017 tion in tion in tion in 10:58 source source source PM data data data SEND TO Y No No No Jul 22 ER informa informa informa 2017 tion in tion in tion in 10:58 source source source PM data data data STATUS FINAL No No No No Jul 22 informa informa informa informa 2017 tion in tion in tion in tion in 10:58 source source source source PM data data data data RESULT NO No No No No Jul 22 GROWTH informa informa informa informa 2017 5 DAYS tion in tion in tion in tion in 10:58 source source source source PM data data data data RESULTE CAM No No No No Jul 22 D BY informa informa informa informa 2017 tion in tion in tion in tion in 10:58 source source source source PM data data data data SEND Y No No No No Jul 22 PHARM/I informa informa informa informa 2017 C tion in tion in tion in tion in 10:58 source source source source PM data data data data SEND TO Y No No No Jul 22 ER informa informa informa 7.2258. 2017 tion in tion in tion in CAM.[facility] 10:58 source source source PLETE PM data data data Thyrotropin [Units/volume] in Serum or Plasma by Detection limit <= 0.05 mIU/L Observa Value Referen Units Interpr Notes Date tion ce etation Range Thyrotr 0.55 0.36 - uIU/mL No Jul 17 opin 3.74 informa informa 2016 [Units/ tion in tion in 9:39 PM volume] source source in data data Serum or Plasma by Detecti on limit <= 0.05 mIU/L Thyroxine (T4) free [Mass/volume] in Serum or Plasma Observa Value Referen Units Interpr Notes Date tion ce etation Range Thyroxi 0.99 0.76 - ng/dL No No Jul 17 ne (T4) 1.46 informa informa 2016 free tion in tion in 9:38 PM [Mass/v source source olume] data data in Serum or Plasma Comprehensive metabolic 1998 panel in Serum or Plasma Observa Value Referen Units Interpr Notes Date tion ce etation Range Sodium 134 136 - mmol/L Low No Jul 17 [Moles/ 145 informa 2016 volume] tion in 9:34 PM in source Serum data or Plasma Potassi 4.4 3.5 - mmol/L No Jul 17 um 5.1 informa informa 2016 [Moles/ tion in tion in 9:34 PM volume] source source in data data Serum or Plasma Chlorid 98 98 - mmol/L No No Jul 17 e 107 informa informa 2016 [Moles/ tion in tion in 9:34 PM volume] source source in data data Serum or Plasma Carbon 29 21 - 32 mmol/L No Jul 17 dioxide informa informa 2016 , total tion in tion in 9:34 PM source source [Moles/ data data volume] in Blood Anion 11 5 - 15 mmol/L No No Jul 17 gap in informa informa 2016 Serum tion in tion in 9:34 PM or source source Plasma data data Glucose 133 70 - mg/dl High No Jul 17 120 informa 2016 [Mass/v tion in 9:34 PM olume] source in data Serum or Plasma Urea 27 7 - 18 mg/dl High No Jul 17 nitroge informa 2016 n tion in 9:34 PM [Mass/v source olume] data in Serum or Plasma Creatin 1.7 0.6 - mg/dl High No Jul 17 ine 1.3 informa 2017 [Mass/v tion in 9:34 PM olume] source in data Serum or Plasma AGE 61 No yrs No No Jul 17 informa informa informa 2017 tion in tion in tion in 9:34 PM source source source data data data GFR 43 No ml/min No No Jul 17 informa informa informa 2017 tion in tion in tion in 9:34 PM source source source data data data Urea 16 6 - 25 ratio No No Jul 17 nitroge informa informa 2017 n/Creat tion in tion in 9:34 PM inine source source [Mass data data ratio] in Serum or Plasma Osmolal 275 272 - No No No Jul 17 ity of 295 informa informa informa 2017 Unspeci tion in tion in tion in 9:34 PM fied source source source specime data data data n Calcium 8.6 8.5 - mg/dl No No Jul 17 10.1 informa informa 2016 [Mass/v tion in tion in 9:34 PM olume] source source in data data Serum or Plasma Bilirub 0.5 0.2 - mg/dl No No Jul 17 in.tota 1.0 informa informa 2017 l tion in tion in 9:34 PM [Mass/v source source olume] data data in Serum or Plasma Asparta 13 15 - 37 IU/L Low No Jul 17 te informa 2017 aminotr tion in 9:34 PM ansfera source se data [Enzyma tic activit y/volum e] in Serum or Plasma Alanine 15 12 - 78 IU/L No No Jul 17 informa informa 2017 aminotr tion in tion in 9:34 PM ansfera source source se data data [Enzyma tic activit y/volum e] in Serum or Plasma Alkalin 61 54 - IU/L No No Jul 17 e 369 informa informa 2017 phospha tion in tion in 9:34 PM tase source source [Enzyma data data tic activit y/volum e] in Serum or Plasma Protein 7.1 6.4 - g/dl No No Jul 17 8.2 informa informa 2017 [Mass/v tion in tion in 9:34 PM olume] source source in data data Serum or Plasma Albumin 3.4 3.4 - g/dl No No Jul 17 5.0 informa informa 2016 [Mass/v tion in tion in 9:34 PM olume] source source in data data Serum or Plasma Albumin 3.7 1.3 - g/dl High No Jul 17 /Globul 3.5 informa 2017 in tion in 9:34 PM [Mass source ratio] data in Serum or Plasma Albumin 0.9 1.0 - ratio Low GLOMERU Jul 17 /Globul 3.9 LAR 2017 in FILTRAT 9:34 PM [Mass ION ratio] RATE in INTERPR Serum ETATION or Normal Plasma Range: >60 mL/min/ 1.73 sq metersI f patient is Tia n, multipl y GFR by 1.120.* GFR only applies to adults over the age 18. Troponin I.cardiac [Mass/volume] in Serum or Plasma Observa Value Referen Units Interpr Notes Date tion ce etation Range Troponi 0.01 0.00 - ng/ml No No Jul 17 n 0.05 informa informa 2017 I.cardi tion in tion in 9:33 PM ac source source [Mass/v data data olume] in Serum or Plasma Additio YES No No No No Jul 17 nal informa informa informa informa 2017 comment tion in tion in tion in tion in 9:33 PM s RFC source source source source data data data data Microbi LISA No No No 0 - Jul 17 ology L 2133 informa informa informa 0.059 2017 studies 07/17/16 tion in tion in tion in ng/ml 9:33 PM (set) PV source source source (NEGATI data data data VE)> 0.059 ng/ml (POSITI VE) Ethanol [Mass/volume] in Serum or Plasma Observa Value Referen Units Interpr Notes Date tion ce etation Range Ethanol <3 20 - mg/dl Low "THIS Jul 17 300 MEASURE 2016 [Mass/v MENT IS 9:32 PM olume] USED in FOR Serum CLINICA or L Plasma PURPOSE S ONLY"CL INICALL Y INSIGNI FICANT: <20 mg/dlPO TENTIAL LY TOXIC: >250 mg/dl Troponin I.cardiac [Mass/volume] in Serum or Plasma Observa Value Referen Units Interpr Notes Date tion ce etation Range Troponi 0.01 0.00 - ng/ml No No Jul 17 n 0.05 informa informa 2017 I.cardi tion in tion in 9:33 PM ac source source [Mass/v data data olume] in Serum or Plasma Additio YES No No No No Jul 17 nal informa informa informa informa 2017 comment tion in tion in tion in tion in 9:33 PM s RFC source source source source data data data data Microbi LISA No No No 0 - Jul 17 ology L 2133 informa informa informa 0.059 2017 studies 07/17/16 tion in tion in tion in ng/ml 9:33 PM (set) PV source source source (NEGATI data data data VE)> 0.059 ng/ml (POSITI VE) Magnesium [Mass/volume] in Serum or Plasma Observa Value Referen Units Interpr Notes Date tion ce etation Range Magnesi 1.7 1.8 - mg/dL Low No Jul 17 um 2.4 informa 2016 [Mass/v tion in 9:28 PM olume] source in data Serum or Plasma Lipase [Enzymatic activity/volume] in Serum or Plasma Observa Value Referen Units Interpr Notes Date tion ce etation Range Lipase 93 73 - U/L No No Jul 17 [Enzyma 393 informa informa 2016 tic tion in tion in 9:27 PM activit source source y/volum data data e] in Serum or Plasma Platelet; Plt; Thrombocytes; Platelt; Thrb; Thrombocyte; Diff Pnl; Point in time Observa Value Referen Units Interpr Notes Date tion ce etation Range Leukocy 16.2 4.5 - K/uL High LISA Jul 17 lori 11.5 L 2019 2016 [#/volu 07/17/16 9:13 PM me] in PV Blood by Automat ed count Erythro 4.20 4.60 - M/uL Low No Jul 17 cytes 6.00 informa 2016 [#/volu tion in 9:13 PM me] in source Blood data by Automat ed count Hemoglo 13.4 14.0 - g/dL Low No Jul 17 bin 18.0 informa 2016 [Mass/v tion in 9:13 PM olume] source in data Blood Hematoc 39 40 - 54 % Low No Jul 17 rit informa 2017 [Volume tion in 9:13 PM source Fractio data n] of Blood by Automat ed count Erythro 93.3 80.0 - fL No No Jul 17 cyte 100 informa informa 2017 mean tion in tion in 9:13 PM corpusc source source ular data data volume [Entiti c volume] by Automat ed count Erythro 31.9 26.0 - pg No No Jul 17 cyte 32.0 informa informa 2016 mean tion in tion in 9:13 PM corpusc source source ular data data hemoglo bin [Entiti c mass] by Automat ed count Erythro 34.2 32.0 - g/dL No No Jul 17 cyte 36.0 informa informa 2017 mean tion in tion in 9:13 PM corpusc source source ular data data hemoglo bin concent ration [Mass/v olume] in Blood from Fetus by Automat ed count Erythro 14.9 11.5 - % High No Jul 17 cyte 14.5 informa 2016 distrib tion in 9:13 PM ution source width data [Ratio] by Automat ed count Platele 212 150 - K/uL No No Jul 17 ts 450 informa informa 2017 [#/volu tion in tion in 9:13 PM me] in source source Blood data data by Automat ed count Lymphoc 7.2 18.0 - % Low No Jul 17 ytes/10 42.0 informa 2017 0 tion in 9:13 PM leukocy source lori in data Blood by Automat ed count Monocyt 9.5 2.0 - % No Jul 17 es/100 11.0 informa informa 2017 leukocy tion in tion in 9:13 PM lori in source source Blood data data by Automat ed count Neutrop 82.7 50.0 - % High No Jul 17 hils.ba 70.0 informa 2016 nd tion in 9:13 PM form/10 source 0 data leukocy lori in Blood by Manual count Eosinop 0.40 1.00 - % Low No Jul 17 hils/10 3.00 informa 2017 0 tion in 9:13 PM leukocy source lori in data Blood by Automat ed count Basophi 0.20 0.00 - % No No Jul 17 ls/100 2.00 informa informa 2017 leukocy tion in tion in 9:13 PM lori in source source Blood data data by Automat ed count Lymphoc 1.17 0.60 - K/uL No No Jul 17 ytes/10 3.40 informa informa 2017 0 tion in tion in 9:13 PM leukocy source source lori in data data Blood by Automat ed count Monocyt 1.53 0.00 - K/uL High No Jul 17 es/100 0.90 informa 2016 leukocy tion in 9:13 PM lori in source Blood data by Automat ed count Neutrop 13.38 2.00 - K/uL High No Jul 17 hils.ba 6.90 informa 2017 nd tion in 9:13 PM form/10 source 0 data leukocy lori in Blood by Manual count Eosinop 0.06 0.00 - K/uL No No Jul 17 hils/10 0.70 informa informa 2017 0 tion in tion in 9:13 PM leukocy source source lori in data data Blood by Automat ed count Basophi 0.03 0.00 - K/uL No No Jul 17 ls/100 0.20 informa informa 2017 leukocy tion in tion in 9:13 PM lori in source source Blood data data by Automat ed count Manual SLIDE No No No No Jul 17 differe SCAN-OK informa informa informa informa 2017 ntial tion in tion in tion in tion in 9:13 PM perform source source source source ed data data data data [Presen ce] in Blood Influenza virus A \\T\\ B Ag Observa Value Referen Units Interpr Notes Date tion ce etation Range _INFLUENZA ANTIGEN A + B_ Influen NEGATIV No [NL:_NE No No Jul 17 za E informa GAT informa informa 2017 virus A tion in tion in tion in 9:03 PM Ag source source source [Presen data data data ce] in Unspeci fied specime n Influen NEGATIV No [NL:_NE No No Jul 17 za E informa GAT informa informa 2017 virus B tion in tion in tion in 9:03 PM Ag source source source [Presen data data data ce] in Unspeci fied specime n Lactate [Mass/volume] in Serum or Plasma Observa Value Referen Units Interpr Notes Date tion ce etation Range Lactate 1.10 0.40 - mmol/L No No Jul 17 2.00 informa informa 2017 [Mass/v tion in tion in 9:02 PM olume] source source in data data Serum or Plasma XR CHEST AP LA Observa Value Referen Units Interpr Notes Date tion ce etation Range XR \\.br\\ No No No No Jul 17 CHEST informa informa informa informa 2017 AP LA tion in tion in tion in tion in 8:24 PM source source source source data data data data [facility] L\\.br\\ [address]\\.br \\ [place] [place] [address]\\. br\\\\.br \\ ------- --NAME- ------- - NUMBER SEX AGE ADMIT DISC. XRAY# F/C TYPE\\.b r\\ VALE YESENIA [id number] M 61 07/17/16 07/17/16 [id number] XAB E/R\\.br \\ DATE OF : [birth year] M/R# [id number] PH#: RM [id number]\\. br\\ LOCATIO N: TRANSCR IBED: 7 8:54\\.b r\\ [place] [address] COMPLET ED:06/27 07/12 26 [facility] [address]\\. br\\ {REASON FOR CHEST: COUGH\\. br\\\\.br \\ PHYSICI AN: KAHN PH\\.br\\ \\.br\\\\. br\\==== ======= ======= ======= ======= ======= ======= ======= ======= ======= ======= =====\\. br\\ RADIOLO GY REPORT\\ .br\\=== ======= ======= ======= ======= ======= ======= ======= ======= ======= ======= ======\\ .br\\ORD ER DATE and TIME: 2023\\.b r\\\\.br\\ \\.br\\Hi story: 61-year -old male with cough. History of throat cancer. Positiv e\\.br\\s moking history .\\.br\\\\ .br\\Fin dings: PA and lateral radiogr aphs of the chest dated 07/18/19 17. Compari son\\.br \\is made with prior study from 07/27/19 16.\\.br \\\\.br\\O xygen tubing project s over the patient 's neck. The lungs are hyperex panded\\ .br\\and hyperlu cent, as before, consist ent with emphyse ma. Mild subsegm ental\\. br\\atel ectasis of the right base. No pleural effusio n or pneumot horax is seen.\\. br\\Hear t size is normal. Stent in the left lower neck, again noted. No acute\\. br\\disp laced rib fractur es are identif ied. Tiny metalli c foreign body of the left\\.b r\\chest anterio rly, again noted.\\ .br\\\\.b r\\Impre ssion:\\ .br\\\\.b r\\1. Mild subsegm ental atelect asis at the right base. Mild superim posed\\. br\\pneu monia cannot be exclude d.\\.br\\ \\.br\\2. Finding s of emphyse ma, again noted.\\ .br\\\\.b r\\\\.br\\ Electro nically Signed By:\\.br \\Saad WELDON MD,RADI OLOGIST \\.br\\Da te/Time : 7 08:54\\. br\\ CT HEAD WITHOUT Observa Value Referen Units Interpr Notes Date tion ce etation Range CT HEAD \\.br\\ No No No No Jul 17 informa informa informa informa 2016 WITHOUT tion in tion in tion in tion in 8:24 PM source source source source data data data data [facility] L\\.br\\ [address]\\.br \\ [facility] [place] [address]\\. br\\\\.br \\ ------- --NAME- ------- - NUMBER SEX AGE ADMIT DISC. XRAY# F/C TYPE\\.b r\\ AKANKSHA PATTERSON [id number] M 61 07/17/16 55933 XAB E/R\\.br \\ DATE OF : 9[birth year] M/R# [id number] PH#: RM ERFFF\\. br\\ LOCATIO N: TRANSCR IBED: 7 21:44\\. br\\ CT HEAD WITHOUT [id number] COMPLET ED: [id number]\\. br\\ {REASON FOR TEST: VERTIGO \\.br\\\\. br\\ PHYSICI AN: CRISS PH\\.br\\ \\.br\\\\. br\\==== ======= ======= ======= ======= ======= ======= ======= ======= ======= ======= =====\\. br\\ RADIOLO GY REPORT\\ .br\\=== ======= ======= ======= ======= ======= ======= ======= ======= ======= ======= ======\\ .br\\ORD ER DATE and TIME: 2023\\.b r\\\\.br\\ \\.br\\HI STORY: Hypoten skinny, and vertigo . History of throat carcino ma.\\.br \\\\.br\\C OMPARIS ON: 12/22/15 \\.br\\\\. br\\TECH NIQUE: Axial unenhan emilia imaging was perform ed from the skull base through \\.br\\th e vertex. \\.br\\\\. br\\Dose reducti on achieve d by adjusti ng mA and/or kV based on patient size.\\. br\\\\.br \\FINDIN GS: Mild general ized cortica l atrophy . No evidenc e of bleed, mass, mass\\.b r\\effec t, or midline shift. No evidenc e of infarct .\\.br\\\\ .br\\Samantha varium is grossly intact and the orbits are unremar kable\\. br\\\\.br \\IMPRES SKINNY: Stable mild atrophy without evidenc e of acute intracr anial\\. br\\abno rmality . Recomme nd MRI examina tion if the patient has persist ent\\.br \\unexpl ained neurolo gic deficit .\\.br\\\\ .br\\Fin dings transmi tted to the ED clinici an via this dictate d report at about\\. br\\9:40 PM\\.br\\ \\.br\\\\. br\\\\.br \\\\.br\\\\ .br\\Lynn ctronic ally Signed By:\\.br \\RADHA MILLER MD,RADI OLOGIST \\.br\\Da te/Time : 7 21:44\\. br\\ XR MODIFIED BA SWALLOW Observa Value Referen Units Interpr Notes Date tion ce etation Range XR \\.br\\ No No No No Dec 15 MODIFIE informa informa informa informa 2016 D BA tion in tion in tion in tion in 9:17 AM SWALLOW source source source source data data data data [facility]\\.br\\ [address]\\.br \\ [facility] [address]\\. br\\\\.br \\ ------- --NAME- ------- - NUMBER SEX AGE ADMIT DISC. XRAY# F/C TYPE\\.b r\\ AKANKSHA PATTERSON [id number] M 60 01/11/16 01/11/16 03964 XAB O/P\\.br \\ DATE OF : 9[birth year] M/R# [id number] PH#: RM\\.br\\ LOCATIO N: TRANSCR IBED: 6 10:24\\. br\\ XR MODIFIE D BA SWALLOW 01998 COMPLET ED: 72331\\. br\\ {REASON FOR TEST: DYSPHAG IA\\.br\\ \\.br\\ PHYSICI AN: LEIGHTON MUH\\.br \\\\.br\\\\ .br\\=== ======= ======= ======= ======= ======= ======= ======= ======= ======= ======= ======\\ .br\\ RADIOLO GY REPORT\\ .br\\=== ======= ======= ======= ======= ======= ======= ======= ======= ======= ======= ======\\ .br\\ORD ER DATE and TIME: 016 0917\\.b r\\\\.br\\ \\.br\\Ex aminati on: Modifie d barium swallow 01/11/20 16\\.br\\ \\.br\\Hi story: 60-year -old male with dysphag ia. History of larynge al cancer status\\ .br\\pos t radiati on therapy .\\.br\\\\ .br\\Sarah hnique: With the patient standin g in lateral project ion, multipl e barium\\ .br\\con sistenc ies were adminis tered orally by the speech patholo gist under\\. br\\fluo roscopi c observa tion. A total of 2 minutes of fluoros copy time was\\.br \\utiliz ed.\\.br \\\\.br\\F indings :\\.br\\\\ .br\\The oral phase was essenti ally normal. No signifi cant free spill. Moderat e\\.br\\p harynge al weaknes s with moderat e vallecu lar and mild pirifor m sinus residue s.\\.br\\ Aspirat ion with thin liquids . No penetra tion or aspirat ion with the other\\. br\\cons istenci es, includi ng nectar, applesa uce, mechani samantha soft, and cracker s\\.br\\\\ .br\\Imp ression :\\.br\\\\ .br\\1. Aspirat ion with thin liquids . No aspirat ion with nectar or the other\\. br\\cons istenci es.\\.br \\\\.br\\2 . Moderat e pharyng eal weaknes s with vallecu lar and pirifor m sinus residue s.\\.br\\ \\.br\\3. For recomme ndation s and additio nal finding s, please refer to the speech\\ .br\\pat hologis t's report. \\.br\\\\. br\\\\.br \\Electr onicall y Signed By:\\.br \\J. NATHANAEL WELDON MD,RADI OLOGIST \\.br\\Da te/Time : 6 10:24\\. br\\ CT HEAD WITHOUT Observa Value Referen Units Interpr Notes Date tion ce etation Range CT HEAD \\.br\\ No No No No Dec 21 informa informa informa informa 2015 WITHOUT tion in tion in tion in tion in 4:53 PM source source source source data data data data [facility]\\.br\\ [address]\\.br \\ [facility] [place] [address]\\. br\\\\.br \\ ------- --NAME- ------- - NUMBER SEX AGE ADMIT DISC. XRAY# F/C TYPE\\.b r\\ VALEMARY PATTERSON [id number] M 60 12/22/15 20428 XAB E/R\\.br \\ DATE OF : 9[birth year] M/R# [id number] PH#: [facility]\\. br\\ LOCATIO N: TRANSCR IBED: 6 17:28\\. br\\ CT HEAD WITHOUT [id number] COMPLET ED:11/27 10/11 17:35 [facility] [address]\\. br\\ {REASON FOR TEST: syncope \\.br\\\\. br\\ PHYSICI AN: KAHN PH\\.br\\ \\.br\\\\. br\\==== ======= ======= ======= ======= ======= ======= ======= ======= ======= ======= =====\\. br\\ RADIOLO GY REPORT\\ .br\\=== ======= ======= ======= ======= ======= ======= ======= ======= ======= ======= ======\\ .br\\ORD ER DATE and TIME: 016 1653\\.b r\\\\.br\\ \\.br\\HI STORY: Weaknes s and syncope \\.br\\\\. br\\COMP ARISON: None\\.b r\\\\.br\\ TECHNIQ UE: Axial unenhan emilia imaging was perform ed from the skull base through \\.br\\th e vertex. \\.br\\\\. br\\Swathi ent dose reducti on was achieve d by adjustm ent of mA and/or kV accordi ng to\\.br\\ patient 's size.\\. br\\\\.br \\FINDIN GS: No intracr anial mass, mass effect or midline shift. No evidenc e of\\.br\\ bleed or infarct ion.\\.b r\\\\.br\\ Mild chronic paranas al sinusit is is noted. Orbits are unremar kable\\. br\\\\.br \\IMPRES SKINNY: Negativ e unenhan emilia CT of the brain. Recomme nd examina tion of the\\.br \\patien t has persist ent unexpla ined neurolo gic deficit .\\.br\\\\ .br\\Mil d chronic paranas al sinusit is.\\.br \\\\.br\\\\ .br\\\\.b r\\\\.br\\ Electro nically Signed By:\\.br \\RADHA MILLER MD,RADI OLOGIST \\.br\\Da te/Time : 6 17:28\\. br\\ XR MODIFIED BA SWALLOW Observa Value Referen Units Interpr Notes Date tion ce etation Range XR \\.br\\ No No No No Apr 4 MODIFIE informa informa informa informa 2016 D BA tion in tion in tion in tion in 10:49 SWALLOW source source source source AM data data data data [facility]\\.br\\ [address]\\.br \\ [facility] [place] [address]\\. br\\\\.br \\ ------- --NAME- ------- - NUMBER SEX AGE ADMIT DISC. XRAY# F/C TYPE\\.b r\\ VALEMARY PATTERSON [id number] M 60 07/28/15 33991 XA I/P\\.br \\ DATE OF : 9[birth year] M/R# [id number] PH#: RM 252\\.br \\ LOCATIO N: TRANSCR IBED: 6 12:28\\. br\\ XR MODIFIE D BA SWALLOW 01653 COMPLET ED: 08/11 10:50 AJJ [id number]\\. br\\ {REASON FOR TEST: DIFF SWALLOW ING\\.br \\\\.br\\ PHYSICI AN: SHELLIE IMR\\.br \\\\.br\\\\ .br\\=== ======= ======= ======= ======= ======= ======= ======= ======= ======= ======= ======\\ .br\\ RADIOLO GY REPORT\\ .br\\=== ======= ======= ======= ======= ======= ======= ======= ======= ======= ======= ======\\ .br\\ORD ER DATE and TIME: 016 1049\\.b r\\\\.br\\ \\.br\\MO DIFIED BARIUM SWALLOW WITH SPEECH THERAPY , 6:\\.br\\ \\.br\\CL INICAL HISTORY : Dysphag ia with history of throat carcino ma\\.br\\ \\.br\\CO MPARISO N: None.\\. br\\\\.br \\TECHNI QUE: Lateral video fluoros copy was perform ed in conjuct ion with speech\\ .br\\the rapy. Multipl e consist encies of barium were adminis tered to assess\\ .br\\swa paula diopalana n. 2.8 minutes of fluoros copy time was utilize d for the\\.br \\exam.\\ .br\\\\.b r\\FINDI NGS: There is mild oral weaknes s manifes dg by prematu re loss with\\.b r\\apple sauce consist ency. There is moderat e pharyng eal weaknes s with deep\\.b r\\laryn geal penetra tion and aspirat ion of thin liquids . With nectar and honey\\. br\\thic k consist ency, there is no larynge al penetra tion or aspirat ion. There is\\.br\\ moderat e vallecu lar residue , which only mildly improve s with additio nal\\.br \\swallo w. As the meal progres ses, there is pharyng eal wall residue , most\\.b r\\promi nent with applesa uce consist ency. The cervica l phase of swallow ing is\\.br\\ within normal limits. \\.br\\\\. br\\IMPR ESSION: \\.br\\\\. br\\1. Moderat e oral pharyng eal weaknes s with aspirat ion of thin liquids . The\\.br \\patien t is safe with nectar consist ency. Please refer to the speech\\ .br\\pat hologis t report for further comment s and recomme ndation s.\\.br\\ \\.br\\\\. br\\Elec tronica lly Signed By:\\.br \\ALEX LYLES MD,RADI OLOGIST \\.br\\Da te/Time : 6 12:28\\. br\\ Basic metabolic 2000 panel in Serum or Plasma Observa Value Referen Units Interpr Notes Date tion ce etation Range Sodium 129 136 - mmol/L Low No Jul 4 [Moles/ 145 informa 2016 volume] tion in 6:23 AM in source Serum data or Plasma Potassi 4.2 3.5 - mmol/L No No Apr 4 um 5.1 informa informa 2016 [Moles/ tion in tion in 6:23 AM volume] source source in data data Serum or Plasma Chlorid 93 98 - mmol/L Low No Apr 4 e 107 informa 2015 [Moles/ tion in 6:23 AM volume] source in data Serum or Plasma Carbon 28 21 - 32 mmol/L No No Apr 4 dioxide informa informa 2016 , total tion in tion in 6:23 AM source source [Moles/ data data volume] in Blood Anion 12 5 - 15 mmol/L No No Apr 4 gap in informa informa 2016 Serum tion in tion in 6:23 AM or source source Plasma data data Glucose 127 70 - mg/dl High No Apr 4 120 informa 2016 [Mass/v tion in 6:23 AM olume] source in data Serum or Plasma Urea 11 7 - 18 mg/dl No No Apr 4 nitroge informa informa 2016 n tion in tion in 6:23 AM [Mass/v source source olume] data data in Serum or Plasma Creatin 1.2 0.6 - mg/dl No No Apr 4 ine 1.3 informa informa 2016 [Mass/v tion in tion in 6:23 AM olume] source source in data data Serum or Plasma AGE 60 No yrs No No Apr 4 informa informa informa 2016 tion in tion in tion in 6:23 AM source source source data data data GFR >60 No ml/min No No Apr 4 informa informa informa 2016 tion in tion in tion in 6:23 AM source source source data data data Calcium 8.4 8.5 - mg/dl Low No Apr 4 10.1 informa 2016 [Mass/v tion in 6:23 AM olume] source in data Serum or Plasma Urea 9 6 - 25 ratio No No Apr 4 nitroge informa informa 2016 n/Creat tion in tion in 6:23 AM inine source source [Mass data data ratio] in Serum or Plasma Osmolal 260 272 - No Low GLOMERU Apr 4 ity of 295 informa LAR 2016 Unspeci tion in FILTRAT 6:23 AM fied source ION specime data RATE n INTERPR ETATION Normal Range: >60 mL/min/ 1.73 sq metersI f patient is Tia n, multipl y GFR by 1.120.* GFR only applies to adults over the age 18. CBC W DIFF AUTOMATED Observa Value Referen Units Interpr Notes Date tion ce etation Range Leukocy 9.8 4.5 - K/uL No No Jul 4 lori 11.5 informa inform2015 [#/volu tion in tion in 6:19 AM me] in source source Blood data data by Automat ed count Erythro 4.08 4.60 - M/uL Low No Jul 4 cytes 6.00 inform2015 [#/volu tion in 6:19 AM me] in source Blood data by Automat ed count Hemoglo 12.3 14.0 - g/dL Low No Jul 30 bin 18.0 inform2015 [Mass/v tion in 6:19 AM olume] source in data Blood Hematoc 36 40 - 54 % Low No Jul 4 rit inform2015 [Volume tion in 6:19 AM source Fractio data n] of Blood by Automat ed count Erythro 88.0 80.0 - fL No No Jul 30 cyte 100 inform inform2015 mean tion in tion in 6:19 AM corpusc source source ular data data volume [Entiti c volume] by Automat ed count Erythro 30.1 26.0 - pg No No Jul 30 cyte 32.0 informa informa 2015 mean tion in tion in 6:19 AM corpusc source source ular data data hemoglo bin [Entiti c mass] by Automat ed count Erythro 34.3 32.0 - g/dL No No Jul 30 cyte 36.0 informa informa 2015 mean tion in tion in 6:19 AM corpusc source source ular data data hemoglo bin concent ration [Mass/v olume] in Blood from Fetus by Automat ed count Erythro 14.6 11.5 - % High No Jul 30 cyte 14.5 inform2015 distrib tion in 6:19 AM ution source width data [Ratio] by Automat ed count Platele 114 150 - K/uL Low No Jul 4 ts 450 inform2015 [#/volu tion in 6:19 AM me] in source Blood data by Automat ed count Lymphoc 4.0 18.0 - % Low No Jul 30 ytes/10 42.0 informa 2016 0 tion in 6:19 AM leukocy source lori in data Blood by Automat ed count Monocyt 11.5 2.0 - % High No Apr 4 es/100 11.0 informa 2016 leukocy tion in 6:19 AM lori in source Blood data by Automat ed count Neutrop 81.1 50.0 - % High No Apr 4 hils.ba 70.0 informa 2016 nd tion in 6:19 AM form/10 source 0 data leukocy lori in Blood by Manual count Eosinop 3.20 1.00 - % High No Apr 4 hils/10 3.00 informa 2016 0 tion in 6:19 AM leukocy source lori in data Blood by Automat ed count Basophi 0.20 0.00 - % No No Apr 4 ls/100 2.00 informa informa 2016 leukocy tion in tion in 6:19 AM lori in source source Blood data data by Automat ed count Lymphoc 0.39 0.60 - K/uL Low No Apr 4 ytes/10 3.40 informa 2016 0 tion in 6:19 AM leukocy source lori in data Blood by Automat ed count Monocyt 1.13 0.00 - K/uL High No Apr 4 es/100 0.90 informa 2016 leukocy tion in 6:19 AM lori in source Blood data by Automat ed count Neutrop 7.94 2.00 - K/uL High No Apr 4 hils.ba 6.90 informa 2016 nd tion in 6:19 AM form/10 source 0 data leukocy lori in Blood by Manual count Eosinop 0.31 0.00 - K/uL No No Apr 4 hils/10 0.70 informa informa 2016 0 tion in tion in 6:19 AM leukocy source source lori in data data Blood by Automat ed count Basophi 0.02 0.00 - K/uL No No Apr 4 ls/100 0.20 informa informa 2016 leukocy tion in tion in 6:19 AM lori in source source Blood data data by Automat ed count Manual NOT No No No No Apr 4 differe INDICAT informa informa informa informa 2016 ntial ED tion in tion in tion in tion in 6:19 AM perform source source source source ed data data data data [Presen ce] in Blood Basic metabolic 2000 panel in Serum or Plasma Observa Value Referen Units Interpr Notes Date tion ce etation Range Sodium 131 136 - mmol/L Low No Apr 3 [Moles/ 145 informa 2015 volume] tion in 10:39 in source AM Serum data or Plasma Potassi 4.5 3.5 - mmol/L No No Apr 3 um 5.1 informa informa 2015 [Moles/ tion in tion in 10:39 volume] source source AM in data data Serum or Plasma Chlorid 96 98 - mmol/L Low No Apr 3 e 107 informa 2015 [Moles/ tion in 10:39 volume] source AM in data Serum or Plasma Carbon 24 21 - 32 mmol/L No No Apr 3 dioxide informa informa 2016 , total tion in tion in 10:39 source source AM [Moles/ data data volume] in Blood Anion 16 5 - 15 mmol/L High No Apr 3 gap in informa 2016 Serum tion in 10:39 or source AM Plasma data Glucose 118 70 - mg/dl No No Apr 3 120 informa informa 2016 [Mass/v tion in tion in 10:39 olume] source source AM in data data Serum or Plasma Urea 19 7 - 18 mg/dl High No Apr 3 nitroge informa 2016 n tion in 10:39 [Mass/v source AM olume] data in Serum or Plasma Creatin 1.6 0.6 - mg/dl High No Apr 3 ine 1.3 informa 2015 [Mass/v tion in 10:39 olume] source AM in data Serum or Plasma AGE 60 No yrs No No Apr 3 informa informa informa 2016 tion in tion in tion in 10:39 source source source AM data data data GFR 47 No ml/min No No Apr 3 informa informa informa 2016 tion in tion in tion in 10:39 source source source AM data data data Calcium 8.0 8.5 - mg/dl Low No Apr 3 10.1 informa 2016 [Mass/v tion in 10:39 olume] source AM in data Serum or Plasma Urea 12 6 - 25 ratio No No Apr 3 nitroge informa informa 2016 n/Creat tion in tion in 10:39 inine source source AM [Mass data data ratio] in Serum or Plasma Osmolal 266 272 - No Low GLOMERU Apr 3 ity of 295 informa LAR 2016 Unspeci tion in FILTRAT 10:39 fied source ION AM specime data RATE n INTERPR ETATION Normal Range: >60 mL/min/ 1.73 sq metersI f patient is Tia n, multipl y GFR by 1.120.* GFR only applies to adults over the age 18. CBC W DIFF AUTOMATED Observa Value Referen Units Interpr Notes Date tion ce etation Range Leukocy 9.6 4.5 - K/uL No No Jul 3 lori 11.5 informa informa 2015 [#/volu tion in tion in 10:29 me] in source source AM Blood data data by Automat ed count Erythro 4.01 4.60 - M/uL Low No Jul 29 cytes 6.00 inform2015 [#/volu tion in 10:29 me] in source AM Blood data by Automat ed count Hemoglo 12.4 14.0 - g/dL Low No Jul 29 bin 18.0 informa 2015 [Mass/v tion in 10:29 olume] source AM in data Blood Hematoc 35 40 - 54 % Low No Jul 3 rit informa 2016 [Volume tion in 10:29 source AM Fractio data n] of Blood by Automat ed count Erythro 88.0 80.0 - fL No No Jul 29 cyte 100 informa informa 2016 mean tion in tion in 10:29 corpusc source source AM ular data data volume [Entiti c volume] by Automat ed count Erythro 30.9 26.0 - pg No No Jul 29 cyte 32.0 informa informa 2016 mean tion in tion in 10:29 corpusc source source AM ular data data hemoglo bin [Entiti c mass] by Automat ed count Erythro 35.1 32.0 - g/dL No No Jul 3 cyte 36.0 informa informa 2016 mean tion in tion in 10:29 corpusc source source AM ular data data hemoglo bin concent ration [Mass/v olume] in Blood from Fetus by Automat ed count Erythro 14.6 11.5 - % High No Jul 3 cyte 14.5 informa 2016 distrib tion in 10:29 ution source AM width data [Ratio] by Automat ed count Platele 107 150 - K/uL Low No Apr 3 ts 450 informa 2016 [#/volu tion in 10:29 me] in source AM Blood data by Automat ed count Lymphoc 5.0 18.0 - % Low No Apr 3 ytes/10 42.0 informa 2016 0 tion in 10:29 leukocy source AM lori in data Blood by Automat ed count Monocyt 8.3 2.0 - % No No Apr 3 es/100 11.0 informa informa 2016 leukocy tion in tion in 10:29 lori in source source AM Blood data data by Automat ed count Neutrop 83.2 50.0 - % High No Apr 3 hils.ba 70.0 informa 2016 nd tion in 10:29 form/10 source AM 0 data leukocy lori in Blood by Manual count Eosinop 3.30 1.00 - % High No Apr 3 hils/10 3.00 informa 2016 0 tion in 10:29 leukocy source AM lori in data Blood by Automat ed count Basophi 0.20 0.00 - % No No Apr 3 ls/100 2.00 informa informa 2016 leukocy tion in tion in 10:29 lori in source source AM Blood data data by Automat ed count Lymphoc 0.48 0.60 - K/uL Low No Apr 3 ytes/10 3.40 informa 2016 0 tion in 10:29 leukocy source AM lori in data Blood by Automat ed count Monocyt 0.79 0.00 - K/uL No No Apr 3 es/100 0.90 informa informa 2016 leukocy tion in tion in 10:29 lori in source source AM Blood data data by Automat ed count Neutrop 7.95 2.00 - K/uL High No Apr 3 hils.ba 6.90 informa 2016 nd tion in 10:29 form/10 source AM 0 data leukocy lori in Blood by Manual count Eosinop 0.32 0.00 - K/uL No No Apr 3 hils/10 0.70 informa informa 2016 0 tion in tion in 10:29 leukocy source source AM lori in data data Blood by Automat ed count Basophi 0.02 0.00 - K/uL No No Apr 3 ls/100 0.20 informa informa 2016 leukocy tion in tion in 10:29 lori in source source AM Blood data data by Automat ed count Manual NOT No No No No Apr 3 differe INDICAT informa informa informa informa 2016 ntial ED tion in tion in tion in tion in 10:29 perform source source source source AM ed data data data data [Presen ce] in Blood Blood product units requested [#] Observa Value Referen Units Interpr Notes Date ti ce etation Range /LM30/PRODUCT REQUEST FORM: PACKED RED BLOOD CELLS/LM01/ Patient ID Number _[id number] 07/30/15.CAM. Patient's ABO Group and Rh _B_POSITIVE___ 07/30/15.CAM. Patient's Antibody Screen _NEGATIVE 07/30/15.CAM. /LM25//UP03/ Antibody ID (if indicated) _N/A 07/30/15.CAM. Donor ABO Group and Rh _B_POSITIVE 07/30/15.CAM. Donor Unit Number _[id number] 07/30/15.CAM. /LM50//UP03/ Donor Expiration Date _08/31/15 07/30/15.CAM. Crossmatch _COMPATIBLE 07/30/15.CAM. Crossmatch Expiration Date_08/01/15_[place]___/LM01/ 07/30/15.CAM. /LM20/CROSSMATCHED BLOOD IS HELD 3 DAYS ONLY. PLEASE REORDER IF BLOOD /LM53//UP01/ IS STILL REQUIRED./LM01/ Date................. Time..............Tech...................... COMMENT:_Notified_Walter_Barbara._07/29/15_@_2340_unit_ready_(cam) ____ 07/30/15.0314.CAM. /LM31/TO BE COMPLETED BY NURSING/LM01/ /LM01/Date of Transfusion: ..................... Unit Number: ................. I have verified that: 1. The recipient's name, hospital #,and arm band# on this form, the blood bag tag& the recipient's identification bracelet are the same. 2. The recipient's ABO and Rh type indicated on this form and the ABO and Rh indicated on the blood bag are the same. 3. The blood donor number on the bag and this form are the same. Signature of Transfusionist: .................................................. Blood Consent Signed: .................. IV Started: .................. Site.................................... Size.......................... Instructions regarding symptoms ......Pt ......S.O ...... Signature of nurses checking ID # and saline. (1) ............................ (2)................................ PRE-TRANSFUSION Baseline v/s T....... P....... R........ B/P........ Rate..... Time .................... v/s T....... P....... R........ B/P........ Rate..... Time .................... v/s T....... P....... R........ B/P........ Rate..... Time .................... v/s T....... P....... R........ B/P........ Rate..... Time .................... v/s T....... P....... R........ B/P........ Rate..... Time .................... v/s T....... P....... R........ B/P........ Rate..... Time .................... v/s T....... P....... R........ B/P........ Rate..... Amt NS Infused.................... Amt Blood/Component....................... Completion Time............................................................... VS 2 hrs after transfusion T........ P....... R....... B/P........ Rate...... See next flow sheet /LM43//UP27/Notation Symptoms of Transfusion Reaction:(Check all Applicable) ....... None ....... Shock ....... Uticaria ....... Chills, Shaking ....... Fever (Highest......) ....... Pain ....... Hematuria ....... Nausea ....... Respiratory Distress ....... Other ..................... If a Transfusion Reaction is suspected,IMMEDIATELY: 1. Discontinue infusion. 2. Keep line open with saline. 3. Notify physician. 4. Call the laboratory to collect blood sample. 5. Complete "Suspected Transfusion Reaction Forms" 6. Send blood bag, tubing and this form to lab. 7. Collect urine specimen and send to Lab. Blood product units requested [#] Observa Value Referen Units Interpr Notes Date tion ce etation Range /LM30/PRODUCT REQUEST FORM: PACKED RED BLOOD CELLS/LM01/ Patient ID Number _[id number] 07/30/15.CAM. Patient's ABO Group and Rh _B_POSITIVE___ 07/30/15.CAM. Patient's Antibody Screen _NEGATIVE 07/30/15.CAM. /LM25//UP03/ Antibody ID (if indicated) _N/A 07/30/15.CAM. Donor ABO Group and Rh _B_POSITIVE 07/30/15.CAM. Donor Unit Number _[id number] 07/30/15.CAM. /LM50//UP03/ Donor Expiration Date _08/31/15 07/30/15.CAM. Crossmatch _COMPATIBLE 07/30/15.CAM. Crossmatch Expiration Date_08/01/15_[place]___/LM01/ 07/30/15.CAM. /LM20/CROSSMATCHED BLOOD IS HELD 3 DAYS ONLY. PLEASE REORDER IF BLOOD /LM53//UP01/ IS STILL REQUIRED./LM01/ Date................. Time..............Tech...................... COMMENT:_Notified_Walter_Barbara._07/29/15_@_2340_unit_ready_([facility]) ____ 07/30/15.CAM. /LM31/TO BE COMPLETED BY NURSING/LM01/ /LM01/Date of Transfusion: ..................... Unit Number: ................. I have verified that: 1. The recipient's name, hospital #,and arm band# on this form, the blood bag tag& the recipient's identification bracelet are the same. 2. The recipient's ABO and Rh type indicated on this form and the ABO and Rh indicated on the blood bag are the same. 3. The blood donor number on the bag and this form are the same. Signature of Transfusionist: .................................................. Blood Consent Signed: .................. IV Started: .................. Site.................................... Size.......................... Instructions regarding symptoms ......Pt ......S.O ...... Signature of nurses checking ID # and saline. (1) ............................ (2)................................ PRE-TRANSFUSION Baseline v/s T....... P....... R........ B/P........ Rate..... Time .................... v/s T....... P....... R........ B/P........ Rate..... Time .................... v/s T....... P....... R........ B/P........ Rate..... Time .................... v/s T....... P....... R........ B/P........ Rate..... Time .................... v/s T....... P....... R........ B/P........ Rate..... Time .................... v/s T....... P....... R........ B/P........ Rate..... Time .................... v/s T....... P....... R........ B/P........ Rate..... Amt NS Infused.................... Amt Blood/Component....................... Completion Time............................................................... VS 2 hrs after transfusion T........ P....... R....... B/P........ Rate...... See next flow sheet /LM43//UP27/Notation Symptoms of Transfusion Reaction:(Check all Applicable) ....... None ....... Shock ....... Uticaria ....... Chills, Shaking ....... Fever (Highest......) ....... Pain ....... Hematuria ....... Nausea ....... Respiratory Distress ....... Other ..................... If a Transfusion Reaction is suspected,IMMEDIATELY: 1. Discontinue infusion. 2. Keep line open with saline. 3. Notify physician. 4. Call the laboratory to collect blood sample. 5. Complete "Suspected Transfusion Reaction Forms" 6. Send blood bag, tubing and this form to lab. 7. Collect urine specimen and send to Lab. Blood product units requested [#] Observa Value Referen Units Interpr Notes Date tion ce etation Range /LM30/PRODUCT REQUEST FORM: PACKED RED BLOOD CELLS/LM01/ Patient ID Number _[id number] 07/30/15.CAM. Patient's ABO Group and Rh _B_POSITIVE___ 07/30/15.CAM. Patient's Antibody Screen _NEGATIVE 07/30/15.CAM. /LM25//UP03/ Antibody ID (if indicated) _N/A 07/30/15.CAM. Donor ABO Group and Rh _B_POSITIVE 07/30/15.CAM. Donor Unit Number _[id number] 07/30/15.CAM. /LM50//UP03/ Donor Expiration Date _08/31/15 07/30/15.CAM. Crossmatch _COMPATIBLE 07/30/15.CAM. Crossmatch Expiration Date_08/01/15_[place]___/LM01/ 07/30/15.CAM. /LM20/CROSSMATCHED BLOOD IS HELD 3 DAYS ONLY. PLEASE REORDER IF BLOOD /LM53//UP01/ IS STILL REQUIRED./LM01/ Date................. Time..............Tech...................... COMMENT:_Richard_Walter_Barbara._07/29/15_@_2340_unit_ready_([facility]) ____ 07/30/15.CAM. /LM31/TO BE COMPLETED BY NURSING/LM01/ /LM01/Date of Transfusion: ..................... Unit Number: ................. I have verified that: 1. The recipient's name, hospital #,and arm band# on this form, the blood bag tag& the recipient's identification bracelet are the same. 2. The recipient's ABO and Rh type indicated on this form and the ABO and Rh indicated on the blood bag are the same. 3. The blood donor number on the bag and this form are the same. Signature of Transfusionist: .................................................. Blood Consent Signed: .................. IV Started: .................. Site.................................... Size.......................... Instructions regarding symptoms ......Pt ......S.O ...... Signature of nurses checking ID # and saline. (1) ............................ (2)................................ PRE-TRANSFUSION Baseline v/s T....... P....... R........ B/P........ Rate..... Time .................... v/s T....... P....... R........ B/P........ Rate..... Time .................... v/s T....... P....... R........ B/P........ Rate..... Time .................... v/s T....... P....... R........ B/P........ Rate..... Time .................... v/s T....... P....... R........ B/P........ Rate..... Time .................... v/s T....... P....... R........ B/P........ Rate..... Time .................... v/s T....... P....... R........ B/P........ Rate..... Amt NS Infused.................... Amt Blood/Component....................... Completion Time............................................................... VS 2 hrs after transfusion T........ P....... R....... B/P........ Rate...... See next flow sheet /LM43//UP27/Notation Symptoms of Transfusion Reaction:(Check all Applicable) ....... None ....... Shock ....... Uticaria ....... Chills, Shaking ....... Fever (Highest......) ....... Pain ....... Hematuria ....... Nausea ....... Respiratory Distress ....... Other ..................... If a Transfusion Reaction is suspected,IMMEDIATELY: 1. Discontinue infusion. 2. Keep line open with saline. 3. Notify physician. 4. Call the laboratory to collect blood sample. 5. Complete "Suspected Transfusion Reaction Forms" 6. Send blood bag, tubing and this form to lab. 7. Collect urine specimen and send to Lab. Blood product units requested [#] Observa Value Referen Units Interpr Notes Date tion ce etation Range /LM30/PRODUCT REQUEST FORM: PACKED RED BLOOD CELLS/LM01/ Patient ID Number _[id number] 07/30/15.CAM. Patient's ABO Group and Rh _B_POSITIVE___ 07/30/15.CAM. Patient's Antibody Screen _NEGATIVE 07/30/15.CAM. /LM25//UP03/ Antibody ID (if indicated) _N/A 07/30/15.CAM. Donor ABO Group and Rh _B_POSITIVE 07/30/15.CAM. Donor Unit Number _[id number] 07/30/15.CAM. /LM50//UP03/ Donor Expiration Date _08/31/15 07/30/15.CAM. Crossmatch _COMPATIBLE 07/30/15.CAM. Crossmatch Expiration Date_08/01/15_[place]___/LM01/ 07/30/15.CAM. /LM20/CROSSMATCHED BLOOD IS HELD 3 DAYS ONLY. PLEASE REORDER IF BLOOD /LM53//UP01/ IS STILL REQUIRED./LM01/ Date................. Time..............Tech...................... COMMENT:_Notified_Walter_Barbara._07/29/15_@_2340_unit_ready_([facility]) ____ 07/30/15.313.CAM. /LM31/TO BE COMPLETED BY NURSING/LM01/ /LM01/Date of Transfusion: ..................... Unit Number: ................. I have verified that: 1. The recipient's name, hospital #,and arm band# on this form, the blood bag tag& the recipient's identification bracelet are the same. 2. The recipient's ABO and Rh type indicated on this form and the ABO and Rh indicated on the blood bag are the same. 3. The blood donor number on the bag and this form are the same. Signature of Transfusionist: .................................................. Blood Consent Signed: .................. IV Started: .................. Site.................................... Size.......................... Instructions regarding symptoms ......Pt ......S.O ...... Signature of nurses checking ID # and saline. (1) ............................ (2)................................ PRE-TRANSFUSION Baseline v/s T....... P....... R........ B/P........ Rate..... Time .................... v/s T....... P....... R........ B/P........ Rate..... Time .................... v/s T....... P....... R........ B/P........ Rate..... Time .................... v/s T....... P....... R........ B/P........ Rate..... Time .................... v/s T....... P....... R........ B/P........ Rate..... Time .................... v/s T....... P....... R........ B/P........ Rate..... Time .................... v/s T....... P....... R........ B/P........ Rate..... Amt NS Infused.................... Amt Blood/Component....................... Completion Time............................................................... VS 2 hrs after transfusion T........ P....... R....... B/P........ Rate...... See next flow sheet /LM43//UP27/Notation Symptoms of Transfusion Reaction:(Check all Applicable) ....... None ....... Shock ....... Uticaria ....... Chills, Shaking ....... Fever (Highest......) ....... Pain ....... Hematuria ....... Nausea ....... Respiratory Distress ....... Other ..................... If a Transfusion Reaction is suspected,IMMEDIATELY: 1. Discontinue infusion. 2. Keep line open with saline. 3. Notify physician. 4. Call the laboratory to collect blood sample. 5. Complete "Suspected Transfusion Reaction Forms" 6. Send blood bag, tubing and this form to lab. 7. Collect urine specimen and send to Lab. Blood product units requested [#] Observa Value Referen Units Interpr Notes Date tion ce etation Range /LM30/PRODUCT REQUEST FORM: PACKED RED BLOOD CELLS/LM01/ Patient ID Number _[id number] 07/30/15.CAM. Patient's ABO Group and Rh _B_POSITIVE___ 07/30/15.CAM. Patient's Antibody Screen _NEGATIVE 07/30/15.CAM. /LM25//UP03/ Antibody ID (if indicated) _N/A 07/30/15.CAM. Donor ABO Group and Rh _B_POSITIVE 07/30/15.CAM. Donor Unit Number _[id number] 07/30/15.CAM. /LM50//UP03/ Donor Expiration Date _08/31/15 07/30/15.CAM. Crossmatch _COMPATIBLE 07/30/15.CAM. Crossmatch Expiration Date_08/01/15_[place]___/LM01/ 07/30/15.CAM. /LM20/CROSSMATCHED BLOOD IS HELD 3 DAYS ONLY. PLEASE REORDER IF BLOOD /LM53//UP01/ IS STILL REQUIRED./LM01/ Date................. Time..............Tech...................... COMMENT:_Notified_Walter_Barbara._07/29/15_@_2340_unit_ready_([facility]) ____ 07/30/15.CAM. /LM31/TO BE COMPLETED BY NURSING/LM01/ /LM01/Date of Transfusion: ..................... Unit Number: ................. I have verified that: 1. The recipient's name, hospital #,and arm band# on this form, the blood bag tag& the recipient's identification bracelet are the same. 2. The recipient's ABO and Rh type indicated on this form and the ABO and Rh indicated on the blood bag are the same. 3. The blood donor number on the bag and this form are the same. Signature of Transfusionist: .................................................. Blood Consent Signed: .................. IV Started: .................. Site.................................... Size.......................... Instructions regarding symptoms ......Pt ......S.O ...... Signature of nurses checking ID # and saline. (1) ............................ (2)................................ PRE-TRANSFUSION Baseline v/s T....... P....... R........ B/P........ Rate..... Time .................... v/s T....... P....... R........ B/P........ Rate..... Time .................... v/s T....... P....... R........ B/P........ Rate..... Time .................... v/s T....... P....... R........ B/P........ Rate..... Time .................... v/s T....... P....... R........ B/P........ Rate..... Time .................... v/s T....... P....... R........ B/P........ Rate..... Time .................... v/s T....... P....... R........ B/P........ Rate..... Amt NS Infused.................... Amt Blood/Component....................... Completion Time............................................................... VS 2 hrs after transfusion T........ P....... R....... B/P........ Rate...... See next flow sheet /LM43//UP27/Notation Symptoms of Transfusion Reaction:(Check all Applicable) ....... None ....... Shock ....... Uticaria ....... Chills, Shaking ....... Fever (Highest......) ....... Pain ....... Hematuria ....... Nausea ....... Respiratory Distress ....... Other ..................... If a Transfusion Reaction is suspected,IMMEDIATELY: 1. Discontinue infusion. 2. Keep line open with saline. 3. Notify physician. 4. Call the laboratory to collect blood sample. 5. Complete "Suspected Transfusion Reaction Forms" 6. Send blood bag, tubing and this form to lab. 7. Collect urine specimen and send to Lab. ABO & Rh group panel in Blood Observa Value Referen Units Interpr Notes Date tion ce etation Range /LM30/PRODUCT REQUEST FORM: PACKED RED BLOOD CELLS/LM01/ Patient ID Number _[id number] 07/29/15.CAM. Patient's ABO Group and Rh _B_POSITIVE___ 07/29/15.CAM. Patient's Antibody Screen _NEGATIVE 07/29/15.CAM. /LM25//UP03/ Antibody ID (if indicated) _N/A 07/29/15.CAM. Donor ABO Group and Rh _B_POSITIVE 07/29/15.CAM. Donor Unit Number _[id number] 07/29/15.CAM. /LM50//UP03/ Donor Expiration Date _08/31/15 07/29/15.CAM. Crossmatch _COMPATIBLE 07/29/15.CAM. Crossmatch Expiration Date_08/01/15_[place]___/LM01/ 07/29/15.CAM. /LM20/CROSSMATCHED BLOOD IS HELD 3 DAYS ONLY. PLEASE REORDER IF BLOOD /LM53//UP01/ IS STILL REQUIRED./LM01/ Date................. Time..............Tech...................... COMMENT:_Notified_Walter_Barbara._unit_ready_@_2327_([facility]) ____ 07/29/15.2324.CAM. /LM31/TO BE COMPLETED BY NURSING/LM01/ /LM01/Date of Transfusion: ..................... Unit Number: ................. I have verified that: 1. The recipient's name, hospital #,and arm band# on this form, the blood bag tag& the recipient's identification bracelet are the same. 2. The recipient's ABO and Rh type indicated on this form and the ABO and Rh indicated on the blood bag are the same. 3. The blood donor number on the bag and this form are the same. Signature of Transfusionist: .................................................. Blood Consent Signed: .................. IV Started: .................. Site.................................... Size.......................... Instructions regarding symptoms ......Pt ......S.O ...... Signature of nurses checking ID # and saline. (1) ............................ (2)................................ PRE-TRANSFUSION Baseline v/s T....... P....... R........ B/P........ Rate..... Time .................... v/s T....... P....... R........ B/P........ Rate..... Time .................... v/s T....... P....... R........ B/P........ Rate..... Time .................... v/s T....... P....... R........ B/P........ Rate..... Time .................... v/s T....... P....... R........ B/P........ Rate..... Time .................... v/s T....... P....... R........ B/P........ Rate..... Time .................... v/s T....... P....... R........ B/P........ Rate..... Amt NS Infused.................... Amt Blood/Component....................... Completion Time............................................................... VS 2 hrs after transfusion T........ P....... R....... B/P........ Rate...... See next flow sheet /LM43//UP27/Notation Symptoms of Transfusion Reaction:(Check all Applicable) ....... None ....... Shock ....... Uticaria ....... Chills, Shaking ....... Fever (Highest......) ....... Pain ....... Hematuria ....... Nausea ....... Respiratory Distress ....... Other ..................... If a Transfusion Reaction is suspected, IMMEDIATELY: 1. Discontinue infusion. 2. Keep line open with saline. 3. Notify physician. 4. Call the laboratory to collect blood sample. 5. Complete "Suspected Transfusion Reaction Forms" 6. Send blood bag, tubing and this form to lab. 7. Collect urine specimen and send to lab. BLOOD BANK ORDER Observa Value Referen Units Interpr Notes Date tion ce etation Range ORDER RECEIVED Hemoglobin [Presence] in Urine by Test strip Observa Value Referen Units Interpr Notes Date tion ce etation Range Hemoglo NEGATIV No [NL:NEG No No Jul 2 bin E informa ATI informa informa 2015 [Presen tion in tion in tion in 9:29 PM ce] in source source source Urine data data data by Test strip Bacteria identified in Urine by Culture Observa Value Referen Units Interpr Notes Date tion ce etation Range Collect CLEAN No No No Jul 4 ion CATCH informa informa informa 2016 method tion in tion in tion in 10:30 [Type] source source source AM of data data data Specime n STATUS PRELIMI No No No No Jul 4 NARY informa informa informa informa 2016 tion in tion in tion in tion in 10:30 source source source source AM data data data data RESULT: NO No No No No Apr 4 GROWTH informa informa informa informa 2016 1ST DAY tion in tion in tion in tion in 10:30 source source source source AM data data data data RESULTE CRW No No No No Apr 4 D BY informa informa informa informa 2016 tion in tion in tion in tion in 10:30 source source source source AM data data data data SEND Y No No No No Apr 4 PHARM/I informa informa informa informa 2016 C tion in tion in tion in tion in 10:30 source source source source AM data data data data SEND TO N No No No Apr 4 ER informa informa informa 2016 tion in tion in tion in 10:30 source source source AM data data data STATUS FINAL No No No No Apr 4 informa informa informa informa 2016 tion in tion in tion in tion in 10:30 source source source source AM data data data data RESULT: NO No No No No Apr 4 GROWTH informa informa informa informa 2016 2ND DAY tion in tion in tion in tion in 10:30 source source source source AM data data data data RESULTE MDA No No No No Apr 4 D BY informa informa informa informa 2016 tion in tion in tion in tion in 10:30 source source source source AM data data data data SEND Y No No No No Apr 4 PHARM/I informa informa informa informa 2016 C tion in tion in tion in tion in 10:30 source source source source AM data data data data SEND TO N No No No Apr 4 ER informa informa informa 6.1031. 2016 tion in tion in tion in MDA.COM 10:30 source source source PLETE AM data data data Urinalysis complete panel in Urine Observa Value Referen Units Interpr Notes Date tion ce etation Range Color YELLOW NL: No No No Apr 2 of Negativ informa informa informa 2016 Urine e tion in tion in tion in 6:37 AM source source source data data data Appeara SL NL: No No No Apr 2 nce of CLOUD Negativ informa informa informa 2016 Urine e tion in tion in tion in 6:37 AM source source source data data data Glucose TRACE NL: No No No Apr 2 Negativ informa informa informa 2016 [Mass/v e tion in tion in tion in 6:37 AM olume] source source source in data data data Urine by Test strip Bilirub NEG NL: No No No Apr 2 in Negativ informa informa informa 2016 [Presen e tion in tion in tion in 6:37 AM ce] in source source source Urine data data data by Test strip Ketones NEG NL: No No No Apr 2 Negativ informa informa informa 2016 [Presen e tion in tion in tion in 6:37 AM ce] in source source source Serum data data data or Plasma Specifi 1.025 NL: No No No Apr 2 c 1.00 >= informa informa informa 2016 gravity 1.030 tion in tion in tion in 6:37 AM of source source source Urine data data data Hemoglo 1+ NL: No Abnorma No Apr 2 bin Negativ informa l informa 2016 [Presen e tion in tion in 6:37 AM ce] in source source Urine data data by Test strip pH of 5.5 NL: No No No Apr 2 Urine informa informa informa 2016 by Test tion in tion in tion in 6:37 AM strip source source source data data data Protein 1+ NL: No Abnorma No Apr 2 Negativ informa l informa 2016 [Presen e tion in tion in 6:37 AM ce] in source source Urine data data by Test strip Urobili 0.2 NL: 0.2 No No No Apr 2 nogen - 1.0 informa informa informa 2016 [Mass/v tion in tion in tion in 6:37 AM olume] source source source in data data data Urine by Test strip Nitrite NEG NL: No No No Apr 2 Negativ informa informa informa 2016 [Presen e tion in tion in tion in 6:37 AM ce] in source source source Urine data data data by Test strip Leukocy NEG NL: No No { Apr 2 lori Negativ informa informa MICROSC 2016 [#/volu e tion in tion in OPIC 6:37 AM me] in source source Blood data data See by Below Automat ed count Leukocy 3 - 5 NL: No Abnorma No Apr 2 lori NEGATIV informa l informa 2016 [#/volu E tion in tion in 6:37 AM me] in source source Blood data data by Automat ed count Erythro RARE NL: No No No Apr 2 cytes NEGATIV informa informa informa 2016 [#/volu E tion in tion in tion in 6:37 AM me] in source source source Blood data data data by Automat ed count Epithel 3 - 5 NL: No Abnorma No Apr 2 ial NEGATIV informa l informa 2016 cells E tion in tion in 6:37 AM [#/area source source ] in data data Urine sedimen t by Microsc opy high power field Bacteri 4+ NL: No Abnorma No Apr 2 a NEGATIV informa l informa 2016 [#/area E tion in tion in 6:37 AM ] in source source Urine data data sedimen t by Microsc opy high power field Casts SEE NL: No No No Apr 2 type BELOW NEGATIV informa informa informa 2016 not E tion in tion in tion in 6:37 AM specifi source source source ed data data data [Presen ce] in Urine by Compute r assiste d method Granula 10 - 20 No No Abnorma No Apr 2 r casts informa informa l informa 2016 tion in tion in tion in 6:37 AM [Presen source source source ce] in data data data Urine sedimen t by Light microsc opy Additio C CATCH No No No No Apr 2 nal informa informa informa informa 2016 comment tion in tion in tion in tion in 6:37 AM s RFC source source source source data data data data CULTURE C&S No No Abnorma No Apr 2 SETUP ORDER informa informa l informa 2016 tion in tion in tion in 6:37 AM source source source data data data Thyrotropin [Units/volume] in Serum or Plasma by Detection limit <= 0.05 mIU/L Observa Value Referen Units Interpr Notes Date tion ce etation Range Thyrotr 3.46 0.36 - uIU/mL No No Apr 2 opin 3.74 informa informa 2016 [Units/ tion in tion in 6:43 AM volume] source source in data data Serum or Plasma by Detecti on limit <= 0.05 mIU/L Basic metabolic 2000 panel in Serum or Plasma Observa Value Referen Units Interpr Notes Date tion ce etation Range Sodium 127 136 - mmol/L Low No Apr 2 [Moles/ 145 informa 2015 volume] tion in 6:43 AM in source Serum data or Plasma Potassi 4.3 3.5 - mmol/L No No Apr 2 um 5.1 informa informa 2016 [Moles/ tion in tion in 6:43 AM volume] source source in data data Serum or Plasma Chlorid 93 98 - mmol/L Low No Apr 2 e 107 informa 2016 [Moles/ tion in 6:43 AM volume] source in data Serum or Plasma Carbon 24 21 - 32 mmol/L No No Apr 2 dioxide informa informa 2016 , total tion in tion in 6:43 AM source source [Moles/ data data volume] in Blood Anion 14 5 - 15 mmol/L No No Apr 2 gap in informa informa 2016 Serum tion in tion in 6:43 AM or source source Plasma data data Glucose 115 70 - mg/dl No No Apr 2 120 informa informa 2016 [Mass/v tion in tion in 6:43 AM olume] source source in data data Serum or Plasma Urea 23 7 - 18 mg/dl High No Apr 2 nitroge informa 2016 n tion in 6:43 AM [Mass/v source olume] data in Serum or Plasma Creatin 1.8 0.6 - mg/dl High No Apr 2 ine 1.3 informa 2015 [Mass/v tion in 6:43 AM olume] source in data Serum or Plasma AGE 60 No yrs No No Apr 2 informa informa informa 2016 tion in tion in tion in 6:43 AM source source source data data data GFR 41 No ml/min No No Apr 2 informa informa informa 2016 tion in tion in tion in 6:43 AM source source source data data data Calcium 7.6 8.5 - mg/dl Low No Apr 2 10.1 informa 2016 [Mass/v tion in 6:43 AM olume] source in data Serum or Plasma Urea 13 6 - 25 ratio No No Jul 2 nitroge informa informa 2016 n/Creat tion in tion in 6:43 AM inine source source [Mass data data ratio] in Serum or Plasma Osmolal 260 272 - No Low GLOMERU Apr 2 ity of 295 informa LAR 2016 Unspeci tion in FILTRAT 6:43 AM fied source ION specime data RATE n INTERPR ETATION Normal Range: >60 mL/min/ 1.73 sq metersI f patient is Tia n, multipl y GFR by 1.120.* GFR only applies to adults over the age 18. CBC W DIFF AUTOMATED Observa Value Referen Units Interpr Notes Date tion ce etation Range Leukocy 10.1 4.5 - K/uL No No Jul 2 lori 11.5 informa informa 2015 [#/volu tion in tion in 6:33 AM me] in source source Blood data data by Automat ed count Erythro 3.19 4.60 - M/uL Low No Jul 2 cytes 6.00 inform2015 [#/volu tion in 6:33 AM me] in source Blood data by Automat ed count Hemoglo 9.9 14.0 - g/dL Low No Jul 2 bin 18.0 inform2015 [Mass/v tion in 6:33 AM olume] source in data Blood Hematoc 29 40 - 54 % Low No Jul 2 rit inform 2016 [Volume tion in 6:33 AM source Fractio data n] of Blood by Automat ed count Erythro 90.3 80.0 - fL No No Jul 2 cyte 100 informa informa 2016 mean tion in tion in 6:33 AM corpusc source source ular data data volume [Entiti c volume] by Automat ed count Erythro 31.0 26.0 - pg No No Jul 2 cyte 32.0 informa informa 2016 mean tion in tion in 6:33 AM corpusc source source ular data data hemoglo bin [Entiti c mass] by Automat ed count Erythro 34.4 32.0 - g/dL No No Jul 2 cyte 36.0 informa informa 2016 mean tion in tion in 6:33 AM corpusc source source ular data data hemoglo bin concent ration [Mass/v olume] in Blood from Fetus by Automat ed count Erythro 13.7 11.5 - % No No Apr 2 cyte 14.5 informa informa 2016 distrib tion in tion in 6:33 AM ution source source width data data [Ratio] by Automat ed count Platele 113 150 - K/uL Low No Apr 2 ts 450 informa 2016 [#/volu tion in 6:33 AM me] in source Blood data by Automat ed count Lymphoc 4.1 18.0 - % Low No Apr 2 ytes/10 42.0 informa 2016 0 tion in 6:33 AM leukocy source lori in data Blood by Automat ed count Monocyt 9.4 2.0 - % No No Apr 2 es/100 11.0 informa informa 2016 leukocy tion in tion in 6:33 AM lori in source source Blood data data by Automat ed count Neutrop 84.7 50.0 - % High No Apr 2 hils.ba 70.0 informa 2016 nd tion in 6:33 AM form/10 source 0 data leukocy lori in Blood by Manual count Eosinop 1.60 1.00 - % No No Apr 2 hils/10 3.00 informa informa 2016 0 tion in tion in 6:33 AM leukocy source source lori in data data Blood by Automat ed count Basophi 0.20 0.00 - % No No Apr 2 ls/100 2.00 informa informa 2016 leukocy tion in tion in 6:33 AM lori in source source Blood data data by Automat ed count Lymphoc 0.41 0.60 - K/uL Low No Apr 2 ytes/10 3.40 informa 2016 0 tion in 6:33 AM leukocy source lori in data Blood by Automat ed count Monocyt 0.95 0.00 - K/uL High No Apr 2 es/100 0.90 informa 2016 leukocy tion in 6:33 AM lori in source Blood data by Automat ed count Neutrop 8.52 2.00 - K/uL High No Apr 2 hils.ba 6.90 informa 2016 nd tion in 6:33 AM form/10 source 0 data leukocy lori in Blood by Manual count Eosinop 0.16 0.00 - K/uL No No Apr 2 hils/10 0.70 informa informa 2016 0 tion in tion in 6:33 AM leukocy source source lori in data data Blood by Automat ed count Basophi 0.02 0.00 - K/uL No No Apr 2 ls/100 0.20 informa informa 2016 leukocy tion in tion in 6:33 AM lori in source source Blood data data by Automat ed count Manual NOT No No No No Apr 2 differe INDICAT informa informa informa informa 2016 ntial ED tion in tion in tion in tion in 6:33 AM perform source source source source ed data data data data [Presen ce] in Blood Bacteria identified in Blood by Culture Observa Value Referen Units Interpr Notes Date tion ce etation Range _CULTURE BLOOD_ STATUS PRELIMI No No No No Apr 5 NARY informa informa informa informa 2016 tion in tion in tion in tion in 4:28 PM source source source source data data data data RESULT NO No No No No Apr 5 GROWTH informa informa informa informa 2016 AT 1 tion in tion in tion in tion in 4:28 PM DAY source source source source data data data data RESULTE LMM No No No No Apr 5 D BY informa informa informa informa 2016 tion in tion in tion in tion in 4:28 PM source source source source data data data data SEND Y No No No No Apr 5 PHARM/I informa informa informa informa 2016 C tion in tion in tion in tion in 4:28 PM source source source source data data data data SEND TO N No No No Apr 5 ER informa informa informa 2016 tion in tion in tion in 4:28 PM source source source data data data STATUS FINAL No No No No Apr 5 informa informa informa informa 2016 tion in tion in tion in tion in 4:28 PM source source source source data data data data RESULT NO No No No No Apr 5 GROWTH informa informa informa informa 2016 5 DAYS tion in tion in tion in tion in 4:28 PM source source source source data data data data RESULTE DB No No No No Apr 5 D BY informa informa informa informa 2016 tion in tion in tion in tion in 4:28 PM source source source source data data data data SEND Y No No No No Apr 5 PHARM/I informa informa informa informa 2016 C tion in tion in tion in tion in 4:28 PM source source source source data data data data SEND TO N No No No Apr 5 ER informa informa informa 6.1628. 2016 tion in tion in tion in DRB.COM 4:28 PM source source source PLETE data data data Bacteria identified in Sputum by Culture Observa Value Referen Units Interpr Notes Date tion ce etation Range _CULTUR ORY No No No Apr 2 E informa informa informa 2016 RESPIRA tion in tion in tion in 9:47 AM T source source source data data data Microbi SPUTUM No No No Jul 2 ology informa informa informa 2016 studies tion in tion in tion in 9:47 AM (set) source source source data data data STATUS PRELIMI No No No No Apr 2 NARY informa informa informa informa 2016 tion in tion in tion in tion in 9:47 AM source source source source data data data data RESULT: HEAVY No No No No Apr 2 GROWTH informa informa informa informa 2016 GRAM tion in tion in tion in tion in 9:47 AM NEGATIV source source source source E RODS data data data data RESULT: MODERAT No No No No Apr 2 E informa informa informa informa 2016 GROWTH tion in tion in tion in tion in 9:47 AM STAPH source source source source SPECIES data data data data RESULT: SCANT No No No No Apr 2 GROWTH informa informa informa informa 2016 MIX tion in tion in tion in tion in 9:47 AM RESPIRA source source source source TORY data data data data AKILA RESULTE CRW No No No No Apr 2 D BY informa informa informa informa 2016 tion in tion in tion in tion in 9:47 AM source source source source data data data data SEND Y No No No No Apr 2 PHARM/I informa informa informa informa 2016 C tion in tion in tion in tion in 9:47 AM source source source source data data data data SEND TO N No No No Apr 2 ER informa informa informa 2016 tion in tion in tion in 9:47 AM source source source data data data STATUS FINAL No No No No Apr 2 informa informa informa informa 2016 tion in tion in tion in tion in 9:47 AM source source source source data data data data RESULT: HEAVY No No No No Apr 2 GROWTH informa informa informa informa 2016 GRAM tion in tion in tion in tion in 9:47 AM NEGATIV source source source source E RODS data data data data RESULT: MODERAT No No No No Apr 2 E informa informa informa informa 2016 GROWTH tion in tion in tion in tion in 9:47 AM STAPH source source source source AUREUS data data data data (MRSA) RESULT: SCANT No No No No Apr 2 GROWTH informa informa informa informa 2016 USUAL tion in tion in tion in tion in 9:47 AM RESPIRA source source source source TORY data data data data AKILA RESULTE CRW No No No No Apr 2 D BY informa informa informa informa 2016 tion in tion in tion in tion in 9:47 AM source source source source data data data data SEND Y No No No No Apr 2 PHARM/I informa informa informa informa 2016 C tion in tion in tion in tion in 9:47 AM source source source source data data data data SEND TO N No No No M I C R Apr 2 ER informa informa informa O B I 2016 tion in tion in tion in O L O G 9:47 AM source source source Y R data data data E P O R T FINAL ----- ------- ------- ------- ------- Antimic robial Suscept ibility and Organis m Identif ication Report ------- ------- ------- ------- ------S doug Number : [id number] Request ed : 6Specim en Source : Respira tory Collect ed : 6 15:15Wa rd of Isolati on : ER Receive d : 6 16:00Angela Jean-Baptiste an :------ ------- ------- ------- ------- ------- ------- ------- ------- ------- ------- ------- ------- ------- ------- ------- ------- ------- ------- Patient /Specim en Tests and Comment s------ ------- ------- ------- ------- ------- ------- ------- ------- ------- ------- ------- ------- ------- ------- ------- ------- ------- ------- Organis ms Identif ied---- ------ ------- ------- ------- ------- ------- ------- --- ------- -* 01 Klebsie lla pneumon iae 6------ ---- ------- ------- ------- ------- ------- ------- --- ------- -* 02 Methici llin Resista nt Staphyl ococcus aureus 6------ ------- ------- ------- ------- ------- ------- ------- ------- ------- ------- ------- ------- ------- ------- ------- ------- ------- ------- Tech : Source : Kody lauren ID # : [id number] FINAL Repor t Date : / / : Collect ed : 6 15:15 Continu ed on Next Ira I C R O B I O L O G Y R E P O R T FINAL ----- ------- ------- ------- ------- Antimic robial Suscept ibility and Organis m Identif ication Report ------- ------- ------- ------- ------- ------- ------- ------- ------- ------- ------- ------- ------- ------- ------- ------- ------- ------- ------- ------- ------- ------- ------- -----Is olate 01 Klebs[place] lla pneumon iaeIsol ate 02 Methici llin Resista nt Staphyl ococcus aureus- ------- ------- ------- ------- ------- ------- ------- ------- ------- ------- ------- ------- ------- ------- ------- ------- ------- ------- -----Evin damoniell a pneumon iae Methici llin Resista nt Staphyl oDRUG KAMILA Interp KAMILA Interp- ------- ------- - --- ----- --- -----Am ikacin <=16 S ---Aztr eonam <=4 S ---Ceft riaxone <=1 S ---Ceft azidime <=1 S ---Cefo taxime <=2 S ---Cefo xitin <=8 S ---Cefa zolin <=8 S 8 RCiprof loxacin <=1 S <=1 SCefepi me <=4 S ---Cefu roxime <=4 S ---Erta penem <=1 S ---Gent amicin <=4 S <=4 SLevofl oxacin <=2 S <=1 SMerope nem <=1 S ---Pip/ Tazo <=16 S ---Trim eth/Sul fa <=2/38 S <=0.5/9 .5 STobram ycin <=4 S ---Ampi cillin >8 RAmox/K Clav >4/2 RClinda mycin <=0.5 SCefoxi tin Screen >4 POSEryt hromyci n >4 RInduci ble Clindam ycin <=4/0.5 NEGLine zolid 4 SOxacil adrien >2 RPenici llin >8 RRifamp in <=1 STetrac ycline <=4 SVancom ycin 2 SB-Lact amase Positiv e------ ------- ------- ------- ------- ------- ------- ------- ------- ------- ------- ------- ------- ------- ------- ------- ------- ------- ------- S = Suscept ible CC = Cost Code N/R = Not Reporte d Sergey = Beta Lactama se Positiv eI = Interme diate KAMILA = mcg/ml (mg/L) --- = Not Tested TFG = Thymidi ne-depe ndent StrainR = Resista nt Blank= Data not availab le, or drug not advisab le or testedF or Blood and CSF Isolate s, a Beta-La ctamase test is recomme nded for Enteroc ocus species .IB appears in place of S, I (S), +, ++, or +++ with species known to possess inducib le B-lacta mases; potenti ally they may becomer esistan t to all B-lacta m drugs. Monitor ing of patient s during/ after therapy is recomme nded. Avoid other/c ombined B-lacta m drugs.( a) Use maximum doses of drug with an aminogl ycoside for P. aerugin artur in patient s with granulo cytopen ia or serious infecti ons.(b) Breakpo ints based on nitin ral dose. For cefurox john Axetil (PO) use <8=S, 8-16=I, >16=R.( c) For strepto cocci (includ ing enteroc occi), Microco ccus species , and Listeri a species , refer to the Ampicil adrien interpr etation . IfAmpic illin results are unavail able, refer to Vanessa jurado. If Pen result is resista nt, test Ampicil adrien using an alterna te method. ------- ------- ------- ------- ------- ------- ------- ------- ------- ------- ------- ------- ------- ------- ------- ------- ------- ------- ------I nterpre tations based on NCCLS M7-A3. Pip/Alberto o for strepto cocci and enteroc occi based on roya anderson's breakpo ints.-- ------- ------- ------- ------- ------- ------- ------- ------- ------- ------- ------- ------- ------- ------- ------- ------- ------- ------- ----Sarah h : Source : Kody lauren ID # : [id number] FINAL Repor t Date : / / : Collect ed : 6 15:1504 . 47.CW .52 .CW .COMPLE TE Microscopic observation [Identifier] in Sputum by Gram stain Observa Value Referen Units Interpr Notes Date tion ce etation Range _GRAM STAIN/SPUTUM_ RESULTS: _GREATAER_THAN_25_WBC/LPF;_LESS_THAN_10___ 07/27/15.[facility]. _EPITHELIAL_CELLS/LPF;_3+_GRAM_NEGATIVE___ 07/27/15.[facility]. _RODS;_1+_GRAM_POSITIVE_COCCI 07/27/15.[facility]. CULTURE CRITERIA FOR SPUTUM: ACCEPTABLE = GREATER THAN 25 WBC/LPF LESS THAN 10 EPITHELIAL CELLS/LPF Additio YES No No No No Jul 26 nal informa informa informa informa 2015 comment tion in tion in tion in tion in 4:[address] [facility] source source source source data data data data Additio NO No No No No Jul 26 nal informa informa informa informa 2016 comment tion in tion in tion in tion in 4:15 PM s RFC source source source source data data data data Bacteria identified in Blood by Culture Observa Value Referen Units Interpr Notes Date tion ce etation Range _CULTURE BLOOD_ STATUS PRELIMI No No No No Apr 5 NARY informa informa informa informa 2016 tion in tion in tion in tion in 4:28 PM source source source source data data data data RESULT NO No No No No Apr 5 GROWTH informa informa informa informa 2016 AT 1 tion in tion in tion in tion in 4:28 PM DAY source source source source data data data data RESULTE LMM No No No No Apr 5 D BY informa informa informa informa 2016 tion in tion in tion in tion in 4:28 PM source source source source data data data data SEND Y No No No No Apr 5 PHARM/I informa informa informa informa 2016 C tion in tion in tion in tion in 4:28 PM source source source source data data data data SEND TO N No No No Apr 5 ER informa informa informa 2016 tion in tion in tion in 4:28 PM source source source data data data STATUS FINAL No No No No Apr 5 informa informa informa informa 2016 tion in tion in tion in tion in 4:28 PM source source source source data data data data RESULT NO No No No No Apr 5 GROWTH informa informa informa informa 2016 5 DAYS tion in tion in tion in tion in 4:28 PM source source source source data data data data RESULTE DB No No No No Apr 5 D BY informa informa informa informa 2016 tion in tion in tion in tion in 4:28 PM source source source source data data data data SEND Y No No No No Apr 5 PHARM/I informa informa informa informa 2016 C tion in tion in tion in tion in 4:28 PM source source source source data data data data SEND TO N No No No Apr 5 ER informa informa informa 6.1628. 2016 tion in tion in tion in DRB.COM 4:28 PM source source source PLETE data data data Comprehensive metabolic 1998 panel in Serum or Plasma Observa Value Referen Units Interpr Notes Date tion ce etation Range Sodium 129 136 - mmol/L Low No Jul 26 [Moles/ 145 informa 2016 volume] tion in 3:07 PM in source Serum data or Plasma Potassi 4.1 3.5 - mmol/L No Jul 26 um 5.1 informa informa 2016 [Moles/ tion in tion in 3:07 PM volume] source source in data data Serum or Plasma Chlorid 92 98 - mmol/L Low No Jul 26 e 107 informa 2016 [Moles/ tion in 3:07 PM volume] source in data Serum or Plasma Carbon 31 21 - 32 mmol/L No Jul 26 dioxide informa informa 2016 , total tion in tion in 3:07 PM source source [Moles/ data data volume] in Blood Anion 10 5 - 15 mmol/L No Jul 26 gap in informa informa 2016 Serum tion in tion in 3:07 PM or source source Plasma data data Glucose 124 70 - mg/dl High No Jul 26 120 informa 2016 [Mass/v tion in 3:07 PM olume] source in data Serum or Plasma Urea 18 7 - 18 mg/dl No Jul 26 nitroge informa informa 2016 n tion in tion in 3:07 PM [Mass/v source source olume] data data in Serum or Plasma Creatin 1.7 0.6 - mg/dl High No Jul 26 ine 1.3 informa 2016 [Mass/v tion in 3:07 PM olume] source in data Serum or Plasma AGE 60 No yrs No Jul 26 informa informa informa 2016 tion in tion in tion in 3:07 PM source source source data data data GFR 44 No ml/min No Jul 26 informa informa informa 2016 tion in tion in tion in 3:07 PM source source source data data data Urea 11 6 - 25 ratio No Jul 26 nitroge informa informa 2016 n/Creat tion in tion in 3:07 PM inine source source [Mass data data ratio] in Serum or Plasma Osmolal 262 272 - No Low No Jul 26 ity of 295 informa informa 2016 Unspeci tion in tion in 3:07 PM fied source source specime data data n Calcium 8.0 8.5 - mg/dl Low No Jul 26 10.1 informa 2015 [Mass/v tion in 3:07 PM olume] source in data Serum or Plasma Bilirub 0.7 0.2 - mg/dl No No Jul 26 in.tota 1.0 informa informa 2015 l tion in tion in 3:07 PM [Mass/v source source olume] data data in Serum or Plasma Asparta 3 15 - 37 IU/L Low No Jul 26 te informa 2015 aminotr tion in 3:07 PM ansfera source se data [Enzyma tic activit y/volum e] in Serum or Plasma Alanine 10 12 - 78 IU/L Low No Jul 26 informa 2015 aminotr tion in 3:07 PM ansfera source se data [Enzyma tic activit y/volum e] in Serum or Plasma Alkalin 62 54 - IU/L No No Jul 26 e 369 informa informa 2015 phospha tion in tion in 3:07 PM tase source source [Enzyma data data tic activit y/volum e] in Serum or Plasma Protein 7.2 6.4 - g/dl No No Jul 26 8.2 informa inform2015 [Mass/v tion in tion in 3:07 PM olume] source source in data data Serum or Plasma Albumin 3.3 3.4 - g/dl Low No Jul 26 5.0 inform2015 [Mass/v tion in 3:07 PM olume] source in data Serum or Plasma Albumin 3.9 1.3 - g/dl High No Jul 26 /Globul 3.5 informa 2016 in tion in 3:07 PM [Mass source ratio] data in Serum or Plasma Albumin 0.8 1.0 - ratio Low GLOMERU Jul 26 /Globul 3.9 LAR 2016 in FILTRAT 3:07 PM [Mass ION ratio] RATE in INTERPR Serum ETATION or Normal Plasma Range: >60 mL/min/ 1.73 sq metersI f patient is Tia n, multipl y GFR by 1.120.* GFR only applies to adults over the age 18. CBC W DIFF AUTOMATED Observa Value Referen Units Interpr Notes Date tion ce etation Range Leukocy 15.7 4.5 - K/uL High No Jul 26 lori 11.5 informa 2015 [#/volu tion in 3:05 PM me] in source Blood data by Automat ed count Erythro 3.96 4.60 - M/uL Low No Jul 26 cytes 6.00 informa 2016 [#/volu tion in 3:05 PM me] in source Blood data by Automat ed count Hemoglo 12.5 14.0 - g/dL Low No Jul 26 bin 18.0 informa 2016 [Mass/v tion in 3:05 PM olume] source in data Blood Hematoc 36 40 - 54 % Low No Jul 26 rit informa 2016 [Volume tion in 3:05 PM source Fractio data n] of Blood by Automat ed count Erythro 90.4 80.0 - fL No Jul 26 cyte 100 informa informa 2016 mean tion in tion in 3:05 PM corpusc source source ular data data volume [Entiti c volume] by Automat ed count Erythro 31.6 26.0 - pg No Jul 26 cyte 32.0 informa informa 2016 mean tion in tion in 3:05 PM corpusc source source ular data data hemoglo bin [Entiti c mass] by Automat ed count Erythro 34.9 32.0 - g/dL No Jul 26 cyte 36.0 informa informa 2016 mean tion in tion in 3:05 PM corpusc source source ular data data hemoglo bin concent ration [Mass/v olume] in Blood from Fetus by Automat ed count Erythro 13.8 11.5 - % No Jul 26 cyte 14.5 informa informa 2016 distrib tion in tion in 3:05 PM ution source source width data data [Ratio] by Automat ed count Platele 138 150 - K/uL Low No Jul 26 ts 450 informa 2016 [#/volu tion in 3:05 PM me] in source Blood data by Automat ed count Lymphoc 5.4 18.0 - % Low No Jul 26 ytes/10 42.0 informa 2016 0 tion in 3:05 PM leukocy source lori in data Blood by Automat ed count Monocyt 9.2 2.0 - % No Jul 26 es/100 11.0 informa informa 2016 leukocy tion in tion in 3:05 PM lori in source source Blood data data by Automat ed count Neutrop 84.9 50.0 - % High No Jul 26 hils.ba 70.0 informa 2016 nd tion in 3:05 PM form/10 source 0 data leukocy lori in Blood by Manual count Eosinop 0.20 1.00 - % Low No Jun 31 hils/10 3.00 informa 2016 0 tion in 3:05 PM leukocy source lori in data Blood by Automat ed count Basophi 0.30 0.00 - % No No Jun 31 ls/100 2.00 informa informa 2016 leukocy tion in tion in 3:05 PM lori in source source Blood data data by Automat ed count Lymphoc 0.85 0.60 - K/uL No No Jul 26 ytes/10 3.40 informa informa 2016 0 tion in tion in 3:05 PM leukocy source source lori in data data Blood by Automat ed count Monocyt 1.44 0.00 - K/uL High No Jul 26 es/100 0.90 informa 2016 leukocy tion in 3:05 PM lori in source Blood data by Automat ed count Neutrop 13.30 2.00 - K/uL High No Jul 26 hils.ba 6.90 informa 2016 nd tion in 3:05 PM form/10 source 0 data leukocy lori in Blood by Manual count Eosinop 0.03 0.00 - K/uL No No Jul 26 hils/10 0.70 informa informa 2016 0 tion in tion in 3:05 PM leukocy source source lori in data data Blood by Automat ed count Basophi 0.05 0.00 - K/uL No No Jul 26 ls/100 0.20 informa informa 2016 leukocy tion in tion in 3:05 PM lori in source source Blood data data by Automat ed count Manual SEE No No No No Jul 26 differe BELOW informa informa informa informa 2016 ntial tion in tion in tion in tion in 3:05 PM perform source source source source ed data data data data [Presen ce] in Blood Neutrop 79 40 - 75 % High No Jul 26 hils.se informa 2016 gmented tion in 3:05 PM source [#/volu data me] in Blood by Manual count BANDS 10 0 - 5 % High No Jul 26 informa 2016 tion in 3:05 PM source data Lymphoc 3 16 - 46 % Low No Jul 26 ytes/10 informa 2016 0 tion in 3:05 PM leukocy source lori in data Blood Monocyt 8 0 - 12 % No No Jul 26 es informa informa 2016 [#/volu tion in tion in 3:05 PM me] in source source Blood data data Platele ADEQUAT No No No No Jul 26 ts E informa informa informa informa 2016 [Presen tion in tion in tion in tion in 3:05 PM ce] in source source source source Blood data data data data by Light microsc opy Erythro NORMAL No No No No Jul 26 cyte informa informa informa informa 2016 morphol tion in tion in tion in tion in 3:05 PM ogy source source source source finding data data data data [Identi fier] in Blood INFLUENZA A and B RAPID Observa Value Referen Units Interpr Notes Date tion ce etation Range _INFLUENZA ANTIGEN A + B_ Influen NEGATIV No [NL:_NE No No Jul 26 za E informa GAT informa informa 2016 virus A tion in tion in tion in 2:52 PM Ag source source source [Presen data data data ce] in Unspeci fied specime n Influen NEGATIV No [NL:_NE No No Jul 26 za E informa GAT informa informa 2016 virus B tion in tion in tion in 2:52 PM Ag source source source [Presen data data data ce] in Unspeci fied specime n XR CHEST AP LA Observa Value Referen Units Interpr Notes Date tion ce etation Range XR No No No No Jul 26 CHEST informa informa informa informa 2016 AP LA tion in tion in tion in tion in 2:25 PM source source source source data data data data [facility]\\.br\\ [address]\\.br \\ [facility] [place] [address]\\. br\\\\.br \\ RADIOLO GY REPORT\\ .br\\ Name: AKANKSHA PATTERSON\\. br\\ Patient #: [id number] Stay Type: E/R\\.br \\ Age: 60 Room: ERTTT\\. br\\ : 953 Sex: M\\.br\\ Orderin g Phys: EVERARDO NGOZI MR#: [id number]\\. br\\ Family Phys: FRANCISCO HAY Pt Phone: [phone] /[phone]\\. br\\ Admitti ng Phys: PRINCE MELVIN\\.br \\ Unsig venus Transcr iptions represe nt a prelimi nary report and do\\.br\\ not reflect a medical or legal documen t.\\.b r\\\\.br\\ \\.br\\ [place] [id number] COMPLET E:07/26 15:01 CGS 70273\\. br\\ (REASON FOR CHEST: COUGH\\. 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 Compare d to prior study 5 and 03/06/20 15.\\.br \\\\.br\\ FINDING S: PA and lateral project ions of the chest show the lungs are hyperex panded. Cardiac \\.br\\ monitor ing device is noted within the anterio r chest wall. There is a coarse ill defined infiltr ate in\\.br\\ the right upper lobe. Heart size is within normal limits. No gross adenopa thy.\\.b r\\\\.br\\ IMPRESS ION:\\.b r\\ Suspect coarse pneumon ic infiltr ate superim posed upon advance d chronic airways disease .\\.br\\ Recomme nd plain radiogr aphic follow up to resolut ion.\\.b r\\\\.br\\ Electro nically reviewe d and signed by:\\.br \\ JOAQUÍN MILLER MD\\.br\\ RADIOLO GIST/ 17:43\\. br\\\\.br \\ Dictati on Date/Ti me: 07/27/1515:10 Dictate d By: JOAQUÍN MILLER MD RADIOLO GIST\\.b r\\ Transcr . Date/Ti me: 07/27/15 15:21 Transcr . Init.: rj\\.br \\\\.br\\ Copy for: PRINCE CECI Abrams\\.br\\\\ .br\\ Basic metabolic 2000 panel in Serum or Plasma Observa Value Referen Units Interpr Notes Date tion ce etation Range Sodium 133 136 - mmol/L Low No Nov 11 [Moles/ 145 informa 2015 volume] tion in 6:43 AM in source Serum data or Plasma Potassi 4.9 3.5 - mmol/L No Mar 08 um 5.1 informa informa 2014 [Moles/ tion in tion in 6:43 AM volume] source source in data data Serum or Plasma Chlorid 97 98 - mmol/L Low No Mar 08 e 107 informa 2014 [Moles/ tion in 6:43 AM volume] source in data Serum or Plasma Carbon 31 21 - 32 mmol/L No Mar 08 dioxide informa informa 2015 , total tion in tion in 6:43 AM source source [Moles/ data data volume] in Blood Anion 10 5 - 15 mmol/L No Mar 08 gap in informa informa 2014 Serum tion in tion in 6:43 AM or source source Plasma data data Glucose 184 70 - mg/dl High No Mar 08 120 informa 2014 [Mass/v tion in 6:43 AM olume] source in data Serum or Plasma Urea 24 7 - 18 mg/dl High No Mar 08 nitroge informa 2015 n tion in 6:43 AM [Mass/v source olume] data in Serum or Plasma Creatin 1.4 0.6 - mg/dl High No Mar 08 ine 1.3 informa 2014 [Mass/v tion in 6:43 AM olume] source in data Serum or Plasma AGE 60 No yrs No Mar 08 informa informa informa 2015 tion in tion in tion in 6:43 AM source source source data data data GFR 55 No ml/min No Mar 08 informa informa informa 2015 tion in tion in tion in 6:43 AM source source source data data data Calcium 9.0 8.5 - mg/dl No Mar 08 10.1 informa informa 2015 [Mass/v tion in tion in 6:43 AM olume] source source in data data Serum or Plasma Urea 17 6 - 25 ratio No Mar 08 nitroge informa informa 2015 n/Creat tion in tion in 6:43 AM inine source source [Mass data data ratio] in Serum or Plasma Osmolal 275 272 - No No /BLDo/G Mar 08 ity of 295 informa informa LOMERGAYLE 2015 Unspeci tion in tion in AR 6:43 AM fied source source FILTRAT specime data data ION n RATE INTERPR ETATION /BLDx/N ormal Range: >60 mL/min/ 1.73 sq metersI f patient is Tia n, multipl y GFR by 1.120.* GFR only applies to adults over the age 18. CBC W DIFF AUTOMATED Observa Value Referen Units Interpr Notes Date tion ce etation Range Leukocy 14.3 4.5 - K/uL High Mar 08 lori 11.5 informa 2014 [#/volu tion in 6:47 AM me] in source Blood data by Automat ed count Erythro 3.56 4.60 - M/uL Low Mar 08 cytes 6.00 informa 2014 [#/volu tion in 6:47 AM me] in source Blood data by Automat ed count Hemoglo 11.1 14.0 - g/dL Low Mar 08 bin 18.0 informa 2014 [Mass/v tion in 6:47 AM olume] source in data Blood Hematoc 33 40 - 54 % Low No Mar 08 rit informa 2014 [Volume tion in 6:47 AM source Fractio data n] of Blood by Automat ed count Erythro 91.3 80.0 - fL No Mar 08 cyte 100 informa informa 2015 mean tion in tion in 6:47 AM corpusc source source ular data data volume [Entiti c volume] by Automat ed count Erythro 31.2 26.0 - pg No Mar 08 cyte 32.0 informa informa 2015 mean tion in tion in 6:47 AM corpusc source source ular data data hemoglo bin [Entiti c mass] by Automat ed count Erythro 34.2 32.0 - g/dL No Mar 08 cyte 36.0 informa informa 2015 mean tion in tion in 6:47 AM corpusc source source ular data data hemoglo bin concent ration [Mass/v olume] in Blood from Fetus by Automat ed count Erythro 13.8 11.5 - % No Mar 08 cyte 14.5 informa informa 2015 distrib tion in tion in 6:47 AM ution source source width data data [Ratio] by Automat ed count Platele 164 150 - K/uL No No Nov 11 ts 450 informa informa 2015 [#/volu tion in tion in 6:47 AM me] in source source Blood data data by Automat ed count Lymphoc 4.8 18.0 - % Low No Mar 08 ytes/10 42.0 informa 2015 0 tion in 6:47 AM leukocy source lori in data Blood by Automat ed count Monocyt 4.7 2.0 - % No No Mar 08 es/100 11.0 informa informa 2015 leukocy tion in tion in 6:47 AM lori in source source Blood data data by Automat ed count Neutrop 90.5 50.0 - % High No Mar 08 hils.ba 70.0 informa 2015 nd tion in 6:47 AM form/10 source 0 data leukocy lori in Blood by Manual count Eosinop 0.00 1.00 - % Low No Mar 08 hils/10 3.00 informa 2015 0 tion in 6:47 AM leukocy source lori in data Blood by Automat ed count Basophi 0.00 0.00 - % No No Mar 08 ls/100 2.00 informa informa 2015 leukocy tion in tion in 6:47 AM lori in source source Blood data data by Automat ed count Lymphoc 0.68 0.60 - K/uL No No Mar 08 ytes/10 3.40 informa informa 2015 0 tion in tion in 6:47 AM leukocy source source lori in data data Blood by Automat ed count Monocyt 0.67 0.00 - K/uL No No Mar 08 es/100 0.90 informa informa 2015 leukocy tion in tion in 6:47 AM lori in source source Blood data data by Automat ed count Neutrop 12.95 2.00 - K/uL High No Mar 08 hils.ba 6.90 informa 2015 nd tion in 6:47 AM form/10 source 0 data leukocy lori in Blood by Manual count Eosinop 0.00 0.00 - K/uL No No Mar 08 hils/10 0.70 informa informa 2015 0 tion in tion in 6:47 AM leukocy source source lori in data data Blood by Automat ed count Basophi 0.00 0.00 - K/uL No No Mar 08 ls/100 0.20 informa informa 2015 leukocy tion in tion in 6:47 AM lori in source source Blood data data by Automat ed count Manual SLIDE No No No No Mar 08 differe SCAN-OK informa informa informa informa 2014 ntial tion in tion in tion in tion in 6:47 AM perform source source source source ed data data data data [Presen ce] in Blood Thyrotropin [Units/volume] in Serum or Plasma by Detection limit <= 0.05 mIU/L Observa Value Referen Units Interpr Notes Date tion ce etation Range Thyrotr 0.86 0.36 - uIU/mL No No Mar 08 opin 3.74 informa informa 2014 [Units/ tion in tion in 6:43 AM volume] source source in data data Serum or Plasma by Detecti on limit <= 0.05 mIU/L Urinalysis dipstick W Reflex Microscopic panel in Urine Observa Value Referen Units Interpr Notes Date tion ce etation Range Color YELLOW NL: No No No Mar 07 of Negativ informa informa informa 2015 Urine e tion in tion in tion in 6:15 AM source source source data data data Appeara CLEAR NL: No No No Mar 07 nce of Negativ informa informa informa 2015 Urine e tion in tion in tion in 6:15 AM source source source data data data Glucose NEG NL: No No No Mar 07 Negativ informa informa informa 2014 [Mass/v e tion in tion in tion in 6:15 AM olume] source source source in data data data Urine by Test strip Bilirub NEG NL: No No No Mar 07 in Negativ informa informa informa 2015 [Presen e tion in tion in tion in 6:15 AM ce] in source source source Urine data data data by Test strip Ketones NEG NL: No No No Mar 07 Negativ informa informa informa 2015 [Presen e tion in tion in tion in 6:15 AM ce] in source source source Serum data data data or Plasma Specifi 1.020 NL: No No No Mar 07 c 1.00 >= informa informa informa 2015 gravity 1.030 tion in tion in tion in 6:15 AM of source source source Urine data data data Hemoglo NEG NL: No No No Mar 07 bin Negativ informa informa informa 2014 [Presen e tion in tion in tion in 6:15 AM ce] in source source source Urine data data data by Test strip pH of 5.5 NL: No No No Mar 07 Urine informa informa informa 2015 by Test tion in tion in tion in 6:15 AM strip source source source data data data Protein NEG NL: No No No Mar 07 Negativ informa informa informa 2014 [Presen e tion in tion in tion in 6:15 AM ce] in source source source Urine data data data by Test strip Urobili 0.2 NL: 0.2 No No No Mar 07 nogen - 1.0 informa informa informa 2014 [Mass/v tion in tion in tion in 6:15 AM olume] source source source in data data data Urine by Test strip Nitrite NEG NL: No No No Mar 07 Negativ informa informa informa 2014 [Presen e tion in tion in tion in 6:15 AM ce] in source source source Urine data data data by Test strip Leukocy NEG NL: No No { Mar 07 lori Negativ informa informa MICROSC 2014 [#/volu e tion in tion in OPIC 6:15 AM me] in source source Blood data data See by Below Automat ed count Additio VOIDED No No No No Feb 10 nal informa informa informa informa 2014 comment tion in tion in tion in tion in 6:15 AM s RFC source source source source data data data data CULTURE NOT No No No No Mar 07 SETUP INDIC informa informa informa informa 2014 tion in tion in tion in tion in 6:15 AM source source source source data data data data Bacteria identified in Blood by Culture Observa Value Referen Units Interpr Notes Date tion ce etation Range No No No No _CULTUR Mar 11 informa informa informa informa E 2015 tion in tion in tion in tion in BLOOD_ 4:36 PM source source source source data data data data No No No No No Mar 11 informa informa informa informa informa 2015 tion in tion in tion in tion in tion in 4:36 PM source source source source source data data data data data STATUS PRELIMI No No No No Feb 14 NARY informa informa informa informa 2015 tion in tion in tion in tion in 4:36 PM source source source source data data data data RESULT NO No No No No Feb 14 GROWTH informa informa informa informa 2015 AT 1 tion in tion in tion in tion in 4:36 PM DAY source source source source data data data data RESULTE MDA No No No No Feb 14 D BY informa informa informa informa 2015 tion in tion in tion in tion in 4:36 PM source source source source data data data data SEND Y No No No No Mar 11 PHARM/I informa informa informa informa 2015 C tion in tion in tion in tion in 4:36 PM source source source source data data data data SEND TO N No No No No Mar 11 ER informa informa informa informa 2015 tion in tion in tion in tion in 4:36 PM source source source source data data data data No No No No No Mar 11 informa informa informa informa informa 2015 tion in tion in tion in tion in tion in 4:36 PM source source source source source data data data data data No No No No No Mar 11 informa informa informa informa informa 2015 tion in tion in tion in tion in tion in 4:36 PM source source source source source data data data data data STATUS FINAL No No No No Mar 11 informa informa informa informa 2015 tion in tion in tion in tion in 4:36 PM source source source source data data data data RESULT NO No No No No Mar 11 GROWTH informa informa informa informa 2015 5 DAYS tion in tion in tion in tion in 4:36 PM source source source source data data data data RESULTE CRW No No No No Feb 14 D BY informa informa informa informa 2015 tion in tion in tion in tion in 4:36 PM source source source source data data data data SEND Y No No No No Mar 11 PHARM/I informa informa informa informa 2015 C tion in tion in tion in tion in 4:36 PM source source source source data data data data SEND TO N No No No No Mar 11 ER informa informa informa informa 2015 tion in tion in tion in tion in 4:36 PM source source source source data data data data No No No No No Mar 11 informa informa informa informa informa 2015 tion in tion in tion in tion in tion in 4:36 PM source source source source source data data data data data No No No No No Mar 11 informa informa informa informa informa 2015 tion in tion in tion in tion in tion in 4:36 PM source source source source source data data data data data STATUS No No No No No Mar 11 informa informa informa informa informa 2015 tion in tion in tion in tion in tion in 4:36 PM source source source source source data data data data data RESULTE No No No No No Mar 11 D BY informa informa informa informa informa 2015 tion in tion in tion in tion in tion in 4:36 PM source source source source source data data data data data SEND No No No No No Mar 11 PHARM/I informa informa informa informa informa 2015 C tion in tion in tion in tion in tion in 4:36 PM source source source source source data data data data data SEND TO No No No No Mar 11 ER informa informa informa informa 5.1636. 2015 tion in tion in tion in tion in CW 4:36 PM source source source source .COMPLE data data data data TE Bacteria identified in Blood by Culture Observa Value Referen Units Interpr Notes Date tion ce etation Range No No No No _CULTUR Mar 11 informa informa informa informa E 2015 tion in tion in tion in tion in BLOOD_ 4:37 PM source source source source data data data data No No No No No Mar 11 informa informa informa informa informa 2015 tion in tion in tion in tion in tion in 4:37 PM source source source source source data data data data data STATUS PRELIMI No No No No Mar 11 NARY informa informa informa informa 2015 tion in tion in tion in tion in 4:37 PM source source source source data data data data RESULT NO No No No No Nov 14 GROWTH informa informa informa informa 2015 AT 1 tion in tion in tion in tion in 4:37 PM DAY source source source source data data data data RESULTE MDA No No No No Feb 14 D BY informa informa informa informa 2015 tion in tion in tion in tion in 4:37 PM source source source source data data data data SEND Y No No No No Feb 14 PHARM/I informa informa informa informa 2015 C tion in tion in tion in tion in 4:37 PM source source source source data data data data SEND TO N No No No No Feb 14 ER informa informa informa informa 2015 tion in tion in tion in tion in 4:37 PM source source source source data data data data No No No No No Mar 11 informa informa informa informa informa 2015 tion in tion in tion in tion in tion in 4:37 PM source source source source source data data data data data No No No No No Mar 11 informa informa informa informa informa 2015 tion in tion in tion in tion in tion in 4:37 PM source source source source source data data data data data STATUS FINAL No No No No Mar 11 informa informa informa informa 2015 tion in tion in tion in tion in 4:37 PM source source source source data data data data RESULT NO No No No No Mar 11 GROWTH informa informa informa informa 2015 5 DAYS tion in tion in tion in tion in 4:37 PM source source source source data data data data RESULTE CRW No No No No Feb 14 D BY informa informa informa informa 2015 tion in tion in tion in tion in 4:37 PM source source source source data data data data SEND Y No No No No Mar 11 PHARM/I informa informa informa informa 2015 C tion in tion in tion in tion in 4:37 PM source source source source data data data data SEND TO N No No No No Feb 14 ER informa informa informa informa 2015 tion in tion in tion in tion in 4:37 PM source source source source data data data data No No No No No Mar 11 informa informa informa informa informa 2015 tion in tion in tion in tion in tion in 4:37 PM source source source source source data data data data data No No No No No Mar 11 informa informa informa informa informa 2015 tion in tion in tion in tion in tion in 4:37 PM source source source source source data data data data data STATUS No No No No No Mar 11 informa informa informa informa informa 2015 tion in tion in tion in tion in tion in 4:37 PM source source source source source data data data data data RESULTE No No No No No Mar 11 D BY informa informa informa informa informa 2014 tion in tion in tion in tion in tion in 4:37 PM source source source source source data data data data data SEND No No No No No Mar 11 PHARM/I informa informa informa informa informa 2014 C tion in tion in tion in tion in tion in 4:37 PM source source source source source data data data data data SEND TO No No No No Mar 11 ER informa informa informa informa 5.1637. 2015 tion in tion in tion in tion in CW 4:37 PM source source source source .COMPLE data data data data TE Comprehensive metabolic 1998 panel in Serum or Plasma Observa Value Referen Units Interpr Notes Date tion ce etation Range Sodium 135 136 - mmol/L Low No Mar 06 [Moles/ 145 informa 2014 volume] tion in 3:34 PM in source Serum data or Plasma Potassi 4.3 3.5 - mmol/L No No Mar 06 um 5.1 informa informa 2014 [Moles/ tion in tion in 3:34 PM volume] source source in data data Serum or Plasma Chlorid 97 98 - mmol/L Low No Mar 06 e 107 informa 2014 [Moles/ tion in 3:34 PM volume] source in data Serum or Plasma Carbon 32 21 - 32 mmol/L No No Mar 06 dioxide informa informa 2015 , total tion in tion in 3:34 PM source source [Moles/ data data volume] in Blood Anion 10 5 - 15 mmol/L No No Feb 9 gap in informa informa 2015 Serum tion in tion in 3:34 PM or source source Plasma data data Glucose 118 70 - mg/dl No No Feb 9 120 informa informa 2015 [Mass/v tion in tion in 3:34 PM olume] source source in data data Serum or Plasma Urea 18 7 - 18 mg/dl No No Feb 9 nitroge informa informa 2015 n tion in tion in 3:34 PM [Mass/v source source olume] data data in Serum or Plasma Creatin 1.7 0.6 - mg/dl High No Feb 9 ine 1.3 informa 2015 [Mass/v tion in 3:34 PM olume] source in data Serum or Plasma AGE 60 No yrs No No Mar 06 informa informa informa 2015 tion in tion in tion in 3:34 PM source source source data data data GFR 44 No ml/min No No Mar 06 informa informa informa 2015 tion in tion in tion in 3:34 PM source source source data data data Urea 11 6 - 25 ratio No No Mar 06 nitroge informa informa 2014 n/Creat tion in tion in 3:34 PM inine source source [Mass data data ratio] in Serum or Plasma Osmolal 273 272 - No No No Mar 06 ity of 295 informa informa informa 2015 Unspeci tion in tion in tion in 3:34 PM fied source source source specime data data data n Calcium 9.6 8.5 - mg/dl No No Mar 06 10.1 informa informa 2014 [Mass/v tion in tion in 3:34 PM olume] source source in data data Serum or Plasma Bilirub 0.5 0.2 - mg/dl No No Mar 06 in.tota 1.0 informa informa 2015 l tion in tion in 3:34 PM [Mass/v source source olume] data data in Serum or Plasma Asparta 18 15 - 37 IU/L No No Mar 06 te informa informa 2015 aminotr tion in tion in 3:34 PM ansfera source source se data data [Enzyma tic activit y/volum e] in Serum or Plasma Alanine 18 12 - 78 IU/L No No Feb 9 informa informa 2015 aminotr tion in tion in 3:34 PM ansfera source source se data data [Enzyma tic activit y/volum e] in Serum or Plasma Alkalin 69 54 - IU/L No Mar 06 e 369 informa informa 2014 phospha tion in tion in 3:34 PM tase source source [Enzyma data data tic activit y/volum e] in Serum or Plasma Protein 7.7 6.4 - g/dl No Mar 06 8.2 informa informa 2014 [Mass/v tion in tion in 3:34 PM olume] source source in data data Serum or Plasma Albumin 4.4 3.4 - g/dl No Mar 06 5.0 informa informa 2014 [Mass/v tion in tion in 3:34 PM olume] source source in data data Serum or Plasma Albumin 3.3 1.3 - g/dl No Mar 06 /Globul 3.5 informa informa 2014 in tion in tion in 3:34 PM [Mass source source ratio] data data in Serum or Plasma Albumin 1.3 1.0 - ratio No /BLDo/G Mar 06 /Globul 3.9 informa LOMERUL 2014 in tion in AR 3:34 PM [Mass source FILTRAT ratio] data ION in RATE Serum INTERPR or ETATION Plasma /BLDx/N ormal Range: >60 mL/min/ 1.73 sq metersI f patient is Tia n, multipl y GFR by 1.120.* GFR only applies to adults over the age 18. CBC W DIFF AUTOMATED Observa Value Referen Units Interpr Notes Date tion ce etation Range Leukocy 16.7 4.5 - K/uL High Mar 06 lori 11.5 2014 [#/volu tion in 3:27 PM me] in source Blood data by Automat ed count Erythro 4.52 4.60 - M/uL Low No Mar 06 cytes 6.00 inform2014 [#/volu tion in 3:27 PM me] in source Blood data by Automat ed count Hemoglo 14.2 14.0 - g/dL No Mar 06 bin 18.0 informa informa 2014 [Mass/v tion in tion in 3:27 PM olume] source source in data data Blood Hematoc 41 40 - 54 % No Mar 06 rit informa informa 2014 [Volume tion in tion in 3:27 PM source source Fractio data data n] of Blood by Automat ed count Erythro 90.7 80.0 - fL No No Mar 06 cyte 100 informa informa 2015 mean tion in tion in 3:27 PM corpusc source source ular data data volume [Entiti c volume] by Automat ed count Erythro 31.4 26.0 - pg No No Mar 06 cyte 32.0 informa informa 2015 mean tion in tion in 3:27 PM corpusc source source ular data data hemoglo bin [Entiti c mass] by Automat ed count Erythro 34.6 32.0 - g/dL No No Mar 06 cyte 36.0 informa informa 2015 mean tion in tion in 3:27 PM corpusc source source ular data data hemoglo bin concent ration [Mass/v olume] in Blood from Fetus by Automat ed count Erythro 14.1 11.5 - % No No Mar 06 cyte 14.5 informa informa 2014 distrib tion in tion in 3:27 PM ution source source width data data [Ratio] by Automat ed count Platele 190 150 - K/uL No No Mar 06 ts 450 informa informa 2015 [#/volu tion in tion in 3:27 PM me] in source source Blood data data by Automat ed count Lymphoc 6.5 18.0 - % Low No Mar 06 ytes/10 42.0 informa 2015 0 tion in 3:27 PM leukocy source lori in data Blood by Automat ed count Monocyt 8.1 2.0 - % No No Mar 06 es/100 11.0 informa informa 2015 leukocy tion in tion in 3:27 PM lori in source source Blood data data by Automat ed count Neutrop 84.6 50.0 - % High No Mar 06 hils.ba 70.0 informa 2015 nd tion in 3:27 PM form/10 source 0 data leukocy lori in Blood by Manual count Eosinop 0.40 1.00 - % Low No Feb 9 hils/10 3.00 informa 2015 0 tion in 3:27 PM leukocy source lori in data Blood by Automat ed count Basophi 0.40 0.00 - % No No Mar 06 ls/100 2.00 informa informa 2015 leukocy tion in tion in 3:27 PM lori in source source Blood data data by Automat ed count Lymphoc 1.08 0.60 - K/uL No No Nov 9 ytes/10 3.40 informa informa 2015 0 tion in tion in 3:27 PM leukocy source source lori in data data Blood by Automat ed count Monocyt 1.36 0.00 - K/uL High No Nov 9 es/100 0.90 informa 2015 leukocy tion in 3:27 PM lori in source Blood data by Automat ed count Neutrop 14.13 2.00 - K/uL High No Feb 9 hils.ba 6.90 informa 2015 nd tion in 3:27 PM form/10 source 0 data leukocy lori in Blood by Manual count Eosinop 0.06 0.00 - K/uL No No Nov 9 hils/10 0.70 informa informa 2015 0 tion in tion in 3:27 PM leukocy source source lori in data data Blood by Automat ed count Basophi 0.06 0.00 - K/uL No No Feb 9 ls/100 0.20 informa informa 2015 leukocy tion in tion in 3:27 PM lori in source source Blood data data by Automat ed count Manual SEE No No No No Nov 9 differe BELOW informa informa informa informa 2015 ntial tion in tion in tion in tion in 3:27 PM perform source source source source ed data data data data [Presen ce] in Blood Neutrop 53 40 - 75 % No No Nov 9 hils.se informa informa 2015 gmented tion in tion in 3:27 PM source source [#/volu data data me] in Blood by Manual count BANDS 30 0 - 5 % High No Nov 9 informa 2015 tion in 3:27 PM source data Lymphoc 10 16 - 46 % Low No Nov 9 ytes/10 informa 2015 0 tion in 3:27 PM leukocy source lori in data Blood Monocyt 7 0 - 12 % No No Nov 9 es informa informa 2015 [#/volu tion in tion in 3:27 PM me] in source source Blood data data Platele ADEQUAT No No No No Nov 9 ts E informa informa informa informa 2015 [Presen tion in tion in tion in tion in 3:27 PM ce] in source source source source Blood data data data data by Light microsc opy Erythro NORMAL No No No No Feb 9 cyte informa informa informa informa 2014 morphol tion in tion in tion in tion in 3:27 PM ogy source source source source finding data data data data [Identi fier] in Blood CHEST AP LA Observa Value Referen Units Interpr Notes Date tion ce etation Range CHEST No No No No Feb 9 AP LA informa informa informa informa 2014 tion in tion in tion in tion in 1:59 PM source source source source data data data data [facility]\\.br\\ [address]\\.br \\ [place] [address]\\. br\\\\.br \\ RADIOLO GY REPORT\\ .br\\ Name: AKANKSHA PATTERSON\\. br\\ Patient #: [id number] Stay Type: I/P\\.br \\ Age: 60 [facility]\\.b r\\ : 953 Sex: M\\.br\\ Orderin g Phys: PEPPER MAR MR#: [id number]\\. br\\ Family Phys: FRANCISCO HAY Pt Phone: [phone]\\. br\\ Admitti ng Phys: SHELLIE IMR\\.br \\ Unsig venus Transcr iptions represe nt a prelimi nary report and do\\.br\\ not reflect a medical or legal documen t.\\.b r\\\\.br\\ \\.br\\ [place] [address] COMPLET E:03/06 14:48 RLH 8106\\.b r\\ (REASON FOR CHEST: COUGH\\. br\\\\.br \\\\.br\\\\ .br\\ HISTORY : 60 year-ol d male with cough. Smoker. \\.br\\\\. br\\ FINDING S: PA and lateral radiogr aphs of the chest dated 03/06/20 15. Compari son is made with\\.b r\\ prior study from 5.\\.br\\ \\.br\\ The lungs are hyperex panded, as before, suggest ing chronic obstruc tive pulmona ry disease . Patchy\\ .br\\ infiltr ates of the right upper lobe. No pleural effusio n or pneumot horax is seen. Heart size is\\.br\\ normal. No acute displac ed rib fractur es are identif ied. Tiny metalli c foreign body in the left chest\\. br\\ wall anterio rly, again noted. Small electro magno device project s over the left midches t anterio rly.\\.b r\\ Stents within left lower neck and right midneck , presuma tuyet in the carotid arterie s.\\.br\\ \\.br\\ IMPRESS ION:\\.b r\\ Pneumon ia of the right upper lobe. Please obtain follow up radiogr aphs to show resolut ion.\\.b r\\\\.br\\ \\.br\\ Electro nically reviewe d and signed by:\\.br \\ Saad WELDON MD\\.br\\ RADIOLO GIST/ 08:22\\. br\\\\.br \\ Dictati on Date/Ti me: 03/06/15 /14:47 Dictate d By: Saad WELDON MD RADIOLO GIST\\.b r\\ Transcr . Date/Ti me: 17:15 Transcr . Init.: rjh\\.br \\\\.br\\ Copy for: 007 CRITICA L CARE UNIT ([facility])\\. br\\ Copy for: PEPPER BRYAN M.D.\\.b r\\\\.br\\ COMPREHENSIVE METABOLIC PANEL CMP Observa Value Referen Units Interpr Notes Date tion ce etation Range Sodium 141 136 - mmol/L No No Oct 21 [Moles/ 145 informa informa 2014 volume] tion in tion in 12:47 in source source PM Serum data data or Plasma Potassi 4.2 3.5 - mmol/L No No Oct 21 um 5.1 informa informa 2014 [Moles/ tion in tion in 12:47 volume] source source PM in data data Serum or Plasma Chlorid 104 98 - mmol/L No No Oct 21 e 107 informa informa 2014 [Moles/ tion in tion in 12:47 volume] source source PM in data data Serum or Plasma TOTAL 33 21 - 32 mmol/L High No Oct 21 CO2 informa 2014 tion in 12:47 source PM data Anion 8 5 - 15 mmol/L No No Oct 21 gap in informa informa 2015 Serum tion in tion in 12:47 or source source PM Plasma data data Glucose 92 70 - mg/dl No No Oct 21 120 informa informa 2014 [Mass/v tion in tion in 12:47 olume] source source PM in data data Serum or Plasma Urea 15 7 - 18 mg/dl No No Oct 21 nitroge informa informa 2015 n tion in tion in 12:47 [Mass/v source source PM olume] data data in Serum or Plasma Creatin 1.1 0.6 - mg/dl No No Oct 21 ine 1.3 informa informa 2015 [Mass/v tion in tion in 12:47 olume] source source PM in data data Serum or Plasma AGE 59 No yrs No No Oct 21 informa informa informa 2015 tion in tion in tion in 12:47 source source source PM data data data GFR >60 No ml/min No No Oct 21 informa informa informa 2015 tion in tion in tion in 12:47 source source source PM data data data Calcium 8.5 8.5 - mg/dl No No Oct 21 10.1 informa informa 2014 [Mass/v tion in tion in 12:47 olume] source source PM in data data Serum or Plasma Bilirub 0.3 0.2 - mg/dl No No Oct 21 in.tota 1.0 informa informa 2014 l tion in tion in 12:47 [Mass/v source source PM olume] data data in Serum or Plasma Asparta 15 15 - 37 IU/L No No Oct 21 te informa informa 2015 aminotr tion in tion in 12:47 ansfera source source PM se data data [Enzyma tic activit y/volum e] in Serum or Plasma Alanine 18 12 - 78 IU/L No No Oct 21 informa informa 2015 aminotr tion in tion in 12:47 ansfera source source PM se data data [Enzyma tic activit y/volum e] in Serum or Plasma Alkalin 63 54 - IU/L No No Oct 21 e 369 informa informa 2015 phospha tion in tion in 12:47 tase source source PM [Enzyma data data tic activit y/volum e] in Serum or Plasma Protein 6.8 6.4 - g/dl No No Oct 21 8.2 informa informa 2014 [Mass/v tion in tion in 12:47 olume] source source PM in data data Serum or Plasma Albumin 3.4 3.4 - g/dl No No Oct 21 5.0 informa informa 2014 [Mass/v tion in tion in 12:47 olume] source source PM in data data Serum or Plasma GLOBULI 3.4 1.3 - g/dl No No Oct 21 N 3.5 informa informa 2014 tion in tion in 12:47 source source PM data data A/G 1.0 1.0 - ratio No No Oct 21 RATIO 3.9 informa informa 2014 tion in tion in 12:47 source source PM data data \\BLDo\\G No No No No Oct 21 LOMERUL informa informa informa informa 2014 AR tion in tion in tion in tion in 12:47 FILTRAT source source source source PM ION data data data data RATE INTERPR ETATION \\BLDx\\ Normal No No No No Oct 21 Range: informa informa informa informa 2014 >60 tion in tion in tion in tion in 12:47 Ml/min/ source source source source PM 1.73 sq data data data data meters If No No No No Oct 21 patient informa informa informa informa 2014 is tion in tion in tion in tion in 12:47 source source source source PM data data data data Tia n, multipl y GFR by 1.120. *GFR No No No No Oct 21 only informa informa informa informa 2014 applies tion in tion in tion in tion in 12:47 to source source source source PM adults data data data data over the age 18. HEMOGLOBIN A1C Observa Value Referen Units Interpr Notes Date tion ce etation Range Hemoglo 5.8 4.5 - % No No Oct 21 bin 6.2 informa informa 2014 A1c/Hem tion in tion in 12:47 oglobin source source PM .total data data in Blood NON-CHLOE No No No No Oct 21 BETIC: informa informa informa informa 2014 <6.0% tion in tion in tion in tion in 12:47 TOTAL source source source source PM HGB data data data data CBC W DIFF AUTOMATED Observa Value Referen Units Interpr Notes Date tion ce etation Range Leukocy 5.6 4.5 - K/uL No No Oct 21 lori 11.5 informa informa 2014 [#/volu tion in tion in 12:13 me] in source source PM Blood data data by Automat ed count Erythro 4.10 4.60 - M/uL Low No Oct 21 cytes 6.00 informa 2014 [#/volu tion in 12:13 me] in source PM Blood data by Automat ed count Hemoglo 13.0 14.0 - g/dL Low No Oct 21 bin 18.0 informa 2014 [Mass/v tion in 12:13 olume] source PM in data Blood Hematoc 38 40 - 54 % Low No Oct 21 rit informa 2014 [Volume tion in 12:13 source PM Fractio data n] of Blood by Automat ed count Erythro 93.4 80.0 - fL No No Oct 21 cyte 100 informa informa 2015 mean tion in tion in 12:13 corpusc source source PM ular data data volume [Entiti c volume] by Automat ed count Erythro 31.7 26.0 - pg No No Oct 21 cyte 32.0 informa informa 2015 mean tion in tion in 12:13 corpusc source source PM ular data data hemoglo bin [Entiti c mass] by Automat ed count MCHC 33.9 32.0 - g/dL No No Oct 21 36.0 informa informa 2015 tion in tion in 12:13 source source PM data data Erythro 14.1 11.5 - % No No Oct 21 cyte 14.5 informa informa 2015 distrib tion in tion in 12:13 ution source source PM width data data [Ratio] by Automat ed count Platele 231 150 - K/uL No No Oct 21 ts 450 informa informa 2014 [#/volu tion in tion in 12:13 me] in source source PM Blood data data by Automat ed count Lymphoc 38.6 18.0 - % No No Oct 21 ytes/10 42.0 informa informa 2015 0 tion in tion in 12:13 leukocy source source PM lori in data data Blood by Automat ed count Monocyt 11.3 2.0 - % High No Oct 21 es/100 11.0 informa 2015 leukocy tion in 12:13 lori in source PM Blood data by Automat ed count Neutrop 39.5 50.0 - % Low No Oct 21 hils.ba 70.0 informa 2015 nd tion in 12:13 form/10 source PM 0 data leukocy lori in Blood by Manual count Eosinop 9.50 1.00 - % High No Oct 21 hils/10 3.00 informa 2015 0 tion in 12:13 leukocy source PM lori in data Blood by Automat ed count Basophi 1.10 0.00 - % No No Oct 21 ls/100 2.00 informa informa 2015 leukocy tion in tion in 12:13 lori in source source PM Blood data data by Automat ed count Lymphoc 2.16 0.60 - K/uL No No Oct 21 ytes/10 3.40 informa informa 2015 0 tion in tion in 12:13 leukocy source source PM lori in data data Blood by Automat ed count Monocyt 0.63 0.00 - K/uL No No Oct 21 es/100 0.90 informa informa 2015 leukocy tion in tion in 12:13 lori in source source PM Blood data data by Automat ed count Neutrop 2.21 2.00 - K/uL No No Oct 21 hils.ba 6.90 informa informa 2015 nd tion in tion in 12:13 form/10 source source PM 0 data data leukocy lori in Blood by Manual count Eosinop 0.53 0.00 - K/uL No No Oct 21 hils/10 0.70 informa informa 2015 0 tion in tion in 12:13 leukocy source source PM lori in data data Blood by Automat ed count Basophi 0.06 0.00 - K/uL No No Oct 21 ls/100 0.20 informa informa 2015 leukocy tion in tion in 12:13 lori in source source PM Blood data data by Automat ed count Manual NOT No No No No Oct 21 Diff INDICAT informa informa informa informa 2015 ED tion in tion in tion in tion in 12:13 source source source source PM data data data data BASIC METABOLIC PANEL BMP Observa Value Referen Units Interpr Notes Date tion ce etation Range Sodium 131 136 - mmol/L Low No August 26 [Moles/ 145 informa 2014 volume] tion in 5:46 PM in source Serum data or Plasma Potassi 4.2 3.5 - mmol/L No No August 26 um 5.1 informa informa 2014 [Moles/ tion in tion in 5:46 PM volume] source source in data data Serum or Plasma Chlorid 92 98 - mmol/L Low No August 26 e 107 informa 2014 [Moles/ tion in 5:46 PM volume] source in data Serum or Plasma TOTAL 34 21 - 32 mmol/L High No August 26 CO2 informa 2014 tion in 5:46 PM source data Anion 9 5 - 15 mmol/L No No August 26 gap in informa informa 2014 Serum tion in tion in 5:46 PM or source source Plasma data data Glucose 183 70 - mg/dl High No August 26 120 informa 2014 [Mass/v tion in 5:46 PM olume] source in data Serum or Plasma Urea 10 7 - 18 mg/dl No No August 26 nitroge informa informa 2015 n tion in tion in 5:46 PM [Mass/v source source olume] data data in Serum or Plasma Creatin 1.2 0.6 - mg/dl No No August 26 ine 1.3 informa informa 2014 [Mass/v tion in tion in 5:46 PM olume] source source in data data Serum or Plasma AGE 59 No yrs No No August 26 informa informa informa 2015 tion in tion in tion in 5:46 PM source source source data data data GFR >60 No ml/min No No August 26 informa informa informa 2015 tion in tion in tion in 5:46 PM source source source data data data Calcium 8.2 8.5 - mg/dl Low No August 26 10.1 informa 2014 [Mass/v tion in 5:46 PM olume] source in data Serum or Plasma BUN/CRE 8 6 - 25 ratio No No August 26 RATIO informa informa 2015 tion in tion in 5:46 PM source source data data OSMOLAL 267 272 - No Low No August 26 ITY 295 informa informa 2015 tion in tion in 5:46 PM source source data data \\BLDo\\G No No No No August 26 LOMERUL informa informa informa informa 2014 AR tion in tion in tion in tion in 5:46 PM FILTRAT source source source source ION data data data data RATE INTERPR ETATION \\BLDx\\ Normal No No No No August 26 Range: informa informa informa informa 2014 >60 tion in tion in tion in tion in 5:46 PM Ml/min/ source source source source 1.73 sq data data data data meters If No No No No August 26 patient informa informa informa informa 2014 is tion in tion in tion in tion in 5:46 PM source source source source data data data data Tia n, multipl y GFR by 1.120. *GFR No No No No August 26 only informa informa informa informa 2014 applies tion in tion in tion in tion in 5:46 PM to source source source source adults data data data data over the age 18. CBC W DIFF AUTOMATED Observa Value Referen Units Interpr Notes Date tion ce etation Range Leukocy 12.1 4.5 - K/uL High No August 26 lori 11.5 2014 [#/volu tion in 5:36 PM me] in source Blood data by Automat ed count Erythro 3.96 4.60 - M/uL Low No August 26 cytes 6.00 2014 [#/volu tion in 5:36 PM me] in source Blood data by Automat ed count Hemoglo 12.5 14.0 - g/dL Low No August 26 bin 18.0 inform2014 [Mass/v tion in 5:36 PM olume] source in data Blood Hematoc 36 40 - 54 % Low No August 26 rit informa 2014 [Volume tion in 5:36 PM source Fractio data n] of Blood by Automat ed count Erythro 91.2 80.0 - fL No No August 26 cyte 100 informa informa 2014 mean tion in tion in 5:36 PM corpusc source source ular data data volume [Entiti c volume] by Automat ed count Erythro 31.6 26.0 - pg No No August 26 cyte 32.0 informa informa 2014 mean tion in tion in 5:36 PM corpusc source source ular data data hemoglo bin [Entiti c mass] by Automat ed count MCHC 34.6 32.0 - g/dL No No August 26 36.0 informa informa 2015 tion in tion in 5:36 PM source source data data Erythro 12.9 11.5 - % No No August 26 cyte 14.5 informa informa 2015 distrib tion in tion in 5:36 PM ution source source width data data [Ratio] by Automat ed count Platele 224 150 - K/uL No August 26 ts 450 informa informa 2015 [#/volu tion in tion in 5:36 PM me] in source source Blood data data by Automat ed count Lymphoc 4.7 18.0 - % Low No August 26 ytes/10 42.0 informa 2015 0 tion in 5:36 PM leukocy source lori in data Blood by Automat ed count Monocyt 6.0 2.0 - % No No August 26 es/100 11.0 informa informa 2015 leukocy tion in tion in 5:36 PM lori in source source Blood data data by Automat ed count Neutrop 88.9 50.0 - % High No August 26 hils.ba 70.0 informa 2015 nd tion in 5:36 PM form/10 source 0 data leukocy lori in Blood by Manual count Eosinop 0.20 1.00 - % Low No August 26 hils/10 3.00 informa 2015 0 tion in 5:36 PM leukocy source lori in data Blood by Automat ed count Basophi 0.20 0.00 - % No No August 26 ls/100 2.00 informa informa 2015 leukocy tion in tion in 5:36 PM lori in source source Blood data data by Automat ed count Lymphoc 0.57 0.60 - K/uL Low No August 26 ytes/10 3.40 informa 2015 0 tion in 5:36 PM leukocy source lori in data Blood by Automat ed count Monocyt 0.72 0.00 - K/uL No No August 26 es/100 0.90 informa informa 2015 leukocy tion in tion in 5:36 PM lori in source source Blood data data by Automat ed count Neutrop 10.72 2.00 - K/uL High No August 26 hils.ba 6.90 informa 2015 nd tion in 5:36 PM form/10 source 0 data leukocy lori in Blood by Manual count Eosinop 0.03 0.00 - K/uL No No August 26 hils/10 0.70 informa informa 2014 0 tion in tion in 5:36 PM leukocy source source lori in data data Blood by Automat ed count Basophi 0.02 0.00 - K/uL No No August 26 ls/100 0.20 informa informa 2014 leukocy tion in tion in 5:36 PM lori in source source Blood data data by Automat ed count Manual NOT No No No No August 26 Diff INDICAT informa informa informa informa 2014 ED tion in tion in tion in tion in 5:36 PM source source source source data data data data CHEST AP LA Observa Value Referen Units Interpr Notes Date tion ce etation Range CHEST No No No No August 26 AP LA informa informa informa informa 2014 tion in tion in tion in tion in 5:11 PM source source source source data data data data [facility] L\\.br\\ [address]\\.br \\ [place] [address]\\. br\\\\.br \\ RADIOLO GY REPORT\\ .br\\ Name: AKANKSHA PATTERSON\\. br\\ Patient #: [id number] Stay Type: E/R\\.br \\ Age: 59 Room: [facility]\\. br\\ : 9[birth year] Sex: M\\.br\\ Orderin g Phys: ALO EN, MR#: [id number]\\. br\\ Family Phys: DAVIDSO N D Pt Phone: [phone]\\. br\\ Admitti ng Phys: OMERGA N J\\.br\\ Unsig venus Transcr iptions represe nt a prelimi nary report and do\\.br\\ not reflect a medical or legal documen t.\\.b r\\\\.br\\ \\.br\\ [place] [address] COMPLET E:08/26 17:41 ASN 11231\\. br\\ (REASON FOR CHEST: COPD\\.b r\\\\.br\\ \\.br\\\\. br\\ CLINICA L HISTORY : Shortne ss of breath and cough with hemopty sis. History of chronic \\.br\\ obstruc tive pulmona ry disease and throat carcino ma.\\.br \\\\.br\\ COMPARI SON: None.\\. br\\\\.br \\ FINDING S: PA and lateral views obtaine d. The cardiom ediasti nal silhoue tte is within normal\\ .br\\ limits. There are 2 calcifi ed nodules in the right infrahi lar region. There is bilater al peribro nchial\\ .br\\ thicken ing suggest ing bronchi tis. However , there is no pleural fluid or focal pneumon ia. There are\\.br \\ moderat e degener ative changes of the bilater al AC joints. \\.br\\\\. br\\ IMPRESS ION:\\.b r\\ Finding s of bronchi tis without focal pneumon ia.\\.br \\\\.br\\ Electro nically reviewe d and signed by:\\.br \\ JOAQUÍN MILLER MD\\.br\\ RADIOLO GIST/ 08:31\\. br\\\\.br \\ Dictati on Date/Ti me: 08/26/14:42 Dictate d By: IRAM LYLES MD RADIOLO [facility]\\.b r\\ Transcr . Date/Ti me: 08/26/14:45 Transcr . Init.: ruby\\.br \\\\.br\\ Copy for: NICHO CHANG\\.br\\ Copy for: YVONNE PEACOCK MD\\.br\\ KERRY MANCINI\\.br \\\\.br\\
--- OUTSIDE RECORDS SUMMARY | 2017-02-06 00:32 | External Medical Summary Rpt ---
[...] - 2:00 PM source [facility] data [address]TS [id number] [facility], [place], [place] [id number]Lab Directo r: Klaus Santos MD, Phone: [phone] Opiates Negativ Cutoff= No No Opiate Sep [...] - 2:15 PM source [facility] data [id number] [facility], [place], [place] [id number]Lab Directo r: Klaus Santos MD, Phone: [phone] Opiates Negativ Cutoff= No No Opiate Dec [...] metabol ic variabl es, specifi c drug chemist instrumentation ry, andspec imen charact eristic s can affect test outcome . Technic alconsu ltation is availab le if a test result is inconsi stent with anexpec dg outcome . (email- emily bullock @[email or web address] or call Taplister [phone] )Drug brands, if listed herein, are tradema rks of their respect sammy santiagoPerf ormed at: - [facility] [id number] [place], [place] [id number]Lab Directo r: Klaus Santos MD, Phone: [phone] Oxazepa Negativ Cutoff= No No No September [...] source source source data data data data [facility]\\.br\\ [address]\\.br \\ [place] [address]\\. br\\\\.br \\ ------- --NAME- ------- - NUMBER SEX AGE ADMIT DISC. XRAY# F/C TYPE\\.b r\\ AKANKSHA PATTERSON [id number] M 61 07/31/16 07/31/16 66673 XAB E/R\\.br \\ DATE OF : [birth year] M/R# [id number] PH#: RM ERTTT\\. br\\ LOCATIO N: TRANSCR IBED: 7 8:10\\.b r\\ XR HAND LEFT 3 VIEWS 92685 COMPLET ED: 09/11 21:41 [place] [address]\\. br\\ Diagnos is: .\\.br\\\\ .br\\ PHYSICI AN: [...] TIC USE ONLY TEST PERFORM ED BY: [facility] [place] [address]([phone])AR DICAL DIRECTO R: Eddie Dickson MD Urinalysis [...] 2017 tion in tion in tion in CAM.Index 10:59 source source source PLETE PM data [...] 2017 tion in tion in tion in CAM.Index 10:58 source source source PLETE PM data [...] source source source data data data data [facility] L\\.br\\ [address]\\.br \\ [place] [facility] [place] [address]\\. br\\\\.br \\ ------- --NAME- ------- - NUMBER SEX AGE ADMIT DISC. XRAY# F/C TYPE\\.b r\\ VALE YESENIA [id number] M 61 07/17/16 07/17/16 88743 XAB E/R\\.br \\ DATE OF : [birth year] M/R# [id number] PH#: RM ERFFF\\. br\\ LOCATIO N: TRANSCR IBED: 7 8:54\\.b r\\ [place] [address] COMPLET ED:06/27 07/12 26 RLH 49953\\. br\\ {REASON FOR CHEST: COUGH\\. br\\\\.br \\ [...] source source source data data data data [facility] L\\.br\\ [address]\\.br \\ [facility] Y [address]\\. br\\\\.br \\ ------- --NAME- ------- - NUMBER SEX AGE ADMIT DISC. XRAY# F/C TYPE\\.b r\\ AKANKSHA PATTERSON [id number] M 61 07/17/16 76729 XAB E/R\\.br \\ DATE OF : [birth year] M/R# [id number] PH#: RM ERFFF\\. br\\ LOCATIO N: TRANSCR IBED: 7 21:44\\. br\\ CT HEAD WITHOUT [id number] COMPLET ED: 45974\\. br\\ {REASON FOR TEST: VERTIGO \\.br\\\\. br\\ [...] source source source data data data data [facility]\\.br\\ [address]\\.br \\ [facility] Y [address]\\. br\\\\.br \\ ------- --NAME- ------- - NUMBER SEX AGE ADMIT DISC. XRAY# F/C TYPE\\.b r\\ AKANKSHA PATTERSON [id number] M 60 01/11/16 01/11/16 09342 XAB O/P\\.br \\ DATE OF : [birth year] M/R# [id number] PH#: RM\\.br\\ LOCATIO N: TRANSCR IBED: 6 10:24\\. br\\ XR MODIFIE D BA SWALLOW 48141 COMPLET ED: 95150\\. br\\ {REASON FOR TEST: DYSPHAG IA\\.br\\ \\.br\\ [...] source source source data data data data [facility]\\.br\\ [address]\\.br \\ [facility] Y [address]\\. br\\\\.br \\ ------- --NAME- ------- - NUMBER SEX AGE ADMIT DISC. XRAY# F/C TYPE\\.b r\\ VALEMARY PATTERSON [id number] M 60 12/22/15 92000 XAB E/R\\.br \\ DATE OF : [birth year] M/R# [id number] PH#: [facility]\\. br\\ LOCATIO N: TRANSCR IBED: 6 17:28\\. br\\ CT HEAD WITHOUT [id number] COMPLET ED:11/27 10/11 17:35 [facility] [address]\\. br\\ {REASON FOR TEST: syncope \\.br\\\\. br\\ [...] source source AM data data data data [facility] L\\.br\\ [address]\\.br \\ [place] [address]\\. br\\\\.br \\ ------- --NAME- ------- - NUMBER SEX AGE ADMIT DISC. XRAY# F/C TYPE\\.b r\\ VALEMARY PATTERSON [id number] M 60 07/28/15 60613 XA I/P\\.br \\ DATE OF : [birth year] M/R# [id number] PH#: RM 252\\.br \\ LOCATIO N: TRANSCR IBED: 6 12:28\\. br\\ XR MODIFIE D BA SWALLOW 39338 COMPLET ED: 08/11 10:50 AJJ 45156\\. br\\ {REASON FOR TEST: DIFF SWALLOW ING\\.br [...] BLOOD /LM53//UP01/ IS STILL REQUIRED./LM01/ Date................. Time..............Tech...................... COMMENT:_Notified_Walter_Barbara._07/29/15_@_2340_unit_ready_([facility]) ____ 07/30/15.CAM. /LM31/TO BE COMPLETED [...] BLOOD /LM53//UP01/ IS STILL REQUIRED./LM01/ Date................. Time..............Tech...................... COMMENT:_Richard_Walter_Barbara._07/29/15_@_2340_unit_ready_([facility]) ____ 07/30/15.CAM. /LM31/TO BE COMPLETED [...] BLOOD /LM53//UP01/ IS STILL REQUIRED./LM01/ Date................. Time..............Tech...................... COMMENT:_Notified_Walter_Barbara._07/29/15_@_2340_unit_ready_([facility]) ____ 07/30/15.313.CAM. /LM31/TO BE COMPLETED [...] BLOOD /LM53//UP01/ IS STILL REQUIRED./LM01/ Date................. Time..............Tech...................... COMMENT:_Notified_Walter_Barbara._07/29/15_@_2340_unit_ready_([facility]) ____ 07/30/15.CAM. /LM31/TO BE COMPLETED [...] BLOOD /LM53//UP01/ IS STILL REQUIRED./LM01/ Date................. Time..............Tech...................... COMMENT:_Notified_Walter_Barbara._unit_ready_@_2327_([facility]) ____ 07/29/15.2324.CAM. /LM31/TO BE COMPLETED [...] ------- ------- ------- ------S doug Number : [id number] Request ed : 6Specim en Source : [...] Source : Kody lauren ID # : [id number] FINAL Repor t Date : / / [...] Source : Kody lauren ID # : [id number] FINAL Repor t Date : / / [...] tion in tion in 4:15 PM s [facility] source source source source data data data [...] source source source data data data data [facility]\\.br\\ [address]\\.br \\ [place] [address]\\. br\\\\.br \\ RADIOLO GY REPORT\\ .br\\ Name: AKANKSHA PATTERSON\\. br\\ Patient #: [id number] Stay Type: E/R\\.br \\ Age: 60 Room: ERTTT\\. br\\ : 9[birth year] Sex: M\\.br\\ Orderin g Phys: EVERARDO NGOZI MR#: [id number]\\. br\\ Family Phys: FRANCISCO HAY Pt Phone: [phone] /[phone]\\. br\\ Admitti ng Phys: PRINCE MELVIN\\.br \\ Unsig venus Transcr iptions represe nt a prelimi nary report and do\\.br\\ not reflect a medical or legal documen t.\\.b r\\\\.br\\ \\.br\\ [place] [address] COMPLET E:07/26 15:01 CGS 46249\\. br\\ (REASON FOR CHEST: COUGH\\. br\\\\.br \\\\.br\\\\ [...] source source source data data data data [facility]\\.br\\ [address]\\.br \\ [place] [address]\\. br\\\\.br \\ RADIOLO GY REPORT\\ .br\\ Name: AKANKSHA PATTERSON\\. br\\ Patient #: [id number] Stay Type: I/P\\.br \\ Age: 60 Room: [facility]\\.b r\\ : 953 Sex: M\\.br\\ Orderin g Phys: PEPPER MAR MR#: [id number]\\. br\\ Family Phys: FRANCISCO HAY Pt Phone: [phone] /[phone]\\. br\\ Admitti ng Phys: SHELLIE IMR\\.br \\ Unsig venus Transcr iptions represe nt a prelimi nary report and do\\.br\\ not reflect a medical or legal documen t.\\.b r\\\\.br\\ \\.br\\ [place] [address] COMPLET E:03/06 14:48 RLH 8106\\.b r\\ (REASON [...] source source source data data data data [facility] L\\.br\\ [address]\\.br \\ [place] [address]\\. br\\\\.br \\ RADIOLO GY REPORT\\ .br\\ Name: AKANKSHA PATTERSON\\. br\\ Patient #: [id number] Stay Type: E/R\\.br \\ Age: 59 Room: [facility]\\. br\\ : 953 Sex: M\\.br\\ Orderin g Phys: ALO EN, MR#: [id number]\\. br\\ Family Phys: DAVIDSO N D Pt Phone: [phone] /[phone]\\. br\\ Admitti ng Phys: OMERGA N J\\.br\\ Unsig venus Transcr iptions represe nt a prelimi nary report and do\\.br\\ not reflect a medical or legal documen t.\\.b r\\\\.br\\ \\.br\\ [place] [address] COMPLET E:08/26 17:41 ASN 27716\\. br\\ (REASON FOR CHEST: COPD\\.b r\\\\.br\\ \\.br\\\\. [...] Dictate d By: IRAM LYLES MD RADIOLO [facility]\\.b r\\ Transcr . Date/Ti me: 08/26/14:45 Transcr . Init.: ruby\\.br \\\\.br\\ Copy for: NICHO CHANG\\.br\\ Copy for: YVONNE PEACOCK MD\\.br\\ KERRY MANCINI\\.br \\\\.br\\
--- OUTSIDE RECORDS SUMMARY | 2017-02-06 00:57 | External Medical Summary Rpt | CCD ---
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 07 L ve YR 80 20 20 63 CA OX 91 17 17 35 RE IN 0 65 E PH 10 AR 0 MA MC CY G TA #2 BL ET CL 00 05 06 30 30 00 TO Ac OP 09 -1 -0 .0 00 TA ti ID 37 8- 9- 00 07 L ve OG 31 20 20 60 CA RE 40 17 17 85 RE L 5 86 75 PH AR MG MA CY TA BL #2 ET RO 43 05 30 30 00 TO [...] 16 03 04 20 10 00 TO OX 71 -2 -1 .0 00 TA [...] 00 TA ti NE 20 - 4- 07 L ve X 51 20 20 61 CA HF 00 17 17 00 RE A 1 41 45 PH AR MC MA G CY IN VEGA #2 LE R TI 55 02 03 30 10 00 TO Ac ZA 11 -2 -1 .0 00 TA ti NI 10 7- 07 L ve DI 18 20 20 58 CA NE 01 17 17 14 RE 0 51 HC PH L AR 4 MA MG CY TA #2 BL ET AT 60 02 03 30 30 00 TO Ac OR 50 -2 -1 .0 00 TA ti VA 52 - 7- [address] 57 20 20 60 CA AT 90 17 17 72 RE IN 8 09 PH 20 AR MA MG CY TA #2 BL ET AL 00 02 03 10 5 00 TO Ac ED 60 -2 -1 .0 00 TA ti NI 35 - 7- 00 07 L ve SO 33 [...] .0 00 TA ti ON 70 7- 00 07 L ve AT 10 [...] MA OU CY S SO #2 LN AL 00 01 02 12 6 00 TO [...] 16 01 02 30 30 00 TO OP 72 -2 -1 .0 00 TA ti ID 90 4- 7- 00 07 L ve OG 21 20 20 60 CA RE 81 17 17 85 RE L 6 86 75 PH AR MG MA CY TA BL #2 ET LA 13 01 02 14 7 00 TO NO 66 -2 -1 .0 00 TA [...] IN #2 VEGA LE R SP 00 02 30 30 00 TO IR 59 -1 -1 .0 00 TA ti IV 70 4- 0- 00 07 L ve A 07 20 20 59 CA 18 54 17 17 21 RE 1 35 MC PH G AR CP MA -H CY AN DI #2 VEGA LE R AT 60 01 02 30 30 00 TO OR 50 -1 -1 .0 00 TA ti VA 52 8- 0- [address] 57 20 20 60 CA AT 90 17 17 72 RE IN 8 09 PH 20 AR MA MG CY TA #2 BL ET RO 43 01 02 30 30 00 TO PI 54 -2 -1 .0 00 TA ti NI 70 0- 0- 00 07 L ve RO 27 20 20 59 CA LE 31 17 17 66 RE 0 08 HC PH L AR 4 MA MG CY TA #2 BL ET LE 00 02 30 30 00 TO VO 37 -0 -0 .0 00 TA [...] CY TA #2 BL ET 00 12 01 30 30 00 TO Ac PI 53 [...] ti YL 15 IS 81 RE ve AL 02 20 20 LE N ED 20 11 11 JA NI 7 NE SO UG T LO NE CO 4 MP AN MG Y DO SE PK AL 50 10 10 0 24 6 CA [...] LE N RA 20 11 [address] JAMIL DE UG T 10 [...] RL 53 MA ti AM 60 6 6- 00 IS 75 RE ve ET 27 [...] N 22 11 11 JA 2% 2 DR JAMIL UG T OI NT CO ME MP [...] LE N RA 20 11 [address] JAMIL DE UG T 10 CO MP MG AN Y TA BL ET BE 65 08 08 2 90 30 CA 68 TA Ac NZ 16 -0 -0 .0 RL 45 MA ti ON 20 5 5 IS 65 RE ve AT 53 20 20 LE N AT 61 [address] JAMIL 10 UG T 0 MG CO MP [...] DR 03 [address] thomas 40 UG e MG CO MP CA AN PS Y UL E ME 16 06 06 0 12 30 CA 68 TA Ac TO 71 -2 -2 0. RL 26 MA ti CL 40 1- 1 00 IS 12 RE ve OP 06 20 20 0 LE N RA 20 [address] JAMIL DE UG T 10 CO MP MG AN Y TA BL ET 24 06 06 1 40 5 CA 68 TA Ac 48 -2 -2 .0 RL 26 MA ti 60 1- 1 IS 13 RE ve 60 20 20 [...] RL 91 t ti UM 65 7 4- 00 IS 06 Av ve 04 [...] RL 05 t ti TH 81 7 7- IS 94 Av ve YR 80 20 20 LE ai OX 30 [address] thomas E UG e 50 CO MC MP G AN TA Y BL ET NE 00 03 04 2 30 30 CA 67 No Ac XI 18 -1 -1 .0 RL 91 t ti UM 65 7 9- 00 IS 06 Av ve 04 [address] 03 [address] thomas [...] 30 11 [address] martha E UG e 50 CO MC MP G AN TA Y BL ET NE 00 12 01 2 30 30 CA 67 No Ac XI 18 -0 -0 .0 RL 54 t ti UM 65 3- 3- 00 IS 09 Av ve 04 [address] 03 [address] martha 40 UG e MG CO MP CA AN PS Y UL E NE 00 12 12 2 30 30 CA 67 No Ac XI 18 -0 -0 .0 RL 54 t ti UM 65 3- 3- 00 IS 09 Av ve 04 [address] 03 [address] martha 40 UG e MG CO MP CA AN PS Y UL E 00 08 11 5 12 30 SO 34 CO Ac 59 -0 -2 0. PE 89 ME ti 12 6- 4- 00 RS 35 R ve 22 20 20 0 BR 90 10 10 FA ET 5 LA T LY T DR MERYL PI 00 08 11 5 90 30 SO 34 CO Ac LO 11 -0 -2 .0 PE 89 ME ti CA 55 6- 4- 00 RS 36 R ve RP 92 20 20 BR IN 20 10 10 FA ET E 1 LA T HC LY T L 5 DR MG UG TA BL ET NE 00 09 10 1 30 30 SO 35 No Ac XI 18 -2 -3 .0 PE 32 t ti UM 65 9- 0- 00 RS 71 Av ve [address] 03 10 10 FA la 1 LA bl [address] UG CA PS UL E CE 68 10 10 0 28 7 SO 35 No Ac PH 18 -2 -2 .0 PE 52 t ti AL 00 RS 38 Av ve EX 12 20 20 ai IN 20 10 10 FA la 2 LA bl 50 LY e [address] UG CA PS UL E 00 08 10 5 12 30 SO 34 CO Ac 59 -0 -1 0. PE 89 ME ti 12 6 00 RS 35 R ve 22 20 20 0 BR 90 10 10 FA ET 5 LA T LY T DR UG PI 00 08 10 5 90 30 SO 34 CO Ac LO 11 -0 -1 .0 PE 89 ME ti CA 55 6 RS 36 R ve RP 92 20 20 BR IN 20 10 10 FA ET E 1 LA T HC LY T L 5 DR MG UG TA BL ET [place] 00 09 09 0 24 5 SO [address] 60 -2 -2 0. PE 32 t ti AT 31 RS 70 Av ve IN 48 20 20 0 ai 15 10 10 FA la 10 8 LA bl 0, LY e [address] UN UG IT /M L GARCIA SP NE 00 09 09 1 30 30 SO 35 No Ac XI 18 -2 -2 .0 PE 32 t ti UM 65 RS 71 Av ve [address] 03 10 10 FA la 1 LA bl [address] UG CA PS UL E 00 09 09 0 23 26 SO 35 No Ac 12 -2 -2 65 PE 25 t ti 10 1- 1- .0 RS 91 Av ve 65 20 20 00 ai 51 10 10 FA la 6 LA bl LY e DR UG GARCIA 00 09 09 0 30 15 SO 35 No Ac LF 60 -2 -2 .0 PE 25 t ti AM 35 RS 92 Av ve ET 78 20 20 ai HO 12 10 10 FA la XA 8 LA bl ZO LY e LE -T DR MP UG DS TA BL ET LI 50 09 09 0 10 5 SO 35 No Ac DO 38 -2 -2 0. PE 25 t ti CA 30 1 RS 93 Av ve IN 77 20 20 0 ai E 50 10 10 FA la 2% 4 LA bl LY e SC DR OU UG S SO LN 00 08 09 5 12 30 SO 34 CO Ac 59 -0 -1 0. PE 89 ME ti 12 6- 3- 00 RS 35 R ve 22 20 20 0 BR 90 10 10 FA ET 5 LA T LY T DR UG PI 00 08 09 5 90 30 SO 34 CO Ac LO 11 -0 -1 .0 PE 89 ME ti CA 55 6- 3- 00 RS 36 R ve RP 92 20 20 BR IN 20 10 10 FA ET E 1 LA T HC LY T L 5 DR MG UG TA BL ET 00 08 08 0 30 3 SO 34 No Ac 12 -1 -1 0. PE 96 t ti 10 7- 7- 00 RS 80 Av ve 65 20 20 0 ai 51 10 10 FA la 6 LA bl LY e DR UG 00 08 08 5 12 30 SO 34 CO Ac 59 -0 -0 0. PE 89 ME ti 12 6- 6- 00 RS 35 R ve 22 20 20 0 BR 90 10 10 FA ET 5 LA T LY T DR UG PI 00 08 08 5 90 30 SO 34 CO Ac LO 11 -0 -0 .0 PE 89 ME ti CA 55 6- 6- 00 RS 36 R ve RP 92 20 20 BR IN 20 10 10 FA ET E 1 LA T HC LY T L 5 DR MG UG TA BL ET PE 00 07 08 1 59 1 SO 34 No Ac RM 47 -1 -0 .0 PE 73 t ti ET 25 9- 5- 00 RS 87 Av ve HR 24 20 20 ai IN 26 10 10 FA la 7 LA bl 1% LY e LO DR TI UG ON FL 00 08 08 0 5. 5 SO 34 No Ac UC 17 -0 -0 00 PE 87 t ti ON 25 5- 5- 0 RS 61 Av ve AZ 41 20 20 ai OL 21 10 10 FA la E 1 LA bl 15 LY e [address] UG TA BL ET AL 60 07 08 5 50 16 WA 74 AL Ac OM 43 -2 -0 0. L- 79 AB ti ET 20 7- 2- 00 MA 88 HU ve VEGA 60 20 20 0 RT 5 ZI 81 10 10 AL NE 6 PH AM AR OD 6. MA V 25 CY # MG /5 10 15 ML 69 SY RP AM 00 07 07 0 28 9 SO 34 No Ac OX 78 -2 -2 .0 PE 81 t ti -C 11 8- 8- 00 RS 22 Av ve LA 83 20 20 ai V 12 10 10 FA la 50 0 LA bl 0- LY e [address] MG UG TA BL ET AL 00 07 07 1 12 30 WA [...] IN 26 10 10 FA la 7 LA bl 1% LY e LO DR TI UG ON RO 00 07 07 0 44 7 WA 22 SA Ac XI 05 -0 -0 0. L- 33 PP ti CE 43 9 9- 00 MA 29 ve T 68 20 20 0 RT 0 CH 5- 66 10 10 RI [address] 5 AR Y OR MA M AL CY # SO MANDO 10 TI 15 ON 69 [place] 00 07 07 0 30 10 [place] [address] 60 -0 -0 0. L- 77 PP ti AT 31 9- 00 MA 41 ve IN 48 20 20 0 RT 7 CH 15 10 10 RI [address] 0, AR Y 00 MA M 0 CY UN # IT /M 10 L 15 GARCIA 69 SP CI 00 07 07 0 14 7 WA 74 SA Ac AL 37 -0 -0 .0 L- 77 PP ti OF 87 9- 00 MA 41 ve LO 09 20 [...] MA M CY # 10 15 69 AL 00 04 06 5 30 5 WA 74 SA Ac OC 78 -3 -2 .0 L- 66 PP ti HL 15 0- 5- 00 MA 40 ve OR 02 20 20 RT 8 CH PE 10 10 10 RI RA [address] ZI AR Y NE MA M CY 10 # MG 10 15 TA 69 B AL 00 06 06 1 30 30 WA [...] 06 06 3 14 14 WA 74 AL Ac UC 09 -1 -1 0. L- 73 AB ti ON 35 4- 4- 00 MA 39 HU ve AZ 41 20 20 0 RT 8 OL 49 10 10 AL E 5 PH AM 10 AR OD MA V MG CY /M # L GARCIA 10 SP 15 69 00 06 06 5 24 12 WA 74 AL Ac 09 -0 -0 0. L- 72 AB ti 39 7- 7- 00 MA 24 HU ve 63 20 20 0 RT 1 48 10 10 AL 7 PH AM AR OD MA V CY # 10 15 69 AL 00 04 06 5 30 5 WA [...] 06 06 5 40 30 WA 74 AL Ac LV 59 -0 -0 0. L- 71 AB ti ER 10 1- 2- 00 MA 39 HU ve 81 20 20 0 RT 7 GARCIA 04 10 10 AL LF 6 PH AM AD AR OD IA MA V ZI CY NE # 1% 10 15 CR 69 EA M GARCIA 00 08 08 00 20 10 SO 29 No Ac LF 60 -1 -2 .0 PE 05 t ti AM 35 2- 8- 00 RS 67 Av ve ET 78 20 20 ai HO 12 08 08 FA la XA 8 LA bl ZO LY e LE -T DR MP UG DS TA BL ET LI 00 10 08 01 30 30 SO 26 No Ac PI 07 -2 -2 .0 PE 59 t ti TO 10 9- 8- 00 RS 29 Av ve R 15 20 20 ai 40 72 07 08 FA la 3 LA bl MG LY e TA DR BL UG ET AL 37 07 08 01 56 28 SO 28 No Ac IL 00 -0 -2 .0 PE 78 t ti OS 00 7- 8- 00 RS 89 Av ve EC 45 20 20 ai 50 08 08 FA la OT 4 LA bl C LY e [address] UG MG TA BL ET 15 08 08 00 20 10 SO 29 No Ac 68 -2 -2 .0 PE 14 t ti 60 2- 8- 00 RS 39 Av ve 10 20 20 ai 20 08 08 FA la 5 LA bl LY e DR UG FL 60 08 08 00 16 7 SO 29 No Ac UT 50 -1 -2 .0 PE 08 t ti IC 50 4- 8- 00 RS 07 Av ve 82 20 20 ai ON 90 08 08 FA la E 1 LA bl AL LY e OP DR 50 UG MC [...] ai 83 08 08 FA la 2 LA bl LY e DR UG 00 08 08 00 20 4 SO 29 No Ac 59 -1 -2 .0 PE 06 t ti 10 3- 8- 00 RS 85 Av ve 34 20 20 ai 90 08 08 FA la 5 LA bl LY e DR UG 00 08 08 00 80 10 SO 29 No Ac 78 -1 -2 .0 PE 06 t ti 12 3- 8- 00 RS 84 Av ve 11 20 20 ai 20 08 08 FA la 1 LA bl LY e DR UG 00 08 08 00 21 6 SO 29 No Ac 55 -1 -2 .0 PE 08 t ti 50 4- 8- 00 RS 08 Av ve 30 20 20 ai 13 08 08 FA la 8 LA bl LY e DR UG PE 45 07 08 00 60 1 SO 28 No Ac RM 80 -1 -0 .0 PE 86 t ti ET 20 6- 1- 00 RS 97 Av ve HR 26 20 20 ai IN 93 08 08 FA la 7 LA bl 5% LY e CR DR EA [...] 40 72 07 08 FA la 3 LA bl MG LY e TA DR BL UG ET AL 37 07 07 00 56 28 SO 28 No Ac IL 00 -0 -1 .0 PE 78 t ti OS 00 7- 7- 00 RS 89 Av ve EC 45 20 20 ai 50 08 08 FA la OT 4 LA bl C LY e [address] UG MG TA BL ET TH 50 04 07 03 60 30 SO 28 No Ac EO 11 -0 -1 .0 PE 10 t ti PH 10 8- 7- 00 RS 88 Av ve YL 48 20 20 ai LI 20 08 08 FA la NE 2 LA bl LY e ER DR 20 UG 0 MG TA BL ET AM 00 06 07 00 30 30 SO 28 No Ac IT 78 -2 -0 .0 PE 69 t ti RI 11 3- 3- 00 RS 84 Av ve PT 48 20 20 ai YL 71 08 08 FA la IN 0 LA bl E LY e HC L DR 25 UG MG TA B TR 65 06 07 00 90 30 SO 28 No Ac AM 16 -2 -0 .0 PE 69 t ti AD 20 3- 3- 00 RS 86 Av ve OL 62 20 20 ai 75 08 08 FA la HC 0 LA bl L LY e 50 DR MG [...] 40 72 08 08 FA la 3 LA bl MG LY e TA DR BL UG ET AL 37 03 06 02 56 28 SO 28 No Ac IL 00 -2 -1 .0 PE 02 t ti OS 00 7- 2- 00 RS 17 Av ve EC 35 20 20 ai 90 08 08 FA la OT 7 LA bl C LY e [address] UG MG TA BL ET TH 50 04 06 02 60 30 SO 28 No Ac EO 11 -0 -1 .0 PE 10 t ti PH 10 8- 2- 00 RS 88 Av ve YL 48 20 20 ai LI 20 08 08 FA la NE 2 LA bl LY e ER DR 20 UG 0 MG TA BL ET 66 01 06 02 30 30 YO 15 No Ac 79 -2 -0 0. UR 36 t ti 40 8- 5- 00 1 Av ve 00 20 20 0 PH ai 26 08 08 AR la 0 MA bl CY e AL 37 03 05 01 56 28 SO 28 No Ac IL 00 -2 -2 .0 PE 02 t ti OS 00 7- 2 00 RS 17 Av ve EC 45 20 20 ai 50 08 08 FA la OT 3 LA bl C LY e [address] UG MG TA BL ET LI 00 02 05 02 30 30 SO 27 No Ac PI 07 -2 -2 .0 PE 67 t ti TO 10 1 2 RS 83 Av ve R 15 20 20 ai 40 72 08 08 FA la 3 LA bl MG LY e TA DR BL UG ET TH 50 04 05 01 60 30 SO 28 No Ac EO 11 -0 -2 .0 PE 10 t ti PH 10 8- 2- 00 RS 88 Av ve YL 48 20 20 ai LI 20 08 08 FA la NE 2 LA bl LY e ER DR 20 UG 0 MG TA BL ET BE 68 04 04 00 20 20 SO 28 No Ac NZ 38 -0 -2 .0 PE 10 t ti ON 20 8- 4- 00 RS 89 Av ve AT 24 20 20 ai AT 80 08 08 FA la E 1 LA bl 20 LY e [address] UG CA PS UL E 63 04 04 00 12 30 SO 28 No Ac 82 -0 -2 0. PE 10 t ti 40 8- 4- 00 RS 87 Av ve 00 20 20 0 ai 81 08 08 FA la 0 LA bl LY e DR UG AZ 00 04 04 00 6. 5 SO 28 No Ac IT 78 -0 -2 00 PE 10 t ti HR 11 8- 4- 0 RS 86 Av ve OM 49 20 20 ai YC 66 08 08 FA la IN 8 LA bl LY e [address] MG UG TA BL ET 00 04 04 00 21 6 SO 28 No Ac 55 -0 -2 .0 PE 10 t ti 50 8- 4- 00 RS 85 Av ve 30 20 20 ai 13 08 08 FA la 8 LA bl LY e DR UG TH 50 04 04 00 60 30 SO 28 No Ac EO 11 -0 -2 .0 PE 10 t ti PH 10 8- 4- 00 RS 88 Av ve YL 48 20 20 ai LI 20 08 08 FA la NE 2 LA bl LY e ER DR 20 UG 0 MG TA BL ET AL 37 03 04 00 56 28 SO 28 No Ac IL 00 -2 -1 .0 PE 02 t ti OS 00 7- 0- 00 RS 17 Av ve EC 45 20 20 ai 50 08 08 FA la OT 3 LA bl C LY e [address] UG MG TA BL ET LI 00 02 04 01 30 30 SO 27 No Ac PI 07 -2 -1 .0 PE 67 t ti TO 10 1- 0- 00 RS 83 Av ve R 15 20 20 ai 40 72 08 08 FA la 3 LA bl MG LY e TA DR BL [...] 40 72 08 08 FA la 3 LA bl MG LY e TA DR BL UG ET 66 01 03 00 30 30 YO 15 No Ac 79 -2 -2 0. UR 36 t ti 40 8- 6- 00 1 Av ve 00 20 20 0 PH ai 26 08 08 AR la 0 MA bl CY e AL 37 01 03 01 56 28 SO 27 No Ac IL 00 -1 -2 .0 PE 26 t ti OS 00 4- 6- 00 RS 51 Av ve EC 45 20 20 ai 50 08 08 FA la OT 3 LA bl C LY e [address] UG MG TA BL ET LI 00 10 03 02 30 30 SO 26 No Ac PI 07 -2 -2 .0 PE 59 t ti TO 10 9- 5- 00 RS 30 Av ve R 15 20 20 ai 40 72 07 08 FA la 3 LA bl MG LY e TA DR BL UG ET AL 37 01 03 00 56 28 SO 27 No Ac IL 00 -1 -2 .0 PE 26 t ti OS 00 4- 5- 00 RS 51 Av ve EC 45 20 20 ai 50 08 08 FA la OT 3 LA bl C LY e [address] [...] S 0.5 ML DOSA GE IM USE Results Labs Lab Lab Date Result Refere Interp Status Commen Order Detail nces retati t Range on Differential panel, method unspecified - (01-27-2017 05:00) LYMPH 3 % 10% - Low complet 017 50% ed 05:00 Platele NORMAL complet ts 017 ed [Presen 05:00 ce] in Blood by Light microsc opy Poikilo SL. complet cytosis 017 ed 05:00 [Presen ce] in Blood by Light microsc opy Polychr SL. complet omasia 017 ed [Presen 05:00 ce] in Blood by Light microsc opy Rouleau SL. complet x 017 ed [Presen 05:00 ce] in Blood by Light microsc opy Drugs identified in Urine by Screen method (01-13-2017 14:00) Ampheta NEGATIV <1000 complet mine 017 E ed [Presen 14:00 ce] in Urine by Screen method 11-Hydr NEGATIV <50 complet oxy 017 E ed delta-9 14:00 tetrahy drocann abinol [Presen ce] in Unspeci fied specime n Drugs identified in Urine by Screen method (12-13-2016 14:15) Ampheta NEGATIV <1000 complet mine 017 E ed [Presen 14:15 ce] in Urine by Screen method 11-Hydr NEGATIV <50 complet oxy 017 E ed delta-9 14:15 tetrahy drocann abinol [Presen ce] in Unspeci fied specime n Drugs identified in Urine by Screen method (11-13-2016 14:10) Ampheta NEGATIV <1000 complet mine 017 E ed [Presen 14:10 ce] in Urine by Screen method 11-Hydr NEGATIV <50 complet oxy 017 E ed delta-9 14:10 tetrahy drocann abinol [Presen ce] in Unspeci fied specime n Drugs identified in Urine by Screen method (10-15-2016 15:05) Ampheta NEGATIV <1000 complet mine 017 E ed [Presen 15:05 ce] in Urine by Screen method 11Hydr NEGATIV <50 complet oxy 017 E ed delta-9 15:05 tetrahy drocann abinol [Presen ce] in Unspeci fied specime n Drug abuse CCC (07-17-2016 20:42) DETECTI complet 017 ON ed 20:42 LIMIT Drug NEG. complet abuse 017 ed CCC 20:42 Benzodi NEG. complet azepine 017 ed s 20:42 [Mass/v olume] in Urine Cocaine NEG. complet 017 ed [Mass/v 20:42 olume] in Urine Methado NEG. complet ne 017 ed [Mass/v 20:42 olume] in Urine Platele NEG. complet ts 017 ed [#/volu 20:42 me] in Blood by Automat ed count Phencyc NEG. complet lidine 017 ed [Mass/v 20:42 olume] in Urine Cannabi NEG. complet noids 017 ed [Mass/v 20:42 olume] in Urine Oxycodo POSITIV complet ne 017 E ed [Mass/m 20:42 ass] in Hair Urinalysis dipstick W Reflex Microscopic panel in Urine (07-17-2016 20:42) Color YELLOW NL: complet of 017 Negativ ed Urine 20:42 e Appeara CLEAR NL: complet nce of 017 Negativ ed Urine 20:42 e Glucose NEG NL: complet 017 Negativ ed [Mass/v 20:42 e olume] in Urine by Test strip Bilirub 1+ NL: Abnorma complet in 017 Negativ l ed [Presen 20:42 e ce] in Urine by Test strip Ketones TRACE NL: complet 017 Negativ ed [Presen 20:42 e ce] in Serum or Plasma Specifi 1.025 NL: complet c 017 1.00 >= ed gravity 20:42 1.030 of Urine Hemoglo NEG NL: complet bin 017 Negativ ed [Presen 20:42 e ce] in Urine by Test strip pH of 5.0 NL: complet Urine 017 ed by Test 20:42 strip Protein 1+ NL: Abnorma complet 017 Negativ l ed [Presen 20:42 e ce] in Urine by Test strip Urobili 0.2 NL: 0.2 complet nogen 017 - 1.0 ed [Mass/v 20:42 olume] in Urine by Test strip Nitrite NEG NL: complet 017 Negativ ed [Presen 20:42 e ce] in Urine by Test strip Leukocy TRACE NL: complet lori 017 Negativ ed [#/volu 20:42 e me] in Blood by Automat ed count Leukocy 0 - 3 NL: complet lori 017 NEGATIV ed [#/volu 20:42 E me] in Blood by Automat ed count Erythro 0 - 3 NL: Abnorma complet cytes 017 NEGATIV l ed [#/volu 20:42 E me] in Blood by Automat ed count Epithel 0 - 3 NL: complet ial 017 NEGATIV ed cells 20:42 E [#/area ] in Urine sedimen t by Microsc opy high power field Bacteri NEGATIV NL: complet a 017 E NEGATIV ed [#/area 20:42 E ] in Urine sedimen t by Microsc opy high power field Mucus NEGATIV NL: complet [Presen 017 E NEGATIV ed ce] in 20:42 E Urine sedimen t by Light microsc opy Yeast NEGATIV NL: complet [Presen 017 E NEGATIV ed ce] in 20:42 E Unspeci fied specime n by Wet prepara tion Casts SEE NL: complet type 017 BELOW NEGATIV ed not 20:42 E specifi ed [Presen ce] in Urine by Compute r assiste d method Granula 0 - 3 Abnorma complet r casts 017 l ed 20:42 [Presen ce] in Urine sedimen t by Light microsc opy Hyaline 3 - 5 complet casts 017 ed [#/area 20:42 ] in Urine sedimen t by Microsc opy low power field Crystal NEGATIV NL: complet s 017 E NEGATIV ed [type] 20:42 E in Urine sedimen t by Light microsc opy Additio C CATCH complet nal 017 ed comment 20:42 s RFC CULTURE NOT complet SETUP 017 INDIC ed 20:42 Bacteria identified in Blood by Culture (07-17-2016 20:40) STATUS PRELIMI complet 017 NARY ed 20:40 RESULT NO complet 017 GROWTH ed 20:40 AT 1 DAY RESULTE CAM complet D BY 017 ed 20:40 STATUS FINAL complet 017 ed 20:40 RESULT NO complet 017 GROWTH ed 20:40 5 DAYS SEND 03-22-2 Y complet PHARM/I 017 ed C 20:40 SEND TO Y complet ER 017 ed 20:40 Bacteria identified in Blood by Culture (07-17-2016 20:33) STATUS PRELIMI complet 017 NARY ed 20:33 RESULT NO complet 017 GROWTH ed 20:33 AT 1 DAY RESULTE CAM complet D BY 017 ed 20:33 STATUS FINAL complet 017 ed 20:33 RESULT NO complet 017 GROWTH ed 20:33 5 DAYS SEND Y complet PHARM/I 017 ed C 20:33 SEND TO Y complet ER 017 ed 20:33 Thyrotropin [Units/volume] in Serum or Plasma by Detection limit <= 0.05 mIU/L (07-17-2016 20:33) Thyrotr 0.55 0.36 - complet opin 017 uIU/mL 3.74 ed [Units/ 20:33 volume] in Serum or Plasma by Detecti on limit <= 0.05 mIU/L Thyroxine (T4) free [Mass/volume] in Serum or Plasma (07-17-2016 20:33) Thyroxi 0.99 0.76 - complet ne (T4) 017 ng/dL 1.46 ed free 20:33 [Mass/v olume] in Serum or Plasma Comprehensive metabolic 1998 panel in Serum or Plasma (07-17-2016 20:33) Sodium 134 136 - Low complet [Moles/ 017 mmol/L 145 ed volume] 20:33 in Serum or Plasma Potassi 4.4 3.5 - complet um 017 mmol/L 5.1 ed [Moles/ 20:33 volume] in Serum or Plasma Chlorid 98 98 - complet e 017 mmol/L 107 ed [Moles/ 20:33 volume] in Serum or Plasma Carbon 29 21 - 32 complet dioxide 017 mmol/L ed , total 20:33 [Moles/ volume] in Blood Anion 11 5 - 15 complet gap in 017 mmol/L ed Serum 20:33 or Plasma Glucose 133 70 - High complet 017 mg/dl 120 ed [Mass/v 20:33 olume] in Serum or Plasma Urea 27 7 - 18 High complet nitroge 017 mg/dl ed n 20:33 [Mass/v olume] in Serum or Plasma Creatin 1.7 0.6 - High complet ine 017 mg/dl 1.3 ed [Mass/v 20:33 olume] in Serum or Plasma AGE 03 61 yrs complet 017 ed 20:33 GFR 43 complet 017 ml/min ed 20:33 Urea 16 6 - 25 complet nitroge 017 ratio ed n/Creat 20:33 inine [Mass ratio] in Serum or Plasma Osmolal 275 272 - complet ity of 017 295 ed Unspeci 20:33 fied specime n Calcium 8.6 8.5 - complet 017 mg/dl 10.1 ed [Mass/v 20:33 olume] in Serum or Plasma Bilirub 0.5 0.2 - complet in.tota 017 mg/dl 1.0 ed l 20:33 [Mass/v olume] in Serum or Plasma Asparta 13 IU/L 15 - 37 Low complet te 017 ed aminotr 20:33 ansfera se [Enzyma tic activit y/volum e] in Serum or Plasma Alanine 15 IU/L 12 - 78 complet 017 ed aminotr 20:33 ansfera se [Enzyma tic activit y/volum e] in Serum or Plasma Alkalin 61 IU/L 54 - complet e 017 369 ed phospha 20:33 tase [Enzyma tic activit y/volum e] in Serum or Plasma Protein 7.1 6.4 - complet 017 g/dl 8.2 ed [Mass/v 20:33 olume] in Serum or Plasma Albumin 3.4 3.4 - complet 017 g/dl 5.0 ed [Mass/v 20:33 olume] in Serum or Plasma Albumin 3.7 1.3 - High complet /Globul 017 g/dl 3.5 ed in 20:33 [Mass ratio] in Serum or Plasma Albumin 0.9 1.0 - Low complet /Globul 017 ratio 3.9 ed in 20:33 [Mass ratio] in Serum or Plasma Ethanol [Mass/volume] in Serum or Plasma (07-17-2016 20:33) Ethanol <3 20 - Low complet 017 300 ed [Mass/v 20:33 olume] in Serum or Plasma Troponin I.cardiac [Mass/volume] in Serum or Plasma (07-17-2016 20:33) Troponi 0.01 0.00 - complet n 017 ng/ml 0.05 ed I.cardi 20:33 ac [Mass/v olume] in Serum or Plasma Additio YES complet nal 017 ed comment 20:33 s RFC Microbi LISA complet ology 017 L 2133 ed studies 20:33 07/17/16 (set) PV Magnesium [Mass/volume] in Serum or Plasma (07-17-2016 20:33) Magnesi 1.7 1.8 - Low complet um 017 mg/dL 2.4 ed [Mass/v 20:33 olume] in Serum or Plasma Lipase [Enzymatic activity/volume] in Serum or Plasma (07-17-2016 20:33) Lipase 93 U/L 73 - complet [Enzyma 017 393 ed tic 20:33 activit y/volum e] in Serum or Plasma Platelet; Plt; Thrombocytes; Platelt; Thrb; Thrombocyte; Diff Pnl; Point in time (07-17-2016 20:33) Leukocy 16.2 4.5 - High complet lori 017 K/uL 11.5 ed [#/volu 20:33 me] in Blood by Automat ed count Erythro 4.20 4.60 - Low complet cytes 017 M/uL 6.00 ed [#/volu 20:33 me] in Blood by Automat ed count Hemoglo 13.4 14.0 - Low complet bin 017 g/dL 18.0 ed [Mass/v 20:33 olume] in Blood Hematoc 39 % 40 - 54 Low complet rit 017 ed [Volume 20:33 Fractio n] of Blood by Automat ed count Erythro 93.3 fL 80.0 - complet cyte 017 100 ed mean 20:33 corpusc ular volume [Entiti c volume] by Automat ed count Erythro 31.9 pg 26.0 - complet cyte 017 32.0 ed mean 20:33 corpusc ular hemoglo bin [Entiti c mass] by Automat ed count Erythro 34.2 32.0 - complet cyte 017 g/dL 36.0 ed mean 20:33 corpusc ular hemoglo bin concent ration [Mass/v olume] in Blood from Fetus by Automat ed count Erythro 14.9 % 11.5 - High complet cyte 017 14.5 ed distrib 20:33 ution width [Ratio] by Automat ed count Platele 212 150 - complet ts 017 K/uL 450 ed [#/volu 20:33 me] in Blood by Automat ed count Lymphoc 7.2 % 18.0 - Low complet ytes/10 017 42.0 ed 0 20:33 leukocy loir in Blood by Automat ed count Monocyt 9.5 % 2.0 - complet es/100 017 11.0 ed leukocy 20:33 lori in Blood by Automat ed count Neutrop 82.7 % 50.0 - High complet hils.ba 017 70.0 ed nd 20:33 form/10 0 leukocy lori in Blood by Manual count Eosinop 0.40 % 1.00 - Low complet hils/10 017 3.00 ed 0 20:33 leukocy lori in Blood by Automat ed count Basophi 0.20 % 0.00 - complet ls/100 017 2.00 ed leukocy 20:33 lori in Blood by Automat ed count Lymphoc 1.17 0.60 - complet ytes/10 017 K/uL 3.40 ed 0 20:33 leukocy lori in Blood by Automat ed count Monocyt 1.53 0.00 - High complet es/100 017 K/uL 0.90 ed leukocy 20:33 lori in Blood by Automat ed count Neutrop 13.38 2.00 - High complet hils.ba 017 K/uL 6.90 ed nd 20:33 form/10 0 leukocy lori in Blood by Manual count Eosinop 0.06 0.00 - complet hils/10 017 K/uL 0.70 ed 0 20:33 leukocy lori in Blood by Automat ed count Basophi 0.03 0.00 - complet ls/100 017 K/uL 0.20 ed leukocy 20:33 lori in Blood by Automat ed count Manual SLIDE complet differe 017 SCAN-OK ed ntial 20:33 perform ed [Presen ce] in Blood Influenza virus A \T\ B Ag (07-17-2016 20:33) Influen NEGATIV complet za 017 E ed virus A 20:33 Ag [Presen ce] in Unspeci fied specime n Influen NEGATIV complet za 017 E ed virus B 20:33 Ag [Presen ce] in Unspeci fied specime n Lactate [Mass/volume] in Serum or Plasma (07-17-2016 20:33) Lactate 1.10 0.40 - complet 017 mmol/L 2.00 ed [Mass/v 20:33 olume] in Serum or Plasma Basic metabolic 2000 panel in Serum or Plasma (07-31-2015 05:40) Sodium 129 136 - Low complet [Moles/ 016 mmol/L 145 ed volume] 05:40 in Serum or Plasma Potassi 4.2 3.5 - complet um 016 mmol/L 5.1 ed [Moles/ 05:40 volume] in Serum or Plasma Chlorid 93 98 - Low complet e 016 mmol/L 107 ed [Moles/ 05:40 volume] in Serum or Plasma Carbon 28 21 - 32 complet dioxide 016 mmol/L ed , total 05:40 [Moles/ volume] in Blood Anion 12 5 - 15 complet gap in 016 mmol/L ed Serum 05:40 or Plasma Glucose 127 70 - High complet 016 mg/dl 120 ed [Mass/v 05:40 olume] in Serum or Plasma Urea 11 7 - 18 complet nitroge 016 mg/dl ed n 05:40 [Mass/v olume] in Serum or Plasma Creatin 1.2 0.6 - complet ine 016 mg/dl 1.3 ed [Mass/v 05:40 olume] in Serum or Plasma AGE 04 60 yrs complet 016 ed 05:40 GFR >60 complet 016 ed 05:40 Calcium 8.4 8.5 - Low complet 016 mg/dl 10.1 ed [Mass/v 05:40 olume] in Serum or Plasma Urea 9 ratio 6 - 25 complet nitroge 016 ed n/Creat 05:40 inine [Mass ratio] in Serum or Plasma Osmolal 260 272 - Low complet ity of 016 295 ed Unspeci 05:40 fied specime n CBC W DIFF AUTOMATED (07-31-2015 05:40) Leukocy 9.8 4.5 - complet lori 016 K/uL 11.5 ed [#/volu 05:40 me] in Blood by Automat ed count Erythro 4.08 4.60 - Low complet cytes 016 M/uL 6.00 ed [#/volu 05:40 me] in Blood by Automat ed count Hemoglo 12.3 14.0 - Low complet bin 016 g/dL 18.0 ed [Mass/v 05:40 olume] in Blood Hematoc 36 % 40 - 54 Low complet rit 016 ed [Volume 05:40 Fractio n] of Blood by Automat ed count Erythro 88.0 fL 80.0 - complet cyte 016 100 ed mean 05:40 corpusc ular volume [Entiti c volume] by Automat ed count Erythro 30.1 pg 26.0 - complet cyte 016 32.0 ed mean 05:40 corpusc ular hemoglo bin [Entiti c mass] by Automat ed count Erythro 34.3 32.0 - complet cyte 016 g/dL 36.0 ed mean 05:40 corpusc ular hemoglo bin concent ration [Mass/v olume] in Blood from Fetus by Automat ed count Erythro 14.6 % 11.5 - High complet cyte 016 14.5 ed distrib 05:40 ution width [Ratio] by Automat ed count Platele 114 150 - Low complet ts 016 K/uL 450 ed [#/volu 05:40 me] in Blood by Automat ed count Lymphoc 4.0 % 18.0 - Low complet ytes/10 016 42.0 ed 0 05:40 leukocy lori in Blood by Automat ed count Monocyt 11.5 % 2.0 - High complet es/100 016 11.0 ed leukocy 05:40 lori in Blood by Automat ed count Neutrop 81.1 % 50.0 - High complet hils.ba 016 70.0 ed nd 05:40 form/10 0 leukocy lori in Blood by Manual count Eosinop 3.20 % 1.00 - High complet hils/10 016 3.00 ed 0 05:40 leukocy lori in Blood by Automat ed count Basophi 0.20 % 0.00 - complet ls/100 016 2.00 ed leukocy 05:40 lori in Blood by Automat ed count Lymphoc 0.39 0.60 - Low complet ytes/10 016 K/uL 3.40 ed 0 05:40 leukocy lori in Blood by Automat ed count Monocyt 1.13 0.00 - High complet es/100 016 K/uL 0.90 ed leukocy 05:40 lori in Blood by Automat ed count Neutrop 7.94 2.00 - High complet hils.ba 016 K/uL 6.90 ed nd 05:40 form/10 0 leukocy lori in Blood by Manual count Eosinop 0.31 0.00 - complet hils/10 016 K/uL 0.70 ed 0 05:40 leukocy lori in Blood by Automat ed count Basophi 0.02 0.00 - complet ls/100 016 K/uL 0.20 ed leukocy 05:40 lori in Blood by Automat ed count Manual NOT complet differe 016 INDICAT ed ntial 05:40 ED perform ed [Presen ce] in Blood Basic metabolic 2000 panel in Serum or Plasma (07-30-2015 08:40) Sodium 131 136 - Low complet [Moles/ 016 mmol/L 145 ed volume] 08:40 in Serum or Plasma Potassi 4.5 3.5 - complet um 016 mmol/L 5.1 ed [Moles/ 08:40 volume] in Serum or Plasma Chlorid 96 98 - Low complet e 016 mmol/L 107 ed [Moles/ 08:40 volume] in Serum or Plasma Carbon 24 21 - 32 complet dioxide 016 mmol/L ed , total 08:40 [Moles/ volume] in Blood Anion 16 5 - 15 High complet gap in 016 mmol/L ed Serum 08:40 or Plasma Glucose 118 70 - complet 016 mg/dl 120 ed [Mass/v 08:40 olume] in Serum or Plasma Urea 19 7 - 18 High complet nitroge 016 mg/dl ed n 08:40 [Mass/v olume] in Serum or Plasma Creatin 1.6 0.6 - High complet ine 016 mg/dl 1.3 ed [Mass/v 08:40 olume] in Serum or Plasma AGE [age] yrs complet 016 ed 08:40 GFR 47 complet 016 ml/min ed 08:40 Calcium 8.0 8.5 - Low complet 016 mg/dl 10.1 ed [Mass/v 08:40 olume] in Serum or Plasma Urea 12 6 - 25 complet nitroge 016 ratio ed n/Creat 08:40 inine [Mass ratio] in Serum or Plasma Osmolal 266 272 - Low complet ity of 016 295 ed Unspeci 08:40 fied specime n CBC W DIFF AUTOMATED (07-30-2015 08:40) Leukocy 9.6 4.5 - complet lori 016 K/uL 11.5 ed [#/volu 08:40 me] in Blood by Automat ed count Erythro 4.01 4.60 - Low complet cytes 016 M/uL 6.00 ed [#/volu 08:40 me] in Blood by Automat ed count Hemoglo 12.4 14.0 - Low complet bin 016 g/dL 18.0 ed [Mass/v 08:40 olume] in Blood Hematoc 35 % 40 - 54 Low complet rit 016 ed [Volume 08:40 Fractio n] of Blood by Automat ed count Erythro 88.0 fL 80.0 - complet cyte 016 100 ed mean 08:40 corpusc ular volume [Entiti c volume] by Automat ed count Erythro 30.9 pg 26.0 - complet cyte 016 32.0 ed mean 08:40 corpusc ular hemoglo bin [Entiti c mass] by Automat ed count Erythro 35.1 32.0 - complet cyte 016 g/dL 36.0 ed mean 08:40 corpusc ular hemoglo bin concent ration [Mass/v olume] in Blood from Fetus by Automat ed count Erythro 14.6 % 11.5 - High complet cyte 016 14.5 ed distrib 08:40 ution width [Ratio] by Automat ed count Platele 107 150 - Low complet ts 016 K/uL 450 ed [#/volu 08:40 me] in Blood by Automat ed count Lymphoc 5.0 % 18.0 - Low complet ytes/10 016 42.0 ed 0 08:40 leukocy lori in Blood by Automat ed count Monocyt 8.3 % 2.0 - complet es/100 016 11.0 ed leukocy 08:40 lori in Blood by Automat ed count Neutrop 83.2 % 50.0 - High complet hils.ba 016 70.0 ed nd 08:40 form/10 0 leukocy lori in Blood by Manual count Eosinop 3.30 % 1.00 - High complet hils/10 016 3.00 ed 0 08:40 leukocy lori in Blood by Automat ed count Basophi 0.20 % 0.00 - complet ls/100 016 2.00 ed leukocy 08:40 lori in Blood by Automat ed count Lymphoc 0.48 0.60 - Low complet ytes/10 016 K/uL 3.40 ed 0 08:40 leukocy lori in Blood by Automat ed count Monocyt 0.79 0.00 - complet es/100 016 K/uL 0.90 ed leukocy 08:40 lori in Blood by Automat ed count Neutrop 7.95 2.00 - High complet hils.ba 016 K/uL 6.90 ed nd 08:40 form/10 0 leukocy lori in Blood by Manual count Eosinop 0.32 0.00 - complet hils/10 016 K/uL 0.70 ed 0 08:40 leukocy lori in Blood by Automat ed count Basophi 0.02 0.00 - complet ls/100 016 K/uL 0.20 ed leukocy 08:40 lori in Blood by Automat ed count Manual NOT complet differe 016 INDICAT ed ntial 08:40 ED perform ed [Presen ce] in Blood Hemoglobin [Presence] in Urine by Test strip (07-29-2015 18:15) Hemoglo NEGATIV complet bin 016 E ed [Presen 18:15 ce] in Urine by Test strip Bacteria identified in Urine by Culture (07-29-2015 05:38) Collect CLEAN complet ion 016 CATCH ed method 05:38 [Type] of Specime n STATUS PRELIMI complet 016 NARY ed 05:38 RESULT: NO complet 016 GROWTH ed 05:38 1ST DAY RESULTE CRW complet D BY 016 ed 05:38 SEND TO N complet ER 016 ed 05:38 STATUS FINAL complet 016 ed 05:38 RESULT: NO complet 016 GROWTH ed 05:38 2ND DAY RESULTE MDA complet D BY 016 ed 05:38 SEND Y complet PHARM/I 016 ed C 05:38 Urinalysis complete panel in Urine (07-29-2015 05:38) Color YELLOW NL: complet of 016 Negativ ed Urine 05:38 e Appeara SL NL: complet nce of 016 CLOUD Negativ ed Urine 05:38 e Glucose TRACE NL: complet 016 Negativ ed [Mass/v 05:38 e olume] in Urine by Test strip Bilirub NEG NL: complet in 016 Negativ ed [Presen 05:38 e ce] in Urine by Test strip Ketones NEG NL: complet 016 Negativ ed [Presen 05:38 e ce] in Serum or Plasma Specifi 1.025 NL: complet c 016 1.00 >= ed gravity 05:38 1.030 of Urine Hemoglo 1+ NL: Abnorma complet bin 016 Negativ l ed [Presen 05:38 e ce] in Urine by Test strip pH of 5.5 NL: complet Urine 016 ed by Test 05:38 strip Protein 1+ NL: Abnorma complet 016 Negativ l ed [Presen 05:38 e ce] in Urine by Test strip Urobili 0.2 NL: 0.2 complet nogen 016 - 1.0 ed [Mass/v 05:38 olume] in Urine by Test strip Nitrite NEG NL: complet 016 Negativ ed [Presen 05:38 e ce] in Urine by Test strip Leukocy NEG NL: complet lori 016 Negativ ed [#/volu 05:38 e me] in Blood by Automat ed count Leukocy 3 - 5 NL: Abnorma complet lori 016 NEGATIV l ed [#/volu 05:38 E me] in Blood by Automat ed count Erythro RARE NL: complet cytes 016 NEGATIV ed [#/volu 05:38 E me] in Blood by Automat ed count Epithel 3 - 5 NL: Abnorma complet ial 016 NEGATIV l ed cells 05:38 E [#/area ] in Urine sedimen t by Microsc opy high power field Bacteri 4+ NL: Abnorma complet a 016 NEGATIV l ed [#/area 05:38 E ] in Urine sedimen t by Microsc opy high power field Casts SEE NL: complet type 016 BELOW NEGATIV ed not 05:38 E specifi ed [Presen ce] in Urine by Compute r assiste d method Granula 10 - 20 Abnorma complet r casts 016 l ed 05:38 [Presen ce] in Urine sedimen t by Light microsc opy Additio C CATCH complet nal 016 ed comment 05:38 s RFC CULTURE C&S Abnorma complet SETUP 016 ORDER l ed 05:38 Thyrotropin [Units/volume] in Serum or Plasma by Detection limit <= 0.05 mIU/L (07-29-2015 05:30) Thyrotr 3.46 0.36 - complet opin 016 uIU/mL 3.74 ed [Units/ 05:30 volume] in Serum or Plasma by Detecti on limit <= 0.05 mIU/L Basic metabolic 2000 panel in Serum or Plasma (07-29-2015 05:30) Sodium 127 136 - Low complet [Moles/ 016 mmol/L 145 ed volume] 05:30 in Serum or Plasma Potassi 4.3 3.5 - complet um 016 mmol/L 5.1 ed [Moles/ 05:30 volume] in Serum or Plasma Chlorid 93 98 - Low complet e 016 mmol/L 107 ed [Moles/ 05:30 volume] in Serum or Plasma Carbon 24 21 - 32 complet dioxide 016 mmol/L ed , total 05:30 [Moles/ volume] in Blood Anion 14 5 - 15 complet gap in 016 mmol/L ed Serum 05:30 or Plasma Glucose 115 70 - complet 016 mg/dl 120 ed [Mass/v 05:30 olume] in Serum or Plasma Urea 23 7 - 18 High complet nitroge 016 mg/dl ed n 05:30 [Mass/v olume] in Serum or Plasma Creatin 1.8 0.6 - High complet ine 016 mg/dl 1.3 ed [Mass/v 05:30 olume] in Serum or Plasma AGE [age] yrs complet 016 ed 05:30 GFR 41 complet 016 ml/min ed 05:30 Calcium 7.6 8.5 - Low complet 016 mg/dl 10.1 ed [Mass/v 05:30 olume] in Serum or Plasma Urea 13 6 - 25 complet nitroge 016 ratio ed n/Creat 05:30 inine [Mass ratio] in Serum or Plasma Osmolal 260 272 - Low complet ity of 016 295 ed Unspeci 05:30 fied specime n CBC W DIFF AUTOMATED (07-29-2015 05:30) Leukocy 10.1 4.5 - complet lori 016 K/uL 11.5 ed [#/volu 05:30 me] in Blood by Automat ed count Erythro 3.19 4.60 - Low complet cytes 016 M/uL 6.00 ed [#/volu 05:30 me] in Blood by Automat ed count Hemoglo 9.9 14.0 - Low complet bin 016 g/dL 18.0 ed [Mass/v 05:30 olume] in Blood Hematoc 29 % 40 - 54 Low complet rit 016 ed [Volume 05:30 Fractio n] of Blood by Automat ed count Erythro 90.3 fL 80.0 - complet cyte 016 100 ed mean 05:30 corpusc ular volume [Entiti c volume] by Automat ed count Erythro 31.0 pg 26.0 - complet cyte 016 32.0 ed mean 05:30 corpusc ular hemoglo bin [Entiti c mass] by Automat ed count Erythro 34.4 32.0 - complet cyte 016 g/dL 36.0 ed mean 05:30 corpusc ular hemoglo bin concent ration [Mass/v olume] in Blood from Fetus by Automat ed count Erythro 13.7 % 11.5 - complet cyte 016 14.5 ed distrib 05:30 ution width [Ratio] by Automat ed count Platele 113 150 - Low complet ts 016 K/uL 450 ed [#/volu 05:30 me] in Blood by Automat ed count Lymphoc 4.1 % 18.0 - Low complet ytes/10 016 42.0 ed 0 05:30 leukocy lori in Blood by Automat ed count Monocyt 9.4 % 2.0 - complet es/100 016 11.0 ed leukocy 05:30 lori in Blood by Automat ed count Neutrop 84.7 % 50.0 - High complet hils.ba 016 70.0 ed nd 05:30 form/10 0 leukocy lori in Blood by Manual count Eosinop 1.60 % 1.00 - complet hils/10 016 3.00 ed 0 05:30 leukocy lori in Blood by Automat ed count Basophi 0.20 % 0.00 - complet ls/100 016 2.00 ed leukocy 05:30 lori in Blood by Automat ed count Lymphoc 0.41 0.60 - Low complet ytes/10 016 K/uL 3.40 ed 0 05:30 leukocy lori in Blood by Automat ed count Monocyt 0.95 0.00 - High complet es/100 016 K/uL 0.90 ed leukocy 05:30 lori in Blood by Automat ed count Neutrop 8.52 2.00 - High complet hils.ba 016 K/uL 6.90 ed nd 05:30 form/10 0 leukocy lori in Blood by Manual count Eosinop 0.16 0.00 - complet hils/10 016 K/uL 0.70 ed 0 05:30 leukocy lori in Blood by Automat ed count Basophi 0.02 0.00 - complet ls/100 016 K/uL 0.20 ed leukocy 05:30 lori in Blood by Automat ed count Manual NOT complet differe 016 INDICAT ed ntial 05:30 ED perform ed [Presen ce] in Blood Bacteria identified in Blood by Culture (07-27-2015 15:30) STATUS PRELIMI complet 016 NARY ed 15:30 RESULT NO complet 016 GROWTH ed 15:30 AT 1 DAY RESULTE LMM complet D BY 016 ed 15:30 SEND Y complet PHARM/I 016 ed C 15:30 STATUS FINAL complet 016 ed 15:30 RESULT NO complet 016 GROWTH ed 15:30 5 DAYS RESULTE DB complet D BY 016 ed 15:30 SEND TO N complet ER 016 ed 15:30 Bacteria identified in Sputum by Culture (07-27-2015 15:15) _CULTUR ORY complet E 016 ed RESPIRA 15:15 T Microbi SPUTUM complet ology 016 ed studies 15:15 (set) STATUS PRELIMI complet 016 NARY ed 15:15 RESULT: HEAVY complet 016 GROWTH ed 15:15 GRAM NEGATIV E RODS RESULT: MODERAT complet 016 E ed 15:15 GROWTH STAPH SPECIES RESULT: SCANT complet 016 GROWTH ed 15:15 MIX RESPIRA TORY AKILA SEND Y complet PHARM/I 016 ed C 15:15 STATUS FINAL complet 016 ed 15:15 RESULT: MODERAT complet 016 E ed 15:15 GROWTH STAPH AUREUS (MRSA) RESULT: SCANT complet 016 GROWTH ed 15:15 USUAL RESPIRA TORY AKILA RESULTE CRW complet D BY 016 ed 15:15 SEND TO N complet ER 016 ed 15:15 Microscopic observation [Identifier] in Sputum by Gram stain (07-27-2015 15:15) Additio YES complet nal 016 ed comment 15:15 s RFC Additio NO complet nal 016 ed comment 15:15 s RFC Bacteria identified in Blood by Culture (07-27-2015 14:43) STATUS PRELIMI complet 016 NARY ed 14:43 RESULT NO complet 016 GROWTH ed 14:43 AT 1 DAY RESULTE LMM complet D BY 016 ed 14:43 SEND Y complet PHARM/I 016 ed C 14:43 STATUS FINAL complet 016 ed 14:43 RESULT NO complet 016 GROWTH ed 14:43 5 DAYS RESULTE DB complet D BY 016 ed 14:43 SEND TO N complet ER 016 ed 14:43 Comprehensive metabolic 1998 panel in Serum or Plasma (07-27-2015 14:43) Sodium 129 136 - Low complet [Moles/ 016 mmol/L 145 ed volume] 14:43 in Serum or Plasma Potassi 4.1 3.5 - complet um 016 mmol/L 5.1 ed [Moles/ 14:43 volume] in Serum or Plasma Chlorid 92 98 - Low complet e 016 mmol/L 107 ed [Moles/ 14:43 volume] in Serum or Plasma Carbon 31 21 - 32 complet dioxide 016 mmol/L ed , total 14:43 [Moles/ volume] in Blood Anion 10 5 - 15 complet gap in 016 mmol/L ed Serum 14:43 or Plasma Glucose 124 70 - High complet 016 mg/dl 120 ed [Mass/v 14:43 olume] in Serum or Plasma Urea 18 7 - 18 complet nitroge 016 mg/dl ed n 14:43 [Mass/v olume] in Serum or Plasma Creatin 1.7 0.6 - High complet ine 016 mg/dl 1.3 ed [Mass/v 14:43 olume] in Serum or Plasma AGE [age] yrs complet 016 ed 14:43 GFR 44 complet 016 ml/min ed 14:43 Urea 11 6 - 25 complet nitroge 016 ratio ed n/Creat 14:43 inine [Mass ratio] in Serum or Plasma Osmolal 262 272 - Low complet ity of 016 295 ed Unspeci 14:43 fied specime n Calcium 8.0 8.5 - Low complet 016 mg/dl 10.1 ed [Mass/v 14:43 olume] in Serum or Plasma Bilirub 0.7 0.2 - complet in.tota 016 mg/dl 1.0 ed l 14:43 [Mass/v olume] in Serum or Plasma Asparta 3 IU/L 15 - 37 Low complet te 016 ed aminotr 14:43 ansfera se [Enzyma tic activit y/volum e] in Serum or Plasma Alanine 10 IU/L 12 - 78 Low complet 016 ed aminotr 14:43 ansfera se [Enzyma tic activit y/volum e] in Serum or Plasma Alkalin 62 IU/L 54 - complet e 016 369 ed phospha 14:43 tase [Enzyma tic activit y/volum e] in Serum or Plasma Protein 7.2 6.4 - complet 016 g/dl 8.2 ed [Mass/v 14:43 olume] in Serum or Plasma Albumin 3.3 3.4 - Low complet 016 g/dl 5.0 ed [Mass/v 14:43 olume] in Serum or Plasma Albumin 3.9 1.3 - High complet /Globul 016 g/dl 3.5 ed in 14:43 [Mass ratio] in Serum or Plasma Albumin 0.8 1.0 - Low complet /Globul 016 ratio 3.9 ed in 14:43 [Mass ratio] in Serum or Plasma CBC W DIFF AUTOMATED (07-27-2015 14:43) Leukocy 15.7 4.5 - High complet lori 016 K/uL 11.5 ed [#/volu 14:43 me] in Blood by Automat ed count Erythro 3.96 4.60 - Low complet cytes 016 M/uL 6.00 ed [#/volu 14:43 me] in Blood by Automat ed count Hemoglo 12.5 14.0 - Low complet bin 016 g/dL 18.0 ed [Mass/v 14:43 olume] in Blood Hematoc 36 % 40 - 54 Low complet rit 016 ed [Volume 14:43 Fractio n] of Blood by Automat ed count Erythro 90.4 fL 80.0 - complet cyte 016 100 ed mean 14:43 corpusc ular volume [Entiti c volume] by Automat ed count Erythro 31.6 pg 26.0 - complet cyte 016 32.0 ed mean 14:43 corpusc ular hemoglo bin [Entiti c mass] by Automat ed count Erythro 34.9 32.0 - complet cyte 016 g/dL 36.0 ed mean 14:43 corpusc ular hemoglo bin concent ration [Mass/v olume] in Blood from Fetus by Automat ed count Erythro 13.8 % 11.5 - complet cyte 016 14.5 ed distrib 14:43 ution width [Ratio] by Automat ed count Platele 138 150 - Low complet ts 016 K/uL 450 ed [#/volu 14:43 me] in Blood by Automat ed count Lymphoc 5.4 % 18.0 - Low complet ytes/10 016 42.0 ed 0 14:43 leukocy lori in Blood by Automat ed count Monocyt 9.2 % 2.0 - complet es/100 016 11.0 ed leukocy 14:43 lori in Blood by Automat ed count Neutrop 84.9 % 50.0 - High complet hils.ba 016 70.0 ed nd 14:43 form/10 0 leukocy lori in Blood by Manual count Eosinop 0.20 % 1.00 - Low complet hils/10 016 3.00 ed 0 14:43 leukocy lori in Blood by Automat ed count Basophi 0.30 % 0.00 - complet ls/100 016 2.00 ed leukocy 14:43 lori in Blood by Automat ed count Lymphoc 0.85 0.60 - complet ytes/10 016 K/uL 3.40 ed 0 14:43 leukocy lori in Blood by Automat ed count Monocyt 1.44 0.00 - High complet es/100 016 K/uL 0.90 ed leukocy 14:43 lori in Blood by Automat ed count Neutrop 13.30 2.00 - High complet hils.ba 016 K/uL 6.90 ed nd 14:43 form/10 0 leukocy lori in Blood by Manual count Eosinop 0.03 0.00 - complet hils/10 016 K/uL 0.70 ed 0 14:43 leukocy lori in Blood by Automat ed count Basophi 0.05 0.00 - complet ls/100 016 K/uL 0.20 ed leukocy 14:43 lori in Blood by Automat ed count Manual SEE complet differe 016 BELOW ed ntial 14:43 perform ed [Presen ce] in Blood Neutrop 79 % 40 - 75 High complet hils.se 016 ed gmented 14:43 [#/volu me] in Blood by Manual count BANDS 10 % 0 - 5 High complet 016 ed 14:43 Lymphoc 3 % 16 - 46 Low complet ytes/10 016 ed 0 14:43 leukocy lori in Blood Monocyt 8 % 0 - 12 complet es 016 ed [#/volu 14:43 me] in Blood Platele ADEQUAT complet ts 016 E ed [Presen 14:43 ce] in Blood by Light microsc opy Erythro NORMAL complet cyte 016 ed morphol 14:43 ogy finding [Identi fier] in Blood INFLUENZA A and B RAPID (07-27-2015 14:30) Influen NEGATIV complet za 016 E ed virus A 14:30 Ag [Presen ce] in Unspeci fied specime n Influen NEGATIV complet za 016 E ed virus B 14:30 Ag [Presen ce] in Unspeci fied specime n Basic metabolic 2000 panel in Serum or Plasma (03-08-2015 05:40) Sodium 133 136 - Low complet [Moles/ 015 mmol/L 145 ed volume] 05:40 in Serum or Plasma Potassi 4.9 3.5 - complet um 015 mmol/L 5.1 ed [Moles/ 05:40 volume] in Serum or Plasma Chlorid 97 98 - Low complet e 015 mmol/L 107 ed [Moles/ 05:40 volume] in Serum or Plasma Carbon 31 21 - 32 complet dioxide 015 mmol/L ed , total 05:40 [Moles/ volume] in Blood Anion 10 5 - 15 complet gap in 015 mmol/L ed Serum 05:40 or Plasma Glucose 184 70 - High complet 015 mg/dl 120 ed [Mass/v 05:40 olume] in Serum or Plasma Urea 24 7 - 18 High complet nitroge 015 mg/dl ed n 05:40 [Mass/v olume] in Serum or Plasma Creatin 1.4 0.6 - High complet ine 015 mg/dl 1.3 ed [Mass/v 05:40 olume] in Serum or Plasma AGE [birth year]2 60 yrs complet 015 ed 05:40 GFR 55 complet 015 ml/min ed 05:40 Calcium 9.0 8.5 - complet 015 mg/dl 10.1 ed [Mass/v 05:40 olume] in Serum or Plasma Urea 17 6 - 25 complet nitroge 015 ratio ed n/Creat 05:40 inine [Mass ratio] in Serum or Plasma Osmolal 275 272 - complet ity of 015 295 ed Unspeci 05:40 fied specime n CBC W DIFF AUTOMATED (03-08-2015 05:40) Leukocy 14.3 4.5 - High complet lori 015 K/uL 11.5 ed [#/volu 05:40 me] in Blood by Automat ed count Erythro 3.56 4.60 - Low complet cytes 015 M/uL 6.00 ed [#/volu 05:40 me] in Blood by Automat ed count Hemoglo 11.1 14.0 - Low complet bin 015 g/dL 18.0 ed [Mass/v 05:40 olume] in Blood Hematoc 33 % 40 - 54 Low complet rit 015 ed [Volume 05:40 Fractio n] of Blood by Automat ed count Erythro 91.3 fL 80.0 - complet cyte 015 100 ed mean 05:40 corpusc ular volume [Entiti c volume] by Automat ed count Erythro 31.2 pg 26.0 - complet cyte 015 32.0 ed mean 05:40 corpusc ular hemoglo bin [Entiti c mass] by Automat ed count Erythro 34.2 32.0 - complet cyte 015 g/dL 36.0 ed mean 05:40 corpusc ular hemoglo bin concent ration [Mass/v olume] in Blood from Fetus by Automat ed count Erythro 13.8 % 11.5 - complet cyte 015 14.5 ed distrib 05:40 ution width [Ratio] by Automat ed count Platele 164 150 - complet ts 015 K/uL 450 ed [#/volu 05:40 me] in Blood by Automat ed count Lymphoc 4.8 % 18.0 - Low complet ytes/10 015 42.0 ed 0 05:40 leukocy lori in Blood by Automat ed count Monocyt 4.7 % 2.0 - complet es/100 015 11.0 ed leukocy 05:40 lori in Blood by Automat ed count Neutrop 90.5 % 50.0 - High complet hils.ba 015 70.0 ed nd 05:40 form/10 0 leukocy lori in Blood by Manual count Eosinop 0.00 % 1.00 - Low complet hils/10 015 3.00 ed 0 05:40 leukocy lori in Blood by Automat ed count Basophi 0.00 % 0.00 - complet ls/100 015 2.00 ed leukocy 05:40 lori in Blood by Automat ed count Lymphoc 0.68 0.60 - complet ytes/10 015 K/uL 3.40 ed 0 05:40 leukocy lori in Blood by Automat ed count Monocyt 0.67 0.00 - complet es/100 015 K/uL 0.90 ed leukocy 05:40 lori in Blood by Automat ed count Neutrop 12.95 2.00 - High complet hils.ba 015 K/uL 6.90 ed nd 05:40 form/10 0 leukocy lori in Blood by Manual count Eosinop 0.00 0.00 - complet hils/10 015 K/uL 0.70 ed 0 05:40 leukocy lori in Blood by Automat ed count Basophi 0.00 0.00 - complet ls/100 015 K/uL 0.20 ed leukocy 05:40 lori in Blood by Automat ed count Manual SLIDE complet differe 015 SCAN-OK ed ntial 05:40 perform ed [Presen ce] in Blood Thyrotropin [Units/volume] in Serum or Plasma by Detection limit <= 0.05 mIU/L (03-08-2015 05:40) Thyrotr 0.86 0.36 - complet opin 015 uIU/mL 3.74 ed [Units/ 05:40 volume] in Serum or Plasma by Detecti on limit <= 0.05 mIU/L Urinalysis dipstick W Reflex Microscopic panel in Urine (03-07-2015 05:55) Color YELLOW NL: complet of 015 Negativ ed Urine 05:55 e Appeara CLEAR NL: complet nce of 015 Negativ ed Urine 05:55 e Glucose NEG NL: complet 015 Negativ ed [Mass/v 05:55 e olume] in Urine by Test strip Bilirub NEG NL: complet in 015 Negativ ed [Presen 05:55 e ce] in Urine by Test strip Ketones NEG NL: complet 015 Negativ ed [Presen 05:55 e ce] in Serum or Plasma Specifi 1.020 NL: complet c 015 1.00 >= ed gravity 05:55 1.030 of Urine Hemoglo NEG NL: complet bin 015 Negativ ed [Presen 05:55 e ce] in Urine by Test strip pH of 5.5 NL: complet Urine 015 ed by Test 05:55 strip Protein NEG NL: complet 015 Negativ ed [Presen 05:55 e ce] in Urine by Test strip Urobili 0.2 NL: 0.2 complet nogen 015 - 1.0 ed [Mass/v 05:55 olume] in Urine by Test strip Nitrite NEG NL: complet 015 Negativ ed [Presen 05:55 e ce] in Urine by Test strip Leukocy NEG NL: complet lori 015 Negativ ed [#/volu 05:55 e me] in Blood by Automat ed count Additio VOIDED complet nal 015 ed comment 05:55 s RFC CULTURE NOT complet SETUP 015 INDIC ed 05:55 Bacteria identified in Blood by Culture (03-06-2015 15:18) STATUS PRELIMI complet 015 NARY ed 15:18 RESULT NO complet 015 GROWTH ed 15:18 AT 1 DAY RESULTE MDA complet D BY 015 ed 15:18 SEND Y complet PHARM/I 015 ed C 15:18 STATUS FINAL complet 015 ed 15:18 RESULT NO complet 015 GROWTH ed 15:18 5 DAYS RESULTE CRW complet D BY 015 ed 15:18 SEND TO N complet ER 015 ed 15:18 Bacteria identified in Blood by Culture (03-06-2015 14:40) STATUS PRELIMI complet 015 NARY ed 14:40 RESULT NO complet 015 GROWTH ed 14:40 AT 1 DAY RESULTE MDA complet D BY 015 ed 14:40 SEND Y complet PHARM/I 015 ed C 14:40 STATUS FINAL complet 015 ed 14:40 RESULT NO complet 015 GROWTH ed 14:40 5 DAYS RESULTE CRW complet D BY 015 ed 14:40 SEND TO N complet ER 015 ed 14:40 Comprehensive metabolic 1998 panel in Serum or Plasma (03-06-2015 14:40) Sodium 135 136 - Low complet [Moles/ 015 mmol/L 145 ed volume] 14:40 in Serum or Plasma Potassi 4.3 3.5 - complet um 015 mmol/L 5.1 ed [Moles/ 14:40 volume] in Serum or Plasma Chlorid 97 98 - Low complet e 015 mmol/L 107 ed [Moles/ 14:40 volume] in Serum or Plasma Carbon 32 21 - 32 complet dioxide 015 mmol/L ed , total 14:40 [Moles/ volume] in Blood Anion 10 5 - 15 complet gap in 015 mmol/L ed Serum 14:40 or Plasma Glucose 118 70 - complet 015 mg/dl 120 ed [Mass/v 14:40 olume] in Serum or Plasma Urea 18 7 - 18 complet nitroge 015 mg/dl ed n 14:40 [Mass/v olume] in Serum or Plasma Creatin 1.7 0.6 - High complet ine 015 mg/dl 1.3 ed [Mass/v 14:40 olume] in Serum or Plasma AGE [age] yrs complet 015 ed 14:40 GFR 44 complet 015 ml/min ed 14:40 Urea 11 6 - 25 complet nitroge 015 ratio ed n/Creat 14:40 inine [Mass ratio] in Serum or Plasma Osmolal 273 272 - complet ity of 015 295 ed Unspeci 14:40 fied specime n Calcium 9.6 8.5 - complet 015 mg/dl 10.1 ed [Mass/v 14:40 olume] in Serum or Plasma Bilirub 0.5 0.2 - complet in.tota 015 mg/dl 1.0 ed l 14:40 [Mass/v olume] in Serum or Plasma Asparta 18 IU/L 15 - 37 complet te 015 ed aminotr 14:40 ansfera se [Enzyma tic activit y/volum e] in Serum or Plasma Alanine 18 IU/L 12 - 78 complet 015 ed aminotr 14:40 ansfera se [Enzyma tic activit y/volum e] in Serum or Plasma Alkalin 69 IU/L 54 - complet e 015 369 ed phospha 14:40 tase [Enzyma tic activit y/volum e] in Serum or Plasma Protein 7.7 6.4 - complet 015 g/dl 8.2 ed [Mass/v 14:40 olume] in Serum or Plasma Albumin 4.4 3.4 - complet 015 g/dl 5.0 ed [Mass/v 14:40 olume] in Serum or Plasma Albumin 3.3 1.3 - complet /Globul 015 g/dl 3.5 ed in 14:40 [Mass ratio] in Serum or Plasma Albumin 1.3 1.0 - complet /Globul 015 ratio 3.9 ed in 14:40 [Mass ratio] in Serum or Plasma CBC W DIFF AUTOMATED (03-06-2015 14:40) Leukocy 16.7 4.5 - High complet lori 015 K/uL 11.5 ed [#/volu 14:40 me] in Blood by Automat ed count Erythro 4.52 4.60 - Low complet cytes 015 M/uL 6.00 ed [#/volu 14:40 me] in Blood by Automat ed count Hemoglo 14.2 14.0 - complet bin 015 g/dL 18.0 ed [Mass/v 14:40 olume] in Blood Hematoc 41 % 40 - 54 complet rit 015 ed [Volume 14:40 Fractio n] of Blood by Automat ed count Erythro 90.7 fL 80.0 - complet cyte 015 100 ed mean 14:40 corpusc ular volume [Entiti c volume] by Automat ed count Erythro 31.4 pg 26.0 - complet cyte 015 32.0 ed mean 14:40 corpusc ular hemoglo bin [Entiti c mass] by Automat ed count Erythro 34.6 32.0 - complet cyte 015 g/dL 36.0 ed mean 14:40 corpusc ular hemoglo bin concent ration [Mass/v olume] in Blood from Fetus by Automat ed count Erythro 14.1 % 11.5 - complet cyte 015 14.5 ed distrib 14:40 ution width [Ratio] by Automat ed count Platele 190 150 - complet ts 015 K/uL 450 ed [#/volu 14:40 me] in Blood by Automat ed count Lymphoc 6.5 % 18.0 - Low complet ytes/10 015 42.0 ed 0 14:40 leukocy lori in Blood by Automat ed count Monocyt 8.1 % 2.0 - complet es/100 015 11.0 ed leukocy 14:40 lori in Blood by Automat ed count Neutrop 84.6 % 50.0 - High complet hils.ba 015 70.0 ed nd 14:40 form/10 0 leukocy lori in Blood by Manual count Eosinop 0.40 % 1.00 - Low complet hils/10 015 3.00 ed 0 14:40 leukocy lori in Blood by Automat ed count Basophi 0.40 % 0.00 - complet ls/100 015 2.00 ed leukocy 14:40 lori in Blood by Automat ed count Lymphoc 1.08 0.60 - complet ytes/10 015 K/uL 3.40 ed 0 14:40 leukocy lori in Blood by Automat ed count Monocyt 1.36 0.00 - High complet es/100 015 K/uL 0.90 ed leukocy 14:40 lori in Blood by Automat ed count Neutrop 14.13 2.00 - High complet hils.ba 015 K/uL 6.90 ed nd 14:40 form/10 0 leukocy lori in Blood by Manual count Eosinop 0.06 0.00 - complet hils/10 015 K/uL 0.70 ed 0 14:40 leukocy lori in Blood by Automat ed count Basophi 0.06 0.00 - complet ls/100 015 K/uL 0.20 ed leukocy 14:40 lori in Blood by Automat ed count Manual SEE complet differe 015 BELOW ed ntial 14:40 perform ed [Presen ce] in Blood Neutrop 53 % 40 - 75 complet hils.se 015 ed gmented 14:40 [#/volu me] in Blood by Manual count BANDS 30 % 0 - 5 High complet 015 ed 14:40 Lymphoc 10 % 16 - 46 Low complet ytes/10 015 ed 0 14:40 leukocy lori in Blood Monocyt 7 % 0 - 12 complet es 015 ed [#/volu 14:40 me] in Blood Platele ADEQUAT complet ts 015 E ed [Presen 14:40 ce] in Blood by Light microsc opy Erythro NORMAL complet cyte 015 ed morphol 14:40 ogy finding [Identi fier] in Blood Procedures Procedure DOS Code Location Performer Comment O2 CONC E1390 NAOMIE GORDON 7 HOME HOME 85%/>02 [facility]ICAL [facility] CON[facility] AT [facility] DR[facility] G0481 GOMEZ DYER DEFINITV [address] ID INC INC METH P DAY 8-14 DRUG CL DRUG TEST 77444 GOMEZ DYER PRSMV 7 [facility] QUAL DIR INC INC OPTICAL OBS PER DAY O2 CONC 1 E1390 NAOMIE [facility] HOME HOME 85%/>02 MEDICAL MEDICAL CONC AT EQUIPME EQUIPME PRS FLW RATE THER 70324 [facility] PROPH/DX [address] [place] [address] SEQL IV PUSH SBST/DRUG FAC OBSERVATI 58375 NIKITA TOBIN ON CARE 7 W N DISCHARGE [facility] G0378 [facility] OBSERVATI [address] [place] [address] HOSPITAL SERVICE PER HOUR INJECTION J0692 [facility] CEFEPIME [address] [place] [address] HYDROCHLO RIDE 500 MG INJECTION J1644 [facility] HEPARIN [address] [place] [address] PER 1000 UNITS INJ J2930 [facility] METHYLPRD [address] [place] [address] SODIUM SUCCNAT TO 125 MG INFUSION J7030 [facility] NORMAL [address] [place] [address] SOLUTION 1000 CC BASIC 03336 [facility] METABOLIC [address] [place] [address] CALCIUM TOTAL COLLECTIO 28130 [facility] N VENOUS [address] [place] [address] VENIPUNCT URE BLOOD 08971 [facility] COUNT [address] [place] [address] AUTO&AUTO DIFRNTL WBC THERAPEUT [address] TIC/DX INJECTION SUBQ/IM THERAPEUT [address] IV PUSH EACH NEW DRUG THER 51448 [facility] PROPH/DX [address] [place] [address] SEQL IV PUSH SBST/DRUG FAC THERAPEUT [address] TIC/[place]JECTION SUBQ/[place] [address] [facility] INFUSION [address] [place] [address] [place] [address] THERAPY/P [facility] ROPHYLAXI S /DX 1ST TO 1 HR ECG 57480 [facility] ROUTINE [address] [place] [address] HOSPITAL W/LEAST 12 LDS TRCG ONLY W/O I&[place] [address] [facility] TROPONIN [address] [place] [address] QUANTITAT [facility] [place] [address] [facility] MAGNESIUM [address] [place] [address] BLOOD 99832 [facility] COUNT [address] [place] [address] AUTO&AUTO DIFRNTL WBC CUL BACT 30111 [facility] XCPT [address] [place] [address] URINE [facility] BLOOD/STO OL AEROBIC ISOL SMR PRIM 06389 [facility] SRC [address] [place] [address] GRAM/GIEM [facility] SA STAIN BCT FUNGI/ROZINA L COLLECTIO 69542 [facility] N VENOUS [address] [place] [address] VENIPUNCT URE BASIC 34894 [facility] METABOLIC [address] [place] [address] CALCIUM TOTAL INJ J2930 [facility] [address] [place] [address] SODIUM SUCCNAT TO 125 MG INJECTION J1644 [facility] HEPARIN [address] [place] [address] HOSPITAL PER 1000 UNITS INJECTION J0692 [facility] CEFEPIME [address] [place] [address] HYDROCHLO RIDE 500 MG INFUSION J7030 [facility] NORMAL [address] [place] [address] SOLUTION 1000 CC INITIAL 98839 [facility] OBSERVATI 7 W N ON HOSPITALI CARE/DAY ST 50 MINUTES TOBACCO 53375 [facility] USE [address] [place] [address] INTENSIVE >10 MINUTES INJECTION J0692 [facility] CEFEPIME [address] [place] [address] HYDROCHLO RIDE 500 MG INJECTION J1956 [address] [facility] RENETTA 250 MG INJECTION J1644 [facility] HEPARIN [address] [place] [address] PER 1000 UNITS INJ J2930 [facility] METHYLPRD [address] [place] [address] SODIUM SUCCNAT TO 125 MG INFUSION J7030 [facility] NORMAL [address] [place] [address] SOLUTION 1000 CC COMPREHEN 60029 [facility] SIVE [address] [place] [address] PANEL URNLS DIP [address] [facility] HOSPITAL LET REAGENT AUTO MICROSCOP Y CORTISOL 21101 [facility] TOTAL [address] [place] [address] COLLECTIO 63861 [facility] N VENOUS [address] [place] [address] VENIPUNCT URE RADIOLOGI 21250 [facility] C EXAM [address] [place] [address] CHEST 2 [facility] VIEWS FRONTAL&L ATERAL CULTURE 07342 [facility] BACTERIAL [address] [place] [address] QUANTTATI VE COLONY COUNT URINE CULTURE 21213 [facility] BACTERIAL [address] [place] [address] AEROBIC W/ID ISOLATES BLOOD 25366 [facility] COUNT [address] [place] [address] AUTO&[place] [address] [facility] OSMOLALIT [address] [place] [address] BLOOD 68689 [facility] GASES ANY [address] [place] [address] COMBINATI ON PH PCO2 PO2 [place] [address] [facility] LACTATE [address] [place] [address] [place] [address] [facility] URINE [address] [place] [address] [place] [address] [facility] TROPONIN [address] [place] [address] [place] ECG 48733 [facility] ROUTINE [address] [place] [address] W/LEAST 12 LDS TRCG ONLY W/O I&R THERAPEUT 76287 [facility] IC [address] [place] [address] TIC/DX INJECTION SUBQ/IM ECG 55983 [facility] ROUTINE 7 DESIRE ECG EMERGENCY W/LEAST PHYS 12 LDS I&R ONLY PRESSURIZ 80624 [facility] ED/NONPRE [address] [place] [address] INHALATIO N TREATMENT DRUG TEST 71274 GOMEZ DYER PRSMV 7 [facility] QUAL DIR INC INC OPTICAL OBS PER DAY O2 CONC 1 E1390 NAOMIE [facility] 7 HOME HOME 85%/>02 MEDICAL MEDICAL CONC AT EQUIPME EQUIPME PRS FLW RATE DRUG TEST 72894 GOMEZ DYER PRSMV 7 MEM H[facility] MEM HOSP QUAL DIR INC INC OPTICAL OBS PER DAY PET 54146 [facility] IMAGING [address] CLINIC ATTENUATI ON WHOLE BODY FLUORODEO A9552 [facility] XYGLUCOSE 7 Y MEDICAL F-18 FDG CLINIC DX UP TO 45 MCI SBSQ 07741 [facility] 7 NE HEALTH CARE/DAY MEDICAL 35 G MINUTES INITIAL 02367 [facility] INPATIENT 7 NE [facility] CONSULT MEDICAL NEW/ESTAB G PT 80 MIN RADIOLOGI 45371 [facility] C EXAM 7 RADIOLOGY LD IV CHEST 2 VIEWS FRONTAL&[place] [address] [facility] STENT CRV 7 NE HEALTH CRTD ART MEDICAL EMBOLIC G PROTECJ ECG 08088 [facility] KATE ROUTINE 7 NE HEALTH ECG MEDICAL W/LEAST G 12 LDS I&R ONLY DUPLEX 61149 [facility] SCAN 7 EIDER EXTRACRAN RADIOLOGY IAL ART ASSOCIAT COMPL BI STUDY INITIAL 79597 [facility] YUE INPATIENT 7 NE [facility]ALTH CONSULT MEDICAL NEW/ESTAB G PT 80 MIN GROUND A0425 [facility] MILEAGE [address] [place] [address] PER AMBULANCE AMBULANCE STATUTE MILE AMB A0427 [facility] SERVICE [address] [place] [address] ALS AMBULANCE AMBULANCE EMERGENCY TRANSPORT LEVEL 1 ECG 53867 [facility] ROUTINE 7 DESIRE ECG EMERGENCY W/LEAST PHYS 12 LDS I&[place] [address] [facility] HEAD/BRAI 7 EIDER N W/O RADIOLOGY CONTRAST ASSOCIAT MATERIAL RADIOLOGI 02097 [facility] C EXAM 7 EIDER CHEST 2 RADIOLOGY VIEWS ASSOCIAT FRONTAL&[place] [address] [facility] ABDOMEN & 7 EIDER PELVIS RADIOLOGY W/O ASSOCIAT CONTRAST MATERIAL O2 CONC 1 E1390 NAOMIE GORDON 7 HOME HOME 85%/>02 MEDICAL MEDICAL CONC AT EQUIPME EQUIPME PRSC FLW RATE LOCM Q9967 [facility] 300-399 7 [facility] MG/ML HOSPITAL HOSPITAL IODINE CONCENTRA TION PER ML CT SOFT 28622 [place] [facility] TISSUE 7 [facility] NECK [facility] HOSPITAL W/[place] [address] [facility] ABDOMEN & 7 [facility] PELVIS [facility] HOSPITAL W/CONTRAS T MATERIAL [address] THORAX [address] W/[facility] HOSPITAL T MATERIAL LOCM Q9967 [facility] 300-399 7 [facility] MG/ML HOSPITAL HOSPITAL IODINE CONCENTRA TION PER ML ADMN SET A7005 NAOMIE AKBAR W/SM VOL 7 HOME HOME NONFILTR MEDICAL MEDICAL NEBULIZR EQUIPME EQUIPME NON-DISPB L DRUG TEST G0481 GOMEZ DYER DEFINITV [address] ID INC INC METH P DAY 8-14 DRUG CL DRUG TEST 93967 GOMEZ DYER PRSMV 7 [facility] QUAL DIR INC INC OPTICAL OBS PER DAY COMPREHEN 30681 [facility] SIVE 7 DARRYL DARRYL METABOLIC [employer] PANEL LACTATE 57014 [facility] D[facility] DEHYDROGE 7 DARRYL DARRYL NASE LDH [employer] BLOOD 37066 [facility] COUNT 7 DARRYL DARRYL COMPLETE [employer] AUTO&AUTO DIFRNTL WBC O2 CONC 1 E1390 NAOMIE [facility] [place] 7 HOME HOME 85%/>02 MEDICAL MEDICAL CONC AT EQUIPME EQUIPME PRSC FLW RATE DRUG TEST G0480 GOMEZ PINZONON DEFINITV [address] ID INC INC METH P DAY 1-7 DRUG CL DRUG TEST G0481 GOMEZ DYER DEFINITV [address] ID INC INC METH P DAY 8-14 DRUG CL DRUG TEST 62004 GOMEZ DYER PRSMV 7 MEM H[facility]P [facility] H[facility] QUAL DIR INC INC OPTICAL OBS PER DAY RADEX 68442 [facility] HAND [address] [place] [address] HOSPITAL VIEWS REPAIR 90506 CURRIETAMI CURRIE INTERMEDI [address] [place] [address] N/H/F/XTR NL GENT 2.6-7.5 CM TDAP 34080 [facility] VACCINE [address] [place] [address] YRS/> IM HOSPITAL [facility] DEBRIDEME 13372 [facility] NT OPEN 7 DESIRE WOUND 20 EMERGENCY SQ CM/< PHYS O2 CONC 1 E1390 NAOMIE GORDON 7 HOME HOME 85%/>02 MEDICAL MEDICAL CONC AT EQUIPME EQUIPME PRSC FLW RATE INFUSION J7030 [facility] NORMAL [address] [place] [address] SOLUTION 1000 CC INJECTION J[address] [facility] PER 1 MG DRUG TEST G0480 [facility] DEFINITV [address] [place] [address] METH P DAY 1-7 DRUG CL IAADIADOO [address] INFLUENZA [facility] CULTURE 02221 [facility] BACTERIAL [address] [place] [address] AEROBIC W/[place] [address] [facility] LIPASE [address] [place] [address] [place] [address] [facility] LACTATE [address] [place] [address] [place] [address] [facility] MAGNESIUM [address] [place] [address] [place] [address] [facility] FREE [address] [place] [address] [place] [address] [facility] TROPONIN [address] [place] [address] [place] ECG 48802 [facility] ROUTINE 7 DESIRE ECG EMERGENCY W/LEAST PHYS 12 LDS I&R ONLY THER 54732 [facility] PROPH/DX [address] [place] [address] HOSPITAL PUSH SINGLE/1S T SBST/[place] [address] [facility] INFUSION [address] [place] [address] HYDRATION [facility] EACH ADDITIONA L HOUR ECG 86811 [facility] ROUTINE [address] [place] [address] W/LEAST 12 LDS TRCG ONLY W/O I&R COLLECTIO 53948 [facility] N VENOUS [address] [place] [address] [place] [address] [facility] HEAD/BRAI [address] [place] [address] W/O [facility]OSPITAL CONTRAST MATERIAL RADIOLOGI 84881 [facility] C EXAM [address] [place] [address] CHEST 2 [facility] VIEWS FRONTAL&L ATERAL DRUG TEST 69713 [facility] PRSMV 7 [facility] CHEMISTRY ANALYZERS URNLS DIP [address]/TAB [facility] HOSPITAL LET REAGENT AUTO MICROSCOP Y GENERAL 52622 [facility] HEALTH [address] [place] [address] DRUG 18081 GOMEZ DYER SCREENING 7 [facility] OPIOIDS INC INC & OPIATE ANALOGS 5/MORE DRUG TEST 19969 GOMEZ DYER PRSMV 7 [facility] QUAL DIR INC INC OPTICAL [place] NJX 00737 NEIDA DUFF DX/THER 7 MD SUNNY, AGT PVRT PSC FACET JT LMBR/SAC 1 LEVEL NJX 24524 NEIDA DUFF DX/THER 7 MD SUNNY, AGT PVRT PSC FACET JT LMBR/SAC 2ND LEVEL O2 CONC 1 E1390 NAOMIE [facility] 7 HOME HOME 85%/>02 MEDICAL MEDICAL CONC AT EQUIPME EQUIPME PRSC FLW RATE DRUG TEST 85856 GOMEZ DYER PRSMV 7 [facility] QUAL DIR INC INC OPTICAL OBS PER DAY CYANOCOBA 39043 GOMEZ DYER JENNY 7 [facility] VITAMIN INC INC B-12 PPSV23 53109 [facility] FRANCISCO VACCINE 2 7 PHYSICIAN YRS OR S GROUP OLDER FOR SUBQ/IM USE DRUG TEST 35804 GOMEZ DYER PRSMV 7 [facility] QUAL DIR INC INC OPTICAL OBS PER DAY DRUG TEST G0480 GOMEZ DYER DEFINITV [address] ID INC INC METH P DAY 1-7 DRUG CL DRUG TEST G0481 GOMEZ DYER DEFINITV [address] ID INC INC METH P DAY 8-14 DRUG CL COMPREHEN 46961 [facility] SIVE 7 DARRYL DARRYL METABOLIC [facility] PANEL BLOOD 60389 [facility] COUNT 7 DARRYL DARRYL COMPLETE [facility] HOLD[facility] AUTO&[place] [address] [facility] BLOOD/URI 7 DARRYL DARRYL C ACID [facility] HOLDINGS LACTATE 85848 [facility] DEHYDROGE 7 [facility] [place] [address] [facility] MAGNESIUM 7 [facility] DRUG TST G0477 GOMEZ DYER [...] AT EQUIPME EQUIPME PRSC FLW RATE DRUG TST G0477 GOMEZ DYER PRESUMP;C 6 [facility] PBL BEING INC INC READ DC OPT OBV ONLY HOS BED E0260 NAOMIE NAOMIE SEMI-ELEC 6 HOME HOME W/ANY MEDICAL MEDICAL TYPE SIDE EQUIPME EQUIPME RAIL W/MATTRSS O2 CONC 1 E1390 NAOMIE NAOMIE DEL PORT 6 HOME HOME 85%/>02 MEDICAL MEDICAL CONC AT EQUIPME EQUIPME PRSC FLW RATE DRUG TST G0477 GOMEZ DYER [...] CONC AT EQUIPME EQUIPME PRSC FLW RATE MOTION 30639 KUSH CURRIE FLUOR [address] [place] [address] SWLNG FUNJ C/V REC SWALLOWIN 48565 KUSH Benson FUNJ [address] [place] [address]/[facility] IOGRAPY/V IDRADIOG ADMN SET A7005 NAOMIE AKBAR W/SM VOL 6 HOME HOME NONFILTR MEDICAL MEDICAL NEBULIZR EQUIPME EQUIPME NON-DISPB L COLLECTIO 99171 SHERMAN Perera VENOUS 6 Y MEDICAL [facility] [place] [address] [facility] ERYTHROPO 6 [facility] [place] [address] [facility] D[facility] FERRITIN 6 DARRYL DARRYL [facility] CYANOCOBA 49138 [facility] JENNY 6 DARRYL DARR[facility] VITAMIN HOLD[place] B-[address] [place] [address] [facility] D[facility] FOLIC 6 DARRYL DARRYL [place] [address] [facility] D[facility] IRON 6 DARRYL DARRYL [facility] NONINVASI 05691 SHERMAN MANZANARES VE 6 Y MEDICAL [facility] EAR/PULSE CLINIC OXIMETRY SINGLE DETER LACTATE 02899 [facility] DEHYDROGE 6 DARRYL DARRYL [place] [address] [facility] D[facility] [id number] 6 DARRYL DARRYL SFERRIN HOLDINGS HOLDINGS BLOOD 58830 [facility] COUNT 6 DARRYL DARRYL COMPLETE HOLDINGS HOLDINGS AUTO&AUTO DIFRNTL WBC BLOOD 80603 [facility] COUNT 6 DARRYL DARRYL RETICULOC [place] [address] KUSH CURRIE SWALLOWIN [address] [place] [address] DYSFUNCTI ON&/ORAL FUNCJ FEEDING INTERROGA 34058 [facility] MAT EVALUATIO S GROUP N IN PERSON ILR SYSTEM ECG 35797 GOMEZ DYER ROUTINE 6 [facility] ECG INC INC W/LEAST 12 LDS TRCG ONLY W/O I&[place] [address] [facility] SWALLOWIN [address] [place] [address] DYSFUNCTI ON&/ORAL FUNCJ FEEDING HOS BED E0260 NAOMIE AKBAR SEMI-ELEC 6 HOME HOME W/ANY MEDICAL MEDICAL TYPE SIDE EQUIPME EQUIPME RAIL W/MATTRSS O2 CONC 1 E1390 NAOMIE AKBAR DEL PORT 6 HOME HOME 85%/>02 MEDICAL MEDICAL CONC AT EQUIPME EQUIPME PRSC FLW RATE PRESCRIPT J8499 [facility] ION DRUG [address] [place] [address] NONCHEMOT HERAPEUTI C NOS PRESSURIZ 50909 [facility] ED/NONPRE [address] [place] [address] [place] [address] [facility] IRON [address] [place] [address] IRON 67006 [facility] BINDING [address] [place] [address] [place] [address] [facility] FOLIC [address] [place] [address] SERUM CYANOCOBA 81255 [facility] JENNY [address] [place] [address] B-12 [place] [address] [facility] FERRITIN [address] [place] [address] BASIC 13850 [facility] METABOLIC [address] [place] [address] CALCIUM TOTAL GENERAL 65790 [facility] HEALTH [address] [place] [address] [place] [address] [facility] LACTATE [address] [place] [address] CREATINE 76100 [facility] KINASE [address] [place] [address] HOSPITAL COLLECTIO 52588 [facility] N VENOUS [address] [place] [address] [place] [address] [facility] HEAD/BRAI [address] [place] [address] W/O [facility] [place] [address] [facility] INFUSION [address] [place] [address] INITIAL 31 MIN-1 [place] [address] [facility] INFUSION [address] [place] [address] HOSPITAL EACH ADDITIONA L HOUR ECG 68459 [facility] ROUTINE 6 DESIRE PHI ECG EMERGENCY W/LEAST PHYS 12 LDS I&R ONLY ECG 57329 [facility] ROUTINE [address] [place] [address] HOSPITAL W/LEAST 12 LDS TRCG ONLY W/O I&[place] [address] [facility] TROPONIN [address] [place] [address] [place] [address] [place] MAGNESIUM [address] [place] [address] [place] [address] [place] FREE [address] [place] [address] INFUSION J7030 [place] [facility] NORMAL [address] [place] [address] HOSPITAL SOLUTION 1000 CC HOSPITAL G0378 [place] OBSERVATI [address] [place] [address] HOSPITAL SERVICE PER HOUR CRITICAL 07758 [facility] CARE 6 DESIRE PHI ILL/INJUR EMERGENCY ED PHYS PATIENT INIT 30-[place] [address] [facility] [address] DYSFUNCTI ON&/[place] [address] [facility] [address] DYSFUNCTI ON&/[place] [address] DYSFUNCTI ON&/[place] [address] [facility] ROSALEE[address] DYSFUNCTI ON&/[place] [address] [facility] [address] [facility] DYSFUNCTI ON&[place] [address] [facility] [address] [facility] DYSFUNCTI ON&/ORAL FUNCJ FEEDING RADIOLOGI 46432 PATRICIA OPAL C 6 MEDICAL EXAMINATI IMAGING ON EYE ASS DETECT FOREIGN BODY 3D 97034 PATRICIA FARIAS RENDERING 6 MEDICAL DEMARCUS W/INTERP IMAGING & ASS POSTPROCE SS SUPERVISI ON MRI 91047 PATRICIA FARIAS SPINAL 6 MEDICAL DEMARCUS CANAL IMAGING LUMBAR ASS W/O CONTRAST MATERIAL ECG 27338 GOMEZ DYER ROUTINE 6 [facility] ECG INC INC W/LEAST 12 LDS TRCG ONLY W/O I&[place] [address] [facility] DYSFUNCTI ON&/ORAL FUNCJ FEEDING PET 09427 [facility] IMAGING 6 Y MEDICAL [facility] FOR CT CLINIC ATTENUATI ON WHOLE BODY FLUORODEO A9552 [facility] XYGLUCOSE 6 Y [facility]ICAL [facility] F-18 FDG CLINIC DX UP [place] 45 [place] [address] [facility] DYSFUNCTI ON&/ORAL FUNCJ FEEDING HOS BED E0260 NAOMIE AKBAR SEMI-ELEC 6 HOME HOME W/ANY MEDICAL MEDICAL TYPE SIDE EQUIPME EQUIPME RAIL W/MATTRSS O2 CONC 1 E1390 NAOMIE AKBAR DEL PORT 6 HOME HOME 85%/>02 MEDICAL MEDICAL CONC AT [place] [address] [facility] DYSFUNCTI ON&/[place] [address] [facility] DYSFUNCTI ON&/ORAL FUNCJ FEEDING BLOOD 92543 [facility] D[facility] COUNT 6 DARRYL DARRYL COMPLETE HOLDINGS HOLDINGS AUTO&AUTO DIFRNTL WBC LACTATE 83308 [facility] DEHYDROGE 6 DARRYL DARRYL NASE [facility] HOLDINGS COMPREHEN 11669 [facility] D[facility] SIVE 6 DARRYL DARRYL METAB[place] [address] KUSH GABRIEL 6 [facility] DYSFUNCTI ON&/[place] [address] [facility] DYSFUNCTI ON&/[place] [address] [address]ABRIEL [address] [place] [address] HOSPITAL DYSFUNCTI ON&/ORAL FUNCJ FEEDING DRUG TST G0477 GOMEZ DYER PRESUMP;C 6 [facility] PBL BEING INC INC READ DC OPT OBV ONLY DRUG TEST G0481 GOMEZ DYER DEFINITV 6 MEM [facility] HOSP DR ID INC INC METH P DAY 8-[place] [address] [address] [place] [address] DYSFUNCTI ON&/[place] [address] [address] [place] [address] DYSFUNCTI ON&/[place] [address] [address] [place] [address] DYSFUNCTI ON&[place] [address] [address] [place] [address] DYSFUNCTI ON&/ORAL FUNCJ FEEDING DUPLEX 52043 GOMEZ DYER SCAN 6 [facility] HOSP EXTRACRAN INC INC IAL ART COMPL BI STUDY HOS BED E0260 NAOMIE NAOMIE SEMI-ELEC 6 HOME HOME W/ANY MEDICAL MEDICAL TYPE SIDE EQUIPME EQUIPME RAIL W/MATTRSS O2 CONC 1 E1390 NAOMIEAN AKBAR DEL [place] 6 HOME HOME 85%/>02 MEDICAL MEDICAL CONC AT EQUIPME EQUIPME PRS FLW RATE INTERROGA 43086 [facility] TION 6 PHYSICIAN MAT EVALUATIO S GROUP N IN PERSON ILR SYSTEM ECG 91768 GOMEZ DYER ROUTINE 6 [facility] ECG INC INC W/LEAST 12 LDS TRCG ONLY W/O I&R HOS BED E0260 NAOMIE AKBAR SEMI-ELEC 6 HOME HOME W/ANY MEDICAL MEDICAL TYPE SIDE EQUIPME EQUIPME RAIL W/MATTRSS O2 CONC 1 E1390 NAOMIE ARTEAGARELL DEL [place] 6 HOME HOME 85%/>02 MEDICAL MEDICAL CONC AT EQUIPME EQUIPME PRSC FLW RATE DIRECT G[address] [facility] SNS RN 6 MEDICAL MEDICAL HOME [facility]/ MORNING SHOW NEWSCAST PRODUCER MORNING SHOW NEWSCAST PRODUCER SPICE SET EA 15 MIN LACTATE 10950 [facility] D[facility] DEHYDROGE 6 DARRYL DARRYL NASE [facility] HOLDINGS BLOOD 35126 [facility] DIEGO COUNT 6 DARRYL DARRYL COMPLETE HOLDINGS HOLDINGS AUTO&AUTO DIFRNTL WBC COMPREHEN 42420 [facility] D[facility] SIVE 6 [facility] METABOLIC HOLDINGS HOLDINGS PANEL DIRECT G0299 ST EDENILSON CASTELLANO RN 6 [facility] HOME [facility] MORNING SHOW NEWSCAST PRODUCER MORNING SHOW NEWSCAST PRODUCER SPICE SET EA [address] EDENIL[facility] CASTELLANO RN 6 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 F B4152 INFUSION INFUSION NUTRITION 6 PARTNERS PARTNERS CMPL VASQUEZ OF OF DENSE [place] INTACT NUTRNTS INTERROGA 88345 [facility] BRITANY TION 6 PHYSICIAN MAT EVALUATIO S GROUP N IN PERSON ILR SYSTEM HOS BED E0260 NAOMIE AKBAR SEMI-ELEC 6 HOME HOME W/ANY MEDICAL MEDICAL TYPE SIDE EQUIPME EQUIPME RAIL W/MATTRSS DIRECT G0299 ST EDENILSON CASTELLANO RN 6 [facility] HOME [facility] M[facility] SHOW NEWSCAST PRODUCER SPICE SET EA 15 MIN O2 CONC 1 E1390 NAOMIE AKBAR DEL [place] 6 HOME HOME 85%/>02 MEDICAL MEDICAL CONC AT EQUIPME EQUIPME PRSC FLW RATE DIRECT G0299 ST EDENILSON CASTELLANO RN 6 [facility] MORNING SHOW NEWSCAST PRODUCER MORNING SHOW NEWSCAST PRODUCER SPICE SET EA 15 MIN BLOOD 55512 GOMEZ DYER COUNT 6 [facility] COMPLETE INC INC AUTO&AUTO DIFRNTL WBC BASIC 29123 GOMEZ DYER METABOLIC 6 [facility] PANEL INC INC CALCIUM TOTAL RADIOLOGI 76192 PATRICIA Jimenez MEDICAL DEMARCUS EXAMINATI IMAGING ON CHEST ASS SINGLE VIEW FRONTAL COLLECTIO 44287 GOMEZ DYER N VENOUS 6 MEM HOS[facility] HOSP BLOOD INC INC VENIPUNCT URE DIRECT G0299 ST EDENILSON CASTELLANO RN 6 [facility] MORNING SHOW NEWSCAST PRODUCER MORNING SHOW NEWSCAST PRODUCER SPICE SET EA 15 MIN SBSQ 37254 [facility] 6 MEDICAL CARE/DAY SERV 25 FOUNDATIO MINUTES N ADDITIVE B4104 INFUSION INFUSION FOR 6 PARTNERS PARTNERS ENTERAL OF OF FORMULA [place] ENTRAL F B4152 INFUSION INFUSION NUTRITION 6 PARTNERS PARTNERS CMPL VASQUEZ OF OF DENSE [place] INTACT NUTRNTS HOME [place]; S9341 INFUSION INFUSION ENTERAL 6 PARTNERS PARTNERS NUTRITION OF OF VIA [place] GRAVITY; [place] [address] TIFFANIE BRANDEE RETROPERI 6 MEDICAL ADR TONEAL SERV REAL TIME FOUNDATIO W/IMAGE N COMPLETE RADIOLOGI 33190 TIFFANIE OCONNELL HENRIK C 6 MEDICAL EXAMINATI SERV ON CHEST FOUNDATIO SINGLE N VIEW FRONTAL THORACENT 89295 TIFFANIE RAISSI ESIS 6 MEDICAL DRI NEEDLE/CA SERV TH PLEURA FOUNDATIO N W/IMAGING CYTP 44203 [facility] SLCTV 6 Y OF ОЛЕГ CELL [place] [facility] NT INTERPJ XCPT C/[place] [address] [facility] SURG 6 Y OF ОЛЕГ PATHOLOGY [place] [facility] GROSS&KAMILA ROSCOPIC EXAM SBSQ 18269 [facility] 6 MEDICAL OS CARE/DAY SERV 25 FOUNDATIO MINUTES N SBSQ 93317 [facility] 6 MEDICAL OS CARE/DAY SERV 25 FOUNDATIO MINUTES N SBSQ 36195 [facility] 6 MEDICAL OS ROZINA CARE/DAY SERV 25 FOUNDATIO MINUTES N SBSQ 47112 [place] [address] MEDICAL OS ROZINA CARE/DAY SERV 25 FOUNDATIO MINUTES N INITIAL 620[address] [facility] 6 DESIRE A RIVAS CARE/DAY PHYSICIAN 70 SERVI MINUTES SWALLOWIN 97225 TIFFANIE LUGO 6 MEDICAL SCO W/CINERAD SERV IOGRAPY/V FOUNDATIO IDRADIOG N RADIOLOGI 66360 [facility] ALL C EXAM 6 MEDICAL CHEST 2 IMAGING VIEWS ASS FRONTAL&L ATERAL CT THORAX 37200 [place] [facility] 6 MEDICAL W/CONTRAS IMAGING T ASS MATERIAL ECG 14046 [place] ROUTINE 6 MEDICAL NAN ECG SERV W/LEAST FOUNDATIO 12 LDS N I&R ONLY HOSPITAL 58168 [facility] 6 DESIRE IRM DAY PHYSICIAN MANAGEMEN SERVI T > 30 MIN SBSQ 64963 [facility] 6 DESIRE IRM CARE/DAY PHYSICIAN 25 SERVI MINUTES SBSQ 35828 [facility] 6 DESIRE IRM CARE/DAY PHYSICIAN 25 SERVI MINUTES SBSQ 12862 [facility] 6 DESIRE IRM CARE/DAY PHYSICIAN 25 SERVI MINUTES INITIAL 21441 [facility] 6 DESIRE IRM CARE/DAY PHYSICIAN 70 SERVI MINUTES O2 CONC 1 E1390 [facility] 6 HOME HOME 85%/>02 MEDICAL MEDICAL CONC AT EQUIPME EQUIPAR PRS FLW RATE DRUG TST G0477 GOMEZ DYER PRESUMP;C 6 MEM [facility] PBL BEING INC INC READ DC OPT OBV ONLY O2 CONC 1 E1390 [place]IE [place] [address] HOME HOME 85%/>02 MEDICAL MEDICAL CONC AT [...] DRUG CL O2 CONC 1 E1390 [place]IE [place] [address] HOME HOME 85%/>02 MEDICAL MEDICAL CONC AT EQUIPME EQUIPME PRS FLW RATE DRUG TST G0477 GOMEZ DYER PRESUMP;C 6 MEM [facility]OS[facility] MEM [facility]OS[facility] PBL BEING INC INC READ DC OPT OBV ONLY INTERROGA 72118 [facility] TION 5 CULAR MAT EVALUATIO CONSULTAN N IN TS O PERSON ILR SYSTEM INTERROGA 35433 [facility] TION 5 CULAR MAT EVALUATIO CONSULTAN N IN TS O PERSON ILR SYSTEM O2 CONC 1 E1390 NAOMIE [facility]AST. [facility] 5 HOME HOME 85%/>02 MEDICAL [facility]ICAL [facility] FLW RATE ECG 30389 C[facility]OV[facility] BRITANY ROUTINE 5 CULAR MAT ECG CONSULTAN W/LEAST TS O 12 LDS I&R ONLY ECG 46671 GOMEZ DYER ROUTINE 5 [facility] ECG INC INC W/LEAST 12 LDS TRCG ONLY W/O I&R INTERROGA 49671 [facility]IOV[facility] BRITANY TION 5 CULAR MAT EVALUATIO CONSULTAN N IN TS O PERSON ILR SYSTEM O2 CONC 1 E1390 NOAMIE ARTEAGAST. [facility] 5 HOME HOME 85%/>02 MEDICAL MEDICAL CONC AT EQUIPME [facility] FLW RATE INJECTION J0696 GOMEZ HICKMAN 5 [facility] NE SODIUM PER 250 MG THERAPEUT 66400 GOMEZ HICKMAN IC 5 [facility] TIC/DX INJECTION SUBQ/ HOSPITAL 16687 [facility] 5 DESIRE DAY PHYSICIAN MANAGEMEN SERVI T > 30 MIN SBSQ 58365 [facility] 5 Y MEDICAL [facility] CARE/DAY CLINIC 35 MINUTES SBSQ [address] CARE/DAY PHYSICIAN 25 SERVI MINUTES INITIAL 44031 [facility] CARE/DAY PHYSICIAN 30 SERVI MINUTES INITIAL 00118 [facility] 5 Y MEDICAL [facility] CARE/DAY CLINIC 70 MINUTES RADIOLOGI 96396 [facility] EXAM 5 NGOZI CHEST 2 RADIOLOGY VIEWS ASSOCIAT FRONTAL&L ATERAL INTERROGA 50854 [facility] BRITANY TION 5 CULAR MAT EVALUATIO CONSULTAN N IN TS O PERSON ILR SYSTEM ECG 68664 [facility] BRIT[facility] ROUTINE 5 CULAR MAT ECG CONSULTAN W/LEAST TS O 12 LDS I&R ONLY ECG 27847 GOMEZ DYER ROUTINE 5 [facility] ECG INC INC W/LEAST 12 LDS TRCG ONLY W/O I&R O2 CONC 1 E1390 NAOMIE GORDON 5 HOME HOME 85%/>02 MEDICAL MEDICAL CONC AT EQUIPME EQUIPKIT [facility] FLW RATE LOCM Q9967 GOMEZ DYER 300-399 5 MEM HOS[facility]OS[facility] MG/ML INC INC IOD[place] [address] GOMEZ DYER UREA 5 [facility] NITROGEN INC INC QUANTITAT [place] COLLECTIO 04848 GOMEZ DYER N VENOUS 5 [facility] BLOOD INC INC VENIPUNCT URE CT SOFT 48773 [place] [facility] ALL TISSUE 5 MEDICAL NECK W/O IMAGING & [place] W/[place] [address] GOMEZ DYER ANGIOGRAP 5 [facility] HY NECK INC INC W/CONTRAS T/NONCONT RAST CREATININ 50032 GOMEZ DYER E BLOOD 5 [facility]OS[facility] INC INC PET 39876 [facility] IMAGING 5 Y MEDICAL [facility] FOR CT CLINIC ATTENUATI ON WHOLE BODY FLUORODEO A9552 [facility] XYGLUCOSE 5 Y MEDICAL [facility] F-18 FDG CLINIC DX UP TO [address] THORAX 60233 [facility] W/O & 5 REGIONAL GLE W/CONTRAS MEDICAL T BELKIS MATERIAL CT SOFT 42906 [facility] TISSUE 5 REGIONAL GLE NECK W/O MEDICAL & [place] [address] [facility] LAUR[facility] HEAD/BRAI 5 REGIONAL GLE N W/O & MEDICAL W/CONTRAS BELKIS T MATERIAL GENERAL 10690 [facility] HEALTH 5 DARRYL DARRYL [place] [address] LAB D[facility] D[facility] FOLIC 5 DARRYL DARRYL ACID HOLDINGS HOLDINGS SERUM CYANOCOBA 73318 [facility] JENNY 5 DARRYL DARRYL VITAMIN HOLDINGS HOLDINGS B-12 LACTATE 52871 [facility]IE[facility] DIEGO DEHYDROGE 5 DARRYL DARRYL NASE LDH HOLDINGS HOLDINGS ECG 49256 GOMEZ DYER ROUTINE 5 [facility] ECG INC INC W/LEAST 12 LDS TRCG ONLY W/O I&R ECG 79383 CARDIOVAS BRITANY ROUTINE 5 CULAR MAT ECG CONSULTAN W/LEAST TS O 12 LDS I&R ONLY O2 CONC 1 E1390 NAOMIE [facility]BAR [facility] 5 HOME HOME 85%/>02 MEDICAL MEDICAL CONC AT EQUIPME EQUIPKIT [facility] FLW RATE ECG 91344 CARDIOVAS BRITANY ROUTINE 5 CULAR MAT ECG CONSULTAN W/LEAST TS O 12 LDS I&R ONLY ECG 12351 GOMEZ DYER ROUTINE 5 [facility] ECG INC INC W/LEAST 12 LDS TRCG ONLY W/O I&R DUPLEX 41811 [place] [facility] ALL SCAN 5 MEDICAL EXTRACRAN IMAGING IAL ART ASS COMPL BI STUDY ECG 77295 GOMEZ DYER ROUTINE 5 [facility] ECG INC INC W/LEAST 12 LDS TRCG ONLY W/O I&R ECG 39541 CARDIOVAS CARDIOVAS ROUTINE 5 CULAR CULAR ECG CONSULTAN CONSULTAN W/LEAST TS O TS O 12 LDS I&R ONLY IMPLANTAT 36110 CARDIOVAS BRITANY ION 5 CULAR MAT PT-ACTIVA CONSULTAN VIVIAN TS O CARDIAC EVENT RECORDER O2 CONC 1 E1390 NAOMIE NAOMIEAN [facility] 5 HOME HOME 85%/>02 MEDICAL MEDICAL CONC AT EQUIPME EQUIPKIT [facility] FLW RATE ECG 66281 CARDIOVAS BRITANY ROUTINE 5 CULAR MAT ECG CONSULTAN W/LEAST TS O 12 LDS I&R ONLY ECG 95987 GOMEZ DYER ROUTINE 5 MEM [facility] ECG INC INC W/LEAST 12 LDS TRCG ONLY W/O I&R ECG 28853 CARDIOVAS BRITANY ROUTINE 5 CULAR MAT ECG CONSULTAN W/LEAST TS O 12 LDS W/I&R O2 CONC 1 E1390 NAOMIE [facility]BAR [facility] 5 HOME HOME 85%/>02 MEDICAL MEDICAL CONC AT EQUIPME EQUIPKIT [facility] [place] [place] [address] GOMEZ DYER THYROXINE 5 MEM [facility] [place] [address] GOMEZ DYER THYROID 5 [facility] STIMULATI INC INC NG HORMONE TSH BLOOD 04021 GOMEZ DYER COUNT 5 [facility]OS[facility] COMPLETE INC INC AUTO&AUTO DIFRNTL WBC COLLECTIO 32516 GOMEZ DYER N VENOUS 5 MEM H[facility] [place] [address] GOMEZ DYER FOLIC 5 MEM H[facility]OS[facility] ACID INC INC SERUM CYANOCOBA 19057 GOMEZ DYER JENNY 5 [facility]OS[facility] VITAMIN INC INC B-12 25 02303 GOMEZ DYER HYDROXY 5 MEM H[facility]OS[facility] INCLUDES INC INC FRACTIONS IF PERFORMED COMPREHEN 84240 GOMEZ YDER SIVE 5 [facility] METABOLIC INC INC PANEL COMPREHEN 31481 MEADOW[facility]IE MEADOWVIE SIVE 5 W W METABOLIC REGIONAL REGIONAL PANEL MEDICAL MEDICAL CREATINE 32514 MEAD[facility]IE MEADOWVIE KINASE 5 W W [place] [address] MEADOW[facility] MEADOWVIE HEAD/BRAI 5 W W N W/O REGIONAL REGIONAL CONTRAST MEDICAL MEDICAL MATERIAL RADIOLOGI 78894 [facility] MEADOWVIE C 5 W W EXAMINATI REGIONAL REGIONAL ON CHEST MEDICAL MEDICAL SINGLE VIEW FRONTAL BLOOD 35511 [facility] MEADOWVIE COUNT 5 W W COMPLETE REGIONAL REGIONAL AUTO&AUTO [place]ICAL [place] [address] MEADOW[facility] MEADOWVIE TROPONIN 5 W W QUANTITAT REGIONAL REGIONAL [place] MEDICAL MEDICAL INFUSION J7030 MEAD[facility]IE MEADOWVIE NORMAL 5 W W SALINE REGIONAL REGIONAL SOLUTION MEDICAL MEDICAL 1000 CC ECG 28820 [facility] ROUTINE 5 DESIRE TARAH ECG EMERGENCY W/LEAST PHYS 12 LDS I&R ONLY ECG 48943 MEADOW[facility]IE MEADOWVIE ROUTINE 5 W W ECG REGIONAL REGIONAL W/LEAST MEDICAL MEDICAL 12 LDS TR[place] ONLY W/[place] [address] MEADOW[facility]IE MEADOWVIE INFUSION 5 W W HYDRATION REGIONAL REGIONAL INITIAL MEDICAL MEDICAL 31 MIN-1 [place] [address] [facility] [place] STENT CRV 5 [facility] KAMILA CRTD ART MEDICAL EMBOLIC G PROTECJ RADIOLOGI 58980 [facility] [place] [facility] C EXAM 5 RADIOLOGY CAR CHEST 2 VIEWS FRONTAL&[place] [address] [facility] [place] STENT CRV 5 NE [facility] CRTD ART MEDICAL EMBOLIC G PROTECJ SLCTV 59593 [facility] [place] CATH 5 NE [facility] CAROTID/I MEDICAL NNOM ART G ANGIO XTRCRANL ART PERCUTANE [address] ANGIOPLAS TY EXTRACRAN IAL VESSELS PERCUTANE [address] INSERTION CAROTID ARTERY STENT(S) INSERTION [address] VASCULAR STENT PROCEDURE [address] SINGLE VESSEL PROCEDURE [address] VESSEL BIFURCATI ON DUPLEX 45356 [facility] [place] SCAN 5 NE [facility] EXTRACRAN MEDICAL IAL ART G COMPL BI STUDY THERAPEUT 37598 [facility] IC 5 PHYSICIAN KAMILA PROPHYLAC S GROUP TIC/DX INJECTION SUBQ/IM INJECTION J0696 [facility] 5 PHYSICIAN KAMILA CEFTRIAXO S GROUP NE SODIUM PER 250 MG INJECTION J1040 [facility] 5 PHYSICIAN KAMILA METHYLPRE S GROUP DNISOLONE ACETATE 80 MG SBSQ 50347 [facility] 5 CULAR MAT CARE/DAY CONSULTAN 25 TS O MINUTES OBSERVATI 41056 [facility] ON CARE 5 [place] [address] [facility] HEAD/BRAI 5 VENANCIO N W/O RADIOLOGY CONTRAST ASSOCIAT MATERIAL RADIOLOGI 51537 [facility] C 5 EXAMINATI RADIOLOGY RADIOLOGY ON CHEST ASSOCIAT ASSOCIAT SINGLE VIEW FRONTAL SLCTV 35165 [facility] CATH 5 CULAR MAT INTRNL CONSULTAN CAROTID TS O ART ANGIO INTRCRNL ART SLCTV 80201 [facility] CATHJ EA 5 CULAR MAT 1ST ORD CONSULTAN ABDL TS O PEL/LXTR ART BRNCH DUPLEX 17967 [facility] SCAN 5 VENANCIO EXTRACRAN RADIOLOGY IAL ART ASSOCIAT COMPL BI STUDY CATH PLMT 51157 [facility] L HRT & 5 CULAR MAT ARTS CONSULTAN W/NJX & TS O ANGIO IMG S&I ECG 02386 [facility] BLACK JAZZMINE ROUTINE 5 CULAR ECG CONSULTAN W/LEAST TS O 12 LDS W/I&R INITIAL 12524 [facility] VALLEY ABR ON HEART CARE/DAY 70 MINUTES INJECTION J1644 [facility] HEPARIN 5 W W SODIUM REGIONAL REGIONAL PER 1000 MEDICAL MEDICAL UNITS INJECTION J2001 [facility] ME[facility] 5 W W LIDOCAINE REGIONAL REGIONAL HCL MEDICAL MEDICAL INTRAVENO US INFUS 10 MG INJECTION J3010 [facility] ME[facility] FENTANYL 5 W W [place] REGIONAL REGIONAL 0.1 MG MEDICAL MEDICAL INFUSION J7030 [facility] NORMAL 5 W W [place] [facility]IONAL SOLUTION MEDICAL MEDICAL 1000 CC INJECTION J2250 [facility] ME[facility] 5 W W [place] REGIONAL REGIONAL HCL PER MEDICAL MEDICAL 1 MG LOCM Q9967 ME[facility] MEADOWVIE 300-399 5 W W MG/ML REGIONAL REGIONAL IODINE MEDICAL MEDICAL CONCENTRA TION PER ML O2 CONC 1 E1390 [facility] 5 HOME HOME 85%/>02 MEDICAL MEDICAL CONC AT EQUIPME EQUIPME PRSC FLW RATE BLOOD 79059 KUSH CURRIE COUNT 5 CO [facility] AUTO&AUTO DIFRNTL WBC COMPREHEN 52284 [facility] PANEL COMPREHEN 07790 GOMEZ DYER SIVE 5 [facility] METABOLIC INC INC PANEL BLOOD 69031 GOME[facility] DYER COUNT 5 [facility] COMPLETE INC INC AUTO&AUTO DIFRNTL WBC HEMOGLOBI 69021 GOMEZ DYER N 5 [facility] GLYCOSYLA INC INC VIVIAN A1C ADMN SET [id number] YOUR YOUR W/SM VOL 5 PHARMACY PHARMACY [facility] NEBULIZR NON-DISPB L O2 CONC 1 E1390 NAOMIE [facility] 5 HOME HOME 85%/>02 MEDICAL MEDICAL CONC AT EQUIPME EQUIPKIT [facility] FLW RATE INJECTION J1030 KUSH CURRIE 5 CO [facility] DNISOLONE ACETATE 40 MG BLOOD 52706 KUSH CURRIE COUNT 5 CO CO [facility] AUTO&AUTO DIFRNTL WBC PRESSURIZ 02491 KUSH CURRIE ED/NONPRE 5 CO CO SSURIZED [facility] INHALATIO N TREATMENT THERAPEUT 99146 KUSH CURRIE IC 5 [facility] T[facility]DX INJECTION SUBQ/IM BASIC 62137 KUSH CURRIE METABOLIC 5 CO CO [facility] CALCIUM TOTAL COLLECTIO 51768 KUSH CURRIE N VENOUS 5 CO CO [facility] VENIPUNCT URE RADIOLOGI 88656 [facility] EXAM 5 DESIRE JAM CHEST 2 EMERGENCY VIEWS PHYS FRONTAL&L ATERAL O2 CONC 1 E1390 NAOMIE [facility] 5 HOME HOME 85%/>02 MEDICAL MEDICAL CONC AT EQUIPME [facility] FLW RATE OPHTH 72156 [facility] 5 GRE GRE XM&EVAL COMPRE NEW PT 1/> VST O2 CONC 1 E1390 NAOMIE [facility] 5 HOME HOME 85%/>02 MEDICAL MEDICAL CONC AT EQUIPME [facility] FLW RATE DRUG SCR G0434 [facility] [...] [employer]OL[employer] ES EACH PROCEDURE CREATININ 08934 [facility] E OTHER 5 DARRYL DARRYL SOURCE [employer] HOLDINGS LIPID 38795 [facility] PANEL 5 DARRYL DARRYL HOLDINGS HOLDINGS GENERAL [address] LAB [facility] DIE[facility] HEALTH 5 DARRYL DARRYL PANEL HOLDINGS HOLDINGS COLLECTIO 91400 [facility] ELENA N VENOUS 5 CLINIC BLOOD VENIPUNCT URE O2 CONC 1 E1390 NAOMIE AKBAR DEL [place] 5 HOME HOME 85%/>02 MEDICAL MEDICAL CONC AT EQUIPME EQUIPME PRSC FLW RATE O2 CONC 1 E1390 NAOMIEAN AKBAR DEL [place] 5 HOME HOME 85%/>02 MEDICAL MEDICAL CONC AT EQUIPME EQUIPME PRSC FLW RATE O2 CONC 1 E1390 NAOMIE AKBAR DEL PORT 4 HOME HOME 85%/>02 MEDICAL MEDICAL CONC AT EQUIPME EQUIPME PRSC FLW RATE ADMN SET A7005 YOUR YOUR W/SM VOL 4 PHARMACY PHARMACY NONFILTR [facility] NEBULIZR NON-DISPB L O2 CONC 1 E1390 NAOMIE AKBAR DEL [place] 4 HOME HOME 85%/>02 MEDICAL MEDICAL CONC AT EQUIPME EQUIPME PRSC FLW RATE O2 CONC E1390 NAOMIE AKBAR DEL [place] 4 HOME HOME 85%/>02 MEDICAL MEDICAL CONC AT EQUIPME EQUIPME PRSC FLW RATE O2 CONC 1 E1390 NAOMIE AKBAR DEL [place] 4 HOME HOME 85%/>02 MEDICAL MEDICAL CONC AT EQUIPME EQUIPME PRSC FLW RATE O2 CONC 1 E1390 NAOMIEAN AKBAR DEL [place] 4 HOME HOME 85%/>02 MEDICAL MEDICAL CONC AT EQUIPME EQUIPME PRSC FLW RATE LOCM Q9967 [facility] UNIVERS [phone] 4 Y Y MG/ML HOSPITAL HOSPITAL IODINE CONCENTRA TION PER ML CT SOFT 42342 [facility] 4 Y Y NECK [facility] W/CONTRAS T MATERIAL CT THORAX 13124 [place] [facility] JONATAN 4 MEDICAL W/CONTRAS SERV T FOUNDATIO MATERIAL COLLECTIO 76536 CHEN[facility] KIRK N VENOUS 4 CLINIC NHI BLOOD VENIPUNCT URE COMPREHEN 38093 LAB DIEGO LAB DIEGO SIVE 4 DARRYL DARRYL METABOLIC HOLDINGS HOLDINGS PANEL BLOOD 16178 LAB DIE[facility] LAB DIEGO COUNT 4 DARRYL DARRYL COMPLETE [place] [address] LAB DIE[facility] LAB DIEGO PROSTATE 4 DARRYL DARRYL SPECIFIC [place] [address] LAB DIEGO LAB DIEGO PROSTATE 4 DARRYL DARRYL SPECIFIC [place] [address] LAB DIEGO LAB DIEGO FREE 4 DARRYL DARRYL [place] [address] LAB DIEGO LAB DIEGO TRIIODOTH 4 DARRYL DARRYL YRONINE HOLDINGS HOLDINGS T3 [place] [address] LAB DIEGO LAB DIEGO THYROID 4 DARRYL DARRYL STIMULATI HOLDINGS HOLDINGS NG HORMONE TSH O2 CONC 1 E1390 NAOMIE NAOMIE DEL [...] YOUR YOUR W/SM VOL 4 PHARMACY PH[facility] [place] [address] LAB DIE[facility] LAB DIEGO THYROID 4 OF DARRYL STIMULATI DARRYL HOLDINGS NG HOLDINGS HORMONE TSH BLOOD 70277 LAB DIEGO LAB DIEGO COUNT 4 OF DARRYL COMPLETE DARRYL HOLDINGS AUTOMATED HOLDINGS COMPREHEN 61087 LAB DIEGO LAB DIEGO SIVE 4 OF DARRYL METABOLIC DARRYL HOLDINGS PANEL HOLDINGS LIPID 70036 LAB [facility] DIEGO PANEL 4 OF DARRYL DARRYL HOLDINGS HOLDINGS CREATINE 35509 LAB D[facility] LAB DIEGO KINASE 4 OF DARRYL TOTAL DARRYL HOLDINGS HOLDINGS COLLECTIO 96175 [facility] AMADO N VENOUS 4 CLINIC [facility] [place] BLOOD VENIPUNCT URE O2 CONC 1 E1390 NAOMIE NAOMIE DEL [...] [facility] PNEUMAT NEBULIZR DISPBL IM ADM 97228 CHENCHO HUTCHINS- PRQ ID 4 CLINIC [facility] [place] SUBQ/IM NJXS 1 VACCINE IIV3 04815 CHEN[facility] HUTCHINS- VACCINE 4 CLINIC [facility] [place] SPLIT VIRUS 0.5 ML DOSAGE IM USE O2 CONC 1 E1390 NAOMIE CARRION PORT 4 HOME HOME 85%/>02 MEDICAL MEDICAL CONC AT EQUIPME EQUIPME PRSC FLW RATE ADMN SET A7003 YOUR YOUR SM VOL 3 PHARMACY PHARMACY NONFILTR [employer] [facility] PNEUMAT NEBULIZR DISPBL O2 CONC 1 E1390 NAOMIE AKBAR [facility] PORT 3 HOME HOME 85%/>02 MEDICAL MEDICAL CONC AT EQUIPME EQUIPME PRSC FLW RATE O2 CONC 1 E1390 NAOMIE CARRION [place] 3 HOME HOME 85%/>02 MEDICAL MEDICAL CONC AT EQUIPME EQUIPME PRSC FLW RATE ADMN SET A7003 YOUR YOUR SM VOL 3 PHARMACY PHARMACY [employer] [facility] PNEUMAT NEBULIZR DISPBL DUPLEX 23775 [employer], SCAN 3 MRP CONTROLLER MRP CONTROLLER EXTRACRAN JESSIE ROMAN IAL ART CO HOS CO HOS COMPL BI STUDY LIPID 65462 LAB DIEGO LAB DIEGO PANEL 3 DARRYL DARRYL HOLDINGS HOLDINGS GENERAL 76139 [facility] D[facility] HEALTH 3 DARRYL DARRYL PANEL HOLDINGS HOLDINGS O2 CONC 1 E1390 NAOMIE AKBAR DEL [place] 3 HOME HOME 85%/>02 MEDICAL MEDICAL CONC AT EQUIPME EQUIPME PRSC FLW RATE ADMN SET A7003 YOUR YOUR SM VOL 3 PHARMACY PHARMACY NONFILTR [employer] [facility] PNEUMAT NEBULIZR DISPBL O2 CONC 1 E1390 NAOMIE [facility] 3 HOME HOME 85%/>02 MEDICAL MEDICAL CONC AT EQUIPME EQUIPME PRSC FLW RATE ADMN SET A7003 YOUR YOUR SM VOL 3 [facility] P[facility]UMAT NEBULIZR DISPBL O2 CONC 1 E1390 NAOMIE [facility] 3 HOME HOME 85%/>02 MEDICAL MEDICAL CONC AT EQUIPME EQUIPME PRSC FLW RATE COMPREHEN 88209 LAB DIE[facility] LAB DIEGO SIVE 3 OF AMERIC METABOLIC DARRYL HOLDING PANEL HOLDINGS LIPID 76402 LAB DIEGO LAB DIEGO PANEL 3 OF AMERIC DARRYL HOLDING HOLDINGS CREATINE 23802 LAB DIEGO LAB DIEGO KINASE 3 OF AMERIC TOTAL DARRYL HOLDING HOLDINGS BLOOD 36883 LAB DIEGO LAB DIEGO COUNT 3 OF AMERIC COMPLETE [place]ARR[place] [address] LAB DIEGO LAB DIEGO THYROID 3 OF AMERIC STIMULATI DARRYL HOLDING NG HOLDINGS HORMONE TSH ADMN SET A7003 YOUR YOUR SM VOL 3 PHARMACY PHARMACY [facility] PNEUMAT NEBULIZR DISPBL O2 CONC 1 E1390 [facility] 3 HOME HOME 85%/>02 MEDICAL MEDICAL CONC AT EQUIPME EQUIPME PRSC FLW RATE ADMN SET A7003 YOUR YOUR SM VOL 3 PHARMACY PHARMACY [facility] PNEUMAT NEBULIZR DISPBL LOCM Q9967 [facility] 300-399 3 MG/ML DIAGNOSTI DIAGNOSTI IODINE C CENTER, C CENTER, CONCENTRA TION PER ML CT SOFT 41823 [facility] TISSUE 3 NECK DIAGNOSTI DIAGNOSTI W/CONTRAS C CENTER, C CENTER, T MATERIAL CT THORAX 46004 [facility] 3 W/CONTRAS DIAGNOSTI DIAGNOSTI T C CENTER, C CENTER, MATERIAL O2 CONC 1 E1390 [facility]IE [facility] 3 HOME HOME 85%/>02 MEDICAL MEDICAL CONC AT EQUIPME EQUIPME PRSC FLW RATE ADMN SET A7003 YOUR YOUR SM VOL 3 PHARMACY PHARMACY [facility] PNEUMAT NEBULIZR DISPBL O2 CONC 1 E1390 [facility]IE [facility] 3 HOME HOME 85%/>02 MEDICAL MEDICAL CONC AT EQUIPME EQUIPME PRSC FLW RATE ADMN SET A7003 YOUR YOUR SM VOL 3 PHARMACY PHARMACY NONFILTR [facility] PNEUMAT NEBULIZR DISPBL O2 CONC 1 E1390 NAOMIE CARRION [place] 3 HOME HOME 85%/>02 MEDICAL MEDICAL CONC AT EQUIPME EQUIPME PRSC FLW RATE ADMN SET A7003 YOUR YOUR SM VOL 3 PHARMACY PHARMACY NONFILTR [facility] PNEUMAT NEBULIZR DISPBL O2 CONC 1 E1390 NAOMIE CARRION [place] 3 HOME HOME 85%/>02 MEDICAL MEDICAL CONC AT EQUIPME EQUIPME PRS FLW RATE NEBULIZER E0570 NAOMIE AKBAR WITH 3 HOME HOME COMPRESSO MEDICAL MEDICAL R EQUIPME EQUIPME ADMN SET A7003 YOUR YOUR SM VOL 3 [facility]Y [facility] PNEUMAT NEBULIZR DISPBL CYANOCOBA 06363 LAB D[facility] LAB DIEGO JENNY 3 DARRYL DARRYL VITAMIN HOLDINGS HOLDINGS B-12 [place] [address] LAB DIEGO LAB DIEGO FOLIC 3 DARRYL DARRYL ACID HOLDINGS HOLDINGS SERUM BLOOD 81163 LAB DIEGO LAB DIEGO COUNT 3 DARRYL DARRYL COMPLETE HOLDINGS HOLDINGS AUTO&AUTO DIFRNTL WBC ADMN SET A7003 YOUR YOUR SM VOL 3 PHARMACY [facility] [place] [address] LAB DIEGO LAB DIEGO THYROID 3 DARRYL DARRYL STIMULATI HOLDINGS HOLDINGS NG HORMONE TSH LIPID 23037 LAB DIE[facility] LAB DIEGO PANEL 3 DARRYL DARRYL HOLDINGS HOLDINGS COMPREHEN 50336 LAB D[facility] LAB DIEGO SIVE 3 DARRYL DARRYL METABOLIC HOLDINGS HOLDINGS PANEL CT THORAX 11134 [facility] W/O 3 Y Y [facility] MATERIAL O2 CONC 1 E1390 NAOMIE CARRION [place] 3 HOME HOME 85%/>02 MEDICAL MEDICAL CONC AT EQUIPME EQUIPME PRSC FLW RATE ADMN SET A7003 YOUR YOUR SM VOL 2 [facility]Y [facility] PNEUMAT NEBULIZR DISPBL O2 CONC 1 E1390 NAOMIE CARRION [place] 2 HOME HOME 85%/>02 MEDICAL MEDICAL CONC AT EQUIPME EQUIPME PRSC FLW RATE CT THORAX 45881 ATTILI ATTILI 2 ANI ANI W/CONTRAS T MATERIAL CT SOFT 86023 RHONDA KHAN TISSUE 2 NECK W/CONTRAS T MATERIAL ADMN SET A7003 YOUR YOUR SM VOL 2 [facility] PNEUMAT NEBULIZR DISPBL O2 CONC 1 E1390 NAOMIE NAOMIE DEL [place] 2 HOME HOME 85%/>02 MEDICAL MEDICAL CONC AT EQUIPME EQUIPAR PRS FLW RATE ADMN SET A7003 YOUR YOUR SM VOL 2 PHARMACY PHARMACY NONFILTR LLC LLC PNEUMAT NEBULIZR DISPBL O2 CONC 1 E1390 NAOMIE NAOMIE DEL [place] 2 HOME HOME 85%/>02 MEDICAL MEDICAL CONC AT EQUIPME EQUIPME PRS FLW RATE ADMN SET A7003 YOUR YOUR SM VOL 2 PHARMAC[facility] PNEUMAT NEBULIZR DISPBL IIV3 01900 MARGO LEESN VACCINE 2 Apr SPLIT VIRUS 0.5 ML DOSAGE IM USE IM ADM 49362 MARGO ARAGON PRQ ID 2 Apr SUBQ/IM NJXS 1 VACCINE O2 CONC 1 E1390 [facility] 2 HOME HOME 85%/>02 MEDICAL MEDICAL CONC AT EQUIPME EQUIPAR PRSC FLW RATE ADMN SET A7003 YOUR YOUR SM VOL 2 PHARMACY [facility] PNEUMAT NEBULIZR DISPBL O2 CONC 1 E1390 [facility] PORT 2 HOME HOME 85%/>02 MEDICAL MEDICAL CONC AT EQUIPME [facility] PRS FLW RATE ADMN SET A7003 YOUR YOUR SM VOL 2 PHARMACY PHARMACY NONFIL [email or web address] [facility] PNEUMAT NEBULIZR DISPBL POLYSOM 21452 [employer], [employer], 6/>YRS 2 MRP CONTROLLER MRP CONTROLLER SLEEP 4/> JESSIE ROMAN ADDL CO HOS CO HOS YESENIA ATTND COMPRE 98457 [facility] AUDIOMETR 2 Y Y Y HOSPITAL HOSPITAL THRESHOLD EVAL SP RECOGNIJ TYMPANOME 47300 [facility] 2 Y Y HOSPITAL HOSPITAL O2 CONC 1 E1390 NAOMIE AKBAR [facility] PORT 2 HOME HOME 85%/>02 MEDICAL MEDICAL CONC AT EQUIPME EQUIPME PRSC FLW RATE ADMN SET A7003 YOUR YOUR SM VOL 2 PHARMACY PHARMACY NONFILTR LLC LLC PNEUMAT NEBULIZR DISPBL O2 CONC 1 E1390 NAOMIE AKBAR [facility] PORT 2 HOME HOME 85%/>02 MEDICAL MEDICAL CONC AT EQUIPME EQUIPME PRSC FLW RATE ADMN SET A7003 YOUR YOUR SM VOL 2 PHARMACY PHARMACY NONFILTR LLC LLC PNEUMAT NEBULIZR DISPBL LOCM Q9967 [facility] 300-399 2 Y Y MG/ML [facility] IODINE CONCENTRA TION PER ML CT SOFT 16971 [facility] 2 Y Y NECK [facility] W/CONTRAS T MATERIAL CT THORAX 32671 [place] PAYNE 2 MEDICAL KAMILA W/CONTRAS SERV T FOUNDATIO MATERIAL CREATININ 90652 [facility] E BLOOD 2 Y Y HOSPITAL HOSPITAL O2 CONC 1 E1390 NAOMIE [facility] 2 HOME HOME 85%/>02 MEDICAL MEDICAL CONC AT EQUIPME EQUIPME PRSC FLW RATE ADMN SET A7003 YOUR YOUR SM VOL 2 PHARMACY PHARMACY NONFILTR LLC LLC PNEUMAT NEBULIZR DISPBL O2 CONC 1 E1390 NA[facility]IE [facility] 2 HOME HOME 85%/>02 MEDICAL MEDICAL CONC AT EQUIPME EQUIPME PRSC FLW RATE ADMN SET A7003 YOUR YOUR SM VOL 2 PHARMACY PHARMACY NONFILTR [email or web address] [facility] PNEUMAT NEBULIZR DISPBL LOCM Q9967 [employer], 300-399 2 MRP CONTROLLER MRP CONTROLLER MG/ML JESSIE JESSIE IODINE CO HOS CO HOS CONCENTRA TION PER ML CTA ABDL 01644 [employer], AORTA&BI 2 MRP CONTROLLER MRP CONTROLLER ILIOFEM JESSIE JESSIE W/CONTRAS CO HOS CO HOS T&POSTP CREATININ 92404 [employer], [employer], E BLOOD 2 MRP CONTROLLER MRP CONTROLLER [place]ESS[place] [address] [employer], [employer], UREA 2 MRP CONTROLLER MRP CONTROLLER NITROGEN JESSIE ROMAN QUANTITAT CO HOS CO HOS [place] O2 CONC 1 E1390 NAOMIE AKBAR DEL PORT 2 HOME HOME 85%/>02 MEDICAL MEDICAL CONC AT EQUIPME EQUIPME PRSC FLW RATE ADMN SET A7003 YOUR YOUR SM VOL 2 PHARMACY PHARMACY NONFILTR [email or web address] [facility] PNEUMAT NEBULIZR DISPBL O2 CONC 1 E1390 NAOMIE AKBAR DEL PORT 2 HOME HOME 85%/>02 MEDICAL MEDICAL CONC AT EQUIPME EQUIPME PRSC FLW RATE PILLW A7033 YOUR YOUR NASL 2 PHARMACY PHARMACY CANNULA [email or web address] TYPE INTERFCE REPL ONLY PAIR EVAL 96821 [facility] SPEECH 2 Y Y [facility] VOICE COMMUNJ &/CLINICAL REVIEW NURSE Y PROC BLOOD 37432 JESSIE ROMAN COUNT 2 CO CO [facility] AUTO&AUTO DIFRNTL WBC BASIC 87746 JESSIE ROMAN METABOLIC 2 CO CO [facility] CALCIUM TOTAL RADIOLOGI 04016 [facility] C EXAM 2 NGOZI CHEST 2 RADIOLOGY VIEWS ASSOCIAT FRONTAL&L ATERAL RADIOLOGI 12069 JESSIE ROMAN C 2 CO [facility] ON NECK SOFT TISSUE ADMN SET A7003 YOUR YOUR SM VOL 1 PHARMACY PHARMACY [employer] [facility] PNEUMAT NEBULIZR DISPBL IM ADM 79780 TAMSTIVEN LEESN PRQ ID 1 Apr SUBQ/IM NJXS 1 VACCINE IIV3 65094 TAMAREN TAMAREN VACCINE Apr SPLIT VIRUS 0.5 ML DOSAGE IM USE CT SOFT 02017 AMATO AMATO TISSUE 1 JONATAN JONATAN NECK W/CONTRAS T MATERIAL CT THORAX 03851 [facility] 1 Y Y [facility] T MATERIAL ADMN SET A7003 YOUR YOUR SM VOL 1 PHARMACY PHARMACY NONFILTR [email or web address] [facility] PNEUMAT NEBULIZR DISPBL LOCM Q9967 [facility] 300-399 1 Y Y MG/ML [facility] IODINE CONCENTRA TION PER ML VISUAL 11307 ROCCO VALIENTE FIELD XM 1 GRE GRE UNI/BI W/INTERP EXTENDED EXAM RADEX 36354 HAGENSCHN HAGENSCHN SPINE 1 EIDER ULICES EIDER ULICES LUMBOSACR AL MINIMUM 4 VIEWS ADMN SET A7003 YOUR YOUR SM VOL 1 PHARMACY PHARMACY [employer] PNEUMAT NEBULIZR DISPBL RADIOLOGI 16177 JESSIE Jimenez EXAM 1 CO CO CHEST 2 [facility] VIEWS FRONTAL&L ATERAL PRESSURIZ 47180 CHENCHO ARAGON ED/NONPRE 1 CLINIC CECILIA SSURIZED [place] [address] [facility] FREE 1 Y Y THYROXINE [facility]OSPITAL COLLECTIO 45550 [facility] N VENOUS Y Y BLOOD [facility] VENIPUNCT URE GENERAL 32136 [facility] Y Y PANEL [facility] COMPREHEN 76290 MEADOWVIE MEADOWVIE SIVE 1 W W METABOLIC [facility]IONAL PANEL MEDICAL MEDICAL COLLECTIO 42805 MEADOWVIE MEADOWVIE N VENOUS 1 W W BLOOD [facility] [place] [address] MEADOWVIE MEADOWVIE FREE 1 W W THYROXINE [facility] [place] [address] MEADOWVIE MEADOWVIE THYROID 1 W W STIMULATI REGIONAL REGIONAL NG MEDICAL MEDICAL HORMONE TSH BLOOD 96590 MEADOWVIE MEADOWVIE COUNT 1 W W COMPLETE REGIONAL REGIONAL AUTOMATED MEDICAL MEDICAL LARYNGOSC 14449 TIFFANIE BRUMFIELD OPY 1 MEDICAL FLEXIBLE SERV DIAGNOSTI FOUNDATIO [place] 78416 [facility] [address] RADIOLOGY ATTENUATI ASSOCIAT [place] [address] JESSIE ROMAN THYROID 1 [facility] [place] [address] JESSIE ROMAN THYROXINE 1 CO CO TOTAL [facility] [place] [address] LABONE OF LABONE OF THYROID 1 [employer] [place] [address] [facility] 1 Y Y NITROGEN HOSPITAL HOSPITAL QUANTITAT [place] CREATININ 59980 [facility] E BLOOD 1 Y Y HOSPITAL HOSPITAL LARYNGOSC 25412 TIFFANIE FROST OPY 1 MEDICAL CECILIA FLEXIBLE SERV DIAGNOSTI FOUNDATIO C COLLECTIO 65655 UNIVERS UNIVERS N VENOUS 1 Y Y BLOOD [facility] VENIPUNCT URE CT SOFT 34493 [facility] TISSUE 1 Y NECK HOSPITAL W/CONTRAS T MATERIAL CT THORAX 84456 [facility] 1 Y Y W/CONTRAS HOSPITAL HOSPITAL T MATERIAL COLLECTIO 19488 MEADOWVIE MEADOWVIE N VENOUS 1 W W BLOOD [facility] REG[facility]AL VENIPUNCT MEDICAL MEDICAL URE COMPREHEN 93461 MEADOWVIE MEADOWVIE SIVE 1 W W METABOLIC REGIONAL [place] [address] MEADOWVIE MEADOWVIE THYROID 1 W W STIMULATI [facility] [place] [address] MEADOWVIE MEADOWVIE FREE 1 W W THYROXINE [facility] MEDICAL MEDICAL BLOOD 64030 MEADOWVIE MEADOWVIE COUNT 1 W W COMPLETE [facility] [place] [address] KUSH CURRIE SWALLOWIN 1 [facility] DYSFUNCTI ON&/[place] [address] KUSH CURRIE SWALLOWIN 1 [facility] DYSFUNCTI ON&/[place] [address] KUSH CURRIE SWALLOWIN 1 [facility] DYSFUNCTI ON&/[place] [address] LABONE OF LABONE OF THYROID 1 [facility] STIMULATI NG HORMONE TSH COLLECTIO 51412 [facility] N VENOUS 1 [place] [address] KUSH CURRIE SWALLOWIN 1 [facility] DYSFUNCTI ON&/[place] [address] KUSH CURRIE SWALLOWIN 1 [facility] DYSFUNCTI ON&/[place] [address] LABONE OF LABONE OF THYROID 1 [employer] [place] [address] KUSH CURRIE SWALLOWIN 1 [facility] DYSFUNCTI ON&/[place] [address] KUSH CURRIE SWALLOWIN 1 [facility] DYSFUNCTI ON&/ORAL FUNCJ FEEDING LARYNGOSC 73429 [place] [facility] OPY 1 MEDICAL CECILIA [place] [address] KUSH CURRIE SWALLOWIN 0 [facility] DYSFUNCTI ON&/[place] [address] KUSH CURRIE SWALLOWIN 0 [facility] DYSFUNCTI ON&/[place] [address] MEADOWVIE MEADOWVIE THYROID 0 W W STIMULATI [facility] [place] [address] MEADOWVIE MEADOWVIE FREE 0 W W THYROXINE [facility] MEDICAL MEDICAL BLOOD 77650 MEADOWVIE MEADOWVIE COUNT 0 W W COMPLETE [facility] AUTOMATED MEDICAL MEDICAL COLLECTIO 25183 MEADOWVIE MEADOWVIE N VENOUS 0 W W BLOOD [facility] VENIPUNCT MEDICAL MEDICAL URE COMPREHEN 87429 MEADOWVIE MEADOWVIE SIVE 0 W W METABOLIC [facility] [place] [address] KUSH CURRIE SWALLOWIN 0 [facility] DYSFUNCTI ON&/[place] [address] KUSH CURRIE SWALLOWIN 0 [facility] DYSFUNCTI ON&/[place] [address] KUSH CURRIE SWALLOWIN 0 [facility] DYSFUNCTI ON&/[place] [address] KUSH CURRIE SWALLOWIN 0 [facility] DYSFUNCTI ON&/[place] [address] KUSH CURRIE SWALLOWIN 0 [facility] DYSFUNCTI ON&/[place] [address] KUSH CURRIE SWALLOWIN 0 [facility] DYSFUNCTI ON&/ORAL FUNCJ FEEDING TAPE A4450 [...] & & [place] [address] KUSH CURRIE [place] 0 [facility] DYSFUNCTI ON&/[place] [address] KUSH CURRIE SWALLOWIN 0 [facility] DYSFUNCTI ON&/[place] [address] KUSH CURRIE SWALLOWIN 0 [facility] DYSFUNCTI ON&/[place] [address] KUSH CURRIE [place]ALLOWIN 0 [facility] DYSFUNCTI ON&/[place] [address] [facility] [address] RADIOLOGY ATTENUATI [place]OC[place] [address] KUSH CURRIE [place] 0 [facility] DYSFUNCTI ON&/[place] [address] KUSH CURRIE SWALLOWIN 0 [facility] DYSFUNCTI ON&/[place] [address] KUSH CURRIE SWALLOWIN 0 [facility] DYSFUNCTI ON&/[place] [address] KUSH CURRIE SWALLOWIN 0 [facility] DYSFUNCTI ON&/[place] [address] KUSH CURRIE SWALLOWIN 0 [facility] DYSFUNCTI ON&/ORAL FUNCJ FEEDING ENTERAL B4034 KUSH CURRIE FEEDING 0 CO HOSP CO HOSP SUPPLY MED EQUIP MED EQUIP KIT; & & SYRINGE FED PER DAY TAPE A4450 KUSH CURRIE NON-WATER 0 CO HOSP CO HOSP PROOF PER MED EQUIP MED EQUIP 18 & & [place] [address] KUSH CURRIE SWALLOWIN 0 CO CO G [facility] DYSFUNCTI ON&/[place] [address] [facility] OF IRON 0 [facility] PREALBUMI 13225 [facility] LABONE OF N 0 [facility] [place] [address] [facility] CHLOE ZINC 0 JESSIE ROMAN INSTITUT INSTITUT GENERAL 24999 [facility] LABONE OF HEALTH 0 [facility] PANEL CYANOCOBA 70361 [facility] OF LABONE OF JENNY 0 [facility] VITAMIN B-12 [place] [address] LABONE OF LABONE OF FOLIC 0 [facility] [place] [address] KUSH CURRIE SWALLOWIN 0 CO CO G [facility] DYSFUNCTI ON&/ORAL FUNCJ FEEDING CULTURE 28735 JESSIE ROMAN BACTERIAL 0 CO CO [facility] QUANTTATI VE COLONY COUNT URINE ANTIBODY 77827 JESSIE ROMAN HELICOBAC [address] [facility] PYLORI BLOOD 34568 JESSIE ROMAN COUNT 0 CO CO SMEAR [facility] MCRSCP W/[place] [address] JESSIE ROMAN LIPASE 0 CO CO [facility] COMPREHEN 30649 JESSIE ROMAN SIVE 0 CO CO METABOLIC [facility] PANEL URNLS DIP 79962 JESSIE LABORATOR 0 CO Y STICK/TAB HOSPITAL CORPORATI LET ON OF [place] [address] JESSIE ROMAN AMYLASE 0 CO CO [facility] COLLECTIO 68944 JESSIE LABORATOR N VENOUS 0 CO Y BLOOD HOSPITAL CORPORATI VENIPUNCT ON OF AM URE THER 55220 JESSIE ROMAN PROPH/DX 0 CO CO NJX IV [facility] PUSH SINGLE/1S T SBST/[place] [address] KUSH CURRIE SWALLOWIN 0 CO CO G [facility] DYSFUNCTI ON&/[place] [address] KUSH CURRIE SWALLOWIN 0 CO [facility] DYSFUNCTI ON&/[place] [address] KUSH CURRIE SWALLOWIN 0 CO CO [facility] DYSFUNCTI ON&/ORAL FUNCJ FEEDING MOTION 42520 KUSH CURRIE FLUOR 0 CO CO [facility] FUNCJ C/V REC SWALLOWIN 32724 JESSICA WELDON FUNCJ 0 NGOZI W/CINERAD RADIOLOGY IOGRAPY/[place] [address] KUSH CURRIE SWALLOWIN 0 CO CO [facility] DYSFUNCTI ON&/ORAL FUNCJ FEEDING EVAL 04376 KUSH CURRIE ORAL&PHAR 0 CO [facility] FUN[facility] BLOOD 43484 [employer] MEADOWVIE COUNT 0 W W COMPLETE [facility] AUTOMATED MEDICAL MEDICAL COLLECTIO [address] [place] N VENOUS 0 W W BLOOD [facility] [place] [address] [facility] HYDRATION [facility] INITIAL 31 MIN-[place] [address] [facility] HYDRATION [facility] [place] [address] [facility] CO CO THERAPY/P [facility] ROPHYLAXI S /DX 1ST TO 1 HR LARYNGOSC 85921 [facility] OPY W/WO 0 Y Y TRACHEOSC [facility] OPY W/MICRO/T [place] ANES 81166 [place] [facility] ESOPH 0 MEDICAL CORY THYRD SERV LARYNX FOUNDATIO TRACH & LYMPH NECK 1YR ESOPHAGOS 89780 [place] [facility]ANT[facility] COPY 0 MEDICAL CECILIA FLEXIBLE SERV TRANSORAL FOUNDATIO DIAGNOSTI C DILATION 47511 [facility] ESOPH 0 Y Y UNGUIDED [facility] SOUND/YVETTE GIE 1/MULT PASS RINGERS J7120 [facility] LACTATE 0 Y Y INFUSION [facility] UP TO 1000 CC INJECTION J2250 [facility] UNIVERS 0 Y Y MIDAZOLAM [facility] HCL PER 1 MG INJECTION J1100 [facility] 0 Y Y DEXAMETHO [facility] SONE SODIUM PHOSPHATE 1 MG INJECTION J2710 [facility] 0 Y Y NEOSTIGMI [facility] NE METHYLSUL FATE UP TO 0.5 MG INJECTION J3010 [facility] FENTANYL 0 Y Y CITRATE [facility] 0.1 MG INJECTION J0330 [facility] 0 Y Y SUCCINYLC [facility] HOLINE CHLORIDE UP TO [address] SOFT [address]352 [facility] TISSUE 0 Y Y NECK [facility] W/CONTRAS T MATERIAL COLLECTIO 90115 [facility] N VENOUS 0 Y Y BLOOD [facility] VENIPUNCT URE CT THORAX 45245 [facility] 0 Y Y W/CONTRAS [facility] T MATERIAL CREATININ 97011 [facility] E BLOOD 0 Y Y [facility] [place] [address] [facility] UREA 0 Y Y NITROGEN [facility] QUANTITAT [place] MOTION 64825 [facility] FLUOR 0 CO CO [place] [facility]OSP[facility] FUNCJ C/V REC SWALLOWIN 76215 JESSICA Benson FUNCJ 0 NGOZI W/CINERAD RADIOLOGY IOGRAPY/[place] [address] JESSIE JESSIE INFUSION 0 CO CO THERAPY/P [facility] S /DX 1ST [place] [address] [facility] INFUSION 0 CO CO THERAPY [facility] [place] [address] [facility] INFUSION 0 CO CO THERAPY [facility] [place] [address] [facility] INFUSION 0 CO CO THERAPY/P [facility] S /DX 1ST TO 1 [place] [address] [facility] INFUSION 0 CO CO THERAPY/P [facility] S /DX 1ST TO 1 [place] [address] [facility] INFUSION 0 CO CO THERAPY HOSPITAL HOSPITAL [place] [address] JESSIE ROMAN INFUSION 0 CO CO THERAPY/P [facility]ITAL [facility] ROPHYLAXI S /DX 1ST [place] [address] JESSIE ROMAN INFUSION 0 CO CO THERAPY [facility] PROPHYLAX IS/DX EA HOUR BLOOD 50673 JESSIE ROMAN COUNT 0 CO CO COMPLETE [facility] AUTO&AUTO DIFRNTL WBC CULTURE 59632 JESSIE ROMAN BACTERIAL 0 CO CO BLOOD [facility] AEROBIC W/ID ISOLATES RADIOLOGI 67454 JESSIE ROMAN C EXAM 0 CO CO CHEST 2 [facility] VIEWS FRONTAL&L ATERAL COLLECTIO 54906 JESSIE ROMAN N VENOUS 0 CO CO BLOOD [facility] VENIPUNCT URE URNLS DIP 30555 JESSIE ROMAN 0 CO CO STICK/TAB HOSPITAL HOSPITAL LET REAGENT AUTO MICROSCOP Y COMPREHEN 62289 JESSIE ROMAN SIVE 0 CO CO METABOLIC [facility] PANEL RESP E0600 NAOMIE NAOMIE SUCTION 0 HOME MED HOME MED PUMP HOME EQUIP. L EQUIP. L MODEL PRTBLE/ST ATION ELEC TAPE A4450 KUSH CURRIE NON-WATER 0 CO HOSP CO HOSP PROOF PER MED EQUIP MED EQUIP 18 & & SQUARE INCHES COMPREHEN 25306 MEADOWVIE MEADOWVIE SIVE 0 W W [facility] COLLECTIO 51116 NIKITA HILLWVIE N VENOUS 0 W W BLOOD [facility] VENIPUNCT MEDICAL MEDICAL [facility] C[facility] BLOOD 83028 MEADOWVIE MEADOWVIE COUNT 0 W W COMPLETE [facility] AUTOMATED [facility] [place] [address] ONCOLOGY JAJA, INFUSION 0 HEMATOLOG BRITTANY Virgen HYDRATION Y CARE INITIAL INC 31 MIN-1 HOUR BLOOD 15819 CURRIE CURRIE COUNT 0 CO CO COMPLETE [facility] AUTO&AUTO DIFRNTL WBC COMPREHEN 62722 CURRIE CURRIE SIVE 0 CO CO [facility] PANEL RADEX 35804 [place] HAGENSCHN SPINE 0 EIDER, LUMBOSACR RADIOLOGY NANDINI WILKINSON 2/3 K VIEWS ASSOCIATE S PSC SBSQ 09023 [facility] 0 CLINIC CHAMP CARE/DAY PSC 15 MINUTES RADIOLOGI 91658 MALVERNEBarbara GALO EXAM 0 CECI Jimenez CHEST 2 RADIOLOGY VIEWS FRONTAL&L ASSOCIATE ATERAL S PSC OBSERVATI 21918 MA[facility] GR ON CARE 0 , MINOR , MINOR DISCHARGE MANAGEMEN T INITIAL 95352 MAILE ESTRADAINI OBSERVATI 0 , MINOR , MINOR ON CARE/DAY 70 MINUTES HOSPITAL G0378 JESSIE RMOAN OBSERVATI 0 CO CO ON HOSPITAL HOSPITAL SERVICE PER HOUR RADEX 02920 JESSICA WELDON, ABDOMEN 1 0 CECI Jimenez RADIOLOGY ANTEROPOS TERIOR ASSOCIATE VIEW S PSC RADEX ABD 51994 JESSIE ROMAN COMPL 0 CO CO AQT ABD [facility] W/S/E/D VIEWS 1 VIEW CH COLLECTIO 04092 JESSIE ROMAN N VENOUS 0 CO CO BLOOD [facility] VENIPUNCT URE RADIOLOGI 21920 Barbara TINSLEY 0 CECI Jimenez EXAMINATI RADIOLOGY ON CHEST SINGLE ASSOCIATE VIEW S PSC FRONTAL COMPREHEN 19948 JESSIE ROMAN SIVE 0 CO CO METABOLIC [facility] PANEL BLOOD 19470 JESSIE ROMAN COUNT 0 CO CO COMPLETE [facility] AUTO&AUTO DIFRNTL WBC BLOOD 63930 JESSIE ROMAN COUNT 0 CO CO SMEAR [facility] MCRSCP W/MNL DIFRNTL WBC COUNT THROMBOPL 35602 JESSIE ROMAN ASTIN 0 CO CO TIME [facility] PARTIAL PLASMA/WH OLE BLOOD PROTHROMB 37971 JESSIE ROMAN IN TIME 0 CO [place] [facility] [place] [address] JESSIE ROMAN INFUSION 0 CO CO THERAPY/P [facility] ROPHYLAXI S /DX 1ST TO 1 HR THER 85931 JESSIE ROMAN PROPH/DX 0 CO CO NJX IV [facility] PUSH SINGLE/1S T SBST/[place] [address] JESSIE ROMAN INFUSION 0 CO CO HYDRATION HOSPITAL HOSPITAL INITIAL 31 MIN-1 HOUR RADJ DLVR 63243 [place] I[place] 3/> 0 MEDICAL PRA AREAS SERV CUSTOM FOUNDATIO BLKING 6-10MEV RADJ DLVR 26485 [place] I[place] 3/> 0 MEDICAL PRA AREAS SERV CUSTOM FOUNDATIO BLKING 6-10MEV RADIATION 98697 [place] INA 0 MEDICAL PRA TREATMENT SERV FOUNDATIO MANAGEMEN T 5 TREATMENT S RADJ DLVR 81089 [place] I[place] 3/> 0 MEDICAL PRA AREAS SERV CUSTOM FOUNDATIO BLKING 6-10MEV RADJ DLVR 71092 [place] I[place] 3/> 0 MEDICAL PRA AREAS SERV CUSTOM FOUNDATIO BLKING 6-10MEV THERAPEUT 72788 [place] I[place] IC 0 MEDICAL PRA RADIOLOGY SERV PORT FOUNDATIO IMAGES(S) RADIATION 68107 [place] INA 0 MEDICAL PRA TREATMENT SERV FOUNDATIO MANAGEMEN T 5 TREATMENT S COMPREHEN 20441 NIKITA OLSONVIE SIVE 0 W W METABOLIC [facility] COLLECTIO 29803 NIKITA SHELTON N VENOUS 0 W W BLOOD [facility] CONTINUIN 55433 [place] G MEDICAL 0 MEDICAL PRA PHYSICS SERV CONSLTJ FOUNDATIO AL WK THERAPEUT 34920 ONCOLOGY JAJA CHR IC 0 HEMATOLOG INJECTION Y [place] [address] ONCOLOGY JAJA CHR INFUSION 0 HEMATOLOG THER Y CARE IN PROPH ADDL [place]ENT[place] L [place] [address] ONCOLOGY JAJA CHR INFUSION 0 HEMATOLOG HYDRATION Y CARE IN EACH ADDITIONA L HOUR BLOOD 16246 NIKITA SHELTON COUNT 0 W W COMPLETE [facility] CENTER INJECTION J2469 ONCOLOGY ONCOLOGY 0 HEMATOLOG HEMATOLOG [place] Y CARE IN Y CARE IN OCTAVIANO HCL 25 MCG INJECTION J9060 ONCOLOGY JAJA CHR 0 HEMATOLOG CISPLATIN Y CARE IN POWDER OR SOLUTION 10 MG CHEMOTX 45972 ONCOLOGY JAJA CHR ADMN IV 0 HEMATOLOG NFS TQ UP Y CARE IN 1 HR SBST/DRUG RADJ DLVR 42229 [place] I[place] 3/> 0 MEDICAL PRA AREAS SERV CUSTOM FOUNDATIO BLKING 6-10MEV RADJ DLVR 47118 [place] 3/> 0 MEDICAL PRA AREAS SERV CUSTOM FOUNDATIO BLKING 6-10MEV CONTINUIN 43336 [place] G MEDICAL 0 MEDICAL PRA PHYSICS SERV CONSLTJ FOUNDATIO AL WK RADJ DLVR 62530 [place] 3/> 0 MEDICAL PRA AREAS SERV CUSTOM FOUNDATIO BLKING 6-10MEV RADJ DLVR 51392 [place] 3/> 0 MEDICAL PRA AREAS SERV CUSTOM FOUNDATIO BLKING 6-10MEV RADJ DLVR 78790 [place] 3/> 0 MEDICAL PRA AREAS SERV CUSTOM FOUNDATIO BLKING 6-10MEV RADIATION 71036 [place] INA 0 MEDICAL PRA TREATMENT SERV FOUNDATIO MANAGEMEN T 5 TREATMENT S RADJ DLVR 53820 [place] 3/> 0 MEDICAL PRA AREAS SERV CUSTOM FOUNDATIO BLKING 6-10MEV GENERAL 06317 [facility] [place] INC PANEL LIPID 66575 [facility] PANEL 0 [place] INC RADJ DLVR 27418 [place] 3/> 0 MEDICAL PRA AREAS SERV CUSTOM FOUNDATIO BLKING 6-10MEV BASIC 05790 [place] RADIATION 0 MEDICAL PRA SERV DOSIMETRY FOUNDATIO CALCULATI ON TELETHERA 21252 [place] PY 0 MEDICAL PRA ISODOSE SERV PLAN FOUNDATIO COMPLETE THER RAD 04710 [place] SIMULAJ-A 0 MEDICAL PRA IDED SERV FIELD FOUNDATIO SETTING SIMPLE CONTINUIN 41314 [place] G MEDICAL 0 MEDICAL PRA [place] [address] [place] DEVICES 0 MEDICAL PRA DESIGN & SERV CONSTRUCT FOUNDATIO ION COMPLEX RADJ DLVR 02144 [place] 3/> 0 MEDICAL PRA AREAS SERV CUSTOM FOUNDATIO BLKING 6-10MEV RADIATION 80570 [place] INA 0 MEDICAL PRA TREATMENT SERV FOUNDATIO MANAGEMEN T 5 TREATMENT S RADJ DLVR 90040 [place] ZHANE, 3/> 0 MEDICAL DAVID AREAS SERV CUSTOM FOUNDATIO BLKING 6-10MEV RADJ DLVR 87242 [place] ZHANE, 3/> 0 MEDICAL DAVID AREAS SERV CUSTOM FOUNDATIO BLKING 6-10MEV CONTINUIN 67596 [place] G MEDICAL 0 MEDICAL PRA PHYSICS SERV CONSLTJ FOUNDATIO AL WK RADJ DLVR 15113 [place] 3/> 0 MEDICAL PRA AREAS SERV CUSTOM FOUNDATIO BLKING 6-10MEV RADIATION 37642 [place] INA 0 MEDICAL PRA TREATMENT SERV FOUNDATIO MANAGEMEN T 5 TREATMENT S RADJ DLVR 65253 [place] 3/> 0 MEDICAL PRA AREAS SERV CUSTOM FOUNDATIO BLKING 6-10MEV COMPREHEN 24359 NIKITA SHELTON SIVE 0 W W METABOLIC [facility] BASIC 99934 [place] RADIATION 0 MEDICAL PRA SERV DOSIMETRY FOUNDATIO CALCULATI ON TELETHERA 27637 [place] PY 0 MEDICAL PRA ISODOSE SERV PLAN FOUNDATIO COMPLETE COLLECTIO 48884 NIKITA SHELTON N VENOUS 0 W W BLOOD [facility] BLOOD 36537 NIKITA SHELTON COUNT 0 W W COMPLETE [facility] CENTER RADJ DLVR 91110 [place] 3/> 0 MEDICAL PRA AREAS SERV CUSTOM FOUNDATIO BLKING 6-10MEV RADJ DLVR 41094 [place] 3/> 0 MEDICAL PRA AREAS SERV CUSTOM FOUNDATIO BLKING 6-10MEV LARYNGOSC 32707 [place] OPY 0 MEDICAL , HANNAH FLEXIBLE SERV DIAGNOSTI FOUNDATIO C RADJ DLVR 38868 [place] 3/> 0 MEDICAL PRA AREAS SERV CUSTOM FOUNDATIO BLKING 6-10MEV RADJ DLVR 45325 [place] 3/> 0 MEDICAL PRA AREAS SERV CUSTOM FOUNDATIO BLKING 6-10MEV THERAPEUT 06545 [place] IC 0 MEDICAL PRA RADIOLOGY SERV PORT FOUNDATIO IMAGES(S) CONTINUIN 85408 [place] G MEDICAL 0 MEDICAL PRA PHYSICS SERV CONSLTJ FOUNDATIO AL WK RADJ DLVR 47426 [place] 3/> 0 MEDICAL PRA AREAS SERV CUSTOM FOUNDATIO BLKING 6-10MEV RADIATION 00620 [place] I[place] 0 MEDICAL PRA TREATMENT SERV FOUNDATIO MANAGEMEN T 5 TREATMENT S RADJ DLVR 12610 [place] 3/> 0 MEDICAL PRA AREAS SERV CUSTOM FOUNDATIO BLKING 6-10MEV RADJ DLVR 69550 [place] 3/> 0 MEDICAL PRA AREAS SERV CUSTOM FOUNDATIO BLKING 6-10MEV RADJ DLVR 07996 [place] 3/> 0 MEDICAL PRA AREAS SERV CUSTOM FOUNDATIO BLKING 6-10MEV RADJ DLVR 83999 [place] 3/> 0 MEDICAL PRA AREAS SERV CUSTOM FOUNDATIO BLKING 6-10MEV THERAPEUT 89404 [place] IC 0 MEDICAL PRA RADIOLOGY SERV PORT FOUNDATIO IMAGES(S) CONTINUIN 95316 [place] G MEDICAL 0 MEDICAL PRA PHYSICS SERV CONSLTJ FOUNDATIO AL WK RADIATION 44928 [place] I[place] 0 MEDICAL PRA TREATMENT SERV FOUNDATIO MANAGEMEN T 5 TREATMENT S RADJ DLVR 85229 [place] 3/> 0 MEDICAL PRA AREAS SERV CUSTOM FOUNDATIO BLKING 6-10MEV RADJ DLVR 06782 [place] 3/> 0 MEDICAL PRA AREAS SERV CUSTOM FOUNDATIO BLKING 6-10MEV RADJ DLVR 72988 [place] 3/> 0 MEDICAL PRA AREAS SERV CUSTOM FOUNDATIO BLKING 6-10MEV RADJ DLVR 63413 [place] 3/> 0 MEDICAL PRA AREAS SERV CUSTOM FOUNDATIO BLKING 6-10MEV RADJ DLVR 27502 [place] 3/> 0 MEDICAL PRA AREAS SERV CUSTOM FOUNDATIO BLKING 6-10[place] [address] [place] DEVICES 0 MEDICAL PRA DESIGN & SERV CONSTRUCT FOUNDATIO ION COMPLEX THER RAD 90448 [place] SIMULAJ-A 0 MEDICAL PRA IDED SERV FIELD FOUNDATIO SETTING SIMPLE RADIATION 42269 [place] 0 MEDICAL PRA TREATMENT SERV FOUNDATIO [place]EN T [address] [place] [address] [place] MOJGAN GUIDANCE 0 MEDICAL EDU RADIATION SERV THERAPY FOUNDATIO FLDS PLACEMENT CONTINUIN 96454 [place] G MEDICAL 0 MEDICAL PRA PHYSICS SERV CONSLTJ FOUNDATIO AL WK ANES 76475 [place] VITAL STEVIE ESOPH 0 MEDICAL THYRD SERVICES LARYNX TRACH & LYMPH NECK 1YR LARYNGOSC 71270 [place] OPY 0 MEDICAL CECILIA W/BIOPSY SERV MICROSCOP FOUNDATIO E/TELESCO PE EGD 89182 [place] CHRISTINA PERCUTANE 0 MEDICAL RICH OUS SERV PLACEMENT [place] [address] [place] HDZ SURG 0 MEDICAL VARGAS PATHOLOGY SERV FOUNDATIO GROSS&KAMILA ROSCOPIC EXAM L HRT 38288 [place] LINO CATHETERI 0 MEDICAL CALEB ZATION SERV RETROGRAD FOUNDATIO E BRACHIAL PERQ INJECTION 83667 [place] CARDIAC 0 MEDICAL CALEB CATHJ L SERV VENTR/L [place] [address] [place] C-CATHJ 0 MEDICAL CALEB F/SLCTV C SERV ANGRPH FOUNDATIO I SI&R 91304 [place] F/NJX PX 0 MEDICAL CALEB DURING SERV C-CATHJ FOUNDATIO VENTR&/AT R ANGRPH I SI&R 56672 TIFFANIE LINO F/NJX PX 0 MEDICAL CALEB DURING SERV C-CATHJ FOUNDATIO PULM&/OR SELECT ECG 34852 [facility] ROUTINE 0 Y Y ECG [facility] W/LEAST 12 LDS TRCG ONLY W/O I&R ECG 25385 TIFFANIE MOJICA ROUTINE 0 MEDICAL NAN ECG SERV W/LEAST FOUNDATIO 12 LDS I&R ONLY CT SOFT 22507 TIFFANIE AMATO TISSUE 0 MEDICAL JONATAN NECK SERV W/CONTRAS FOUNDATIO T MATERIAL CT THORAX 86370 [place] ATTILI 0 MEDICAL ANI W/CONTRAS SERV T FOUNDATIO MATERIAL COLLECTIO 85979 [facility] N VENOUS 0 Y Y BLOOD [facility] VENIPUNCT URE COMPREHEN 11368 [facility] SIVE 0 Y Y METABOLIC [facility] PANEL BLOOD 48235 [facility] COUNT 0 Y Y COMPLETE [facility] AUTOMATED PROTHROMB 23064 [facility] IN TIME 0 Y Y HOSPITAL [facility] THROMBOPL 83719 [facility] ASTIN 0 Y Y TIME [facility] PARTIAL PLASMA/[place] [address] [facility] FREE 0 Y Y THYROXINE [facility] [place] [address] [facility] THYROID 0 Y Y STIMULATI [facility] NG HORMONE TSH CT THORAX [address] [place] [address] JOAQUÍN S W/CONTRAS RADIOLOGY T MATERIAL ASSOCIATE S PSC ADMN SET A7003 YOUR YOUR SM VOL 8 PHARMACY PHARMACY NONFILTR [facility] PNEUMAT NEBULIZR DISPBL THER 36808 JESSIE ROMAN PROPH/DX 8 CO CO [facility] SUBQ/IM THER 56664 JESSIE ROMAN PROPH/DX 8 CO CO [facility] SUBQ/IM THER 93674 JESSIE ROMAN PROPH/DX 8 CO CO [facility] SUBQ/IM RADIOLOGI 26691 JESSIE ROMAN C EXAM 8 CO CO CHEST 2 [facility] VIEWS FRONTAL&L ATERAL O2 CONC 1 E1390 NAOMIE AKBAR [place] [address] HOME MED HOME MED 85%/>02 EQUIP. EQUIP. CONC AT [facility] FLW RATE O2 CONC 1 E1390 NAOMIE AKBAR [place] [address] HOME MED HOME MED 85%/>02 EQUIP. EQUIP. CONC AT [facility] FLW RATE O2 CONC 1 E1390 NAOMIE AKBAR [place] [address] HOME MED HOME MED 85%/>02 EQUIP. EQUIP. CONC AT [facility] FLW RATE LIPID 64804 [facility] PANEL 8 [facility] CYANOCOBA 45771 [facility] JENNY 8 [facility] VITAMIN B-12 COMPREHEN 62183 [facility] SIVE [address] [place] [address] [place] [address] [facility] THYROID [address] [place] [address] STIMULATI NG HORMONE TSH THER 54375 JESSIE ROMAN PROPH/DX 8 CO CO NJX [facility] SUBQ/IM ECG 94944 JESSIE ROMAN ROUTINE 8 CO CO ECG [facility] W/LEAST 12 LDS TRCG ONLY W/O I&R DEMO&/VINICIO 31027 JESSIE Velasco OF PT 8 CO OR UTILIZ [facility] AERSL GEN/NEB/I NHLR/[place] [address] JESSIE ROMAN WALL 8 [facility] FACILITAT [facility] E LNG FUNCJ 1 DEMO&/VINICIO L O2 CONC 1 E1390 NAOMIE AKBAR [place] [address] HOME MED HOME MED 85%/>02 EQUIP. EQUIP. CONC AT [facility] FLW RATE ADMN SET A7005 YOUR YOUR W/SM VOL 8 PHARMACY PHARMACY [facility] NEBULIZR NON-DISPB L O2 CONC 1 E1390 NAOMIE [place]BAR [place] [address] HOME MED HOME MED 85%/>02 EQUIP. EQUIP. CONC AT [facility] FLW RATE ADMN SET A7003 YOUR YOUR SM VOL 8 PHARMACY PHARMACY [facility] PNEUMAT NEBULIZR DISPBL O2 CONC 1 E1390 NAOMIE NAOMIE GORDON 8 HOME MED HOME MED 85%/>02 EQUIP. EQUIP. CONC AT [facility] FLW RATE Encounters Encounter Start End Date Code Location Performer Type Date HOSPITAL GOMEZ - 7 7 [facility] OUTPATIEN [facility] T OFFICE 08833 [facility] 7 7 PHYSICIAN T VISIT S GROUP 15 MINUTES EMERGENCY 67199 [facility] 7 7 [facility] HIGH SEVERITY& THREAT [facility] 7 7 [facility]OMEZ - 7 7 [facility] [address] [facility]PATIENT [facility] 7 7 [facility] EMERGENCY 48265 [facility] 7 [facility]GENC[facility] HIGH PHYS SEVERITY& THREAT [facility] 7 7 [facility] [place] [address] 7 [facility] T OFFICE 51051 [facility] 7 7 PHYSICIAN T VISIT S GROUP 15 MINUTES [facility] GOMEZ - 7 7 [facility] OUTPATIEN [facility] T OFFICE 05630 [facility] 7 7 MEM HOS[facility] T [facility]ISIT INC 10 MINUTES HOSPITAL GOME[facility] - 7 7 [facility] T OFFICE 95759 [facility] 7 7 MD SUNNY, T VISIT PSC 15 MINUTES OFFICE 55244 [facility] 7 7 PHYSICIAN T VISIT S GROUP 15 MINUTES HOSPITAL GOME[facility] - 7 7 [facility] OUTPATIEN [facility] [place] [facility] 7 7 [facility] T EMERGENCY 89231 [place] [facility] VISIT HIGH/URGE NT SEVERITY EMERGENCY 41817 [place] 7 [facility] T VISIT HIGH/URGE NT SEVERITY [facility] [place] [facility] 7 7 [facility] T EMERGENC[facility] 69644 [facility] 7 DESIRE VISIT EMERGENCY HIGH PHYS SEVERITY& THREAT [facility] GOMEZ - 7 7 [facility] OUTPATIEN INC T OFFICE 14953 [facility] OUTPATIEN 7 7 PHYSICIAN T VISIT S GROUP 15 MINUTES HOSPITAL [facility] - 7 7 [facility] OUTPATIEN INC T OFFICE 12137 [facility] OUTPATIEN 7 7 PHYSICIAN T VISIT S GROUP 25 MINUTES HOSPITAL [facility] - 7 7 [facility] OUTPATIEN INC T OFFICE 28072 [facility] 7 7 [facility] T VISIT INC 10 MINUTES HOSPITAL [facility] - 7 7 [facility] OUTPATIEN INC T OFFICE 02007 [facility] [place] OUTPATIEN 7 7 PHYSICIAN T VISIT S GROUP 25 MINUTES HOSPITAL [facility] - 7 7 [facility] OUTPATIEN INC T OFFICE 97076 [facility] 7 7 [facility] T VISIT INC 10 MINUTES OFFICE 90702 [facility] 7 7 MD SUNNY, T VISIT PSC 15 MINUTES HOSPITAL [facility] - 7 7 [facility] OUTPATI[facility] INC T OFFICE 57416 [facility] [place] OUTPATIEN 6 6 PHYSICIAN T VISIT S GROUP 15 MINUTES HOSPITAL [facility] - 6 6 [facility] OUTPATIEN INC T OFFICE 58502 [facility] OUTPATIEN 6 6 PHYSICIAN KAMILA T VISIT S GROUP 15 MINUTES HOSPITAL [facility] - 6 6 [facility]PATIEN [facility] OFFICE 34959 ALONDRA CORREA AN OUTPATIEN 6 6 MD T VISIT 10 MINUTES HOSPITAL [facility] - 6 6 [facility]EN [facility] GOMEZ - 6 6 [facility] OUTPATIEN [facility] OFFICE 51849 [facility] OUTPATIEN 6 6 PHYSICIAN KAMILA T VISIT S GROUP 25 MINUTES OFFICE 28945 [facility] OUTPATIEN 6 6 PHYSICIAN KAMILA T VISIT S GROUP 15 MINUTES HOSPITAL [facility] - 6 6 [facility]PATIEN [facility] GOMEZ - 6 6 [facility]PATI[facility] OFFICE 98876 [facility] 6 6 [facility] T [facility] 10 INC [facility] [place] [facility] 6 [facility] T OFFICE 84115 [facility] 6 PHYSICIAN KAMILA T VISIT S GROUP 15 MINUTES OFFICE 49447 [facility] 6 6 Y MEDICAL [facility] T VISIT CLINIC 15 MINUTES HOSPITAL GOME[facility] - 6 6 [facility] CURRIE - 6 6 [facility] EMER[facility]ENC[facility] 50317 [facility] 6 6 [facility] HIGH SEVERITY& THREAT [facility] OFFICE 80310 [facility] OUTPATIEN 6 6 PHYSICIAN KAMILA T VISIT S GROUP 15 MINUTES HOSPITAL GOMEZ - 6 6 [facility]RIE - 6 6 [facility]IVERS[facility] - 6 6 Y [facility] T OFFICE 03953 [facility] 6 6 Y T VISIT 5 [facility] GOMEZ - 6 6 [facility] [place] [facility] 6 6 [facility] GOMEZ [facility] 6 6 [facility] [place] [facility] 6 6 [facility] 16257 [facility] 6 6 PHYSICIAN KAMILA T VISIT S GROUP 15 MINUTES HOME [place] [address] 6 MEDICAL INPATIENT CENTER [facility] OFFICE 66237 [facility] 6 6 PHYSICIAN KAMILA T VISIT S GROUP 15 MINUTES HOME [facility] 6 6 [facility]PAT[facility]ENTER [facility] OFFICE 97471 [facility] 6 6 Y T [facility]ISIT 5 [facility] OFF[facility] 96192 [facility] 6 6 Y T VISIT 5 [facility] 6 6 [facility] T OFFICE 05816 [facility] 6 6 PHYSICIAN [facility]AM[facility]A T [facility]ISIT S GROUP 15 MINUTES [facility] [place] - 6 6 [facility] [place] [id number] 6 [facility] INPATIENT CENTER [facility] EMERGENCY [id number] DALILA SNYDEREY DEPT 6 6 PHYSICIAN KAMILA VISIT S, PLLC HIGH SEVERITY& THREAT FUN EMERGENCY 63874 [facility] DEPT 6 6 DESIRE NGOZI VISIT EMERGENCY HIGH PHYS SEVERITY& THREAT FUNCJ OFFICE 04514 [facility] [place] OUTPATIEN 6 6 PHYSICIAN KAMILA T VISIT S GROUP 15 MINUTES [facility]OSP[facility] - 6 6 [facility] T EMERGENCY 02621 [facility] 6 6 DESIRE DEPARTMEN EMERGENCY T VISIT PHYS MODERATE SEVERITY OFFICE 07248 [facility] [place] OUTPATI[facility] 6 6 PHYSICIAN KAMILA T VISIT S GROUP 15 MINUTES [facility] - 6 6 [facility] 6 6 [facility] - 6 6 [facility] T OFFICE 29379 [facility] [place] OUTPATI[facility] 6 6 PHYSICIAN KAM[facility]A T VISIT S GROUP 15 MINUTES OFFICE 84072 [facility] OUTPATIEN 5 5 PHYSICIAN KAM[facility]A T VISIT S GROUP 10 MINUTES OFFICE 78336 [facility] OUTPATIEN 5 5 Y MEDICAL MU T VISIT CLINIC 15 MINUTES OFFICE 43620 [facility] OUTPATI[facility] 5 5 CULAR MAT T VISIT CONSULTAN 25 TS O MINUTES [facility] - 5 5 [facility] T OFFICE 10396 [facility] [place] OUTPATI[facility] 5 5 PHYSICIAN KAM[facility]A T VISIT S GROUP 15 MINUTES OFFICE 58301 [facility] OUTPATIEN 5 5 [facility] T VISIT HOSPITAL 15 MINUTES HOSPITAL [facility] - 5 5 [facility] EMERGENC[facility] 63559 [facility] 5 5 DESIRE MAR VISIT EMERGENCY HIGH PHYS SEVERITY& THREAT FUNCJ OFFICE 13098 [facility] OUTPATI[facility] 5 5 PHYSICIAN [facility] T VISIT S GROUP 10 MINUTES [facility] - 5 5 [facility] T OFFICE 92789 [facility]PAT[facility] 5 5 CULAR MAT T VISIT CONSULTAN 25 TS O MINUTES [facility]OSPITAL [facility] - 5 5 [facility] T OFFICE 13369 [facility]PAT[facility] 5 5 CULAR MAT T [facility]ISIT CONSULTAN 40 TS O MINUTES [facility]OSP[facility] - 5 5 [facility] T OFFICE 13592 [facility] OUTPATIEN 5 5 PHYSICIAN [facility]A T VISIT S GROUP 15 MINUTES OFFICE 17873 [facility] OUTPATIEN 5 5 CULAR MAT T VISIT CONSULTAN 25 TS O MINUTES [facility] - 5 5 [facility] OUTPATIEN [facility] GOMEZ [facility] 5 5 [facility] OUTPATIEN [facility] 5 5 [facility]EN [facility] T OFFICE 73353 [facility] 5 5 PHYSICIAN KAMILA T VISIT S GROUP 10 MINUTES HOSPITAL GOMEZ - 5 5 [facility] OUTPATIEN [facility] T OFFICE 43664 CARDIOVAS BRITANY OUTPATIEN 5 5 CULAR MAT T VISIT CONSULTAN 40 TS O MINUTES OFFICE 70890 [facility] FRANCISCO OUTPATIEN 5 5 PHYSICIAN KAMILA T VISIT S GROUP 15 MINUTES OFFICE 29754 CARDIOVAS BRITANY OUTPATIEN 5 5 CULAR MAT T VISIT CONSULTAN 25 TS O MINUTES HOSPITAL GOMEZ - 5 5 [facility] T OFFICE 75491 [facility] FRANCISCO OUTPATIEN 5 5 PHYSICIAN KAMILA T VISIT S GROUP 15 MINUTES HOSPITAL NIKITA - 5 5 [facility]ICAL EMERGENCY 92720 MEADOWVIE DEPT 5 5 W VISIT REGIONAL HIGH MEDICAL SEVERITY& THREAT FUNCJ OFFICE 24976 [facility] FRANCISCO OUTPATIEN 5 5 PHYSICIAN KAMILA T VISIT S GROUP 15 MINUTES HOSPITAL [facility] - 5 5 HOSPITAL INPATIENT OFFICE 00582 MAHESH FERRER OUTPATIEN 5 5 [facility] HAM T NEW 45 MEDICAL MINUTES G OFFICE 09486 [facility] FRANCISCO OUTPATIEN 5 5 PHYSICIAN KAMILA T VISIT S GROUP 15 MINUTES OFFICE 23198 CARDIOVAS BLACK JAZZMINE OUTPATIEN 5 5 CULAR T NEW 60 CONSULTAN MINUTES [facility] MEADOWVIE - 5 5 W OUTPATIEN REGIONAL T MEDICAL OFFICE 90094 [facility] FRANCISCO OUTPATIEN 5 5 PHYSICIAN KAMILA T VISIT S GROUP 15 MINUTES HOSPITAL CURRIE - OTHER 5 5 [facility] GOMEZ - 5 5 [facility]PATIEN INC T OFFICE 25531 [facility] FRANCISCO OUTPATIEN 5 5 PHYSICIAN KAMILA T VISIT S GROUP 15 MINUTES OFFICE 02629 [facility] FRANCISCO OUTPATIEN 5 5 PHYSICIAN KAMILA T VISIT S GROUP 25 MINUTES EMERGENCY 88668 [facility] 5 5 [facility] EMERGENCY T VISIT PHYS HIGH/URGE NT SEVERITY EMERGENCY 70359 CURRIE 5 5 CO [facility] HOSPITAL T VISIT MODERATE SEVERITY HOSPITAL CURRIE - 5 5 [facility] T OFFICE 13546 [facility] FRANCISCO OUTPATIEN 5 5 PHYSICIAN KAMILA T NEW 20 S GROUP MINUTES OFFICE 29163 [facility] ESPOSITO OUTPATIEN 5 5 CLINIC HEN T VISIT 15 MINUTES [facility] UNIVERSIT - 5 5 Y [facility] T OFFICE 83036 [place] [facility] OUTPATIEN 5 5 MEDICAL CECILIA T VISIT SERV 15 FOUNDATIO MINUTES N OFFICE 37599 UNIVERSIT OUTPATIEN 5 5 Y T VISIT HOSPITAL 10 MINUTES OFFICE 99372 [facility] VAIBHAV OUTPATIEN 4 4 CLINIC HEN T VISIT 15 MINUTES OFFICE 76080 [facility] VAIBHAV OUTPATIEN 4 4 CLINIC HEN T VISIT 15 MINUTES OFFICE 89073 [facility] SANTOSH OUTPATIEN 4 4 CECILIA CECILIA T VISIT 15 MINUTES OFFICE 08363 UNIVERSIT OUTPATIEN 4 4 Y T VISIT HOSPITAL 10 MINUTES HOSPITAL UNIVERSIT - 4 4 Y OUTPATIEN HOSPITAL T OFFICE 86014 [facility] DIEGOSON OUTPATIEN 4 4 CLINIC NHI T VISIT 25 MINUTES OFFICE 55913 [facility] VAIBHAV OUTPATIEN 4 4 CLINIC HEN T VISIT 15 MINUTES OFFICE 38719 [facility] OUTPATIEN 4 4 CLINIC T VISIT 25 MINUTES OFFICE 94776 [facility] HUTCHINS- OUTPATIEN 4 4 CLINIC SE YOSVANY T VISIT 25 MINUTES OFFICE 70001 S[facility] SANTOSH OUTPATIEN 4 4 CECILIA CECILIA T VISIT 15 MINUTES [facility] - 3 3 MRP CONTROLLER OUTPATIEN JESSIE T CO HOS OFFICE 01820 [facility] [place] OUTPATIEN 3 3 CECILIA CECILIA T VISIT 25 MINUTES OFFICE 66062 DEBORAHARETrever LEESN OUTPATIEN 3 3 Apr T VISIT 25 MINUTES OFFICE 24414 DEBORAHARETrever CABRERAAREN OUTPATIEN 3 3 Apr T VISIT 25 MINUTES OFFICE 05116 DEBORAHARETrever ARAGON OUTPATIEN 3 3 Apr T VISIT 25 MINUTES OFFICE 97974 UNIVERSIT OUTPATIEN 3 3 Y T VISIT HOSPITAL 25 MINUTES OFFICE 94045 [facility] BERNABEO OUTPATIEN 3 3 CECILIA CECILIA T VISIT 15 MINUTES HOSPITAL UNIVERSIT - 3 3 Y [facility] T OFFICE 49481 MARGO CABRERASTIVEN OUTPATIEN 2 2 Apr T VISIT 25 MINUTES OFFICE 56295 [facility] SANTOSH OUTPATIEN 2 2 CECILIA CECILIA T VISIT 15 MINUTES OFFICE 63962 [facility] CABRERASTIVEN OUTPATIEN 2 2 Apr T VISIT 25 MINUTES OFFICE 55865 [facility] CABRERASTIVEN OUTPATIEN 2 2 Apr T VISIT 15 MINUTES HOSPITAL [facility], - 2 2 MRP CONTROLLER [facility] UNIVERSIT - 2 2 Y [facility] T OFFICE 56690 MARGO CABRERASTIVEN OUTPATIEN 2 2 Apr T VISIT 15 MINUTES OFFICE 82655 [facility] CABRERASTIVEN OUTPATIEN 2 2 Apr T VISIT 25 MINUTES OFFICE 99860 [facility] BERNABEO OUTPATIEN 2 2 CECILIA CECILIA T VISIT 15 MINUTES HOSPITAL UNIVERSIT - [address] [facility] - 2 2 [facility] 2 MRP CONTR[facility] [place] OFFICE 44924 NABEELTrever [place] OUTPATIEN 2 2 Apr T VISIT 25 MINUTES OFFICE 39311 NABEELTrever DEBORAHSTIVEN OUTPATIEN 2 2 Apr T VISIT 15 MINUTES HOSPITAL UNIVERSIT - 2 2 Y [facility] T OFFICE 24833 JHONATHAN SNYDER OUTPATIEN 2 2 T VISIT 15 MINUTES OFFICE 51167 [facility] Apr T VISIT 25 MINUTES HOSPITAL JESSIE - 2 2 [facility] T OFFICE 01271 MAR[facility] ARAGON OUTPATIEN 1 1 Apr T VISIT 25 MINUTES HOSPITAL UNIVERSIT - 1 1 Y [facility] T OFFICE 14392 [facility]OST [facility] 1 1 CECILIA CECILIA T VISIT 15 MINUTES OFFICE 42595 ROCCONICHOLE VALIENTE [facility] 1 1 GRE [facility] T ABRAZO [facility] 45 MINUTES [facility] JESSIE - 1 1 [facility] T OFFICE 87075 MARGO LEESTrever [facility] 1 1 Apr T VISIT 15 MINUTES HOSPITAL JESSIE [facility] 1 1 [facility] T OFFICE 17547 [facility]CHO LEESTrever [facility] 1 1 CLINIC APR T VISIT PSC 25 MINUTES OFFICE 17185 TIFFANIE [facility] 1 1 MEDICAL CECILIA T VISIT SERV 15 FOUNDATIO MINUTES [facility] UNIVERSIT - 1 1 [facility] T OFFICE 98587 ALLRAN JR ALLRAN JR CONSULTAT 1 1 CALEB CALEB ION NEW/ESTAB PATIENT 40 MIN OFFICE 31579 [facility] ARAGON OUTPATIEN 1 1 CLINIC APR T VISIT PSC 15 MINUTES OFFICE 73533 [facility] DEBORAHSTIVEN OUTPATIEN 1 1 CLINIC CECILIA T VISIT [facility] 25 MINUTES HOSPITAL SERGIOWVIE - 1 1 W [facility] T MEDICAL OFFICE 96845 ONCOLOGY JAJA CHR OUTPATIEN 1 1 HEMATOLOG T VISIT Y CARE IN 25 MINUTES OFFICE 47662 TIFFANIE COATESReji OCTAVIANO OUTPATIEN 1 1 MEDICAL T VISIT SERV 25 [facility] MEADOWVIE - 1 1 W [facility] T MEDICAL OFFICE 92275 ONCOLOGY SIGMUND OUTPATIEN 1 1 HEMATOLOG ADOLFO T VISIT Y CARE IN 15 MINUTES OFFICE 11241 [facility] DEBORAHAREN OUTPATIEN 1 1 CLINIC CECILIA T VISIT PSC 15 MINUTES HOSPITAL JESSIE - 1 1 [facility] T OFFICE 79800 CHENCHODOTTIE LEESTrever OUTPATIEN 1 1 CLINIC CECILIA T VISIT PSC 25 MINUTES OFFICE 47862 [facility] NABEELTrever OUTPATIEN 1 1 CLINIC CECILIA T VISIT PSC 15 MINUTES OFFICE 05180 TIFFANIE BONDSANTOSH OUTPATIEN 1 1 MEDICAL CECILIA T VISIT SERV 15 [facility] UNIVERSIT - 1 1 Y [facility] T OFFICE 48455 ONCOLOGY JAJA CHR OUTPATIEN 1 1 HEMATOLOG T VISIT Y CARE IN 15 MINUTES HOSPITAL MEAWVIE - 1 1 W [facility] HOSPITAL CURRIE - 1 1 [facility] T OFFICE 66206 MARKUSALDINI MARKUSALDINI OUTPATIEN 1 1 ETHAN ETHAN T VISIT 15 MINUTES OFFICE 22144 TIFFANIE SANTOSH OUTPATIEN 1 1 MEDICAL CECILIA T VISIT SERV 15 [facility] CURRIE - 1 1 [facility] MEADOWVIE - 0 0 W [facility] T MEDICAL OFFICE 44284 RINALDINI RINALDINI OUTPATIEN 0 0 ETHAN ETHAN T VISIT 15 MINUTES HOSPITAL CURRIE - 0 0 CO [facility] T HOSPITAL CURRIE - 0 0 CO [facility] T [facility] MEADOWVIE [facility] 0 0 W [facility] T MEDICAL OFFICE 95095 TIFFANIE INA [facility] 0 0 MEDICAL PRA T VISIT SERV [address] [facility] CURRIE - 0 0 CO [facility] T OFFICE 23100 RINALDINI RINALDINI [facility] 0 0 ETHAN ETHAN T VISIT 15 MINUTES HOSPITAL JESSIE - 0 0 CO [facility] T EMERGENCY 02282 JESSIE 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 0 0 CO Y VISIT HOSPITAL CORPORATI HIGH ON OF AM SEVERITY& THREAT FUNCJ OFFICE 84294 RINALDINI RINALDINI OUTPATIEN 0 0 ETHAN ETHAN T VISIT 25 MINUTES HOSPITAL CURRIE - 0 0 CO [facility] T [facility] CURRIE - [address] [facility] MEADOWVIE - 0 0 W [facility] T MEDICAL OFFICE 86881 MARKUSALDINI RINALDINI OUTPATIEN 0 0 ETHAN ETHAN T VISIT 25 MINUTES EMERGENCY 52981 JESSIE 0 0 CO [facility] HOSPITAL T VISIT LOW/MODER SEVERITY EMERGENCY 24240 RINALDINI RINALDINI 0 0 ETHAN ETHAN [facility] T VISIT MODERATE SEVERITY HOSPITAL JESSIE - [address] [facility] UNIVERSIT - 0 0 Y [facility] T [facility] UNIVERSIT [facility] 0 0 Y [facility] T OFFICE 62930 [place] [facility] OUTPATIEN 0 0 MEDICAL CECILIA T VISIT SERV [address] [facility] CURRIE - 0 0 [facility], 0 0 [facility] JESSIE - 0 0 CO [facility] T OFFICE 74988 JESSIE OUTPATIEN 0 0 CO T VISIT 5 [facility] OFFICE 85221 JESSIE OUTPATIEN 0 0 CO T VISIT 5 [facility] JESS[facility] - 0 0 [facility] T [facility] JESSIE - 0 0 [facility] T OFFICE 22017 JESSIE OUTPATIEN 0 0 CO T VISIT 5 [facility] EMERGENCY 61238 JESSIE 0 0 [facility] T VISIT LIMITED/M INOR PROB EMERGENCY 60060 RINALDINI RINALDINI 0 0 , ETHAN GAXIOLA [facility] T VISIT HIGH/URGE NT SEVERITY [facility] JESSIE - 0 0 [facility] T OFFICE 38260 NATALIEINI MARKUSALDINI OUTPATIEN 0 0 , ETHAN GAXIOLA T VISIT 10 MINUTES [facility] MEADOWVIE - 0 0 W [facility] OFFICE 25709 ONCOLOGY JAJA, OUTPATIEN 0 0 HEMATOLOG BRITTANY M T VISIT Y CARE 15 INC MINUTES [facility] CURRIE - 0 0 [facility] 0 [facility] JESSIE - 0 0 CO INPATIENT HOSPITAL HOSPITAL JESSIE - 0 0 [facility] T EMERGENCY 89916 JESSIE 0 0 CO [facility] T VISIT LOW/MODER SEVERITY EMERGENCY 96090 JESSIE GR 0 0 CO , MINOR [facility] T VISIT LIMITED/M INOR [facility] JESSIE - [address] [facility] MEADOWVIE - 0 0 W [facility] OFFICE 85735 ONCOLOGY JAJA, OUTLAKE [facility] 0 0 HEMATOLOG BRITTANY Virgen T VISIT Y CARE 25 INC MINUTES [facility] 0 0 [facility] T OFFICE 20291 RINCESARINI RINALDINI OUTPATIEN 0 0 , MINOR , MINOR T VISIT 25 MINUTES OFFICE 51599 RINALDINI RINALDINI OUTPATIEN 0 0 , MINOR , MINOR T VISIT 15 MINUTES OFFICE 19498 [place] [facility] OUTPATIEN 0 0 MEDICAL , HANNAH T VISIT SERV 15 FOUNDATIO MINUTES OFFICE 95371 RINALDINI RINALDINI OUTPATIEN 0 0 , MINOR , MINOR T VISIT 15 MINUTES [facility] MEADOWVIE - 0 0 W [facility] OFFICE 59414 [place] INA CONSULTAT 0 0 MEDICAL PRA ION SERV NEW/ESTAB FOUNDATIO PATIENT 30 MIN HOSPITAL UNIVERSIT - 0 0 Y [facility] T OFFICE 82988 [place] [facility] OUTPATIEN 0 0 MEDICAL CECILIA T VISIT SERV 25 FOUNDATIO MINUTES OFFICE 92710 [place] [facility] CONSULTAT 0 0 MEDICAL CECILIA ION SERV NEW/ESTAB FOUNDATIO PATIENT 80 MIN [facility] UNIVERSIT [facility] [address] [facility] JESSIE - 8 8 CO [facility] T OFFICE 33984 [facility] 8 8 CO T VISIT 5 HOSPITAL MINUTES OFFICE 54687 [facility] 8 8 CO T VISIT 5 [facility] JESSIE [facility] 8 8 CO [facility] T OFFICE 36870 [facility] 8 8 CO T VISIT 5 [facility] JESSIE - 8 8 CO [facility] T HOSPITAL JESSIE [facility] 8 8 CO [facility] T EMERGENCY 61217 [facility] 8 8 CO [facility] T VISIT LIMITED/M INOR PROB OFFICE 54566 [facility]CHO ARAGON [facility] 8 8 CLINIC [facility] 20 [facility] JESSIE - 8 8 CO [facility] T OFFICE 00346 MAILE ESTRADAINI [facility] 8 8 , ETHAN GAXIOLA M T VISIT 5 MINUTES OFFICE 11721 NATALIEINI NATALIEINI [facility] 8 8 , ETHAN GAXIOLA M T VISIT 5 MINUTES HOSPITAL JESSIE - 8 8 [facility] T OFFICE 66161 NATALIEINI NATALIEINI OUTPATIEN 8 8 , MINOR ETHAN M T VISIT 5 MINUTES OFFICE 85121 NATALIEINI MARKUSALDINI [facility] 8 , ETHAN GAXIOLA M T VISIT 5 MINUTES
--- OUTSIDE RECORDS SUMMARY | 2017-02-06 00:57 | External Medical Summary Rpt | CCD ---
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 IT /M L GARCIA SP NE 00 09 09 1 30 30 SO 35 No Ac XI 18 -2 -2 .0 PE 32 t ti UM 65 RS 71 Av ve [address] 03 10 10 FA la 1 NJ bl [address] UG CA PS UL E 00 09 09 0 23 26 SO 35 No Ac 12 -2 -2 65 PE 25 t ti 10 1- 1- .0 RS 91 Av ve 65 20 20 00 ai 51 10 10 FA la 6 NJ bl LY e DR UG GARCIA 00 09 09 0 30 15 SO 35 No Ac LF 60 -2 -2 .0 PE 25 t ti AM 35 RS 92 Av ve ET 78 20 20 ai HO 12 10 10 FA la XA 8 NJ bl ZO LY e LE -T DR MP UG DS TA BL ET LI 50 09 09 0 10 5 SO 35 No Ac DO 38 -2 -2 0. PE 25 t ti CA 30 1 RS 93 Av ve IN 77 20 20 0 ai E 50 10 10 FA la 2% 4 NJ bl LY e SC DR OU UG S SO LN 00 08 09 5 12 30 SO 34 CO Ac 59 -0 -1 0. PE 89 ME ti 12 6- 3- 00 RS 35 R ve 22 20 20 0 BR 90 10 10 FA ET 5 NJ T LY T DR UG PI 00 08 09 5 90 30 SO 34 CO Ac LO 11 -0 -1 .0 PE 89 ME ti CA 55 6- 3- 00 RS 36 R ve RP 92 20 20 BR IN 20 10 10 FA ET E 1 NJ T HC LY T L 5 DR MG UG TA BL ET 00 08 08 0 30 3 SO 34 No Ac 12 -1 -1 0. PE 96 t ti 10 7- 7- 00 RS 80 Av ve 65 20 20 0 ai 51 10 10 FA la 6 NJ bl LY e DR UG 00 08 08 5 12 30 SO 34 CO Ac 59 -0 -0 0. PE 89 ME ti 12 6- 6- 00 RS 35 R ve 22 20 20 0 BR 90 10 10 FA ET 5 NJ T LY T DR UG PI 00 08 08 5 90 30 SO 34 CO Ac LO 11 -0 -0 .0 PE 89 ME ti CA 55 6- 6- 00 RS 36 R ve RP 92 20 20 BR IN 20 10 10 FA ET E 1 NJ T HC LY T L 5 DR MG UG TA BL ET PE 00 07 08 1 59 1 SO 34 No Ac RM 47 -1 -0 .0 PE 73 t ti ET 25 9- 5- 00 RS 87 Av ve HR 24 20 20 ai IN 26 10 10 FA la 7 NJ bl 1% LY e LO DR TI UG ON FL 00 08 08 0 5. 5 SO 34 No Ac UC 17 -0 -0 00 PE 87 t ti ON 25 5- 5- 0 RS 61 Av ve AZ 41 20 20 ai OL 21 10 10 FA la E 1 NJ bl 15 LY e [address] UG TA BL ET WY 60 07 08 5 50 16 WA 74 WY Ac OM 43 -2 -0 0. L- 79 AB ti ET 20 7- 2- 00 MA 88 HU ve VEGA 60 20 20 0 RT 5 ZI 81 10 10 WY NE 6 PH AM AR OD 6. MA V 25 CY # MG /5 10 15 ML 69 SY RP AM 00 07 07 0 28 9 SO 34 No Ac OX 78 -2 -2 .0 PE 81 t ti -C 11 8- 8- 00 RS 22 Av ve LA 83 20 20 ai V 12 10 10 FA la 50 0 NJ bl 0- LY e [address] MG UG TA BL ET WY 00 07 07 1 12 30 WA [...] IN 26 10 10 FA la 7 NJ bl 1% LY e LO DR TI [...] 0 14 7 WA 74 SA Ac WY 37 -0 -0 .0 L- 77 PP [...] MA M CY # 10 15 69 WY 00 04 06 5 30 5 WA 74 SA Ac OC 78 -3 -2 .0 L- 66 PP ti HL 15 0- 5- 00 MA 40 ve OR 02 20 20 RT 8 CH PE 10 10 10 RI RA [address] ZI AR Y NE MA M CY 10 # MG 10 15 TA 69 B WY 00 06 06 1 30 30 WA [...] 06 06 3 14 14 WA 74 WY Ac UC 09 -1 -1 0. L- 73 AB ti ON 35 4- 4- 00 MA 39 HU ve AZ 41 20 20 0 RT 8 OL 49 10 10 WY E 5 PH AM 10 AR OD MA V MG CY /M # L GARCIA 10 SP 15 69 00 06 06 5 24 12 WA 74 WY Ac 09 -0 -0 0. L- 72 AB ti 39 7- 7- 00 MA 24 HU ve 63 20 20 0 RT 1 48 10 10 WY 7 PH AM AR OD MA V CY # 10 15 69 WY 00 04 06 5 30 5 WA [...] 06 06 5 40 30 WA 74 WY Ac LV 59 -0 -0 0. L- 71 AB ti ER 10 1- 2- 00 MA 39 HU ve 81 20 20 0 RT 7 GARCIA 04 10 10 WY LF 6 PH AM AD AR OD IA MA V ZI CY NE # 1% 10 15 CR 69 EA M GARCIA 00 08 08 00 20 10 SO 29 No Ac LF 60 -1 -2 .0 PE 05 t ti AM 35 2- 8- 00 RS 67 Av ve ET 78 20 20 ai HO 12 08 08 FA la XA 8 NJ bl ZO LY e LE -T DR MP UG DS TA BL ET LI 00 10 08 01 30 30 SO 26 No Ac PI 07 -2 -2 .0 PE 59 t ti TO 10 9- 8- 00 RS 29 Av ve R 15 20 20 ai 40 72 07 08 FA la 3 NJ bl MG LY e TA DR BL UG ET WY 37 07 08 01 56 28 SO 28 No Ac IL 00 -0 -2 .0 PE 78 t ti OS 00 7- 8- 00 RS 89 Av ve EC 45 20 20 ai 50 08 08 FA la OT 4 NJ bl C LY e [address] UG MG TA BL ET 15 08 08 00 20 10 SO 29 No Ac 68 -2 -2 .0 PE 14 t ti 60 2- 8- 00 RS 39 Av ve 10 20 20 ai 20 08 08 FA la 5 NJ bl LY e DR UG FL 60 08 08 00 16 7 SO 29 No Ac UT 50 -1 -2 .0 PE 08 t ti IC 50 4- 8- 00 RS 07 Av ve 82 20 20 ai ON 90 08 08 FA la E 1 NJ bl WY LY e OP DR 50 UG MC [...] ai 83 08 08 FA la 2 NJ bl LY e DR UG 00 08 08 00 20 4 SO 29 No Ac 59 -1 -2 .0 PE 06 t ti 10 3- 8- 00 RS 85 Av ve 34 20 20 ai 90 08 08 FA la 5 NJ bl LY e DR UG 00 08 08 00 80 10 SO 29 No Ac 78 -1 -2 .0 PE 06 t ti 12 3- 8- 00 RS 84 Av ve 11 20 20 ai 20 08 08 FA la 1 NJ bl LY e DR UG 00 08 08 00 21 6 SO 29 No Ac 55 -1 -2 .0 PE 08 t ti 50 4- 8- 00 RS 08 Av ve 30 20 20 ai 13 08 08 FA la 8 NJ bl LY e DR UG PE 45 07 08 00 60 1 SO 28 No Ac RM 80 -1 -0 .0 PE 86 t ti ET 20 6- 1- 00 RS 97 Av ve HR 26 20 20 ai IN 93 08 08 FA la 7 NJ bl 5% LY e CR DR EA [...] 40 72 07 08 FA la 3 NJ bl MG LY e TA DR BL UG ET WY 37 07 07 00 56 28 SO 28 No Ac IL 00 -0 -1 .0 PE 78 t ti OS 00 7- 7- 00 RS 89 Av ve EC 45 20 20 ai 50 08 08 FA la OT 4 NJ bl C LY e [address] UG MG TA BL ET TH 50 04 07 03 60 30 SO 28 No Ac EO 11 -0 -1 .0 PE 10 t ti PH 10 8- 7- 00 RS 88 Av ve YL 48 20 20 ai LI 20 08 08 FA la NE 2 NJ bl LY e ER DR 20 UG 0 MG TA BL ET AM 00 06 07 00 30 30 SO 28 No Ac IT 78 -2 -0 .0 PE 69 t ti RI 11 3- 3- 00 RS 84 Av ve PT 48 20 20 ai YL 71 08 08 FA la IN 0 NJ bl E LY e HC L DR 25 UG MG TA B TR 65 06 07 00 90 30 SO 28 No Ac AM 16 -2 -0 .0 PE 69 t ti AD 20 3- 3- 00 RS 86 Av ve OL 62 20 20 ai 75 08 08 FA la HC 0 NJ bl L LY e 50 DR MG [...] 40 72 08 08 FA la 3 NJ bl MG LY e TA DR BL UG ET WY 37 03 06 02 56 28 SO 28 No Ac IL 00 -2 -1 .0 PE 02 t ti OS 00 7- 2- 00 RS 17 Av ve EC 35 20 20 ai 90 08 08 FA la OT 7 NJ bl C LY e [address] UG MG TA BL ET TH 50 04 06 02 60 30 SO 28 No Ac EO 11 -0 -1 .0 PE 10 t ti PH 10 8- 2- 00 RS 88 Av ve YL 48 20 20 ai LI 20 08 08 FA la NE 2 NJ bl LY e ER DR 20 UG 0 MG TA BL ET 66 01 06 02 30 30 YO 15 No Ac 79 -2 -0 0. UR 36 t ti 40 8- 5- 00 1 Av ve 00 20 20 0 PH ai 26 08 08 AR la 0 MA bl CY e WY 37 03 05 01 56 28 SO 28 No Ac IL 00 -2 -2 .0 PE 02 t ti OS 00 7- 2 00 RS 17 Av ve EC 45 20 20 ai 50 08 08 FA la OT 3 NJ bl C LY e [address] UG MG TA BL ET LI 00 02 05 02 30 30 SO 27 No Ac PI 07 -2 -2 .0 PE 67 t ti TO 10 1 2 RS 83 Av ve R 15 20 20 ai 40 72 08 08 FA la 3 NJ bl MG LY e TA DR BL UG ET TH 50 04 05 01 60 30 SO 28 No Ac EO 11 -0 -2 .0 PE 10 t ti PH 10 8- 2- 00 RS 88 Av ve YL 48 20 20 ai LI 20 08 08 FA la NE 2 NJ bl LY e ER DR 20 UG 0 MG TA BL ET BE 68 04 04 00 20 20 SO 28 No Ac NZ 38 -0 -2 .0 PE 10 t ti ON 20 8- 4- 00 RS 89 Av ve AT 24 20 20 ai AT 80 08 08 FA la E 1 NJ bl 20 LY e [address] UG CA PS UL E 63 04 04 00 12 30 SO 28 No Ac 82 -0 -2 0. PE 10 t ti 40 8- 4- 00 RS 87 Av ve 00 20 20 0 ai 81 08 08 FA la 0 NJ bl LY e DR UG AZ 00 04 04 00 6. 5 SO 28 No Ac IT 78 -0 -2 00 PE 10 t ti HR 11 8- 4- 0 RS 86 Av ve OM 49 20 20 ai YC 66 08 08 FA la IN 8 NJ bl LY e [address] MG UG TA BL ET 00 04 04 00 21 6 SO 28 No Ac 55 -0 -2 .0 PE 10 t ti 50 8- 4- 00 RS 85 Av ve 30 20 20 ai 13 08 08 FA la 8 NJ bl LY e DR UG TH 50 04 04 00 60 30 SO 28 No Ac EO 11 -0 -2 .0 PE 10 t ti PH 10 8- 4- 00 RS 88 Av ve YL 48 20 20 ai LI 20 08 08 FA la NE 2 NJ bl LY e ER DR 20 UG 0 MG TA BL ET WY 37 03 04 00 56 28 SO 28 No Ac IL 00 -2 -1 .0 PE 02 t ti OS 00 7- 0- 00 RS 17 Av ve EC 45 20 20 ai 50 08 08 FA la OT 3 NJ bl C LY e [address] UG MG TA BL ET LI 00 02 04 01 30 30 SO 27 No Ac PI 07 -2 -1 .0 PE 67 t ti TO 10 1- 0- 00 RS 83 Av ve R 15 20 20 ai 40 72 08 08 FA la 3 NJ bl MG LY e TA DR BL [...] 40 72 08 08 FA la 3 NJ bl MG LY e TA DR BL UG ET 66 01 03 00 30 30 YO 15 No Ac 79 -2 -2 0. UR 36 t ti 40 8- 6- 00 1 Av ve 00 20 20 0 PH ai 26 08 08 AR la 0 MA bl CY e WY 37 01 03 01 56 28 SO 27 No Ac IL 00 -1 -2 .0 PE 26 t ti OS 00 4- 6- 00 RS 51 Av ve EC 45 20 20 ai 50 08 08 FA la OT 3 NJ bl C LY e [address] UG MG TA BL ET LI 00 10 03 02 30 30 SO 26 No Ac PI 07 -2 -2 .0 PE 59 t ti TO 10 9- 5- 00 RS 30 Av ve R 15 20 20 ai 40 72 07 08 FA la 3 NJ bl MG LY e TA DR BL UG ET WY 37 01 03 00 56 28 SO 27 No Ac IL 00 -1 -2 .0 PE 26 t ti OS 00 4- 5- 00 RS 51 Av ve EC 45 20 20 ai 50 08 08 FA la OT 3 NJ bl C LY e [address] [...] ytes/10 017 42.0 ed 0 20:33 leukocy lori in Blood [...] 85%/>02 MEDICAL MEDICAL CON[facility] AT [facility] [id number] [facility] DEFINITV [address] ID INC INC METH P DAY 8-14 DRUG CL DRUG TEST 62417 [facility] DY[facility] PRSMV 7 [facility] QUAL DIR INC INC OPTICAL OBS PER DAY O2 CONC 1 E1390 [facility] HOME HOME 85%/>02 MEDICAL MEDICAL CONC AT EQUIPME EQUIPME PRS FLW RATE THER 41836 [facility] PROPH/DX [address] [place] [address] SEQL IV PUSH SBST/DRUG FAC OBSERVATI 18188 NIKITA TOBIN ON CARE [address] [facility] [id number] [facility] OBSERVATI [address] [place] [address] HOSPITAL SERVICE PER HOUR INJECTION [id number] [facility] CEFEPIME [address] [place] [address] HYDROCHLO RIDE 500 MG INJECTION J1644 [facility] HEPARIN [address] [place] [address] PER 1000 UNITS INJ J2930 [facility] METHYLPRD [address] [place] [address] SODIUM SUCCNAT TO 125 MG INFUSION J7030 [facility] NORMAL [address] [place] [address] SOLUTION 1000 CC BASIC 49474 [facility] METABOLIC [address] [place] [address] CALCIUM TOTAL COLLECTIO 51433 [facility] N VENOUS [address] [place] [address] VENIPUNCT URE BLOOD 60614 [facility] COUNT [address] [place] [address] AUTO&AUTO DIFRNTL WBC THERAPEUT [address] TIC/DX INJECTION SUBQ/IM THERAPEUT [address] IV PUSH EACH NEW DRUG THER 61541 [facility] PROPH/DX [address] [place] [address] SEQL IV PUSH SBST/DRUG FAC THERAPEUT [address] TIC/DX INJECTION SUBQ/[place] [address] [facility] INFUSION [address] [place] [address] PROPHYLAX IS/[place] [address] THERAPY/P [facility] ROPHYLAXI S /DX 1ST TO 1 HR ECG 00808 [facility] ROUTINE [address] [place] [address] HOSPITAL W/LEAST 12 LDS TRCG ONLY W/O I&[place] [address] [facility] TROPONIN [address] [place] [address] [facility] [place] [address] [facility] MAGNESIUM [address] [place] [address] BLOOD 27143 [facility] COUNT [address] [place] [address] AUTO&AUTO DIFRNTL WBC CUL BACT 94550 [facility] XCPT [address] [place] [address] [facility] BLOOD/STO OL AEROBIC ISOL SMR PRIM 74595 [facility] SRC [address] [place] [address] GRAM/GIEM [facility] SA STAIN BCT FUNGI/ROZINA L COLLECTIO 34246 [facility] N VENOUS [address] [place] [address] VENIPUNCT URE BASIC 72601 [facility] METABOLIC [address] [place] [address] CALCIUM TOTAL INJ J2930 [facility] [address] [place] [address] SODIUM SUCCNAT TO 125 MG INJECTION J1644 [facility] HEPARIN [address] [place] [address] HOSPITAL PER 1000 UNITS INJECTION J0692 [facility] CEFEPIME [address] [place] [address] HYDROCHLO RIDE 500 MG INFUSION J7030 [facility] NORMAL [address] [place] [address] SOLUTION 1000 CC INITIAL 21739 [facility] OBSERVATI 7 W N ON HOSPITALI CARE/DAY ST 50 MINUTES TOBACCO 32379 [facility] USE [address] [place] [address] INTENSIVE >10 MINUTES INJECTION J0692 [facility] CEFEPIME [address] [place] [address] HYDROCHLO RIDE 500 MG INJECTION J1956 [address] [facility] RENETTA 250 MG INJECTION J1644 [facility] HEPARIN [address] [place] [address] PER 1000 UNITS INJ J2930 [facility] METHYLPRD [address] [place] [address] SODIUM SUCCNAT TO 125 MG INFUSION J7030 [facility] NORMAL [address] [place] [address] SOLUTION 1000 CC COMPREHEN 38700 [facility] SIVE [address] [place] [address] PANEL URNLS DIP [address] [facility] HOSPITAL LET REAGENT AUTO MICROSCOP Y CORTISOL 80122 [facility] TOTAL [address] [place] [address] COLLECTIO 72311 [facility] N VENOUS [address] [place] [address] VENIPUNCT URE RADIOLOGI 94193 [facility] C EXAM [address] [place] [address] [facility] VIEWS FRONTAL&L ATERAL CULTURE 19087 [facility] BACTERIAL [address] [place] [address] QUANTTATI VE COLONY COUNT URINE CULTURE 62172 [facility] BACTERIAL [address] [place] [address] AEROBIC W/ID ISOLATES BLOOD 25724 [facility] COUNT [address] [place] [address] AUTO&[place] [address] [facility] OSMOLALIT [address] [place] [address] BLOOD 18733 [facility] GASES ANY [address] [place] [address] COMBINATI ON PH PCO2 PO2 [place] [address] [facility] LACTATE [address] [place] [address] [place] [address] [facility] URINE [address] [place] [address] [place] [address] [facility] TROPONIN [address] [place] [address] [place] ECG 33893 [facility] ROUTINE [address] [place] [address] W/LEAST 12 LDS TRCG ONLY W/O I&R THERAPEUT 77392 [facility] IC [address] [place] [address] TIC/DX INJECTION SUBQ/IM ECG 56614 [facility] ROUTINE 7 DESIRE ECG EMERGENCY W/LEAST PHYS 12 LDS I&R ONLY PRESSURIZ 87758 [facility] ED/NONPRE [address] [place] [address] INHALATIO N TREATMENT DRUG TEST 01656 [facility] PRSMV 7 [facility] QUAL DIR INC INC OPTICAL OBS PER DAY O2 CONC 1 E1390 [facility]ION [facility] 7 HOME HOME 85%/>02 MEDICAL MEDICAL CONC AT EQUIPME EQUIPME PRS FLW RATE DRUG TEST 44319 [facility] DYER PRSMV 7 [facility] MEM [facility]OSP QUAL DIR [place] [address] [facility] IMAGING [address] CLINIC ATTENUATI ON WHOLE BODY FLUORODEO A9552 [facility] XYGLUCOSE 7 Y MEDICAL F-18 FDG CLINIC DX UP TO 45 MCI SBSQ 26794 [facility] CARE/DAY MEDICAL 35 G MINUTES INITIAL 66299 [facility] INPATIENT 7 NE HEALTH CONSULT MEDICAL NEW/ESTAB G PT 80 MIN RADIOLOGI 65664 [facility] C EXAM 7 RADIOLOGY LD IV CHEST 2 VIEWS FRONTAL&[place] [address] [facility] STENT CRV 7 NE HEALTH CRTD ART MEDICAL EMBOLIC G PROTECJ ECG 36992 [facility] KATE ROUTINE 7 NE HEALTH ECG MEDICAL W/LEAST G 12 LDS I&R ONLY [facility] SCAN 7 [facility]ER EXTRACRAN RADIOLOGY IAL ART ASSOCIAT COMPL BI STUDY INITIAL 81129 [facility] YUE INPATIENT 7 NE HEALTH CONSULT MEDICAL NEW/ESTAB G PT 80 MIN GROUND A0425 [facility] MILEAGE [address] [place] [address] PER AMBULANCE AMBULANCE STATUTE MILE AMB A0427 [facility] SERVICE [address] [place] [address] ALS AMBULANCE AMBULANCE EMERGENCY TRANSPORT LEVEL 1 ECG 47742 [facility] ROUT[facility] 7 DESIRE ECG EMERGENCY W/LEAST PHYS 12 LDS I&[place] [address] [facility] HEAD/BRAI 7 EIDER N W/O RADIOLOGY CONTRAST ASSOCIAT MATERIAL RADIOLOGI 64184 [facility] C EXAM 7 [facility] CHEST 2 RADIOLOGY VIEWS ASSOCIAT FRONTAL&[place] [address] [facility] ABDOMEN & 7 [facility] PELVIS RADIOLOGY W/O ASSOCIAT CONTRAST MATERIAL O2 CONC 1 E1390 [facility] 7 HOME HOME 85%/>02 MEDICAL MEDICAL CONC AT EQUIPME EQUIPME PRSC FLW RATE LOCM Q9967 [facility] 300-399 7 [facility] MG/ML HOSPITAL HOSPITAL IODINE CONCENTRA TION PER ML CT SOFT [address] [place] TISSUE 7 [facility] NECK [facility] H[facility] W/[place] [address] [facility] ABDOMEN & 7 [facility] PELVIS [facility] W/CONTRAS T MATERIAL [facility] THORAX [address] W/[facility] T MATERIAL LOCM Q9967 [facility] [phone] [facility] MG/ML HOSPITAL HOSPITAL IODINE CONCENTRA TION PER ML ADMN SET A7005 NAOMIE AKBAR W/SM VOL 7 HOME HOME NONFILTR MEDICAL MEDICAL NEBULIZR EQUIPME EQUIPME NON-DISPB L DRUG TEST G0481 GOMEZ DYER DEFINITV [address] ID INC INC METH P DAY 8-14 DRUG CL DRUG TEST 47320 GOMEZ DYER PRSMV 7 [facility] QUAL DIR INC INC OPTICAL OBS PER DAY COMPREHEN 74010 [facility] SIVE 7 DARRYL DARRYL [facility]AB[facility] PANEL LACTATE 30931 [facility] DEHYDROGE 7 DARRYL DARRYL NASE LDH [facility] BLOOD 62647 [facility] COUNT 7 DARRYL [...] P DAY 8-14 DRUG CL DRUG TEST 21650 GOMEZ DYER PRSMV 7 [facility] QUAL DIR INC INC OPTICAL OBS PER DAY RADEX 46867 [facility] HAND [address] [place] [address] HOSPITAL VIEWS REPAIR 91718 CURRIETAMI CURRIE INTERMEDI [address] [place] [address] N/H/F/XTR NL GENT 2.6-7.5 CM TDAP 31453 [facility] VACCINE [address] [place] [address] YRS/> IM HOSPITAL [facility] DEBRIDEME 80214 [facility] NT OPEN 7 DESIRE WOUND 20 EMERGENCY SQ CM/< PHYS O2 CONC 1 [id number] NAOMIE GORDON 7 HOME HOME 85%/>02 MEDICAL MEDICAL CONC AT EQUIPME EQUIPME PRSC FLW RATE INFUSION J7030 [facility] NORMAL [address] [place] [address] SOLUTION 1000 CC INJECTION J24[address] [facility] PER 1 MG DRUG TEST G0480 [facility] DEFINITV [address] [place] [address] METH P DAY 1-7 DRUG CL IAADIADOO [address] [facility] CULTURE 55560 [facility] BACTERIAL [address] [place] [address] AEROBIC W/[place] [address] [facility] LIPASE [address] [place] [address] [place] [address] [facility] LACTATE [address] [place] [address] [place] [address] [facility] MAGNESIUM [address] [place] [address] [place] [address] [facility] FREE [address] [place] [address] [place] [address] [facility] TROPONIN [address] [place] [address] [place] ECG [address] [facility] ROUTINE 7 DESIRE ECG EMERGENCY W/LEAST PHYS 12 LDS I&R ONLY THER 39489 [facility] PROPH/DX [address] [place] [address] HOSPITAL PUSH SINGLE/1S T SBST/[place] [address] [facility] INFUSION [address] [place] [address] [facility] EACH ADDITIONA L HOUR ECG 63968 [facility] ROUTINE [address] [place] [address] W/LEAST 12 LDS TRCG ONLY W/O I&R COLLECTIO 49732 [facility] N VENOUS [address] [place] [address] [place] [address] [facility] HEAD/BRAI [address] [place] [address] W/O [facility] CONTRAST MATERIAL RADIOLOGI 68123 [facility] C EXAM [address] [place] [address] [facility] VIEWS FRONTAL&L ATERAL DRUG TEST 94781 [facility] PRSMV 7 [facility] CHEMISTRY ANALYZERS URNLS DIP 50683 [address]/TAB [facility] HOSPITAL LET REAGENT AUTO MICROSCOP Y GENERAL 87524 [facility] [address] [place] [address] DRUG 27901 GOMEZ DYER SCREENING 7 [facility] OPIOIDS INC INC & OPIATE ANALOGS 5/MORE DRUG TEST 30808 GOMEZ DYER PRSMV 7 [facility] QUAL DIR INC INC OPTICAL OBS PER DAY NJX 23932 NEIDA DUFF DX/THER 7 MD SUNNY, AGT PVRT PSC FACET JT LMBR/SAC 1 LEVEL NJX 70196 NEIDA DUFF DX/THER 7 MD SUNNY, AGT PVRT PSC FACET JT LMBR/SAC 2ND LEVEL O2 CONC 1 E1390 NAOMIE CARRION [facility] 7 HOME HOME 85%/>02 MEDICAL MEDICAL CONC AT EQUIPME EQUIPME PRSC FLW RATE DRUG TEST 27210 GOMEZ DYER PRSMV 7 MEM H[facility] QUAL DIR INC INC OPTICAL OBS PER DAY CYANOCOBA 76214 GOMEZ DYER JENNY 7 MEM H[facility] VITAMIN INC INC B-12 PPSV23 13777 [facility] FRANCISCO VACCINE 2 7 PHYSICIAN YRS OR S GROUP OLDER FOR SUBQ/IM USE DRUG TEST 26809 GOMEZ DYER PRSMV 7 [facility] QUAL DIR INC INC OPTICAL OBS PER DAY DRUG TEST G0480 GOMEZ DYER DEFINITV [address] ID INC INC METH P DAY 1-7 DRUG CL DRUG TEST G0481 GOMEZ DYER DEFINITV [address] ID INC INC METH P DAY 8-14 DRUG CL COMPREHEN 13222 [facility] SIVE 7 DARRYL DARRYL METABOLIC [facility]INGS PANEL BLOOD 23076 [facility] COUNT 7 DARRYL DARRYL COMPLETE HOLDINGS HOLDINGS AUTO&[place] [address] [facility] BLOOD/URI 7 DARRYL DARRYL C ACID HOLDINGS HOLDINGS LACTATE 39988 LAB [facility] DEHYDROGE 7 [facility] [place] [address] LAB DIEGO [facility] MAGNESIUM 7 [facility] HOLDINGS HOLDINGS DRUG TST G0477 GOMEZ DYER [...] AT EQUIPME EQUIPME PRSC FLW RATE MOTION 77474 KUSH CURRIE FLUOR [address] [place] [address] SWLNG FUNJ C/V REC SWALLOWIN 02547 KUSH Benson FUNJ [address] [place] [address]/[facility] IOGRAPY/V IDRADIOG ADMN SET A7005 NAOMIE AKBAR W/SM VOL 6 HOME HOME NONFILTR MEDICAL MEDICAL NEBULIZR EQUIPME EQUIPME NON-DISPB L COLLECTIO 45813 SHERMAN Perera VENOUS 6 Y [facility] B[place] [address] [facility] D[facility] ERYTHROPO 6 DARRYL DARRYL [place] [address] LAB D[facility] D[facility] FERRITIN 6 DARRYL DARRYL HOLDINGS HOLDINGS CYANOCOBA 97207 [facility] D[facility] JENNY 6 DARRYL DARRYL VITAMIN HOLDINGS HOLDINGS B-12 [place] [address] LAB D[facility] D[facility] FOLIC 6 DARRYL DARRYL [place] [address] [facility] IRON 6 DARRYL DARRYL HOLDINGS HOLDINGS NONINVASI 05816 SHERMAN MANZANARES VE 6 Y [facility] EAR/PULSE CLINIC OXIMETRY SINGLE DETER LACTATE 04185 [facility] DEHYDROGE 6 DARRYL DARRYL N[place] [address] LAB DIEGO LAB DIEGO [id number] 6 DARRYL DARRYL SFERRIN HOLDINGS HOLDINGS BLOOD 99575 [facility] COUNT 6 DARRYL DARRYL COMPLETE HOLDINGS HOLDINGS AUTO&AUTO DIFRNTL WBC BLOOD 88913 [facility] COUNT 6 DARRYL DARRYL RETICULOC [place] [address] KUSH CURRIE SWALLOWIN [address] [place] [address] DYSFUNCTI ON&/ORAL FUNCJ FEEDING INTERROGA 67438 [facility] 6 PHYSICIAN MAT EVALUATIO S GROUP N IN PERSON ILR SYSTEM ECG 42363 GOMEZ DYER ROUTINE 6 [facility] ECG INC INC W/LEAST 12 LDS TRCG ONLY W/O I&[place] [address] [facility] SWALLOWIN [address] [place] [address] DYSFUNCTI ON&/ORAL FUNCJ FEEDING HOS BED E0260 NAOMIE AKBAR SEMI-ELEC 6 HOME HOME W/ANY MEDICAL MEDICAL TYPE SIDE EQUIPME EQUIPME RAIL W/MATTRSS O2 CONC 1 E1390 NAOMIE AKBAR [place] 6 HOME HOME 85%/>02 MEDICAL MEDICAL CONC AT EQUIPME EQUIPME PRSC FLW RATE PRESCRIPT J8499 [facility] ION DRUG [address] [place] [address] NONCHEMOT HERAPEUTI C NOS PRESSURIZ 60505 [facility] ED/NONPRE [address] [place] [address] [place] [address] [facility] IRON [address] [place] [address] IRON 64525 [facility] BINDING [address] [place] [address] [place] [address] [facility] FOLIC [address] [place] [address] SERUM CYANOCOBA 90610 [facility] JENNY [address] [place] [address] B-12 [place] [address] [facility] FERRITIN [address] [place] [address] BASIC 47173 [facility] METABOLIC [address] [place] [address] CALCIUM TOTAL GENERAL 70772 [facility] [address] [place] [address] [place] [address] [facility] LACTATE [address] [place] [address] CREATINE 18824 [facility] KINASE [address] [place] [address] HOSPITAL COLLECTIO 01730 [facility] N VENOUS [address] [place] [address] [place] [address] [facility] HEAD/BRAI [address] [place] [address] W/O [facility] [place] [address] [facility] INFUSION [address] [place] [address] INITIAL 31 MIN-1 [place] [address] [facility] INFUSION [address] [place] [address] HOSPITAL EACH ADDITIONA L HOUR ECG 10944 [facility] ROUTINE 6 DESIRE PHI ECG EMERGENCY W/LEAST PHYS 12 LDS I&R ONLY ECG 82479 [facility] ROUTINE [address] [place] [address] HOSPITAL W/LEAST 12 LDS TRCG ONLY W/O I&[place] [address] [facility] TROPONIN [address] [place] [address] [place] [address] [place] [facility] MAGNESIUM [address] [place] [address] [place] [address] [place] K[facility] FREE [address] [place] [address] INFUSION J7030 [place] [facility] NORMAL [address] [place] [address] HOSPITAL SOLUTION 1000 CC HOSPITAL G0378 [place] [facility] OBSERVATI [address] [place] [address] HOSPITAL SERVICE PER HOUR CRITICAL 15036 [facility] CARE 6 DESIRE PHI ILL/INJUR EMERGENCY ED PHYS PATIENT INIT 30-[place] [address] [facility] [address] DYSFUNCTI ON&/[place] [address] [facility] [address] DYSFUNCTI ON&/[place] [address] DYSFUNCTI ON&[place] [address] [facility] [address] DYSFUNCTI ON&/[place] [address] [facility] [address] HOSP[facility] DYSFUNCTI ON&/[place] [address] [facility] [address] HOSPITAL DYSFUNCTI ON&/ORAL FUNCJ FEEDING RADIOLOGI 50080 PATRICIA OPAL C 6 MEDICAL EXAMINATI IMAGING ON EYE ASS DETECT FOREIGN BODY 3D 13789 PATRICIA FARIAS RENDERING 6 MEDICAL DEMARCUS W/INTERP IMAGING & ASS POSTPROCE SS SUPERVISI ON MRI 59043 PATRICIA FARIAS SPINAL 6 MEDICAL DEMARCUS CANAL IMAGING LUMBAR ASS W/O CONTRAST MATERIAL ECG 37659 GOMEZ DYER ROUTINE 6 MEM [facility] ECG INC INC W/LEAST 12 LDS TRCG ONLY W/O I&[place] [address] KUSH GABRIEL 6 [facility] DYSFUNCTI ON&/ORAL FUNCJ FEEDING PET 45487 [facility] IMAGING 6 Y [facility] FOR CT CLINIC ATTENUATI ON WHOLE BODY FLUORODEO A9552 [facility] XYGLUCOSE 6 Y [facility] F-18 FDG CLINIC DX UP TO 45 [place] [address] KUSH GABRIEL 6 [facility] DYSFUNCTI ON&/ORAL FUNCJ FEEDING HOS BED E0260 NAOMIE AKBAR SEMI-ELEC 6 HOME HOME W/ANY MEDICAL MEDICAL TYPE SIDE EQUIPME EQUIPME RAIL W/MATTRSS O2 CONC 1 E1390 NAOMIE AKBAR [place] 6 HOME HOME 85%/>02 MEDICAL MEDICAL CONC [place] [address] KUSH GABRIEL 6 [facility] DYSFUNCTI ON&/[place] [address] KUSH GABRIEL 6 [facility] DYSFUNCTI ON&/ORAL FUNCJ FEEDING BLOOD 49855 [facility] DIEGO COUNT 6 DARRYL DARRYL COMPLETE HOLDINGS HOLDINGS AUTO&AUTO DIFRNTL WBC LACTATE 90144 [facility] D[facility] DEHYDROGE 6 DARRYL DARRYL NASE LDH HOLDINGS HOLDINGS COMPREHEN 72873 LAB [facility] DIE[facility] SIVE 6 DARRYL DARRYL METAB[place] [address] KUSH GABRIEL [facility] DYSFUNCTI ON&/[place] [address] KUSH GABRIEL 6 [facility] DYSFUNCTI ON&/[place] [address] KUSH [address]ABRIEL [address] [place] [address] HOSPITAL DYSFUNCTI ON&/ORAL FUNCJ FEEDING DRUG TST G0477 GOMEZ DYER PRESUMP;C 6 [facility] PBL BEING INC INC READ DC OPT OBV ONLY DRUG TEST G0481 GOMEZ DYER DEFINITV 6 MEM [facility] DR ID INC INC METH P DAY 8-[place] [address] KUSH TURKIN [address] [place] [address] DYSFUNCTI ON&/[place] [address] KUSH TURKIN [address] [place] [address] DYSFUNCTI ON&[place] [address] KUSH TURKIN [address] [place] [address] DYSFUNCTI ON&/[place] [address] KUSH TURKIN [address] [place] [address] DYSFUNCTI ON&/ORAL FUNCJ FEEDING DUPLEX 56435 GOMEZ DYER SCAN 6 [facility] HOSP EXTRACRAN INC INC IAL ART COMPL BI STUDY HOS BED E0260 NAOMIE NAOMIE SEMI-ELEC 6 HOME HOME W/ANY MEDICAL MEDICAL TYPE SIDE EQUIPME EQUIPME RAIL W/MATTRSS O2 CONC 1 E1390 NAOMIEAN AKBAR [place] 6 HOME HOME 85%/>02 MEDICAL MEDICAL CONC AT EQUIPME EQUIPME PRS FLW RATE INTERROGA 33634 [facility] TION 6 PHYSICIAN MAT EVALUATIO S GROUP N IN PERSON ILR SYSTEM ECG 56727 GOMEZ DYER ROUTINE 6 [facility] ECG INC INC W/LEAST 12 LDS TRCG ONLY W/O I&R HOS BED E0260 NAOMIE AKBAR SEMI-ELEC 6 HOME HOME W/ANY MEDICAL MEDICAL TYPE SIDE EQUIPME EQUIPME RAIL W/MATTRSS O2 CONC 1 E1390 NAOMIE ARTEAGARELL [place] 6 HOME HOME 85%/>02 MEDICAL MEDICAL CONC AT EQUIPME EQUIPME PRSC FLW RATE DIRECT G[address] [facility] SNS RN 6 MEDICAL MEDICAL HOME [facility] HEALTH/ ASSISTANT CORPORATE SECRETARY ASSISTANT CORPORATE SECRETARY SPICE SET EA 15 MIN LACTATE 20963 [facility] DEHYDROGE 6 DARRYL DARRYL NASE [facility] HOLDINGS BLOOD 83521 [facility] DIE[facility] COUNT 6 DARRYL DARRYL COMPLETE HOLDINGS HOLDINGS AUTO&AUTO DIFRNTL WBC COMPREHEN 80500 LAB [facility] DIEGO SIVE 6 [facility] METABOLIC HOLDINGS HOLDINGS PANEL DIRECT G0299 [facility] CASTELLANO RN 6 [facility] ASSISTANT CORPORATE SECRETARY ASSISTANT CORPORATE SECRETARY SPICE SET EA [address] [facility] CASTELLANO RN 6 [facility] ASSISTANT CORPORATE SECRETARY ASSISTANT CORPORATE SECRETARY SPICE SET EA 15 MIN HOME [place]; S9341 INFUSION INFUSION ENTERAL 6 PARTNERS PARTNERS NUTRITION OF OF VIA [place] GRAVITY; FAMILY LIVING EDUCATOR ENTRAL F B4152 INFUSION INFUSION NUTRITION 6 PARTNERS PARTNERS CMPL VASQUEZ OF OF DENSE [place] INTACT NUTRNTS INTERROGA 43269 [facility] BRITANY TION 6 PHYSICIAN MAT EVALUATIO S GROUP N IN PERSON ILR SYSTEM HOS BED E0260 NAOMIE AKBAR SEMI-ELEC 6 HOME HOME W/ANY MEDICAL MEDICAL TYPE SIDE EQUIPME EQUIPME RAIL W/MATTRSS DIRECT G0299 [facility] CASTELLANO RN 6 [facility] ASSISTANT CORPORATE SECRETARY SPICE SET EA 15 MIN O2 CONC 1 E1390 NAOMIE AKBAR [place] 6 HOME HOME 85%/>02 MEDICAL MEDICAL CONC AT EQUIPME EQUIPME PRSC FLW RATE DIRECT G0299 ST [facility] CASTELLANO RN 6 [facility] ASSISTANT CORPORATE SECRETARY ASSISTANT CORPORATE SECRETARY SPICE SET EA 15 MIN BLOOD 34458 GOMEZ DYER COUNT 6 MEM H[facility] MEM HOSP COMPLETE INC INC AUTO&AUTO DIFRNTL WBC BASIC 68017 GOMEZ DYER METABOLIC 6 MEM H[facility] HOSP PANEL INC INC CALCIUM TOTAL RADIOLOGI 16391 PATRICIA Jimenez MEDICAL DEMARCUS EXAMINATI IMAGING ON CHEST ASS SINGLE VIEW FRONTAL COLLECTIO 86927 GOMEZ DYER N VENOUS 6 MEM HOSP MEM HOSP BLOOD INC INC VENIPUNCT URE DIRECT G0299 ST [facility] CASTELLANO RN 6 [facility] ASSISTANT CORPORATE SECRETARY ASSISTANT CORPORATE SECRETARY SPICE SET EA 15 MIN SBSQ 45328 [facility] 6 MEDICAL CARE/DAY SERV 25 FOUNDATIO MINUTES N ADDITIVE B4104 INFUSION INFUSION FOR 6 PARTNERS PARTNERS ENTERAL OF OF [place] ENTRAL F B4152 INFUSION INFUSION NUTRITION 6 PARTNERS PARTNERS CMPL VASQUEZ OF OF DENSE [place] INTACT NUTRNTS HOME [place]; S9341 INFUSION INFUSION ENTERAL 6 PARTNERS PARTNERS NUTRITION OF OF VIA [place]; [place] [address] TIFFANIE BRANDEE RETROPERI 6 MEDICAL ADR TONEAL SERV REAL TIME FOUNDATIO W/IMAGE N COMPLETE RADIOLOGI 55193 TIFFANIE OCONNELL HENRIK C 6 MEDICAL EXAMINATI SERV ON CHEST FOUNDATIO SINGLE N VIEW FRONTAL THORACENT 51447 TIFFANIE RAISSI ESIS 6 MEDICAL DRI NEEDLE/CA SERV TH PLEURA FOUNDATIO N W/IMAGING CYTP 03204 [facility] SLCTV 6 Y OF ОЛЕГ CELL [place] [facility] NT INTERPJ XCPT C/[place] [address] [facility] SURG 6 Y OF ОЛЕГ PATHOLOGY [place] [facility] GROSS&KAMILA ROSCOPIC EXAM SBSQ 33599 [facility] 6 MEDICAL OS CARE/DAY SERV 25 FOUNDATIO MINUTES N SBSQ 02141 [facility] 6 MEDICAL OS CARE/DAY SERV 25 FOUNDATIO MINUTES N SBSQ 59511 [facility] 6 MEDICAL OS ROZINA CARE/DAY SERV 25 FOUNDATIO MINUTES N SBSQ [address]2833 [place] [address] MEDICAL OS ROZINA CARE/DAY SERV 25 FOUNDATIO MINUTES N INITIAL 78274 [facility] 6 DESIRE A RIVAS CARE/DAY PHYSICIAN 70 SERVI MINUTES SWALLOWIN 70645 TIFFANIE LUGO 6 MEDICAL SCO W/CINERAD SERV IOGRAPY/V FOUNDATIO IDRADIOG N RADIOLOGI 18847 [facility] ALL C EXAM 6 MEDICAL CHEST 2 IMAGING VIEWS ASS FRONTAL&L ATERAL CT THORAX 67721 [place] [facility] 6 MEDICAL W/CONTRAS IMAGING T ASS MATERIAL ECG 44119 [place] ROUTINE 6 MEDICAL NAN ECG SERV W/LEAST FOUNDATIO 12 LDS N I&R ONLY HOSPITAL [address] [facility] 6 DESIRE IRM DAY PHYSICIAN MANAGEMEN SERVI T > 30 MIN SBSQ 53996 [facility] 6 DESIRE IRM CARE/DAY PHYSICIAN 25 SERVI MINUTES SBSQ 44686 [facility] 6 DESIRE IRM CARE/DAY PHYSICIAN 25 SERVI MINUTES SBSQ 36275 [facility] 6 DESIRE IRM CARE/DAY PHYSICIAN 25 SERVI MINUTES INITIAL 41474 [facility] 6 DESIRE IRM CARE/DAY PHYSICIAN 70 SERVI MINUTES O2 CONC 1 E1390 NAOMIE [facility] 6 HOME HOME 85%/>02 MEDICAL MEDICAL CONC AT EQUIPME EQUIPWY PRS FLW RATE DRUG TST G0477 GOMEZ DYER PRESUMP;C 6 MEM H[facility] MEM HOSP PBL BEING INC INC READ DC OPT OBV ONLY O2 CONC 1 E1390 [place]IE [place] [address] HOME HOME 85%/>02 MEDICAL MEDICAL CONC AT [...] DRUG CL O2 CONC 1 E1390 [place]IE [place] [address] HOME HOME 85%/>02 MEDICAL MEDICAL CONC AT EQUIPME EQUIPME PRS FLW RATE DRUG TST G0477 GOMEZ DYER PRESUMP;C 6 MEM HOS[facility] MEM HOSP PBL BEING INC INC READ DC OPT OBV ONLY INTERROGA 76521 [facility] TION 5 CULAR MAT EVALUATIO CONSULTAN N IN TS O PERSON ILR SYSTEM INTERROGA 67849 [facility] TION 5 CULAR MAT EVALUATIO CONSULTAN N IN TS O PERSON ILR SYSTEM O2 CONC 1 E1390 [facility] 5 HOME HOME 85%/>02 MEDICAL MEDICAL CONC [facility] FLW [facility]ATE [facility] 97523 [facility] BRITANY ROUTINE 5 CULAR MAT ECG CONSULTAN W/LEAST TS O 12 LDS I&R ONLY ECG 23246 GOMEZ DYER ROUTINE 5 MEM H[facility] ECG INC INC W/LEAST 12 LDS TRCG ONLY W/O I&R INTERROGA 20189 [facility] TION 5 CULAR MAT EVALUATIO CONSULTAN N IN TS O PERSON ILR SYSTEM O2 CONC 1 E1390 [facility]IE [facility] 5 HOME HOME 85%/>02 MEDICAL MEDICAL CONC AT EQUIPME [facility] FLW RATE INJECTION J0696 GOMEZ HICKMAN 5 [facility] NE SODIUM PER 250 MG THERAPEUT 08483 GOMEZ HICKMAN IC 5 [facility] TIC/DX INJECTION SUBQ/ HOSPITAL [address] [facility] 5 DESIRE DAY PHYSICIAN MANAGEMEN SERVI T > 30 MIN SBSQ 30043 [facility] 5 Y [facility] CARE/DAY CLINIC 35 MINUTES SBSQ [address] CARE/DAY PHYSICIAN 25 SERVI MINUTES INITIAL 91670 [facility] [address] [facility] CARE/DAY PHYSICIAN 30 SERVI MINUTES INITIAL 91424 [facility] 5 Y [facility] CARE/DAY CLINIC 70 MINUTES RADIOLOGI 05573 [facility] C EXAM 5 NGOZI CHEST 2 RADIOLOGY VIEWS ASSOCIAT FRONTAL&L ATERAL INTERROGA 09025 [facility] TION 5 CULAR MAT EVALUATIO CONSULTAN N IN TS O PERSON ILR SYSTEM ECG 21579 [facility] ROUTINE 5 CULAR MAT ECG CONSULTAN W/LEAST TS O 12 LDS I&R ONLY ECG 57060 GOMEZ DYER ROUTINE 5 MEM H[facility] ECG INC INC W/LEAST 12 LDS TRCG ONLY W/O I&R O2 CONC 1 E1390 NAOMIE [place]ON 5 HOME HOME 85%/>02 MEDICAL MEDICAL CONC [facility] FLW RATE LOCM Q9967 GOMEZ DYER 300-399 5 MEM H[facility]OS[facility] MG/ML INC INC IOD[place] [address] GOMEZ DYER UREA 5 [facility]OS[facility] NITROGEN INC INC QUANTITAT [place] COLLECTIO 09196 GOMEZ DYER N VENOUS 5 MEM H[facility] BLOOD INC INC VENIPUNCT URE CT SOFT 23389 [place] [facility]ILIP ALL TISSUE 5 MEDICAL NECK W/O IMAGING & ASS W/[place] [address] GOMEZ DYER ANGIOGRAP 5 MEM H[facility]OS[facility] HY NECK INC INC W/CONTRAS T/NONCONT RAST CREATININ 00793 GOMEZ DYER E BLOOD 5 MEM HOS[facility] HOSP INC INC PET 24830 [facility] IMAGING 5 Y [facility]ICAL [facility] FOR CT CLINIC ATTENUATI ON WHOLE BODY FLUORODEO A9552 [facility] XYGLUCOSE 5 Y [facility] F-18 FDG CLINIC DX UP TO [address] THORAX 81351 [facility] W/O & 5 REGIONAL GLE W/CONTRAS MEDICAL T BELKIS MATERIAL CT SOFT 55455 [facility] TISSUE 5 REGIONAL GLE NECK W/O MEDICAL & BELKIS W/[place] [address] CURRIE LAURENCE HEAD/BRAI 5 REGIONAL GLE N W/O & MEDICAL W/CONTRAS BELKIS T MATERIAL GENERAL 51298 [facility] HEALTH 5 DARRYL DARRYL [place] [address] LAB [facility] FOLIC 5 DARRYL DARRYL ACID HOLDINGS HOLDINGS SERUM CYANOCOBA 69890 LAB D[facility] DIEGO JENNY 5 DARRYL DARRYL VITAMIN HOLDINGS HOLDINGS B-12 LACTATE 49226 [facility] DEHYDROGE 5 DARRYL DARRYL NASE LDH HOLDINGS HOLDINGS ECG 75806 GOMEZ DYER ROUTINE 5 MEM H[facility] ECG INC INC W/LEAST 12 LDS TRCG ONLY W/O I&R ECG 77068 [facility] BR[facility]ANY ROUTINE 5 CULAR MAT ECG CONSULTAN W/LEAST TS O 12 LDS I&R ONLY O2 CONC 1 E1390 NAOMIE AKBAR [facility] 5 HOME HOME 85%/>02 MEDICAL MEDICAL CONC AT [facility] FLW RATE ECG 68068 CARDIOV[facility] BRITANY ROUTINE 5 CULAR MAT ECG CONSULTAN W/LEAST TS O 12 LDS I&R ONLY ECG 46890 GOMEZ DYER ROUTINE 5 MEM [facility] ECG INC INC W/LEAST 12 LDS TRCG ONLY W/O I&R DUPLEX 78673 [place] [facility]IP ALL SCAN 5 MEDICAL EXTRACRAN IMAGING IAL ART ASS COMPL BI STUDY ECG 40866 GOMEZ DYER ROUTINE 5 MEM [facility] ECG INC INC W/LEAST 12 LDS TRCG ONLY W/O I&R ECG 07568 CARDIOVAS CARDIOVAS ROUTINE 5 CULAR CULAR ECG CONSULTAN CONSULTAN W/LEAST TS O TS O 12 LDS I&R ONLY IMPLANTAT 22138 [facility] BRITANY ION 5 CULAR MAT PT-ACTIVA CONSULTAN VIVIAN TS O CARDIAC EVENT RECORDER O2 CONC 1 E1390 NAOMIE NAOMIEAN [facility] 5 HOME HOME 85%/>02 MEDICAL MEDICAL CONC AT [facility] FLW RATE ECG 32029 CARDIOVAS BRITANY ROUTINE 5 CULAR MAT ECG CONSULTAN W/LEAST TS O 12 LDS I&R ONLY ECG 89442 GOMEZ DYER ROUTINE 5 MEM H[facility] ECG INC INC W/LEAST 12 LDS TRCG ONLY W/O I&R ECG 16043 CARDIOVAS BRITANY ROUTINE 5 CULAR MAT ECG CONSULTAN W/LEAST TS O 12 LDS W/I&R O2 CONC 1 E1390 NAOMIE AKBAR [facility] 5 HOME HOME 85%/>02 MEDICAL MEDICAL CONC AT [facility] [place] [address] GOMEZ DYER THYROXINE 5 MEM HOS[facility] [place] [address] GOMEZ DYER THYROID 5 MEM [facility] STIMULATI INC INC NG HORMONE TSH BLOOD 98123 GOMEZ DYER COUNT 5 MEM H[facility] HOS[facility] COMPLETE INC INC AUTO&AUTO DIFRNTL WBC COLLECTIO 26455 GOMEZ DYER N VENOUS 5 MEM HOS[facility] HOS[facility] [place] [address] GOMEZ DYER FOLIC 5 MEM HOS[facility] HOS[facility] ACID INC INC SERUM CYANOCOBA 98144 GOMEZ DYER JENNY 5 [facility] H[facility] HOS[facility] VITAMIN INC INC B-12 25 23062 [facility] HYDROXY 5 [facility] INCLUDES INC INC FRACTIONS IF PERFORMED COMPREHEN 77587 [facility] SIVE [facility] METABOLIC INC INC PANEL COMPREHEN 67540 [facility] MEADOWVIE SIVE 5 W W METABOLIC REGIONAL REGIONAL PANEL MEDICAL MEDICAL CREATINE 52846 [facility] MEADOW[facility]IE KINASE 5 W [facility] [place] [address] [facility] MEADOW[facility] HEAD/BRAI 5 W W N W/O REGIONAL REGIONAL CONTRAST MEDICAL MEDICAL MATERIAL RADIOLOGI 29052 [facility] MEADOWVIE C 5 W W EXAMINATI REGIONAL REGIONAL ON CHEST MEDICAL MEDICAL SINGLE VIEW FRONTAL BLOOD 16924 ME[facility] MEADOWVIE COUNT 5 W W COMPLETE REGIONAL REGIONAL AUTO&AUTO [place] [address] ME[facility] MEADOWVIE TROPONIN 5 W W QUANTITAT REGIONAL REGIONAL [place] [facility]ICAL MEDICAL INFUSION J7030 ME[facility] MEADOWVIE NORMAL 5 W W [place] REGIONAL REGIONAL SOLUTION MEDICAL MEDICAL 1000 CC ECG 84007 [facility] ROUTINE 5 DESIRE TARAH ECG EMERGENCY W/LEAST PHYS 12 LDS I&R ONLY ECG 77206 ME[facility]IE MEADOWVIE ROUTINE 5 W W ECG REGIONAL REGIONAL W/LEAST MEDICAL MEDICAL 12 LDS TRCG ONLY W/[place] [address] ME[facility]IE MEADOWVIE INFUSION 5 W W HYDRATION REGIONAL REGIONAL INITIAL MEDICAL MEDICAL 31 MIN-1 [place] [address] [facility] [place] STENT CRV [facility] CRTD ART MEDICAL EMBOLIC G PROTECJ RADIOLOGI 50334 [facility] [place] [facility] C EXAM 5 RADIOLOGY CAR CHEST 2 VIEWS FRONTAL&[place] [address] [facility] [place] STENT CRV 5 NE [facility] CRTD ART MEDICAL EMBOLIC G PROTECJ SLCTV 87810 [facility] [place] CATH 5 NE [facility] CAROTID/I MEDICAL NNOM ART G ANGIO XTRCRANL ART PERCUTANE [address] ANGIOPLAS TY EXTRACRAN IAL VESSELS PERCUTANE [address] INSERTION CAROTID ARTERY STENT(S) INSERTION [address] VASCULAR STENT PROCEDURE [address] SINGLE VESSEL PROCEDURE [address] VESSEL BIFURCATI ON DUPLEX 16616 [facility] [place] SCAN 5 NE [facility] EXTRACRAN MEDICAL IAL ART G COMPL BI STUDY THERAPEUT 57103 [facility] IC 5 PHYSICIAN KAMILA PROPHYLAC S GROUP TIC/DX INJECTION SUBQ/IM INJECTION J0696 [facility] 5 PHYSICIAN K[facility]A CEFTRIAXO S GROUP NE SODIUM PER 250 MG INJECTION J1040 [facility] 5 PHYSICIAN [place] METHYLPRE S GROUP DNISOLONE ACETATE 80 MG SBSQ 81349 [facility] 5 CULAR MAT CARE/DAY CONSULTAN 25 TS O MINUTES OBSERVATI 19015 [facility] ON CARE 5 [place] [address] [facility] HEAD/BRAI 5 VENANCIO N W/O RADIOLOGY CONTRAST ASSOCIAT MATERIAL RADIOLOGI 42047 [facility] C 5 EXAMINATI RADIOLOGY RADIOLOGY ON CHEST ASSOCIAT ASSOCIAT SINGLE VIEW FRONTAL SLCTV 30284 [facility] CATH 5 CULAR MAT INTRNL CONSULTAN CAROTID TS O ART ANGIO INTRCRNL ART SLCTV 96850 [facility] CATHJ EA 5 CULAR MAT 1ST ORD CONSULTAN ABDL TS O PEL/LXTR ART BRNCH DUPLEX 71046 [facility] SCAN 5 VENANCIO EXTRACRAN RADIOLOGY IAL ART ASSOCIAT COMPL BI STUDY CATH PLMT 94201 [facility] L HRT & 5 CULAR MAT ARTS CONSULTAN W/NJX & TS O ANGIO IMG S&I ECG 53188 [facility]ZZM[facility] ROUTINE 5 CULAR ECG CONSULTAN W/LEAST TS O 12 LDS W/I&R INITIAL 36054 [facility] CARE/DAY [...] AT EQUIPME EQUIPME PRSC FLW RATE BLOOD 97930 [facility] CUR[facility]E COUNT 5 CO [facility] AUTO&AUTO DIFRNTL WBC COMPREHEN 67708 [facility] [facility] PANEL COMPREHEN 69765 [facility] METABOLIC INC INC PANEL BLOOD 02515 GOMEZ DYER COUNT 5 [facility] COMPLETE INC INC AUTO&AUTO DIFRNTL WBC HEMOGLOBI 56975 GOMEZ DYER N 5 [facility] GLYCOSYLA INC INC VIVIAN A1C ADMN SET A7005 YOUR YOUR W/SM VOL 5 PHARMACY PHARMACY [facility] NEBULIZR NON-DISPB L O2 CONC 1 E1390 NAOMIE CARRION [facility] 5 HOME HOME 85%/>02 MEDICAL MEDICAL CONC AT [facility] FLW [facility]ATE INJECTION J1030 KUSH CURRIE 5 CO [facility] DNISOLONE ACETATE 40 MG BLOOD 79102 KUSH CURRIE COUNT 5 CO CO [facility] AUTO&AUTO DIFRNTL WBC PRESSURIZ 70834 KUSH CURRIE ED/NONPRE [address] [facility] INHALATIO N TREATMENT THERAPEUT 93796 KUSH CURRIE IC 5 CO [facility] TIC/DX INJECTION SUBQ/IM BASIC 53148 KUSH CURRIE METABOLIC 5 CO CO [facility] CALCIUM TOTAL COLLECTIO 84378 KUSH CURRIE N VENOUS 5 CO CO [facility] VENIPUNCT URE RADIOLOGI [address] [facility] EXAM 5 DESIRE JAM CHEST 2 EMERGENCY VIEWS PHYS FRONTAL&L ATERAL O2 CONC 1 E1390 NAOMIE CARRION [facility] 5 HOME HOME 85%/>02 MEDICAL MEDICAL CONC AT EQUIPME [facility] FLW RATE OPHTH 04285 [facility] 5 GRE GRE XM&EVAL COMPRE NEW PT 1/> VST O2 CONC 1 E1390 NAOMIE CARRION [facility] 5 HOME HOME 85%/>02 MEDICAL MEDICAL CONC AT EQUIPME [facility] FLW RATE DRUG SCR G0434 LAB [...] METABOLIT HOLDINGS HOLDINGS ES EACH PROCEDURE CREATININ 92487 LAB DIEGO LAB DIEGO E OTHER 5 DARRYL DARRYL SOURCE HOLDINGS HOLDINGS LIPID 31533 LAB DIEGO LAB DIEGO PANEL 5 DARRYL DARRYL HOLDINGS HOLDINGS GENERAL 88228 LAB DIEGO LAB DIEGO HEALTH 5 DARRYL DARRYL PANEL HOLDINGS HOLDINGS COLLECTIO 92613 CHENCHO ELENA N VENOUS 5 CLINIC BLOOD [...] YOUR W/SM VOL 4 PHARMACY PHARMACY NONFILTR [facility] NEBULIZR NON-DISPB L O2 CONC 1 [...] EQUIPME EQUIPME PRSC FLW RATE LOCM Q9967 [facility] UNIVERS [phone] 4 Y Y MG/ML HOSPITAL HOSPITAL IODINE CONCENTRA TION PER ML CT SOFT 93299 [facility] [address] [facility] W/CONTRAS T MATERIAL CT THORAX 23038 [place] [facility] JONATAN 4 MEDICAL W/CONTRAS SERV T FOUNDATIO MATERIAL COLLECTIO 83344 CHENCHO KIRK N VENOUS 4 CLINIC NHI BLOOD VENIPUNCT URE COMPREHEN 27760 LAB DIEGO LAB DIEGO SIVE 4 DARRYL DARRYL METABOLIC HOLDINGS HOLDINGS PANEL BLOOD 90090 LAB DIEGO LAB DIEGO COUNT 4 DARRYL DARRYL COMPLETE [place] [address] LAB DIEGO LAB DIEGO PROSTATE 4 DARRYL DARRYL SPECIFIC [place] [address] LAB DIEGO LAB DIEGO PROSTATE 4 DARRYL DARRYL SPECIFIC [place] [address] LAB DIEGO LAB DIEGO FREE 4 DARRYL DARRYL [place] [address] LAB DIEGO LAB DIEGO TRIIODOTH 4 DARRYL DARRYL YRONINE HOLDINGS HOLDINGS T3 [place] [address] [place] [address] LAB DIEGO LAB DIEGO THYROID 4 DARRYL [...] YOUR YOUR W/SM VOL 4 PHARMACY [facility] [place] [address] LAB DIEGO LAB DIEGO THYROID 4 OF DARRYL STIMULATI DARRYL HOLDINGS NG HOLDINGS HORMONE TSH BLOOD 11896 LAB DIEGO LAB DIEGO COUNT 4 OF DARRYL COMPLETE DARRYL HOLDINGS AUTOMATED HOLDINGS COMPREHEN 05520 LAB DIEGO LAB DIEGO SIVE 4 OF DARRYL METABOLIC DARRYL HOLDINGS PANEL HOLDINGS LIPID 13605 LAB DIEGO LAB DIEGO PANEL 4 OF DARRYL DARRYL HOLDINGS HOLDINGS CREATINE 81304 LAB DIEGO LAB DIEGO KINASE 4 OF DARRYL TOTAL DARRYL HOLDINGS HOLDINGS COLLECTIO 98340 CHENCHO AMADO N VENOUS 4 CLINIC SE [...] LLC LLC PNEUMAT NEBULIZR DISPBL IM ADM 10472 CHENCHO HUTCHINS- PRQ ID 4 CLINIC [facility] [place] SUBQ/IM NJXS 1 VACCINE IIV3 80392 CHENCHO HUTCHINS- VACCINE 4 [facility] [place] SPLIT VIRUS 0.5 ML DOSAGE IM USE O2 CONC 1 E1390 NAOMIE CARRION [place] 4 HOME HOME 85%/>02 MEDICAL MEDICAL CONC AT EQUIPME EQUIPME PRSC FLW RATE ADMN SET A7003 YOUR YOUR SM VOL 3 PHARMACY PHARMACY NONFILTR [employer] [facility] PNEUMAT NEBULIZR DISPBL O2 CONC 1 E1390 NAOMIE AKBAR [facility] PORT 3 HOME HOME 85%/>02 MEDICAL MEDICAL CONC AT EQUIPME EQUIPME PRSC FLW RATE O2 CONC 1 E1390 NAOMIE CARRION [place] 3 HOME HOME 85%/>02 MEDICAL MEDICAL CONC AT EQUIPME EQUIPME PRSC FLW RATE ADMN SET A7003 YOUR YOUR SM VOL 3 PHARMACY PHARMACY [employer] PNEUMAT NEBULIZR DISPBL DUPLEX 46147 [employer], [employer], SCAN 3 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 EXTRACRAN JESSIE ROMAN IAL ART CO HOS CO HOS COMPL BI STUDY LIPID 54035 LAB DIEGO LAB DIEGO PANEL 3 DARRYL DARRYL HOLDINGS HOLDINGS GENERAL 57508 LAB DIEGO LAB DIEGO HEALTH 3 DARRYL DRARYL PANEL HOLDINGS HOLDINGS O2 CONC 1 E1390 NAOMIE AKBAR [place] 3 HOME HOME 85%/>02 MEDICAL MEDICAL CONC AT EQUIPME EQUIPME PRSC FLW RATE ADMN SET A7003 YOUR YOUR SM VOL 3 PHARMACY PHARMACY NONFILTR [employer] PNEUMAT NEBULIZR DISPBL O2 CONC 1 E1390 NAOMIE AKBAR [facility] 3 HOME HOME 85%/>02 MEDICAL MEDICAL CONC AT EQUIPME EQUIPME PRSC FLW RATE ADMN SET A7003 YOUR YOUR SM VOL 3 [facility] PNEUMAT NEBULIZR DISPBL O2 CONC 1 E1390 NAOMIE AKBAR [facility] 3 HOME HOME 85%/>02 MEDICAL MEDICAL CONC AT EQUIPME EQUIPME PRSC FLW RATE COMPREHEN 41487 LAB DIEGO LAB DIEGO SIVE 3 OF AMERIC METABOLIC DARRYL HOLDING PANEL HOLDINGS LIPID 96327 LAB DIEGO LAB DIEGO PANEL 3 OF AMERIC DARRYL HOLDING HOLDINGS CREATINE 55891 LAB DIEGO LAB DIEGO KINASE 3 OF AMERIC TOTAL DARRYL HOLDING HOLDINGS BLOOD 48011 LAB DIEGO LAB DIEGO COUNT 3 OF AMERIC COMPLETE DARRYL [place] [address] LAB DIEGO LAB DIEGO THYROID 3 OF AMERIC STIMULATI DARRYL HOLDING NG HOLDINGS HORMONE TSH ADMN SET A7003 YOUR YOUR SM VOL 3 PHARMACY PH[facility]ACY [facility] PNEUMAT NEBULIZR DISPBL O2 CONC 1 E1390 [facility] 3 HOME HOME 85%/>02 MEDICAL MEDICAL CONC AT EQUIPME EQUIPME PRSC FLW RATE ADMN SET A7003 YOUR YOUR SM VOL 3 PHARMACY PHARMAC[facility] PNEUMAT NEBULIZR DISPBL LOCM Q9967 [facility] 300-399 3 MG/ML DIAGNOSTI DIAGNOSTI IODINE C CENTER, C CENTER, CONCENTRA TION PER ML CT SOFT 81678 [facility] TISSUE 3 NECK DIAGNOSTI DIAGNOSTI W/CONTRAS C CENTER, C CENTER, T MATERIAL CT THORAX 33284 [facility] 3 W/CONTRAS DIAGNOSTI DIAGNOSTI T C CENTER, C CENTER, MATERIAL O2 CONC 1 E1390 [facility] 3 HOME HOME 85%/>02 MEDICAL MEDICAL CONC AT EQUIPME EQUIPME PRSC FLW RATE ADMN SET A7003 YOUR YOUR SM VOL 3 PHARMACY PHARMACY [facility] PNEUMAT NEBULIZR DISPBL O2 CONC 1 E1390 [facility] 3 HOME HOME 85%/>02 MEDICAL MEDICAL CONC AT EQUIPME EQUIPME PRSC FLW RATE ADMN SET A7003 YOUR YOUR SM VOL 3 PHARMACY PHARMACY NONFILTR [facility] LLC PNEUMAT NEBULIZR DISPBL O2 CONC 1 E1390 NAOMIE CARRION [place] 3 HOME HOME 85%/>02 MEDICAL MEDICAL CONC AT EQUIPME EQUIPME PRSC FLW RATE ADMN SET A7003 YOUR YOUR SM VOL 3 PHARMACY PHARMACY NONFILTR [facility] LLC PNEUMAT NEBULIZR DISPBL O2 CONC 1 E1390 NAOMIE CARRION [place] 3 HOME HOME 85%/>02 MEDICAL MEDICAL CONC AT EQUIPME EQUIPME PRS FLW RATE NEBULIZER E0570 NAOMIE AKBAR WITH 3 HOME HOME COMPRESSO MEDICAL MEDICAL R EQUIPME EQUIPME ADMN SET A7003 YOUR YOUR SM VOL 3 PHARMACY [facility] PNEUMAT NEBULIZR DISPBL CYANOCOBA 69693 LAB DIEGO LAB DIEGO JENNY 3 DARRYL DARRYL VITAMIN HOLDINGS HOLDINGS B-12 [place] [address] LAB DIEGO LAB DIEGO FOLIC 3 DARRYL DARRYL ACID HOLDINGS HOLDINGS SERUM BLOOD 56055 LAB DIEGO LAB DIEGO COUNT 3 DARRYL DARRYL COMPLETE HOLDINGS HOLDINGS AUTO&AUTO DIFRNTL WBC ADMN SET A7003 YOUR YOUR SM VOL 3 PHARMACY [facility] [place] [address] LAB DIEGO LAB DIEGO THYROID 3 DARRYL DARRYL STIMULATI HOLDINGS HOLDINGS NG HORMONE TSH LIPID 17766 LAB DIEGO LAB DIEGO PANEL 3 DARRYL DARRYL HOLDINGS HOLDINGS COMPREHEN 96036 LAB DIEGO LAB DIEGO SIVE 3 DARRYL DARRYL METABOLIC HOLDINGS HOLDINGS PANEL CT THORAX 00164 [facility] W/O 3 Y Y [facility] MATERIAL O2 CONC 1 E1390 NAOMIE CARRION [place] 3 HOME HOME 85%/>02 MEDICAL MEDICAL CONC AT EQUIPME EQUIPME PRSC FLW RATE ADMN SET A7003 YOUR YOUR SM VOL 2 PHARMACY [facility] PNEUMAT NEBULIZR DISPBL O2 CONC 1 E1390 NAOMIE CARRION [place] 2 HOME HOME 85%/>02 MEDICAL MEDICAL CONC AT EQUIPME EQUIPME PRSC FLW RATE CT THORAX 48183 ATTILI ATTILI 2 ANI ANI W/CONTRAS T MATERIAL CT SOFT 21316 RHONDA KHAN TISSUE 2 NECK W/CONTRAS T MATERIAL ADMN SET A7003 YOUR YOUR SM VOL 2 PHARMACY [facility] PNEUMAT NEBULIZR DISPBL O2 CONC 1 E1390 NAOMIE NAOMIE DEL [place] 2 HOME HOME 85%/>02 MEDICAL MEDICAL CONC AT EQUIPME EQUIPWY PRS FLW RATE ADMN SET A7003 YOUR YOUR SM VOL 2 PHARMACY PHARMACY NONFILTR LLC LLC PNEUMAT NEBULIZR DISPBL O2 CONC 1 E1390 NAOMIE NAOMIE [place] 2 HOME HOME 85%/>02 MEDICAL MEDICAL CONC AT EQUIPME EQUIPME PRS FLW RATE ADMN SET A7003 YOUR YOUR SM VOL 2 PHARMACY [facility] PNEUMAT NEBULIZR DISPBL IIV3 22782 MARGO LEESN VACCINE 2 Apr SPLIT VIRUS 0.5 ML DOSAGE IM USE IM ADM 69618 MARGO ARAGON PRQ ID 2 Apr SUBQ/IM NJXS 1 VACCINE O2 CONC 1 E1390 [facility] 2 HOME HOME 85%/>02 MEDICAL MEDICAL CONC AT EQUIPME EQUIPWY PRSC FLW RATE ADMN SET A7003 YOUR YOUR SM VOL 2 PHARMACY [facility] PNEUMAT NEBULIZR DISPBL O2 CONC 1 E1390 [facility] 2 HOME HOME 85%/>02 MEDICAL MEDICAL CONC AT EQUIPME [facility] PRS FLW RATE ADMN SET A7003 YOUR YOUR SM VOL 2 PHARMACY PHARMACY NONFIL [employer] [facility] PNEUMAT NEBULIZR DISPBL POLYSOM 02772 [employer], [employer], 6/>YRS 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 SLEEP 4/> JESSIE ROMAN ADDL CO HOS CO HOS YESENIA ATTND COMPRE 42948 [facility] AUDIOMETR 2 Y Y Y HOSPITAL HOSPITAL THRESHOLD EVAL SP RECOGNIJ TYMPANOME 36458 [facility] 2 Y Y HOSPITAL HOSPITAL O2 CONC 1 E1390 NAOMIE AKBAR [facility] PORT 2 HOME HOME 85%/>02 MEDICAL MEDICAL CONC AT EQUIPME EQUIPME PRSC FLW RATE ADMN SET A7003 YOUR YOUR SM VOL 2 PHARMACY PHARMACY NONFILTR LLC LLC PNEUMAT NEBULIZR DISPBL O2 CONC 1 E1390 NAOMIE AKBAR [facility] PORT 2 HOME HOME 85%/>02 MEDICAL MEDICAL CONC AT EQUIPME EQUIPME PRSC FLW RATE ADMN SET A7003 YOUR YOUR SM VOL 2 PHARMACY PHARMACY NONFILTR LLC LLC PNEUMAT NEBULIZR DISPBL LOCM Q9967 [facility] 300-399 2 Y Y MG/ML [facility] HOSPITAL IODINE CONCENTRA TION PER ML CT SOFT 11360 [facility] [address] [facility] W/CONTRAS T MATERIAL CT THORAX 83414 [place] PAYNE 2 MEDICAL KAMILA W/CONTRAS SERV T FOUNDATIO MATERIAL CREATININ 84499 [facility] E BLOOD 2 Y Y HOSPITAL HOSPITAL O2 CONC 1 E1390 NAOMIE AKBAR [facility] 2 HOME HOME 85%/>02 MEDICAL MEDICAL CONC AT EQUIPME EQUIPME PRSC FLW RATE ADMN SET A7003 YOUR YOUR SM VOL 2 PHARMACY PHARMACY NONFILTR LLC LLC PNEUMAT NEBULIZR DISPBL O2 CONC 1 E1390 NAOMIE AKBAR [facility] 2 HOME HOME 85%/>02 MEDICAL MEDICAL CONC AT EQUIPME EQUIPME PRSC FLW RATE ADMN SET A7003 YOUR YOUR SM VOL 2 PHARMACY PHARMACY NONFILTR [employer] PNEUMAT NEBULIZR DISPBL LOCM Q9967 [employer], [phone] 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 MG/ML JESSIE JESSIE IODINE CO HOS CO HOS CONCENTRA TION PER ML CTA ABDL 03451 [employer], [employer], AORTA&BI 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 ILIOFEM JESSIE JESSIE W/CONTRAS CO HOS CO HOS T&POSTP CREATININ 90887 [employer], [employer], E BLOOD 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 JESS[place] [address] [employer], [employer] INC, UREA 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 NITROGEN JESSIE ROMAN QUANTITAT CO HOS CO HOS [place] O2 CONC 1 E1390 NAOMIE AKBAR [place] 2 HOME HOME 85%/>02 MEDICAL MEDICAL CONC AT EQUIPME EQUIPME PRSC FLW RATE ADMN SET A7003 YOUR YOUR SM VOL 2 PHARMACY PHARMACY NONFILTR [employer] [facility] PNEUMAT NEBULIZR DISPBL O2 CONC 1 E1390 NAOMIE AKBAR [place] 2 HOME HOME 85%/>02 MEDICAL MEDICAL CONC AT EQUIPME EQUIPME PRSC FLW RATE PILLW A7033 YOUR YOUR NASL 2 PHARMACY PHARMACY CANNULA [employer] [facility] TYPE INTERFCE REPL ONLY PAIR EVAL 21907 [facility] SPEECH 2 Y Y [facility] 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 Y PROC BLOOD 94263 JESSIE ROMAN COUNT 2 CO CO [facility] AUTO&AUTO DIFRNTL WBC BASIC 04300 JESSIE ROMAN METABOLIC 2 CO CO [facility] CALCIUM TOTAL RADIOLOGI 46462 [facility] C EXAM 2 NGOZI CHEST 2 RADIOLOGY VIEWS ASSOCIAT FRONTAL&L ATERAL RADIOLOGI 82574 JESSIE ROMAN C 2 CO [facility] SOFT TISSUE ADMN SET A7003 YOUR YOUR SM VOL 1 PHARMACY PHARMACY [employer] [facility] PNEUMAT NEBULIZR DISPBL IM ADM 17778 TAMSTIVEN LEESN PRQ ID 1 Apr SUBQ/IM NJXS 1 VACCINE IIV3 92375 TAMAREN TAMAREN VACCINE Apr SPLIT VIRUS 0.5 ML DOSAGE IM USE CT SOFT 67596 AMATO AMATO TISSUE 1 JONATNA JONATAN NECK W/CONTRAS T MATERIAL CT THORAX 99282 [facility] UN[facility]ERS[facility] 1 Y Y [facility] T MATERIAL ADMN SET A7003 YOUR YOUR SM VOL 1 PHARMACY PHARMACY NONFILTR [employer] PNEUMAT NEBULIZR DISPBL LOCM Q9967 [facility]ERSIT UNIVERSIT 300-399 1 Y Y MG/ML [facility] HOSPITAL IODINE CONCENTRA TION PER ML VISUAL 96050 ROCCO VALIENTE FIELD XM 1 GRE GRE UNI/BI W/INTERP EXTENDED EXAM RADEX 03482 HAGENSCHN HAGENSCHN SPINE 1 EIDER ULICES EIDER ULICES LUMBOSACR AL MINIMUM 4 VIEWS ADMN SET A7003 YOUR YOUR SM VOL 1 PHARMACY PHARMACY NONFILSurgeonKidz PNEUMAT NEBULIZR DISPBL RADIOLOGI 15286 JESSIE Jimenez EXAM 1 CO CO CHEST 2 [facility] HOSPITAL VIEWS FRONTAL&L ATERAL PRESSURIZ 78118 CHENCHO ARAGON ED/NONPRE 1 CLINIC CECILIA SSURIZED [place] [address] [facility] FREE 1 Y Y THYROXINE [facility] HOSPITAL COLLECTIO 12593 [facility] N VENOUS Y Y BLOOD [facility] VENIPUNCT URE GENERAL 82587 [facility] Y Y PANEL [facility] COMPREHEN 37390 MEADOWVIE MEADOWVIE SIVE 1 W W METABOLIC [facility] PANEL MEDICAL MEDICAL COLLECTIO 88697 MEADOWVIE MEADOWVIE N VENOUS 1 W W BLOOD [facility] [place] [address] MEADOWVIE MEADOWVIE FREE 1 W W THYROXINE [facility] [place] [address] MEADOWVIE MEADOWVIE THYROID 1 W W STIMULATI REGIONAL REGIONAL NG MEDICAL MEDICAL HORMONE TSH BLOOD 89828 MEADOWVIE MEADOWVIE COUNT 1 W W COMPLETE REG[facility]AL REGIONAL AUTOMATED MEDICAL MEDICAL LARYNGOSC 00751 TIFFANIE BRUMFIELD OPY 1 MEDICAL FLEXIBLE SERV DIAGNOSTI FOUNDATIO C PET 10081 [facility] [address] RADIOLOGY ATTENUATI ASSOCIAT [place] [address] JESSIE ROMAN THYROID 1 CO [facility] [address] JESSIE ROMAN THYROXINE 1 CO CO TOTAL [facility] [place] [address] LABONE OF LABONE OF THYROID 1 [facility] INC [facility] [address] [facility] 1 Y Y [facility]IT[facility]OGEN HOSPITAL HOSPITAL QUANTITAT [place] CREATININ 35513 [facility] E BLOOD 1 Y Y HOSPITAL HOSPITAL LARYNGOSC 02063 TIFFANIE FROST OPY 1 MEDICAL CECILIA FLEXIBLE SERV DIAGNOSTI FOUNDATIO C COLLECTIO 21834 [facility] N VENOUS [address] [facility] VENIPUNCT URE CT SOFT 42708 [facility] TISSUE 1 Y NECK HOSPITAL W/CONTRAS T MATERIAL CT THORAX 31583 [facility] 1 Y Y W/CONTRAS HOSPITAL HOSPITAL T MATERIAL COLLECTIO 32349 MEADOWVIE MEADOWVIE N VENOUS 1 W W BLOOD [facility] REGIONAL VENIPUNCT MEDICAL MEDICAL URE COMPREHEN 37266 MEADOWVIE MEADOWVIE SIVE 1 W W METABOLIC REGIONAL [place]ION[place] [address] MEADOWVIE MEADOWVIE THYROID 1 W W STIMULATI [facility] NG [place] [address] MEADOWVIE MEADOWVIE FREE 1 W W THYROXINE [facility] MEDICAL MEDICAL BLOOD 37039 MEADOWVIE MEADOWVIE COUNT 1 W W COMPLETE [facility] [place] [address] KUSH CURRIE SWALLOWIN 1 [facility] DYSFUNCTI ON&/[place] [address] KUSH CURRIE SWALLOWIN 1 [facility] DYSFUNCTI ON&/[place] [address] KUSH CURRIE [place]ALLOWIN 1 [facility] DYSFUNCTI ON&/[place] [address] LABONE OF LABONE OF THYROID 1 [facility] STIMULATI NG HORMONE TSH COLLECTIO 75617 [facility] N VENOUS 1 ETH[place] [address] KUSH CURRIE [place]ALL[place] 1 [facility] DYSFUNCTI ON&/[place] [address] KUSH CURRIE SWALLOWIN 1 [facility] DYSFUNCTI ON&/[place] [address] LABONE OF LABONE OF THYROID 1 [facility] [address] KUSH CURRIE SWALLOWIN 1 [facility] DYSFUNCTI ON&/[place] [address] KUSH CURRIE SWALLOWIN 1 [facility] DYSFUNCTI ON&/ORAL FUNCJ FEEDING LARYNGOSC 206[address] [place] SANT[place] OPY 1 MEDICAL CECILIA [place] [address] KUSH CURRIE SWALLOWIN 0 [facility] DYSFUNCTI ON&/[place] [address] KUSH CURRIE SWALLOWIN 0 [facility] DYSFUNCTI ON&/[place] [address] MEADOWVIE MEADOWVIE THYROID 0 W W STIMULATI [facility] [place] [address] MEADOWVIE MEADOWVIE FREE 0 W W THYROXINE [facility] MEDICAL MEDICAL BLOOD 42665 MEADOWVIE MEADOWVIE COUNT 0 W W COMPLETE [facility] AUTOMATED MEDICAL MEDICAL COLLECTIO 97000 MEADOWVIE MEADOWVIE N VENOUS 0 W W BLOOD [facility] VENIPUNCT MEDICAL MEDICAL URE COMPREHEN 95633 MEADOWVIE MEADOWVIE SIVE 0 W W METABOLIC [facility] [place] [address] [facility] CURRIE SWALLOWIN 0 [facility] DYSFUNCTI ON&/[place] [address] KUSH CURRIE SWALLOWIN 0 [facility] DYSFUNCTI ON&/[place] [address] KUSH CURRIE SWALLOWIN 0 [facility] DYSFUNCTI ON&/[place] [address] KUSH CURRIE [place] 0 [facility] DYSFUNCTI ON&/[place] [address] KUSH CURRIE [place]IN 0 [facility] DYSFUNCTI ON&/[place] [address] KUSH CURRIE [place] 0 [facility] DYSFUNCTI ON&/ORAL FUNCJ FEEDING TAPE A4450 [...] & & [place] [address] KUSH CURRIE [place] 0 [facility] DYSFUNCTI ON&/[place] [address] KUSH CURRIE [place] 0 [facility] DYSFUNCTI ON&/[place] [address] KUSH CURRIE [place] 0 [facility] DYSFUNCTI ON&/[place] [address] KUSH CURRIE SW[place] 0 [facility] DYSFUNCTI ON&/[place]AL [place] [address] [facility] [address] RADIOLOGY ATTENUATI [place] [address] KUSH CURRIE [place] 0 [facility] DYSFUNCTI ON&/[place] [address] KUSH CURRIE [place] 0 [facility] DYSFUNCTI ON&/[place] [address] KUSH CURRIE [place] 0 [facility] DYSFUNCTI ON&/[place] [address] KUSH CRURIE SWALLOWIN 0 [facility] DYSFUNCTI ON&/[place] [address] KUSH CURRIE SWALL[place] 0 [facility] DYSFUNCTI ON&/ORAL FUNCJ FEEDING ENTERAL B4034 KUSH CURRIE FEEDING 0 CO HOSP CO HOSP SUPPLY MED EQUIP MED EQUIP KIT; & & SYRINGE FED PER DAY TAPE A4450 KUSH CURRIE NON-WATER 0 CO HOSP CO HOSP PROOF PER MED EQUIP MED EQUIP 18 & & [place] [address] KUSH CURRIE SWALLOWIN 0 CO CO G [facility] DYSFUNCTI ON&/[place] [address] [facility] IRON 0 [facility] PREALBUMI 89862 [facility] N 0 [facility] [place] [address] [facility] CHLOE QUEST CHLOE ZINC 0 JESSIE ROMAN INSTITUT INSTITUT GENERAL 31015 [facility] HEALTH 0 [facility] PANEL CYANOCOBA 65001 [facility] JENNY 0 [facility] VITAMIN B-12 [place] [address] [facility] FOLIC 0 [facility] [place] [address] KUSH CURRIE SWALLOWIN 0 CO CO G [facility] DYSFUNCTI ON&/ORAL FUNCJ FEEDING CULTURE 90319 JESSIE ROMAN BACTERIAL 0 CO CO [facility] QUANTTATI VE COLONY COUNT URINE ANTIBODY 57315 JESSIE ROMAN HELICOBAC 0 CO CO TER [facility] PYLORI BLOOD 04705 JESSIE ROMAN COUNT [address] [facility] MCRSCP W/[place] [address] JESSIE ROMAN LIPASE 0 CO CO [facility] COMPREHEN 20638 JESSIE ROMAN SIVE 0 CO CO METABOLIC [facility] PANEL URNLS DIP 04960 JESSIE LABORATOR 0 CO Y STICK/TAB HOSPITAL CORPORATI LET ON OF [place] [address] JESSIE ROMAN AMYLASE 0 CO CO [facility] COLLECTIO 66511 JESSIE LABORATOR N VENOUS 0 CO Y BLOOD HOSPITAL CORPORATI VENIPUNCT ON OF AM URE THER 39002 JESSIE ROMAN PROPH/DX [address]X [address] [facility] PUSH SINGLE/1S T SBST/[place] [address] KUSH CURRIE SWALLOWIN 0 CO CO G [facility] DYSFUNCTI ON&/[place] [address] KUSH CURRIE SWALLOWIN 0 CO [facility] DYSFUNCTI ON&/[place] [address] KUSH CURRIE SWALLOWIN 0 CO CO [facility] DYSFUNCTI ON&/ORAL FUNCJ FEEDING MOTION 42803 KUSH CURRIE FLUOR 0 CO CO [facility] FUNCJ C/V REC SWALLOWIN 62908 JESSICA WELDON FUNCJ 0 NGOZI W/CINERAD RADIOLOGY IOGRAPY/[place] [address] KUSH CURRIE SWALLOWIN 0 CO CO [facility] DYSFUNCTI ON&/ORAL FUNCJ FEEDING EVAL 13544 KUSH CURRIE ORAL&PHAR 0 CO [facility] B[facility] 13386 Curriculet MEADOWVIE COUNT 0 W W COMPLETE [facility] AUTOMATED MEDICAL MEDICAL COLLECTIO 30600 InterValveWVIE N VENOUS 0 W W BLOOD [facility] [place] [address] [facility] [address] [facility] INITIAL 31 MIN-[place] [address] [facility] [address] [facility] [place] [address] [facility] THERAPY/P [facility] ROPHYLAXI S /DX 1ST TO 1 HR LARYNGOSC 96237 [facility] OPY W/WO [address] [facility] OPY W/MICRO/T ELESCOPE ANES [address] [place] [facility] ESOPH 0 MEDICAL CORY THYRD SERV LARYNX FOUNDATIO TRACH & LYMPH NECK 1YR ESOPHAGOS 497[address] [place] SANTOSH COPY 0 MEDICAL CECILIA FLEXIBLE SERV TRANSORAL FOUNDATIO DIAGNOSTI C DILATION 98655 [facility] ESOPH [address] [facility] SOUND/YVETTE GIE 1/MULT PASS RINGERS J7120 [facility] HOSPITAL LACTATE 0 Y Y INFUSION [facility]PITAL UP TO 1000 CC INJECTION [id number] [facility] UNIVERS [address] [facility] HCL PER 1 MG INJECTION J1100 [facility] [address] [facility] SONE SODIUM PHOSPHATE 1 MG INJECTION J2710 [facility] [address] [facility] NE METHYLSUL FATE UP TO 0.5 MG INJECTION J3010 [facility] FENTANYL [address] [facility] 0.1 MG INJECTION J0330 [facility] [address] [facility] HOLINE CHLORIDE UP TO [address] SOFT 02902 [facility] TISSUE [address] [facility] W/CONTRAS T MATERIAL COLLECTIO 30782 [facility] N VENOUS [address] [facility] VENIPUNCT URE CT THORAX 35927 [facility] 0 Y Y W/CONTRAS [facility] T MATERIAL CREATININ 30313 [facility] E BLOOD [address] [facility] [place] [place] [address] [facility] UREA [address] [facility] QUANTITAT [place] MOTION 63849 [facility] FLUOR 0 [facility] F[facility] C/V REC SWALLOWIN 34378 JESSICA Benson FUNCJ 0 NGOZI W/CINERAD RADIOLOGY IOGRAPY/[place] [address] JESSIE JESSIE INFUSION 0 CO CO THERAPY/P [facility] S /DX 1ST TO 1 [place] [address] [facility] [address] [facility] PROPHYLAX IS/[place] [address] [facility]ION [address] [facility] PROPHYLAX IS/[place] [address] [facility] 0 CO CO THERAPY/P [facility] S /DX 1ST TO 1 [place] [address] [facility] 0 CO CO THERAPY/P [facility] S /DX 1ST TO 1 [place] [address] [facility] INFUSION 0 CO CO THERAPY HOSPITAL HOSPITAL [place] [address] JESSIE ROMAN INFUSION 0 CO CO THERAPY/P HOSPITAL HOSPITAL ROPHYLAXI S /DX 1ST TO [place] [address] JESSIE ROMAN INFUSION 0 CO CO THERAPY [facility] HOSPITAL PROPHYLAX IS/DX EA HOUR BLOOD 59402 JESSIE ROMAN COUNT 0 CO CO COMPLETE [facility] AUTO&AUTO DIFRNTL WBC CULTURE 96706 JESSIE ROMAN BACTERIAL 0 CO CO BLOOD [facility] AEROBIC W/ID ISOLATES RADIOLOGI 94108 JESSIE ROMAN C EXAM 0 CO CO CHEST 2 [facility] VIEWS FRONTAL&L ATERAL COLLECTIO 42390 JESSIE ROMAN N VENOUS [address] [facility] VENIPUNCT URE URNLS DIP 19234 JESSIE ROMAN 0 CO CO STICK/TAB HOSPITAL HOSPITAL LET REAGENT AUTO MICROSCOP Y COMPREHEN 35299 JESSIE ROMAN SIVE 0 CO CO METABOLIC [facility]OSPITAL PANEL RESP E0600 NAOMIE NAOMIE SUCTION 0 HOME MED HOME MED PUMP HOME EQUIP. L EQUIP. L MODEL PRTBLE/ST ATION ELEC TAPE A4450 KUSH CURRIE NON-WATER 0 CO HOSP CO HOSP PROOF PER MED EQUIP MED EQUIP 18 & & SQUARE INCHES COMPREHEN 21791 MEADOWVIE MEADOWVIE SIVE 0 W W [facility] COLLECTIO 26717 NIKITA HILLWVIE N VENOUS 0 W W BLOOD [facility] VENIPUNCT MEDICAL MEDICAL FIELD [facility] CENTER BLOOD 33383 MEADOWVIE MEADOWVIE COUNT 0 W W COMPLETE [facility] AUTOMATED [facility] [place] [address] ONCOLOGY JAJA, INFUSION 0 HEMATOLOG BRITTANY Virgen HYDRATION Y CARE INITIAL INC 31 MIN-1 HOUR BLOOD 34099 CURRIE CURRIE COUNT [address] [facility] AUTO&AUTO DIFRNTL WBC COMPREHEN 22900 CURRIE CURRIE SIVE 0 CO CO [facility] PANEL RADEX 62648 [place] HAGENSCHN SPINE 0 EIDER, LUMBOSACR RADIOLOGY NANDINI WILKINSON 2/3 K VIEWS ASSOCIATE S PSC SBSQ 24491 [facility] 0 CLINIC CHAMP CARE/DAY PSC 15 MINUTES RADIOLOGI 48469 YORKBarbara GALO EXAM 0 CECI Jimenez CHEST 2 RADIOLOGY VIEWS FRONTAL&L ASSOCIATE ATERAL S PSC OBSERVATI 84163 MAILE GR ON CARE 0 , MINOR , MINOR DISCHARGE MANAGEMEN T INITIAL 76006 MAILE ESTRADAINI OBSERVATI 0 , MINOR , MINOR ON CARE/DAY 70 MINUTES HOSPITAL G0378 JESSIE ROMAN OBSERVATI 0 CO CO ON HOSPITAL HOSPITAL SERVICE PER HOUR RADEX 75707 JESSICA WELDON, ABDOMEN 1 0 CECI Jimenez RADIOLOGY ANTEROPOS TERIOR ASSOCIATE VIEW S PSC RADEX ABD 93836 JESSIE ROMAN COMPL [address]BD [facility] W/S/E/D VIEWS 1 VIEW CH COLLECTIO 67036 JESSIE ROMAN N VENOUS [address] [facility] VENIPUNCT URE RADIOLOGI 25640 Barbara TINSLEY 0 CECI Jimenez EXAMINATI RADIOLOGY ON CHEST SINGLE ASSOCIATE VIEW S PSC FRONTAL COMPREHEN 09469 JESSIE ROMAN SIVE [address] [facility] PANEL BLOOD 47598 JESSIE ROMAN COUNT [address] [facility] AUTO&AUTO DIFRNTL WBC BLOOD 35961 JESSIE ROMAN COUNT [address] [facility] MCRSCP W/MNL DIFRNTL WBC COUNT THROMBOPL 57525 JESSIE ROMAN ASTIN [address] [facility] PARTIAL PLASMA/WH OLE BLOOD PROTHROMB 25383 JESSIE ROMAN IN TIME [address] [facility] [place] [address] JESSIE ROMAN INFUSION 0 CO CO THERAPY/P [facility] ROPHYLAXI S /DX 1ST TO 1 HR THER 19646 JESSIE ROMAN PROPH/DX 0 CO CO NJX IV [facility] HOSPITAL PUSH SINGLE/1S T SBST/[place] [address] JESSIE ROMAN INFUSION 0 CO CO HYDRATION HOSPITAL HOSPITAL INITIAL 31 MIN-1 HOUR RADJ DLVR 95465 [place] I[place] 3/> 0 MEDICAL PRA AREAS SERV CUSTOM FOUNDATIO BLKING 6-10MEV RADJ DLVR 28595 [place] I[place] 3/> 0 MEDICAL PRA AREAS SERV CUSTOM FOUNDATIO BLKING 6-10MEV RADIATION 89415 [place] INA 0 MEDICAL PRA TREATMENT SERV FOUNDATIO MANAGEMEN T 5 TREATMENT S RADJ DLVR 93374 [place] I[place] 3/> 0 MEDICAL PRA AREAS SERV CUSTOM FOUNDATIO BLKING 6-10MEV RADJ DLVR 23210 [place] I[place] 3/> 0 MEDICAL PRA AREAS SERV CUSTOM FOUNDATIO BLKING 6-10MEV THERAPEUT 27124 [place] I[place] IC 0 MEDICAL PRA RADIOLOGY SERV PORT FOUNDATIO IMAGES(S) RADIATION 96334 [place] INA 0 MEDICAL PRA TREATMENT SERV FOUNDATIO MANAGEMEN T 5 TREATMENT S COMPREHEN 72908 NIKITA OLSONVIE SIVE 0 W W METABOLIC [facility] C[facility] COLLECTIO 19152 NIKITA SHELTON N VENOUS 0 W W BLOOD [facility] CONTINUIN 41187 [place] G MEDICAL 0 MEDICAL PRA PHYSICS SERV CONSLTJ [place]OUNDATIO [place] THERAPEUT 03236 ONCOLOGY JAJA CHR IC 0 HEMATOLOG INJECTION Y [place] [address] ONCOLOGY JAJA CHR INFUSION 0 HEMATOLOG THER Y CARE IN PROPH ADDL SEQUENT[place] L [place] [address] ONCOLOGY JAJA CHR INFUSION 0 HEMATOLOG HYDRATION Y CARE IN EACH ADDITIONA L HOUR BLOOD 77226 NIKITA SHELTON COUNT 0 W W COMPLETE [facility] INJECTION J2469 ONCOLOGY ONCOLOGY 0 HEMATOLOG HEMATOLOG [place] Y CARE IN Y CARE IN OCTAVIANO HCL 25 MCG INJECTION J9060 ONCOLOGY JAJA CHR 0 HEMATOLOG CISPLATIN Y CARE IN POWDER OR SOLUTION 10 MG CHEMOTX 89388 ONCOLOGY JAJA CHR ADMN IV 0 HEMATOLOG NFS TQ UP Y CARE IN 1 HR SBST/DRUG RADJ DLVR 87167 [place] I[place] 3/> 0 MEDICAL PRA AREAS SERV CUSTOM FOUNDATIO BLKING 6-10MEV RADJ DLVR 25500 [place] I[place] 3/> 0 MEDICAL PRA AREAS SERV CUSTOM FOUNDATIO BLKING 6-10MEV CONTINUIN 49791 [place] G MEDICAL 0 MEDICAL PRA PHYSICS SERV CONSLTJ FOUNDATIO [place] RADJ DLVR 19910 [place] I[place] 3/> 0 MEDICAL PRA AREAS SERV CUSTOM FOUNDATIO BLKING 6-10MEV RADJ DLVR 65544 [place] I[place] 3/> 0 MEDICAL PRA AREAS SERV CUSTOM FOUNDATIO BLKING 6-10MEV RADJ DLVR 83183 [place] I[place] 3/> 0 MEDICAL PRA AREAS SERV CUSTOM FOUNDATIO BLKING 6-10MEV RADIATION 19496 [place] I[place] 0 MEDICAL PRA TREATMENT SERV FOUNDATIO MANAGEMEN T 5 TREATMENT S RADJ DLVR 82982 [place] I[place] 3/> 0 MEDICAL PRA AREAS SERV CUSTOM FOUNDATIO BLKING 6-10MEV GENERAL 12882 [facility] [place] INC PANEL LIPID 05733 [facility] PANEL 0 [place] INC [place] INC RADJ DLVR 38134 [place] 3/> 0 MEDICAL PRA AREAS SERV CUSTOM FOUNDATIO BLKING 6-10MEV BASIC 92859 [place] RADIATION 0 MEDICAL PRA SERV DOSIMETRY FOUNDATIO CALCULATI ON TELETHERA 34302 [place] PY 0 MEDICAL PRA ISODOSE SERV PLAN FOUNDATIO COMPLETE THER RAD 43342 [place] SIMULAJ-A 0 MEDICAL PRA IDED SERV FIELD FOUNDATIO SETTING SIMPLE CONTINUIN 92959 [place] G MEDICAL 0 MEDICAL PRA [place] [address] [place] DEVICES 0 MEDICAL PRA DESIGN & SERV CONSTRUCT FOUNDATIO ION COMPLEX RADJ DLVR 51946 [place] I[place] 3/> 0 MEDICAL PRA AREAS SERV CUSTOM FOUNDATIO BLKING 6-10MEV RADIATION 49111 [place] INA 0 MEDICAL PRA TREATMENT SERV FOUNDATIO MANAGEMEN T 5 TREATMENT S RADJ DLVR 21539 [place] ZHANE, 3/> 0 MEDICAL DAVID AREAS SERV CUSTOM FOUNDATIO BLKING 6-10MEV RADJ DLVR 17469 [place] ZHANE, 3/> 0 MEDICAL DAVID AREAS SERV CUSTOM FOUNDATIO BLKING 6-10MEV CONTINUIN 36111 [place] G MEDICAL 0 MEDICAL PRA PHYSICS SERV CONSLTJ FOUNDATIO [place] RADJ DLVR 46300 [place] I[place] 3/> 0 MEDICAL PRA AREAS SERV CUSTOM FOUNDATIO BLKING 6-10MEV RADIATION 72024 [place] INA 0 MEDICAL PRA TREATMENT SERV FOUNDATIO MANAGEMEN T 5 TREATMENT S RADJ DLVR 03118 [place] 3/> 0 MEDICAL PRA AREAS SERV CUSTOM FOUNDATIO BLKING 6-10MEV COMPREHEN 82183 NIKITA SHELTON SIVE 0 W W METABOLIC [facility] BASIC 03793 [place] RADIATION 0 MEDICAL PRA SERV DOSIMETRY FOUNDATIO CALCULATI ON TELETHERA 94145 [place] PY 0 MEDICAL PRA ISODOSE SERV PLAN FOUNDATIO COMPLETE COLLECTIO 33178 NIKITA SHELTON N VENOUS 0 W W BLOOD [facility] B[facility] 72652 NIKITA SHELTON COUNT 0 W W COMPLETE [facility] RADJ DLVR 03346 [place] I[place] 3/> 0 MEDICAL PRA AREAS SERV CUSTOM FOUNDATIO BLKING 6-10MEV RADJ DLVR 06079 [place] 3/> 0 MEDICAL PRA AREAS SERV CUSTOM FOUNDATIO BLKING 6-10MEV LARYNGOSC 09544 [place] S[place] OPY 0 MEDICAL , HANNAH FLEXIBLE SERV DIAGNOSTI FOUNDATIO C RADJ DLVR 71315 [place] 3/> 0 MEDICAL PRA AREAS SERV CUSTOM FOUNDATIO BLKING 6-10MEV RADJ DLVR 11493 [place] I[place] 3/> 0 MEDICAL PRA AREAS SERV CUSTOM FOUNDATIO BLKING 6-10MEV THERAPEUT 69883 [place] IC 0 MEDICAL PRA RADIOLOGY SERV PORT FOUNDATIO IMAGES(S) CONTINUIN 78930 [place] G MEDICAL 0 MEDICAL PRA PHYSICS SERV CONSLTJ FOUNDATIO [place] RADJ DLVR 15789 [place] I[place] 3/> 0 MEDICAL PRA AREAS SERV CUSTOM FOUNDATIO BLKING 6-10MEV RADIATION 00198 [place] INA 0 MEDICAL PRA TREATMENT SERV FOUNDATIO MANAGEMEN T 5 TREATMENT S RADJ DLVR 86564 [place] I[place] 3/> 0 MEDICAL PRA AREAS SERV CUSTOM FOUNDATIO BLKING 6-10MEV RADJ DLVR 20242 [place] I[place] 3/> 0 MEDICAL PRA AREAS SERV CUSTOM FOUNDATIO BLKING 6-10MEV RADJ DLVR 84322 [place] I[place] 3/> 0 MEDICAL PRA AREAS SERV CUSTOM FOUNDATIO BLKING 6-10MEV RADJ DLVR 59022 [place] 3/> 0 MEDICAL PRA AREAS SERV CUSTOM FOUNDATIO BLKING 6-10MEV THERAPEUT 66677 [place] I[place] IC 0 MEDICAL PRA RADIOLOGY SERV PORT FOUNDATIO IMAGES(S) CONTINUIN 12694 [place] G MEDICAL 0 MEDICAL PRA PHYSICS SERV CONSLTJ FOUNDATIO [place] RADIATION 40773 [place] INA 0 MEDICAL PRA TREATMENT SERV FOUNDATIO MANAGEMEN T 5 TREATMENT S RADJ DLVR 51305 [place] 3/> 0 MEDICAL PRA AREAS SERV CUSTOM FOUNDATIO BLKING 6-10MEV RADJ DLVR 23295 [place] I[place] 3/> 0 MEDICAL PRA AREAS SERV CUSTOM FOUNDATIO BLKING 6-10MEV RADJ DLVR 51523 [place] I[place] 3/> 0 MEDICAL PRA AREAS SERV CUSTOM FOUNDATIO BLKING 6-10MEV RADJ DLVR 40763 [place] 3/> 0 MEDICAL PRA AREAS SERV CUSTOM FOUNDATIO BLKING 6-10MEV RADJ DLVR 19946 [place] 3/> 0 MEDICAL PRA AREAS SERV CUSTOM FOUNDATIO BLKING 6-10[place] [address] [place] DEVICES 0 MEDICAL PRA DESIGN & SERV CONSTRUCT FOUNDATIO ION COMPLEX THER RAD 95251 [place] SIMULAJ-A 0 MEDICAL PRA IDED SERV FIELD FOUNDATIO SETTING SIMPLE RADIATION 10986 [place] I[place] 0 MEDICAL PRA TREATMENT SERV FOUNDATIO [place]GEMEN T [address] [place] [address] [place] MOJGAN GUIDANCE 0 MEDICAL EDU RADIATION SERV THERAPY FOUNDATIO FLDS PLACEMENT CONTINUIN 85958 [place] G MEDICAL 0 MEDICAL PRA PHYSICS SERV CONSLTJ FOUNDATIO [place] ANES 58968 [place] VITAL STEVIE ESOPH 0 MEDICAL THYRD SERVICES LARYNX TRACH & LYMPH NECK 1YR LARYNGOSC 87229 [place] OPY 0 MEDICAL CECILIA W/BIOPSY SERV MICROSCOP FOUNDATIO E/TELESCO PE EGD 02233 [place] CRHISTINA PERCUTANE 0 MEDICAL RICH OUS SERV PLACEMENT [place] [address] [place] HDZ SURG 0 MEDICAL VARGAS PATHOLOGY SERV FOUNDATIO GROSS&KAMILA ROSCOPIC EXAM L HRT 71953 [place] LINO CATHETERI 0 MEDICAL CALEB ZATION SERV RETROGRAD FOUNDATIO E BRACHIAL PERQ INJECTION 75694 [place] CARDIAC 0 MEDICAL CALEB CATHJ L SERV VENTR/L [place] [address] [place] C-CATHJ 0 MEDICAL CALEB F/SLCTV C SERV ANGRPH FOUNDATIO I SI&R 83044 [place] F/NJX PX 0 MEDICAL CALEB DURING SERV C-CATHJ FOUNDATIO VENTR&/AT R ANGRPH I SI&R 05284 TIFFANIE LINO F/NJX PX 0 MEDICAL CALEB DURING SERV C-CATHJ FOUNDATIO PULM&/OR SELECT ECG 03487 [facility] ROUTINE [address] [facility] W/LEAST 12 LDS TRCG ONLY W/O I&R ECG 50968 TIFFANIE MOJICA ROUTINE 0 MEDICAL NAN ECG SERV W/LEAST FOUNDATIO 12 LDS I&R ONLY CT SOFT 30414 TIFFANIE AMATO TISSUE 0 MEDICAL JONATAN NECK SERV W/CONTRAS FOUNDATIO T MATERIAL CT THORAX 59706 [place] ATTILI 0 MEDICAL ANI W/CONTRAS SERV T FOUNDATIO MATERIAL COLLECTIO 95579 [facility] N VENOUS [address] [facility] VENIPUNCT URE COMPREHEN 26738 [facility] SIVE [address] [facility] PANEL BLOOD 51460 [facility] COUNT 0 Y Y COMPLETE [facility] AUTOMATED PROTHROMB 38394 [facility] IN TIME 0 Y Y HOSPITAL [facility] THROMBOPL 67442 [facility] ASTIN [address] [facility] PARTIAL PLASMA/[place] [address] [facility] FREE [address] [facility] [place] [address] [facility] THYROID [address] [facility] NG HORMONE TSH CT THORAX [address] [place] [address] JOAQUÍN S W/CONTRAS RADIOLOGY T MATERIAL ASSOCIATE S PSC ADMN SET A7003 YOUR YOUR SM VOL 8 PHARMACY PHARMACY NONFILTR [facility] PNEUMAT NEBULIZR DISPBL THER 82971 JESSIE ROMAN PROPH/DX 8 CO CO [facility] SUBQ/IM THER 39988 JESSIE ROMAN PROPH/DX 8 CO CO [facility] SUBQ/IM THER 12551 JESSIE ROMAN PROPH/DX 8 CO CO [facility] SUBQ/IM RADIOLOGI 13218 JESSIE ROMAN C EXAM 8 CO CO CHEST [address] [facility] VIEWS FRONTAL&L ATERAL O2 CONC 1 E1390 NAOMIE AKBAR [place] [address] HOME MED HOME MED 85%/>02 EQUIP. EQUIP. CONC AT [facility] FLW RATE O2 CONC 1 E1390 NAOMIE AKBAR [place] [address] HOME MED HOME MED 85%/>02 EQUIP. EQUIP. CONC AT [facility] FLW RATE O2 CONC 1 E1390 NAOMIE AKBAR [place] [address] HOME MED HOME MED 85%/>02 EQUIP. EQUIP. CONC AT [facility] FLW RATE LIPID 97186 [facility] PANEL 8 [facility] CYANOCOBA 74033 [facility] JENNY 8 [facility] VITAMIN B-12 COMPREHEN 81114 [facility] SIVE [address] [place] [address] [place] [address] [facility] THYROID [address] [place] [address] STIMULATI NG [facility]ORMONE TSH THER 83169 JESSIE ROMAN PROPH/DX [address] [facility] SUBQ/IM ECG 86573 JESSIE ROMAN ROUTINE [address] [facility] W/LEAST 12 LDS TRCG ONLY W/O I&R DEMO&/VINICIO 60705 JESSIE Velasco OF PT [address] [facility] AERSL GEN/NEB/I NHLR/[place] [address] JESSIE ROMAN WALL [address] [facility] [facility] [address] E LNG FUNCJ 1 DEMO&/VINICIO L O2 CONC 1 E1390 NAOMIE AKBAR [place] [address] HOME MED HOME MED 85%/>02 EQUIP. EQUIP. CONC AT [facility] FLW RATE ADMN SET A7005 YOUR YOUR W/SM VOL 8 PHARMACY PHARMACY [facility] NEBULIZR NON-DISPB L O2 CONC 1 E1390 NAOMIE AKBAR [place] [address] HOME MED HOME MED 85%/>02 EQUIP. EQUIP. CONC AT [facility] FLW RATE ADMN SET A7003 YOUR YOUR SM VOL 8 PHARMACY PHARMACY [facility] PNEUMAT NEBULIZR DISPBL O2 CONC 1 E1390 NAOMIE NAOMIE GORDON 8 HOME MED HOME MED 85%/>02 EQUIP. EQUIP. CONC AT [facility] FLW RATE Encounters Encounter Start End Date Code Location Performer Type Date HOSPITAL [facility] - 7 7 [facility] OUTPATIEN [facility] T OFFICE 38783 [facility] 7 7 PHYSICIAN T VISIT S GROUP 15 MINUTES [facility]ERGENCY 50303 [facility] 7 7 [facility] HIGH [facility]VERITY& THREAT [facility] 7 7 [facility] GOMEZ - 7 7 [facility] 7 7 [facility] [address] INPATIENT HOSPITAL [facility] 7 7 [facility] EMERGENCY 98507 [facility] [address] [facility] VISIT EMERGENCY HIGH PHYS SEVERITY& THREAT [facility] 7 7 [facility] [place] [address] 7 [facility] T OFFICE 87936 [facility] 7 7 PHYSICIAN T VISIT S GROUP 15 MINUTES [facility] GOMEZ - 7 7 [facility] OUTPATIEN [facility] T OFFICE 05573 [facility] 7 7 MEM [facility] T VISIT INC 10 MINUTES HOSPITAL [facility] - 7 7 [facility] T OFFICE 24409 [facility] [facility] 7 7 MD SUNNY, T VISIT PSC 15 MINUTES OFFICE 04015 [facility] 7 7 PHYSICIAN T VISIT S GROUP 15 MINUTES HOSPITAL [facility] - 7 7 [facility] OUTPATIEN [facility] [place] - 7 7 [facility] T EMERGENCY 14948 [place] 7 7 [facility] T VISIT HIGH/URGE NT SEVERITY EMERGENCY 26329 [place] 7 7 [facility] T VISIT HIGH/URGE NT SEVERITY HOSPITAL [place] - 7 7 [facility] T EMERGENCY 86092 [facility] 7 DESIRE VISIT EMERGENCY HIGH PHYS SEVERITY& THREAT [facility] GOMEZ - 7 7 [facility] OUTPATIEN INC T OFFICE 15218 [facility] [place] OUTPATIEN 7 7 PHYSICIAN T VISIT S GROUP 15 MINUTES HOSPITAL [facility] - 7 7 [facility] OUTPATIEN INC T OFFICE 50952 [facility] [place] OUTPATIEN 7 7 PHYSICIAN T VISIT S GROUP 25 MINUTES HOSPITAL [facility] - 7 7 [facility] OUTPATIEN INC T OFFICE 68084 [facility] 7 7 [facility] T VISIT INC 10 MINUTES [facility]OSPITAL [facility] - 7 7 [facility] OUTPATIEN INC T OFFICE 18385 [facility] OUTPATIEN 7 7 PHYSICIAN T VISIT S GROUP 25 MINUTES HOSPITAL [facility] - 7 7 [facility] OUTPATIEN INC T OFFICE 76289 [facility] 7 7 [facility] T VISIT INC 10 MINUTES OFFICE 29310 [facility] 7 7 MD SUNNY, T VISIT PSC 15 MINUTES [facility]OSPITAL [facility] - 7 7 [facility] OUTPATIEN INC T OFFICE 32517 [facility] OUTPATIEN 6 6 PHYSICIAN T VISIT S GROUP 15 MINUTES HOSPITAL [facility] - 6 6 [facility] OUTPATIEN INC T OFFICE 64970 [facility] OUTPATIEN 6 6 PHYSICIAN KAMILA T VISIT S GROUP 15 MINUTES HOSPITAL [facility] - 6 6 [facility] OFFICE 11641 [facility]ONDR[facility]RE[facility] AN OUTPATIEN 6 6 MD T VISIT 10 MINUTES HOSPITAL [facility] - 6 6 [facility] - 6 6 [facility] OFFICE 39274 [facility] OUTPATIEN 6 6 PHYSICIAN KAMILA T VISIT S GROUP 25 MINUTES OFFICE 53839 [facility] OUTPATIEN 6 6 PHYSICIAN [facility] T VISIT S GROUP 15 MINUTES [facility] 6 6 [facility] OFFICE [id number] [facility] 6 6 [facility] 10 INC [facility] [place] - 6 6 [facility] T OFFICE 94077 [facility] PHYSICIAN [facility] T VISIT S GROUP 15 MINUTES OFFICE 50508 [facility] 6 6 [facility]IN[facility] 15 MINUTES [facility] - 6 6 [facility] OUTPATIEN CRITICAL ACCESS HOSPITAL HOSPITAL CURRIE [facility] 6 6 [facility] EMERGENCY [id number] [facility] 6 6 [facility] HIGH SEVERITY& THREAT [facility] OFFICE 51325 [facility] OUTPATIEN 6 6 PHYSICIAN KAMILA T [facility]ISIT S GROUP 15 MINUTES [facility]OSP[facility] - 6 6 [facility] HOSPITAL CURRIE [facility] 6 6 [facility] UNIVERSIT - 6 6 Y [facility] T OFFICE 65110 [facility] 6 Y T [facility]ISIT 5 [facility] - 6 6 [facility] [place] - 6 6 [facility] 6 6 [facility] 6 6 [facility] T OFFICE 74131 [facility] 6 6 PHYSICIAN KAMILA T VISIT S GROUP 15 MINUTES HOME [place] [id number] [facility] OFFICE 08387 [facility] 6 6 PHYSICIAN KAMILA T VISIT S GROUP 15 MINUTES HOME [facility] [address] [facility] OFFICE 21682 [facility] 6 6 Y T VISIT 5 [facility] UNIVERSIT - 6 6 Y [facility] T [facility] 21227 [facility] T VIS[facility] 5 [facility] UNIVERSIT - 6 6 Y [facility] T OFFICE 37199 [facility] 6 6 PHYSICIAN KAMILA T VISIT S GROUP 15 MINUTES HOSPITAL VICTOR - 6 6 [facility] [place] [id number] [facility] EMERGENCY 65779 [facility] SN[facility] DEPT 6 6 PHYSICIAN KAMILA VISIT S, PLLC HIGH SEVERITY& THREAT FUN EMERGENCY 36891 [facility] DEPT 6 6 DESIRE NGOZI VISIT EMERGENCY HIGH PHYS SEVERITY& THREAT FUNCJ OFFICE 66441 [facility] OUTPATIEN 6 6 PHYSICIAN KAMILA T VISIT S GROUP 15 MINUTES [facility]OSP[facility] - 6 6 [facility] OUTPATIEN INC T EMERGENCY 53278 [facility] 6 6 DESIRE DEPARTMEN EMERGENCY T VISIT PHYS MODERATE SEVERITY OFFICE 06075 [facility] OUTPATI[facility] 6 6 PHYSICIAN KAMILA T VISIT S GROUP 15 MINUTES [facility] - 6 6 [facility]PATI[facility] INC [facility] - 6 6 [facility]PATIEN [facility] - 6 6 [facility] INC T OFFICE 87959 [facility] OUTPATI[facility] 6 6 PHYSICIAN KAMILA T VISIT S GROUP 15 MINUTES OFFICE 67183 [facility] OUTPATIEN 5 5 PHYSICIAN KAMILA T VISIT S GROUP 10 MINUTES OFFICE 50090 [facility] OUTPATIEN 5 5 Y MEDICAL MU T VISIT CLINIC 15 MINUTES OFFICE 37792 [facility] OUTPATIEN 5 5 CULAR MAT T VISIT CONSULTAN 25 TS O MINUTES [facility] - 5 5 [facility] OUTPATIEN INC T OFFICE 45359 [facility] OUTPATIEN 5 5 PHYSICIAN KAMILA T VISIT S GROUP 15 MINUTES OFFICE 67881 [facility] OUTPATIEN 5 5 [facility] T VISIT HOSPITAL 15 MINUTES HOSPITAL KUSH - 5 5 [facility] EMERGENCY 25364 [facility] 5 5 DESIRE MAR VISIT EMERGENCY HIGH PHYS SEVERITY& THREAT FUNCJ OFFICE 96350 [facility] FRANCISCO OUTPATIEN 5 5 PHYSICIAN KAMILA T VISIT S GROUP 10 MINUTES HOSPITAL GOMEZ - 5 5 [facility] OUTPATIEN INC T OFFICE 34725 CARDIOVAS BRITANY OUTPATIEN 5 5 CULAR MAT T VISIT CONSULTAN 25 TS O MINUTES HOSPITAL GOMEZ - 5 5 [facility] OUTPATIEN [facility] T OFFICE 39496 CARDIOVAS BRITANY OUTPATIEN 5 5 CULAR MAT T VISIT CONSULTAN 40 TS O MINUTES HOSPITAL GOMEZ - 5 5 [facility] OUTPATIEN [facility] T OFFICE 93261 [facility] FRANCISCO OUTPATIEN 5 5 PHYSICIAN KAMILA T VISIT S GROUP 15 MINUTES OFFICE 71313 CARDIOVAS BRITANY OUTPATIEN 5 5 CULAR MAT T VISIT CONSULTAN 25 TS O MINUTES [facility] GOMEZ - 5 5 [facility] OUTPATIEN [facility] GOMEZ [facility] 5 5 [facility] OUTPATIEN [facility] HOSPITAL GOMEZ - 5 5 [facility] OUTPATIEN [facility] T OFFICE 58702 [facility] FRANCISCO OUTPATIEN 5 5 PHYSICIAN KAMILA T VISIT S GROUP 10 MINUTES HOSPITAL GOMEZ - 5 5 [facility] OUTPATIEN [facility] T OFFICE 27443 CARDIOVAS BRITANY OUTPATIEN 5 5 CULAR MAT T VISIT CONSULTAN 40 TS O MINUTES OFFICE 84102 [facility] FRANCISCO OUTPATIEN 5 5 PHYSICIAN KAMILA T VISIT S GROUP 15 MINUTES OFFICE 12424 CARDIOVAS BRITANY OUTPATIEN 5 5 CULAR MAT T VISIT CONSULTAN 25 TS O MINUTES HOSPITAL GOMEZ - 5 5 [facility] OUTPATIEN [facility] T OFFICE 04032 [facility] FRANCISCO [facility]PATIEN 5 5 PHYSICIAN KAMILA T VISIT S GROUP 15 MINUTES HOSPITAL NIKITA - 5 5 [facility] T MEDICAL EMERGENCY 58092 MEADOWVIE DEPT 5 5 W VISIT REGIONAL HIGH MEDICAL SEVERITY& THREAT FUNCJ OFFICE 22003 [facility] FRANCISCO OUTPATIEN 5 5 PHYSICIAN KAMILA T VISIT S GROUP 15 MINUTES HOSPITAL [facility] - 5 5 HOSPITAL INPATIENT OFFICE 89169 MAHESH FERRER OUTPATIEN 5 5 [facility] HAM T NEW 45 MEDICAL MINUTES G OFFICE 08537 [facility] FR[facility] OUTPATIEN 5 5 PHYSICIAN KAMILA T VISIT S GROUP 15 MINUTES OFFICE 85692 CARDIOVAS BLACK JAZZMINE OUTPATIEN 5 5 CULAR T NEW 60 CONSULTAN MINUTES [facility] MEADOWVIE - 5 5 W OUTPATIEN REGIONAL T MEDICAL OFFICE 28283 [facility] FRANCISCO OUTPATIEN 5 5 PHYSICIAN KAMILA T VISIT S GROUP 15 MINUTES HOSPITAL CURRIE - OTHER 5 5 [facility] GOMEZ - 5 5 MEM H[facility] OUTPATIEN INC T OFFICE 96629 [facility] FRANCISCO OUTPATIEN 5 5 PHYSICIAN KAMILA T VISIT S GROUP 15 MINUTES OFFICE 57944 [facility] FRANCISCO OUTPATIEN 5 5 PHYSICIAN KAMILA T VISIT S GROUP 25 MINUTES EMERGENCY 81521 [facility] 5 5 [facility] EMERGENCY T VISIT PHYS HIGH/URGE NT SEVERITY EMERGENCY 78087 CURRIE 5 5 CO [facility] HOSPITAL T VISIT MODERATE SEVERITY HOSPITAL CURRIE - 5 5 [facility] T OFFICE 21202 [facility] FRANCISCO OUTPATIEN 5 5 PHYSICIAN KAMILA T NEW 20 S GROUP MINUTES OFFICE 83847 [facility] ESPOSITO OUTPATIEN 5 5 CLINIC HEN T VISIT 15 MINUTES [facility] UNIVERSIT - 5 5 Y [facility] T OFFICE 87693 [place] S[facility] OUTPATIEN 5 5 MEDICAL CECILIA T VISIT SERV 15 FOUNDATIO MINUTES N OFFICE 13941 UNIVERSIT OUTPATIEN 5 5 Y T VISIT HOSPITAL 10 MINUTES OFFICE 94011 [facility] VAIBHAV OUTPATIEN 4 4 CLINIC HEN T VISIT 15 MINUTES OFFICE 77183 [facility] VAIBHAV OUTPATIEN 4 4 CLINIC HEN T VISIT 15 MINUTES OFFICE 26454 [facility] SANTOSH OUTPATIEN 4 4 CECILIA CECILIA T VISIT 15 MINUTES OFFICE 40018 UNIVERSIT OUTPATIEN 4 4 Y T VISIT HOSPITAL 10 MINUTES HOSPITAL UNIVERSIT - 4 4 Y OUTPATIEN HOSPITAL T OFFICE 43805 [facility] DIEGOSON OUTPATIEN 4 4 CLINIC NHI T VISIT 25 MINUTES OFFICE 86628 [facility] VAIBHAV OUTPATIEN 4 4 CLINIC HEN T VISIT 15 MINUTES OFFICE 86083 [facility] OUTPATIEN 4 4 CLINIC T VISIT 25 MINUTES OFFICE 14172 [facility] HUTCHINS- OUTPATIEN 4 4 CLINIC SE YOSVANY T VISIT 25 MINUTES OFFICE 82192 [facility] SANTOSH OUTPATIEN 4 4 CECILIA CECILIA T VISIT 15 MINUTES HOSPITAL [facility], - 3 3 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 OUTPATIEN JESSIE T CO HOS OFFICE 77212 [facility] BONDENTINO OUTPATIEN 3 3 CECILIA CECILIA T VISIT 25 MINUTES OFFICE 87159 DEBORAHARETrever LEESN OUTPATIEN 3 3 Apr T VISIT 25 MINUTES OFFICE 81000 DEBORAHARETrever CABRERAAREN OUTPATIEN 3 3 Apr T VISIT 25 MINUTES OFFICE 32324 DBEORAHARETrever ARAGON OUTPATIEN 3 3 Apr T VISIT 25 MINUTES OFFICE 55160 UNIVERSIT OUTPATIEN 3 3 Y T VISIT HOSPITAL 25 MINUTES OFFICE 96403 [facility] BERNABEO OUTPATIEN 3 3 CECILIA CECILIA T VISIT 15 MINUTES HOSPITAL UNIVERSIT - 3 3 Y [facility] T OFFICE 49111 [facility] CABRERASTIVEN OUTPATIEN 2 2 Apr T VISIT 25 MINUTES OFFICE 42842 [facility] SANTOSH OUTPATIEN 2 2 CECILIA CECILIA T VISIT 15 MINUTES OFFICE 08545 [facility] CABRERASTIVEN OUTPATIEN 2 2 Apr T VISIT 25 MINUTES OFFICE 62002 [facility] CABRERASTIVEN OUTPATIEN 2 2 Apr T VISIT 15 MINUTES HOSPITAL [facility] INC, - 2 2 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 [facility] OFFICE 66816 NABEELTrever ARAGON OUTPATIEN 2 2 Apr T VISIT 25 MINUTES OFFICE 13528 NABEELTrever DEBORAHSTIVEN OUTPATIEN 2 2 Apr T VISIT 15 MINUTES HOSPITAL UNIVERSIT - 2 2 Y [facility] T OFFICE 18708 JHONATHAN SNYDER OUTPATIEN 2 2 T VISIT 15 MINUTES OFFICE 10809 [facility] Apr T VISIT 25 MINUTES HOSPITAL JESSIE - 2 2 [facility] OFF[facility] 55282 [facility] ARAGON OUTPATIEN 1 1 Apr T VISIT 25 MINUTES HOSPITAL UNIVERSIT - 1 1 Y [facility] T OFFICE 15398 [facility]OST [facility] 1 1 CECILIA CECILIA T VISIT 15 MINUTES OFFICE 33984 ROCCONICHOLE VALIENTE [facility] 1 1 [facility] 45 MINUTES [facility] JESSIE [facility] 1 1 [facility] T OFFICE 23217 [facility] LEESTrever [facility] 1 Apr T VISIT 15 MINUTES HOSPITAL JESSIE - 1 1 [facility] T OFFICE 59968 [facility] L[facility]STrever [facility] CLINIC APR T VISIT PSC 25 MINUTES OFFICE 34877 TIFFANIE [facility] 1 MEDICAL CECILIA T VISIT SERV 15 FOUNDATIO MINUTES [facility] UNIVERSIT - 1 1 [facility] T OFFICE 26881 ALLRAN JR ALLRAN JR CONSULTAT 1 1 CALEB CALEB ION NEW/ESTAB PATIENT 40 MIN OFFICE 41612 [facility] ARAGON OUTPATIEN 1 1 CLINIC APR T VISIT PSC 15 MINUTES OFFICE 50723 [facility] DEBORAHSTIVEN OUTPATIEN 1 1 CLINIC CECILIA T [facility]IT [facility] 25 [facility]ES HOSPITAL SERGIOWVIE - 1 1 [facility] T MEDICAL OFFICE 45377 ONCOLOGY JAJA CHR OUTPATIEN 1 1 HEMATOLOG T VISIT Y CARE IN 25 MINUTES OFFICE 73502 TIFFANIE COATESReji OCTAVIANO OUTPATIEN 1 1 MEDICAL T VISIT SERV 25 [facility] MEADOWVIE - 1 1 [facility] T MEDICAL OFFICE 04156 ONCOLOGY SIGMUND OUTPATIEN 1 1 HEMATOLOG ADOLFO T VISIT Y CARE IN 15 MINUTES OFFICE 13163 [facility] DEBORAHAREN OUTPATIEN 1 1 CLINIC CECILIA T VISIT PSC 15 MINUTES HOSPITAL JESSIE - 1 1 [facility] T OFFICE 57505 CHENCHODOTTIE LEESTrever OUTPATIEN 1 1 CLINIC CECILIA T VISIT PSC 25 MINUTES OFFICE 83110 [facility] NABEELTrever OUTPATIEN 1 1 CLINIC CECILIA T VISIT PSC 15 MINUTES OFFICE 25219 TIFFANIE BONDSANTOSH OUTPATIEN 1 1 MEDICAL CECILIA T VISIT SERV 15 [facility] UNIVERSIT - 1 1 Y [facility] T OFFICE 17525 ONCOLOGY JAJA CHR OUTPATIEN 1 1 HEMATOLOG T VISIT Y CARE IN 15 MINUTES HOSPITAL MEAWVIE - 1 1 [facility] CURRIE - 1 1 [facility] T OFFICE 47880 MARKUSALDINI MARKUSALDINI OUTPATIEN 1 1 ETHAN ETHAN T VISIT 15 MINUTES OFFICE 48858 TIFFANIE SANTOSH OUTPATIEN 1 1 MEDICAL CECILIA T VISIT SERV 15 [facility] CURRIE - 1 1 [facility] MEADOWVIE - 0 0 W [facility] T MEDICAL OFFICE 58475 RINALDINI RINALDINI OUTPATIEN 0 0 ETHAN ETHAN T VISIT 15 MINUTES HOSPITAL CURRIE - 0 0 CO [facility] T HOSPITAL CURRIE - 0 0 CO [facility] T [facility] MEADOWVIE - 0 0 W [facility] T MEDICAL OFFICE 73481 TIFFANIE INA [facility] 0 0 MEDICAL PRA T VISIT SERV 10 FOUNDATIO [place] CURRIE - 0 0 CO [facility] T OFFICE 51073 RINALDINI [facility]DINI [facility] 0 0 ETHAN ETHAN T VISIT 15 MINUTES HOSPITAL JESSIE - 0 0 CO [facility] T EMERGENCY 00982 JESSIE 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 MEADOWVIE - 0 0 [facility] T MEDICAL OFFICE 44916 MARKUSALDINI RINALDINI OUTPATIEN 0 0 ETHAN ETHAN T VISIT 25 MINUTES EMERGENCY 65021 JESSIE 0 0 CO [facility] HOSPITAL T VISIT LOW/MODER SEVERITY EMERGENCY 11348 RINALDINI RINALDINI 0 0 ETHAN ETHAN [facility] T VISIT MODERATE SEVERITY HOSPITAL JESSIE - [address] [facility] UNIVERSIT - 0 0 Y [facility] T [facility] UNIVERSIT - 0 0 Y [facility] T OFFICE 80303 [place] [facility] OUTPATIEN 0 0 MEDICAL CECILIA T VISIT SERV 15 FOUNDATIO [place] [facility], 0 0 HOME [facility] JESSIE [facility] 0 0 CO [facility] T OFFICE 09486 JESSIE OUTPATIEN 0 0 CO T VISIT 5 [facility] OFFICE 71972 JESSIE OUTPATIEN 0 0 CO T VISIT 5 [facility] JESSIE - 0 0 [facility] T [facility] JESSIE - 0 0 [facility] T OFFICE 60243 JESSIE OUTPATIEN 0 0 CO T VISIT 5 [facility] EMERGENCY 52999 JESSIE 0 0 [facility] T VISIT LIMITED/M INOR PROB EMERGENCY 70413 RINALDINI RINALDINI 0 0 , ETHAN GAXIOLA [facility] T VISIT HIGH/URGE NT SEVERITY [facility] JESSIE - 0 0 [facility] T OFFICE 05173 NATALIEINI MARKUSALDINI OUTPATIEN 0 0 , ETHAN GAXIOLA T VISIT 10 MINUTES [facility] MEADOWVIE - 0 0 [facility] 74922 ONCOLOGY JAJA, OUTPATIEN 0 0 HEMATOLOG BRITTANY M T VISIT Y CARE 15 INC MINUTES [facility]RIE [facility] 0 [facility] 0 0 HOME [facility] JESSIE - 0 0 CO INPATIENT HOSPITAL HOSPITAL JESSIE - 0 0 [facility] T EMERGENCY 83001 JESSIE 0 0 CO [facility] T VISIT LOW/MODER SEVERITY EMERGENCY 57399 JESSIE GR 0 0 CO , MINOR [facility] T VISIT LIMITED/M INOR [facility] JESSIE - [address] [facility] MEADOWVIE - 0 0 W [facility] OFFICE 60509 ONCOLOGY JAJA, [facility] 0 0 HEMATOLOG BRITTANY Virgen T VISIT Y CARE 25 INC MINUTES [facility], 0 0 HOME [facility] T OFFICE 47807 RINCESARINI RINALDINI OUTPATIEN 0 0 , MINOR , MINOR T VISIT 25 MINUTES OFFICE 75091 RINALDINI RINALDINI OUTPATIEN 0 0 , MINOR , MINOR T VISIT 15 MINUTES OFFICE 33656 [place] [facility] OUTPATIEN 0 0 MEDICAL , HANNAH T VISIT SERV 15 FOUNDATIO MINUTES OFFICE 85848 RINALDINI RINALDINI OUTPATIEN 0 0 , MINOR , MINOR T VISIT 15 MINUTES [facility] MEADOWVIE - 0 0 W [facility] OFFICE 39326 [place] INA CONSULTAT 0 0 MEDICAL PRA ION SERV NEW/ESTAB FOUNDATIO PATIENT 30 MIN HOSPITAL UNIVERSIT - 0 0 Y [facility] T OFFICE 89421 [place] [facility] OUTPATIEN 0 0 MEDICAL CECILIA T VISIT SERV 25 FOUNDATIO MINUTES OFFICE 05630 [place] [facility] CONSULTAT 0 0 MEDICAL CECILIA ION SERV NEW/ESTAB FOUNDATIO PATIENT 80 MIN [facility] UNIVERSIT - [address] [facility] JESSIE - 8 8 CO [facility] T OFFICE 71543 [facility] 8 8 CO T VISIT 5 HOSPITAL MINUT[facility] OFFICE 20210 [facility] 8 8 CO T VISIT 5 [facility] JESSIE - 8 8 CO [facility] OFFICE 06802 [facility] 8 8 CO T VISIT 5 [facility] JESSIE - 8 8 CO [facility] T HOSPITAL JESSIE [facility] 8 8 CO [facility] T EMERGENCY 18839 [facility] 8 8 CO [facility] T VISIT LIMITED/M INOR PROB OFFICE 31355 [facility] ARAGON [facility] 8 8 CLINIC [facility] JESSIE - 8 8 CO [facility] T OFFICE 58221 MAILE ESTRADAINI [facility] 8 8 , ETHAN GAXIOLA M T VISIT 5 MINUTES OFFICE 92247 NATALIEINI NATALIEINI [facility] 8 8 , ETHAN GAXIOLA M T VISIT 5 MINUTES HOSPITAL JESSIE - 8 8 [facility] T OFFICE 00076 NATALIEINI NATALIEINI OUTPATIEN 8 8 , MINOR ETHAN M T VISIT 5 MINUTES OFFICE 73722 NATALIEINI [facility]DINI [facility] , ETHAN GAXIOLA M T VISIT 5 MINUTES
--- OUTSIDE RECORDS SUMMARY | 2017-02-06 01:19 | External Medical Summary Rpt | CCD ---
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 20 11 [address] JAMIL DE UG T 10 [...] LE N RA 20 11 11 JA NC 5 NE DE UG T 10 CO [...] BR 90 10 10 FA ET 5 NC T LY T DR UG PI 00 08 11 5 90 30 SO 34 CO Ac LO 11 -0 -2 .0 PE 89 ME ti CA 55 6- 4- 00 RS 36 R ve RP 92 20 20 BR IN 20 10 10 FA ET E 1 NC T HC LY T L 5 DR MG UG TA BL ET NE 00 09 10 1 30 30 SO 35 No Ac XI 18 -2 -3 .0 PE 32 t ti UM 65 9- 0- 00 RS 71 Av ve [address] 03 10 10 FA la 1 NC bl [address] UG CA PS UL E CE 68 10 10 0 28 7 SO 35 No Ac PH 18 -2 -2 .0 PE 52 t ti AL 00 1 RS 38 Av ve EX 12 20 20 ai IN 20 10 10 FA la 2 NC bl 50 LY e [address] UG CA PS UL E 00 08 10 5 12 30 SO 34 CO Ac 59 -0 -1 0. PE 89 ME ti 12 6- 4- 00 RS 35 R ve 22 20 20 0 BR 90 10 10 FA ET 5 NC T LY T DR UG PI 00 08 10 5 90 30 SO 34 CO Ac LO 11 -0 -1 .0 PE 89 ME ti CA 55 6- 4- 00 RS 36 R ve RP 92 20 20 BR IN 20 10 10 FA ET E 1 NC T HC LY T L 5 DR MG UG TA BL ET [place] 00 09 09 0 24 5 SO [address] 60 -2 -2 0. PE 32 t ti AT 31 RS 70 Av ve IN 48 20 20 0 ai 15 10 10 FA la 10 8 NC bl 0, LY e [address] UN UG IT /M L GARCIA SP NE 00 09 09 1 30 30 SO 35 No Ac XI 18 -2 -2 .0 PE 32 t ti UM 65 RS 71 Av ve [address] 03 10 10 FA la 1 NC bl [address] UG CA PS UL E 00 09 09 0 23 26 SO 35 No Ac 12 -2 -2 65 PE 25 t ti 10 1- 1- .0 RS 91 Av ve 65 20 20 00 ai 51 10 10 FA la 6 NC bl LY e DR UG GARCIA 00 09 09 0 30 15 SO 35 No Ac LF 60 -2 -2 .0 PE 25 t ti AM 35 RS 92 Av ve ET 78 20 20 ai HO 12 10 10 FA la XA 8 NC bl ZO LY e LE -T DR MP UG DS TA BL ET LI 50 09 09 0 10 5 SO 35 No Ac DO 38 -2 -2 0. PE 25 t ti CA 30 1 RS 93 Av ve IN 77 20 20 0 ai E 50 10 10 FA la 2% 4 NC bl LY e SC DR OU UG S SO LN 00 08 09 5 12 30 SO 34 CO Ac 59 -0 -1 0. PE 89 ME ti 12 6 3 00 RS 35 R ve 22 20 20 0 BR 90 10 10 FA ET 5 NC T LY T DR UG PI 00 08 09 5 90 30 SO 34 CO Ac LO 11 -0 -1 .0 PE 89 ME ti CA 55 6- 3- 00 RS 36 R ve RP 92 20 20 BR IN 20 10 10 FA ET E 1 NC T HC LY T L 5 DR MG UG TA BL ET 00 08 08 0 30 3 SO 34 No Ac 12 -1 -1 0. PE 96 t ti 10 7- 7- 00 RS 80 Av ve 65 20 20 0 ai 51 10 10 FA la 6 NC bl LY e DR UG 00 08 08 5 12 30 SO 34 CO Ac 59 -0 -0 0. PE 89 ME ti 12 6- 6- 00 RS 35 R ve 22 20 20 0 BR 90 10 10 FA ET 5 NC T LY T DR UG PI 00 08 08 5 90 30 SO 34 CO Ac LO 11 -0 -0 .0 PE 89 ME ti CA 55 6- 6- 00 RS 36 R ve RP 92 20 20 BR IN 20 10 10 FA ET E 1 NC T HC LY T L 5 DR MG UG TA BL ET PE 00 07 08 1 59 1 SO 34 No Ac RM 47 -1 -0 .0 PE 73 t ti ET 25 9- 5- 00 RS 87 Av ve HR 24 20 20 ai IN 26 10 10 FA la 7 NC bl 1% LY e LO DR TI UG ON FL 00 08 08 0 5. 5 SO 34 No Ac UC 17 -0 -0 00 PE 87 t ti ON 25 5- 5- 0 RS 61 Av ve AZ 41 20 20 ai OL 21 10 10 FA la E 1 NC bl 15 LY e [address] UG TA BL ET ID 60 07 08 5 50 16 WA 74 ID Ac OM 43 -2 -0 0. L- 79 AB ti ET 20 7- 2- 00 MA 88 HU ve VEGA 60 20 20 0 RT 5 ZI 81 10 10 ID NE 6 PH AM AR OD 6. MA V 25 CY # MG /5 10 15 ML 69 SY RP AM 00 07 07 0 28 9 SO 34 No Ac OX 78 -2 -2 .0 PE 81 t ti -C 11 8- 8- 00 RS 22 Av ve LA 83 20 20 ai V 12 10 10 FA la 50 0 NC bl 0- LY e [address] MG UG TA BL ET ID 00 07 07 1 12 30 WA [...] IN 26 10 10 FA la 7 NC bl 1% LY e LO DR TI [...] 0 14 7 WA 74 SA Ac ID 37 -0 -0 .0 L- 77 PP [...] MA M CY # 10 15 69 ID 00 04 06 5 30 5 WA 74 SA Ac OC 78 -3 -2 .0 L- 66 PP ti HL 15 0- 5- 00 MA 40 ve OR 02 20 20 RT 8 CH PE 10 10 10 RI RA [address] ZI AR Y NE MA M CY 10 # MG 10 15 TA 69 B ID 00 06 06 1 30 30 WA [...] 06 06 3 14 14 WA 74 ID Ac UC 09 -1 -1 0. L- 73 AB ti ON 35 4- 4- 00 MA 39 HU ve AZ 41 20 20 0 RT 8 OL 49 10 10 ID E 5 PH AM 10 AR OD MA V MG CY /M # L GARCIA 10 SP 15 69 00 06 06 5 24 12 WA 74 ID Ac 09 -0 -0 0. L- 72 AB ti 39 7- 7- 00 MA 24 HU ve 63 20 20 0 RT 1 48 10 10 ID 7 PH AM AR OD MA V CY # 10 15 69 ID 00 04 06 5 30 5 WA [...] 06 06 5 40 30 WA 74 ID Ac LV 59 -0 -0 0. L- 71 AB ti ER 10 1- 2- 00 MA 39 HU ve 81 20 20 0 RT 7 GARCIA 04 10 10 ID LF 6 PH AM AD AR OD IA MA V ZI CY NE # 1% 10 15 CR 69 EA M GARCIA 00 08 08 00 20 10 SO 29 No Ac LF 60 -1 -2 .0 PE 05 t ti AM 35 2- 8- 00 RS 67 Av ve ET 78 20 20 ai HO 12 08 08 FA la XA 8 NC bl ZO LY e LE -T MP UG DS TA BL ET LI 00 10 08 01 30 30 SO 26 No Ac PI 07 -2 -2 .0 PE 59 t ti TO 10 9- 8- 00 RS 29 Av ve R 15 20 20 ai 40 72 07 08 FA la 3 NC bl MG LY e TA DR BL UG ET ID 37 07 08 01 56 28 SO 28 No Ac IL 00 -0 -2 .0 PE 78 t ti OS 00 7- 8- 00 RS 89 Av ve EC 45 20 20 ai 50 08 08 FA la OT 4 NC bl C LY e [address] MERYL MG TA BL ET 15 08 08 00 20 10 SO 29 No Ac 68 -2 -2 .0 PE 14 t ti 60 2- 8- 00 RS 39 Av ve 10 20 20 ai 20 08 08 FA la 5 NC bl LY e DR SHETH FL 60 08 08 00 16 7 SO 29 No Ac UT 50 -1 -2 .0 PE 08 t ti IC 50 4- 8- 00 RS 07 Av ve 82 20 20 ai ON 90 08 08 FA la E 1 NC bl ID LY e OP 50 UG MC G [...] ai 83 08 08 FA la 2 NC bl LY e UG 00 08 08 00 20 4 SO 29 No Ac 59 -1 -2 .0 PE 06 t ti 10 3- 8- 00 RS 85 Av ve 34 20 20 ai 90 08 08 FA la 5 NC bl LY e UG 00 08 08 00 80 10 SO 29 No Ac 78 -1 -2 .0 PE 06 t ti 12 3- 8- 00 RS 84 Av ve 11 20 20 ai 20 08 08 FA la 1 NC bl LY e UG 00 08 08 00 21 6 SO 29 No Ac 55 -1 -2 .0 PE 08 t ti 50 4- 8- 00 RS 08 Av ve 30 20 20 ai 13 08 08 FA la 8 NC bl LY e DR UG PE 45 07 08 00 60 1 SO 28 No Ac RM 80 -1 -0 .0 PE 86 t ti ET 20 6- 1- 00 RS 97 Av ve HR 26 20 20 ai IN 93 08 08 FA la 7 NC bl 5% LY e CR DR EA [...] 40 72 07 08 FA la 3 NC bl MG LY e TA DR BL UG ET ID 37 07 07 00 56 28 SO 28 No Ac IL 00 -0 -1 .0 PE 78 t ti OS 00 7- 7- 00 RS 89 Av ve EC 45 20 20 ai 50 08 08 FA la OT 4 NC bl C LY e [address] UG MG TA BL ET TH 50 04 07 03 60 30 SO 28 No Ac EO 11 -0 -1 .0 PE 10 t ti PH 10 8- 7- 00 RS 88 Av ve YL 48 20 20 ai LI 20 08 08 FA la NE 2 NC bl LY e ER DR 20 UG 0 MG TA BL ET AM 00 06 07 00 30 30 SO 28 No Ac IT 78 -2 -0 .0 PE 69 t ti RI 11 3- 3- 00 RS 84 Av ve PT 48 20 20 ai YL 71 08 08 FA la IN 0 NC bl E LY e HC L DR 25 UG MG TA B TR 65 06 07 00 90 30 SO 28 No Ac AM 16 -2 -0 .0 PE 69 t ti AD 20 3- 3- 00 RS 86 Av ve OL 62 20 20 ai 75 08 08 FA la HC 0 NC bl L LY e 50 DR MG [...] 40 72 08 08 FA la 3 NC bl MG LY e TA DR BL UG ET ID 37 03 06 02 56 28 SO 28 No Ac IL 00 -2 -1 .0 PE 02 t ti OS 00 7- 2- 00 RS 17 Av ve EC 35 20 20 ai 90 08 08 FA la OT 7 NC bl C LY e [address] UG MG TA BL ET TH 50 04 06 02 60 30 SO 28 No Ac EO 11 -0 -1 .0 PE 10 t ti PH 10 8- 2- 00 RS 88 Av ve YL 48 20 20 ai LI 20 08 08 FA la NE 2 NC bl LY e ER DR 20 UG 0 MG TA BL ET 66 01 06 02 30 30 YO 15 No Ac 79 -2 -0 0. UR 36 t ti 40 8- 5- 00 1 Av ve 00 20 20 0 PH ai 26 08 08 AR la 0 MA bl CY e ID 37 03 05 01 56 28 SO 28 No Ac IL 00 -2 -2 .0 PE 02 t ti OS 00 7- 2- 00 RS 17 Av ve EC 45 20 20 ai 50 08 08 FA la OT 3 NC bl C LY e [address] UG MG TA BL ET LI 00 02 05 02 30 30 SO 27 No Ac PI 07 -2 -2 .0 PE 67 t ti TO 10 1- 2- 00 RS 83 Av ve R 15 20 20 ai 40 72 08 08 FA la 3 NC bl MG LY e TA DR BL UG ET TH 50 04 05 01 60 30 SO 28 No Ac EO 11 -0 -2 .0 PE 10 t ti PH 10 8- 2- 00 RS 88 Av ve YL 48 20 20 ai LI 20 08 08 FA la NE 2 NC bl LY e ER DR 20 UG 0 MG TA BL ET BE 68 04 04 00 20 20 SO 28 No Ac NZ 38 -0 -2 .0 PE 10 t ti ON 20 8- 4- 00 RS 89 Av ve AT 24 20 20 ai AT 80 08 08 FA la E 1 NC bl 20 LY e [address] UG CA PS UL E 63 04 04 00 12 30 SO 28 No Ac 82 -0 -2 0. PE 10 t ti 40 8- 4- 00 RS 87 Av ve 00 20 20 0 ai 81 08 08 FA la 0 NC bl LY e DR UG AZ 00 04 04 00 6. 5 SO 28 No Ac IT 78 -0 -2 00 PE 10 t ti HR 11 8- 4- 0 RS 86 Av ve OM 49 20 20 ai YC 66 08 08 FA la IN 8 NC bl LY e [address] MG UG TA BL ET 00 04 04 00 21 6 SO 28 No Ac 55 -0 -2 .0 PE 10 t ti 50 8- 4- 00 RS 85 Av ve 30 20 20 ai 13 08 08 FA la 8 NC bl LY e DR UG TH 50 04 04 00 60 30 SO 28 No Ac EO 11 -0 -2 .0 PE 10 t ti PH 10 8- 4- 00 RS 88 Av ve YL 48 20 20 ai LI 20 08 08 FA la NE 2 NC bl LY e ER DR 20 UG 0 MG TA BL ET ID 37 03 04 00 56 28 SO 28 No Ac IL 00 -2 -1 .0 PE 02 t ti OS 00 7- 0- 00 RS 17 Av ve EC 45 20 20 ai 50 08 08 FA la OT 3 NC bl C LY e [address] UG MG TA BL ET LI 00 02 04 01 30 30 SO 27 No Ac PI 07 -2 -1 .0 PE 67 t ti TO 10 1- 0- 00 RS 83 Av ve R 15 20 20 ai 40 72 08 08 FA la 3 NC bl MG LY e TA DR BL [...] 40 72 08 08 FA la 3 NC bl MG LY e TA DR BL UG ET 66 01 03 00 30 30 YO 15 No Ac 79 -2 -2 0. UR 36 t ti 40 8- 6- 00 1 Av ve 00 20 20 0 PH ai 26 08 08 AR la 0 MA bl CY e ID 37 01 03 01 56 28 SO 27 No Ac IL 00 -1 -2 .0 PE 26 t ti OS 00 4- 6- 00 RS 51 Av ve EC 45 20 20 ai 50 08 08 FA la OT 3 NC bl C LY e [address] UG MG TA BL ET LI 00 10 03 02 30 30 SO 26 No Ac PI 07 -2 -2 .0 PE 59 t ti TO 10 9- 5- 00 RS 30 Av ve R 15 20 20 ai 40 72 07 08 FA la 3 NC bl MG LY e TA DR BL UG ET ID 37 01 03 00 56 28 SO 27 No Ac IL 00 -1 -2 .0 PE 26 t ti OS 00 4- 5- 00 RS 51 Av ve EC 45 20 20 ai 50 08 08 FA la OT 3 NC bl C LY e [address] [...] Comment O2 CONC 1 [id number] [facility] 7 HOME HOME 85%/>02 MEDICAL MEDICAL CONC AT EQUIPME [facility] FLW RATE DRUG TEST G0481 [facility] DEFINITV [address] ID INC INC METH P DAY 8-14 DRUG CL DRUG TEST 51245 [facility] D[facility] PRSMV 7 MEM H[facility] MEM HOSP QUAL DIR INC INC OPTICAL OBS PER DAY O2 CONC 1 E1390 [facility] 7 HOME HOME 85%/>02 [facility] FL[facility] RATE THER 33480 [facility] PROPH/DX [address] [place] [address] SEQL IV PUSH SBST/DRUG FAC OBSERVATI 62514 [facility]IKITA TOBIN ON CARE [address] [facility] G0378 [facility] OBSERVATI [address] [place] [address] HOSPITAL SERVICE PER HOUR INJECTION J0692 [facility] CEFEPIME [address] [place] [address] HYDROCHLO RIDE 500 MG INJECTION J1644 [facility] HEPARIN [address] [place] [address] PER 1000 UNITS INJ J2930 [facility] METHYLPRD [address] [place] [address] SODIUM SUCCNAT TO 125 MG INFUSION J7030 [facility] NORMAL [address] [place] [address] SALINE [facility] SOLUTION 1000 CC BASIC 31375 [facility] METABOLIC [address] [place] [address] CALCIUM TOTAL COLLECTIO 09484 [facility] N VENOUS [address] [place] [address] VENIPUNCT URE BLOOD [address] AUTO&AUTO DIFRNTL WBC THERAPEUT 16877 [facility] IC [address] [place] [address] TIC/DX INJECTION SUBQ/IM THERAPEUT [address] IV PUSH EACH NEW DRUG THER 90746 [facility] PROPH/DX [address] [place] [address] NJX [facility] SEQL IV PUSH SBST/DRUG FAC THERAPEUT [address] TIC/DX INJECTION SUBQ/[place] [address] [facility] INFUSION [address] [place] [address] PROPHYLAX IS/[place] [address] [facility] INFUSION [address] [place] [address] THERAPY/P [facility] ROPHYLAXI S /DX 1ST TO 1 HR ECG 18588 [facility] ROUTINE [address] [place] [address] ECG [facility] W/LEAST 12 LDS TRCG ONLY W/O I&[place] [address] [facility] TROPONIN [address] [place] [address] [place] [address] [facility] MAGNESIUM [address] [place] [address] BLOOD 26441 [facility] COUNT [address] [place] [address] AUTO&AUTO DIFRNTL WBC CUL BACT 29919 [facility] XCPT [address] [place] [address] URINE [facility] BLOOD/STO OL AEROBIC ISOL SMR PRIM 24987 [facility] SRC [address] [place] [address] GRAM/GIEM [facility] SA STAIN BCT FUNGI/ROZINA L COLLECTIO 08824 [facility] N VENOUS [address] [place] [address] VENIPUNCT URE BASIC 36027 [facility] METABOLIC [address] [place] [address] CALCIUM TOTAL INJ J2930 [facility] METHYLPRD [address] [place] [address] SODIUM SUCCNAT TO 125 MG INJECTION J1644 [facility] HEPARIN [address] [place] [address] HOSPITAL PER 1000 UNITS INJECTION J0692 [facility] CEFEPIME [address] [place] [address] HYDROCHLO RIDE 500 MG INFUSION J7030 [facility] NORMAL [address] [place] [address] SOLUTION 1000 CC INITIAL 43220 [facility] OBSERVATI 7 W N ON HOSPITALI CARE/DAY ST 50 MINUTES TOBACCO 45900 [facility] USE [address] [place] [address] INTENSIVE >10 MINUTES INJECTION J0692 [facility] CEFEPIME [address] [place] [address] HYDROCHLO RIDE 500 MG INJECTION J1956 [address] [place] 250 MG INJECTION J1644 [facility] HEPARIN [address] [place] [address] HOSPITAL PER 1000 UNITS INJ J2930 [facility] METHYLPRD [address] [place] [address] SODIUM SUCCNAT TO 125 MG INFUSION J7030 [facility] NORMAL [address] [place] [address] SOLUTION 1000 CC COMPREHEN 14431 [facility] SIVE [address] [place] [address] PANEL URNLS DIP [address] STICK/TAB [facility] LET REAGENT AUTO MICROSCOP Y CORTISOL 81718 [facility] TOTAL [address] [place] [address] COLLECTIO 89001 [facility] N VENOUS [address] [place] [address] VENIPUNCT URE RADIOLOGI 41485 [facility] C EXAM [address] [place] [address] VIEWS FRONTAL&L ATERAL CULTURE 45968 [facility] BACTERIAL [address] [place] [address] QUANTTATI VE COLONY COUNT URINE CULTURE 69282 [facility] BACTERIAL [address] [place] [address] BLOOD [facility] AEROBIC W/ID ISOLATES BLOOD 53224 [facility] COUNT [address] [place] [address] COMPLETE [facility] AUTO&[place] [address] [facility] OSMOLALIT [address] [place] [address] Y URINE [facility] BLOOD 18291 [facility] GASES ANY [address] [place] [address] COMBINATI ON PH PCO2 PO2 [place] [address] [facility] LACTATE [address] [place] [address] [place] [address] [facility] URINE [address] [place] [address] [place] [address] [facility] TROPONIN [address] [place] [address] [place] ECG [address] [facility] ROUTINE [address] [place] [address] W/LEAST 12 LDS TRCG ONLY W/O I&R THERAPEUT 68148 [facility] IC [address] [place] [address] [facility] TIC/DX INJECTION SUBQ/IM ECG 86546 [facility] ROUTINE 7 DESIRE ECG EMERGENCY W/LEAST PHYS 12 LDS I&R ONLY PRESSURIZ 34169 [facility] ED/NONPRE [address] [place] [address] INHALATIO N TREATMENT DRUG TEST 42010 [facility] D[facility]ER PRSMV 7 [facility] MEM HOSP QUAL DIR INC INC OPTICAL OBS PER DAY O2 CONC 1 E1390 [facility] 7 HOME HOME 85%/>02 MEDICAL MEDICAL CONC AT EQUIPME EQUIPME PRS FLW RATE DRUG TEST 36660 [facility] DYER PRSMV 7 [facility] HOSP QUAL DIR INC [place] [address] [facility] [address] CLINIC ATTENUATI ON WHOLE BODY FLUORODEO A9552 [facility] XYGLUCOSE 7 Y MEDICAL F-18 FDG CLINIC DX UP TO 45 MCI SBSQ 61100 [facility] 7 NE HEALTH CARE/DAY MEDICAL 35 G MINUTES INITIAL 94901 [facility] 7 NE HEALTH CONSULT MEDICAL NEW/ESTAB G PT 80 MIN RADIOLOGI 89280 [facility] RADIOLOGY LD IV CHEST 2 VIEWS FRONTAL&[place] [address] [facility] CRV 7 NE HEALTH CRTD ART MEDICAL EMBOLIC G PROTECJ ECG 25857 [facility] ROUT[facility] 7 NE HEALTH ECG MEDICAL W/LEAST G 12 LDS I&R ONLY DUPLEX 68403 [facility] SCAN 7 EIDER EXTRACRAN RADIOLOGY IAL ART ASSOCIAT COMPL BI STUDY INITIAL 84576 [facility] YUE INPATIENT 7 NE HEALTH CONSULT MEDICAL NEW/ESTAB G PT 80 MIN GROUND A0425 [facility] [address] PER AMBULANCE AMBULANCE STATUTE MILE AMB A0427 [facility] SERVICE [address] [place] [address] ALS AMBULANCE AMBULANCE EMERGENCY TRANSPORT LEVEL 1 ECG 75355 [facility] ROUTINE 7 DESIRE ECG EMERGENCY W/LEAST PHYS 12 LDS I&[place] [address] [facility] HEAD/BRAI 7 EIDER N W/O RADIOLOGY CONTRAST ASSOCIAT MATERIAL RADIOLOGI 38221 [facility] C EXAM 7 EIDER CHEST 2 RADIOLOGY VIEWS ASSOCIAT FRONTAL&[place] [address] [facility] ABDOMEN & 7 EIDER PELVIS RADIOLOGY W/O ASSOCIAT CONTRAST MATERIAL O2 CONC 1 E1390 NAOMIE [facility]ION [place] 7 HOME HOME 85%/>02 MEDICAL MEDICAL CONC AT EQUIPME EQUIPME [facility] FLW RATE LOCM Q9967 [facility] [phone] [place] [address] MG/ HOSPITAL HOSPITAL IODINE CONCENTRA TION PER ML CT SOFT 12457 [facility] TISSUE [address] [place] [address] NECK [facility] W/[place] [address] [facility] ABDOMEN & [address] [place] [address] PELVIS [facility] W/CONTRAS T MATERIAL [place] THORAX [address] W/[facility] HOSPITAL T MATERIAL LOCM Q9967 [facility] [phone] [place] [address] MG/[facility] HOSPITAL IODINE CONCENTRA TION PER ML ADMN SET A7005 NAOMIE AKBAR W/SM VOL 7 HOME HOME NONFILTR MEDICAL MEDICAL NEBULIZR EQUIPME EQUIPME NON-DISPB L DRUG TEST G0481 GOMEZ DYER DEFINITV [address] ID INC INC METH P DAY 8-14 DRUG CL DRUG TEST 83296 GOMEZ DYER PRSMV 7 [facility] QUAL DIR INC INC OPTICAL OBS PER DAY COMPREHEN 42470 [facility] SIVE 7 DARRYL DARRYL METABOLIC [place] PANEL LACTATE 05755 [facility] DEHYDROGE 7 DARRYL DARRYL NASE [facility] [place] BLOOD 21866 [facility] COUNT 7 DARRYL DARRYL COMPLETE [place] AUTO&AUTO DIFRNTL WBC O2 CONC 1 E1390 NAOMIE NAOMIE [facility] 7 HOME HOME 85%/>02 MEDICAL MEDICAL CONC AT EQUIPME EQUIPME PRSC FLW RATE DRUG TEST G0480 GOMEZ DYER DEFINITV [address] ID INC INC METH P DAY 1-7 DRUG CL DRUG TEST G0481 GOMEZ DYER DEFINITV [address] ID INC INC METH P DAY 8-14 DRUG CL DRUG TEST 05333 GOMEZ DYER PRSMV 7 [facility] QUAL DIR INC INC OPTICAL OBS PER DAY RADEX 52757 [facility] HAND [address] [place] [address] HOSPITAL VIEWS REPAIR 55670 [facility] INTERMEDI [address] [place] [address] N/H/F/XTR NL GENT 2.6-7.5 CM TDAP 78702 [facility] VACCINE [address] [place] [address] YRS/> [facility]OSPITAL DEBRIDEME [address] [facility] NT OPEN 7 DESIRE WOUND 20 EMERGENCY SQ CM/< PHYS O2 CONC 1 E1390 NAOMIE CARRION [facility] HOME HOME 85%/>02 MEDICAL MEDICAL CONC AT EQUIPME EQUIPME PRS FLW RATE INFUSION J7030 [address] SOLUTION 1000 CC INJECTION J2405 [address] ON HCL PER 1 MG DRUG TEST G0480 [facility] DEFINITV [address] [place] [address] DR ID [facility] HOSPITAL METH P DAY 1-7 DRUG CL IAADIADOO [address] [facility] CULTURE [address]779 [facility] BACTERIAL [address] [place] [address] BLOOD [facility] AEROBIC W/[place] [address] [facility] LIPASE [address] [place] [address] [place] [address] [facility] LACTATE [address] [place] [address] [place] [address] [facility] MAGNESIUM [address] [place] [address] [place] [address] [facility] FREE [address] [place] [address] [place] [address] [facility] TROPONIN [address] [place] [address] [place] ECG [address] [facility] ROUTINE DESIRE ECG EMERGENCY W/LEAST PHYS 12 LDS I&R ONLY THER [id number] [facility] PROPH/DX [address] [place] [address] NJX [facility] PUSH SINGLE/1S T SBST/[place] [address] [facility] INFUSION [address] [place] [address] HYDRATION [facility] EACH ADDITIONA L HOUR ECG 25529 [facility] ROUTINE [address] [place] [address] W/LEAST 12 LDS TRCG ONLY W/O I&R COLLECTIO 35568 [facility] N VENOUS [address] [place] [address] [place] [address] [facility] HEAD/BRAI [address] [place] [address] W/O [facility] HOSPITAL CONTRAST MATERIAL RADIOLOGI 95497 [facility] C EXAM [address] [place] [address] CHEST 2 [facility]PITAL VIEWS FRONTAL&L ATERAL DRUG TEST 57343 [facility] PRSMV [address] [place] [address] [facility] CHEMISTRY ANALYZERS URNLS DIP [address] STICK/TAB [facility] HOSPITAL LET REAGENT AUTO MICROSCOP Y GENERAL 21923 [facility] HEALTH [address] [place] [address] DRUG 01945 GOMEZ DYER SCREENING 7 [facility] OPIOIDS INC INC & OPIATE ANALOGS 5/MORE DRUG TEST 87256 GOMEZ DYER PRSMV 7 [facility] QUAL DIR INC INC OPTICAL OBS PER DAY NJX 70268 NEIDA ADRIANFF DX/THER 7 MD SUNNY, AGT PVRT PSC FACET JT LMBR/SAC 1 LEVEL NJX 73024 NEIDA ADRIANFF DX/THER 7 MD SUNNY, AGT PVRT PSC FACET JT LMBR/SAC 2ND LEVEL O2 CONC 1 E1390 NAOMIE AKBAR DEL PORT 7 HOME HOME 85%/>02 MEDICAL MEDICAL CONC AT EQUIPSD EQUIPSD PRSC FLW RATE DRUG TEST 85947 GOMEZ DYER PRSMV 7 [facility] QUAL DIR INC INC OPTICAL OBS PER DAY CYANOCOBA 65176 GOMEZ DYER JENNY 7 [facility]OS[facility] VITAMIN INC INC B-12 PPSV23 44720 [facility] FRANCISCO VACCINE 2 7 PHYSICIAN YRS OR S GROUP OLDER FOR SUBQ/IM USE DRUG TEST 93719 GOMEZ DYER PRSMV 7 [facility] QUAL DIR INC INC OPTICAL OBS PER DAY DRUG TEST G0480 GOMEZ DYER DEFINITV [address] [address] ID INC INC METH P DAY 1-7 DRUG CL DRUG TEST G0481 GOMEZ DYER DEFINITV [address] ID INC INC METH P DAY 8-14 DRUG CL COMPREHEN 85849 [facility] SIVE 7 DARRYL DARRYL METABOLIC [employer] PANEL BLOOD 74086 [facility] COUNT 7 DARRYL DARRYL COMPLETE [employer] HOLDINGS AUTO&[place] [address] LAB [facility] BLOOD/URI 7 DARRYL DARRYL C ACID HOLDINGS HOLDINGS LACTATE 86925 [facility] DEHYDROGE 7 DARRYL DARRYL [place] [address] LAB [facility] DIE[facility] MAGNESIUM 7 DARRYL [...] 85%/>02 MEDICAL MEDICAL CONC AT EQUIPME EQUIPME [facility] FLW RATE MOTION 82521 KUSH PEREZ [address] [place] [address] FUN C/V REC SWALLOWIN [address] KUSH Benson [address] W/RUST IOGRAPY/V IDRADIOG ADMN SET A7005 NAOMIE AKBAR W/SM VOL 6 HOME HOME NONFILTR MEDICAL MEDICAL NEBULIZR EQUIPME EQUIPME NON-DISPB L COLLECTIO 24276 SHERMAN Perera VENOUS 6 Y MEDICAL [facility] [place] [address] [facility] ERYTHROPO 6 DARRYL DARRYL [place] [address] LAB D[facility] LAB D[facility] FERRITIN 6 DARRYL DARRYL [facility] CYANOCOBA 82862 [facility] D[facility] JENNY 6 DARRYL DARRYL VITAMIN HOLDINGS [place] B-12 [place] [address] LAB DIEGO LAB DIE[facility] FOLIC 6 [facility] [place] [address] LAB DIEGO LAB DIEGO IRON 6 DARRYL DARRYL [facility] NONINVASI 64155 SHERMAN MANZANARES VE 6 Y MEDICAL [facility] EAR/PULSE CLINIC OXIMETRY SINGLE DETER LACTATE 87755 [facility] DEHYDROGE 6 [facility] [place] [address] LAB DIEGO LAB DIEGO [id number] 6 DARRYL DARRYL SFERRIN [employer] HOLDINGS BLOOD 76207 LAB D[facility] DIEGO COUNT 6 DARRYL DARRYL COMPLETE [employer] HOLDINGS AUTO&AUTO DIFRNTL WBC BLOOD 66906 [facility] COUNT 6 [facility] RETICULOC [place] [address] KUSH GABRIEL [address] [place] [address] DYSFUNCTI ON&/ORAL FUNCJ FEEDING INTERROGA 96024 [facility] BRITANY TION 6 PHYSICIAN MAT EVALUATIO S GROUP N IN PERSON ILR SYSTEM ECG 98459 GOMEZ DYER ROUTINE 6 [facility]OS[facility] ECG INC INC W/LEAST 12 LDS TRCG ONLY W/O I&[place] [address] KUSH GABRIEL [address] [place] [address] DYSFUNCTI ON&/ORAL FUNCJ FEEDING HOS BED E0260 NAOMIE AKBAR SEMI-ELEC 6 HOME HOME W/ANY MEDICAL MEDICAL TYPE SIDE EQUIPME EQUIPME RAIL W/MATTRSS O2 CONC 1 E1390 NAOMIE GORDON 6 HOME HOME 85%/>02 MEDICAL MEDICAL CONC AT EQUIPME EQUIPME [facility] FLW RATE PRESCRIPT J8499 [facility] ION DRUG [address] [place] [address] NONCHEMOT HERAPEUTI C NOS PRESSURIZ 64299 [facility] ED/NONPRE [address] [place], [place] [address]URIZED [facility] [place] [address] [facility] IRON [address] [place] [address] IRON 21670 [facility] BINDING [address] [place] [address] [place] [address] [facility] FOLIC [address] [place] [address] ACID [facility] SERUM CYANOCOBA 22977 [facility] JENNY [address] [place] [address] B-12 [place] [address] [facility] FERRITIN [address] [place] [address] BASIC 22998 [facility] METABOLIC [address] [place] [address] CALCIUM TOTAL GENERAL 76403 [facility] HEALTH [address] [place] [address] [place] [address] [facility] LACTATE [address] [place] [address] CREATINE 16638 [facility] KINASE [address] [place] [address] HOSPITAL COLLECTIO 74647 [facility] N VENOUS [address] [place] [address] [place] [address] [facility] HEAD/BRAI [address] [place] [address] W/O [facility] [place] [address] [facility] INFUSION [address] [place] [address] HOSPITAL INITIAL 31 MIN-1 [place] [address] [facility] INFUSION [address] [place] [address] EACH ADDITIONA L HOUR ECG 55162 [facility] ROUTINE 6 DESIRE PHI ECG EMERGENCY W/LEAST PHYS 12 LDS I&R ONLY ECG 71955 [facility] ROUTINE [address] [place] [address] HOSPITAL W/LEAST 12 LDS TRCG ONLY W/O I&[place] [address] [facility] TROPONIN [address] [place] [address] [place] [address] [facility] MAGNESIUM [address] [place] [address] [place] [address] KUSH CURRIE FREE [address] [place] [address] HOSPITAL INFUSION J7030 KUSH CURRIE NORMAL [address] [place] [address] HOSPITAL SOLUTION 1000 CC HOSPITAL G0378 CURRIETAMI CURRIE OBSERVATI [address] [place] [address] HOSPITAL SERVICE PER HOUR CRITICAL 79235 [facility] 6 DESIRE PHI ILL/INJUR EMERGENCY ED PHYS PATIENT INIT 30-[place] [address] DYSFUNCTI ON&/[place] [address] DYSFUNCTI ON&/[place] [address] DYSFUNCTI ON&/[place] [address] DYSFUNCTI ON&/[place] [address] DYSFUNCTI ON&/[place] [address] DYSFUNCTI ON&/ORAL FUNCJ FEEDING RADIOLOGI 76262 [facility] 6 MEDICAL EXAMINATI IMAGING ON EYE ASS DETECT FOREIGN BODY 3D 27763 [facility] JARRETT RENDERING 6 MEDICAL DEMARCUS W/INTERP IMAGING & ASS POSTPROCE SS SUPERVISI ON MRI 92679 [facility] JARRETT SPINAL 6 MEDICAL DEMARCUS CANAL IMAGING LUMBAR ASS W/O CONTRAST MATERIAL ECG 28810 GOMEZ DYER ROUTINE 6 [facility] ECG INC INC W/LEAST 12 LDS TRCG ONLY W/O I&[place] [address] DYSFUNCTI ON&/ORAL FUNCJ FEEDING PET 84194 SHERMAN MANZANARES IMAGING 6 Y MEDICAL [facility] FOR [facility] CLINIC ATTENUATI ON WHOLE BODY FLUORODEO A9552 SHERMAN MANZANARES XYGLUCOSE 6 Y MEDICAL [facility] F-18 FDG CLINIC DX UP TO [address] [place] [address] KUSH GABRIEL [address] [place] [address] DYSFUNCTI ON&/ORAL FUNCJ FEEDING HOS BED E0260 NAOMIE AKBAR SEMI-ELEC 6 HOME HOME W/ANY MEDICAL MEDICAL TYPE SIDE EQUIPME EQUIPME RAIL W/MATTRSS O2 CONC 1 E1390 NAOMIE AKBAR DEL PORT 6 HOME HOME 85%/>02 MEDICAL MEDICAL CONC AT [place] [address] KUSH GABRIEL [address] [place] [address] DYSFUNCTI ON&/[place] [address] KUSH GABRIEL [address] [place] [address] DYSFUNCTI ON&/ORAL FUNCJ FEEDING BLOOD 44587 [facility] DIEGO COUNT 6 DARRYL DARRYL COMPLETE [employer] AUTO&AUTO DIFRNTL WBC LACTATE 96695 [facility] DEHYDROGE 6 DARRYL DARRYL NASE LDH [facility] COMPREHEN 27822 [facility] SIVE 6 DARRYL DARRYL [employer] [address] KUSH GABRIEL [address] [place] [address] DYSFUNCTI ON&/[place] [address] KUSH GABRIEL [address] [place] [address] DYSFUNCTI ON&/[place] [address] KUSH GABRIEL [address] [place] [address] DYSFUNCTI ON&/ORAL FUNCJ FEEDING DRUG TST G0477 GOMEZ DYER PRESUMP;C 6 [facility] PBL BEING INC INC READ DC OPT OBV ONLY DRUG TEST G0481 GOMEZ DYER DEFINITV [address] [address] ID INC INC METH P DAY 8-[place] [address] KUSH GABRIEL [address] [place] [address] DYSFUNCTI ON&/[place] [address] KUSH GABRIEL [address] [place] [address] DYSFUNCTI ON&/[place] [address] KUSH CURRIE SWALLOWIN [address] [place] [address] DYSFUNCTI ON&/[place] [address] KUSH CURRIE SWALLOWIN [address] [place] [address] HOSPITAL DYSFUNCTI ON&/ORAL FUNCJ FEEDING DUPLEX 59839 GOMEZ GOMEZ SCAN 6 [facility] EXTRACRAN INC INC IAL ART COMPL BI STUDY HOS BED E0260 NAOMIE AKBAR SEMI-ELEC 6 HOME HOME W/ANY MEDICAL MEDICAL TYPE SIDE EQUIPME EQUIPME RAIL W/MATTRSS O2 CONC 1 E1390 NAOMIE AKBAR DEL PORT 6 HOME HOME 85%/>02 MEDICAL MEDICAL CONC AT EQUIPME EQUIPME PRSC FLW RATE INTERROGA 54379 [facility] BRITANY TION 6 PHYSICIAN MAT EVALUATIO S GROUP N IN PERSON ILR SYSTEM ECG 80497 GOMEZ DYER ROUTINE 6 [facility] ECG INC INC W/LEAST 12 LDS TRCG ONLY W/O I&R HOS BED E0260 NAOMIE NAOMIE SEMI-ELEC 6 HOME HOME W/ANY MEDICAL MEDICAL TYPE SIDE EQUIPME EQUIPME RAIL W/MATTRSS O2 CONC 1 E1390 NAOMIE AKBAR DEL PORT 6 HOME HOME 85%/>02 MEDICAL MEDICAL CONC AT EQUIPME EQUIPME PRSC FLW RATE DIRECT G0299 ST EDENILSON CASTELLANO RN 6 [facility] MARINE MAMMAL TRAINER MARINE MAMMAL TRAINER SPICE SET EA 15 MIN LACTATE 96092 [facility] D[facility] DEHYDROGE 6 DARRYL DARRYL NASE [facility] BLOOD 00203 [facility] DIEGO COUNT 6 DARRYL DARRYL COMPLETE [employer] AUTO&AUTO DIFRNTL WBC COMPREHEN 95410 [facility] DIE[facility] SIVE 6 DARRYL DARRYL METABOLIC [employer] PANEL DIRECT G0299 ST EDENILSON CASTELLANO RN 6 [facility] MARINE MAMMAL TRAINER MARINE MAMMAL TRAINER SPICE SET EA [address] EDENILSON CASTELLANO RN 6 [facility] MARINE MAMMAL TRAINER MARINE MAMMAL TRAINER SPICE SET EA 15 MIN HOME [place]; S9341 INFUSION INFUSION ENTERAL 6 PARTNERS PARTNERS NUTRITION OF OF VIA [place] GRAVITY; COAL HANDLER ENTRAL F B4152 INFUSION INFUSION NUTRITION 6 PARTNERS PARTNERS CMPL VASQUEZ OF OF DENSE [place] INTACT NUTRNTS INTERROGA 35600 [facility] BRITANY TION 6 PHYSICIAN MAT EVALUATIO S GROUP N IN PERSON ILR SYSTEM HOS BED E0260 NAOMIE AKBAR SEMI-ELEC 6 HOME HOME W/ANY MEDICAL MEDICAL TYPE SIDE EQUIPME EQUIPME RAIL W/MATTRSS DIRECT G0299 ST EDENILSON CASTELLANO RN 6 [facility] MARINE MAMMAL TRAINER SPICE SET EA 15 MIN O2 CONC 1 E1390 NAOMIE AKBAR DEL PORT 6 HOME HOME 85%/>02 MEDICAL MEDICAL CONC AT EQUIPME EQUIPME PRSC FLW RATE DIRECT G0299 ST EDENILSON CASTELLANO RN 6 [facility] MARINE MAMMAL TRAINER SPICE SET EA 15 MIN BLOOD 50784 GOMEZ DYER COUNT 6 [facility]OS[facility] COMPLETE INC INC AUTO&AUTO DIFRNTL WBC BASIC 57969 GOMEZ DYER METABOLIC 6 [facility]OS[facility] PANEL INC INC CALCIUM TOTAL RADIOLOGI 47541 [place] [address] MEDICAL DEMARCUS EXAMINATI IMAGING ON CHEST ASS SINGLE VIEW FRONTAL COLLECTIO 30357 GOMEZ DYER N VENOUS 6 [facility]OS[facility] BLOOD INC INC VENIPUNCT URE DIRECT G0299 ST EDENILSON CASTELLANO RN 6 [facility] MARINE MAMMAL TRAINER SPICE SET EA 15 MIN SBSQ 36391 [facility] 6 MEDICAL CARE/DAY SERV 25 FOUNDATIO MINUTES N ADDITIVE B4104 INFUSION INFUSION FOR 6 PARTNERS PARTNERS ENTERAL OF OF [place] ENTRAL F B4152 INFUSION INFUSION NUTRITION 6 PARTNERS PARTNERS CMPL VASQUEZ OF OF DENSE [place] INTACT NUTRNTS HOME [place]; S9341 INFUSION INFUSION ENTERAL 6 PARTNERS PARTNERS NUTRITION OF OF VIA [place]; [place] [address] TIFFANIE BRANDEE RETROPERI 6 MEDICAL ADR TONEAL SERV REAL TIME FOUNDATIO W/IMAGE N COMPLETE RADIOLOGI 51827 TIFFANIE OCONNELL HENRIK C 6 MEDICAL EXAMINATI SERV ON CHEST FOUNDATIO SINGLE N VIEW FRONTAL THORACENT 47670 TIFFANIE RAISSI ESIS 6 MEDICAL DRI NEEDLE/CA SERV TH PLEURA FOUNDATIO N W/IMAGING CYTP 08586 [facility] SLCTV 6 Y OF ОЛЕГ CELL [facility] H[facility]PI NT INTERPJ XCPT C/[place] [address] [facility] SURG 6 Y OF ОЛЕГ PATHOLOGY [facility] GROSS&KAMILA ROSCOPIC EXAM SBSQ 93768 [facility] 6 MEDICAL OS CARE/DAY SERV 25 FOUNDATIO MINUTES N SBSQ 43128 [facility] 6 MEDICAL OS CARE/DAY SERV 25 FOUNDATIO MINUTES N SBSQ 75300 [facility] 6 MEDICAL OS ROZINA CARE/DAY SERV 25 FOUNDATIO MINUTES N SBSQ 72170 [facility] 6 MEDICAL OS ROZINA CARE/DAY SERV 25 FOUNDATIO MINUTES N INITIAL 61447 [facility] 6 DESIRE A RIVAS CARE/DAY PHYSICIAN 70 SERVI MINUTES SWALLOWIN 79978 [facility] PEREZ Benson FUNCJ 6 MEDICAL SCO W/CINERAD SERV IOGRAPY/V FOUNDATIO IDRADIOG N RADIOLOGI 98584 [facility] C EXAM 6 MEDICAL CHEST 2 IMAGING VIEWS ASS FRONTAL&L ATERAL CT THORAX 40946 [facility] 6 MEDICAL W/CONTRAS IMAGING T ASS MATERIAL ECG 88572 [place] [facility] ROUTINE 6 MEDICAL NAN ECG SERV W/LEAST FOUNDATIO 12 LDS N I&R ONLY HOSPITAL 57724 [facility] 6 DESIRE IRM DAY PHYSICIAN MANAGEMEN SERVI T > 30 MIN SBSQ 72161 [facility] 6 DESIRE IRM CARE/DAY PHYSICIAN 25 SERVI MINUTES SBSQ 80197 [facility] 6 DESIRE IRM CARE/DAY PHYSICIAN 25 SERVI MINUTES SBSQ 97633 [facility] 6 DESIRE IRM CARE/DAY PHYSICIAN 25 SERVI MINUTES INITIAL 97777 [facility] 6 DESIRE IRM CARE/DAY PHYSICIAN 70 SERVI MINUTES O2 CONC 1 E1390 [place] [address] HOME HOME 85%/>02 MEDICAL MEDICAL CONC AT EQUIPME [facility] PRS FLW RATE DRUG TST G0477 GOMEZ DYER PRESUMP;C 6 MEM H[facility] MEM HOSP PBL BEING INC INC READ DC OPT OBV ONLY O2 CONC 1 E1390 NA[place]IE [place] [address] HOME HOME 85%/>02 [facility]ICAL [facility] FLW RATE DRUG TST G0477 [...] DRUG CL O2 CONC 1 E1390 [place]IE [place] [address] HOME HOME 85%/>02 MEDICAL MEDICAL CONC AT EQUIPME [facility] FLW RATE DRUG TST G0477 GOMEZ DYER PRESUMP;C 6 MEM H[facility] MEM HOSP PBL BEING INC INC READ DC OPT OBV ONLY INTERROGA 71704 [facility] BRITANY TION 5 CULAR MAT EVALUATIO CONSULTAN N IN TS O PERSON ILR SYSTEM INTERROGA 16443 [facility] BRITANY TION 5 CULAR MAT EVALUATIO CONSULTAN N IN TS O PERSON ILR SYSTEM O2 CONC 1 E1390 NAOMIE [facility] 5 HOME HOME 85%/>02 MEDICAL MEDICAL CONC AT EQUIPME [facility] FLW RATE ECG 58953 CARDIOVAS BRITANY ROUTINE 5 CULAR MAT ECG CONSULTAN W/LEAST TS O 12 LDS I&R ONLY ECG 52892 GOMEZ DYER ROUTINE 5 [facility] ECG INC INC W/LEAST 12 LDS TRCG ONLY W/O I&R INTERROGA 16579 CARDIOVAS BRITANY TION 5 CULAR MAT EVALUATIO CONSULTAN N IN TS O PERSON ILR SYSTEM O2 CONC 1 E1390 NAOMIE [facility] 5 HOME HOME 85%/>02 MEDICAL MEDICAL CONC AT EQUIPME [facility] FLW RATE INJECTION J0696 GOMEZ MINAYAEMILI 5 [facility] NE SODIUM PER 250 MG THERAPEUT 02190 GOMEZ HICKMAN IC 5 [facility] TIC/DX INJECTION SUBQ/IM HOSPITAL 25017 [facility] 5 DESIRE DAY PHYSICIAN MANAGEMEN SERVI T > 30 MIN SBS 37146 [facility] 5 Y MEDICAL [facility] CARE/DAY CLINIC 35 MINUTES SBS 76146 [facility] 5 DESIRE CARE/DAY PHYSICIAN 25 SERVI MINUTES INITIAL 94318 [facility] 5 DESIRE CARE/DAY PHYSICIAN 30 SERVI MINUTES INITIAL 34574 [facility] 5 Y MEDICAL [facility] CARE/DAY CLINIC 70 MINUTES RADIOLOGI 62349 [facility] C EXAM 5 NGOZI CHEST 2 RADIOLOGY VIEWS ASSOCIAT FRONTAL&L ATERAL INTERROGA 94230 CARDIOV[facility] BRITANY TION 5 CULAR MAT EVALUATIO CONSULTAN N IN TS O PERSON ILR SYSTEM ECG 29246 [facility] BRITANY ROUTINE 5 CULAR MAT ECG CONSULTAN W/LEAST TS O 12 LDS I&R ONLY ECG 21715 GOMEZ DYER ROUTINE 5 [facility] ECG INC INC W/LEAST 12 LDS TRCG ONLY W/O I&R O2 CONC 1 E1390 NAOMIE GORDON 5 HOME HOME 85%/>02 MEDICAL MEDICAL CONC AT EQUIPME [facility] FLW RATE LOCM Q9967 GOMEZ DYER 300-399 5 [facility] MG/ML INC INC IOD[place] [address] GOMEZ DYER UREA 5 [facility]OS[facility] NITROGEN INC INC QUANTITAT [place] COLLECTIO 04909 GOMEZ DYER N VENOUS 5 MEM HOS[facility]OS[facility] BLOOD INC INC VENIPUNCT URE CT SOFT 61021 PATR[facility]IA PHILIP ALL TISSUE 5 MEDICAL NECK W/O IMAGING & ASS W/[place] [address] GOMEZ DYER ANGIOGRAP 5 MEM H[facility] HY NECK INC INC W/CONTRAS T/NONCONT RAST CREATININ 63750 GOMEZ DYER E BLOOD 5 MEM [facility] HOSP INC INC PET 64698 [facility] 5 Y MEDICAL [facility] FOR [facility] CLINIC ATTENUATI ON WHOLE BODY FLUORODEO A9552 [facility] XY[facility]SE 5 Y MEDICAL [facility] F-18 FDG CLINIC DX UP TO [address] THORAX 31180 CURRIE LAURENCE W/O & 5 REGIONAL GLE W/CONTRAS MEDICAL T BELKIS MATERIAL CT SOFT 57383 KUSH LAURENCE TISSUE 5 REGIONAL GLE NECK W/O MEDICAL & [place] [address] KUSH WILLISMACK HEAD/BRAI 5 REGIONAL GLE N W/O & MEDICAL W/CONTRAS BELKIS T MATERIAL GENERAL 40021 [facility] DIEGO HEALTH 5 DARRYL DARRYL [place] [address] LAB DIEGO [facility] D[facility] FOLIC 5 DARRYL DARRYL ACID [employer] SERUM CYANOCOBA 89794 LAB [facility] JENNY 5 DARRYL DARRYL VITAMIN HOLDINGS HOLDINGS B-12 LACTATE 52517 LAB [facility] DEHYDROGE 5 DARRYL DARRYL NASE [facility] [employer] ECG 93054 GOMEZ DYER ROUTINE 5 [facility] HOSP ECG INC INC W/LEAST 12 LDS TRCG ONLY W/O I&R ECG 37336 CARDIOVAS BRITANY ROUTINE 5 CULAR MAT ECG CONSULTAN W/LEAST TS O 12 LDS I&R ONLY O2 CONC 1 E1390 NAOMIE [facility]ION [facility] 5 HOME HOME 85%/>02 MEDICAL MEDICAL CONC AT EQUIPME EQUIPME PRS FLW RATE ECG 33199 CARDIOVAS BRITANY ROUTINE 5 CULAR MAT ECG CONSULTAN W/LEAST TS O 12 LDS I&R ONLY ECG 10447 GOMEZ DYER ROUTINE 5 [facility] ECG INC INC W/LEAST 12 LDS TRCG ONLY W/O I&R DUPLEX 02733 PATRICIA PHILIP ALL SCAN 5 MEDICAL EXTRACRAN IMAGING IAL ART ASS COMPL BI STUDY ECG 40684 GOMEZ DYER ROUTINE 5 [facility]OS[facility] ECG INC INC W/LEAST 12 LDS TRCG ONLY W/O I&R ECG 13057 CARDIOVAS CARDIOVAS ROUTINE 5 CULAR CULAR ECG CONSULTAN CONSULTAN W/LEAST TS O TS O 12 LDS I&R ONLY IMPLANTAT 31104 CARDIOVAS BRITANY ION 5 CULAR MAT PT-ACTIVA CONSULTAN VIVIAN TS O CARDIAC EVENT RECORDER O2 CONC 1 E1390 [facility]/>[facility] 64211 CARDIOVAS BRITANY ROUTINE 5 CULAR MAT ECG CONSULTAN W/LEAST TS O 12 LDS I&R ONLY ECG 52710 [facility] ROUTINE 5 [facility] ECG INC INC W/LEAST 12 LDS TRCG ONLY W/O I&R ECG 74456 CARDIOVAS BRITANY ROUTINE 5 CULAR MAT ECG CONSULTAN W/LEAST TS O 12 LDS W/I&R O2 CONC 1 E1390 [facility] 85%/>02 [facility] [place] [address] GOMEZ DYER THYROXINE 5 [facility] [place] [address] [facility] THYROID 5 [facility] STIMULATI INC INC NG HORMONE TSH BLOOD 15729 [facility] COUNT 5 [facility] COMPLETE INC INC AUTO&AUTO DIFRNTL WBC COLLECTIO 56568 G[facility] DY[facility] N VENOUS 5 [facility] [place] [place] [address] GOMEZ [facility]YER FOLIC 5 [facility] ACID INC INC SERUM CYANOCOBA 63148 [facility] D[facility] JENNY 5 [facility] VITAMIN INC INC B-12 25 33936 [facility] HYDROXY 5 [facility] INCLUDES INC INC FRACTIONS IF PERFORMED COMPREHEN 97071 [facility] D[facility] SIVE 5 [facility] METABOLIC INC INC PANEL COMPREHEN 78316 JESSICADOWALFONSO MEADOWVIE SIVE 5 W W METABOLIC REGIONAL REGIONAL PANEL MEDICAL MEDICAL CREATINE 65048 MEADOWVIE MEADOWVIE KINASE 5 W W [place] [address] MEADOWVIE MEADOWVIE HEAD/BRAI 5 W W N W/O REGIONAL REGIONAL CONTRAST MEDICAL MEDICAL MATERIAL RADIOLOGI 55884 MEADOWVIE MEADOWVIE C 5 W W EXAMINATI REGIONAL REGIONAL ON CHEST MEDICAL MEDICAL SINGLE VIEW FRONTAL BLOOD 60778 MEADOW[facility]IE MEADOWVIE COUNT 5 W W COMPLETE REGIONAL REGIONAL AUTO&AUTO [place] [address] MEADOWVIE MEADOWVIE TROPONIN 5 W W QUANTITAT REGIONAL REGIONAL [place] MEDICAL MEDICAL INFUSION J7030 MEADOWVIE MEADOWVIE NORMAL 5 W W SALINE REGIONAL REGIONAL SOLUTION MEDICAL MEDICAL 1000 CC ECG 83173 [facility] ROUTINE 5 DESIRE TARAH ECG EMERGENCY W/LEAST PHYS 12 LDS I&R ONLY ECG 08366 MEADOWVIE MEADOWVIE ROUTINE 5 W W ECG REGIONAL REGIONAL W/LEAST MEDICAL MEDICAL 12 LDS TRCG ONLY W/[place] [address] MEADOWVIE MEADOWVIE INFUSION 5 W W HYDRATION REGIONAL REGIONAL INITIAL MEDICAL MEDICAL 31 MIN-[place] [address] [facility] [place] [facility] CRV [facility] CRTD ART MEDICAL EMBOLIC G PROTECJ RADIOLOGI 22444 [facility] [place] [facility] C EXAM 5 RADIOLOGY CAR CHEST 2 VIEWS FRONTAL&[place] [address] [facility] [place] STENT CRV 5 [facility] CRTD ART MEDICAL EMBOLIC G PROTECJ SLCTV 03040 [facility] [place] CATH [facility] CAROTID/I MEDICAL NNOM ART G ANGIO XTRCRANL ART PERCUTANE [address] ANGIOPLAS TY EXTRACRAN IAL VESSELS PERCUTANE 0063 [facility] OUS [address] [place] [address] HOSPITAL INSERTION CAROTID ARTERY STENT(S) INSERTION 0045 [facility] OF ONE [address] [place] [address] VASCULAR STENT PROCEDURE 0040 [facility] ON [address] [place] [address] SINGLE VESSEL PROCEDURE 0044 [facility] ON [address] [place] [address] VESSEL BIFURCATI ON DUPLEX 31032 [facility] [place] SCAN [facility] EXTRACRAN MEDICAL IAL ART G COMPL BI STUDY THERAPEUT 09657 [facility] IC 5 PHYSICIAN [facility] PROPHYLAC S GROUP TIC/DX INJECTION SUBQ/IM INJECTION J0696 [facility] 5 PHYSICIAN [facility] CEFTRIAXO S GROUP NE SODIUM PER 250 MG INJECTION J1040 [facility] 5 PHYSICIAN [facility] METHYLPRE S GROUP DNISOLONE ACETATE 80 [place] SBSQ 76750 [facility] 5 CULAR MAT CARE/DAY CONSULTAN 25 TS O MINUTES OBSERVATI 42720 [facility] ON CARE 5 [place] [address] [facility] HEAD/BRAI 5 VENANCIO N W/O RADIOLOGY CONTRAST ASSOCIAT MATERIAL RADIOLOGI 79603 [facility] C 5 EXAMINATI RADIOLOGY RADIOLOGY ON CHEST ASSOCIAT ASSOCIAT [facility] 60601 [facility] BR[facility] CATH 5 CULAR MAT INTRNL CONSULTAN CAROTID TS O ART ANGIO INTRCRNL ART [facility] 76666 [facility] CATHJ EA 5 CULAR MAT 1ST ORD CONSULTAN ABDL TS O PEL/LXTR ART BRNCH DUPLEX 25243 [facility] VENANCIO EXTRACRAN RADIOLOGY IAL ART ASSOCIAT COMPL BI STUDY CATH PLMT 94732 [facility] BRITANY L HRT & 5 CULAR MAT ARTS CONSULTAN W/NJX & TS O ANGIO IMG S&I ECG 38095 [facility] BLACK JAZZMINE ROUTINE 5 CULAR ECG CONSULTAN W/LEAST TS O 12 LDS W/I&R INITIAL 78907 [facility] OBSERVATI 5 VALLEY ABR ON HEART [...] PER ML O2 CONC 1 E1390 NAOMIE [facility] 5 HOME HOME 85%/>02 MEDICAL MEDICAL CONC AT EQUIPME [facility] FLW RATE BLOOD 10220 KUSH CURRIE COUNT 5 CO CO [facility] AUTO&AUTO DIFRNTL WBC COMPREHEN 15914 KUSH CURRIE SIVE 5 CO [facility] PANEL COMPREHEN 63273 GOMEZ DYER SIVE 5 MEM [facility] METABOLIC INC INC PANEL BLOOD 80431 GOMEZ GOMEZ COUNT 5 MEM [facility] COMPLETE INC INC AUTO&AUTO DIFRNTL WBC HEMOGLOBI 48518 GOMEZ DYER N 5 MEM [facility] GLYCOSYLA INC INC VIVIAN A1C ADMN SET A7005 YOUR YOUR W/SM VOL 5 PHARMACY PHARMACY [facility] NEBULIZR NON-DISPB L O2 CONC 1 E1390 [facility] 5 HOME HOME 85%/>02 [facility]ICAL [facility] FLW RATE INJECTION J1030 KUSH CURRIE 5 CO [facility] DNISOLONE ACETATE 40 MG BLOOD 17905 KUSH CURRIE COUNT 5 CO CO [facility] AUTO&AUTO DIFRNTL WBC PRESSURIZ 80725 KUSH CURRIE ED/NONPRE 5 CO CO [facility] INHALATIO N TREATMENT THERAPEUT 63103 KUSH CURRIE IC 5 CO [facility] TIC/DX INJECTION SUBQ/IM BASIC 25323 KUSH CURRIE METABOLIC 5 CO [facility] CALCIUM TOTAL COLLECTIO 68345 KUSH CURRIE N VENOUS 5 CO [facility] VENIPUNCT URE RADIOLOGI 85875 BANNER EXAM 5 DESIRE JAM CHEST 2 EMERGENCY VIEWS PHYS FRONTAL&L ATERAL O2 CONC 1 E1390 [facility] 5 HOME HOME 85%/>02 MEDICAL MEDICAL CONC AT EQUIPME EQUIPME PRSC FLW RATE OPHTH 03002 [facility] 5 GRE GRE XM&EVAL COMPRE NEW PT 1/> VST O2 CONC 1 E1390 [facility] 5 HOME HOME 85%/>02 MEDICAL [...] METABOLIT HOLDINGS HOLDINGS ES EACH PROCEDURE CREATININ 69513 LAB DIEGO LAB DIEGO E OTHER 5 DARRYL DARRYL SOURCE HOLDINGS HOLDINGS LIPID 41991 LAB DIEGO LAB DIEGO PANEL 5 DARRYL DARRYL HOLDINGS HOLDINGS GENERAL 43062 LAB DIEGO LAB DIEGO HEALTH 5 DARRYL DARRYL PANEL HOLDINGS HOLDINGS COLLECTIO 13276 CHENCHO ELENA N VENOUS 5 CLINIC BLOOD [...] YOUR YOUR W/SM VOL 4 PHARMACY [facility] NE[facility]UL[facility] NON-DISPB L O2 CONC 1 [...] EQUIPME EQUIPME PRSC FLW RATE LOCM Q[address] [facility] [phone] Y Y MG/ML HOSPITAL HOSPITAL IODINE CONCENTRA TION PER ML CT SOFT 70266 [facility] 4 Y Y NECK [facility] W/CONTRAS T MATERIAL CT THORAX 05244 [place] [facility] JONATAN 4 MEDICAL W/CONTRAS SERV T FOUNDATIO MATERIAL COLLECTIO 63928 CHENCHO Perera VENOUS 4 CLINIC NHI BLOOD VENIPUNCT URE COMPREHEN 63538 LAB DIEGO LAB DIEGO SIVE 4 DARRYL DARRYL METABOLIC HOLDINGS HOLDINGS PANEL BLOOD 25239 LAB DIEGO LAB DIGEO COUNT 4 DARRYL DARRYL COMPLETE [place] [address] LAB DIEGO LAB DIEGO PROSTATE 4 DARRYL DARRYL SPECIFIC [place] [address] LAB DIEGO LAB DIEGO PROSTATE 4 DARRYL DARRYL SPECIFIC [place] [address] LAB DIGEO LAB DIEGO FREE 4 DARRYL DARRYL [place] [address] LAB DIEGO LAB DIEGO TRIIODOTH 4 DARRYL DARRYL YRONINE HOLDINGS HOLDINGS T3 [place] [address] [place] [address] LAB DIEGO LAB DIEGO THYROID 4 DARRYL [...] YOUR YOUR W/SM VOL 4 PHARMACY PHARMACY [employer] [place] [address] LAB DIEGO LAB DIEGO THYROID 4 OF DARRYL STIMULATI DARRYL HOLDINGS NG HOLDINGS HORMONE TSH BLOOD 02210 LAB DIEGO LAB DIEGO COUNT 4 OF DARRYL COMPLETE DARRYL HOLDINGS AUTOMATED HOLDINGS COMPREHEN 87315 LAB DIEGO LAB DIEGO SIVE 4 OF DARRYL METABOLIC DARRYL HOLDINGS PANEL HOLDINGS LIPID 77553 LAB DIEGO LAB DIEGO PANEL 4 OF DARRYL DARRYL HOLDINGS HOLDINGS CREATINE 53724 LAB DIEGO LAB DIEGO KINASE 4 OF DARRYL TOTAL DARRYL HOLDINGS HOLDINGS COLLECTIO 86947 CHENCHO FISCHER N VENOUS 4 CLINIC SE [...] YOUR YOUR SM VOL 4 PHARMACY PHARMACY [employer] PNEUMAT NEBULIZR DISPBL IM ADM 02515 CHENCHO HUTCHINS- PRQ ID 4 CLINIC SE YOSVANY SUBQ/IM NJXS 1 VACCINE IIV3 51725 CHENCHO HUTCHINS- VACCINE 4 CLINIC SE YOSVAYN SPLIT VIRUS 0.5 ML DOSAGE IM USE [...] [employer] [facility] PNEUMAT NEBULIZR DISPBL DUPLEX 78791 zhiwo, zhiwo, SCAN 3 RESEARCH GEOLOGIST RESEARCH GEOLOGIST EXTRACRAN JESSIE ROMAN IAL ART CO HOS CO HOS COMPL BI STUDY LIPID 20205 LAB DIEGO LAB DIEGO PANEL 3 DARRYL DARRYL HOLDINGS HOLDINGS GENERAL 58364 LAB DIEGO LAB DIEGO HEALTH 3 DARRYL [...] AT EQUIPME EQUIPME PRSC FLW RATE COMPREHEN 64457 LAB DIEGO LAB DIEGO SIVE 3 OF AMERIC METABOLIC DARRYL HOLDING PANEL HOLDINGS LIPID 26530 LAB DIEGO LAB DIEGO PANEL 3 OF AMERIC DARRYL HOLDING HOLDINGS CREATINE 10831 LAB DIEGO LAB DIEGO KINASE 3 OF AMERIC TOTAL DARRYL HOLDING HOLDINGS BLOOD 97632 LAB DIEGO LAB DIEGO COUNT 3 OF AMERIC COMPLETE DARRYL [place] [address] LAB DIEGO LAB DIEGO THYROID 3 OF AMERIC STIMULATI DARRYL HOLDING NG HOLDINGS HORMONE TSH ADMN SET A7003 YOUR YOUR SM VOL 3 PHARMACY PHARMACY NONFILTR [facility] PNEUMAT NEBULIZR DISPBL O2 CONC 1 E1390 [facility] 3 HOME HOME 85%/>02 MEDICAL MEDICAL CONC AT EQUIPME EQUIPME PRSC FLW RATE ADMN SET A7003 YOUR YOUR SM VOL 3 PHARMACY PHARMACY NONFILTR [facility] PNEUMAT NEBULIZR DISPBL LOCM Q9967 [facility] [phone] 3 MG/ML DIAGNOSTI DIAGNOSTI IODINE C CENTER, C CENTER, CONCENTRA TION PER ML CT SOFT 08064 [facility] TISSUE 3 NECK DIAGNOSTI DIAGNOSTI W/CONTRAS C CENTER, C CENTER, T MATERIAL CT THORAX 78400 [facility] 3 W/CONTRAS DIAGNOSTI DIAGNOSTI T C CENTER, C CENTER, MATERIAL O2 CONC 1 E1390 [facility] 3 HOME HOME 85%/>02 MEDICAL MEDICAL CONC AT EQUIPME EQUIPME PRSC FLW RATE ADMN SET A7003 YOUR YOUR SM VOL 3 PHARMACY PHARMACY NONFILTR [facility] PNEUMAT NEBULIZR DISPBL O2 CONC 1 E1390 [facility] 3 HOME HOME 85%/>02 MEDICAL MEDICAL CONC AT EQUIPME EQUIPME PRSC FLW RATE ADMN SET A7003 YOUR YOUR SM VOL 3 PHARMACY PHARMACY NONFILTR [facility] PNEUMAT NEBULIZR DISPBL O2 CONC 1 E1390 [facility] 3 HOME HOME 85%/>02 MEDICAL MEDICAL CONC AT EQUIPME EQUIPME PRSC FLW RATE ADMN SET A7003 YOUR YOUR SM VOL 3 PHARMACY PHARMACY NONFILTR [facility] PNEUMAT NEBULIZR DISPBL O2 CONC 1 E1390 [facility]IE [facility] 3 HOME HOME 85%/>02 MEDICAL MEDICAL CONC AT EQUIPME EQUIPME PRSC FLW RATE NEBULIZER E0570 NAOMIE AK[facility] WITH 3 HOME HOME COMPRESSO MEDICAL MEDICAL R EQUIPME EQUIPME ADMN SET A7003 YOUR YOUR SM VOL 3 PHARMACY PH[facility] PNEUMAT NEBULIZR DISPBL CYANOCOBA 86854 LAB DIEGO LAB DIEGO JENNY 3 DARRYL DARRYL VITAMIN HOLDINGS HOLDINGS B-12 [place] [address] LAB DIEGO LAB DIEGO FOLIC 3 DARRYL DARRYL ACID HOLDINGS HOLDINGS SERUM BLOOD 69813 LAB DIEGO LAB DIEGO COUNT 3 DARRYL DARRYL COMPLETE HOLDINGS HOLDINGS AUTO&AUTO DIFRNTL WBC ADMN SET A7003 YOUR YOUR SM VOL 3 PHARMACY PH[facility] [place] [address] LAB DIEGO LAB DIEGO THYROID 3 DARRYL DARRYL STIMULATI HOLDINGS HOLDINGS NG HORMONE TSH LIPID 79531 LAB DIEGO LAB DIEGO PANEL 3 DARRYL DARRYL HOLDINGS HOLDINGS COMPREHEN 57923 LAB DIEGO LAB DIEGO SIVE 3 DARRYL DARRYL METABOLIC HOLDINGS HOLDINGS PANEL CT THORAX [address] [facility] W/O 3 Y Y CONTRAST [facility] MATERIAL O2 CONC 1 E1390 NA[facility]IE [facility] 3 HOME HOME 85%/>02 MEDICAL MEDICAL CONC AT EQUIPME EQUIPME PRSC FLW RATE ADMN SET A7003 YOUR YOUR SM VOL 2 PHARMACY PHARMACY NONFILTR [facility] PNEUMAT NEBULIZR DISPBL O2 CONC 1 E1390 NA[facility]IE [facility] 2 HOME HOME 85%/>02 MEDICAL MEDICAL CONC AT EQUIPME EQUIPME PRSC FLW RATE CT THORAX 42105 ATTILI ATTILI 2 ANI ANI W/CONTRAS T MATERIAL CT SOFT 64716 RHONDA KHAN TISSUE 2 NECK W/CONTRAS T MATERIAL ADMN SET A7003 YOUR YOUR SM VOL 2 PHARMACY PHARMACY NONFILTR [facility] PNEUMAT NEBULIZR DISPBL O2 CONC 1 E1390 NAOMIE AKBAR [facility] 2 HOME HOME 85%/>02 MEDICAL MEDICAL CONC AT EQUIPME EQUIPME PRSC FLW RATE ADMN SET A7003 YOUR YOUR SM VOL 2 PHARMACY PH[facility] PNEUMAT NEBULIZR DISPBL O2 CONC 1 E1390 NAOMIE [facility] 2 HOME HOME 85%/>02 MEDICAL MEDICAL CONC AT EQUIPME EQUIPME PRSC FLW RATE ADMN SET A7003 YOUR YOUR SM VOL 2 PHARMACY PHARMACY [facility] PNEUMAT NEBULIZR DISPBL IIV3 26001 MARGO ARAGON VACCINE 2 Apr SPLIT VIRUS 0.5 ML DOSAGE IM USE IM ADM 39490 MARGO ARAGON PRQ ID 2 Apr SUBQ/IM NJXS 1 VACCINE O2 CONC 1 E1390 NAOMIE [facility] 2 HOME HOME 85%/>02 MEDICAL MEDICAL CONC AT EQUIPME EQUIPME PRSC FLW RATE ADMN SET A7003 YOUR YOUR SM VOL 2 PHARMACY PH[facility] PNEUMAT NEBULIZR DISPBL O2 CONC 1 E1390 NAOMIE [facility] [place] 2 HOME HOME 85%/>02 MEDICAL MEDICAL CONC AT EQUIPME EQUIPME PRSC FLW RATE ADMN SET A7003 YOUR YOUR SM VOL 2 PHARMACY PHARMACY NONFIL [facility] PNEUMAT NEBULIZR DISPBL POLYSOM 86627 [employer], [employer], 6/>YRS 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 AUDIOMETR 2 Y Y Y [facility] THRESHOLD EVAL SP RECOGNIJ TYMPANOME 18452 [facility] 2 Y Y HOSPITAL HOSPITAL O2 CONC 1 E1390 [facility]IE [facility] [place] 2 HOME HOME 85%/>02 MEDICAL MEDICAL CONC AT EQUIPME EQUIPME PRSC FLW RATE ADMN SET A7003 YOUR YOUR SM VOL 2 PHARMACY PHARMACY NONFILTR [facility] LLC PNEUMAT NEBULIZR DISPBL O2 CONC 1 E1390 NAOMIE [facility] [place] 2 HOME HOME 85%/>02 MEDICAL MEDICAL CONC AT EQUIPME EQUIPME PRSC FLW RATE ADMN SET A7003 YOUR YOUR SM VOL 2 PHARMACY PHARMACY NONFILTR LLC LLC PNEUMAT NEBULIZR DISPBL LOCM Q[address] [facility] [phone] 2 Y Y MG/ML HOSPITAL HOSPITAL IODINE CONCENTRA TION PER ML CT SOFT 83259 [facility] 2 Y Y NECK [facility] W/CONTRAS T MATERIAL CT THORAX 30448 [place] PAYNE 2 MEDICAL KAMILA W/CONTRAS SERV T FOUNDATIO MATERIAL CREATININ [address] 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 BUSINESS EDUCATION Y PROC BLOOD 13441 JESSIE ROMAN COUNT 2 CO CO [facility] AUTO&AUTO DIFRNTL WBC BASIC 90517 JESSIE ROMAN METABOLIC 2 CO CO [facility] CALCIUM TOTAL RADIOLOGI 58699 [facility] C EXAM 2 NGOZI CHEST 2 RADIOLOGY VIEWS ASSOCIAT FRONTAL&L ATERAL RADIOLOGI 10459 JESSIE ROMAN C 2 CO CO [facility] ON NECK SOFT TISSUE ADMN SET A7003 YOUR YOUR SM VOL 1 PHARMACY PHARMACY NONFILTR Where LLC PNEUMAT NEBULIZR DISPBL IM ADM 36501 NABEELTrever ARAGON PRQ ID 1 Apr SUBQ/IM NJXS 1 VACCINE IIV3 26329 NABEELN NABEELN VACCINE 1 Apr SPLIT VIRUS 0.5 ML DOSAGE IM USE [address] SOFT 41521 AMATO AMATO TISSUE 1 JONATAN JONATAN NECK W/CONTRAS T MATERIAL CT THORAX [address] [facility] 1 Y Y [facility] MATERIAL ADMN SET A7003 YOUR YOUR SM VOL 1 PHARMACY PHARMACY NONFILTR Where LLC PNEUMAT NEBULIZR DISPBL LOCM Q9967 [facility] 300-399 1 Y Y MG/ML [facility] IODINE CONCENTRA TION PER ML VISUAL 50686 [facility] FIELD XM 1 GRE GRE UNI/BI W/INTERP EXTENDED EXAM RADEX 68899 HAGISIDRO CRAIN SPINE 1 EIDER ULICES EIDER ULICES LUMBOSACR AL MINIMUM 4 VIEWS ADMN SET A7003 YOUR YOUR SM VOL 1 PHARMACY PHARMACY NONFILTR Where LLC PNEUMAT NEBULIZR DISPBL RADIOLOGI 14677 JESSIE Jimenez EXAM 1 CO CO CHEST 2 [facility] VIEWS FRONTAL&L ATERAL PRESSURIZ 40109 CHENCHO ARAGON ED/NONPRE 1 CLINIC CECILIA SSURIZED [place] [address] [facility] FREE 1 Y Y THYROXINE HOSPITAL HOSPITAL COLLECTIO [address] [facility] N VENOUS 1 Y Y BLOOD [facility] VENIPUNCT URE GENERAL 01212 [facility] 1 Y Y PANEL [facility] 71135 MEADOWVIE MEADOWVIE SIVE 1 W W METABOLIC [facility] PANEL MEDICAL MEDICAL COLLECTIO 38023 MEADOWVIE MEADOWVIE N VENOUS 1 W W BLOOD [facility] [place] [address] MEADOWVIE MEADOWVIE FREE 1 W W THYROXINE [facility] [place] [address] MEADOWVIE MEADOWVIE THYROID 1 W W STIMULATI [facility]AL NG MEDICAL MEDICAL HORMONE TSH BLOOD 47144 MEADOWVIE MEADOWVIE COUNT 1 W W COMPLETE [facility] REGIONAL AUTOMATED MEDICAL MEDICAL LARYNGOSC 87450 TIFFANIE BRUMFIELD OPY 1 MEDICAL FLEXIBLE SERV DIAGNOSTI FOUNDATIO C PET 06678 [facility] [address] [facility] [address] RADIOLOGY ATTENUATI ASSOCIAT [place] [address] JESSIE ROMAN THYROID 1 CO CO STIMULATI [facility] [place] [address] JESSIE ROMAN THYROXINE 1 CO CO TOTAL [facility] [place] [address] LABONE OF LABONE OF THYROID 1 [facility] [place] [address] [facility] UREA 1 Y Y [facility]OS[facility] QUANTITAT [place] CREATININ [address] [facility] E BLOOD 1 Y Y HOSPITAL HOSPITAL LARYNGOSC 53044 TIFFANIE FROST OPY 1 MEDICAL CECILIA FLEXIBLE SERV DIAGNOSTI FOUNDATIO C COLLECTIO 44783 [facility] N VENOUS 1 Y Y BLOOD [facility] VENIPUNCT URE CT SOFT 31896 [facility] FABIENNE TISSUE 1 Y NECK HOSPITAL W/CONTRAS T MATERIAL CT THORAX [address] [facility] 1 Y Y W/[facility] T MATERIAL COLLECTIO 82735 NIKITA SHELTON N VENOUS 1 W W BLOOD [facility] REGIONAL VENIPUNCT MEDICAL MEDICAL URE COMPREHEN 57984 NIKITA SHELTON SIVE 1 W W METABOLIC [facility] [place] [address] NIKITA SHELTON THYROID 1 W W STIMULATI [facility]IONAL [place] [address] NIKITA HILLWALFONSO FREE 1 W W THYROXINE [facility] MEDICAL MEDICAL BLOOD 14757 NIKITA HILLWALFONSO COUNT 1 W W COMPLETE [facility] [place] [address] KUSH CURRIE SWALLOWIN 1 [facility] DYSFUNCTI ON&/[place] [address] CURRIETAMI CURRIE SWALLOWIN 1 [facility] DYSFUNCTI ON&/[place] [address] CURRIETAMI CURRIE SWALLOWIN 1 [facility] DYSFUNCTI ON&/[place] [address] LABONE OF LABONE OF THYROID 1 [facility] STIMULATI NG HORMONE TSH COLLECTIO 55728 [facility] GR N VENOUS 1 [place] [address] CURRIETAMI UCRRIE SWALLOWIN 1 [facility] DYSFUNCTI ON&/[place] [address] CURRIETAMI CURRIE SWALLOWIN 1 [facility] DYSFUNCTI ON&/[place] [address] LABONE OF LABONE OF THYROID 1 [employer] [employer] [place] [address] CURRIE CURRIE SWALLOWIN 1 [facility] DYSFUNCTI ON&/[place] [address] CURRIE CURRIE SWALLOWIN 1 [facility] DYSFUNCTI ON&/ORAL FUNCJ FEEDING LARYNGOSC 10130 [place] [facility] OPY 1 MEDICAL CECILIA [place] [address] KUSH CURRIE SWALLOWIN 0 [facility] DYSFUNCTI ON&/[place] [address] KUSH CURRIE SWALLOWIN 0 [facility] DYSFUNCTI ON&/[place] [address] NIKITA SHELTON THYROID 0 W W STIMULATI [facility] [place] [address] NIKITA HILLWALFONSO FREE 0 W W THYROXINE [facility] MEDICAL BLOOD 06347 NIKITA MEADOWVIE COUNT 0 W W COMPLETE [facility] AUTOMATED MEDICAL MEDICAL COLLECTIO 12347 NIKITA SHELTON N VENOUS 0 W W BLOOD [facility] VENIPUNCT MEDICAL MEDICAL URE COMPREHEN 82757 NIKITA SHELTON SIVE 0 W W METABOLIC [facility] [place] [address] KUSH CURRIE SWALLOWIN 0 [facility] DYSFUNCTI ON&[place] [address] KUSH CURRIE SWALLOWIN 0 [facility] DYSFUNCTI ON&/[place] [address] KUSH CURRIE SWALLOWIN 0 [facility] DYSFUNCTI ON&/[place] [address] KUSH CURRIE SWALLOWIN 0 [facility] DYSFUNCTI ON&/[place] [address] KUSH CURRIE SWALLOWIN 0 [facility] DYSFUNCTI ON&/[place] [address] KUSH CURRIE SWALLOWIN 0 [facility] DYSFUNCTI ON&/ORAL FUNCJ FEEDING TAPE A4450 KUSH CURRIE NON-WATER 0 CO HOSP CO HOSP PROOF PER MED EQUIP MED EQUIP 18 & & SQUARE INCHES GAUZE A6402 KUSH CURRIE NON-IMPRE 0 CO HOSP CO HOSP G STERL MED EQUIP MED EQUIP 16 SQ/< & & W/O ADHES BORDR ENTERAL B4034 KUSH CURRIE FEEDING 0 CO HOSP [place] HOSP SUPPLY MED EQUIP MED EQUIP KIT; & & [place] [address] KUSH CURRIE SWALLOWIN 0 [facility] DYSFUNCTI ON&/[place] [address] KUSH CURRIE SWALLOWIN 0 [facility] DYSFUNCTI ON&/[place] [address] KUSH CURRIE SWALLOWIN 0 [facility] DYSFUNCTI ON&/[place] [address] KUSH CURRIE SWALLOWIN 0 [facility] DYSFUNCTI ON&/ORAL FUNCJ [place] [address] [facility] [address] RADIOLOGY ATTENUATI ASSOCI[place] [address] KUSH CURRIE SWALLOWIN 0 [facility] DYSFUNCTI ON&/[place] [address] KUSH CURRIE SWALLOWIN 0 [facility] DYSFUNCTI ON&/[place] [address] KUSH CURRIE SWALLOWIN 0 [facility] DYSFUNCTI ON&/[place] [address] KUSH CURRIE SWALLOWIN 0 [facility] DYSFUNCTI ON&/[place] [address] KUSH CURRIE SWALLOWIN 0 [facility] DYSFUNCTI ON&/ORAL FUNCJ FEEDING ENTERAL [id number] KUSH CURRIE FEEDING 0 [facility] SUPPLY MED EQUIP MED EQUIP KIT; & & SYRINGE FED PER DAY TAPE A4450 KUSH CURRIE NON-WATER 0 [facility] PROOF PER MED EQUIP MED EQUIP 18 & & [place] [address] KUSH CURRIE SWALLOWIN 0 [facility] DYSFUNCTI ON&/[place] [address] [facility] IRON 0 [facility] PREALBUMI 64353 [facility] N 0 [facility] [place] [address] QUE[facility] CHLOE QUEST CHLOE ZINC 0 JESSIE ROMAN [facility] [address] [facility] HEALTH 0 [facility] PANEL CYANOCOBA 99893 [facility] JENNY 0 [facility] VITAMIN B-[place] [address] [facility] FOLIC 0 [facility] [address] KUSH CURRIE SWALLOWIN 0 CO CO [facility] DYSFUNCTI ON&/ORAL FUNCJ FEEDING CULTURE 19111 JESSIE ROMAN BACTERIAL 0 CO CO [facility] QUANTTATI VE COLONY COUNT URINE ANTIBODY 14801 JESSIE ROMAN HELICOBAC 0 [address] [facility] PYLORI BLOOD 01562 JESSIE ROMAN COUNT 0 CO CO SMEAR [facility] MCRSCP W/[place] [address] JESSIE ROMAN LIPASE 0 CO [facility] COMPREHEN 25237 JESSIE ROMAN SIVE 0 CO CO METABOLIC [facility] PANEL URNLS DIP 56560 JESSIE LABORATOR 0 CO Y STICK[facility] LET ON OF [place] [address] [address]ESSIE ROMAN AMYLASE [address] [facility] COLLECTIO 12868 JESSIE LABORATOR N VENOUS 0 CO Y BLOOD [facility] CORPORATI VENIPUNCT ON OF AM URE THER 41737 JESSIE ROMAN PROPH/DX 0 CO CO NJX IV [facility] PUSH SINGLE/1S T SBST/[place] [address] KUSH CURRIE SWALLOWIN 0 CO CO [facility] DYSFUNCTI ON&[place] [address] KUSH CURRIE SWALLOWIN 0 CO CO [facility] DYSFUNCTI ON&/[place] [address] KUSH CURRIE SWALLOWIN 0 CO CO [facility] DYSFUNCTI ON&/ORAL FUNCJ FEEDING MOTION 75739 KUSH CURRIE FLUOR 0 CO CO [facility] SWLNG FUNCJ C/V REC SWALLOWIN 28886 JESSICA WELDON FUNCJ 0 NGOZI W/CINERAD RADIOLOGY IOGRAPY/[place] [address] [facility] CO CO G [facility] DYSFUNCTI ON&/ORAL FUNCJ FEEDING EVAL 04405 KUSH CURRIE ORAL&PHAR 0 CO CO YNGEAL [facility] SWLNG FUNCJ BLOOD 56275 NIIKTA HILLWALFONSO COUNT 0 W W COMPLETE [facility] AUTOMATED MEDICAL MEDICAL COLLECTIO 26399 NIKITA SHELTON N VENOUS 0 W W BLOOD [facility] [place] [address] JESSIE JESSIE INFUSION 0 CO CO HYDRATION [facility] INITIAL 31 MIN-1 [place] [address] [facility] HYDRATION [facility] [place] [address] JESSIE JESSIE INFUSION 0 CO CO THERAPY/P [facility] ROPHYLAXI S /DX 1ST TO 1 HR LARYNGOSC [address] [facility] OPY W/WO 0 Y Y TRACHEOSC [facility] OPY W/MICRO/T [place]ES[place] ANES [address]014 [place] ESOPH 0 MEDICAL CORY THYRD SERV LARYNX FOUNDATIO TRACH & LYMPH NECK 1YR ESOPHAGOS 39783 [place] SANTOSH COPY 0 MEDICAL CECILIA FLEXIBLE SERV TRANSORAL FOUNDATIO DIAGNOSTI C DILATION [address] [facility] ESOPH 0 Y Y UNGUIDED [facility] SOUND/YVETTE GIE 1/MULT PASS RINGERS J7120 [facility] LACTATE 0 Y Y INFUSION [facility] UP TO 1000 CC INJECTION J2250 [facility] 0 Y Y MIDAZOLAM [facility] HCL PER 1 MG INJECTION J[address] [facility] 0 Y Y DEXAMETHO [facility] SONE SODIUM PHOSPHATE 1 [address] INJE[address] [facility] 0 Y Y NEOSTIGMI [facility] NE METHYLSUL FATE UP TO 0.5 MG INJECTION J3[address] [facility] FENTANYL 0 Y Y CITRATE [facility] 0.1 MG INJE[address] J[address] [facility] 0 Y Y SUCCINYLC [facility] HOLINE CHLORIDE UP TO [address] SOFT [address] [facility] TISSUE 0 Y Y NECK [facility] W/CONTRAS T MATERIAL COLLECTIO [address] [facility] N VENOUS 0 Y Y BLOOD [facility] VENIPUNCT URE CT THORAX [address] [facility] 0 Y Y W/CONTRAS [facility] T MATERIAL CREATININ [address] [facility] E BLOOD 0 Y Y [facility] [place] [address] [facility] UREA 0 Y Y NITROGEN [facility] QUANTITAT [place] MOTION 27084 [facility] FLUOR 0 CO CO EVAL [facility] SWLN FUNCJ C/V REC SWALLOWIN 09539 JESSICA Benson FUNCJ 0 NGOZI W/CINERAD RADIOLOGY IOGRAPY/[place] [address] JESSIE ROMAN INFUSION 0 CO CO THERAPY/P [facility] ROPHYLAXI S /DX 1ST TO 1 [place] [address] JESSIE ROMAN INFUSION 0 CO CO THERAPY [facility] PROPHYLAX IS/[place] [address] JESSIE ROMAN INFUSION 0 CO CO THERAPY [facility] [place] [address] JESSIE BURRELLS INFUSION 0 CO CO THERAPY/P [facility] ROPHYLAXI S /DX 1ST TO [place] [address] JESSIE ROMAN INFUSION 0 CO CO THERAPY/P [facility] ROPHYLAXI S /DX 1ST TO [place] [address] JESSIE BURRELLS INFUSION 0 CO CO THERAPY [facility] [place] [address] JESSIE BURRELLS INFUSION 0 CO CO THERAPY/P [facility] ROPHYLAXI S /DX 1ST TO 1 [place] [address] JESSIE BURRELLS INFUSION 0 CO CO THERAPY [facility] PROPHYLAX IS/DX EA HOUR BLOOD 31159 JESSIE ROMAN COUNT 0 CO CO COMPLETE [facility] AUTO&AUTO DIFRNTL WBC CULTURE 44433 JESSIE ROMAN BACTERIAL 0 [place] BLOOD [facility] AEROBIC W/ID ISOLATES RADIOLOGI 21189 JESSIE ROMAN C EXAM 0 CO CO CHEST 2 HOSPITAL HOSPITAL VIEWS FRONTAL&L ATERAL COLLECTIO 94826 JESSIE ROMAN N VENOUS 0 CO [facility] VENIPUNCT URE URNLS DIP 81349 JESSIE JESSIE 0 CO CO STICK/TAB HOSPITAL HOSPITAL LET REAGENT AUTO MICROSCOP Y COMPREHEN 45228 JESSIE SANCHEZOLAS SIVE 0 CO CO METABOLIC [facility] PANEL RESP E0600 NAOMIE NAOMIE SUCTION 0 HOME MED HOME MED PUMP HOME EQUIP. L EQUIP. L MODEL PRTBLE/ST ATION ELEC TAPE A4450 [facility] NON-WATER 0 CO HOSP CO HOSP PROOF PER MED EQUIP MED EQUIP 18 & & SQUARE INCHES COMPREHEN 40857 MEADOWVIE MEADOWVIE SIVE 0 W W METABOLIC [facility] COLLECTIO 28777 JESSICAANGELA LOPEZWVIE N VENOUS 0 W W BLOOD [facility] VENIPUNCT [facility] CENTER BLOOD 91462 MEADOWVIE MEADOWVIE COUNT 0 W W [facility] [place] [address] ONCOLOGY JAJA, INFUSION 0 HEMATOLOG BRITTANY M HYDRATION Y CARE INITIAL INC 31 MIN-1 HOUR BLOOD 47011 [facility]E COUNT 0 CO [facility] AUTO&AUTO DIFRNTL WBC COMPREHEN 70984 KUSH CURRIE SIVE 0 CO [facility] PANEL RADEX 28193 [facility] SPINE 0 EIDER, LUMBOSACR RADIOLOGY NANDINI AL 2/3 K VIEWS ASSOCIATE S PSC SBSQ 41179 [facility] 0 CLINIC CHAMP CARE/DAY PSC 15 MINUTES RADIOLOGI 64936 EMILIANOBarbara GALO EXAM 0 CECI C CHEST 2 RADIOLOGY VIEWS FRONTAL&L ASSOCIATE ATERAL S PSC OBSERVATI 70682 [facility] ON CARE 0 , MINOR , MINOR DISCHARGE MANAGEMEN T INITIAL 44153 [facility] GR OBSERVATI 0 , MINOR , MINOR ON CARE/DAY 70 MINUTES HOSPITAL G0378 JESSIE ROMAN OBSERVATI 0 CO CO ON HOSPITAL HOSPITAL SERVICE PER HOUR RADEX 15502 CHANHASSEN WELDON, ABDOMEN 1 0 CECI Jimenez RADIOLOGY ANTEROPOS TERIOR ASSOCIATE VIEW S PSC RADEX ABD 85650 JESSIE ROMAN COMPL 0 CO CO AQT ABD [facility] W/S/E/D VIEWS 1 VIEW CH COLLECTIO 71508 JESSIE ROMAN N VENOUS 0 CO CO BLOOD [facility] VENIPUNCT URE RADIOLOGI 51599 CHANHASSEN SHIRAZ, C 0 CECI Jimenez EXAMINATI RADIOLOGY ON CHEST SINGLE ASSOCIATE VIEW S PSC FRONTAL COMPREHEN 37533 JESSIE ROMAN SIVE 0 CO CO METABOLIC [facility] PANEL BLOOD 88510 JESSIE ROMAN COUNT 0 CO CO COMPLETE [facility] AUTO&AUTO DIFRNTL WBC BLOOD 94468 JESSIE ROMAN COUNT 0 CO CO SMEAR [facility] MCRSCP W/MNL DIFRNTL WBC COUNT THROMBOPL 89187 JESSIE ROMAN ASTIN 0 CO CO TIME [facility] PARTIAL PLASMA/WH OLE BLOOD PROTHROMB 74969 JESSIE ROMAN IN TIME 0 CO [place] [facility] [place] [address] JESSIE ROMAN INFUSION 0 CO CO THERAPY/P HOSPITAL [facility] ROPHYLAXI S /DX 1ST TO 1 HR THER 60185 JESSIE ROMAN PROPH/DX 0 CO CO NJX IV [facility] PUSH SINGLE/1S T SBST/[place] [address] JESSIE ROMAN INFUSION 0 CO CO HYDRATION [facility] INITIAL 31 MIN-1 HOUR RADJ DLVR 44637 [place] I[place] 3/> 0 MEDICAL PRA AREAS SERV CUSTOM FOUNDATIO BLKING 6-10MEV RADJ DLVR 04963 [place] 3/> 0 MEDICAL PRA AREAS SERV CUSTOM FOUNDATIO BLKING 6-10MEV RADIATION 60605 [place] INA 0 MEDICAL PRA TREATMENT SERV FOUNDATIO MANAGEMEN T 5 TREATMENT S RADJ DLVR 37107 [place] 3/> 0 MEDICAL PRA AREAS SERV CUSTOM FOUNDATIO BLKING 6-10MEV RADJ DLVR 62258 [place] 3/> 0 MEDICAL PRA AREAS SERV CUSTOM FOUNDATIO BLKING 6-10MEV THERAPEUT 20633 [place] IC 0 MEDICAL PRA RADIOLOGY SERV PORT FOUNDATIO IMAGES(S) RADIATION 32140 [place] I[place] 0 MEDICAL PRA TREATMENT SERV FOUNDATIO MANAGEMEN T 5 TREATMENT S COMPREHEN 99569 NIKITA LOPEZWALFONSO SIVE 0 W W METABOLIC [facility] COLLECTIO 93252 JESSICAANGELA LOPEZWVIE N VENOUS 0 W W BLOOD [facility] CONTINUIN 90504 [place] G MEDICAL 0 MEDICAL PRA PHYSICS SERV CONSLTJ FOUNDATIO ID WK THERAPEUT 49598 ONCOLOGY JAJA CHR IC 0 HEMATOLOG INJECTION Y [place] [address] ONCOLOGY JAJA CHR INFUSION 0 HEMATOLOG THER Y CARE IN PROPH ADDL SEQUENTIA L [place] [address] ONCOLOGY JAJA CHR INFUSION 0 HEMATOLOG HYDRATION Y CARE IN EACH ADDITIONA L HOUR BLOOD 30021 NIKITA SHELTON COUNT 0 W W COMPLETE [facility] INJECTION J2469 ONCOLOGY ONCOLOGY 0 HEMATOLOG HEMATOLOG [place] Y CARE IN Y CARE IN OCTAVIANO HCL 25 MCG INJECTION J9060 ONCOLOGY JAJA CHR 0 HEMATOLOG CISPLATIN Y CARE IN POWDER OR SOLUTION 10 MG CHEMOTX 20641 ONCOLOGY JAJA CHR ADMN IV 0 HEMATOLOG NFS TQ UP Y CARE IN 1 HR SBST/DRUG RADJ DLVR 34477 [place] I[place] 3/> 0 MEDICAL PRA AREAS SERV CUSTOM FOUNDATIO BLKING 6-10MEV RADJ DLVR 80182 [place] 3/> 0 MEDICAL PRA AREAS SERV CUSTOM FOUNDATIO BLKING 6-10MEV CONTINUIN 82428 [place] G MEDICAL 0 MEDICAL PRA PHYSICS SERV CONSLTJ FOUNDATIO ID WK RADJ DLVR 27922 [place] 3/> 0 MEDICAL PRA AREAS SERV CUSTOM FOUNDATIO BLKING 6-10MEV RADJ DLVR 29028 [place] 3/> 0 MEDICAL PRA AREAS SERV CUSTOM FOUNDATIO BLKING 6-10MEV RADJ DLVR 89839 [place] 3/> 0 MEDICAL PRA AREAS SERV CUSTOM FOUNDATIO BLKING 6-10MEV RADIATION 02163 [place] INA 0 MEDICAL PRA TREATMENT SERV FOUNDATIO MANAGEMEN T 5 TREATMENT S RADJ DLVR 81358 [place] 3/> 0 MEDICAL PRA AREAS SERV CUSTOM FOUNDATIO BLKING 6-10MEV GENERAL 41370 [facility] 0 [facility] INC PANEL LIPID 43703 [facility] PANEL 0 [facility] INC RADJ DLVR 18135 [place] 3/> 0 MEDICAL PRA AREAS SERV CUSTOM FOUNDATIO BLKING 6-10MEV BASIC 11143 [place] RADIATION 0 MEDICAL PRA SERV DOSIMETRY FOUNDATIO CALCULATI ON TELETHERA 75575 [place] PY 0 MEDICAL PRA ISODOSE SERV PLAN FOUNDATIO COMPLETE THER RAD 16054 [place] SIMULAJ-A 0 MEDICAL PRA IDED SERV FIELD FOUNDATIO SETTING SIMPLE CONTINUIN 81423 [place] G MEDICAL 0 MEDICAL PRA PH[place]ICS [place] [address] [place] DEVICES 0 MEDICAL PRA DESIGN & SERV CONSTRUCT FOUNDATIO ION COMPLEX RADJ DLVR 75158 [place] 3/> 0 MEDICAL PRA AREAS SERV CUSTOM FOUNDATIO BLKING 6-10MEV RADIATION 08125 [place] I[place] 0 MEDICAL PRA TREATMENT SERV FOUNDATIO MANAGEMEN T 5 TREATMENT S RADJ DLVR 81510 [place] ZHANE, 3/> 0 MEDICAL DAVID AREAS SERV CUSTOM FOUNDATIO BLKING 6-10MEV RADJ DLVR 13818 [place] ZHANE, 3/> 0 MEDICAL DAVID AREAS SERV CUSTOM FOUNDATIO BLKING 6-10MEV CONTINUIN 97161 [place] G MEDICAL 0 MEDICAL PRA PHYSICS SERV CONSLTJ FOUNDATIO ID WK RADJ DLVR 44790 [place] 3/> 0 MEDICAL PRA AREAS SERV CUSTOM FOUNDATIO BLKING 6-10MEV RADIATION 17362 [place] INA 0 MEDICAL PRA TREATMENT SERV FOUNDATIO MANAGEMEN T 5 TREATMENT S RADJ DLVR 44305 [place] 3/> 0 MEDICAL PRA AREAS SERV CUSTOM FOUNDATIO BLKING 6-10MEV COMPREHEN 96497 MEADOWVIE MEADOWVIE SIVE 0 W W [facility] CENTER BASIC 83494 [place] RADIATION 0 MEDICAL PRA SERV DOSIMETRY FOUNDATIO CALCULATI ON TELETHERA 29343 [place] PY 0 MEDICAL PRA ISODOSE SERV PLAN FOUNDATIO COMPLETE COLLECTIO 22885 MEADALIAALFONSO LOPEZWVIE N VENOUS 0 W W BLOOD [facility] BLOOD 35709 MEADOWVIE MEADOWVIE COUNT 0 W W COMPLETE [facility] RADJ DLVR 06181 [place] I[place] 3/> 0 MEDICAL PRA AREAS SERV CUSTOM FOUNDATIO BLKING 6-10MEV RADJ DLVR 97551 [place] 3/> 0 MEDICAL PRA AREAS SERV CUSTOM FOUNDATIO BLKING 6-10MEV LARYNGOSC 39789 [place] OPY 0 MEDICAL , HANNAH FLEXIBLE SERV DIAGNOSTI FOUNDATIO C RADJ DLVR 34034 [place] 3/> 0 MEDICAL PRA AREAS SERV CUSTOM FOUNDATIO BLKING 6-10MEV RADJ DLVR 45976 [place] 3/> 0 MEDICAL PRA AREAS SERV CUSTOM FOUNDATIO BLKING 6-10MEV THERAPEUT 47021 [place] IC 0 MEDICAL PRA RADIOLOGY SERV PORT FOUNDATIO IMAGES(S) CONTINUIN 15398 [place] G MEDICAL 0 MEDICAL PRA PHYSICS SERV CONSLTJ FOUNDATIO ID WK RADJ DLVR 35136 [place] 3/> 0 MEDICAL PRA AREAS SERV CUSTOM FOUNDATIO BLKING 6-10MEV RADIATION 01913 [place] I[place] 0 MEDICAL PRA TREATMENT SERV FOUNDATIO MANAGEMEN T 5 TREATMENT S RADJ DLVR 15153 [place] 3/> 0 MEDICAL PRA AREAS SERV CUSTOM FOUNDATIO BLKING 6-10MEV RADJ DLVR 47505 [place] 3/> 0 MEDICAL PRA AREAS SERV CUSTOM FOUNDATIO BLKING 6-10MEV RADJ DLVR 50889 [place] 3/> 0 MEDICAL PRA AREAS SERV CUSTOM FOUNDATIO BLKING 6-10MEV RADJ DLVR 42107 [place] I[place] 3/> 0 MEDICAL PRA AREAS SERV CUSTOM FOUNDATIO BLKING 6-10MEV THERAPEUT 49157 [place] IC 0 MEDICAL PRA RADIOLOGY SERV PORT FOUNDATIO IMAGES(S) CONTINUIN 50359 [place] G MEDICAL 0 MEDICAL PRA PHYSICS SERV CONSLTJ FOUNDATIO ID WK RADIATION 15941 [place] INA 0 MEDICAL PRA TREATMENT SERV FOUNDATIO MANAGEMEN T 5 TREATMENT S RADJ DLVR 45409 [place] 3/> 0 MEDICAL PRA AREAS SERV CUSTOM FOUNDATIO BLKING 6-10MEV RADJ DLVR 37115 [place] 3/> 0 MEDICAL PRA AREAS SERV CUSTOM FOUNDATIO BLKING 6-10MEV RADJ DLVR 44109 [place] 3/> 0 MEDICAL PRA AREAS SERV CUSTOM FOUNDATIO BLKING 6-10MEV RADJ DLVR 65023 [place] 3/> 0 MEDICAL PRA AREAS SERV CUSTOM FOUNDATIO BLKING 6-10MEV RADJ DLVR 35264 [place] 3/> 0 MEDICAL PRA AREAS SERV CUSTOM FOUNDATIO BLKING 6-10ME[place] [address] [place] DEVICES 0 MEDICAL PRA DESIGN & SERV CONSTRUCT FOUNDATIO ION COMPLEX THER RAD 40931 [place] SIMULAJ-A 0 MEDICAL PRA IDED SERV FIELD FOUNDATIO SETTING SIMPLE RADIATION 59080 [place] 0 MEDICAL PRA TREATMENT SERV FOUNDATIO [place]GEMEN T [address] [place] [address] [place] MOJGAN GUIDANCE 0 MEDICAL EDU RADIATION SERV THERAPY FOUNDATIO FLDS PLACEMENT CONTINUIN 75926 [place] G MEDICAL 0 MEDICAL PRA PHYSICS SERV CONSLTJ FOUNDATIO ID WK ANES 67392 [place] VITAL STEVIE ESOPH 0 MEDICAL THYRD SERVICES LARYNX TRACH & LYMPH NECK 1YR LARYNGOSC 88041 [place] OPY 0 MEDICAL CECILIA W/BIOPSY SERV MICROSCOP FOUNDATIO E/TELESCO PE EGD 82467 [place] CHRISTINA PERCUTANE 0 MEDICAL RICH OUS SERV PLACEMENT [place] [address] [place] HDZ SURG 0 MEDICAL VARGAS PATHOLOGY SERV FOUNDATIO GROSS&KAMILA ROSCOPIC EXAM L HRT 53083 [place] LINO CATHETERI 0 MEDICAL CALEB ZATION SERV RETROGRAD FOUNDATIO E BRACHIAL PERQ INJECTION 93152 [place] CARDIAC 0 MEDICAL CALEB CATHJ L SERV VENTR/L [place] [address] [place] C-CATHJ 0 MEDICAL CALEB F/SLCTV C SERV ANGRPH FOUNDATIO I SI&R 19129 [place] F/NJX PX 0 MEDICAL CALEB DURING SERV C-CATHJ FOUNDATIO VENTR&/AT R ANGRPH I SI&R 26567 [place] F/NJX PX 0 MEDICAL CALEB DURING SERV C-CATHJ FOUNDATIO PULM&/OR SELECT ECG 56619 UNIVERS UNIVERS ROUTINE 0 Y Y ECG HOSPITAL HOSPITAL W/LEAST 12 LDS TRCG ONLY W/O I&R ECG 36322 [place] MOJICA ROUTINE 0 MEDICAL NAN ECG SERV W/LEAST FOUNDATIO 12 LDS I&R ONLY CT SOFT 72933 [place] AMATO TISSUE 0 MEDICAL JONATAN NECK SERV W/CONTRAS FOUNDATIO T MATERIAL CT THORAX 06264 [place] ATTILI 0 MEDICAL ANI W/CONTRAS SERV T FOUNDATIO MATERIAL COLLECTIO [address] [facility] N VENOUS 0 Y Y BLOOD [facility] VENIPUNCT URE COMPREHEN [address] [facility] SIVE 0 Y Y METABOLIC [facility] PANEL BLOOD [address] [facility] COUNT 0 Y Y COMPLETE [facility] AUTOMATED PROTHROMB [address] [facility] IN TIME 0 Y Y [facility] THROMBOPL [address] [facility] ASTIN 0 Y Y TIME [facility] PARTIAL PLASMA[place] [address] [facility] FREE 0 Y Y THYROXINE [facility] [place] [address] 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 EQUIP. CONC AT [facility] FLW RATE O2 CONC 1 E1390 [facility] 8 HOME MED HOME MED 85%/>02 EQUIP. EQUIP. CONC AT [facility] FLW RATE O2 CONC 1 E1390 [facility] 8 HOME MED HOME MED 85%/>02 EQUIP. EQUIP. CONC AT [facility] FLW RATE LIPID 63342 [facility] PANEL 8 [facility] CYANOCOBA 65872 [facility] JENNY 8 [facility] VITAMIN B-12 COMPREHEN 35346 [facility] SIVE 8 [facility] [place] [address] [facility] THYROID 8 [facility] STIMULATI NG HORMONE TSH THER 02674 JESSIE ROMAN PROPH/DX 8 CO CO NJX [facility] SUBQ/IM ECG 39223 JESSIE ROMAN ROUTINE 8 [place] ECG [facility] W/LEAST 12 LDS TRCG ONLY W/O I&R DEMO&/VINICIO 44877 JESSIE ROMAN L OF PT 8 [place] UTILIZ [facility] AERSL GEN/NEB/I NHLR/[place] [address] JESSIE ROMAN WALL 8 [facility] FACILITAT [facility] E LNG FUNCJ 1 DEMO&/VINICIO L O2 CONC 1 E1390 [facility] PORT 8 HOME MED HOME MED 85%/>02 EQUIP. EQUIP. CONC AT Where [facility] FLW RATE ADMN SET A7005 YOUR YOUR W/SM VOL 8 PHARMACY [facility]ARM[facility] NEBULIZR NON-DISPB L O2 CONC 1 E1390 [facility] PORT 8 HOME MED HOME MED 85%/>02 EQUIP. EQUIP. CONC AT Where [facility] FLW RATE ADMN SET A7003 YOUR YOUR SM VOL 8 PHARMACY PHARMACY NONFILTR [facility] PNEUMAT NEBULIZR DISPBL O2 CONC 1 E1390 [facility] PORT 8 HOME MED HOME MED 85%/>02 EQUIP. EQUIP. CONC AT [facility] PRS FLW RATE Encounters Encounter Start End Date Code Location Performer Type Date OFFICE 18902 [facility] OUTPATIEN 7 7 PHYSICIAN T VISIT S GROUP 15 MINUTES HOSPITAL [facility] - 7 7 [facility] EMERGENC[facility] 89450 [place] [facility] 7 7 [facility] HIGH SEVERITY& THREAT [facility] [place] - [address] [facility] - 7 7 [facility] - 7 7 [facility]PATIEN [facility] [address] INPATIENT HOSPITAL [place] - 7 7 [facility] EMERGENCY 57181 [facility] 7 DESIRE VISIT EMERGENCY HIGH PHYS SEVERITY& THREAT [facility] [place] - 7 7 [facility] [place] [facility] 7 7 [facility] 7 7 [facility] OUTPATIEN [facility] T OFFICE 03054 [facility] 7 7 PHYSICIAN T VISIT S GROUP 15 MINUTES OFFICE 52837 [facility] 7 7 [facility] T [facility]ISIT INC 10 MINUTES [facility]OSP[facility] - 7 7 [facility] OUTPATIEN [facility] T OFFICE 77340 [facility] 7 7 MD SUNNY, T VISIT PSC 15 MINUTES [facility]OSP[facility] - 7 7 [facility] 66775 [facility] 7 7 PHYSICIAN T VISIT S GROUP 15 MINUTES HOSPITAL [place] - [address] [facility] T EMERGENCY [address] T VISIT HIGH/URGE NT SEVERITY EMERGENCY 75314 [facility] DESIRE VISIT EMERGENCY HIGH PHYS SEVERITY& THREAT [facility] [place] [address] [facility] T EMERGENCY [address] HOSPITAL T VISIT HIGH/URGE NT SEVERITY [facility] - 7 7 [facility] OUTPATIEN INC T OFFICE 64238 [facility] OUTPATIEN 7 7 PHYSICIAN T VISIT S GROUP 15 MINUTES [facility]OSPITAL [facility] - 7 7 [facility] OUTPATI[facility] INC T OFFICE 43324 [facility] OUTPATIEN 7 7 PHYSICIAN T VISIT S GROUP 25 MINUTES [facility]OSPITAL [facility] - 7 7 [facility] OUTPATIEN INC T [facility] - 7 7 [facility] OUTPATIEN INC T OFFICE 23871 [facility] 7 7 [facility] T VISIT INC 10 MINUTES OFFICE 76931 [facility] OUTPATIEN 7 7 PHYSICIAN T VISIT S GROUP 25 MINUTES [facility]OSP[facility] - 7 7 [facility] OUTPATIEN INC T [facility] - 7 7 [facility] OUTPATI[facility] INC T OFFICE 55347 [facility] 7 7 [facility] T VISIT INC 10 MINUTES OFFICE 99207 [facility] 7 7 MD SUNNY, T VISIT PSC 15 MINUTES [facility] - 6 6 [facility] OUTPATIEN INC T OFFICE 01469 [facility] OUTPATIEN 6 6 PHYSICIAN T VISIT S GROUP 15 MINUTES OFFICE 43287 [facility] OUTPATIEN 6 6 PHYSICIAN KAMILA T VISIT S GROUP 15 MINUTES [facility]OSP[facility] - 6 6 [facility] OUTPATIEN INC T OFFICE 30852 ALONDRA KOEHLER OUTPATIMOJGAN 6 6 MD T VISIT 10 MINUTES [facility] - 6 6 [facility]PAT[facility] INC T [facility] - 6 6 [facility] OUTPATIEN [facility] T OFFICE 76113 [facility] OUTPATIEN 6 6 PHYSICIAN KAMILA T VISIT S GROUP 25 MINUTES OFFICE 44338 [facility] OUTPAT[facility] 6 6 PHYSICIAN [facility] T VISIT S GROUP 15 MINUTES [facility] 6 6 [facility]21 [facility] 6 [facility] T [address] [place] - [address] [facility] T OFFICE 94286 [facility] 6 6 PHYSICIAN KAMILA T VISIT S GROUP 15 MINUTES OFFICE 69034 [facility] 6 6 Y MEDICAL MU T VISIT CLINIC 15 [facility] 6 6 [facility] 25885 [facility] 6 6 [facility] HIGH [facility]VERITY& THREAT [facility] CURRIE - [address] [facility] T OFFICE 10575 [facility] PHYSICIAN KAMILA T VISIT S GROUP 15 MINUTES [facility] - 6 6 [facility] [address] [facility] T OFFICE 18123 [facility] 6 6 Y T [facility]ISIT 5 HOSPITAL [facility] UNIVERSIT - 6 6 [facility] - 6 6 [facility] [place] [facility] 6 [facility] 6 [facility] INC [facility] 6 6 [facility] T OFFICE 90857 [facility] OUTPATIEN 6 6 PHYSICIAN KAMILA T [facility]ISIT S GROUP 15 MINUT[facility] HOME [facility], 6 6 MEDICAL INPATIENT [facility] OFFICE [address] [facility] 6 6 PHYSICIAN KAMILA T VISIT S GROUP 15 MINUT[facility] HOME [facility], 6 6 [facility] INPATIENT [facility] UNIVERSIT - 6 6 Y [facility] T OFFICE 11593 [facility] 6 6 Y T [facility]ISIT 5 [facility] UNIVERSIT [facility] 6 6 Y [facility] T OFFICE 11650 [facility] 6 6 Y T VISIT 5 [facility] OFFICE 80644 [facility] 6 6 PHYSICIAN KAMILA T [facility]ISIT S GROUP 15 MINUTES [facility] - 6 6 [facility] HOME [facility] 6 6 MEDICAL INPATIENT CENTER [facility] EMERGENCY 75661 DALILA SINGH DEPT 6 6 PHYSICIAN KAMILA VISIT S, PLL[facility] HIGH SEVERITY& THREAT FUN EMERGENCY 65775 [facility] DEPT 6 6 DESIRE NGOZI VISIT EMERGENCY HIGH PHYS SEVERITY& THREAT [facility] - 6 6 [facility] T OFFICE [address] [facility] 6 6 PHYSICIAN KAM[facility]A T [facility]ISIT S GROUP 15 MINUTES EMERGENCY 34550 [facility] 6 6 DESIRE DEPARTMEN EMERGENCY T VISIT PHYS MODERATE SEVERITY [facility] - 6 6 [facility] T OFFICE 44889 [facility] OUT[facility] 6 6 PHYSICIAN [facility] T VISIT S GROUP 15 MINUTES [facility] - 6 6 [facility] T OFFICE [address] [facility] 6 6 PHYSICIAN [facility] T VISIT S GROUP 15 MINUTES [facility] - 6 6 [facility] T OFFICE [address] [facility] 5 5 PHYSICIAN [facility] T VISIT S GROUP 10 MINUTES OFFICE 63639 [facility] MANZANARES OUTPATIEN 5 5 Y [facility] 15 MINUTES OFFICE 11055 [facility] BRITANY OUTPATIEN 5 5 CULAR MAT T VISIT CONSULTAN 25 TS O MINUTES [facility] - 5 5 [facility] T OFFICE [address] [facility] 5 5 PHYSICIAN [facility]A T VISIT S GROUP 15 MINUTES OFFICE 18800 [facility] MINAYAEMILI OUTPATIEN 5 5 [facility] 15 MINUTES [facility]E - 5 5 [facility] 98153 [facility] DESIRE MAR VISIT EMERGENCY HIGH PHYS SEVERITY& THREAT FUN OFFICE 85485 [facility] OUTPATIEN 5 5 PHYSICIAN KAMILA T VISIT S GROUP 10 MINUTES HOSPITAL [facility] - 5 [facility] T OFFICE 07225 CARDIOVAS BRITANY OUTPATIEN 5 5 CULAR MAT T VISIT CONSULTAN 25 TS O MINUTES [facility] GOMEZ - 5 5 [facility] GOME[facility] - 5 5 [facility] T OFFICE 29140 CARDIOVAS BRITANY OUTPATIEN 5 5 CULAR MAT T VISIT CONSULTAN 40 TS O MINUTES OFFICE 74280 [facility] FRANCISCO OUTPATIEN 5 5 PHYSICIAN KAMILA T VISIT S GROUP 15 MINUTES HOSPITAL GOMEZ - 5 5 [facility] T OFFICE 61211 CARDIOVAS BRITANY OUTPATIEN 5 5 CULAR MAT T VISIT CONSULTAN 25 TS O MINUTES [facility]OSPITAL [facility]OME[facility] - 5 5 [facility] 5 5 [facility]EN [facility] T OFFICE 07392 [facility] OUTPATIEN 5 5 PHYSICIAN KAMILA T VISIT S GROUP 10 MINUTES [facility] GOMEZ - 5 5 [facility] T OFFICE 43602 CARDIOVAS BRITANY OUTPATIEN 5 5 CULAR MAT T VISIT CONSULTAN 40 TS O MINUTES OFFICE 37052 [facility] OUTPATIEN 5 5 PHYSICIAN KAMILA T VISIT S GROUP 15 MINUTES OFFICE 73700 CARDIOVAS BRITANY OUTPATIEN 5 5 CULAR MAT T VISIT CONSULTAN 25 TS O MINUTES [facility] GOMEZ - 5 5 [facility] T OFFICE 94686 [facility] OUTPATI[facility] 5 5 PHYSICIAN KAMILA T VISIT S GROUP 15 MINUTES EMERGENCY 21634 MEADOWVIE DEPT 5 5 W VISIT [facility] HIGH MEDICAL SEVERITY& THREAT [facility] MEADOWVIE - 5 5 W OUTPATIEN [facility] T MEDICAL OFFICE 66505 [facility] OUTPATIEN 5 5 PHYSICIAN KAMILA T VISIT S GROUP 15 MINUTES OFFICE 50025 [facility] ALESHIAAM[facility]AD[facility] OUTPATIEN 5 5 [facility] T NEW 45 MEDICAL MINUTES [facility] - 5 5 HOSPITAL INPATIENT OFFICE 35434 [facility] OUTPATIEN 5 5 PHYSICIAN KAMILA T VISIT S GROUP 15 MINUTES OFFICE 70301 [facility] OUTPATIEN 5 5 PHYSICIAN KAMILA T VISIT S GROUP 15 MINUTES HOSPITAL MEADOWVIE [facility] [address] [facility] T MEDICAL OFFICE 67621 CARDIOVAS BLACK JAZZMINE OUTPATIEN 5 5 CULAR T NEW 60 CONSULTAN MINUTES TS [facility] OTHER [address] [facility] - 5 5 [facility] 26126 [facility] OUTPATIEN 5 5 PHYSICIAN KAMILA T VISIT S GROUP 15 MINUTES OFFICE 12895 [facility] OUTPATIEN 5 5 PHYSICIAN KAMILA T VISIT S GROUP 25 MINUTES HOSPITAL CURRIE - 5 5 [facility] T EMERGENCY 29989 [facility] 5 5 [facility] EMERGENCY T VISIT PHYS HIGH/URGE NT SEVERITY EMERGENCY 16757 CURRIE 5 5 CO [facility] HOSPITAL T VISIT MODERATE SEVERITY OFFICE 83519 [facility] OUTPATIEN 5 5 PHYSICIAN KAMILA T NEW 20 S GROUP MINUTES OFFICE 46754 [facility] VA[facility]AV OUTPATIEN 5 5 CLINIC HEN T VISIT 15 MINUTES OFFICE 80553 [facility] OUTPATIEN 5 5 Y T VISIT HOSPITAL 10 MINUTES OFFICE 03722 TIFFANIE BONDSANTOSH OUTPATIEN 5 5 MEDICAL CECILIA T VISIT SERV 15 FOUNDATIO MINUTES HOSPITAL UNIVERSIT - 5 5 Y [facility] T OFFICE 61847 [facility] VA[facility]HAV OUTPATIEN 4 4 CLINIC HEN T VISIT 15 MINUTES OFFICE 20464 [facility] OUTPATIEN 4 4 CLINIC HEN T VISIT 15 MINUTES OFFICE 33257 [facility] OUTPATIEN 4 4 Y T VISIT HOSPITAL 10 MINUTES HOSPITAL UNIVERSIT - 4 4 Y OUTPATIEN HOSPITAL T OFFICE 26694 [facility] SANTOSH OUTPATIEN 4 4 CECILIA CECILIA T VISIT 15 MINUTES OFFICE 30142 [facility] KIRK OUTPATIEN 4 4 CLINIC NHI T VISIT 25 MINUTES OFFICE 35419 [facility] VAIBHAV OUTPATIEN 4 4 CLINIC HEN T VISIT 15 MINUTES OFFICE 95520 [facility] OUTPATIEN 4 4 CLINIC T VISIT 25 MINUTES OFFICE 95637 [facility] HUTCHINS- OUTPATIEN 4 4 CLINIC SE YOSVANY T VISIT 25 MINUTES OFFICE 54798 [facility] OUTPATIEN 4 4 CECILIA CECILIA T VISIT 15 MINUTES HOSPITAL [facility], - 3 3 [facility] 24563 [facility] SANTOSH OUTPATIEN 3 3 CECILIA CECILIA T VISIT 25 MINUTES OFFICE 28349 TAMARETrever ARAGON OUTPATIEN 3 3 Apr T VISIT 25 MINUTES OFFICE 37689 TAMAREN NABEELN OUTPATIEN 3 3 Apr T VISIT 25 MINUTES OFFICE 90105 TAMAREN DEBORAHAREN OUTPATIEN 3 3 Apr T VISIT 25 MINUTES OFFICE 19729 UN[facility]IT OUTPATIEN 3 3 Y T VISIT HOSPITAL 25 MINUTES OFFICE 69846 [facility] OUTPATIEN 3 3 CECILIA CECILIA T VISIT 15 MINUTES HOSPITAL [facility]ERS[facility] 3 [facility] 55371 DEBORAHARETrever LEESN OUTPATIEN 2 2 Apr T VISIT 25 MINUTES OFFICE 08186 [facility] BERNABEO OUTPATIEN 2 2 CECILIA CECILIA T VISIT 15 MINUTES OFFICE 49602 [facility]GO LEESTrever OUTPATIEN 2 2 Apr T VISIT 25 MINUTES OFFICE 76320 [facility] LEESTrever OUTPATIEN 2 2 Apr T VISIT 15 MINUTES HOSPITAL [facility] INC, - 2 2 [facility] - 2 2 Y [facility] T OFFICE 06951 NABEELTrever DEBORAHSTIVEN OUTPATIEN 2 2 Apr T VISIT 15 MINUTES OFFICE 95035 [facility] LEESTrever OUTPATIEN 2 2 Apr T VISIT 25 MINUTES HOSPITAL UNIVERSIT - 2 2 Y [facility] T OFFICE 63105 [facility] BERNABEO OUTPATIEN 2 2 CECILIA CECILIA T VISIT 15 MINUTES HOSPITAL [facility], - 2 2 [facility] - 2 2 [facility] 26581 MARGO LEESTrever OUTPATIEN 2 2 Apr T VISIT 25 MINUTES OFFICE 98166 [facility] LEESTrever OUTPATIEN 2 2 Apr T VISIT 15 MINUTES HOSPITAL UNIVERSIT - 2 2 Y [facility] T OFFICE 79293 JHONATHAN SNYDER OUTPATIEN 2 2 T VISIT 15 MINUTES OFFICE 84667 NABEELTrever DEBORAHSTIVEN OUTPATIEN 2 2 Apr T VISIT 25 MINUTES HOSPITAL JESSIE - 2 2 CO [facility] T OFFICE 53366 NABEELTrever ARAGON OUTPATIEN 1 1 CECILIA CECILIA T VISIT 25 MINUTES HOSPITAL UNIVERSIT - 1 1 Y [facility] T OFFICE 04153 [facility] RFOST OUTPATIEN 1 1 CECILIA CECILIA T VISIT 15 MINUTES OFFICE 45000 [facility] 1 GRE GRE T NEW 45 [facility] JESSIE - 1 1 [facility] T OFFICE 38801 MARGO ARAGON OUTPATIEN 1 1 CECILIA CECILIA T VISIT 15 MINUTES OFFICE 54541 [facility] LEESTrever OUTPATIEN 1 1 CLINIC CECILIA T VISIT PSC 25 MINUTES [facility] JESSIE - 1 1 [facility] T OFFICE 35654 TIFFANIE [facility] 1 1 MEDICAL CECILIA T VISIT SERV 15 [facility] UNIVERSIT - 1 1 Y [facility] T OFFICE 24378 ALLRAN JR ALLRAN JR CONSULTAT 1 1 CALEB CALEB ION NEW/ESTAB PATIENT 40 MIN OFFICE 11463 [facility]ON OUTPATIEN 1 1 CLINIC CECILIA T VISIT PSC 15 MINUTES OFFICE 14634 [facility] LEESTrever OUTPATIEN 1 1 CLINIC CECILIA T VISIT PSC 25 MINUTES HOSPITAL SERGIOWVIE - 1 1 W [facility] MEDICAL OFFICE 70409 ONCOLOGY JAJA CHR OUTPATIEN 1 1 HEMATOLOG T VISIT Y CARE IN 25 MINUTES OFFICE 54714 [place] QUOC [place]UM[place] OUTPATIEN 1 1 MEDICAL T VISIT SERV 25 [facility] JESSICAWVIE - 1 1 W [facility] MEDICAL OFFICE 44466 ONCOLOGY SIGMUND OUTPATIEN 1 1 HEMATOLOG ADOLFO T VISIT Y CARE IN 15 MINUTES OFFICE 84754 [facility] OUTPATIEN 1 1 CLINIC CECILIA T VISIT PSC 15 MINUTES OFFICE 23724 [facility] OUTPATIEN 1 1 CLINIC CECILIA T VISIT PSC 25 MINUTES HOSPITAL JESSIE - 1 1 CO [facility] T OFFICE 58700 [facility] ARAGON OUTPATIEN 1 1 CLINIC CECILIA T VISIT PSC 15 MINUTES HOSPITAL UNIVERSIT - 1 1 Y [facility] T OFFICE 07425 [place] SANTOS[facility] OUTPATIEN 1 1 MEDICAL CECILIA T VISIT SERV 15 FOUNDATIO MINUTES OFFICE 50691 ONCOLOGY JAJA [facility] 1 1 HEMATOLOG T VISIT Y CARE IN 15 MINUTES HOSPITAL MEAWVIE - 1 1 W [facility] CURRIE - 1 1 [facility] T OFFICE 06357 RINALDINI RINALDINI OUTPATIEN 1 1 ETHAN ETHAN T VISIT 15 MINUTES OFFICE 01032 [place] [facility] 1 1 MEDICAL CECILIA T VISIT SERV 15 [facility] CURRIE - 1 1 [facility] MEADOWVIE - 0 0 W [facility] MEDICAL OFFICE 65425 RINALDINI RINALDINI OUTPATIEN 0 0 ETHAN ETHAN T VISIT 15 MINUTES HOSPITAL CURRIE - 0 0 [facility] CURRIE - 0 0 [facility] MEADOWVIE - 0 0 [facility] MEDICAL OFFICE 24209 [place] [facility] 0 0 MEDICAL PRA T VISIT SERV 10 [facility] CURRIE - 0 0 CO [facility] T OFFICE 61251 MAILE ESTRADAINI OUTPATIEN 0 0 ETHAN ETHAN T VISIT 15 MINUTES EMERGENCY 00389 JESSIE 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 T MEDICAL OFFICE 63387 MARKUSERROL ESTRADAINI [facility] ETHAN ETHAN T VISIT 25 MINUTES HOSPITAL JESSIE - 0 0 CO [facility] T EMERGENCY 16623 MARKUSERROL APARICIOALDINI 0 0 ETHAN ETHAN DEPARTMEN T VISIT MODERATE SEVERITY EMERGENCY 74381 JESSIE 0 0 CO [facility] HOSPITAL T VISIT LOW/MODER SEVERITY HOSPITAL UNIVERSIT - 0 0 Y [facility] T HOSPITAL UNIVERSIT - 0 0 Y [facility] T OFFICE [address] 0 0 MEDICAL CECILIA T VISIT SERV 15 FOUNDATIO MINUTES [facility] CURRIE - 0 0 CO [facility] T HOME [facility], 0 0 HOME [facility] T [facility] JESSIE - 0 0 CO [facility] T OFFICE 83012 [facility] T VISIT 5 HOSPITAL MINUTES OFFICE 08866 JESSIE OUTPATIEN 0 0 CO T VISIT 5 [facility] JESSIE - 0 0 CO [facility] T OFFICE 42486 JESSIE OUTPATIEN 0 0 CO T VISIT 5 [facility] JESSIE - 0 0 CO [facility] T EMERGENCY 02911 NATALIEINI RINALDINI 0 0 , ETHAN GAXIOLA M [facility] T VISIT HIGH/URGE NT SEVERITY EMERGENCY 38613 JESSIE 0 0 [facility] T VISIT LIMITED/M INOR PROB HOSPITAL JESSIE - 0 0 CO [facility] T OFFICE 07799 MAILE ESTRADAINI OUTPATIEN 0 0 , ETHAN GAXIOLA M T VISIT 10 MINUTES HOSPITAL MEADOWVIE - 0 0 W [facility] OFFICE 73299 ONCOLOGY JAJA, OUTPATIEN 0 0 HEMATOLOG BRITTANY M T VISIT Y CARE 15 [facility] CURRIE - 0 0 CO [facility] HOME [facility], 0 0 HOME [facility] JESSIE - 0 0 CO INPATIENT HOSPITAL EMERGENCY 54943 JESSIE 0 0 [facility] T VISIT LOW/MODER SEVERITY HOSPITAL JESSIE - 0 0 CO [facility] EMERGENCY 48417 JESSIE RINALDINI 0 0 CO , MINOR [facility] T VISIT LIMITED/M INOR PROB HOSPITAL JESSIE - 0 0 [facility] T OFFICE 26923 ONCOLOGY JAJA, OUTPATIEN 0 0 HEMATOLOG BRITTANY M T VISIT Y CARE 25 INC [facility] HOSPITAL MEADOWVIE - 0 0 W [facility] HOME [facility], 0 0 HOME [facility] T OFFICE 38053 RINALDINI RINALDINI OUTPATIEN 0 0 , MINOR , MINOR T VISIT 25 MINUTES OFFICE 54247 RINALDINI RINALDINI OUTPATIEN 0 0 , MINOR , MINOR T VISIT 15 MINUTES OFFICE 25871 [place] [facility] OUTPATIEN 0 0 MEDICAL , HANNAH T VISIT SERV 15 FOUNDATIO MINUTES OFFICE 75910 [facility] 0 , MINOR , MINOR T VISIT 15 MINUTES HOSPITAL MEADOWVIE - 0 0 W [facility] OFFICE 74436 [place] INA CONSULTAT 0 0 MEDICAL PRA ION SERV NEW/ESTAB FOUNDATIO PATIENT 30 MIN OFFICE 87568 [place] [facility] OUTPATIEN 0 0 MEDICAL CECILIA T VISIT SERV 25 FOUNDATIO MINUTES [facility] UNIVERSIT - 0 0 Y [facility] T OFFICE 14182 [place] [facility] CONSULTAT 0 0 MEDICAL CECILIA ION SERV NEW/ESTAB FOUNDATIO PATIENT 80 MIN HOSPITAL UNIVERSIT - 0 0 Y [facility] T OFFICE 06326 [facility] T VISIT 5 [facility] JESSIE - 8 8 CO [facility] T OFFICE 27669 [facility] 8 8 CO T VISIT 5 [facility] JESSIE - 8 8 CO [facility] JESSIE - 8 8 CO [facility] T OFFICE [address] [facility] 8 8 CO T VISIT 5 HOSPITAL MINUTES EMERGENCY 91238 JESSIE 8 8 CO [facility] T VISIT LIMITED/M INOR PROB [facility] JESSIE - 8 8 [facility] T OFFICE [address] [facility] 8 8 CLINIC CHAMP T NEW 20 PSC MINUTES [facility] JESSIE - 8 8 [facility] T OFFICE [address] [facility] 8 8 , ETHAN GAXIOLA T VISIT 5 MINUTES [facility] JESSIE - 8 8 [facility] T OFFICE [address] [facility] 8 8 , ETHAN GAXIOLA T VISIT 5 MINUTES OFFICE 00052 NATALIEINI [facility]INI [facility] , ETHAN GAXIOLA T VISIT 5 MINUTES OFFICE [address] [facility] 8 8 , ETHAN GAXIOLA T VISIT 5 MINUTES
--- OUTSIDE RECORDS SUMMARY | 2017-02-06 01:19 | External Medical Summary Rpt | CCD ---
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 [place] 00 09 09 0 24 5 SO [address] 60 -2 -2 0. PE 32 t ti AT 31 RS 70 Av ve IN 48 20 20 0 ai 15 10 10 FA la 10 8 DC bl 0, LY e [address] UN UG IT /M L GARCIA SP NE 00 09 09 1 30 30 SO 35 No Ac XI 18 -2 -2 .0 PE 32 t ti UM 65 RS 71 Av ve [address] 03 10 10 FA la 1 DC bl [address] UG CA PS UL E 00 09 09 0 23 26 SO 35 No Ac 12 -2 -2 65 PE 25 t ti 10 1- 1- .0 RS 91 Av ve 65 20 20 00 ai 51 10 10 FA la 6 DC bl LY e DR UG GARCIA 00 09 09 0 30 15 SO 35 No Ac LF 60 -2 -2 .0 PE 25 t ti AM 35 RS 92 Av ve ET 78 20 20 ai HO 12 10 10 FA la XA 8 DC bl ZO LY e LE -T DR MP UG DS TA BL ET LI 50 09 09 0 10 5 SO 35 No Ac DO 38 -2 -2 0. PE 25 t ti CA 30 1 RS 93 Av ve IN 77 20 20 0 ai E 50 10 10 FA la 2% 4 DC bl LY e SC DR OU UG S SO LN 00 08 09 5 12 30 SO 34 CO Ac 59 -0 -1 0. PE 89 ME ti 12 6 3 00 RS 35 R ve 22 20 20 0 BR 90 10 10 FA ET 5 DC T LY T DR UG PI 00 08 09 5 90 30 SO 34 CO Ac LO 11 -0 -1 .0 PE 89 ME ti CA 55 6- 3- 00 RS 36 R ve RP 92 20 20 BR IN 20 10 10 FA ET E 1 DC T HC LY T L 5 DR MG UG TA BL ET 00 08 08 0 30 3 SO 34 No Ac 12 -1 -1 0. PE 96 t ti 10 7- 7- 00 RS 80 Av ve 65 20 20 0 ai 51 10 10 FA la 6 DC bl LY e DR UG 00 08 08 5 12 30 SO 34 CO Ac 59 -0 -0 0. PE 89 ME ti 12 6- 6- 00 RS 35 R ve 22 20 20 0 BR 90 10 10 FA ET 5 DC T LY T DR UG PI 00 08 08 5 90 30 SO 34 CO Ac LO 11 -0 -0 .0 PE 89 ME ti CA 55 6- 6- 00 RS 36 R ve RP 92 20 20 BR IN 20 10 10 FA ET E 1 DC T HC LY T L 5 DR MG UG TA BL ET PE 00 07 08 1 59 1 SO 34 No Ac RM 47 -1 -0 .0 PE 73 t ti ET 25 9- 5- 00 RS 87 Av ve HR 24 20 20 ai IN 26 10 10 FA la 7 DC bl 1% LY e LO DR TI UG ON FL 00 08 08 0 5. 5 SO 34 No Ac UC 17 -0 -0 00 PE 87 t ti ON 25 5- 5- 0 RS 61 Av ve AZ 41 20 20 ai OL 21 10 10 FA la E 1 DC bl 15 LY e [address] UG TA BL ET MT 60 07 08 5 50 16 WA 74 MT Ac OM 43 -2 -0 0. L- 79 AB ti ET 20 7- 2- 00 MA 88 HU ve VEGA 60 20 20 0 RT 5 ZI 81 10 10 MT NE 6 PH AM AR OD 6. MA V 25 CY # MG /5 10 15 ML 69 SY RP AM 00 07 07 0 28 9 SO 34 No Ac OX 78 -2 -2 .0 PE 81 t ti -C 11 8- 8- 00 RS 22 Av ve LA 83 20 20 ai V 12 10 10 FA la 50 0 DC bl 0- LY e [address] MG UG TA BL ET MT 00 07 07 1 12 30 WA [...] IN 26 10 10 FA la 7 DC bl 1% LY e LO DR TI [...] 0 14 7 WA 74 SA Ac MT 37 -0 -0 .0 L- 77 PP [...] MA M CY # 10 15 69 MT 00 04 06 5 30 5 WA 74 SA Ac OC 78 -3 -2 .0 L- 66 PP ti HL 15 0- 5- 00 MA 40 ve OR 02 20 20 RT 8 CH PE 10 10 10 RI RA [address] ZI AR Y NE MA M CY 10 # MG 10 15 TA 69 B MT 00 06 06 1 30 30 WA [...] 06 06 3 14 14 WA 74 MT Ac UC 09 -1 -1 0. L- 73 AB ti ON 35 4- 4- 00 MA 39 HU ve AZ 41 20 20 0 RT 8 OL 49 10 10 MT E 5 PH AM 10 AR OD MA V MG CY /M # L GARCIA 10 SP 15 69 00 06 06 5 24 12 WA 74 MT Ac 09 -0 -0 0. L- 72 AB ti 39 7- 7- 00 MA 24 HU ve 63 20 20 0 RT 1 48 10 10 MT 7 PH AM AR OD MA V CY # 10 15 69 MT 00 04 06 5 30 5 WA [...] 06 06 5 40 30 WA 74 MT Ac LV 59 -0 -0 0. L- 71 AB ti ER 10 1- 2- 00 MA 39 HU ve 81 20 20 0 RT 7 GARCIA 04 10 10 MT LF 6 PH AM AD AR OD IA MA V ZI CY NE # 1% 10 15 CR 69 EA M GARCIA 00 08 08 00 20 10 SO 29 No Ac LF 60 -1 -2 .0 PE 05 t ti AM 35 2- 8- 00 RS 67 Av ve ET 78 20 20 ai HO 12 08 08 FA la XA 8 DC bl ZO LY e LE -T MP UG DS TA BL ET LI 00 10 08 01 30 30 SO 26 No Ac PI 07 -2 -2 .0 PE 59 t ti TO 10 9- 8- 00 RS 29 Av ve R 15 20 20 ai 40 72 07 08 FA la 3 DC bl MG LY e TA DR BL UG ET MT 37 07 08 01 56 28 SO 28 No Ac IL 00 -0 -2 .0 PE 78 t ti OS 00 7- 8- 00 RS 89 Av ve EC 45 20 20 ai 50 08 08 FA la OT 4 DC bl C LY e [address] MERYL MG TA BL ET 15 08 08 00 20 10 SO 29 No Ac 68 -2 -2 .0 PE 14 t ti 60 2- 8- 00 RS 39 Av ve 10 20 20 ai 20 08 08 FA la 5 DC bl LY e DR SHETH FL 60 08 08 00 16 7 SO 29 No Ac UT 50 -1 -2 .0 PE 08 t ti IC 50 4- 8- 00 RS 07 Av ve 82 20 20 ai ON 90 08 08 FA la E 1 DC bl MT LY e OP 50 UG MC G [...] ai 83 08 08 FA la 2 DC bl LY e UG 00 08 08 00 20 4 SO 29 No Ac 59 -1 -2 .0 PE 06 t ti 10 3- 8- 00 RS 85 Av ve 34 20 20 ai 90 08 08 FA la 5 DC bl LY e UG 00 08 08 00 80 10 SO 29 No Ac 78 -1 -2 .0 PE 06 t ti 12 3- 8- 00 RS 84 Av ve 11 20 20 ai 20 08 08 FA la 1 DC bl LY e UG 00 08 08 00 21 6 SO 29 No Ac 55 -1 -2 .0 PE 08 t ti 50 4- 8- 00 RS 08 Av ve 30 20 20 ai 13 08 08 FA la 8 DC bl LY e DR UG PE 45 07 08 00 60 1 SO 28 No Ac RM 80 -1 -0 .0 PE 86 t ti ET 20 6- 1- 00 RS 97 Av ve HR 26 20 20 ai IN 93 08 08 FA la 7 DC bl 5% LY e CR DR EA [...] 40 72 07 08 FA la 3 DC bl MG LY e TA DR BL UG ET MT 37 07 07 00 56 28 SO 28 No Ac IL 00 -0 -1 .0 PE 78 t ti OS 00 7- 7- 00 RS 89 Av ve EC 45 20 20 ai 50 08 08 FA la OT 4 DC bl C LY e [address] UG MG TA BL ET TH 50 04 07 03 60 30 SO 28 No Ac EO 11 -0 -1 .0 PE 10 t ti PH 10 8- 7- 00 RS 88 Av ve YL 48 20 20 ai LI 20 08 08 FA la NE 2 DC bl LY e ER DR 20 UG 0 MG TA BL ET AM 00 06 07 00 30 30 SO 28 No Ac IT 78 -2 -0 .0 PE 69 t ti RI 11 3- 3- 00 RS 84 Av ve PT 48 20 20 ai YL 71 08 08 FA la IN 0 DC bl E LY e HC L DR 25 UG MG TA B TR 65 06 07 00 90 30 SO 28 No Ac AM 16 -2 -0 .0 PE 69 t ti AD 20 3- 3- 00 RS 86 Av ve OL 62 20 20 ai 75 08 08 FA la HC 0 DC bl L LY e 50 DR MG [...] 40 72 08 08 FA la 3 DC bl MG LY e TA DR BL UG ET MT 37 03 06 02 56 28 SO 28 No Ac IL 00 -2 -1 .0 PE 02 t ti OS 00 7- 2- 00 RS 17 Av ve EC 35 20 20 ai 90 08 08 FA la OT 7 DC bl C LY e [address] UG MG TA BL ET TH 50 04 06 02 60 30 SO 28 No Ac EO 11 -0 -1 .0 PE 10 t ti PH 10 8- 2- 00 RS 88 Av ve YL 48 20 20 ai LI 20 08 08 FA la NE 2 DC bl LY e ER DR 20 UG 0 MG TA BL ET 66 01 06 02 30 30 YO 15 No Ac 79 -2 -0 0. UR 36 t ti 40 8- 5- 00 1 Av ve 00 20 20 0 PH ai 26 08 08 AR la 0 MA bl CY e MT 37 03 05 01 56 28 SO 28 No Ac IL 00 -2 -2 .0 PE 02 t ti OS 00 7- 2- 00 RS 17 Av ve EC 45 20 20 ai 50 08 08 FA la OT 3 DC bl C LY e [address] UG MG TA BL ET LI 00 02 05 02 30 30 SO 27 No Ac PI 07 -2 -2 .0 PE 67 t ti TO 10 1- 2- 00 RS 83 Av ve R 15 20 20 ai 40 72 08 08 FA la 3 DC bl MG LY e TA DR BL UG ET TH 50 04 05 01 60 30 SO 28 No Ac EO 11 -0 -2 .0 PE 10 t ti PH 10 8- 2- 00 RS 88 Av ve YL 48 20 20 ai LI 20 08 08 FA la NE 2 DC bl LY e ER DR 20 UG 0 MG TA BL ET BE 68 04 04 00 20 20 SO 28 No Ac NZ 38 -0 -2 .0 PE 10 t ti ON 20 8- 4- 00 RS 89 Av ve AT 24 20 20 ai AT 80 08 08 FA la E 1 DC bl 20 LY e [address] UG CA PS UL E 63 04 04 00 12 30 SO 28 No Ac 82 -0 -2 0. PE 10 t ti 40 8- 4- 00 RS 87 Av ve 00 20 20 0 ai 81 08 08 FA la 0 DC bl LY e DR UG AZ 00 04 04 00 6. 5 SO 28 No Ac IT 78 -0 -2 00 PE 10 t ti HR 11 8- 4- 0 RS 86 Av ve OM 49 20 20 ai YC 66 08 08 FA la IN 8 DC bl LY e [address] MG UG TA BL ET 00 04 04 00 21 6 SO 28 No Ac 55 -0 -2 .0 PE 10 t ti 50 8- 4- 00 RS 85 Av ve 30 20 20 ai 13 08 08 FA la 8 DC bl LY e DR UG TH 50 04 04 00 60 30 SO 28 No Ac EO 11 -0 -2 .0 PE 10 t ti PH 10 8- 4- 00 RS 88 Av ve YL 48 20 20 ai LI 20 08 08 FA la NE 2 DC bl LY e ER DR 20 UG 0 MG TA BL ET MT 37 03 04 00 56 28 SO 28 No Ac IL 00 -2 -1 .0 PE 02 t ti OS 00 7- 0- 00 RS 17 Av ve EC 45 20 20 ai 50 08 08 FA la OT 3 DC bl C LY e [address] UG MG TA BL ET LI 00 02 04 01 30 30 SO 27 No Ac PI 07 -2 -1 .0 PE 67 t ti TO 10 1- 0- 00 RS 83 Av ve R 15 20 20 ai 40 72 08 08 FA la 3 DC bl MG LY e TA DR BL [...] 40 72 08 08 FA la 3 DC bl MG LY e TA DR BL UG ET 66 01 03 00 30 30 YO 15 No Ac 79 -2 -2 0. UR 36 t ti 40 8- 6- 00 1 Av ve 00 20 20 0 PH ai 26 08 08 AR la 0 MA bl CY e MT 37 01 03 01 56 28 SO 27 No Ac IL 00 -1 -2 .0 PE 26 t ti OS 00 4- 6- 00 RS 51 Av ve EC 45 20 20 ai 50 08 08 FA la OT 3 DC bl C LY e [address] UG MG TA BL ET LI 00 10 03 02 30 30 SO 26 No Ac PI 07 -2 -2 .0 PE 59 t ti TO 10 9- 5- 00 RS 30 Av ve R 15 20 20 ai 40 72 07 08 FA la 3 DC bl MG LY e TA DR BL UG ET MT 37 01 03 00 56 28 SO 27 No Ac IL 00 -1 -2 .0 PE 26 t ti OS 00 4- 5- 00 RS 51 Av ve EC 45 20 20 ai 50 08 08 FA la OT 3 DC bl C LY e [address] [...] Comment O2 CONC 1 E1390 [facility]IE AKBAR [facility] 7 HOME HOME 85%/>02 MEDICAL MEDICAL CONC AT EQUIPME [facility] [place] FLW RATE DRUG TEST G0481 [facility] DEFINITV [address] ID INC INC METH P DAY 8-14 DRUG CL DRUG TEST 54722 [facility] DYER PRSMV 7 [facility] QUAL DIR INC INC OPTICAL OBS PER DAY O2 CONC 1 E1390 NAOMIE AKBAR [facility] 7 HOME HOME 85%/>[facility] FL[facility] THER 54992 [facility] PROPH/DX [address] [place] [address] SEQL IV PUSH SBST/DRUG FAC OBSERVATI 60379 NIKITA TOBIN ON CARE 7 W N DISCHARGE [facility]PITAL[facility] G0378 [facility] OBSERVATI [address] [place] [address] HOSPITAL SERVICE PER HOUR INJECTION J0692 [facility] CEFEPIME [address] [place] [address] HYDROCHLO RIDE 500 MG INJECTION J1644 [facility] HEPARIN [address] [place] [address] PER 1000 UNITS INJ J2930 [facility] METHYLPRD [address] [place] [address] SODIUM SUCCNAT TO 125 MG INFUSION J7030 [facility] NORMAL [address] [place] [address] [facility] SOLUTION 1000 CC BASIC 30183 [facility] METABOLIC [address] [place] [address] CALCIUM TOTAL COLLECTIO 10090 [facility] N VENOUS [address] [place] [address] VENIPUNCT URE BLOOD [address] AUTO&AUTO DIFRNTL WBC THERAPEUT 00249 [facility] IC [address] [place] [address] TIC/DX INJECTION SUBQ/IM THERAPEUT [address] IV PUSH EACH NEW DRUG THER 16155 [facility] PROPH/DX [address] [place] [address] [facility]X [facility] SEQL IV PUSH SBST/DRUG FAC THERAPEUT [address] TIC/DX INJECTION SUBQ/[place] [address] [facility] INFUSION [address] [place] [address] PROPHYLAX IS/[place] H[place] [address] [facility] INFUSION [address] [place] [address] THERAPY/P [facility] ROPHYLAXI S /DX 1ST TO 1 HR ECG 27917 [facility] ROUTINE [address] [place] [address] ECG [facility] W/LEAST 12 LDS TRCG ONLY W/O I&[place] [address] [facility] TROPONIN [address] [place] [address] [place] [address] [facility] MAGNESIUM [address] [place] [address] BLOOD 07338 [facility] COUNT [address] [place] [address] AUTO&AUTO DIFRNTL WBC CUL BACT 45568 [facility] XCPT [address] [place] [address] URINE [facility] BLOOD/STO OL AEROBIC ISOL SMR PRIM 26391 [facility] SRC [address] [place] [address] GRAM/GIEM [facility] SA STAIN BCT FUNGI/ROZINA L COLLECTIO 09712 [facility] N VENOUS [address] [place] [address] VENIPUNCT URE BASIC 23363 [facility] METABOLIC [address] [place] [address] CALCIUM TOTAL INJ J2930 [facility] METHYLPRD [address] [place] [address] SODIUM SUCCNAT TO 125 MG INJECTION J1644 [facility] HEPARIN [address] [place] [address] HOSPITAL PER 1000 UNITS INJECTION J0692 [facility] CEFEPIME [address] [place] [address] HYDROCHLO RIDE 500 MG INFUSION J7030 [facility] NORMAL [address] [place] [address] SOLUTION 1000 CC INITIAL 28884 [facility] OBSERVATI 7 W N ON HOSPITALI CARE/DAY ST 50 MINUTES TOBACCO 22161 [facility] USE [address] [place] [address] INTENSIVE >10 MINUTES INJECTION J0692 [facility] CEFEPIME [address] [place] [address] HYDROCHLO RIDE 500 MG INJECTION J1956 [address] RENET[place] 250 MG INJECTION J1644 [facility] HEPARIN [address] [place] [address] HOSPITAL PER 1000 UNITS INJ J2930 [facility] METHYLPRD [address] [place] [address] SODIUM SUCCNAT TO 125 MG INFUSION J7030 [facility] NORMAL [address] [place] [address] SOLUTION 1000 CC COMPREHEN 06431 [facility] SIVE [address] [place] [address] PANEL URNLS DIP [address] STICK/TAB [facility] LET REAGENT AUTO MICROSCOP Y CORTISOL 12977 [facility] TOTAL [address] [place] [address] COLLECTIO 63904 [facility] N VENOUS [address] [place] [address] VENIPUNCT URE RADIOLOGI 25701 [facility] [facility] C EXAM [address] [place] [address] VIEWS FRONTAL&L ATERAL CULTURE 70019 [facility] [facility] BACTERIAL [address] [place] [address] QUANTTATI VE COLONY COUNT URINE CULTURE 17417 [facility] BACTERIAL [address] [place] [address] BLOOD [facility] AEROBIC W/ID ISOLATES BLOOD 59090 [facility] COUNT [address] [place] [address] COMPLETE [facility] AUTO&[place] [address] [facility] OSMOLALIT [address] [place] [address] Y URINE [facility] BLOOD 19386 [facility] GASES ANY [address] [place] [address] COMBINATI ON PH PCO2 [place] [address] [facility] LACTATE [address] [place] [address] [place] [address] [facility] URINE [address] [place] [address] [place] [address] [facility] TROPONIN [address] [place] [address] [place] ECG 81789 [facility] ROUTINE [address] [place] [address] W/LEAST 12 LDS TRCG ONLY W/O I&R THERAPEUT 55693 [facility] IC [address] [place] [address] [facility]DX INJECTION SUBQ/IM ECG 03128 [facility] [place] ROUTINE 7 DESIRE ECG EMERGENCY W/LEAST PHYS 12 LDS I&R ONLY PRESSURIZ 84552 [facility] ED/NONPRE [address] [place] [address] INHALATIO N TREATMENT DRUG TEST 95868 GOME[facility] DYER PRSMV 7 [facility] QUAL DIR INC INC OPTICAL OBS PER DAY O2 CONC 1 E1390 NAOMIE AKBAR [facility] 7 HOME HOME 85%/>02 MEDICAL MEDICAL CONC AT EQUIPME EQUIPME PRS FLW RATE DRUG TEST 41627 GOMEZ DYER PRSMV 7 [facility] HOSP QUAL DIR [place] [address] [facility] [address] CLINIC ATTENUATI ON WHOLE BODY FLUORODEO A9552 [facility] XYGLUCOSE 7 Y MEDICAL F-18 FDG CLINIC DX UP TO 45 MCI SBSQ 09939 [facility] 7 NE HEALTH CARE/DAY MEDICAL 35 G MINUTES INITIAL 11368 [facility] 7 NE HEALTH CONSULT MEDICAL NEW/ESTAB G PT 80 MIN RADIOLOGI 04122 [facility] RADIOLOGY LD IV CHEST 2 VIEWS FRONTAL&[place] [address] [facility] [place] [facility] CRV 7 NE HEALTH CRTD ART MEDICAL EMBOLIC G PROTECJ ECG 62823 [facility] ROUTINE 7 NE HEALTH ECG MEDICAL W/LEAST G 12 LDS I&R ONLY DUPLEX 26564 [facility] SCAN 7 [facility] EXTRACRAN RADIOLOGY IAL ART ASSOCIAT COMPL BI STUDY INITIAL 31061 [facility] YUE INPATIENT 7 NE HEALTH CONSULT MEDICAL NEW/ESTAB G PT 80 MIN GROUND A0425 [facility] [address] PER AMBULANCE AMBULANCE STATUTE MILE AMB A0427 [facility] SERVICE [address] [place] [address] ALS AMBULANCE AMBULANCE EMERGENCY TRANSPORT LEVEL 1 ECG 00688 [facility] ROUTINE 7 DESIRE ECG EMERGENCY W/LEAST PHYS 12 LDS I&[place] [address] [facility] HEAD/BRAI 7 EIDER N W/O RADIOLOGY CONTRAST ASSOCIAT MATERIAL RADIOLOGI 46579 [facility] C EXAM 7 EIDER CHEST 2 RADIOLOGY VIEWS ASSOCIAT FRONTAL&[place] [address] [facility] ABDOMEN & 7 EIDER PELVIS RADIOLOGY W/O ASSOCIAT CONTRAST MATERIAL O2 CONC 1 E1390 NAOMIE CARRION [place] 7 HOME HOME 85%/>02 MEDICAL MEDICAL CONC AT EQUIPME EQUIPME [facility] FLW RATE LOCM Q9967 [facility] [phone] [place] [address] MG/ HOSPITAL HOSPITAL IODINE CONCENTRA TION [place] CT SOFT [address] [facility] TISSUE [address] [place] [address] [facility] W/[place] [address] [facility] ABDOMEN & [address] [place] [address] [facility] W/CONTRAS [place] MAT[place] THORAX [address] W/[facility] T MATERIAL LOCM Q9967 [facility] [phone] [place] [address] MG/[facility] IODINE CONCENTRA TION PER ML ADMN SET A7005 NAOMIE AKBAR W/SM VOL 7 HOME HOME NONFILTR MEDICAL MEDICAL NEBULIZR EQUIPME EQUIPME NON-DISPB L DRUG TEST G0481 [facility]OME[facility] DYER DEFINITV [address] ID INC INC METH P DAY 8-14 DRUG CL DRUG TEST 83198 GOMEZ DYER PRSMV 7 [facility] QUAL DIR INC INC OPTICAL OBS PER DAY COMPREHEN 83998 [facility] SIVE 7 DARRYL DARRYL [facility]AB[facility] PANEL LACTATE 85455 [facility] D[facility] DEHYDROGE 7 DARRYL DARRYL NASE [facility] BLOOD 42484 [facility] COUNT 7 DARRYL DARRYL COMPLETE [facility] AUTO&AUTO DIFRNTL WBC O2 CONC 1 E1390 NAOMIE NAOMIE [facility] 7 HOME HOME 85%/>02 MEDICAL MEDICAL CONC AT EQUIPME EQUIPME PRSC FLW RATE DRUG TEST G0480 GOMEZ DYER DEFINITV [address] ID INC INC METH P DAY 1-7 DRUG CL DRUG TEST G0481 GOMEZ DYER DEFINITV [address] ID INC INC METH P DAY 8-14 DRUG CL DRUG TEST 69874 GOMEZ DYER PRSMV 7 [facility] QUAL DIR INC INC OPTICAL OBS PER DAY RADEX 73764 [facility] HAND [address] [place] [address] HOSPITAL VIEWS REPAIR 28290 [facility] INTERMEDI [address] [place] [address] N/H/F/XTR NL GENT 2.6-7.5 CM TDAP 40242 [facility] VACCINE [address] [place] [address] YRS/> [facility] DEBRIDEME 25088 [facility] NT OPEN 7 DESIRE WOUND 20 EMERGENCY SQ CM/< PHYS O2 CONC 1 E1390 NAOMIE CARRION [facility] HOME HOME 85%/>02 MEDICAL MEDICAL CONC AT EQUIPME EQUIPME PRS FLW RATE INFUSION J7030 [address] SOLUTION 1000 CC INJECTION J2405 [address] ON HCL PER 1 MG DRUG TEST G0480 [facility] DEFINITV [address] [place] [address] DR ID [facility] METH P DAY 1-7 DRUG CL IAADIADOO [address] [facility] CULTURE [address]87 [facility] BACTERIAL [address] [place] [address] [facility] AEROBIC W/[place] [address] [facility] LIPASE [address] [place] [address] [place] [address] [facility] LACTATE [address] [place] [address] [place] [address] [facility] MAGNESIUM [address] [place] [address] [place] [address] [facility] [facility] FREE [address] [place] [address] [place] [address] [facility] TROPONIN [address] [place] [address] [place] ECG 10779 [facility] ROUTINE DESIRE ECG EMERGENCY W/LEAST PHYS 12 LDS I&R ONLY THER 12620 [facility] PROPH/DX [address] [place] [address] NJX [facility] PUSH SINGLE/1S T SBST/[place] [address] [facility] INFUSION [address] [place] [address] [facility]DR[facility] EACH ADDITIONA L HOUR ECG 42290 [facility] ROUTINE [address] [place] [address] W/LEAST 12 LDS TRCG ONLY W/O I&R COLLECTIO 63747 [facility] N VENOUS [address] [place] [address] [place] [address] [facility] HEAD/BRAI [address] [place] [address] W/O [facility] CONTRAST MATERIAL RADIOLOGI 93846 [facility] C EXAM [address] [place] [address] CHEST 2 [facility] VIEWS FRONTAL&L ATERAL DRUG TEST 50362 [facility] PRSMV [address] [place] [address] INSTRU.S. [facility] CHEMISTRY ANALYZERS URNLS DIP [address] STICK/TAB [facility] LET REAGENT AUTO MICROSCOP Y GENERAL 49985 [facility] HEALTH [address] [place] [address] DRUG 30607 GOMEZ DYER SCREENING 7 [facility] OPIOIDS INC INC & OPIATE ANALOGS 5/MORE DRUG TEST 36047 GOMEZ DYER PRSMV 7 [facility] QUAL DIR INC INC OPTICAL OBS PER DAY NJX 09279 NEIDA ADRIANFF DX/THER 7 MD SUNNY, AGT PVRT PSC FACET JT LMBR/SAC 1 LEVEL NJX 45985 NEIDA ADRIANFF DX/THER 7 MD SUNNY, AGT PVRT PSC FACET JT LMBR/SAC 2ND LEVEL O2 CONC 1 E1390 NAOMIE AKBAR DEL PORT 7 HOME HOME 85%/>02 MEDICAL MEDICAL CONC AT EQUIPWA EQUIPWA PRSC FLW RATE DRUG TEST 51291 GOMEZ DYER PRSMV 7 [facility] QUAL DIR INC INC OPTICAL OBS PER DAY CYANOCOBA 10012 GOMEZ DYER JENNY 7 [facility] VITAMIN INC INC B-12 PPSV23 62409 [facility] FRANCISCO VACCINE 2 7 PHYSICIAN YRS OR S GROUP OLDER FOR SUBQ/IM USE DRUG TEST 01553 GOMEZ DYER PRSMV 7 [facility] QUAL DIR INC INC OPTICAL OBS PER DAY DRUG TEST G0480 GOMEZ DYER DEFINITV [address] ID INC INC METH P DAY 1-7 DRUG CL DRUG TEST G0481 GOMEZ DYER DEFINITV [address] ID INC INC METH P DAY 8-14 DRUG CL COMPREHEN 00853 [facility] SIVE 7 DARRYL DARRYL METABOLIC HOLDINGS HOLDINGS PANEL BLOOD 13435 [facility] COUNT 7 DARRYL DARRYL COMPLETE HOLDINGS HOLDINGS AUTO&[place] [address] [facility] BLOOD/URI 7 DARRYL DARRYL C ACID HOLDINGS HOLDINGS LACTATE 41511 [facility] DEHYDROGE 7 DARRYL DARRYL [place] [address] [facility] D[facility] MAGNESIUM 7 DARRYL [...] CONC AT EQUIPME EQUIPME [facility] FLW RATE MOTION 49633 KUSH PEREZ [address] [place] [address] FUN C/V REC SWALLOWIN 17[address] KUSH Benson [address] W/[facility] IOGRAPY/V IDRADIOG ADMN SET A7005 NAOMIE AKBAR W/SM VOL 6 HOME HOME NONFILTR MEDICAL MEDICAL NEBULIZR EQUIPME EQUIPME NON-DISPB L COLLECTIO 22572 SHERMAN Perera VENOUS 6 Y [facility]ICAL [facility] [place] [address] [facility] ERYTHROPO 6 DARRYL DARRYL [place] [address] [facility] D[facility] FERRITIN 6 DARRYL DARRYL HOLDINGS HOLDINGS CYANOCOBA 81346 [facility] D[facility] JENNY 6 DARRYL DARRYL VITAMIN HOLDINGS HOLDINGS B-12 [place] [address] [facility] D[facility] FOLIC 6 [facility] [place] [address] [facility] IRON 6 DARRYL DARRYL HOLDINGS HOLDINGS NONINVASI 75216 SHERMAN MANZANARES VE 6 Y MEDICAL [facility] EAR/PULSE CLINIC OXIMETRY SINGLE DETER LACTATE 84392 [facility] DEHYDROGE 6 [facility] [place] [address] LAB [facility] LAB DIEGO [id number] 6 DARRYL DARRYL SFERRIN HOLDINGS HOLDINGS BLOOD 39733 [facility] COUNT 6 DARRYL DARRYL COMPLETE HOLDINGS HOLDINGS AUTO&AUTO DIFRNTL WBC BLOOD 98671 [facility] COUNT 6 [facility] RETICULOC [place] [address] [address]USH [address]ABRIEL [address] [place] [address] DYSFUNCTI ON&/ORAL FUNCJ FEEDING INTERROGA 64375 [facility] BRITANY TION 6 PHYSICIAN MAT EVALUATIO S GROUP N IN PERSON ILR SYSTEM ECG 00585 GOMEZ DYER ROUTINE 6 [facility] ECG INC INC W/LEAST 12 LDS TRCG ONLY W/O I&[place] [address] KUSH GABRIEL [address] [place] [address] DYSFUNCTI ON&/ORAL FUNCJ FEEDING HOS BED E0260 NAOMIE AKBAR SEMI-ELEC 6 HOME HOME W/ANY MEDICAL MEDICAL TYPE SIDE EQUIPME EQUIPME RAIL W/MATTRSS O2 CONC 1 E1390 NAOMIE GORDON 6 HOME HOME 85%/>02 MEDICAL MEDICAL CONC AT EQUIPME EQUIPME [facility] FLW RATE PRESCRIPT J8499 [facility] ION DRUG [address] [place] [address] NONCHEMOT HERAPEUTI C NOS PRESSURIZ 12987 [facility] ED/NONPRE [address] [place], [place] [address]URIZED [facility] [place] [address] [facility] IRON [address] [place] [address] IRON 90545 [facility] BINDING [address] [place] [address] [place] [address] [facility] FOLIC [address] [place] [address] ACID [facility] SERUM CYANOCOBA 55875 [facility] JENNY [address] [place] [address] B-12 [place] [address] [facility] FERRITIN [address] [place] [address] BASIC 15272 [facility] METABOLIC [address] [place] [address] CALCIUM TOTAL GENERAL 74928 [facility] HEALTH [address] [place] [address] [place] [address] [facility] LACTATE [address] [place] [address] CREATINE 16649 [facility] KINASE [address] [place] [address] HOSPITAL COLLECTIO 68269 [facility] N VENOUS [address] [place] [address] [place] [address] [facility] HEAD/BRAI [address] [place] [address] W/O [facility] [place] [address] [facility] INFUSION [address] [place] [address] HOSPITAL INITIAL 31 MIN-1 [place] [address] [facility] INFUSION [address] [place] [address] EACH ADDITIONA L HOUR ECG 53742 [facility] ROUTINE 6 DESIRE PHI ECG EMERGENCY W/LEAST PHYS 12 LDS I&R ONLY ECG 64984 [facility] ROUTINE [address] [place] [address] HOSPITAL W/LEAST 12 LDS TRCG ONLY W/O I&[place] [address] [facility] TROPONIN [address] [place] [address] [place] [address] [facility] MAGNESIUM [address] [place] [address] [place] [address] KUSH CURRIE FREE [address] [place] [address] HOSPITAL INFUSION J7030 KUSH CURRIE NORMAL [address] [place] [address] HOSPITAL SOLUTION 1000 CC HOSPITAL G0378 CURRIETAMI CURRIE OBSERVATI [address] [place] [address] HOSPITAL SERVICE PER HOUR CRITICAL 11984 [facility] 6 DESIRE PHI ILL/INJUR EMERGENCY ED PHYS PATIENT INIT 30-[place] [address] DYSFUNCTI ON&/[place] [address] DYSFUNCTI ON&/[place] [address] DYSFUNCTI ON&/[place] [address] DYSFUNCTI ON&/[place] [address] DYSFUNCTI ON&/[place] [address] DYSFUNCTI ON&/ORAL FUNCJ [place]ED[place] RADIOLOGI 48699 [facility] MEDICAL EXAMINATI IMAGING ON EYE ASS DETECT FOREIGN BODY 3D 86181 [facility] JARRE[facility] RENDERING 6 MEDICAL DEMARCUS W/INTERP IMAGING & ASS POSTPROCE SS SUPERVISI ON MRI 90991 [facility] JARRE[facility] SPINAL 6 MEDICAL DEMARCUS CANAL IMAGING LUMBAR ASS W/O CONTRAST MATERIAL ECG 43978 GOMEZ DYER ROUTINE 6 [facility] ECG INC INC W/LEAST 12 LDS TRCG ONLY W/O I&[place] [address] DYSFUNCTI ON&/ORAL [place]UNC[place] 07914 SHEMRAN MANZANARES IMAGING 6 Y MEDICAL [facility] FOR CT CLINIC ATTENUATI ON WHOLE BODY FLUORODEO A9552 SHERMAN MANZANARES XYGLUCOSE 6 Y MEDICAL [facility] F-18 FDG CLINIC DX UP TO 45 [place] [address] KUSH GABRIEL [address] [place] [address] DYSFUNCTI ON&/ORAL FUNCJ FEEDING HOS BED E0260 NAOMIE AKBAR SEMI-ELEC 6 HOME HOME W/ANY MEDICAL MEDICAL TYPE SIDE EQUIPME EQUIPME RAIL W/MATTRSS O2 CONC 1 E1390 NAOMIE AKBAR DEL PORT 6 HOME HOME 85%/>02 MEDICAL MEDICAL CONC AT [place] [address] KSUH GABRIEL [address] [place] [address] DYSFUNCTI ON&[place] [address] KUSH GABRIEL [address] [place] [address] DYSFUNCTI ON&/ORAL FUNCJ FEEDING BLOOD 64318 [facility] COUNT 6 DARRYL DARRYL COMPLETE HOLDINGS HOLDINGS AUTO&AUTO DIFRNTL WBC LACTATE 52791 [facility] DEHYDROGE 6 DARRYL DARRYL NASE LDH HOLDINGS HOLDINGS COMPREHEN 33742 [facility] SIVE 6 DARRYL DARRYL METAB[place] [address] KUSH GABRIEL [address] [place] [address] DYSFUNCTI ON&/[place] [address] KUSH GABRIEL [address] [place] [address] DYSFUNCTI ON&[place] [address] KUSH GABRIEL [address] [place] [address] DYSFUNCTI ON&/ORAL FUNCJ FEEDING DRUG TST G0477 GOMEZ DYER PRESUMP;C 6 [facility] PBL BEING INC INC READ DC OPT OBV ONLY DRUG TEST G0481 GOMEZ DYER DEFINITV [address] [address] ID INC INC METH P DAY 8-[place] [address] [address]USH [address]ABRIEL [address] [place] [address] DYSFUNCTI ON&[place] [address] KUSH GABRIEL [address] [place] [address] DYSFUNCTI ON&/[place] [address] KUSH CURRIE SWALLOWIN [address] [place] [address] DYSFUNCTI ON&/[place] [address] KUSH CURRIE SWALLOWIN [address] [place] [address] HOSPITAL DYSFUNCTI ON&/ORAL FUNCJ FEEDING DUPLEX 66923 GOMEZ GOMEZ SCAN 6 [facility] EXTRACRAN INC INC IAL ART COMPL BI STUDY HOS BED E0260 NAOMIE AKBAR SEMI-ELEC 6 HOME HOME W/ANY MEDICAL MEDICAL TYPE SIDE EQUIPME EQUIPME RAIL W/MATTRSS O2 CONC 1 E1390 NAOMIE AKBAR DEL PORT 6 HOME HOME 85%/>02 MEDICAL MEDICAL CONC AT EQUIPME EQUIPME PRSC FLW RATE INTERROGA 82922 [facility] BRITANY TION 6 PHYSICIAN MAT EVALUATIO S GROUP N IN PERSON ILR SYSTEM ECG 62728 GOMEZ DYER ROUTINE 6 [facility] ECG INC INC W/LEAST 12 LDS TRCG ONLY W/O I&R HOS BED E0260 NAOMIE NAOMIE SEMI-ELEC 6 HOME HOME W/ANY MEDICAL MEDICAL TYPE SIDE EQUIPME EQUIPME RAIL W/MATTRSS O2 CONC 1 E1390 NAOMIE AKBAR DEL PORT 6 HOME HOME 85%/>02 MEDICAL MEDICAL CONC AT EQUIPME EQUIPME PRSC FLW RATE DIRECT G0299 ST EDENILSON CASTELLANO RN 6 [facility] DESPATCHING AND RECEIVING CLERK DESPATCHING AND RECEIVING CLERK SPICE SET EA 15 MIN LACTATE 14854 [facility] DEHYDROGE 6 DARRYL DARRYL NASE [facility] HOLDINGS BLOOD 07806 [facility] COUNT 6 DARRYL DARRYL COMPLETE HOLDINGS HOLDINGS AUTO&AUTO DIFRNTL WBC COMPREHEN 87992 [facility] D[facility] SIVE 6 DARRYL DARRYL METABOLIC HOLDINGS HOLDINGS PANEL DIRECT G0299 ST EDENILSON CASTELLANO RN 6 [facility] DESPATCHING AND RECEIVING CLERK DESPATCHING AND RECEIVING CLERK SPICE SET EA 15 MIN [address] EDENILSON CASTELLANO RN 6 [facility] DESPATCHING AND RECEIVING CLERK DESPATCHING AND RECEIVING CLERK SPICE SET EA 15 MIN HOME TX; S9341 INFUSION INFUSION ENTERAL 6 PARTNERS PARTNERS NUTRITION OF OF VIA [place] GRAVITY; 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 B4152 INFUSION INFUSION NUTRITION 6 PARTNERS PARTNERS CMPL VASQUEZ OF OF DENSE [place] INTACT NUTRNTS INTERROGA 70053 [facility] BRITANY TION 6 PHYSICIAN MAT EVALUATIO S GROUP N IN PERSON ILR SYSTEM HOS BED E0260 NAOMIE AKBAR SEMI-ELEC 6 HOME HOME W/ANY MEDICAL MEDICAL TYPE SIDE EQUIPME EQUIPME RAIL W/MATTRSS DIRECT G0299 ST EDENILSON CASTELLANO RN 6 [facility] DESPATCHING AND RECEIVING CLERK SPICE SET EA 15 MIN O2 CONC 1 E1390 NAOMIE AKBAR DEL PORT 6 HOME HOME 85%/>02 MEDICAL MEDICAL CONC AT EQUIPME EQUIPME PRSC FLW RATE DIRECT G0299 ST EDENILSON CASTELLANO RN 6 [facility] FLOWER MOUNDA DESPATCHING AND RECEIVING CLERK SPICE SET EA 15 MIN BLOOD 11583 GOMEZ DYER COUNT 6 [facility]OS[facility] COMPLETE INC INC AUTO&AUTO DIFRNTL WBC BASIC 67573 GOMEZ DYER METABOLIC 6 [facility] PANEL INC INC CALCIUM TOTAL RADIOLOGI 57880 [place] [address] MEDICAL DEMARCUS EXAMINATI IMAGING ON CHEST ASS SINGLE VIEW FRONTAL COLLECTIO 59561 GOMEZ DYER N VENOUS 6 [facility] H[facility]OS[facility] BLOOD INC INC VENIPUNCT URE DIRECT G0299 ST EDENILSON CASTELLANO RN 6 [facility] FLOWER MOUNDA DESPATCHING AND RECEIVING CLERK SPICE SET EA 15 MIN SBSQ 49796 [facility] 6 MEDICAL CARE/DAY SERV 25 FOUNDATIO MINUTES N ADDITIVE B4104 INFUSION INFUSION FOR 6 PARTNERS PARTNERS ENTERAL OF OF [place]ULA [place] ENTRAL F B4152 INFUSION INFUSION NUTRITION 6 PARTNERS PARTNERS CMPL VASQUEZ OF OF DENSE [place] INTACT NUTRNTS HOME [place]; S9341 INFUSION INFUSION ENTERAL 6 PARTNERS PARTNERS NUTRITION OF OF VIA [place] GRAVITY; [place] [address] TIFFANIE BRANDEE RETROPERI 6 MEDICAL ADR TONEAL SERV REAL TIME FOUNDATIO W/IMAGE N COMPLETE RADIOLOGI 25742 TIFFANIE OCONNELL HENRIK C 6 MEDICAL EXAMINATI SERV ON CHEST FOUNDATIO SINGLE N VIEW FRONTAL THORACENT 13868 TIFFANIE RAISSI ESIS 6 MEDICAL DRI NEEDLE/CA SERV TH PLEURA FOUNDATIO N W/IMAGING CYTP 17558 [facility] SLCTV 6 Y OF ОЛЕГ CELL [facility] NT INTERPJ XCPT C/[place] [address] [facility] 6 Y OF ОЛЕГ PATHOLOGY [facility] GROSS&KAMILA ROSCOPIC EXAM SBSQ 89644 [facility] 6 MEDICAL OS CARE/DAY SERV 25 FOUNDATIO MINUTES N SBSQ 38524 [facility] 6 MEDICAL OS CARE/DAY SERV 25 FOUNDATIO MINUTES N SBSQ 34373 [facility] 6 MEDICAL OS ROZINA CARE/DAY SERV 25 FOUNDATIO MINUTES N SBSQ 92380 [facility] 6 MEDICAL OS ROZINA CARE/DAY SERV 25 FOUNDATIO MINUTES N INITIAL 51406 [facility] 6 DESIRE A RIVAS CARE/DAY PHYSICIAN 70 SERVI MINUTES SWALLOWIN 32040 RI PEREZ Benson FUNCJ 6 MEDICAL SCO W/CINERAD SERV IOGRAPY/V FOUNDATIO IDRADIOG N RADIOLOGI 69677 [facility] ALL C EXAM 6 MEDICAL CHEST 2 IMAGING VIEWS ASS FRONTAL&L ATERAL CT THORAX 43896 [facility] PH[facility] ALL 6 MEDICAL W/CONTRAS IMAGING T ASS MATERIAL ECG 41738 [place] [facility] ROUTINE 6 MEDICAL NAN ECG SERV W/LEAST FOUNDATIO 12 LDS N I&R ONLY HOSPITAL 85666 [facility] 6 DESIRE IRM DAY PHYSICIAN MANAGEMEN SERVI T > 30 MIN SBSQ 26568 [facility] 6 DESIRE IRM CARE/DAY PHYSICIAN 25 SERVI MINUTES SBSQ 60089 [facility] 6 DESIRE IRM CARE/DAY PHYSICIAN 25 SERVI MINUTES SBSQ 61903 [facility] 6 DESIRE IRM CARE/DAY PHYSICIAN 25 SERVI MINUTES INITIAL 76298 [facility] 6 DESIRE IRM CARE/DAY PHYSICIAN 70 SERVI MINUTES O2 CONC 1 E1390 [place] [address] HOME HOME 85%/>02 MEDICAL MEDICAL CONC AT EQUIPME [facility] PRS FLW RATE DRUG TST G0477 GOMEZ DYER PRESUMP;C 6 MEM HOSP [facility]OS[facility] PBL BEING INC INC READ DC OPT OBV ONLY O2 CONC 1 E1390 [place] [address] HOME HOME 85%/>02 [facility] FL[facility] DRUG TST G0477 GOMEZ [...] DRUG CL O2 CONC 1 E1390 [place]IE [place] [address] HOME HOME 85%/>02 MEDICAL MEDICAL CONC AT EQUIPME [facility] [place] FLW RATE DRUG TST G0477 GOMEZ DYER PRESUMP;C 6 MEM HOS[facility] MEM [facility]OS[facility] PBL BEING INC INC READ DC OPT OBV ONLY INTERROGA 80633 CARDIOVAS BRITANY TION 5 CULAR MAT EVALUATIO CONSULTAN N IN TS O PERSON ILR SYSTEM INTERROGA 92341 CARDIOVAS BRITANY TION 5 CULAR MAT EVALUATIO CONSULTAN N IN TS O PERSON ILR SYSTEM O2 CONC 1 E1390 NAOMIE [facility] 5 HOME HOME 85%/>02 MEDICAL MEDICAL CONC AT EQUIPME [facility] [place] FLW RATE ECG 40941 CARDIOVAS BRITANY ROUTINE 5 CULAR MAT ECG CONSULTAN W/LEAST TS O 12 LDS I&R ONLY ECG 20977 GOMEZ DYER ROUTINE 5 [facility] ECG INC INC W/LEAST 12 LDS TRCG ONLY W/O I&R INTERROGA 22487 CARDIOVAS BRITANY TION 5 CULAR MAT EVALUATIO CONSULTAN N IN TS O PERSON ILR SYSTEM O2 CONC 1 E1390 NAOMIE CARRION [facility] 5 HOME HOME 85%/>02 MEDICAL MEDICAL CONC AT EQUIPME [facility] FLW RATE INJECTION J0696 GOMEZ MINAYAEMILI 5 [facility] SODIUM PER 250 MG THERAPEUT 89573 GOMEZ HICKMAN IC 5 [facility] TIC/DX INJECTION SUBQ/IM HOSPITAL 44153 [facility] 5 DESIRE DAY PHYSICIAN MANAGEMEN SERVI T > 30 MIN SBS 49695 [facility] 5 Y MEDICAL [facility] CARE/DAY CLINIC 35 MINUTES SBS 11560 [facility] 5 DESIRE CARE/DAY PHYSICIAN 25 SERVI MINUTES INITIAL 58192 [facility] 5 DESIRE CARE/DAY PHYSICIAN 30 SERVI MINUTES INITIAL 54919 [facility] 5 Y MEDICAL [facility] CARE/DAY CLINIC 70 MINUTES RADIOLOGI 16679 [facility] C EXAM 5 NGOZI CHEST 2 RADIOLOGY VIEWS ASSOCIAT FRONTAL&L ATERAL INTERROGA 02922 CARDIOVAS BRITANY TION 5 CULAR MAT EVALUATIO CONSULTAN N IN TS O PERSON ILR SYSTEM ECG 06258 CARDIOVAS BRITANY ROUTINE 5 CULAR MAT ECG CONSULTAN W/LEAST TS O 12 LDS I&R ONLY ECG 10730 GOMEZ DYER ROUTINE 5 [facility] ECG INC INC W/LEAST 12 LDS TRCG ONLY W/O I&R O2 CONC 1 E1390 NAOMIE GORDON 5 HOME HOME 85%/>02 MEDICAL MEDICAL CONC AT EQUIPME [facility]PAR[facility] FLW RATE LOCM Q9967 GOMEZ DYER 300-399 5 [facility] H[facility] MG/ML INC INC IOD[place] [address] GOMEZ DYER UREA 5 [facility] NITROGEN INC INC QUANTITAT [place] COLLECTIO 23232 GOMEZ DYER N VENOUS 5 [facility] H[facility]OS[facility] BLOOD INC INC VENIPUNCT URE CT SOFT 70954 PATR[facility]IA PHILIP ALL TISSUE 5 MEDICAL NECK W/O IMAGING & ASS W/[place] [address] GOMEZ DYER ANGIOGRAP 5 MEM [facility] HY NECK INC INC W/CONTRAS T/NONCONT RAST CREATININ 66494 GOMEZ DYER E BLOOD 5 MEM [facility] HOS[facility] INC INC PET 56917 [facility] 5 Y MEDICAL [facility] FOR CT CLINIC ATTENUATI ON WHOLE BODY FLUORODEO A9552 [facility] XY[facility]SE 5 Y MEDICAL [facility] F-18 FDG CLINIC DX UP TO [address] THORAX 76240 CURRIE LAURENCE W/O & 5 REGIONAL GLE W/CONTRAS MEDICAL T BELKIS MATERIAL CT SOFT 29769 KUSH LAURENCE TISSUE 5 REGIONAL GLE NECK W/O MEDICAL & [place] [address] KUSH WILLISMACK HEAD/BRAI 5 REGIONAL GLE N W/O & MEDICAL W/CONTRAS BELKIS T MATERIAL GENERAL 24881 [facility] HEALTH 5 DARRYL DARRYL [place] [address] LAB [facility] FOLIC 5 DARRYL DARRYL ACID HOLDINGS HOLDINGS SERUM CYANOCOBA 13019 LAB D[facility] DIEGO JENNY 5 DARRYL DARRYL VITAMIN HOLDINGS HOLDINGS B-12 LACTATE 62442 LAB D[facility] D[facility] DEHYDROGE 5 DARRYL DARRYL NASE LDH [employer]INGS HOLDINGS ECG 48817 GOMEZ DYER ROUTINE 5 [facility] HOSP ECG INC INC W/LEAST 12 LDS TRCG ONLY W/O I&R ECG 98577 CARDIOVAS BRITANY ROUTINE 5 CULAR MAT ECG CONSULTAN W/LEAST TS O 12 LDS I&R ONLY O2 CONC 1 E1390 NAOMIE CARRION [place] 5 HOME HOME 85%/>02 MEDICAL MEDICAL CONC AT EQUIPME EQUIPME PRS FLW RATE ECG 01176 CARDIOVAS BRITANY ROUTINE 5 CULAR MAT ECG CONSULTAN W/LEAST TS O 12 LDS I&R ONLY ECG 60798 GOMEZ DYER ROUTINE 5 [facility] ECG INC INC W/LEAST 12 LDS TRCG ONLY W/O I&R DUPLEX 11579 PATRICIA PHILIP ALL SCAN 5 MEDICAL EXTRACRAN IMAGING IAL ART ASS COMPL BI STUDY ECG 44918 GOMEZ DYER ROUTINE 5 [facility] ECG INC INC W/LEAST 12 LDS TRCG ONLY W/O I&R ECG 96200 CARDIOVAS CARDIOVAS ROUTINE 5 CULAR CULAR ECG CONSULTAN CONSULTAN W/LEAST TS O TS O 12 LDS I&R ONLY IMPLANTAT 97155 CARDIOVAS BRITANY ION 5 CULAR MAT PT-ACTIVA CONSULTAN VIVIAN TS O CARDIAC EVENT RECORDER O2 CONC 1 E1390 [facility] HOME HOME 85%/>02 MEDICAL MEDICAL CONC AT EQUIPME EQUIPPARKVIEW [facility] FLW RATE ECG 55964 CARDIOVAS BRITANY ROUTINE 5 CULAR MAT ECG CONSULTAN W/LEAST TS O 12 LDS I&R ONLY ECG 87948 GOMEZ DYER ROUTINE 5 [facility] ECG INC INC W/LEAST 12 LDS TRCG ONLY W/O I&R ECG 57457 CARDIOVAS BRITANY ROUTINE 5 CULAR MAT ECG CONSULTAN W/LEAST TS O 12 LDS W/I&R O2 CONC 1 E1390 [facility] 5 HOME HOME 85%/>02 MEDICAL MEDICAL CONC AT EQUIPME EQUIPPARKVIEW [facility] [place] [address] GOMEZ DYER THYROXINE 5 [facility] [place] [address] GOMEZ DYER THYROID 5 [facility] STIMULATI INC INC NG HORMONE TSH BLOOD 86341 GOMEZ DYER COUNT 5 [facility] COMPLETE INC INC AUTO&AUTO DIFRNTL WBC COLLECTIO 53574 GOMEZ DYER N VENOUS 5 [facility] [place]LO[place] [address] GOMEZ DEYR FOLIC 5 [facility] ACID INC INC SERUM CYANOCOBA 48150 GOMEZ DYER JENNY 5 [facility] VITAMIN INC INC B-12 25 20935 GOMEZ DYER HYDROXY 5 [facility] INCLUDES INC INC FRACTIONS IF PERFORMED COMPREHEN 27914 GOMEZ DYER SIVE 5 [facility] METABOLIC INC INC PANEL COMPREHEN 10734 JESSICADOWALFONSO MEADOWVIE SIVE 5 W W METABOLIC REGIONAL REGIONAL PANEL MEDICAL MEDICAL CREATINE 44375 MEADOWVIE MEADOWVIE KINASE 5 W W [place] [address] MEADOWVIE MEADOWVIE HEAD/BRAI 5 W W N W/O REGIONAL REGIONAL CONTRAST MEDICAL MEDICAL MATERIAL RADIOLOGI 00969 MEADOWVIE MEADOWVIE C 5 W W EXAMINATI REGIONAL REGIONAL ON CHEST MEDICAL MEDICAL SINGLE VIEW FRONTAL BLOOD 18020 MEADOWVIE MEADOWVIE COUNT 5 W W COMPLETE REGIONAL REGIONAL AUTO&AUT[place] [address] MEADOWVIE MEADOWVIE TROPONIN 5 W W QUANTITAT REGIONAL REGIONAL [place] MEDICAL MEDICAL INFUSION J7030 MEADOWVIE MEADOWVIE NORMAL 5 W W SAL[place] REGIONAL REGIONAL SOLUTION MEDICAL MEDICAL 1000 CC ECG 24764 [facility] ROUTINE 5 DESIRE TARAH ECG EMERGENCY W/LEAST PHYS 12 LDS I&R ONLY ECG 19140 MEADOWVIE MEADOWVIE ROUTINE 5 W W ECG REGIONAL REGIONAL W/LEAST MEDICAL MEDICAL 12 LDS TRCG ONLY W/[place] [address] MEADOWVIE MEADOWVIE INFUSION 5 W W HYDRATION REGIONAL REGIONAL INITIAL MEDICAL MEDICAL 31 MIN-[place] [address] [facility] [place] [facility] CRTD ART MEDICAL EMBOLIC G PROTECJ RADIOLOGI 89207 [facility] [place] C EXAM 5 RADIOLOGY CAR CHEST 2 VIEWS FRONTAL&[place] [address] [facility] [place] [facility] CRV 5 [facility] CRTD ART MEDICAL EMBOLIC G PROTECJ SLCTV 01281 [facility] [place] CATH 5 [facility] CAROTID/I MEDICAL NNOM ART G ANGIO XTRCRANL ART PERCUTANE [address] ANGIOPLAS TY EXTRACRAN IAL VESSELS PERCUTANE 0063 [facility] OUS [address] [place] [address] HOSPITAL INSERTION CAROTID ARTERY STENT(S) INSERTION 0045 [facility] [address] [place] [address] VASCULAR STENT PROCEDURE 0040 [facility] [place] [address] [place] [address] SINGLE VESSEL PROCEDURE 0044 [facility] [place] [address] [place] [address] VESSEL BIFURCATI ON DUPLEX 28815 ZEYAD LEXIE SCAN 5 NE HEALTH KAMILA EXTRACRAN MEDICAL IAL ART G COMPL BI STUDY THERAPEUT 20788 [facility] FRANCISCO IC 5 PHYSICIAN KAMILA PROPHYLAC S GROUP TIC/DX INJECTION SUBQ/IM INJECTION J0696 [facility] FRANCISCO 5 PHYSICIAN KAMILA CEFTRIAXO S GROUP NE SODIUM PER 250 MG INJECTION J1040 [facility] FRANCISCO 5 PHYSICIAN KAMILA METHYLPRE S GROUP DNISOLONE ACETATE 80 MG SBSQ 14720 CARDIOVAS [facility] 5 CULAR MAT CARE/DAY CONSULTAN 25 TS O MINUTES OBSERVATI 94160 [facility] ON CARE 5 [place] [address] [facility] HEAD/BRAI 5 VENANCIO N W/O RADIOLOGY CONTRAST ASSOCIAT MATERIAL RADIOLOGI 26339 [facility] C 5 EXAMINATI RADIOLOGY RADIOLOGY ON CHEST ASSOCIAT ASSOCIAT SINGLE VIEW FRONTAL [facility] 89463 CARDIOVAS BRITANY CATH 5 CULAR MAT INTRNL CONSULTAN CAROTID TS O ART ANGIO INTRCRNL ART [facility] 23909 CARDIOVAS BRITANY CATHJ EA 5 CULAR MAT 1ST ORD CONSULTAN ABDL TS O PEL/LXTR ART BRNCH DUPLEX 35762 [facility] VENANCIO EXTRACRAN RADIOLOGY IAL ART ASSOCIAT COMPL BI STUDY CATH PLMT 81732 CARDIOVAS BRITANY L HRT & 5 CULAR MAT ARTS CONSULTAN W/NJX & TS O ANGIO IMG S&I ECG 61368 CARDIOVAS BLACK JAZZMINE ROUTINE 5 CULAR ECG CONSULTAN W/LEAST TS O 12 LDS W/I&R INITIAL 44186 [facility] OBSERVATI 5 VALLEY ABR ON HEART CARE/DAY [...] PER ML O2 CONC 1 E1390 NAOMIE [facility] 5 HOME HOME 85%/>02 MEDICAL MEDICAL CONC AT EQUIPME [facility] [place] FLW RATE BLOOD 85096 KUSH CURRIE COUNT 5 CO CO [facility] AUTO&AUTO DIFRNTL WBC COMPREHEN 97685 KUSH CURRIE SIVE 5 CO [facility] PANEL COMPREHEN 83063 GOMEZ DYER SIVE 5 [facility] METABOLIC INC INC PANEL BLOOD 56027 GOMEZ GOMEZ COUNT 5 [facility] COMPLETE INC INC AUTO&AUTO DIFRNTL WBC HEMOGLOBI 44371 GOMEZ DYER N 5 [facility] GLYCOSYLA INC INC VIVIAN A1C ADMN SET A7005 YOUR YOUR W/SM VOL 5 PHARMACY PHARMACY [facility] NEBULIZR NON-DISPB L O2 CONC 1 E1390 [facility] 5 HOME HOME 85%/>02 [facility] FLW [facility]ATE INJECTION J1030 KUSH CURRIE [address] [facility] DNISOLONE ACETATE 40 MG BLOOD 48292 KUSH CURRIE COUNT 5 CO CO [facility] AUTO&AUTO DIFRNTL WBC PRESSURIZ 66603 KUSH CURRIE ED/NONPRE 5 CO CO [facility] INHALATIO N TREATMENT THERAPEUT 94155 KUSH CURRIE IC 5 CO [facility] TIC/DX INJECTION SUBQ/IM BASIC 15207 KUSH CURRIE METABOLIC 5 CO [facility] CALCIUM TOTAL COLLECTIO 48093 KUSH CURRIE N VENOUS 5 CO [facility] VENIPUNCT URE RADIOLOGI 55378 [facility] EXAM 5 DESIRE JAM CHEST 2 EMERGENCY VIEWS PHYS FRONTAL&L ATERAL O2 CONC 1 E1390 [facility] 5 HOME HOME 85%/>02 MEDICAL MEDICAL CONC AT EQUIPME EQUIPME PRSC FLW RATE OPHTH 81404 [facility] 5 GRE GRE XM&EVAL COMPRE NEW PT 1/> VST O2 CONC 1 E1390 [facility] 5 HOME HOME 85%/>02 MEDICAL MEDICAL [...] METABOLIT HOLDINGS HOLDINGS ES EACH PROCEDURE CREATININ 83728 LAB [facility] LAB DIEGO E OTHER 5 DARRYL DARRYL SOURCE HOLDINGS HOLDINGS LIPID 48011 LAB [facility] LAB DIEGO PANEL 5 DARRYL DARRYL HOLDINGS HOLDINGS GENERAL 33989 LAB D[facility] LAB DIE[facility] HEALTH 5 DARRYL DARRYL PANEL HOLDINGS HOLDINGS COLLECTIO 56351 CHENCHO ELENA N VENOUS 5 CLINIC BLOOD [...] YOUR YOUR W/SM VOL 4 PHARMACY [facility] NEBULIZR NON-DISPB L O2 CONC 1 E1390 [...] EQUIPME EQUIPME PRSC FLW RATE LOCM Q9967 [facility] 300-399 4 Y Y MG/ML HOSPITAL HOSPITAL IODINE CONCENTRA TION PER ML CT SOFT 49998 [facility] 4 Y Y [facility]K [facility] W/CONTRAS T MATERIAL CT THORAX 24908 [place] [facility] JONATAN 4 MEDICAL W/CONTRAS SERV T FOUNDATIO MATERIAL COLLECTIO 80302 CHENCHO Perera VENOUS 4 CLINIC NHI BLOOD VENIPUNCT URE COMPREHEN 79664 [facility] LAB DIEGO SIVE 4 DARRYL DARRYL METABOLIC HOLDINGS HOLDINGS PANEL BLOOD 64996 [facility] LAB DIEGO COUNT 4 DARRYL DARRYL COMPLETE [place] [address] LAB DIEGO LAB DIEGO PROSTATE 4 DARRYL DARRYL SPECIFIC [place] [address] LAB DIEGO LAB DIEGO PROSTATE 4 DARRYL DARRYL SPECIFIC [place] [address] LAB DIEGO LAB DIEGO FREE 4 DARRYL DARRYL [place]RO[place] [address] LAB DIEGO LAB DIE[facility] TRIIODOTH 4 DARRYL DARRYL YRONINE HOLDINGS HOLDINGS T3 [place] [place] [address] LAB DIEGO [facility] THYROID 4 DARRYL [...] YOUR YOUR W/SM VOL 4 PHARMACY PHARMACY flave[place] [address] LAB DIE[facility] LAB DIE[facility] THYROID 4 OF DARRYL STIMULATI DARRYL HOLDINGS NG HOLDINGS HORMONE TSH BLOOD 93759 LAB D[facility] LAB DIEGO COUNT 4 OF DARRYL COMPLETE DARRYL HOLDINGS AUTOMATED HOLDINGS COMPREHEN 40977 LAB [facility] LAB DIEGO SIVE 4 OF DARRYL METABOLIC DARRYL HOLDINGS PANEL HOLDINGS LIPID 48914 [facility] DIEGO PANEL 4 OF DARRYL DARRYL HOLDINGS HOLDINGS CREATINE 62340 LAB [facility] LAB DIEGO KINASE 4 OF DARRYL TOTAL DARRYL HOLDINGS HOLDINGS COLLECTIO 73885 CHENCHO FISCHER N VENOUS 4 CLINIC SE YOSVNAY BLOOD VENIPUNCT URE O2 CONC 1 E1390 [...] YOUR YOUR SM VOL 4 PHARMACY PHARMACY [employer] PNEUMAT NEBULIZR DISPBL IM ADM 99320 CHENCHO HUTCHINS- PRQ ID [address] [facility] [facility] SUBQ/IM NJXS 1 VACCINE IIV3 20508 CHENCOH HUTCHINS- VACCINE 4 CLINIC [facility] [place] SPLIT [...] [employer] PNEUMAT NEBULIZR DISPBL DUPLEX 08462 [employer]py[employer], i[employer]py[employer], SCAN 3 [employer] MARKET[employer] INTERN [employer] MARKET[employer] INTERN EXTRACRAN JESSIE ROMAN IAL ART CO HOS CO HOS COMPL BI STUDY LIPID 30101 LAB IDEGO LAB DIEGO PANEL 3 DARRYL DARRYL HOLDINGS HOLDINGS GENERAL 66869 LAB DIEGO LAB DIEGO HEALTH 3 DARRYL [...] AT EQUIPME EQUIPME PRSC FLW RATE COMPREHEN 82586 LAB D[facility] LAB DIEGO SIVE 3 OF AMERIC METABOLIC DARRYL HOLDING PANEL HOLDINGS LIPID 27512 LAB [facility] LAB DIEGO PANEL 3 OF AMERIC DARRYL HOLDING HOLDINGS CREATINE 74513 [facility] LAB DIEGO KINASE 3 OF AMERIC TOTAL DARRYL HOLDING HOLDINGS BLOOD 59564 LAB [facility] LAB DIEGO COUNT 3 OF AMERIC COMPLETE [place]ARR[place] [address] LAB DIEGO LAB DIEGO THYROID 3 OF AMERIC STIMULATI DARRYL HOLDING NG HOLDINGS HORMONE TSH ADMN SET A7003 YOUR YOUR SM VOL 3 PHARMACY PHARMACY NONFILTR [facility] PNEUMAT NEBULIZR DISPBL O2 CONC 1 E1390 [facility] 3 HOME HOME 85%/>02 MEDICAL MEDICAL CONC AT EQUIPME EQUIPME PRSC FLW RATE ADMN SET A7003 YOUR YOUR SM VOL 3 PHARMACY PHARMACY NONFILTR [facility] PNEUMAT NEBULIZR DISPBL LOCM Q9967 [facility] 300-399 3 MG/ML DIAGNOSTI DIAGNOSTI IODINE C CENTER, C CENTER, CONCENTRA TION PER ML CT SOFT 21966 [facility] TISSUE 3 NECK DIAGNOSTI DIAGNOSTI W/CONTRAS C CENTER, C CENTER, T MATERIAL CT THORAX 58303 [facility] 3 W/CONTRAS DIAGNOSTI DIAGNOSTI T C CENTER, C CENTER, MATERIAL O2 CONC 1 E1390 [facility] 3 HOME HOME 85%/>02 MEDICAL MEDICAL CONC AT EQUIPME EQUIPME PRSC FLW RATE ADMN SET A7003 YOUR YOUR SM VOL 3 PHARMACY PHARMACY NONFILTR [facility] PNEUMAT NEBULIZR DISPBL O2 CONC 1 E1390 [facility] 3 HOME HOME 85%/>02 MEDICAL MEDICAL CONC AT EQUIPME EQUIPME PRSC FLW RATE ADMN SET A7003 YOUR YOUR SM VOL 3 PHARMACY PHARMACY NONFILTR [facility] PNEUMAT NEBULIZR DISPBL O2 CONC 1 E1390 [facility] 3 HOME HOME 85%/>02 MEDICAL MEDICAL CONC AT EQUIPME EQUIPME PRSC FLW RATE ADMN SET A7003 YOUR YOUR SM VOL 3 PHARMACY PHARMACY NONFILTR [facility] PNEUMAT NEBULIZR DISPBL O2 CONC 1 E1390 NAOMIE CARRION [facility] 3 HOME HOME 85%/>02 MEDICAL MEDICAL CONC AT EQUIPME EQUIPME PRSC FLW RATE NEBULIZER E0570 NAOMIE AKBAR WITH 3 HOME HOME COMPRESSO MEDICAL MEDICAL R EQUIPME EQUIPME ADMN SET A7003 YOUR YOUR SM VOL 3 PHARMACY [facility] PNEUMAT NEBULIZR DISPBL CYANOCOBA 13521 LAB [facility] LAB DIEGO JENNY 3 DARRYL DARRYL VITAMIN HOLDINGS HOLDINGS B-12 [place] [address] LAB DIEGO LAB DIEGO FOLIC 3 DARRYL DARRYL ACID HOLDINGS HOLDINGS SERUM BLOOD 39622 [facility] DIEGO COUNT 3 DARRYL DARRYL COMPLETE HOLDINGS HOLDINGS AUTO&AUTO DIFRNTL WBC ADMN SET A7003 YOUR YOUR SM VOL 3 PHARMACY [facility] [place] [address] LAB DIEGO LAB DIEGO THYROID 3 DARRYL DARRYL STIMULATI HOLDINGS HOLDINGS NG HORMONE TSH LIPID 85545 [facility] DIEGO PANEL 3 DARRYL DARRYL HOLDINGS HOLDINGS COMPREHEN 64519 LAB [facility] LAB DIEGO SIVE 3 DARRYL DARRYL METABOLIC HOLDINGS HOLDINGS PANEL CT THORAX 68908 [facility] W/O 3 Y Y CONTRAST [facility] MATERIAL O2 CONC 1 E1390 NAOMIE CARRION [facility] 3 HOME HOME 85%/>02 MEDICAL MEDICAL CONC AT EQUIPME EQUIPME PRSC FLW RATE ADMN SET A7003 YOUR YOUR SM VOL 2 PHARMACY PHARMACY NONFILTR [facility] PNEUMAT NEBULIZR DISPBL O2 CONC 1 E1390 NAOMIE CARRION [facility] 2 HOME HOME 85%/>02 MEDICAL MEDICAL CONC AT EQUIPME EQUIPME PRSC FLW RATE CT THORAX 17593 ATTILI ATTILI 2 ANI ANI W/CONTRAS T MATERIAL CT SOFT 19956 RHONDA KHAN TISSUE 2 NECK W/CONTRAS T MATERIAL ADMN SET A7003 YOUR YOUR SM VOL 2 PHARMACY PHARMACY NONFILTR [facility] PNEUMAT NEBULIZR DISPBL O2 CONC 1 E1390 NAOMIE AKBAR [facility] 2 HOME HOME 85%/>02 MEDICAL MEDICAL CONC AT EQUIPME EQUIPME PRSC FLW RATE ADMN SET A7003 YOUR YOUR SM VOL 2 PHARMACY PH[facility] PNEUMAT NEBULIZR DISPBL O2 CONC 1 E1390 NAOMIE [facility]IE [facility] 2 HOME HOME 85%/>02 MEDICAL MEDICAL CONC AT EQUIPME EQUIPME PRSC FLW RATE ADMN SET A7003 YOUR YOUR SM VOL 2 PHARMACY PH[facility]AC[facility] PNEUMAT NEBULIZR DISPBL IIV3 49387 MARGO ARAGON VACCINE 2 Apr SPLIT VIRUS 0.5 ML DOSAGE IM USE IM ADM 02775 MARGO ARAGON PRQ ID 2 Apr SUBQ/IM NJXS 1 VACCINE O2 CONC 1 E1390 NAOMIE NAOMIE [facility] [place] 2 HOME HOME 85%/>02 MEDICAL MEDICAL CONC AT EQUIPME EQUIPME PRSC FLW RATE ADMN SET A7003 YOUR YOUR SM VOL 2 PHARMACY PH[facility] PNEUMAT NEBULIZR DISPBL O2 CONC 1 E1390 NAOMIE [facility]OMIE [place] 2 HOME HOME 85%/>02 MEDICAL MEDICAL CONC AT EQUIPME EQUIPME PRSC FLW RATE ADMN SET A7003 YOUR YOUR SM VOL 2 PHARMACY PHARMACY NONFIL [employer] PNEUMAT NEBULIZR DISPBL POLYSOM 44829 [employer], [employer], 6/>YRS 2 G[employer]BAL MARKETING INTERN G[employer] MARKET[employer] INTERN SLEEP 4/> JESSIE ROMAN ADDL CO HOS CO HOS YESENIA ATTND COMPRE 30873 [facility] AUDIOMETR 2 Y Y Y [facility] THRESHOLD EVAL SP RECOGNIJ TYMPANOME 85468 [facility] 2 Y Y HOSPITAL HOSPITAL O2 CONC 1 E1390 NAOMIE [facility] [place] 2 HOME HOME 85%/>02 MEDICAL MEDICAL CONC AT EQUIPME EQUIPME PRSC FLW RATE ADMN SET A7003 YOUR YOUR SM VOL 2 PHARMACY PHARMACY NONFILTR [facility] PNEUMAT NEBULIZR DISPBL O2 CONC 1 E1390 NAOMIE [facility]OMIE [place] 2 HOME HOME 85%/>02 MEDICAL MEDICAL CONC AT EQUIPME EQUIPME PRSC FLW RATE ADMN SET A7003 YOUR YOUR SM VOL 2 PHARMACY PHARMACY [employer] [facility] LLC PNEUMAT NEBULIZR DISPBL LOCM Q9967 [facility] 300-399 2 Y Y MG/ML HOSPITAL HOSPITAL IODINE CONCENTRA TION PER ML CT SOFT 01130 [facility] 2 Y Y [facility]K [facility] W/CONTRAS T MATERIAL CT THORAX 28106 [place] PAYNE 2 MEDICAL KAMILA W/CONTRAS SERV T FOUNDATIO MATERIAL CREATININ 98712 [facility] E BLOOD 2 Y Y [facility] O2 CONC 1 E1390 NAOMIE [facility]IE [place] 2 HOME HOME 85%/>02 MEDICAL MEDICAL CONC AT EQUIPME EQUIPME PRSC FLW RATE ADMN SET A7003 YOUR YOUR SM VOL 2 PHARMACY PHARMACY NONFILTR [facility] PNEUMAT NEBULIZR DISPBL O2 CONC 1 E1390 NAOMIE [facility]OMIE [place] 2 HOME HOME 85%/>02 MEDICAL MEDICAL CONC AT EQUIPME EQUIPME PRSC FLW RATE ADMN SET A7003 YOUR YOUR SM VOL 2 PHARMACY PHARMACY NONFILTR [facility] PNEUMAT NEBULIZR DISPBL LOCM Q9967 [employer], [employer], 300-399 2 G[employer] MARKET[employer] INTERN G[employer] MARKET[employer] INTER[employer] MG/ML JESSIE JESSIE IODINE CO HOS CO HOS CONCENTRA TION PER ML CTA ABDL 66628 [employer], [employer], AORTA&BI 2 GLOBAL MARKETING INTERN G[employer]BAL MARKET[employer] INTERN ILIOFEM JESSIE JESSIE W/CONTRAS CO HOS CO HOS T&POSTP CREATININ 63559 [employer], [employer], E BLOOD 2 GLOBAL MARKETING INTERN G[employer] MARKET[employer] INTERN JESSIE [place] [address] [employer], [employer], UREA 2 GLOBAL MARKETING INTERN GLOBAL MARKETING INTERN NITROGEN JESSIE JESSIE QUANTITAT CO HOS CO [...] LLC TYPE INTERFCE REPL ONLY PAIR EVAL 16497 [facility] SPEECH 2 Y Y [facility] VOICE COMMUNJ &/LOAN CLOSER Y PROC BLOOD 82940 JESSIE ROMAN COUNT 2 CO CO [facility] AUTO&AUTO DIFRNTL WBC BASIC 92151 JESSIE ROMAN METABOLIC 2 CO CO [facility] CALCIUM TOTAL RADIOLOGI 63587 [facility] C EXAM 2 NGOZI CHEST 2 RADIOLOGY VIEWS ASSOCIAT FRONTAL&L ATERAL RADIOLOGI 36096 JESSIE ROMAN C 2 CO CO [facility] ON NECK SOFT TISSUE ADMN SET A7003 YOUR YOUR SM VOL 1 PHARMACY PHARMACY NONFILTR [employer] PNEUMAT NEBULIZR DISPBL IM ADM 86266 NABEELTrever ARAGON PRQ ID 1 Apr SUBQ/IM NJXS 1 VACCINE IIV3 76186 NABEELN NABEELN VACCINE 1 Apr SPLIT VIRUS 0.5 ML DOSAGE IM USE CT SOFT 18540 AMATO AMATO TISSUE 1 JONATAN JONATAN NECK W/CONTRAS T MATERIAL CT THORAX 68921 [facility] 1 Y Y [facility] MATERIAL ADMN SET A7003 YOUR YOUR SM VOL 1 PHARMACY PHARMACY NONFILTR [employer] PNEUMAT NEBULIZR DISPBL LOCM Q9967 [facility] 300-399 1 Y Y MG/ML [facility] IODINE CONCENTRA TION PER ML VISUAL 95876 [facility] FIELD XM 1 GRE GRE UNI/BI W/INTERP EXTENDED EXAM RADEX 52548 HAGISIDRO CRAIN SPINE 1 EIDER ULICES EIDER ULICES LUMBOSACR AL MINIMUM 4 VIEWS ADMN SET A7003 YOUR YOUR SM VOL 1 PHARMACY PHARMACY NONFILTR [employer] PNEUMAT NEBULIZR DISPBL RADIOLOGI 75104 JESSIE Jimenez EXAM 1 CO CO CHEST 2 [facility] VIEWS FRONTAL&L ATERAL PRESSURIZ 79340 CHENCHO ARAGON ED/NONPRE 1 CLINIC CECILIA SSURIZED [place] [address] [facility] 1 Y Y THYROXINE HOSPITAL HOSPITAL COLLECTIO 33886 [facility] N VENOUS 1 Y Y BLOOD [facility] VENIPUNCT URE GENERAL 75835 [facility] 1 Y Y PANEL [facility] VA HOSPITALEN 85780 MEADOWVIE MEADOWVIE SIVE 1 W W METABOLIC [facility] PANEL MEDICAL MEDICAL COLLECTIO 40035 MEADOWVIE MEADOWVIE N VENOUS 1 W W BLOOD [facility]AL REGIONAL [place] [address] MEADOWVIE MEADOWVIE FREE 1 W W THYROXINE [place] [address] MEADOWVIE MEADOWVIE THYROID 1 W W STIMULATI REGIONAL REGIONAL NG MEDICAL MEDICAL HORMONE TSH BLOOD 71457 MEADOWVIE MEADOWVIE COUNT 1 W W COMPLETE REGIONAL REGIONAL AUTOMATED MEDICAL MEDICAL LARYNGOSC 08679 TIFFANIE [facility] OPY 1 MEDICAL FLEXIBLE SERV DIAGNOSTI FOUNDATIO C PET 84364 [facility] 1 [facility] CT RADIOLOGY ATTENUATI ASSOCIAT [place] [address] JESSIE ROMAN THYROID 1 CO CO STIMULATI [facility] [place] [address] JESSIE ROMAN THYROXINE 1 [place] [address] LABONE OF LABONE OF THYROID 1 [facility] [place] [address] [facility] UREA 1 Y Y NITROGEN HOSPITAL [facility] QUANTITAT [place] CREATININ 57150 [facility] E BLOOD 1 Y Y HOSPITAL HOSPITAL LARYNGOSC 91216 TIFFANIE FROST OPY 1 MEDICAL CECILIA FLEXIBLE SERV DIAGNOSTI FOUNDATIO C COLLECTIO 57259 [facility] N VENOUS 1 Y Y BLOOD [facility] VENIPUNCT URE CT SOFT 65046 [facility] FABIENNE TISSUE 1 Y NECK HOSPITAL W/CONTRAS T MATERIAL CT THORAX 51947 [facility] 1 Y Y W/[facility] T MATERIAL COLLECTIO 46751 NIKITA SHELTON N VENOUS [address] [facility] REGIONAL VENIPUNCT MEDICAL MEDICAL URE COMPREHEN 36760 NIKITA SHELTON SIVE 1 W W [address]OLIC [facility] [place] [address] NIKITA SHELTON THYROID 1 W W STIMULATI [facility]AL NG [place] [address] NIKITA HILLWALFONSO FREE 1 W W THYROXINE [facility]AL [facility] MEDICAL MEDICAL BLOOD 04068 NIKITA HILLWALFONSO COUNT 1 W W COMPLETE [facility] [place] [address] KUSH CURRIE SWALLOWIN 1 [facility] DYSFUNCTI ON&[place] [address] CURRIETAMI CURRIE SWALLOWIN 1 [facility] DYSFUNCTI ON&/[place] [address] CURRIETAMI CURRIE SWALLOWIN 1 [facility] DYSFUNCTI ON&/[place] [address] LABONE OF LABONE OF THYROID 1 [facility] STIMULATI NG HORMONE TSH COLLECTIO [address] [facility] N VENOUS 1 ETH[place] [address] CURRIETAMI CURRIE SWALLOWIN 1 [facility] DYSFUNCTI ON&/[place] [address] CURRIETAMI CURRIE SWALLOWIN 1 [facility] DYSFUNCTI ON&[place] [address] LABONE OF LABONE OF THYROID 1 [employer] [place] [address] CURRIE CURRIE SWALLOWIN 1 [facility] DYSFUNCTI ON&/[place] [address] CURRIE CURRIE SWALLOWIN 1 [facility] DYSFUNCTI ON&/ORAL FUNCJ FEEDING LARYNGOSC 82540 [place] S[facility] OPY 1 MEDICAL CECILIA [place] [address] KUSH CURRIE SWALLOWIN 0 [facility] DYSFUNCTI ON&/[place] [address] KUSH CURRIE SWALLOWIN 0 [facility] DYSFUNCTI ON&/[place] [address] NIKITA SHELTON THYROID 0 W W STIMULATI [facility] [place] [address] NIKITA HILLWALFONSO FREE 0 W W THYROXINE [facility] MEDICAL BLOOD 82763 NIKITA MEADOWVIE COUNT 0 W W COMPLETE [facility] AUTOMATED MEDICAL MEDICAL COLLECTIO 67250 NIKITA SHELTON N VENOUS 0 W W BLOOD [facility] VENIPUNCT MEDICAL MEDICAL URE COMPREHEN 55247 NIKITA SHELTON SIVE [address] [facility] [place] [address] KUSH CURRIE SWALLOWIN 0 [facility] HOSPITAL DYSFUNCTI ON&/[place] [address] KUSH CURRIE SWALLOWIN 0 [facility] HOSPITAL DYSFUNCTI ON&/[place] [address] KUSH CURRIE SWALLOWIN 0 [facility] HOSPITAL DYSFUNCTI ON&/[place] [address] KUSH CURRIE SWALLOWIN 0 [facility]OS[facility] DYSFUNCTI ON&/[place] [address] KUSH CURRIE SWALLOWIN 0 [facility] DYSFUNCTI ON&/[place] [address] KUSH CURRIE SWALLOWIN 0 [facility] DYSFUNCTI ON&/ORAL FUNCJ FEEDING TAPE A4450 KUSH CURRIE NON-WATER 0 CO HOSP CO HOSP PROOF PER MED EQUIP MED EQUIP 18 & & SQUARE INCHES GAUZE A6402 KUSH CURRIE NON-IMPRE 0 CO HOSP CO HOSP G STERL MED EQUIP MED EQUIP 16 SQ/< & & W/O ADHES BORDR ENTERAL B4034 KUSH CURRIE FEEDING 0 CO HOSP [place] HOSP SUPPLY MED EQUIP MED EQUIP KIT; & & [place] [address] KUSH CURRIE SWALLOWIN 0 [facility] HOSPITAL DYSFUNCTI ON&/[place] [address] KUSH CURRIE SWALLOWIN 0 [facility]OSP[facility] DYSFUNCTI ON&/[place] [address] KUSH CURRIE SWALLOWIN 0 [facility] DYSFUNCTI ON&/[place] [address] KUSH CURRIE SWALLOWIN 0 [facility] DYSFUNCTI ON&/ORAL FUNCJ FEEDING PET 02150 [facility] [address] RADIOLOGY ATTENUATI [place] [address] [facility] SWALLOWIN 0 [facility] DYSFUNCTI ON&[place] [address] [facility] SWALLOWIN 0 [facility] DYSFUNCTI ON&/[place] [address] [facility] SWALLOWIN 0 [facility] DYSFUNCTI ON&/[place] [address] [facility] SWALLOWIN 0 [facility] DYSFUNCTI ON&/[place] [address] [facility] SWALLOWIN 0 [facility] DYSFUNCTI ON&/ORAL FUNCJ FEEDING ENTERAL B4034 [facility] FEEDING 0 [facility] SUPPLY MED EQUIP MED EQUIP KIT; & & SYRINGE FED PER DAY TAPE [id number] [facility] NON-WATER 0 [facility] PROOF PER MED EQUIP MED EQUIP 18 & & [place] [address] [facility] SWALLOWIN 0 [facility] DYSFUNCTI ON&/[place] [address] [facility] IRON 0 [facility] PREALBUMI 33640 [facility] N 0 [place] [address] [facility] CH[facility] ZINC 0 JESSIE ROMAN [facility] [address] [facility] HEALTH 0 [facility] PANEL CYANOCOBA 68379 [facility] JENNY 0 [facility] VITAMIN B-12 [place] [address] [facility] FOLIC 0 [facility] [place] [address] [facility] SWALLOWIN 0 [facility] DYSFUNCTI ON&/ORAL FUNCJ FEEDING CULTURE 32881 JESSIE ROMAN BACTERIAL 0 CO [facility] QUANTTATI VE COLONY COUNT URINE ANTIBODY 05178 JESSIE ROMAN HELICOBAC 0 CO CO TER [facility] PYLORI BLOOD 55661 JESSIE ROMAN COUNT 0 CO CO SMEAR [facility] MCRSCP W/[place] [address] JESSIE ROMAN LIPASE 0 CO [facility] COMPREHEN 11075 JESSIE ROMAN SIVE 0 CO CO METABOLIC [facility] PANEL URNLS DIP 10958 JESSIE LABORATOR 0 CO Y STICK/TAB HOSPITAL CORPORATI LET ON [place] [address] JESSIE ROMAN AMYLASE 0 CO [facility] COLLECTIO 93245 JESSIE LABORATOR N VENOUS 0 CO Y BLOOD [facility] CORPORATI VENIPUNCT ON OF AM URE THER 03509 JESSIE ROMAN PROPH/DX 0 CO CO NJX IV [facility] PUSH SINGLE/1S T SBST/[place] [address] [facility] SWALLOWIN 0 CO CO [facility] DYSFUNCTI ON&[place] [address] [facility] CUR[facility] SWALLOWIN 0 CO CO [facility] DYSFUNCTI ON&/[place] [address] [facility] SWALLOWIN 0 CO CO [facility] DYSFUNCTI ON&/ORAL FUNCJ FEEDING MOTION 25730 [facility]E FLUOR 0 CO CO [facility] SWLNG FUNCJ C/V REC SWALLOWIN 17061 JESSICA WELDON FUNCJ 0 NGOZI W/CINERAD RADIOLOGY IOGRAPY/[place] [address] [facility] CO CO G [facility] DYSFUNCTI ON&/ORAL FUNCJ FEEDING EVAL 36818 [facility] ORAL&PHAR 0 CO CO YNGEAL [facility] SWLNG FUNCJ BLOOD 85397 NIKITA HILLWALFONSO COUNT 0 W W COMPLETE [facility] AUTOMATED MEDICAL MEDICAL COLLECTIO 23838 NIKITA SHELTON N VENOUS 0 W W BLOOD [facility] [place] [address] JESSIE JESSIE INFUSION 0 CO CO HYDRATION [facility] INITIAL 31 MIN-1 [place] [address] [facility] CO HYDRATION [facility] [place] [place] [address] JESSIE JESSIE INFUSION 0 CO CO THERAPY/P [facility] ROPHYLAXI S /DX 1ST TO 1 HR LARYNGOSC 507[address] [facility] OPY W/WO 0 Y Y TRACHEOSC [facility] OPY W/MICRO/T ELESCOPE ANES [address] [place] [facility] ESOPH 0 MEDICAL CORY THYRD SERV LARYNX FOUNDATIO TRACH & LYMPH NECK 1YR ESOPHAGOS 02689 [place] [facility] COPY 0 MEDICAL CECILIA FLEXIBLE SERV TRANSORAL FOUNDATIO DIAGNOSTI C DILATION 46502 [facility] ESOPH 0 Y Y UNGUIDED [facility] SOUND/YVETTE GIE 1/MULT PASS RINGERS J7120 [facility] LACTATE 0 Y Y INFUSION [facility] UP TO 1000 CC INJECTION J2250 [facility] 0 Y Y MIDAZOLAM [facility] HCL PER 1 MG INJECTION J1100 [facility] 0 Y Y DEXAMETHO [facility] SONE SODIUM PHOSPHATE 1 MG INJECTION J2710 [facility] 0 Y Y NEOSTIGMI [facility] NE METHYLSUL FATE UP TO 0.5 MG INJECTION J3010 [facility] FENTANYL 0 Y Y CITRATE [facility] 0.1 MG INJECTION J0330 [facility] 0 Y Y SUCCINYLC [facility] HOLINE CHLORIDE UP TO [address] SOFT 19915 [facility] TISSUE 0 Y Y NECK [facility] W/CONTRAS T MATERIAL COLLECTIO 42245 [facility] N VENOUS 0 Y Y BLOOD [facility] VENIPUNCT URE CT THORAX 93981 [facility] 0 Y Y W/CONTRAS [facility] T MATERIAL CREATININ 29795 [facility] E BLOOD 0 [place] [address] [facility] UREA 0 Y Y NITROGEN [facility] QUANTITAT [place] MOTION 12818 [facility] FLUOR 0 CO CO EVAL [facility] SWLN FUNCJ C/V REC SWALLOWIN 24810 JESSICA Benson FUNCJ 0 NGOZI W/CINERAD RADIOLOGY IOGRAPY/[place] [address] JESSIE ROMAN INFUSION 0 CO CO THERAPY/P [facility] ROPHYLAXI S /DX 1ST TO 1 [place] [address] JESSIE ROMAN INFUSION 0 CO CO THERAPY [facility] PROPHYLAX IS/[place] [address] JESSIE ROMAN INFUSION 0 CO CO THERAPY [facility] [place] [address] JESSIE BURRELLS INFUSION 0 CO CO THERAPY/P [facility] ROPHYLAXI S /DX 1ST TO 1 [place] [address] JESSIE ROMAN INFUSION 0 CO CO THERAPY/P [facility] ROPHYLAXI S /DX 1ST TO [place] [address] JESSIE BURRELLS INFUSION 0 CO CO THERAPY [facility] [place] [address] JESSIE BURRELLS INFUSION 0 CO CO THERAPY/P [facility] ROPHYLAXI S /DX 1ST TO 1 [place] [address] JESSIE BURRELLS INFUSION 0 CO CO THERAPY [facility] PROPHYLAX IS/DX EA HOUR BLOOD 77796 JESSIE ROMAN COUNT 0 CO CO COMPLETE [facility] AUTO&AUTO DIFRNTL WBC CULTURE 37153 JESSIE ROMAN BACTERIAL 0 CO [place] BLOOD [facility] AEROBIC W/ID ISOLATES RADIOLOGI 30317 JESSIE ROMAN C EXAM 0 CO CO CHEST 2 HOSPITAL HOSPITAL VIEWS FRONTAL&L ATERAL COLLECTIO 64556 JESSIE ROMAN N VENOUS 0 CO [facility] VENIPUNCT URE URNLS DIP 26641 JESSIE JESSIE 0 CO CO STICK/TAB HOSPITAL HOSPITAL LET REAGENT AUTO MICROSCOP Y COMPREHEN 39969 JESSIE SANCHEZOLAS SIVE 0 CO CO METABOLIC [facility] PANEL RESP E0600 NAOMIE NAOMIE SUCTION 0 HOME MED HOME MED PUMP HOME EQUIP. L EQUIP. L MODEL PRTBLE/ST ATION ELEC TAPE A4450 [facility] NON-WATER 0 CO HOSP CO HOSP PROOF PER MED EQUIP MED EQUIP 18 & & SQUARE INCHES COMPREHEN 15748 MEADOWVIE MEADOWVIE SIVE 0 W W [facility] COLLECTIO 86325 JESSICAANGELA LOPEZWVIE N VENOUS 0 W W BLOOD [facility] VENIPUNCT [facility] BLOOD 90923 MEADOWVIE MEADOWVIE COUNT 0 W [place] [facility] [place] [address] ONCOLOGY JAJA, INFUSION 0 HEMATOLOG BRITTANY M HYDRATION Y CARE INITIAL INC 31 MIN-1 HOUR BLOOD 09149 [facility] COUNT 0 CO [facility] AUTO&AUTO DIFRNTL WBC COMPREHEN 19021 KUSH CURRIE SIVE 0 CO [facility] PANEL RADEX 47525 [facility] SPINE 0 EIDER, LUMBOSACR RADIOLOGY NANDINI AL 2/3 K VIEWS ASSOCIATE S PSC SBSQ 10989 [facility] 0 CLINIC CHAMP CARE/DAY PSC 15 MINUTES RADIOLOGI 31810 EMILIANOBarbara GALO EXAM 0 CECI C CHEST 2 RADIOLOGY VIEWS FRONTAL&L ASSOCIATE ATERAL S PSC OBSERVATI 04763 [facility] ON CARE 0 , MINOR , MINOR DISCHARGE MANAGEMEN T INITIAL 43884 [facility] GR OBSERVATI 0 , MINOR , MINOR ON CARE/DAY 70 MINUTES HOSPITAL G0378 JESSIE ROMAN OBSERVATI 0 CO CO ON HOSPITAL HOSPITAL SERVICE PER HOUR RADEX 60882 SMYRNA MILLS WELDON, ABDOMEN 1 0 CECI Jimenez RADIOLOGY ANTEROPOS TERIOR ASSOCIATE VIEW S PSC RADEX ABD 08996 JESSIE ROMAN COMPL 0 CO CO AQT ABD [facility] W/S/E/D VIEWS 1 VIEW CH COLLECTIO 13219 JESSIE ROMAN N VENOUS 0 CO CO BLOOD [facility] VENIPUNCT URE RADIOLOGI 72133 SMYRNA MILLS SHIRAZ, C 0 CECI Jimenez EXAMINATI RADIOLOGY ON CHEST SINGLE ASSOCIATE VIEW S PSC FRONTAL COMPREHEN 37258 JESSIE ROMAN SIVE 0 CO CO METABOLIC [facility] PANEL BLOOD 09688 JESSIE ROMAN COUNT 0 CO CO COMPLETE [facility] AUTO&AUTO DIFRNTL WBC BLOOD 13440 JESSIE ROMAN COUNT 0 CO CO SMEAR [facility] MCRSCP W/MNL DIFRNTL WBC COUNT THROMBOPL 40026 JESSIE ROMAN ASTIN 0 CO CO TIME [facility] PARTIAL PLASMA/WH OLE BLOOD PROTHROMB 60750 JESSIE ROMAN IN TIME 0 [place] [address] JESSIE ROMAN INFUSION 0 CO CO THERAPY/P HOSPITAL [facility] ROPHYLAXI S /DX 1ST TO 1 HR THER 49144 JESSIE ROMAN PROPH/DX 0 CO CO NJX IV [facility] PUSH SINGLE/1S T SBST/[place] [address] JESSIE ROMAN INFUSION 0 CO CO HYDRATION [facility] INITIAL 31 MIN-1 HOUR RADJ DLVR 04375 [place] INA 3/> 0 MEDICAL PRA AREAS SERV CUSTOM FOUNDATIO BLKING 6-10MEV RADJ DLVR 21569 [place] I[place] 3/> 0 MEDICAL PRA AREAS SERV CUSTOM FOUNDATIO BLKING 6-10MEV RADIATION 51710 [place] INA 0 MEDICAL PRA TREATMENT SERV FOUNDATIO MANAGEMEN T 5 TREATMENT S RADJ DLVR 87874 [place] I[place] 3/> 0 MEDICAL PRA AREAS SERV CUSTOM FOUNDATIO BLKING 6-10MEV RADJ DLVR 39978 [place] I[place] 3/> 0 MEDICAL PRA AREAS SERV CUSTOM FOUNDATIO BLKING 6-10MEV THERAPEUT 13994 [place] I[place] IC 0 MEDICAL PRA RADIOLOGY SERV PORT FOUNDATIO IMAGES(S) RADIATION 40364 [place] INA 0 MEDICAL PRA TREATMENT SERV FOUNDATIO MANAGEMEN T 5 TREATMENT S COMPREHEN 75890 NIKITA LOPEZWALFONSO SIVE 0 W W [facility] COLLECTIO 12656 JESSICAANGELA LOPEZWVIE N VENOUS 0 W W BLOOD [facility] CONTINUIN 60722 [place] I[place] G MEDICAL 0 MEDICAL PRA PHYSICS SERV CONSLTJ FOUNDATIO MT WK THERAPEUT 42374 ONCOLOGY JAJA CHR IC 0 HEMATOLOG INJECTION Y CARE [place] [address] ONCOLOGY JAJA CHR INFUSION 0 HEMATOLOG THER Y CARE IN PROPH ADDL SEQUENTIA L [place] [address] ONCOLOGY JAJA CHR INFUSION 0 HEMATOLOG HYDRATION Y CARE IN EACH ADDITIONA L HOUR BLOOD 05505 NIKITA SHELTON COUNT 0 W W COMPLETE [facility] INJECTION J2469 ONCOLOGY ONCOLOGY 0 HEMATOLOG HEMATOLOG [place] Y CARE IN Y CARE IN OCTAVIANO HCL 25 MCG INJECTION J9060 ONCOLOGY JAJA CHR 0 HEMATOLOG CISPLATIN Y CARE IN POWDER OR SOLUTION 10 MG CHEMOTX 17459 ONCOLOGY JAJA CHR ADMN IV 0 HEMATOLOG NFS TQ UP Y CARE IN 1 HR SBST/DRUG RADJ DLVR 38125 [place] INA 3/> 0 MEDICAL PRA AREAS SERV CUSTOM FOUNDATIO BLKING 6-10MEV RADJ DLVR 46627 [place] I[place] 3/> 0 MEDICAL PRA AREAS SERV CUSTOM FOUNDATIO BLKING 6-10MEV CONTINUIN 11327 [place] G MEDICAL 0 MEDICAL PRA PHYSICS SERV CONSLTJ FOUNDATIO MT WK RADJ DLVR 07603 [place] I[place] 3/> 0 MEDICAL PRA AREAS SERV CUSTOM FOUNDATIO BLKING 6-10MEV RADJ DLVR 36939 [place] I[place] 3/> 0 MEDICAL PRA AREAS SERV CUSTOM FOUNDATIO BLKING 6-10MEV RADJ DLVR 05348 [place] I[place] 3/> 0 MEDICAL PRA AREAS SERV CUSTOM FOUNDATIO BLKING 6-10MEV RADIATION 55430 [place] INA 0 MEDICAL PRA TREATMENT SERV FOUNDATIO MANAGEMEN T 5 TREATMENT S RADJ DLVR 47073 [place] I[place] 3/> 0 MEDICAL PRA AREAS SERV CUSTOM FOUNDATIO BLKING 6-10MEV GENERAL 44826 [facility] 0 [facility] PANEL LIPID 69049 [facility] PANEL 0 [facility] INC RADJ DLVR 82258 [place] 3/> 0 MEDICAL PRA AREAS SERV CUSTOM FOUNDATIO BLKING 6-10MEV BASIC 03300 [place] RADIATION 0 MEDICAL PRA SERV DOSIMETRY FOUNDATIO CALCULATI ON TELETHERA 29907 [place] PY 0 MEDICAL PRA ISODOSE SERV PLAN FOUNDATIO COMPLETE THER RAD 80339 [place] SIMULAJ-A 0 MEDICAL PRA IDED SERV FIELD FOUNDATIO SETTING SIMPLE CONTINUIN 57683 [place] G MEDICAL 0 MEDICAL PRA [place]YSICS [place] [address] [place] DEVICES 0 MEDICAL PRA DESIGN & SERV CONSTRUCT FOUNDATIO ION COMPLEX RADJ DLVR 36849 [place] 3/> 0 MEDICAL PRA AREAS SERV CUSTOM FOUNDATIO BLKING 6-10MEV RADIATION 06949 [place] INA 0 MEDICAL PRA TREATMENT SERV FOUNDATIO MANAGEMEN T 5 TREATMENT S RADJ DLVR 19818 [place] ZHANE, 3/> 0 MEDICAL DAVID AREAS SERV CUSTOM FOUNDATIO BLKING 6-10MEV RADJ DLVR 21284 [place] ZHANE, 3/> 0 MEDICAL DAVID AREAS SERV CUSTOM FOUNDATIO BLKING 6-10MEV CONTINUIN 03109 [place] I[place] G MEDICAL 0 MEDICAL PRA PHYSICS SERV CONSLTJ FOUNDATIO MT WK RADJ DLVR 70028 [place] I[place] 3/> 0 MEDICAL PRA AREAS SERV CUSTOM FOUNDATIO BLKING 6-10MEV RADIATION 33509 [place] INA 0 MEDICAL PRA TREATMENT SERV FOUNDATIO MANAGEMEN T 5 TREATMENT S RADJ DLVR 96415 [place] I[place] 3/> 0 MEDICAL PRA AREAS SERV CUSTOM FOUNDATIO BLKING 6-10MEV COMPREHEN 49539 MEADOWVIE MEADOWVIE SIVE 0 W W [facility] BASIC 37631 [place] I[place] RADIATION 0 MEDICAL PRA SERV DOSIMETRY FOUNDATIO CALCULATI ON TELETHERA 58774 [place] PY 0 MEDICAL PRA ISODOSE SERV PLAN FOUNDATIO COMPLETE COLLECTIO 45362 MEADALIAALFONSO LOPEZWVIE N VENOUS 0 W W BLOOD [facility] B[facility] 48109 MEADOWVIE MEADOWVIE COUNT 0 W W COMPLETE [facility] RADJ DLVR 65490 [place] I[place] 3/> 0 MEDICAL PRA AREAS SERV CUSTOM FOUNDATIO BLKING 6-10MEV RADJ DLVR 62227 [place] I[place] 3/> 0 MEDICAL PRA AREAS SERV CUSTOM FOUNDATIO BLKING 6-10MEV LARYNGOSC 75995 [place] [facility] OPY 0 MEDICAL , HANNAH FLEXIBLE SERV DIAGNOSTI FOUNDATIO C RADJ DLVR 97986 [place] I[place] 3/> 0 MEDICAL PRA AREAS SERV CUSTOM FOUNDATIO BLKING 6-10MEV RADJ DLVR 37560 [place] I[place] 3/> 0 MEDICAL PRA AREAS SERV CUSTOM FOUNDATIO BLKING 6-10MEV THERAPEUT 24486 [place] IC 0 MEDICAL PRA RADIOLOGY SERV PORT FOUNDATIO IMAGES(S) CONTINUIN 38684 [place] G MEDICAL 0 MEDICAL PRA PHYSICS SERV CONSLTJ FOUNDATIO MT WK RADJ DLVR 61914 [place] I[place] 3/> 0 MEDICAL PRA AREAS SERV CUSTOM FOUNDATIO BLKING 6-10MEV RADIATION 97570 [place] INA 0 MEDICAL PRA TREATMENT SERV FOUNDATIO MANAGEMEN T 5 TREATMENT S RADJ DLVR 75749 [place] I[place] 3/> 0 MEDICAL PRA AREAS SERV CUSTOM FOUNDATIO BLKING 6-10MEV RADJ DLVR 99409 [place] I[place] 3/> 0 MEDICAL PRA AREAS SERV CUSTOM FOUNDATIO BLKING 6-10MEV RADJ DLVR 74692 [place] I[place] 3/> 0 MEDICAL PRA AREAS SERV CUSTOM FOUNDATIO BLKING 6-10MEV RADJ DLVR 22666 [place] I[place] 3/> 0 MEDICAL PRA AREAS SERV CUSTOM FOUNDATIO BLKING 6-10MEV THERAPEUT 44266 [place] I[place] IC 0 MEDICAL PRA RADIOLOGY SERV PORT FOUNDATIO IMAGES(S) CONTINUIN 35263 [place] G MEDICAL 0 MEDICAL PRA PHYSICS SERV CONSLTJ FOUNDATIO MT WK RADIATION 28026 [place] INA 0 MEDICAL PRA TREATMENT SERV FOUNDATIO MANAGEMEN T 5 TREATMENT S RADJ DLVR 08402 [place] 3/> 0 MEDICAL PRA AREAS SERV CUSTOM FOUNDATIO BLKING 6-10MEV RADJ DLVR 79134 [place] 3/> 0 MEDICAL PRA AREAS SERV CUSTOM FOUNDATIO BLKING 6-10MEV RADJ DLVR 64809 [place] I[place] 3/> 0 MEDICAL PRA AREAS SERV CUSTOM FOUNDATIO BLKING 6-10MEV RADJ DLVR 92102 [place] 3/> 0 MEDICAL PRA AREAS SERV CUSTOM FOUNDATIO BLKING 6-10MEV RADJ DLVR 71874 [place] 3/> 0 MEDICAL PRA AREAS SERV CUSTOM FOUNDATIO BLKING 6-10ME[place] [address] [place] DEVICES 0 MEDICAL PRA DESIGN & SERV CONSTRUCT FOUNDATIO ION COMPLEX THER RAD 73976 [place] SIMULAJ-A 0 MEDICAL PRA IDED SERV FIELD FOUNDATIO SETTING SIMPLE RADIATION 27218 [place] 0 MEDICAL PRA TREATMENT SERV FOUNDATIO [place]GEMEN T [address] [place] [address] [place] MOJGAN GUIDANCE 0 MEDICAL EDU RADIATION SERV THERAPY FOUNDATIO FLDS PLACEMENT CONTINUIN 12607 [place] G MEDICAL 0 MEDICAL PRA PHYSICS SERV CONSLTJ FOUNDATIO MT WK ANES 57900 [place] [facility]ITAL STEVIE ESOPH 0 MEDICAL THYRD SERVICES LARYNX TRACH & LYMPH NECK 1YR LARYNGOSC 77080 [place] OPY 0 MEDICAL CECILIA W/BIOPSY SERV MICROSCOP FOUNDATIO E/TELESCO PE EGD 28514 [place] CHRISTINA PERCUTANE 0 MEDICAL RICH OUS SERV PLACEMENT [place] [address] [place] HDZ SURG 0 MEDICAL VARGAS PATHOLOGY SERV FOUNDATIO GROSS&KAMILA ROSCOPIC EXAM L HRT 31787 [place] LINO CATHETERI 0 MEDICAL CALEB ZATION SERV RETROGRAD FOUNDATIO E BRACHIAL PERQ INJECTION 07692 [place] CARDIAC 0 MEDICAL CALEB CATHJ L SERV VENTR/L [place] [address] [place] C-CATHJ 0 MEDICAL CALEB F/SLCTV C SERV ANGRPH FOUNDATIO I SI&R 67152 [place] F/NJX PX 0 MEDICAL CALEB DURING SERV C-CATHJ FOUNDATIO VENTR&/AT R ANGRPH I SI&R 66172 [place] F/NJX PX 0 MEDICAL CALEB DURING SERV C-CATHJ FOUNDATIO PULM&/OR SELECT ECG 16307 [facility] ROUTINE 0 Y Y ECG HOSPITAL HOSPITAL W/LEAST 12 LDS TRCG ONLY W/O I&R ECG 80480 [place] MOJICA ROUTINE 0 MEDICAL NAN ECG SERV W/LEAST FOUNDATIO 12 LDS I&R ONLY CT SOFT 41109 [place] AMATO TISSUE 0 MEDICAL JONATAN NECK SERV W/CONTRAS FOUNDATIO T MATERIAL CT THORAX 79434 [place] ATTILI 0 MEDICAL ANI W/CONTRAS SERV T FOUNDATIO MATERIAL COLLECTIO 56393 [facility] N VENOUS 0 Y Y BLOOD [facility] VENIPUNCT URE COMPREHEN 56429 [facility] SIVE 0 Y Y METABOLIC [facility] PANEL BLOOD 39612 [facility] COUNT 0 Y Y COMPLETE [facility] AUTOMATED PROTHROMB 90103 [facility] IN TIME 0 Y Y [facility] THROMBOPL 34977 [facility] ASTIN 0 Y Y TIME [facility] PARTIAL PLASMA/[place] [address] [facility] FREE 0 Y Y THYROXINE [facility] [place] [address] [facility] THYROID 0 Y Y STIMULATI [facility] NG HORMONE T[place] THORAX [address] [place] [address] JOAQUÍN S W/CONTRAS RADIOLOGY T MATERIAL ASSOCIATE S PSC ADMN SET A7003 YOUR YOUR SM VOL 8 PHARMACY PHARMACY NONFILTR [facility] PNEUMAT NEBULIZR DISPBL THER 91263 JESSIE ROMAN PROPH/DX 8 [facility][1] SUBQ/IM THER 78636 JESSIE ROMAN PROPH/DX 8 [facility][1] SUBQ/IM THER 12234 JESSIE ROMAN PROPH/DX 8 [facility][1] SUBQ/IM RADIOLOGI 78349 JESSIE ROMAN C EXAM 8 [facility] CHEST [address] [place] [address] VIEWS FRONTAL&L ATERAL O2 CONC 1 E1390 [facility] 8 HOME MED HOME MED 85%/>02 EQUIP. EQUIP. CONC AT [employer] [facility] FLW RATE O2 CONC 1 E1390 [facility] 8 HOME MED HOME MED 85%/>02 EQUIP. EQUIP. CONC AT [employer] [facility] FLW RATE O2 CONC 1 E1390 [facility] 8 HOME MED HOME MED 85%/>02 EQUIP. EQUIP. CONC AT [employer] [facility] FLW RATE LIPID 89985 [facility] PANEL 8 [facility] CYANOCOBA 61320 [facility] JENNY 8 [facility] VITAMIN B-12 COMPREHEN 39751 [facility] SIVE 8 [facility] [place] [address] [facility] THYROID 8 [facility] STIMULATI NG HORMONE TSH THER 55477 JESSIE ROMAN PROPH/DX 8 CO CO NJX [facility] SUBQ/IM ECG 77086 JESSIE ROMAN ROUTINE 8 [place] ECG [facility] W/LEAST 12 LDS TRCG ONLY W/O I&R DEMO&/VINICIO 44638 JESSIE ROMAN L OF PT 8 [place] UTILIZ [facility] AERSL GEN/NEB/I NHLR/[place] [address] JESSIE ROMAN WALL 8 [facility] FACILITAT [facility] E LNG FUNCJ 1 DEMO&/VINICIO L O2 CONC 1 E1390 [facility] 8 HOME MED HOME MED 85%/>02 EQUIP. EQUIP. CONC AT [employer] [facility] FLW RATE ADMN SET A7005 YOUR YOUR W/SM VOL 8 PHARMACY PHARMACY [facility] [address] NEBULIZR NON-DISPB L O2 CONC 1 E1390 [facility] PORT 8 HOME MED HOME MED 85%/>02 EQUIP. EQUIP. CONC AT [employer] [facility] FLW RATE ADMN SET A7003 YOUR YOUR SM VOL 8 PHARMACY PHARMACY NONFILTR [facility] PNEUMAT NEBULIZR DISPBL O2 CONC 1 E1390 [facility] 8 HOME MED HOME MED 85%/>02 EQUIP. EQUIP. CONC AT [employer] PRS FLW RATE Encounters Encounter Start End Date Code Location Performer Type Date OFFICE 44726 [facility] OUTPATIEN 7 7 PHYSICIAN T VISIT S GROUP 15 MINUTES HOSPITAL JENNINGS - 7 7 [facility] 42130 [facility] DE[facility] 7 7 [facility] HIGH SEVERITY& THREAT [facility] CA[facility]DENS[facility] - 7 7 [facility]PITAL GOMEZ - 7 7 [facility] GOMEZ - 7 7 [facility] OUTPATIEN [facility] [address] INPATIENT HOSPITAL [facility] - 7 7 [facility] EMERGENCY 29653 [facility] 7 7 DESIRE VISIT EMERGENCY HIGH PHYS SEVERITY& THREAT [facility]ENS[facility] - 7 7 [facility] - 7 7 [facility] GOME[facility] - 7 7 [facility] OUTPATIEN [facility] T OFFICE 86974 [facility] 7 7 PHYSICIAN T VISIT S GROUP 15 MINUTES OFFICE 96737 [facility] 7 7 [facility] T VISIT INC 10 MINUTES HOSPITAL GOMEZ - 7 7 [facility] OUTPATIEN [facility] T [facility]ICE 61641 [facility] 7 MD SUNNY, T VISIT PSC 15 MINUTES HOSPITAL GOMEZ - 7 7 [facility] 16470 [facility] 7 7 PHYSICIAN T VISIT S GROUP 15 MINUTES HOSPITAL CANADENSIS - 7 7 [facility] T EMERGENCY [address] T VISIT HIGH/URGE NT SEVERITY EMERGENCY 05435 [facility]IRE VISIT EMERGENCY HIGH PHYS SEVERITY& THREAT [facility] [place] [address] 7 [facility] T EMERGENCY [address] HOSPITAL T VISIT HIGH/URGE NT SEVERITY [facility]OSPITAL [facility] - 7 7 [facility] OUTPATIEN INC T OFFICE 35321 [facility] OUTPATIEN 7 7 PHYSICIAN T VISIT S GROUP 15 MINUTES HOSPITAL GOME[facility] - 7 7 [facility] OUTPATIEN INC T OFFICE 58013 [facility] OUTPATIEN 7 7 PHYSICIAN T VISIT S GROUP 25 MINUTES HOSPITAL [facility] - 7 7 [facility] OUTPATIEN INC T [facility]OSPITAL [facility] - 7 7 [facility] OUTPATIEN INC T OFFICE 73738 [facility] OUT[facility]IEN 7 7 [facility] T VISIT INC 10 MINUTES OFFICE 66958 [facility] OUTPATIEN 7 7 PHYSICIAN T VISIT S GROUP 25 MINUTES HOSPITAL [facility] - 7 7 [facility] OUTPATIEN INC T [facility]OSPITAL [facility] - 7 7 [facility] OUTPATIEN INC T OFFICE 63934 [facility] 7 7 [facility] T VISIT INC 10 MINUTES OFFICE 59559 [facility] 7 7 MD SUNNY, T VISIT PSC 15 MINUTES HOSPITAL [facility] - 6 6 [facility] OUTPATIEN INC T OFFICE 40417 [facility] OUTPATIEN 6 6 PHYSICIAN T VISIT S GROUP 15 MINUTES OFFICE 94296 [facility] OUTPATIEN 6 6 PHYSICIAN KAMILA T VISIT S GROUP 15 MINUTES HOSPITAL [facility] - 6 6 [facility] OUTPATIEN INC T OFFICE 02548 ALONDRA KOEHLER OUTPATIMOJGAN 6 6 MD T VISIT 10 MINUTES HOSPITAL [facility] - 6 6 [facility] OUTPATIEN INC T HOSPITAL [facility] - 6 6 [facility] OUTPATIEN [facility] T OFFICE 05712 [facility] OUTPATIEN 6 6 PHYSICIAN KAMILA T VISIT S GROUP 25 MINUTES OFFICE 78076 [facility] OUTPATIEN 6 6 PHYSICIAN KAMILA T VISIT S GROUP 15 MINUTES HOSPITAL [facility] - 6 6 [facility] OUTPATIEN [facility] - 6 6 [facility] 80500 [facility] 6 6 [facility] H[facility] T [address] CURRIE - 6 6 [facility] T OFFICE 94007 [facility] 6 6 PHYSICIAN KAMILA T VISIT S GROUP [address]ES [address] [facility] 6 6 Y MEDICAL MU T VISIT CLINIC 15 [facility] GOMEZ - 6 6 [facility] 31445 [facility] [address] [facility] HIGH SEVERITY& THREAT [facility] CURRIE [facility] 6 6 [facility] T OFFICE 16117 [facility] PHYSICIAN KAMILA T VISIT S GROUP 15 MINUTES [facility] GOMEZ - 6 6 [facility] 6 6 [facility] T OFFICE 96557 [facility] 6 6 Y T [facility]ISIT 5 H[facility]PITAL [facility] UNIVERSIT - 6 6 [facility] GOMEZ [facility] 6 6 [facility] 6 [facility] GOMEZ - 6 6 [facility] OUTPATIEN INC [facility] GOMEZ [facility] 6 6 [facility] OUTPATIEN [facility] T OFFICE 38633 [facility] OUTPATIEN 6 6 PHYSICIAN KAMILA T VISIT S GROUP 15 MINUTES [facility], 6 6 MEDICAL INPATIENT [facility] OFF[facility] 72297 [facility] 6 PHYSICIAN KAMILA T VISIT S GROUP 15 MINUT[facility], 6 6 [facility] INPATIENT [facility] UNIVERSIT - 6 6 Y [facility] T OFF[facility] 32469 [facility] T [facility] 6 6 Y [facility] T OFF[facility] 79338 [facility] 6 6 Y T V[facility]IT 5 [facility] 50052 [facility] PHYSICIAN KAMILA T VISIT S GROUP 15 MINUTES [facility] GOMEZ - 6 6 [facility] OUTPATIEN [facility], 6 6 MEDICAL INPATIENT CENTER [facility] EMERGENCY 27204 DALILA SINGH DEPT 6 6 PHYSICIAN KAMILA VISIT S, PLLC HIGH SEVERITY& THREAT FUN EMERGENCY 12167 [facility] DEPT 6 6 DESIRE NGOZI VISIT EMERGENCY HIGH PHYS SEVERITY& THREAT [facility] GOMEZ - 6 6 [facility] OUTPATIEN [facility] T OFFICE 67349 [facility] 6 6 PHYSICIAN KAMILA T VISIT S GROUP 15 MINUTES EMERGENCY 57919 [facility] 6 6 DESIRE DEPARTMEN EMERGENCY T VISIT PHYS MODERATE SEVERITY [facility] GOMEZ - 6 6 [facility] OUTPATIEN INC T OFFICE 49487 [facility] OUT[facility] 6 6 PHYSICIAN KAMILA T VISIT S GROUP 15 MINUTES [facility]OSPITAL GOMEZ - 6 6 [facility] OUTPATI[facility] INC T OFFICE 26128 [facility] 6 6 PHYSICIAN KAMILA T VISIT S GROUP 15 MINUTES [facility]OSPITAL [facility] - 6 6 [facility] INC T OFFICE 97184 [facility] 5 5 PHYSICIAN KAMILA T VISIT S GROUP 10 MINUTES OFFICE 79636 [facility] OUT[facility] 5 5 [facility] 15 MINUTES OFFICE 99134 [facility] OUTPATIEN 5 5 CULAR MAT T VISIT CONSULTAN 25 TS O MINUTES [facility] GOMEZ - 5 5 [facility] OUTPAT[facility] INC T OFFICE 43573 [facility] 5 5 PHYSICIAN KAMILA T VISIT S GROUP 15 MINUTES OFFICE 02566 [facility] MINAYAEMILI OUTPATIEN 5 5 [facility] 15 MINUTES [facility] CURRIE - 5 5 [facility] 14229 [facility] DESIRE MAR VISIT EMERGENCY HIGH PHYS SEVERITY& THREAT FUN OFFICE 90093 [facility] OUTPATIEN 5 5 PHYSICIAN KAMILA T VISIT S GROUP 10 MINUTES HOSPITAL G[facility] - 5 5 [facility] OUTPATIEN INC T OFFICE 93147 [facility] OUTPATIEN 5 5 CULAR MAT T VISIT CONSULTAN 25 TS O MINUTES [facility] GOMEZ - 5 5 [facility] OUTPATIEN [facility] GOMEZ - 5 5 [facility] OUTPATIEN INC T OFFICE 47000 CARDI[facility] BRITANY OUTPATIEN 5 5 CULAR MAT T VISIT CONSULTAN 40 TS O MINUTES OFFICE 95222 [facility] OUTPATIEN 5 5 PHYSICIAN KAMILA T VISIT S GROUP 15 MINUTES HOSPITAL GOMEZ - 5 5 [facility] OUTPATIEN [facility] T OFFICE 41379 CARDIOVAS BRITANY OUTPATIEN 5 5 CULAR MAT T VISIT CONSULTAN 25 TS O MINUTES HOSPITAL GOMEZ - 5 5 [facility] OUTPATIEN [facility] GOMEZ [facility] 5 5 [facility] OUTPATIEN [facility] T OFFICE 08798 [facility] FRANCISCO OUTPATIEN 5 5 PHYSICIAN KAMILA T VISIT S GROUP 10 MINUTES [facility] GOMEZ - 5 5 [facility] OUTPATIEN [facility] T OFFICE 64879 CARDIOVAS BRITANY OUTPATIEN 5 5 CULAR MAT T VISIT CONSULTAN 40 TS O MINUTES OFFICE 71965 [facility] OUTPATIEN 5 5 PHYSICIAN KAMILA T VISIT S GROUP 15 MINUTES OFFICE 78059 CARDIOVAS BRITANY OUTPATIEN 5 5 CULAR MAT T VISIT CONSULTAN 25 TS O MINUTES [facility] GOMEZ - 5 5 [facility] OUTPATIEN [facility] T OFFICE 30778 [facility] FRANC[facility] OUTPATIEN 5 5 PHYSICIAN KAMILA T VISIT S GROUP 15 MINUTES EMERGENCY 97830 MEADOWVIE DEPT [address] [facility] HIGH MEDICAL SEVERITY& THREAT [facility] MEADOWVIE - [address] [facility] T MEDICAL OFFICE 55514 [facility] OUTPATIEN 5 5 PHYSICIAN KAMILA T VISIT S GROUP 15 MINUTES OFFICE 70920 [facility] ALESHIAAMMADBaljit OUTPATIEN 5 5 [facility] T NEW 45 MEDICAL MINUTES [facility] - 5 5 HOSPITAL INPATIENT OFFICE 89788 [facility] OUTPATIEN 5 5 PHYSICIAN KAMILA T VISIT S GROUP 15 MINUTES OFFICE 59998 [facility] OUTPATIEN 5 5 PHYSICIAN KAMILA T VISIT S GROUP 15 MINUTES HOSPITAL MEADOWVIE - 5 5 W [facility] T MEDICAL OFFICE 65202 CARDIOVAS BLACK JAZZMINE OUTPATIEN 5 5 CULAR T NEW 60 CONSULTAN MINUTES TS [facility] CURRIE - OTHER 5 5 [facility] G[facility] - 5 5 [facility] T OFFICE 04927 [facility] OUTPATIEN 5 5 PHYSICIAN KAMILA T VISIT S GROUP 15 MINUTES OFFICE 04589 [facility] [place] OUTPATIEN 5 5 PHYSICIAN KAMILA T VISIT S GROUP 25 MINUTES HOSPITAL CURRIE - 5 5 [facility] T EMERGENCY 76921 [facility] 5 5 DES[facility] EMERGENCY T VISIT PHYS HIGH/URGE NT SEVERITY EMERGENCY 67279 CURRIE 5 5 CO [facility] T VISIT MODERATE SEVERITY OFFICE 53196 [facility] FRANC[facility]CO OUTPATIEN 5 5 PHYSICIAN KAMILA T NEW 20 S GROUP MINUTES OFFICE 47015 [facility] OUTPATI[facility] 5 5 CLINIC HEN T VISIT 15 MINUTES OFFICE 62094 UN[facility] OUTPATIEN 5 5 Y T VISIT HOSPITAL 10 MINUTES OFFICE 18894 TIFFANIE BONDSANTOSH OUTPATIEN 5 5 MEDICAL CECILIA T VISIT SERV 15 FOUNDATIO MINUTES HOSPITAL UNIVERSIT - 5 5 Y [facility] T OFFICE 94011 [facility] VA[facility] OUTPATIEN 4 4 CLINIC HEN T VISIT 15 MINUTES OFFICE 41269 [facility] OUTPATIEN 4 4 CLINIC HEN T VISIT 15 MINUTES OFFICE 17434 UNIVERSIT OUTPATIEN 4 4 Y T VISIT HOSPITAL 10 MINUTES HOSPITAL UNIVERSIT - 4 4 Y OUTPATIEN HOSPITAL T OFFICE 28526 S[facility] SANTOSH OUTPATIEN 4 4 CECILIA CECILIA T VISIT 15 MINUTES OFFICE 36494 [facility] KIRK OUTPATIEN 4 4 CLINIC NHI T VISIT 25 MINUTES OFFICE 67555 [facility] VA[facility]AV OUTPATIEN 4 4 CLINIC HEN T VISIT 15 MINUTES OFFICE 37083 [facility] OUTPATIEN 4 4 CLINIC T VISIT 25 MINUTES OFFICE 51792 [facility] HUTCHINS- OUTPATIEN 4 4 CLINIC SE YOSVANY T VISIT 25 MINUTES OFFICE 53715 SANTOS[facility] SANTOSH OUTPATIEN 4 4 CECILIA CECILIA T VISIT 15 MINUTES [facility] - 3 3 [employer] [facility] 40653 S[facility] SANTOSH OUTPATIEN 3 3 CECILIA CECILIA T VISIT 25 MINUTES OFFICE 98917 TAMARETrever ARAGON OUTPATIEN 3 3 Apr T VISIT 25 MINUTES OFFICE 79538 TAMAREN NABEELN OUTPATIEN 3 3 Apr T VISIT 25 MINUTES OFFICE 45159 TAMAREN DEBORAHAREN OUTPATIEN 3 3 Apr T VISIT 25 MINUTES OFFICE 50098 UNIVERSIT OUTPATIEN 3 3 Y T VISIT HOSPITAL 25 MINUTES OFFICE 84754 S[facility]OS[facility] SANTOSH OUTPATIEN 3 3 CECILIA CECILIA T VISIT 15 MINUTES HOSPITAL UNIVERSIT - 3 3 [facility] T OFFICE 18799 DEBORAHARETrever LEESN OUTPATIEN 2 2 Apr T VISIT 25 MINUTES OFFICE 88092 SANT[facility] BERNABEO OUTPATIEN 2 2 CECILIA CECILIA T VISIT 15 MINUTES OFFICE 11376 MARGO LEESTrever OUTPATIEN 2 2 Apr T VISIT 25 MINUTES OFFICE 04964 MARGO LEESTrever OUTPATIEN 2 2 Apr T VISIT 15 MINUTES HOSPITAL [facility], - 2 2 [employer] [facility] UN[facility] - 2 2 Y [facility] T OFFICE 09117 NABEELTrever DEBORAHSTIVEN OUTPATIEN 2 2 Apr T VISIT 15 MINUTES OFFICE 36744 MARGO LEESTrever OUTPATIEN 2 2 Apr T VISIT 25 MINUTES HOSPITAL UNIVERSIT - 2 2 Y [facility] T OFFICE 91606 SANTOSH BERNABEO OUTPATIEN 2 2 CECILIA CECILIA T VISIT 15 MINUTES [facility], - 2 2 [employer] [facility], - 2 2 [employer] [facility] 88677 MARGO LEESTrever OUTPATIEN 2 2 Apr T VISIT 25 MINUTES OFFICE 31061 MARGO LEESTrever OUTPATIEN 2 2 Apr T VISIT 15 MINUTES HOSPITAL UNIVERSIT - 2 2 Y [facility] T OFFICE 71558 JHONATHAN SNYDER OUTPATIEN 2 2 T VISIT 15 MINUTES OFFICE 70927 NABEELTrever DEBORAHSTIVEN OUTPATIEN 2 2 Apr T VISIT 25 MINUTES HOSPITAL JESSIE - 2 2 CO [facility] T OFFICE 61612 NABEELTrever ARAGON OUTPATIEN 1 1 CECILIA CECILIA T VISIT 25 MINUTES HOSPITAL UNIVERSIT - 1 1 Y [facility] T OFFICE 24791 SANTOSH FROST OUTPATIEN 1 1 CECILIA CECILIA T VISIT 15 MINUTES OFFICE 03715 [facility] 1 1 GRE GRE T NEW 45 [facility] JESSIE - 1 1 [facility] T OFFICE 35598 MARGO ARAGON OUTPATIEN 1 1 CECILIA CECILIA T VISIT 15 MINUTES OFFICE 32174 [facility] LEESTrever OUTPATIEN 1 1 CLINIC CECILIA T VISIT PSC 25 MINUTES [facility] JESSIE - 1 1 [facility] T OFFICE 82898 TIFFANIE [facility] 1 MEDICAL CECILIA T VISIT SERV 15 [facility] UNIVERSIT - 1 1 Y [facility] T OFFICE 27826 ALLRAN JR ALLRAN JR CONSULTAT 1 1 CALEB CALEB ION NEW/ESTAB PATIENT 40 MIN OFFICE 32582 [facility] ARAGON OUTPATIEN 1 1 CLINIC CECILIA T VISIT PSC 15 MINUTES OFFICE 92694 [facility] LEESTrever OUTPATIEN 1 1 CLINIC CECILIA T VISIT PSC 25 MINUTES HOSPITAL SERGIOWVIE - [address] [facility] MEDICAL OFFICE 34503 ONCOLOGY JAJA CHR OUTPATIEN 1 1 HEMATOLOG T VISIT Y CARE IN 25 MINUTES OFFICE 19462 [place] QUOC [place] OUTPATIEN 1 1 MEDICAL T VISIT SERV 25 [facility] JESSICAWVIE - [address] [facility] MEDICAL OFFICE 69393 ONCOLOGY SIGMUND OUTPATIEN 1 1 HEMATOLOG ADOLFO T VISIT Y CARE IN 15 MINUTES OFFICE 94002 [facility] ARAGON OUTPATIEN 1 1 CLINIC CECILIA T VISIT PSC 15 MINUTES OFFICE 68733 [facility]ON OUTPATIEN 1 1 CLINIC CECILIA T VISIT PSC 25 MINUTES HOSPITAL JESSIE - 1 1 CO [facility] T OFFICE 58725 CH[facility] ARAGON OUTPATIEN 1 1 CLINIC CECILIA T VISIT PSC 15 MINUTES HOSPITAL UNIVERSIT - 1 1 Y [facility] T OFFICE 49041 [place] SANTOSH OUTPATIEN 1 1 MEDICAL CECILIA T VISIT SERV 15 FOUNDATIO MINUTES OFFICE 89066 [facility] 1 HEMATOLOG T VISIT Y CARE IN 15 MINUTES HOSPITAL MEAWVIE - 1 1 [facility] CUR[facility] - 1 1 [facility] T OFFICE 40985 RINALDINI RINALDINI OUTPATIEN 1 1 ETHAN ETHAN T VISIT 15 MINUTES OFFICE 53631 [place] S[facility]OSH [facility] 1 MEDICAL CECILIA T VISIT SERV 15 [facility] CURRIE - 1 1 [facility] MEADOWVIE - [address] [facility] MEDICAL OFFICE 46426 RINALDINI RINALDINI OUTPATIEN 0 0 ETHAN ETHAN T VISIT 15 MINUTES HOSPITAL CURRIE - 0 0 [facility] CURRIE - 0 0 [facility] MEADOWVIE - [address] [facility] MEDICAL OFFICE 95384 [place] INA [facility] 0 0 MEDICAL PRA T VISIT SERV 10 [facility] CURRIE - 0 0 CO [facility] T OFFICE 55208 MAILE ESTRADAINI OUTPATIEN 0 0 ETHAN ETHAN T VISIT 15 MINUTES EMERGENCY 50140 JESSIE 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 0 0 CO Y VISIT HOSPITAL CORPORATI HIGH ON OF AM SEVERITY& [facility]AT [facility] 0 CO [facility] T OFFICE 84149 [facility] ETHAN ETHAN T VISIT 25 MINUTES HOSPITAL CURRIE - 0 0 CO [facility] T [facility] CURRIE - 0 0 CO [facility] T [facility] MEADOWVIE - 0 0 W [facility] T MEDICAL OFFICE 31064 MARKUSERROL ESTRADAINI [facility] ETHAN ETHAN T VISIT 25 MINUTES HOSPITAL JESSIE - 0 0 CO [facility] T EMERGENCY 69803 MARKUSERROL APARICIOALDINI 0 0 ETHAN ETHAN DEPARTMEN T VISIT MODERATE SEVERITY EMERGENCY 75419 JESSIE 0 0 CO [facility] T VISIT LOW/MODER SEVERITY HOSPITAL UNIVERSIT - 0 0 Y [facility] T HOSPITAL UNIVERSIT - 0 0 Y [facility] T OFFICE 38833 TIFFANIE BONDSANTOSH [facility] 0 0 MEDICAL CECILIA T VISIT SERV 15 FOUNDATIO MINUTES [facility] CURRIE - 0 0 CO [facility] T HOME [facility], 0 0 HOME [facility] T [facility] JESSIE - 0 0 CO [facility] T OFFICE 02477 [facility] 5 HOSPITAL MINUTES OFFICE 19184 JESSIE OUTPATIEN 0 0 CO T VISIT [facility] JESSIE - 0 0 CO [facility] T OFFICE 75651 JESSIE OUTPATIEN 0 0 CO T VISIT 5 [facility]IE - 0 0 CO [facility] T EMERGENCY 99789 NATALIEINI RINALDINI 0 0 , ETHAN GAXIOLA M [facility] T VISIT HIGH/URGE NT SEVERITY EMERGENCY 32259 JESSIE 0 0 [facility] T VISIT LIMITED/M INOR PROB HOSPITAL JESSIE - 0 0 CO [facility] T OFFICE 30983 MAILE ESTRADAINI OUTPATIEN 0 0 , ETHAN GAXIOLA M T VISIT 10 MINUTES HOSPITAL MEADOWVIE - 0 0 W [facility] OFFICE 07018 ONCOLOGY JAJA, OUTPATIEN 0 0 HEMATOLOG BRITTANY M T VISIT Y CARE 15 [facility] CURRIE - 0 0 CO [facility] HOME [facility], 0 0 HOME [facility] JESSIE - 0 0 CO INPATIENT HOSPITAL EMERGENCY 52867 JESSIE 0 0 [facility] T VISIT LOW/MODER SEVERITY HOSPITAL JESSIE - 0 0 CO [facility] EMERGENCY 80043 JESSIE RINALDINI 0 0 CO , MINOR [facility] T VISIT LIMITED/M INOR PROB HOSPITAL JESSIE - 0 0 [facility] T OFFICE 36303 ONCOLOGY JAJA, OUTPATIEN 0 0 HEMATOLOG BRITTANY M T VISIT Y CARE 25 INC [facility] H[facility]PITAL MEADOWVIE - 0 0 W [facility] HOME [facility], 0 0 HOME [facility] T OFFICE 84477 RINALDINI RINALDINI OUTPATIEN 0 0 , MINOR , MINOR T VISIT 25 MINUTES OFFICE 72892 RINALDINI RINALDINI OUTPATIEN 0 0 , MINOR , MINOR T VISIT 15 MINUTES OFFICE 43638 [place] SANTOSH OUTPATIEN 0 0 MEDICAL , HANNAH T VISIT SERV 15 FOUNDATIO MINUTES OFFICE 17506 [facility] 0 0 , MINOR , MINOR T VISIT 15 MINUTES HOSPITAL MEADOWVIE - 0 0 W [facility] OFFICE 73190 [place] INA CONSULTAT 0 0 MEDICAL PRA ION SERV NEW/ESTAB FOUNDATIO PATIENT 30 MIN OFFICE 82285 [place] SANTOSH OUTPATIEN 0 0 MEDICAL CECILIA T VISIT SERV 25 FOUNDATIO MINUTES [facility] UNIVERSIT - 0 0 Y [facility] T OFFICE 53749 [place] SANTOSH CONSULTAT 0 0 MEDICAL CECILIA ION SERV NEW/ESTAB FOUNDATIO PATIENT 80 MIN HOSPITAL UNIVERSIT - 0 0 Y [facility] T OFFICE 42081 [facility] T VISIT [facility] JESSIE - 8 8 CO [facility] T OFFICE 07804 [facility] 8 8 CO T VISIT 5 [facility] JESSIE - 8 8 CO [facility] JESSIE - 8 8 CO [facility] T OFFICE 81901 JESSIE [facility] 8 8 CO T VISIT 5 HOSPITAL MINUTES EMERGENCY 45769 JESSIE 8 8 CO [facility] T VISIT LIMITED/M INOR PROB [facility] JESSIE - 8 8 [facility] T OFFICE 76759 CHENCHODOTTIE ARAGON [facility] 8 8 CLINIC CHAMP T NEW 20 PSC MINUTES [facility] JESSIE - 8 8 [facility] T OFFICE 15870 MAILE ESTRADAINI [facility] 8 8 , ETHAN GAXIOLA T VISIT 5 MINUTES [facility] JESSIE - 8 8 [facility] T OFFICE 58117 MAILE ESTRADAINI [facility] 8 8 , ETHAN GAXIOLA T VISIT 5 MINUTES OFFICE 65428 NATALIEINI NATALIEINI [facility] 8 8 , ETHAN GAXIOLA T VISIT 5 MINUTES OFFICE 61070 NATALIEINI NATALIEINI [facility] 8 8 , ETHAN GAXIOLA T VISIT 5 MINUTES
--- OUTSIDE RECORDS SUMMARY | 2017-02-06 01:24 | External Medical Summary Rpt | CCD ---
Demographics Preferred Language Emirati Marital Status Unknown Rastafarian Affiliation Unknown Race Unknown Ethnic Group Unknown Author Author , NAZ CHIDLS Address Unknown Phone Immunization Unable to retrieve immunization data due to connection failure with Immunization Registry. Please try again later.
--- OUTSIDE RECORDS SUMMARY | 2017-02-06 01:24 | External Medical Summary Rpt | CCD ---
Demographics Preferred Language Dutch Marital Status Unknown Sabianism Affiliation Unknown Race Unknown Ethnic Group Unknown Author Author , NAZ CHILDS Address Unknown Phone Immunization Unable to retrieve immunization data due to connection failure with Immunization Registry. Please try again later.
--- OUTSIDE RECORDS SUMMARY | 2017-02-06 01:28 | External Medical Summary Rpt ---
[...] - 2:00 PM source [facility] data OTS [id number] [facility], [place], [place] [address]Lab Directo r: Klaus Santos MD, Phone: [phone] Opiates Negativ Cutoff= No No Opiate Sep [...] - 2:15 PM source [facility] data OTS [id number] [address] [facility], [place], [place] [address] 53Lab Directo r: Klaus Santos MD, Phone: [phone] Opiates Negativ Cutoff= No No Opiate Dec [...] metabol ic variabl es, specifi c drug chemistry research assistant ry, andspec imen charact eristic s can affect test outcome . Technic alconsu ltation is availab le if a test result is inconsi stent with anexpec dg outcome . (email- [email or web address] or call [employer] [phone] )Drug brands, if listed herein, are tradema rks of their respect sammy santiagoPerf ormed at: - [facility] [id number] [place], [place] [address] 53Lab Directo r: Klaus Santos MD, Phone: [phone] Oxazepa Negativ Cutoff= No No No September [...] source source source data data data data [facility] L\\.br\\ [address]\\.br \\ [place] [address]\\. br\\\\.br \\ ------- --NAME- ------- - NUMBER SEX AGE ADMIT DISC. XRAY# F/C TYPE\\.b r\\ AKANKSHA PATTERSON [id number] M 61 07/31/16 07/31/16 53794 XAB E/R\\.br \\ DATE OF : [birth year] M/R# [id number] PH#: RM ERTTT\\. br\\ LOCATIO N: TRANSCR IBED: 7 8:10\\.b r\\ XR HAND LEFT 3 VIEWS 68497 COMPLET ED: 09/11 21:41 [facility] [address]\\. br\\ Diagnos is: .\\.br\\\\ .br\\ PHYSICI AN: [...] TIC USE ONLY TEST PERFORM ED BY: [facility] [place] [address]([phone])[place] DICAL DIRECTO R: Eddie Dickson MD Urinalysis [...] 2017 tion in tion in tion in CAM.Cardoz 10:59 source source source PLETE PM data [...] 2017 tion in tion in tion in CAM.Cardoz 10:58 source source source PLETE PM data [...] source source source data data data data [facility] L\\.br\\ [address]\\.br \\ [place] Y [address]\\. br\\\\.br \\ ------- --NAME- ------- - NUMBER SEX AGE ADMIT DISC. XRAY# F/C TYPE\\.b r\\ VALE YESENIA [id number] M 61 07/17/16 07/17/16 96781 XAB E/R\\.br \\ DATE OF : 9[birth year] M/R# [id number] PH#: RM ERFFF\\. br\\ LOCATIO N: TRANSCR IBED: 7 8:54\\.b r\\ [place] [address] COMPLET ED:06/27 07/12 26 RLH 62796\\. br\\ {REASON FOR CHEST: COUGH\\. br\\\\.br \\ [...] source source source data data data data [facility] L\\.br\\ [address]\\.br \\ [facility] Y [address]\\. br\\\\.br \\ ------- --NAME- ------- - NUMBER SEX AGE ADMIT DISC. XRAY# F/C TYPE\\.b r\\ AKANKSHA PATTERSON [id number] M 61 07/17/16 71837 XAB E/R\\.br \\ DATE OF : 9[birth year] M/R# [id number] PH#: RM ERFFF\\. br\\ LOCATIO N: TRANSCR IBED: 7 21:44\\. br\\ CT HEAD WITHOUT 86837 COMPLET ED: 51682\\. br\\ {REASON FOR TEST: VERTIGO \\.br\\\\. br\\ [...] source source source data data data data [facility] L\\.br\\ [address]\\.br \\ [facility] Y [address]\\. br\\\\.br \\ ------- --NAME- ------- - NUMBER SEX AGE ADMIT DISC. XRAY# F/C TYPE\\.b r\\ AKANKSHA PATTERSON [id number] M 60 01/11/16 01/11/16 57376 XAB O/P\\.br \\ DATE OF : 9[birth year] M/R# [id number] PH#: RM\\.br\\ LOCATIO N: TRANSCR IBED: 6 10:24\\. br\\ XR MODIFIE D BA SWALLOW 58177 COMPLET ED: 85873\\. br\\ {REASON FOR TEST: [place]SP[place]\\.br\\ \\.br\\ [...] source source source data data data data [facility] L\\.br\\ [address]\\.br \\ [facility] Y [address]\\. br\\\\.br \\ ------- --NAME- ------- - NUMBER SEX AGE ADMIT DISC. XRAY# F/C TYPE\\.b r\\ VALEMARY PATTERSON [id number] M 60 12/22/15 32477 XAB E/R\\.br \\ DATE OF : 9[birth year] M/R# [id number] PH#: [facility]\\. br\\ LOCATIO N: TRANSCR IBED: 6 17:28\\. br\\ CT HEAD WITHOUT 70070 COMPLET ED:11/27 10/11 17:35 [facility] [address]\\. br\\ {REASON FOR TEST: syncope \\.br\\\\. br\\ [...] source source AM data data data data [facility] L\\.br\\ [address]\\.br \\ [place] [address]\\. br\\\\.br \\ ------- --NAME- ------- - NUMBER SEX AGE ADMIT DISC. XRAY# F/C TYPE\\.b r\\ VALEMARY PATTERSON [id number] M 60 07/28/15 23344 XA I/P\\.br \\ DATE OF : 9[birth year] M/R# [id number] PH#: RM 252\\.br \\ LOCATIO N: TRANSCR IBED: 6 12:28\\. br\\ XR MODIFIE D BA SWALLOW 88576 COMPLET ED: 08/11 10:50 AJJ 99677\\. br\\ {REASON FOR TEST: DIFF SWALLOW ING\\.br [...] BLOOD /LM53//UP01/ IS STILL REQUIRED./LM01/ Date................. Time..............Tech...................... COMMENT:_Notified_Walter_Barbara._07/29/15_@_2340_unit_ready_([facility]) ____ 07/30/15.CAM. /LM31/TO BE COMPLETED BY NURSING/LM01/ [...] BLOOD /LM53//UP01/ IS STILL REQUIRED./LM01/ Date................. Time..............Tech...................... COMMENT:_Richard_Walter_Barbara._07/29/15_@_2340_unit_ready_([facility]) ____ 07/30/15.CAM. /LM31/TO BE COMPLETED BY NURSING/LM01/ [...] BLOOD /LM53//UP01/ IS STILL REQUIRED./LM01/ Date................. Time..............Tech...................... COMMENT:_Notified_Walter_Barbara._07/29/15_@_2340_unit_ready_([facility]) ____ 07/30/15.313.CAM. /LM31/TO BE COMPLETED BY NURSING/LM01/ [...] BLOOD /LM53//UP01/ IS STILL REQUIRED./LM01/ Date................. Time..............Tech...................... COMMENT:_Notified_Walter_Barbara._07/29/15_@_2340_unit_ready_([facility]) ____ 07/30/15.CAM. /LM31/TO BE COMPLETED BY NURSING/LM01/ [...] BLOOD /LM53//UP01/ IS STILL REQUIRED./LM01/ Date................. Time..............Tech...................... COMMENT:_Notified_Walter_Barbara._unit_ready_@_2327_([facility]) ____ 07/29/15.2324.CAM. /LM31/TO BE COMPLETED BY NURSING/LM01/ [...] ------- ------- ------- ------S doug Number : [id number] Request ed : 6Specim en Source : [...] Source : Kody lauren ID # : [id number] FINAL Repor t Date : / / [...] Source : Kody lauren ID # : [id number] FINAL Repor t Date : / / [...] tion in tion in 4:15 PM s [facility] source source source source data data data [...] source source source data data data data [facility] L\\.br\\ [address]\\.br \\ [facility] [place] [address]\\. br\\\\.br \\ RADIOLO GY REPORT\\ .br\\ Name: AKANKSHA PATTERSON\\. br\\ Patient #: [id number] Stay Type: E/R\\.br \\ Age: 60 Room: ERTTT\\. br\\ : 953 Sex: M\\.br\\ Orderin g Phys: EVERARDO NGOZI MR#: [id number]\\. br\\ Family Phys: FRANCISCO HAY Pt Phone: [phone]\\. br\\ Admitti ng Phys: PRINCE MELVIN\\.br \\ Unsig venus Transcr iptions represe nt a prelimi nary report and do\\.br\\ not reflect a medical or legal documen t.\\.b r\\\\.br\\ \\.br\\ [place] [address] COMPLET E:07/26 15:01 CGS 79068\\. br\\ (REASON FOR CHEST: COUGH\\. br\\\\.br \\\\.br\\\\ [...] source source source data data data data [facility] L\\.br\\ [address]\\.br \\ [place] [address]\\. br\\\\.br \\ RADIOLO GY REPORT\\ .br\\ Name: AKANKSHA PATTERSON\\. br\\ Patient #: [id number] Stay Type: I/P\\.br \\ Age: 60 Room: [facility]\\.b r\\ : 953 Sex: M\\.br\\ Orderin g Phys: PEPPER MAR MR#: [id number]\\. br\\ Family Phys: FRANCISCO HAY Pt Phone: [phone]\\. br\\ Admitti ng Phys: SHELLIE IMR\\.br \\ Unsig venus Transcr iptions represe nt a prelimi nary report and do\\.br\\ not reflect a medical or legal documen t.\\.b r\\\\.br\\ \\.br\\ [place] [address] COMPLET E:03/06 14:48 RLH 8106\\.b r\\ (REASON [...] source source source data data data data [facility]\\.br\\ [address]\\.br \\ [place] [address]\\. br\\\\.br \\ RADIOLO GY REPORT\\ .br\\ Name: AKANKSHA PATTERSON\\. br\\ Patient #: [id number] Stay Type: E/R\\.br \\ Age: 59 Room: [facility]\\. br\\ : 953 Sex: M\\.br\\ Orderin g Phys: ALO EN, MR#: [id number]\\. br\\ Family Phys: DAVIDSO N D Pt Phone: [phone]\\. br\\ Admitti ng Phys: OMERGA N J\\.br\\ Unsig venus Transcr iptions represe nt a prelimi nary report and do\\.br\\ not reflect a medical or legal documen t.\\.b r\\\\.br\\ \\.br\\ [place] [address] COMPLET E:08/26 17:41 ASN [id number]\\. br\\ (REASON FOR CHEST: COPD\\.b r\\\\.br\\ \\.br\\\\. [...] Dictate d By: IRAM LYLES MD [facility]\\.b r\\ Transcr . Date/Ti me: 08/26/14:45 Transcr . Init.: ruby\\.br \\\\.br\\ Copy for: NICHO CHANG\\.br\\ Copy for: YVONNE PEACOCK MD\\.br\\ KERRY MANCINI\\.br \\\\.br\\
--- OUTSIDE RECORDS SUMMARY | 2017-02-06 01:28 | External Medical Summary Rpt ---
[...] - 2:00 PM source [facility] data OTS [id number] [facility], [place], [place] [id number] 53Lab Directo r: Klaus Santos MD, Phone: [phone] Opiates Negativ Cutoff= No No Opiate Sep [...] - 2:15 PM source [facility] data OTS [id number] [facility], [place], [place] [id number] 53Lab Directo r: Klaus Santos MD, Phone: [phone] Opiates Negativ Cutoff= No No Opiate Dec [...] metabol ic variabl es, specifi c drug forensic chemist ry, andspec imen charact eristic s can affect test outcome . Technic alconsu ltation is availab le if a test result is inconsi stent with anexpec gd outcome . (email- emily bullock @[employer] or call [employer] [phone] )Drug brands, if listed herein, are tradema rks of their respect sammy santiagoPerf ormed at: - [facility] [id number] [place], [place] [id number] 53Lab Directo r: Klaus Santos MD, Phone: [phone] Oxazepa Negativ Cutoff= No No No September [...] source source source data data data data [facility]\\.br\\ [address]\\.br \\ [place] [address]\\. br\\\\.br \\ ------- --NAME- ------- - NUMBER SEX AGE ADMIT DISC. XRAY# F/C TYPE\\.b r\\ AKANKSHA PATTERSON [id number] M 61 07/31/16 07/31/16 48016 XAB E/R\\.br \\ DATE OF : [birth year] M/R# [id number] PH#: RM ERTTT\\. br\\ LOCATIO N: TRANSCR IBED: 7 8:10\\.b r\\ XR HAND LEFT 3 VIEWS 49660 COMPLET ED: 09/11 21:41 [facility] [address]\\. br\\ Diagnos is: .\\.br\\\\ .br\\ PHYSICI AN: [...] TIC USE ONLY TEST PERFORM ED BY: [facility] [place] [phone])[place] DICAL DIRECTO R: Eddie Dickson MD Urinalysis [...] 2017 tion in tion in tion in CAM[employer] 10:59 source source source PLETE PM data [...] 2017 tion in tion in tion in CAM[employer] 10:58 source source source PLETE PM data [...] source source source data data data data [facility] L\\.br\\ [address]\\.br \\ [place] Y [address]\\. br\\\\.br \\ ------- --NAME- ------- - NUMBER SEX AGE ADMIT DISC. XRAY# F/C TYPE\\.b r\\ VALE YESENIA [id number] M 61 07/17/16 07/17/16 66483 XAB E/R\\.br \\ DATE OF : 9[birth year] M/R# [id number] PH#: RM ERFFF\\. br\\ LOCATIO N: TRANSCR IBED: 7 8:54\\.b r\\ [place] [address] COMPLET ED:06/27 07/12 26 RLH 94022\\. br\\ {REASON FOR CHEST: COUGH\\. br\\\\.br \\ [...] source source source data data data data [facility] L\\.br\\ [address]\\.br \\ [facility] Y [address]\\. br\\\\.br \\ ------- --NAME- ------- - NUMBER SEX AGE ADMIT DISC. XRAY# F/C TYPE\\.b r\\ AKANKSHA PATTERSON [id number] M 61 07/17/16 71580 XAB E/R\\.br \\ DATE OF : [birth year] M/R# 82063 PH#: RM ERFFF\\. br\\ LOCATIO N: TRANSCR IBED: 7 21:44\\. br\\ CT HEAD WITHOUT 61785 COMPLET ED: 72547\\. br\\ {REASON FOR TEST: VERTIGO \\.br\\\\. br\\ [...] source source source data data data data [facility]\\.br\\ [address]\\.br \\ [facility] Y [address]\\. br\\\\.br \\ ------- --NAME- ------- - NUMBER SEX AGE ADMIT DISC. XRAY# F/C TYPE\\.b r\\ AKANKSHA PATTERSON [id number] M 60 01/11/16 01/11/16 84620 XAB O/P\\.br \\ DATE OF : 9[birth year] M/R# [id number] PH#: RM\\.br\\ LOCATIO N: TRANSCR IBED: 6 10:24\\. br\\ XR MODIFIE D BA SWALLOW 04534 COMPLET ED: 68118\\. br\\ {REASON FOR TEST: DYSPHAG IA\\.br\\ \\.br\\ [...] source source source data data data data [facility]\\.br\\ [address]\\.br \\ [facility] Y [address]\\. br\\\\.br \\ ------- --NAME- ------- - NUMBER SEX AGE ADMIT DISC. XRAY# F/C TYPE\\.b r\\ VALEMARY PATTERSON [id number] M 60 12/22/15 08574 XAB E/R\\.br \\ DATE OF : 9[birth year] M/R# [id number] PH#: [facility]\\. br\\ LOCATIO N: TRANSCR IBED: 6 17:28\\. br\\ CT HEAD WITHOUT 61399 COMPLET ED:11/27 10/11 17:35 [facility] [address]\\. br\\ {REASON FOR TEST: syncope \\.br\\\\. br\\ [...] source source AM data data data data [facility] L\\.br\\ [address]\\.br \\ [place] [address]\\. br\\\\.br \\ ------- --NAME- ------- - NUMBER SEX AGE ADMIT DISC. XRAY# F/C TYPE\\.b r\\ VALEMARY PATTERSON [id number] M 60 07/28/15 87686 XA I/P\\.br \\ DATE OF : 9[birth year] M/R# [id number] PH#: RM 252\\.br \\ LOCATIO N: TRANSCR IBED: 6 12:28\\. br\\ XR MODIFIE D BA SWALLOW 05925 COMPLET ED: 08/11 10:50 AJJ 33057\\. br\\ {REASON FOR TEST: DIFF SWALLOW ING\\.br [...] BLOOD /LM53//UP01/ IS STILL REQUIRED./LM01/ Date................. Time..............Tech...................... COMMENT:_Notified_Walter_Barbara._07/29/15_@_2340_unit_ready_([facility]) ____ 07/30/15.CAM. /LM31/TO BE [...] BLOOD /LM53//UP01/ IS STILL REQUIRED./LM01/ Date................. Time..............Tech...................... COMMENT:_Richard_Walter_Barbara._07/29/15_@_2340_unit_ready_([facility]) ____ 07/30/15.CAM. /LM31/TO BE [...] BLOOD /LM53//UP01/ IS STILL REQUIRED./LM01/ Date................. Time..............Tech...................... COMMENT:_Notified_Walter_Barbara._07/29/15_@_2340_unit_ready_([facility]) ____ 07/30/15.313.CAM. /LM31/TO BE [...] BLOOD /LM53//UP01/ IS STILL REQUIRED./LM01/ Date................. Time..............Tech...................... COMMENT:_Notified_Walter_Barbara._07/29/15_@_2340_unit_ready_([facility]) ____ 07/30/15.CAM. /LM31/TO BE [...] BLOOD /LM53//UP01/ IS STILL REQUIRED./LM01/ Date................. Time..............Tech...................... COMMENT:_Notified_Walter_Barbara._unit_ready_@_2327_([facility]) ____ 07/29/15.2324.CAM. /LM31/TO BE [...] ------- ------- ------- ------S doug Number : [id number] Request ed : 6Specim en Source : [...] Source : Kody lauren ID # : [id number] FINAL Repor t Date : / / [...] Source : Kody lauren ID # : [id number] FINAL Repor t Date : / / [...] tion in tion in 4:15 PM s [facility] source source source source data data [...] source source source data data data data [facility]\\.br\\ [address]\\.br \\ [place] [address]\\. br\\\\.br \\ RADIOLO GY REPORT\\ .br\\ Name: AKANKSHA PATTERSON\\. br\\ Patient #: [id number] Stay Type: E/R\\.br \\ Age: 60 Room: ERTTT\\. br\\ : 953 Sex: M\\.br\\ Orderin g Phys: EVERARDO NGOZI MR#: [id number]\\. br\\ Family Phys: FRANCISCO HAY Pt Phone: [phone]\\. br\\ Admitti ng Phys: PRINCE MELVIN\\.br \\ Unsig venus Transcr iptions represe nt a prelimi nary report and do\\.br\\ not reflect a medical or legal documen t.\\.b r\\\\.br\\ \\.br\\ [place] [address] COMPLET E:07/26 15:01 CGS 55101\\. br\\ (REASON FOR CHEST: COUGH\\. br\\\\.br \\\\.br\\\\ [...] source source source data data data data [facility]\\.br\\ [address]\\.br \\ [place] [address]\\. br\\\\.br \\ RADIOLO GY REPORT\\ .br\\ Name: AKANKSHA PATTERSON\\. br\\ Patient #: [id number] Stay Type: I/P\\.br \\ Age: 60 Room: [facility]\\.b r\\ : 953 Sex: M\\.br\\ Orderin g Phys: PEPPER MAR MR#: [id number]\\. br\\ Family Phys: FRANCISCO HAY Pt Phone: [phone]\\. br\\ Admitti ng Phys: SHELLIE IMR\\.br \\ Unsig venus Transcr iptions represe nt a prelimi nary report and do\\.br\\ not reflect a medical or legal documen t.\\.b r\\\\.br\\ \\.br\\ [place] [address] COMPLET E:03/06 14:48 RLH 8106\\.b r\\ (REASON [...] Date/Ti me: 03/06/15 /14:47 Dictate d By: Sada WELDON MD RADIOLO GIST\\.b r\\ Transcr . [...] source source PM data data data data Tai n, multipl y GFR by 1.120. *GFR [...] source source source data data data data [facility] L\\.br\\ [address]\\.br \\ [place] [address]\\. br\\\\.br \\ RADIOLO GY REPORT\\ .br\\ Name: AKANKSHA PATTERSON\\. br\\ Patient #: [id number] Stay Type: E/R\\.br \\ Age: 59 Room: [facility]\\. br\\ : 953 Sex: M\\.br\\ Orderin g Phys: ALO EN, MR#: [id number]\\. br\\ Family Phys: DAVIDSO N D Pt Phone: [phone]\\. br\\ Admitti ng Phys: OMERGA N J\\.br\\ Unsig venus Transcr iptions represe nt a prelimi nary report and do\\.br\\ not reflect a medical or legal documen t.\\.b r\\\\.br\\ \\.br\\ [place] [address] COMPLET E:08/26 17:41 ASN 92188\\. br\\ (REASON FOR CHEST: COPD\\.b r\\\\.br\\ \\.br\\\\. [...] Dictate d By: IRAM LYLES MD RADIOLO [facility]\\.b r\\ Transcr . Date/Ti me: 08/26/14:45 Transcr . Init.: ruby\\.br \\\\.br\\ Copy for: NICHO CHANG\\.br\\ Copy for: YVONNE PEACOCK MD\\.br\\ KERRY MANCINI\\.br \\\\.br\\
--- NOTE | 2017-02-11 10:58 | DISCHARGE SUMMARY STANDARD ---
Demographics Admit date: 01/26/17 Discharge date: 01/27/17 History of present illness History of present illness 61-year-old white male with 2 day history of increasing weakness, shortness of breath and fatigue. He has noted increased cough with decreased appetite. Upon further questioning patient has had some lightheadedness and dizziness with jaw discomfort over the last several weeks. Symptoms occur after exercise when he is sitting down and resolve spontaneously. Limiting symptoms for his activity is weakness and he denies chest pain. Upon evaluation in the ER yesterday elevated troponins were noted and patient was admitted for pneumonia and a non-STEMI. Cardiology consulted for evaluation and recommendations. Electrocardiogram is sinus with no acute ST elevation. Hospital Course Hospital Course: pt left ama with out recommened treatment. cardiology consult: Assessment: 1. Elevated troponin consistent with non-STEMI. Continue aspirin and Plavix. Plan for LEFT heart catheterization today. 2. Chronic obstructive pulmonary disease with continued tobacco use 3. RIGHT lower lobe pneumonia by chest x-ray, on antibiotics. Recurrent pneumonia due to aspiration since treatment for throat cancer and non-compliance with dietary recommendations (thickened liquids). 4. Hyponatremia 5. Mild anemia 6. Hyperlipidemia, on statin therapy. LDL 30. 7. Hypothyroidism, on replacement therapy 8. Possible lung cancer 9. History of throat cancer 10. Bilateral carotid bruits with history of stenting bilaterally. Will obtain carotid ultrasound for follow-up. Recommendations: See above. Discharge diagnoses Problem List 1. Renal insufficiency 2. CAP (community acquired pneumonia) 3. Non-STEMI (non-ST elevated myocardial infarction) 4. Radiculopathy of lumbar region 5. Dysphagia Medications Medications: Discharge meds are as noted. Follow up Follow up in office in: 3 DAYS with: Anna MORENO,Klaus Cabrera at [phone]
== END 2017-01-27 17:02 | disposition left against medical advice (07) | DRG 249 ==
LOC: ER 19:18 → 2ND 20:24 → ER 20:24 → 2ND 20:24
PROVIDERS: Emergency Medicine; Internal Medicine
PROC: 02703DZ Dilation of Coronary Artery, One Artery with Intraluminal Device, Percutaneous Approach (ICD-10-PCS; principal; 2017-01-27 11:00)
PROC: B2151ZZ Fluoroscopy of Left Heart using Low Osmolar Contrast (ICD-10-PCS; principal; 2017-01-27 11:00)
PROC: B2111ZZ Fluoroscopy of Multiple Coronary Arteries using Low Osmolar Contrast (ICD-10-PCS; principal; 2017-01-27 11:00)
PROC: 4A023N7 Measurement of Cardiac Sampling and Pressure, Left Heart, Percutaneous Approach (ICD-10-PCS; principal; 2017-01-27 11:00)
DX: I21.4 Non-ST elevation (NSTEMI) myocardial infarction (principal); Z99.81 Dependence on supplemental oxygen; J44.9 Chronic obstructive pulmonary disease, unspecified; I25.10 Atherosclerotic heart disease of native coronary artery without angina pectoris; Z85.118 Personal history of other malignant neoplasm of bronchus and lung; Z72.0 Tobacco use; Z95.828 Presence of other vascular implants and grafts
CPT/HCPCS: C1725; C1760; C1769; C1876; C1894; J0456; J1644; Q9967

== ENCOUNTER → 2017-02-11 | Outpatient (CLI) | payer MEDICAID ==
[~2017-02-11] MED LIST changes: +ATROVENT H0.017 MG/A IH; +DIAZEPAM5 M1 PO; +FLOMAX 0.4MG C0.4 MG PO; +LYRICA150 M1 PO; +LYRICA50 MG PO; +MECLIZINE HYDRO25 MG PO; +NEXIUM 24HR20 MG PO; +SPIRIVA HA1 PUFF/INH IH; +SYMBICORT1 AE1 IH; +XOPENOX 0.0.63 MG/3 IN
[2017-02-11 20:04] LABS: AMPHETAMINES/METAMPHETAMINES NEGATIVE ng/mL (<1000)
== END ==
LOC: LAB 18:35
PROVIDERS: Emergency Medicine
DX: Z79.899 Other long term (current) drug therapy (principal)